=== PATIENT | male | born 1970 | race Caucasian/White ===

== ENCOUNTER → 2018-03-03 17:24 | Outpatient (CLI) | payer OTHER, SELFPAY ==
--- NOTE | 2018-03-03 17:27 | RAD_ITS ---
STUDY: X-RAY - LUMBAR SPINE REASON FOR EXAM: Male, 47 years old. Left hip has lost mobility. TECHNIQUE: 5 view(s) of the lumbar spine were obtained. COMPARISON: None FINDINGS: Normal lumbar lordosis. There is no substantial scoliosis. There is a normal alignment of the vertebrae. There is minimal L3 and L4 endplate spondylosis of the lumbar vertebrae. Normal disc space heights. The soft tissue structures are unremarkable. RAD/L/S Spine Min 4 Views IMPRESSION: Minimal degenerative changes. Electronically Signed: Lynnette Vee MD at 7:29 EDT , Service support ,
== END ==
PROVIDERS: Family Provider Family Medicine; PCP Family Medicine; Referring Provider Family Medicine; Visit Provider Family Medicine
DX: M54.5 Low back pain (principal)
CPT/HCPCS: 72110

== ENCOUNTER → 2018-08-29 15:26 | Outpatient (CLI) | payer OTHER, SELFPAY ==
[2015-01-31 08:19] VITALS: BMI 37.0
[2018-08-29 17:48] LABS: Absolute Lymphocyte Count 2.26 X10^3/ul (0.83-4.51); Absolute Neutrophil Count 3.9 X10^3/uL (2.0-7.7); Basophil# 0.02 X10^3/uL; Basophil% 0.3 % (0-1); Eosinophil# 0.09 X10^3/uL; Eosinophils% 1.3 % (0-5); Hematocrit 44.9 % (40-54); Hemoglobin 14.9 g/dl (13.0-16.5); Lymphocyte # 2.26 X10^3/ul (4.0); Mean Corp Hgb Conc 33.2 g/gl (32-36); Mean Corpuscular Hgb 28.2 pg (27.0-32.0); Mean Platelet Vol. 9.4 fl (6.2-12.0); Monocyte# 0.57 X10^3/uL; Monocyte% 8.3 % (0-10); Platelet Count 230 K/mm3 (150-450); RBC Distribution Width CV 12.8 % (11.6-14.6); RBC Distribution Width SD 39.8 fl (35.1-43.9); Red Blood Count 5.28 M/mm3 (4.6-6.2); White Blood Count 6.9 K/mm3 (4.4-11.0)
[2018-08-29 18:04] LABS: POSITIVE COUNT NO; POSITIVE DIFFERENTIAL NO; POSITIVE MORPHOLOGY NO
[2018-08-29 18:07] LABS: Erythrocyte Sedimentation Rate 23 mm/hr (0-15)
[2018-08-29 18:36] LABS: ALB/GLOB Ratio 1.1 RATIO (0.9-2.4); AST(SGOT) 28 U/L (15-37); Alanine Aminotransfer ALT/SGPT 48 U/L (16-61); Albumin, Serum 4.1 g/dL (3.2-5.0); Alkaline Phosphatase 78 U/L (45-117); Anion Gap 7 (5-15); BUN 17 mg/dL (7-18); BUN/Creat Ratio 15.7 RATIO (10-20); Calcium,Total 8.7 mg/dL (8.5-10.1); Chloride 107 mmol/L (98-107); Creatinine, Serum 1.08 mg/dL (0.70-1.30); EST Glomerular Filtration Rate 78 mL/min (>60); Est Glom Filt Rate - Afr Amer 95 mL/min (>60); Globulin 3.6 g/dL (2.2-4.2); Glucose 166 mg/dL (74-106); Iron 100 ug/dL (65-175); Magnesium 1.9 mg/dL (1.6-2.6); Potassium 4.1 mmol/L (3.5-5.1); Protein, Total 7.7 g/dL (6.4-8.2); Sodium Level 138 mmol/L (136-145)
[2018-08-29 18:41] LABS: Vitamin B12 615 pg/mL (211-911); Vitamin D,25 Hydroxy 16.8 ng/mL (29.95-100.01)
== END ==
PROVIDERS: Family Provider Family Medicine; PCP Family Medicine; Referring Provider Family Medicine; Visit Provider Family Medicine
DX: R25.2 Cramp and spasm (principal); R53.83 Other fatigue
CPT/HCPCS: 80053; 82306; 82607; 83540; 83735; 84403; 85025; 85652

== ENCOUNTER 2024-12-17 16:44 | Emergency (ER) | payer MEDICAID, SELFPAY ==
[2024-12-17] VITALS (8 sets, daily range): BP systolic 145–158; BP diastolic 73–100; PULSE 73–124; RESP 11–28; TEMP 36.8–37.2; O2SAT 96–100; BMI 35.1
--- NOTE | 2024-12-17 19:22 | EKG12_ITS ---
Test Reason : PALPITATIONS Blood Pressure : */* mmHG Vent. Rate : 102 BPM Atrial Rate : 102 BPM P-R Int : 164 ms QRS Dur : 88 ms QT Int : 342 ms P-R-T Axes : 43 0 19 degrees QTcB Int : 445 ms Sinus tachycardia Otherwise normal ECG Confirmed by Enoc Gatica ([id number]), editorial writer JOHN ROSADO ([id number]) on 12/18/2024 1:10:59 PM Referred By: Confirmed By: Enoc Gatica
--- NOTE | 2024-12-17 19:23 | EX.ED.DYSGE1 ---
HPI History of Present Illness Chief Complaint: Dizziness Detail of Chief Complaint: Dizziness Informant: patient Narrative Narrative: Patient presents to the emergency department complaint of dizziness that started earlier this afternoon. Patient states that he was outside using the weedeater when he got very weak and lightheaded and had to sit down. He had been outside for about an hour. It was very hot out. He thinks he got overheated. Patient then went and got into the pool and his gave him some water and then he started to vomit. Vomited twice and then try to eat something and vomited 2 times more. He denies any abdominal pain. He denies fever or recent illness. Patient had 3 cardiac stents placed a year and a half ago. He denies any chest pain today with these symptoms. He states that over the last week he has had some occasional discomfort in his chest from time to time. He states that he was told not to worry about it since he had his stents put in that he could have some occasional discomfort. Currently just feels lightheaded. [facility] Medical History (Updated 12/17/24 @ 22:[address] Vadim Ng, DO) Diabetes mellitus, type II ADD (attention deficit disorder) HTN (hypertension) Home Medications ?Medication ?Instructions ?Recorded ?Last Taken ?Type dextroamphetamine-amphetamine 30 30 mg PO DAILY 01/09/14 01/23/14 History mg tablet (Adderall) aspirin 81 mg tablet,delayed 81 mg PO DAILY ##30 01/11/14 01/23/14 Rx release (Ecotrin Low Strength) metformin 500 mg tablet 500 mg PO DAILYCM ##30 01/11/14 Unknown Rx cholecalciferol (vitamin D3) 50 2,000 unit PO DAILY 01/23/14 Unknown History mcg (2,000 unit) tablet (Vitamin D3) losartan 25 mg tablet 25 mg PO DAILY 01/23/14 01/31/15 07:15 History multivitamin with folic acid 400 1 tab PO DAILY 01/23/14 Unknown History mcg tablet (Thera) Allergy/AdvReac Type Severity Reaction Status Date / Time lisinopril Allergy Angioedema Verified 12/17/24 19:19 Surgical History (Updated 12/17/24 @ 19:16 by Lourdes Ames) Hx of heart artery stent Social History Smoking Status: Never smoker ROS ROS ED Review of Systems ROS Unobtainable: other Constitutional Constitutional ED: Reports lethargy; Denies chills, fever(s), sweats or weight loss Eyes Eyes: Denies blurry vision, change in vision or diplopia ENT ENT ED: Denies rhinorrhea or sore throat Cardiovascular Cardiovascular: Reports chest pain; Denies orthopnea or racing heartbeat Respiratory/Chest Respiratory/Chest: Denies cough, dyspnea, dyspnea on exertion, orthopnea or sputum Gastrointestinal Gastrointestinal: Reports nausea and vomiting; Denies abdominal pain or diarrhea Genitourinary Genitourinary ED: Denies dysuria, hematuria or urinary frequency Musculoskeletal Musculoskeletal: Denies arthralgias, back pain, myalgias or neck pain Integumentary Denies abscess, Abrasions or rash Neurologic Neurologic: Reports weakness and other Details: Lightheadedness ; Denies headache(s) Psychiatric Psychiatric: Denies anxiety, depression or suicidal thoughts Endocrine Endocrinology: Denies polydipsia, polyphagia or polyuria Hematologic/Lymphatic Hematologic/Lymphatic: Denies easy bleeding, easy bruising or lymphadenopathy Allergic/Immunologic Allergic/Immunologic ED: Denies mouth swelling, tongue swelling or urticaria EXAM Physical Exam Const Vital Signs: 12/17/24 16:45 12/17/24 18:44 12/17/24 20:00 Temperature 98.9 F Temperature Source Oral Pulse Rate 124 H 73 80 Pulse Rate [Lying] Pulse Rate [Sitting (for 1 minute prior to obtaining)] Pulse Rate [Standing (for 1 minute prior to obtaining)] Respiratory Rate 18 11 L 16 Blood Pressure 146/100 H 149/90 H 156/98 H Blood Pressure [Lying] Blood Pressure [Sitting (for 1 minute prior to obtaining)] Blood Pressure [Standing (for 1 minute prior to obtaining)] Blood Pressure Mean 115 109 117 Blood Pressure Mean [Lying] Blood Pressure Mean [Sitting (for 1 minute prior to obtaining)] Blood Pressure Mean [Standing (for 1 minute prior to obtaining)] Pulse Ox 96 98 97 Oxygen Delivery Method Room Air Room Air Room Air 12/17/24 20:00 12/17/24 20:30 12/17/24 20:31 Temperature Temperature Source Pulse Rate 79 78 Pulse Rate [Lying] 81 Pulse Rate [Sitting (for 1 minute prior to obtaining)] 88 Pulse Rate [Standing (for 1 minute prior to obtaining)] 84 Respiratory Rate 28 H 12 Blood Pressure 149/98 H 152/73 H Blood Pressure [Lying] 152/73 H Blood Pressure [Sitting (for 1 minute prior to obtaining)] 157/90 H Blood Pressure [Standing (for 1 minute prior to obtaining)] 145/87 H Blood Pressure Mean 112 93 Blood Pressure Mean [Lying] 99 Blood Pressure Mean [Sitting (for 1 minute prior to obtaining)] 112 Blood Pressure Mean [Standing (for 1 minute prior to obtaining)] 106 Pulse Ox 99 98 Oxygen Delivery Method 12/17/24 21:00 12/17/24 22:00 Temperature Temperature Source Pulse Rate 80 80 Pulse Rate [Lying] Pulse Rate [Sitting (for 1 minute prior to obtaining)] Pulse Rate [Standing (for 1 minute prior to obtaining)] Respiratory Rate 14 14 Blood Pressure 153/88 H 158/88 H Blood Pressure [Lying] Blood Pressure [Sitting (for 1 minute prior to obtaining)] Blood Pressure [Standing (for 1 minute prior to obtaining)] Blood Pressure Mean 105 111 Blood Pressure Mean [Lying] Blood Pressure Mean [Sitting (for 1 minute prior to obtaining)] Blood Pressure Mean [Standing (for 1 minute prior to obtaining)] Pulse Ox 100 97 Oxygen Delivery Method Positive well nourished and well developed General Appearance ED: well developed and NAD HEENT Reports TM's clear and moist mucous membranes normocephalic and atraumatic; Negative for trauma or tenderness Tympanic Membrane ED: Yes TM's clear Eyes PERRL and EOMs intact bilaterally General Eye ED: Negative for pale conjunctiva or scleral icterus Neck no lymphadenopathy, supple and no JVD General: Negative for tenderness Chest Wall inspection of chest normal and palpation of chest normal Chest: Negative for tenderness Resp normal respiratory effort and clear to auscultation bilaterally Effort and Inspection: Negative for respiratory distress or pain with movement Auscultation: Negative for rhonchi, wheezes or diminished lung sounds Cardio regular rate, regular rhythm, S1 normal heart sound, S2 normal heart sound and no murmurs Peripheral Pulses: pulses 2+ throughout GI normal to inspection, nondistended, normoactive bowel sounds, soft to palpation, non-tender, non-distended and no masses Back/Spine no CVA tenderness and no thoracic nor lumbar tenderness Extremity normal to inspection General Extremety ED: Negative for edema General Extremity: Negative for edema Neuro oriented x3, CN's II-XII intact bilaterally, no sensory deficits noted and gait normal Sensorium / Orientation: awake, alert, oriented to person, oriented to place and oriented to time Motor Exam: strength 5/5 throughout and strength abnormal Psych mental status grossly normal Skin no rashes or lesions noted and no wounds MDM MDM MDM Narrative Medical decision making narrative: Patient presents to the emergency department complaint of lightheadedness and vomiting and not feeling well after working outside in the heat. He has history of cardiac stents a year and a half ago. He denied any chest pain today but has intermittently had some mild chest discomfort. IV line established. EKG obtained arrival showed sinus rhythm with rate of 102 bpm with no acute ST segment changes. CBC with differential showed white count 6.2 with hemoglobin 14.7 and platelet count of 189. Chemistries unremarkable. First troponin was less than 6. Delta troponin 2 hours later was less than 6 as well. Patient was given a liter normal saline fluid bolus. He was given 4 mg Zofran IV. He felt markedly improved after treatment and was able to ambulate in department without difficulty and without dizziness. This point he will be discharged to home. Suspect he may have had heat related illness. Lab Data Attestation: I reviewed the patient's lab results. Labs: Laboratory Results - last 24 hr 12/17/24 12/17/24 19:43 21:38 WBC 6.2 RBC 5.08 Hgb 14.7 Hct 44.3 MCV 87.2 MCH 28.9 MCHC 33.2 RDW Std Deviation 45.0 H RDW Coeff of Jung 13.9 Plt Count 189 MPV 9.4 Immature Gran % (Auto) 0.300 Neut % (Auto) 61.6 Lymph % (Auto) 27.4 [place] % (Auto) 9.4 Eos % (Auto) 1.0 Baso % (Auto) 0.3 Absolute Neuts (auto) 3.8 Absolute Lymphs (auto) 1.70 Nucleated RBC % 0 Sodium 141 Potassium 4.0 Chloride 108 Carbon Dioxide 21.0 Anion Gap 12 BUN 23 H Creatinine 0.97 Estim Creat Clear Calc 114.54 Est GFR (MDRD) Non-Af 94 BUN/Creatinine Ratio 23.2 H Glucose 75 Calcium 9.0 Troponin T High Sens < 6 Troponin T Hi Sens 2 Hr < 6 EKG Initial EKG: Attestation: I personally reviewed and interpreted this EKG as follows: Discharge Plan Triage Chief Complaint: Dizziness ED Provider: Vadim Ng Dx/Rx/DC Orders Clinical Impression: Heat exhaustion, Vomiting Instructions: ED Heat Exhaustion, ED Vomiting (Adult) Prescriptions: No Action dextroamphetamine-amphetamine [Adderall] 30 MG tablet 30 mg PO DAILY Patient Comments: ADHD metformin 500 MG tablet 500 mg PO DAILYCM Qty: 30 0RF Patient Comments: Diabetes aspirin [Ecotrin Low Strength] 81 MG tablet,delayed release (DR/EC) 81 mg PO DAILY Qty: 30 0RF Patient Comments: Blood thinner for heart health losartan 25 MG tablet 25 mg PO DAILY cholecalciferol (vitamin D3) [Vitamin D3] 2,000 UNIT tablet 2,000 unit PO DAILY multivitamin with folic acid [Thera] 1 TABLET tablet 1 tab PO DAILY Primary Care Provider: Wes Mcduffie Referrals: Charan Rosenthal MD [Med Staff - Sign Erector] - 3-5 Days Print Language: Latvian Disposition Disposition: Home, Self Care
[2024-12-17] MEDS: 0.9% Normal Saline (1000mL) 1,000 ML 1000 ML IV (19:42)
--- OUTSIDE RECORDS SUMMARY | 2024-12-17 19:48 | XMS RPT_ITS | CCD ---
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 Role Phone Wes Gates MD Primary Care Provider [facility], Keti Unavailable Chata Joyce DO Primary Care Provider [phone] Wes Gates MD Primary Care Provider [facility], Keti Unavailable FABIANA LUCAS Referring Unavailable ZAHIRA VELIZ Attending Unavailable ZAHIRA VELIZ Admitting Unavailable WES GATES Primary Care Unavailable [facility], Keti Unavailable Aditya Henriquez RN, Kenzie Unavailable GALILEO REAVES Attending Unavailable WES GATES Primary Care Unavailable PROVIDER, UNKNOWN Consulting Unavailable PROVIDER, UNKNOWN Admitting Unavailable HAILE POLLOCK Consulting Unavailable ACOSTA LORA Admitting Unavailable JOVANNA DUNLAP Referring Unavailabl KRISH Bowers Attending Unavailable WES GATES Primary Care Unavailable Wes Gates MD Primary Care Provider Haagen TALCER.GRACE Rani Unavailable Suppan TALCER.GRACE Beatriz A Unavailable Suppan TALCER.GRACE Beatriz A Unavailable Suppan TALCER.GRACE, Beatriz A Unavailable [phone] Charan Rosenthal Referring Unavailable Charan Rosenthal Attending Unavailable Charan Rosenthal Primary Care Unavailable WES GATES Primary Care Unavailable JACOB MAYS Attending Unavailable WES GATES Primary Care Unavailable DEVAUGHN CHEN Attending Unavailable WES GATES Referring Unavailable WES GATES Primary Care Unavailable DEVAUGHN CHEN Attending Unavailable YAJAIRA, WES Barron Referring Unavailable YAJAIRA, WES Barron Primary Care Unavailable DEVAUGHN CHEN Attending Unavailable YAJAIRA, WES Barron Referring Unavailable GUSTAVO, DEVAUGHN Attending Unavailable YAJAIRA, WES Barron Referring Unavailable YAJAIRA, WES Barron Primary Care Unavailable DEVAUGHN CHEN Attending Unavailable YAJAIRA, WES Barron Referring Unavailable YAJAIAR, WES Barron Primary Care Unavailable YAJAIRA, WES Barron Primary Care Unavailable YAJAIRA, WES Barron Attending Unavailable YAJAIRA, WES Barron Primary Care Unavailable YAJAIRA, WES Barron Referring Unavailable PREETHI CAUSEY Attending Unavailable YAJAIRA, WES Barron Primary Care Unavailable YAJAIRA, WES Braron Referring Unavailable DEVAUGHN CHEN Attending Unavailable YAJAIRA, WES Barron Primary Care Unavailable YAJAIRA, WES Barron Primary Care Unavailable JOVANNA DUNLAP Attending Unavailabl e YAJAIRA, WES Barron Primary Care Unavailable YAJAIRA, WES Barron Referring Unavailable YAJAIRA, WES Barron Primary Care Unavailable YAJAIRA, WES Barron Attending Unavailable SELF Referring Unavailable Allergies Allergy Classification Reported Allergen(s) Allergy Type Date of Onset Reaction(s) Facility (20 sources) amLODIPine; Translations: [AMLODIPINE] Drug Allergy 3 Other: See Comments [facility] Work Phone: (1 source) Lisinopril Drug Allergy 4 [facility] Repository Medications Current Medications Medication Drug Class(es) Dates Sig (Normalized) Sig (Original) aspirin 81 mg chewable tablet (20 sources) Platelet Aggregation Inhibitor, Nonsteroidal Anti-inflammatory Drug Start: 04-29-2023 End: 07-28-2023 take 1 tablet by mouth once daily aspirin 81 mg chewable tablet Take 1 tablet by mouth once daily. 30 tablet 2 04/29/2023 Active End: 03-16-2022 take 1 tablet by mouth once daily aspirin, enteric coated (ASPIRIN, ENTERIC COATED) 81 mg EC tablet Take 81 mg by mouth once daily. 0 03/16/2022 Discontinued Comment on above: Take 81 mg by mouth once daily. Take 1 tablet by luis th once daily. atorvastatin 80 mg oral tablet (20 sources) HMG-CoA Reductase Inhibitor Start: 3 End: 6 take 1 tablet by mouth once daily at bedtime atorvastatin (LIPITOR) 80 mg tablet Take 1 tablet by mouth daily at bedtime. 90 tablet 3 07/26/2024 07/26/2025 Active Start: 03-18-2022 End: 03-18-2023 take 1 tablet by mouth once daily at bedtime for hyperlipidemia atorvastatin (LIPITOR) 20 mg tablet Indications: Type 2 diabetes mellitus without complication, without long-term current use of insulin ([facility] [place]) Take 1 tablet by mouth daily at bedtime. For cholesterol. 90 tablet 3 03/18/2022 Suspended Start: 08-06-2021 End: 03-16-2022 take 1 tablet by mouth once daily at bedtime for hyperlipidemia atorvastatin (LIPITOR) 20 mg tablet Indications: Mixed hyperlipidemia , Type 2 diabetes mellitus without complication, without long-term current use of insulin ([facility] [place]) Take 1 tablet by mouth daily at bedtime. For cholesterol. 90 tablet 1 08/06/2021 03/16/2022 Discontinued Comment on above: Take 1 tablet by luis th daily at bedtime. For cholesterol. Take 1 tablet by luis th daily at bedtime. Blood-Glucose Meter monitoring kit (1 source) Start: End: Blood-Glucose Meter monitoring kit Indications: Type 2 diabetes mellitus without complication, without long-term current use of insulin ([facility] [place]) Glucose Meter of Choice - Kit - Dx: Type 2 DM - Uncontrolled E11.65 1 Each 02/25/2024 02/26/2024 Active clopidogrel 75 mg oral tablet (20 sources) [id number] Platelet Inhibitor Start: End: take 1 tablet by mouth once daily clopidogrel (PLAVIX) 75 mg tablet Indications: Medication refill Take 1 tablet by mouth once daily. 90 tablet 3 09/13/2024 09/13/2025 Active Comment on above: Take 1 tablet by luis th once daily. 0.5 ml dulaglutide 3 mg/ml auto-injector (20 sources) GLP-1 Receptor Agonist Start: 025 End: inject 1 dose by subcutaneous injection every week dulaglutide (TRULICITY) 1.5 mg/0.5 mL pen injector Indications: Type 2 diabetes mellitus without complication, without long-term current use of insulin ([facility] [place]) Inject 1.5 mg subcutaneously one time a week. Inject dose once per week. Discard Pen After 2 mL 06/23/2024 06/23/2025 Active Start: 06-08-2024 End: 06-08-2025 inject 0.75 mg by subcutaneous injection every week dulaglutide (TRULICITY) 0.75 mg/0.5 mL pen injector Indications: Type 2 diabetes mellitus without complication, without long-term current use of insulin (HCC) Inject 0.75 mg subcutaneously one time a week. Inject dose once per week. Discard Pen After 2 mL 11 06/08/2024 06/23/2024 Discontinued Start: 06-04-2023 End: 06-03-2024 inject 0.75 mg by subcutaneous injection every week dulaglutide (TRULICITY) 0.75 mg/0.5 mL pen injector Indications: Type 2 diabetes mellitus without complication, without long-term current use of insulin (HCC) Inject 0.75 mg subcutaneously one time a week. Inject dose once per week. Discard Pen After 2 mL 11 06/04/2023 Active Comment on above: Inject 0.75 mg subcu taneously one time a week. Inject dose once per week. Discard Pen After dulaglutide (TRULICITY) 3 mg/0.5 mL pen injector (11 sources) Start: End: inject 3 mg by subcutaneous injection every week dulaglutide (TRULICITY) 3 mg/0.5 mL pen injector Indications: Type 2 diabetes mellitus without complication, without long-term current use of insulin (HCC) Inject 3 mg subcutaneously one time a week. 2 mL 11 08/28/2024 08/28/2025 Active DULoxetine 30 mg delayed release oral capsule (4 sources) Serotonin and Norepinephrine Reuptake Inhibitor Start: End: take 1 capsule by mouth once daily DULoxetine (CYMBALTA) 30 mg capsule Take 1 capsule by mouth once daily. 30 capsule 2 10/06/2024 01/04/2025 Active famotidine 20 mg oral tablet (11 sources) Histamine-2 Receptor Antagonist Start: 024 End: take 1 tablet by mouth once daily famotidine (PEPCID) 20 mg tablet Take 1 tablet by mouth once daily. 30 tablet 5 06/29/2023 12/26/2023 Active Start: 05-10-2023 End: 06-09-2023 take 1 tablet by mouth once daily famotidine (PEPCID) 20 mg tablet Take 1 tablet by mouth once daily. 30 tablet 0 05/10/2023 06/09/2023 Active Start: 04-28-2023 End: 05-28-2023 take 1 tablet by mouth twice daily famotidine (PEPCID) 20 mg tablet Take 1 tablet by mouth two times a day. 60 tablet 0 04/28/2023 05/10/2023 Discontinued Comment on above: Take 1 tablet by luis th two times a day. Take 1 tablet by luis th once daily. glimepiride 2 mg oral tablet (20 sources) Sulfonylurea Start: 12-23-19 End: 09-14-19 take 1 tablet by mouth once daily at breakfast glimepiride (AMARYL) 2 mg tablet Indications: Type 2 diabetes mellitus without complication, without long-term current use of insulin (HCC) Take 1 tablet by mouth daily with breakfast. 90 tablet 3 09/13/2024 09/13/2025 Active Start: 08-06-2021 End: 12-22-2022 take 1 tablet by mouth once daily at breakfast glimepiride (AMARYL) 1 mg tablet Indications: Type 2 diabetes mellitus without complication, without long-term current use of insulin (HCC) Take 1 tablet by mouth daily with breakfast. 90 tablet 0 05/13/2022 12/22/2022 Discontinued Comment on above: Take 1 tablet by luis th daily with breakfast. 24 hr isosorbide mononitrate 30 mg extended release oral tablet (20 sources) Nitrate Vasodilator Start: End: take 1 tablet by mouth once daily isosorbide mononitrate ER (IMDUR) 30 mg 24 hr tablet Take 1 tablet by mouth once daily. 90 tablet 3 07/19/2024 07/19/2025 Active Start: 04-29-2023 End: 08-12-2023 take 1 tablet by mouth once daily isosorbide mononitrate ER (IMDUR) 30 mg 24 hr tablet Take 1 tablet by mouth once daily. 90 tablet 1 07/29/2023 08/12/2023 Discontinued Comment on above: Take 1 tablet by luis th once daily. meloxicam 15 mg oral tablet (13 sources) Nonsteroidal Anti-inflammatory Drug Start: 08-15-19 25 End: 11-13-19 25 take 1 tablet by mouth once daily meloxicam (MOBIC) 15 mg tablet Indications: Bilateral hip pain , Acute pain of right shoulder Take 1 tablet by mouth once daily. 30 tablet 08/14/2024 11/12/2024 Active pioglitazone 30 mg oral tablet (20 sources) Peroxisome Proliferator Receptor alpha Agonist, Peroxisome Proliferator Receptor gamma Agonist, Thiazolidinedione Start: 07-29-19 24 End: 08-15-19 26 take 1 tablet by mouth once daily pioglitazone (ACTOS) 30 mg tablet Indications: Type 2 diabetes mellitus without complication, without long-term current use of insulin ([facility] [place]) Take 1 tablet by mouth once daily. 90 tablet 3 08/14/2024 08/14/2025 Active Start: 09-01-2022 End: 07-29-2023 take 1 tablet by mouth once daily pioglitazone (ACTOS) 15 mg tablet Indications: Type 2 diabetes mellitus without complication, without long-term current use of insulin (HCC) Take 1 tablet by mouth once daily. 30 tablet 11 09/01/2022 07/29/2023 Discontinued Comment on above: Take 1 tablet by lusi th once daily. semaglutide (OZEMPIC) 0.25 mg or 0.5 mg (2 mg/3 mL) pen (5 sources) Start: 05-11-2023 End: 05-10-2024 semaglutide (OZEMPIC) 0.25 mg or 0.5 mg (2 mg/3 mL) pen Indications: Type 2 diabetes mellitus without complication, without long-term current use of insulin (HCC) Inject 0.25 mg subcutaneously one time a week. 3 mL 5 05/11/2023 05/10/2024 Active Start: 05-10-2023 End: 05-11-2023 semaglutide (OZEMPIC) 0.25 m g or 0.5 mg (2 mg/3 mL) pen Indications: Type 2 diabetes mellitus without complication, without long-term current use of insulin (HCC) Inject 0.25 mg subcutaneously one time a week. 3 mL 5 05/10/2023 05/11/2023 Discontinued Start: 05-10-2023 End: 05-09-2024 semaglutide (OZEMPIC) 0.25 m g or 0.5 mg (2 mg/3 mL) pen Indications: Type 2 diabetes mellitus without complication, without long-term current use of insulin (HCC) Inject 0.25 mg subcutaneously one time a week. 3 mL 5 05/10/2023 05/09/2024 Active Comment on above: Inject 0.25 mg subcu taneously one time a week. TRUE METRIX GLUCOSE METER (20 sources) Start: 05-10-2023 TRUE METRIX GLUCOSE METER as directed. 05/10/2023 Active Start: 05-10-2023 TRUE METRIX GL UCOSE METER as directed. 0 05/10/2023 Active Comment on above: as directed. Completed/Discontinued Medications Medication Drug Class(es) Dates Sig (Normalized) Sig (Original) amLODIPine 2.5 mg oral tablet (9 sources) Dihydropyridine Calcium Channel Inessa Start: 06-16-2022 End: 01-21-2023 take 1 tablet by mouth once daily amLODIPine (NORVASC) 2.5 mg tablet Indications: Primary hypertension Take 1 tablet by mouth once daily. 30 tablet 1 12/21/2022 01/21/2023 Discontinued Comment on above: Take 1 tablet by luis th once daily. amphetamine aspartate 7.5 mg / amphetamine sulfate 7.5 mg / dextroamphetamine saccharate 7.5 mg / dextroamphetamine sulfate 7.5 mg oral tablet (20 sources) Central Nervous System Stimulant Start: 02-19-2023 End: 12-21-2022 take 1 tablet by mouth once daily Amphetamine-Dextr oamphetamine (ADDERALL) 30 mg tablet Indications: Attention deficit disorder, unspecified hyperactivity presence Take 1 tablet by mouth once daily for 30 days. Do not start before February 19, 2023. 30 tablet 0 02/19/2023 12/21/2022 Discontinued Start: 01-20-2023 End: 12-21-2022 take 1 tablet by mouth once daily Amphetamine-Dextroamphetamine (ADDERALL) 30 mg tablet Indications: Attention deficit disorder, unspecified hyperactivity presence Take 1 tablet by mouth once daily for 30 days. Do not start before January 20, 2023. 30 tablet 0 01/20/2023 12/21/2022 Discontinued Start: 12-21-2022 End: 04-27-2023 take 1 tablet by mouth twice daily Amphetamine-Dextroamphetamine (ADDERALL) 30 mg tablet Indications: Attention deficit disorder, unspecified hyperactivity presence Take 1 tablet by mouth twice daily for 30 days. Do not start before February 19, 2023. 60 tablet 0 02/19/2023 04/27/2023 Discontinued Start: 11-03-2022 End: 12-03-2022 take 2 tablets by mouth twice daily amphetamine-dextroamphetamine (ADDERALL) 15 mg tablet Indications: ADHD (attention deficit hyperactivity disorder), inattentive type Take 2 tablets by mouth twice daily for 30 days. Do not start before November 03, 2022. 120 tablet 0 11/03/2022 12/03/2022 Active Start: 10-30-2022 End: 12-21-2022 take 1 tablet by mouth once daily Amphetamine-Dextroamphetamine (ADDERALL) 30 mg tablet Indications: Attention deficit disorder, unspecified hyperactivity presence Take 1 tablet by mouth once daily for 30 days. 30 tablet 0 12/21/2022 12/21/2022 Discontinued Start: 06-09-2022 End: 10-04-2022 take 2 tablets by mouth twice daily amphetamine-dextroamphetamine (ADDERALL) 15 mg tablet Indications: ADHD (attention deficit hyperactivity disorder), inattentive type Take 2 tablets by mouth twice daily for 30 days. 120 tablet 0 09/04/2022 10/04/2022 Active Start: 03-05-2022 End: 07-16-2022 take 1 tablet by mouth twice daily Amphetamine-Dextroamphetamine (ADDERALL) 30 mg tablet Indications: ADHD (attention deficit hyperactivity disorder), inattentive type Take 1 tablet by mouth twice daily for 30 days. Do not start before March 05, 2022. 60 tablet 0 03/05/2022 07/16/2022 Discontinued Start: 03-05-2022 End: 02-02-2022 take 1 tablet by mouth twice daily Amphetamine-Dextroamphetamine (ADDERALL) 30 mg tablet Indications: ADHD (attention deficit hyperactivity disorder), inattentive type Take 1 tablet by mouth twice daily for 30 days. Do not start before March 05, 2022. 60 tablet 0 03/05/2022 02/02/2022 Discontinued Start: 03-05-2022 End: 02-02-2022 take 1 tablet by mouth twice daily Amphetamine-Dextroamphetamine (ADDERALL) 30 mg tablet Indications: ADHD (attention deficit hyperactivity disorder), inattentive type Take 1 tablet by mouth twice daily for 30 days. Do not start before March 05, 2022. 60 tablet 0 03/05/2022 02/02/2022 Discontinued Start: 03-05-2022 End: 04-04-2022 take 1 tablet by mouth twice daily Amphetamine-Dextroamphetamine (ADDERALL) 30 mg tablet Indications: ADHD (attention deficit hyperactivity disorder), inattentive type Take 1 tablet by mouth twice daily for 30 days. Do not start before March 05, 2022. 60 tablet 0 03/05/2022 04/04/2022 Active Start: 03-04-2022 End: 02-02-2022 take 1 tablet by mouth twice daily Amphetamine-Dextroamphetamine (ADDERALL) 30 mg tablet Indications: ADHD (attention deficit hyperactivity disorder), inattentive type Take 1 tablet by mouth twice daily for 7 days. Do not start before March 04, 2022. 60 tablet 0 03/04/2022 02/02/2022 Discontinued Start: 08-07-2021 End: 06-09-2022 take 1 tablet by mouth twice daily Amphetamine-Dextroamphetamine (ADDERALL) 30 mg tablet Indications: ADHD (attention deficit hyperactivity disorder), inattentive type Take 1 tablet by mouth twice daily for 30 days. 60 tablet 0 02/02/2022 06/09/2022 Discontinued Comment on above: Take 1 tablet by luis th twice daily for 7 days. Take 1 tablet by luis th twice daily for 7 days. Do not start before September 07, 2021. Take 1 tablet by luis th twice daily for 7 days. Do not start before October 07, 2021. Take 1 tablet by luis th twice daily for 7 days. Do not start before March 04, 2022. Take 1 tablet by luis th twice daily for 30 days. Do not start before March 05, 2022. Take 1 tablet by luis th twice daily for 30 days. Take 2 tablets by mo uth twice daily for 30 days. Take 2 tablets by mo uth twice daily for 30 days. Do not start before November 03, 2022. Take 1 tablet by luis th once daily for 30 days. Do not start before January 20, 2023. Take 1 tablet by luis th once daily for 30 days. Do not start before February 19, 2023. Take 1 tablet by luis th twice daily for 30 days. Do not start before January 20, 2023. Take 1 tablet by luis twice daily for 30 days. Do not start before February 19, 2023. Take 1 tablet by luis once daily for 30 days. Take 1 tablet by luis once daily for 30 days. Do not start before November 30, 2022. ASHWAGANDHA EXTRACT ORAL (7 sources) take 500 mg by mouth once daily at bedtime ASHWAGANDHA EXTRACT ORAL Take 500 mg by mouth daily at bedtime. 0 Suspended take 500 mg by mouth once daily at bedtime ASHWAGANDHA EXTRACT ORAL Take 500 mg by mouth daily at bedtime. 0 Active Comment on above: Take 500 mg by mouth daily at bedtime. benoxinate hydrochloride 4 mg/ml / fluorescein sodium 2.5 mg/ml ophthalmic solution (1 source) Diagnostic Dye Start: 3 End: 3 fluorescein-benoxina te 0.25-0.4 % 1 Drop (FLURESS) losartan potassium 25 mg oral tablet (13 sources) Angiotensin 2 Receptor Inessa Start: 2 End: 3 take 1 tablet by mouth once daily losartan (COZAAR) 25 mg tablet Indications: Primary hypertension Take 1 tablet by mouth once daily. 30 tablet 3 04/21/2022 06/16/2022 Discontinued (Side Effects) Start: 10-16-2021 End: 10-16-2022 take 1 tablet by mouth once daily losartan (COZAAR) 50 mg tablet Indications: Primary hypertension Take 1 tablet by mouth once daily. 90 tablet 3 10/16/2021 03/16/2022 Discontinued Start: 08-07-2021 End: 10-16-2021 take 1 tablet by mouth once daily losartan (COZAAR) 100 mg tablet Indications: Primary hypertension Take 1 tablet by mouth once daily. 90 tablet 3 08/07/2021 10/16/2021 Discontinued Comment on above: Take 1 tablet by luis once daily. 24 hr metFORMIN hydrochloride 500 mg extended release oral tablet (19 sources) Biguanide Start: 2 End: 3 take 1 tablet by mouth twice daily at mealtime metFORMIN (GLUCOPHAGE) 500 mg tablet Indications: Type 2 diabetes mellitus without complication, without long-term current use of insulin (HCC) Take 1 tablet by mouth twice daily with meals. 60 tablet 11 03/18/2022 04/21/2022 Discontinued (Other) Start: 08-07-2021 End: 09-01-2022 take 2 tablets by mouth once daily at breakfast metFORMIN ER (GLUCOPHAGE XR) 500 mg 24 hr tablet Indications: Type 2 diabetes mellitus without complication, without long-term current use of insulin (HCC) Take 2 tablets by mouth daily with breakfast. 60 tablet 5 04/21/2022 09/01/2022 Discontinued Comment on above: Take 4 tablets by mo ut daily with breakfast. Take 1 tablet by luis th twice daily with meals. Take 2 tablets by mo uth daily with breakfast. 24 hr metoprolol succinate 25 mg extended release oral tablet (14 sources) beta-Adrenergic Inessa Start: 04-29-20 End: 05-10-20 take 1 tablet by mouth once daily at bedtime metoprolol succinate ER (TOPROL XL) 25 mg 24 hr tablet Take 1 tablet by mouth daily at bedtime. 90 tablet 3 05/11/2023 02/17/2024 Discontinued Comment on above: Take 1 tablet by luis th daily at bedtime. phenylephrine hydrochloride 25 mg/ml ophthalmic solution (3 sources) alpha-1 Adrenergic Agonist Start: 07-06-19 End: 07-06-19 PHENYLephrine 2.5 % 1 Drop (AK-DILATE, TOMÁS-SYNEPHRINE) Start: 07-06-2024 End: 07-06-2024 1 Drop, BOTH EYES, ONCE, 1 d ose, On Wed07/06/24 at 1000, FOR OPHTHALMIC USE ONLY PROTECT FROM LIGHT Start: 09-01-2022 End: 09-01-2022 PHENYLephrine 2.5 % 1 Drop ( AK-DILATE, TOMÁS-SYNEPHRINE) proparacaine hydrochloride 5 mg/ml ophthalmic solution (3 sources) Local Anesthetic Start: 07-06-2024 End: 07-06-2024 proparacaine 0.5 % 1 Drop (ALCAINE) Start: 07-06-2024 End: 07-06-2024 1 Drop, BOTH EYES, ONCE, 1 d ose, On Wed07/06/24 at 1000, FOR THE EYE Start: 09-01-2022 End: 03-28-2023 proparacaine 0.5 % 1 Drop (A LCAINE) tropicamide 10 mg/ml ophthalmic solution (2 sources) Anticholinergic Start: 07-06-2024 End: 07-06-2024 tropicamide 1 % 1 Drop (MYDRIACYL) Start: 07-06-2024 End: 07-06-2024 1 Drop, BOTH EYES, ONCE, 1 d ose, On [place] 07/06/24 at 1000, FOR THE EYE Problems Active Problems Problem Classification Problem Date Documented Da te Episodic/Chronic Administrative/social admission (2 sources) Repeated prescription; Translations: [Encounter for issue of repeat prescription] 02-08-2024 Episodic Asthma (20 sources) Mild intermittent asthma; Translations: [Mild intermittent asthma, uncomplicated] Onset: 12-26-2015 12-26-2015 Chronic Blindness and vision defects (4 sources) Bilateral regular astigmatism; Translations: [Regular astigmatism, bilateral] Episodic Coronary atherosclerosis and other heart disease (20 sources) Exercise-induced angina; Translations: [Exertional angina] Onset: 04-23-2023 04-23-2023 Chronic Deficiency and other anemia (1 source) Iron deficiency anemia; Translations: [Iron deficiency anemia, unspecified] 11-03-2024 Episodic Deficiency and other anemia (1 source) Iron deficiency anemia, unspecified; Translations: [Iron deficiency anemia, unspecified iron deficiency anemia type] Onset: 11-03-2024 Episodic Diabetes mellitus with complications (1 source) Type 2 diabetes mellitus; Translations: [Type 2 diabetes mellitus with diabetic neuropathy, unspecified] Chronic Diabetes mellitus without complication (20 sources) Type 2 diabetes mellitus without complication; Translations: [Type 2 diabetes mellitus without complications] Onset: 12-26-2015 Chronic Disorders of lipid metabolism (20 sources) Mixed hyperlipidemia; Translations: [Mixed hyperlipidemia] Onset: 04-27-2023 Chronic Disorders usually diagnosed in infancy, childhood, or adolescence (20 sources) Attention deficit hyperactivity disorder, predominantly inattentive type; Translations: [Other specified behavioral and emotional disorders with onset usually occurring in childhood and adolescence] Onset: 08-28-2011 07-04-2021 Chronic Essential hypertension (20 sources) Essential hypertension; Translations: [Essential (primary) hypertension] Onset: 08-28-2011 Chronic Malaise and fatigue (1 source) Fatigue; Translations: [Other fatigue] 11-24-2024 Episodic Nutritional deficiencies (2 sources) Vitamin D deficiency; Translations: [Vitamin D deficiency, unspecified] Onset: 11-03-2024 11-03-2024 Chronic Nutritional deficiencies (2 sources) Cobalamin deficiency; Translations: [Deficiency of other specified B group vitamins] Onset: 11-03-2024 11-03-2024 Episodic Other circulatory disease (20 sources) History of angioplasty; Translations: [Peripheral vascular angioplasty status with implants and grafts] Onset: 05-10-2023 05-10-2023 Chronic Other connective tissue disease (1 source) Cramp; Translations: [Cramp and spasm] Episodic Other eye disorders (2 sources) Disorder of lacrimal gland; Translations: [Dry eye syndrome of bilateral lacrimal glands] Episodic Other non-traumatic joint disorders (1 source) Pain in right knee; Translations: [Pain in joint, lower leg] Episodic Other non-traumatic joint disorders (20 sources) Hip pain; Translations: [Pain in right hip] Onset: 08-31-2024 08-14-2024 Episodic Other non-traumatic joint disorders (19 sources) Pain in right shoulder; Translations: [Pain in joint, shoulder region] Onset: 08-31-2024 08-14-2024 Episodic Other non-traumatic joint disorders (1 source) Pain in right hip; Translations: [Bilateral hip pain] Onset: 08-31-2024 Episodic Other non-traumatic joint disorders (1 source) Pain in left hip; Translations: [Bilateral hip pain] Onset: 08-31-2024 Episodic Other nutritional; endocrine; and metabolic disorders (20 sources) Body mass index 30+ - obesity; Translations: [Obesity, unspecified] Onset: 04-23-2023 04-23-2023 Chronic Other nutritional; endocrine; and metabolic disorders (1 source) Obesity, unspecified; Translations: [Obesity (BMI 30-39.9)] Onset: 04-23-2023 Chronic Thyroid disorders (2 sources) Hypothyroidism; Translations: [Hypothyroidism, unspecified] Onset: 11-03-2024 11-03-2024 Chronic Unclassified (2 sources) Acute pain of right shoulder 08-14-2024 Past or Other Problems Problem Classification Problem Date Documented Da te Episodic/Chronic Allergic reactions (20 sources) Allergic reaction; Translations: [Allergy, unspecified, initial encounter] Onset: 04-24-2023 04-24-2023 Episodic Nonspecific chest pain (20 sources) Chest pain; Translations: [Chest pain, unspecified] Onset: 04-23-2023 Resolved: 05-10-2023 04-23-2023 Episodic Other nutritional; endocrine; and metabolic disorders (20 sources) Obese class II; Translations: [Obesity, unspecified] Onset: 04-26-2023 Resolved: 06-23-2024 04-27-2023 Chronic Other nutritional; endocrine; and metabolic disorders (20 sources) Obese class I; Translations: [Obesity, unspecified] Onset: 05-11-2023 Resolved: 06-23-2024 05-11-2023 Chronic Other screening for suspected conditions (not mental disorders or infectious disease) (20 sources) Patient encounter status; Translations: [Encounter for screening for malignant neoplasm of colon] Onset: 02-25-2023 Episodic Screening and history of mental health and substance abuse codes (2 sources) Encounter for screening examination for other mental health and behavioral disorders; Translations: [Encounter for screening for depression] Onset: 06-23-2024 Episodic Results Test Name Value Interpretation Reference Range Facility [id number] 11-17-2024 [id number] O ID: [id number] Author: DEVAUGHN CHEN PT Service: ? Author Type: Physical Therapist Type: [id number] Filed: 11/17/2024 16:24 Note Text: [facility] Physical Therapy Plan of Care Certification Patient Name: Sivan Tamayo : 1970 [facility] #: [id number] Date: 11/17/2024 To: Wes Gates MD From Therapist: Devaughn Chen PT RE: Patient Certification/ Recertification Your review, approval and electronic signature are required in order to comply with Payor: [place] [employer] / Plan: [facility]ICA[facility] / Product Type: Medicaid / regulations. The identified Physical Therapy PLAN OF CARE for the patient is as follows: M25.511 Acute pain of right shoulder (primary encounter diagnosis) M25.551, M25.552 Bilateral hip pain PLAN OF CARE UPDATE: Assessment: Sivan Tamayo demonstrates significant improvement in rising from a chair, standing, walking, bending, heavy exertion, lifting, physical activities, recreational activities, reaching behind back, reaching overhead, and use hand with arm at shoulder level . The patient has progressed toward goals. Patient continues to present with impairments in overall function, symptom management, and tissue tenderness that interfere with . Current prognosis is Good due to: current objective clinical presentation, good overall health status, positive past response to therapy, within-session changes, good support system/ coping skills . The patient will benefit from continued skilled therapy services to meet the updated goals for this plan of care as noted below. Goals updated on 11/17/2024. Goals for Episode of Care: established 08/31/24 [place] in home exercise program. Met Patient will decrease pain rating by 2 points to meet minimal clinical important difference for numeric pain rating scale. Partially met Patient will increase active ROM of R shoulder and PROM of B hips to WNL to allow pt to to improve postural alignment and to improve performance of ADLs. Improving Patient will demonstrate increase in R shoulder ER and B hips strength to 5/5 during manual muscle testing in order to improve function for home management tasks, leisure / recreation skills, and moderate to heavy functional tasks. Improving Perform overhead motions and bending/lifting with decreased report of symptoms/pain in 4-6 weeks. Improving Perform ADLs and work tasks without pain. Partially met Time Frame for Goals and Treatment : 01/17/25 Planned Interventions, Frequency, and Duration: 1x/month, 8 weeks Total Number of Visits Planned: 2 Patient to be seen for Therapeutic exercise (84827), Manual therapy (12219), Neuromuscular re-education (63158), Therapeutic activities (71855), Self-mcfp management (70182), Patient/Family/Caregiv er Education, Body Mechanics Training PLAN FOR NEXT VISIT: For further details regarding this patient refer to the Physical Therapy electronically documented visit dated 11/17/2024. Provider Attestation I have reviewed the treatment plan for Sivan Tamayo, CCF# [id number] for the period of 11/17/24 -- 01/17/25, established on 11/17/2024. Signature certifies the need for therapy services. Normal [facility] CNTHERAPYon 11-17-2024 CNTHERAPY OT/PT/Speech Visit (PTWS) BELKISSIVAN Beatrice ([id number]) 1970 M Date Time Provider Department 11/17/24 2:30 PM DEVAUGHN CHEN PTCARMEN Date Time Provider Department Center 11/17/2024 2:30 PM [id number], SEAN PTWS Aletha Bruno Reason for Visit: PT Progress Note [1596] Primary Visit Diagnosis:Acute pain of right shoulder [M25.511] Other Visit Diagnosis:Bilateral hip pain [M25.551, M25.552] Allergies As of Date: 11/17/2024 Noted Allergy Reaction AMLODIPINE 04/24/2023 14 - Other: See Comments Comments: Facial numbness Date Reviewed: 11/03/2024 Reviewed by: Aydin Tanner LPN - Fully Assessed Prescriptions as of 11/17/2024 - DULoxetine (CYMBALTA) 30 mg capsule Take 1 capsule by mouth once daily. - clopidogrel (PLAVIX) 75 mg tablet Take 1 tablet by mouth once daily. - Lancets Test blood sugar(s) 1 times daily. Dx: Type 2 DM - Uncontrolled E11.65 Insulin: No - glimepiride (AMARYL) 2 mg tablet Take 1 tablet by mouth daily with breakfast. - blood sugar diagnostic (BLOOD GLUCOSE TEST) test strip Test blood sugar(s) 1 times daily. Dx: Type 2 DM - Uncontrolled E11.65 Insulin: No - dulaglutide (TRULICITY) 3 mg/0.5 mL pen injector Inject 3 mg subcutaneously one time a week. - pioglitazone (ACTOS) 30 mg tablet Take 1 tablet by mouth once daily. - atorvastatin (LIPITOR) 80 mg tablet Take 1 tablet by mouth daily at bedtime. - isosorbide mononitrate ER (IMDUR) 30 mg 24 hr tablet Take 1 tablet by mouth once daily. - dulaglutide (TRULICITY) 1.5 mg/0.5 mL pen injector Inject 1.5 mg subcutaneously one time a week. Inject dose once per week. Discard Pen After - TRUE METRIX GLUCOSE METER as directed. - aspirin 81 mg chewable tablet Take 1 tablet by mouth once daily. Normal [facility] CNOVon 11-03-2024 CNOV Office Visit (CARDMM ) SIVAN TAMAYO ([id number]) 1970 M Date Time Provider Department 11/03/24 11:30 AM PREETHI CAUSEY During your visit today, we recorded the following information about you: Blood pressure Weight Height 100/62 118.3 kg 1.829 m Preethi Causey APRN.PATIENT CASE MANAGER 11/03/2024 1:50 PM Signed [facility] Department of Cardiovascular Medicine SECTION OF CLINICAL CARDIOLOGY OUTPATIENT VISIT DATE November 03, 2024 OUTPATIENT VISIT TYPE ESTABLISHED PRIMARY CARE PHYSICIAN: Wes Gates [address] [place] [address] REFERRING PHYSICIAN: No referring provider defined for this encounter. CHIEF COMPLAINT: Follow Up (Lightheadedness since beginning Cymbalta/Occasional L Chest discomfort - same as past with Dr Dunlap/Concerned about BP being too low/And blood sugar being low recently/Only coffee this morning/EKG Today/BRIDGETT 02/17/24 M[place]za/EKG 05/11/23 /Cath 04/28/23/Echo 04/27/23/Stress 04/26/23) HISTORY OF PRESENT ILLNESS: The patient is a 54-year-old male with a history of CAD, status post three stent placements in 2022, presenting for a follow-up visit. He last saw Dr. Dunlap in February 2024. The patient reports intermittent, fleeting chest pain that is localized and non-radiating. He denies dyspnea but notes occasional dizziness, which he attributes to recent initiation of Cymbalta. He also reports episodes of hand tremors. He monitors his blood pressure at home, typically around 110/80-85?mmHg, but notes it was lower than usual today. He denies any significant issues since his last visit. He has lost approximately 19 pounds since June. He denies snoring and reports variable sleep quality, sometimes waking after four hours but generally able to return to sleep. He occasionally experiences daytime somnolence, dozing off in the afternoons. He was previously diagnosed with sleep apnea and was prescribed a CPAP machine, which he found intolerable. He uses a product called Boomstick to help clear his nasal passages before sleep. He drinks coffee in the morning, which his prepares with protein and creamer. He is a [id number] grandparent, caring for his grandchildren, ages 10, 7, and 2 months, for 12 hours a day, twice a week. He plays pickleball but does not engage in other forms of exercise and describes himself as out of shape. He is currently taking atorvastatin, isosorbide mononitrate 30?mg once daily, and Cymbalta. Subjective PAST MEDICAL HISTORY Diagnosis Date ADD (attention deficit disorder) 08/28/2011 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) Diabetes (HCC) Hypertension 08/28/2011 Mixed hyperlipidemia Obesity S/P angioplasty with stent PAST SURGICAL HISTORY Procedure Laterality Date ARTHROSCOPY KNEE DIAGNOSTIC W/WO SYNOVIAL BX SPX Left 06/07/2014 meniscus OSTECTOMY CALCANEUS SPUR W/WO PLNTAR FASCIAL RLS Left PCI/STENT 04/27/2023 [facility] 04/27/23 PCI x3 (diagonal, pda and plv1). REPAIR NASAL SEPTUM PERFORATN devation REPAIR UMBILICAL HERNIA 01/08/2016 Social History Tobacco Use Smoking status: Never Smokeless tobacco: Never Vaping Use Vaping status: Never Used Substance Use Topics Alcohol use: No Drug use: No FAMILY HISTORY Problem Relation Age of Onset Diabetes Mother Lung Cancer Mother Amblyopia Father other (gastric CA) Father Diabetes Brother Cataract Brother Coronary Artery Disease Brother Large AMI at age 39 ALLERGIES: ALLERGIES Allergen Reactions Amlodipine Other: See Comments Facial numbness MEDICATIONS: DULoxetine (CYMBALTA) 30 mg capsule Take 1 capsule by mouth once daily. clopidogrel (PLAVIX) 75 mg tablet Take 1 tablet by mouth once daily. Lancets Test blood sugar(s) 1 times daily. Dx: Type 2 DM - Uncontrolled E11.65 Insulin: No glimepiride (AMARYL) 2 mg tablet Take 1 tablet by mouth daily with breakfast. blood sugar diagnostic (BLOOD GLUCOSE TEST) test strip Test blood sugar(s) 1 times daily. Dx: Type 2 DM - Uncontrolled E11.65 Insulin: No dulaglutide (TRULICITY) 3 mg/0.5 mL pen injector Inject 3 mg subcutaneously one time a week. pioglitazone (ACTOS) 30 mg tablet Take 1 tablet by mouth once daily. meloxicam (MOBIC) 15 mg tablet Take 1 tablet by mouth once daily. atorvastatin (LIPITOR) 80 mg tablet Take 1 tablet by mouth daily at bedtime. isosorbide mononitrate ER (IMDUR) 30 mg 24 hr tablet Take 1 tablet by mouth once daily. dulaglutide (TRULICITY) 1.5 mg/0.5 mL pen injector Inject 1.5 mg subcutaneously one time a week. Inject dose once per week. Discard Pen After TRUE METRIX GLUCOSE METER as directed. aspirin 81 mg chewable tablet Take 1 tablet by mouth once daily. Objective PHYSICAL EXAMINATION: BP 100/62 (BP Po (more content not included)... Normal [facility] [id number] 11-03-2024 ECG01 Ventricular Rate : 9 1 BPM Atrial Rate : 91 BPM P-R Interval : 188 ms QRS Duration : 92 ms Q-T Interval : 346 ms QTC Calculation(Bazett) : 425 ms Calculated P [place] : 42 degrees Calculated R [place] : 18 degrees Calculated T [place] : 34 degrees NORMAL SINUS RHYTHM NORMAL ECG Confirmed by MD TOSCANO QARAB ([id number]) on 11/07/2024 2:39:12 PM NAME : SIVAN TAMAYO PID : [id number] : 1970 Gender : Male Race : ORD : Procedure Date : Nov 03 2024 11:27:12 Edit Date : Nov 07 2024 14:39:16 Diagnosis: NORMAL SINUS RHYTHM NORMAL ECG Confirmed by MD TOSCANO QARAB ([id number]) on 11/07/2024 2:39:12 PM Test Reason : [facility] : [facility] Over[facility] By : MD TOSCANO QARAB Edited By : MD TOSCANO QARAB Referred By : Preethi Causey Acquired by : Lisa Lewis [facility] CNTHERAPYon 10-24-2024 CNTHERAPY OT/PT/Speech Visit (PTWS) SIVAN TAMAYO ([id number]) 1970 M Date Time Provider Department 10/24/24 12:30 PM DEVAUGHN CHEN PTCARMEN Date Time Provider Department Center 10/24/2024 12:30 PM [id number] CHEN Aletha Carr Reason for Visit: Physical Therapy [503] Primary Visit Diagnosis:Acute pain of right shoulder [M25.511] Other Visit Diagnosis:Bilateral hip pain [M25.551, M25.552] Allergies As of Date: 10/24/2024 Noted Allergy Reaction AMLODIPINE 04/24/2023 14 - Other: See Comments Comments: Facial numbness Date Reviewed: 08/14/2024 Reviewed by: Margarita Gan LPN - Fully Assessed Prescriptions as of 10/24/2024 - DULoxetine (CYMBALTA) 30 mg capsule Take 1 capsule by mouth once daily. - clopidogrel (PLAVIX) 75 mg tablet Take 1 tablet by mouth once daily. - Lancets Test blood sugar(s) 1 times daily. Dx: Type 2 DM - Uncontrolled E11.65 Insulin: No - glimepiride (AMARYL) 2 mg tablet Take 1 tablet by mouth daily with breakfast. - blood sugar diagnostic (BLOOD GLUCOSE TEST) test strip Test blood sugar(s) 1 times daily. Dx: Type 2 DM - Uncontrolled E11.65 Insulin: No - dulaglutide (TRULICITY) 3 mg/0.5 mL pen injector Inject 3 mg subcutaneously one time a week. - pioglitazone (ACTOS) 30 mg tablet Take 1 tablet by mouth once daily. - meloxicam (MOBIC) 15 mg tablet Take 1 tablet by mouth once daily. - atorvastatin (LIPITOR) 80 mg tablet Take 1 tablet by mouth daily at bedtime. - isosorbide mononitrate ER (IMDUR) 30 mg 24 hr tablet Take 1 tablet by mouth once daily. - dulaglutide (TRULICITY) 1.5 mg/0.5 mL pen injector Inject 1.5 mg subcutaneously one time a week. Inject dose once per week. Discard Pen After - TRUE METRIX GLUCOSE METER as directed. - aspirin 81 mg chewable tablet Take 1 tablet by mouth once daily. Normal [facility] CNTHERAPYon 10-03-2024 CNTHERAPY OT/PT/Speech Visit (PTWS) SIVAN TAMAYO ([id number]) 1970 M Date Time Provider Department 10/03/24 12:30 PM DEVAUGHN CHEN PTWS Date Time Provider Department Center 10/03/2024 12:30 PM [id number], SEAN PTWS Aletha Carr Reason for Visit: PT Progress Note [1596] Primary Visit Diagnosis:Acute pain of right shoulder [M25.511] Other Visit Diagnosis:Bilateral hip pain [M25.551, M25.552] Allergies As of Date: 10/03/2024 Noted Allergy Reaction AMLODIPINE 04/24/2023 14 - Other: See Comments Comments: Facial numbness Date Reviewed: 08/14/2024 Reviewed by: Margarita Gan LPN - Fully Assessed Prescriptions as of 10/06/2024 - clopidogrel (PLAVIX) 75 mg tablet Take 1 tablet by mouth once daily. - Lancets Test blood sugar(s) 1 times daily. Dx: Type 2 DM - Uncontrolled E11.65 Insulin: No - glimepiride (AMARYL) 2 mg tablet Take 1 tablet by mouth daily with breakfast. - blood sugar diagnostic (BLOOD GLUCOSE TEST) test strip Test blood sugar(s) 1 times daily. Dx: Type 2 DM - Uncontrolled E11.65 Insulin: No - dulaglutide (TRULICITY) 3 mg/0.5 mL pen injector Inject 3 mg subcutaneously one time a week. - pioglitazone (ACTOS) 30 mg tablet Take 1 tablet by mouth once daily. - meloxicam (MOBIC) 15 mg tablet Take 1 tablet by mouth once daily. - atorvastatin (LIPITOR) 80 mg tablet Take 1 tablet by mouth daily at bedtime. - isosorbide mononitrate ER (IMDUR) 30 mg 24 hr tablet Take 1 tablet by mouth once daily. - dulaglutide (TRULICITY) 1.5 mg/0.5 mL pen injector Inject 1.5 mg subcutaneously one time a week. Inject dose once per week. Discard Pen After - TRUE METRIX GLUCOSE METER as directed. - aspirin 81 mg chewable tablet Take 1 tablet by mouth once daily. 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: Addendum Therapy (PT/OT/Speech/Resp) ID: [id number] 10/03/2024 12:41 PM Author: DEVAUGHN CHEN Signed by DEVAUGHN CHEN PT on 10/03/2024 at 12:41 PM * * * This document replaces document [id number] * * * Document text: Program_ID:[id number] Access Code: [email or web address] URL: [email or web address] Date: 10-03-2024 Prepared By: Devaughn Chen Program Notes Exercises - Sidelying Hip Abduction - 1 x daily - 7 x weekly - 3 sets - 10 reps - Clamshell with Resistance - 1 x daily - 7 x weekly - 3 sets - 10 reps - Prone Quadriceps Stretch with Strap - 1 x daily - 7 x weekly - 3 sets - 10 reps - Scapular Wall Slides - 1 x daily - 7 x weekly - 3 sets - 10 reps - Shoulder W - External Rotation with Resistance - 1 x daily - 7 x weekly - 3 sets - 10 reps - Prone Scapular Retraction Arms at Side - 1 x daily - 7 x weekly - 3 sets - 10 reps - Prone Scapular Slide with Shoulder Extension - 1 x daily - 7 x weekly - 3 sets - 10 reps - Half Kneeling Hip Flexor Stretch - 1 x daily - 7 x weekly - 3 sets - 10 reps - Modified Ludwig Stretch - 1 x daily - 7 x weekly - 3 sets - 10 reps - Hip Flexor Stretch with Chair - 1 x daily - 7 x weekly - 3 sets - 10 reps - Doorway Pec Stretch at 90 Degrees Abduction - 1 x daily - 7 x weekly - 3 sets - 3 reps - Supine Chest Stretch on Foam Roll - 1 x daily - 7 x weekly - 3 sets - 10 reps - Standing Quadratus Lumborum Stretch with Doorway - 1 x daily - 7 x weekly - 3 sets - 3 reps - Supine Quadratus Lumborum Stretch - 1 x daily - 7 x weekly - 3 sets - 3 reps - Supine Transversus Abdominis Bracing - Hands on Stomach - 1 x daily - 7 x weekly - 3 sets - 10 reps - Neutral Curl Up with Straight Leg - 1 x daily - 7 x weekly - 3 sets - 10 reps - Supine Bug with Leg Extension - 1 x daily - 7 x weekly - 3 sets - 10 reps -- Normal [facility] THERAPY NTon 10-03-2024 THERAPY NT HNO ID: [id number] Author: DEVAUGHN CHEN PT Service: ? Author Type: Physical Therapist Type: Therapy (PT/OT/Speech/Resp) Filed: 10/03/2024 12:41 Note Text: Program_ID:[id number] Access Code: [email or web address] URL: [email or web address] [email or web address]/ Date: 10-03-2024 Prepared By: Devaughn Chen Program Notes Exercises - Sidelying Hip Abduction - 1 x daily - 7 x weekly - 3 sets - 10 reps - Clamshell with Resistance - 1 x daily - 7 x weekly - 3 sets - 10 reps - Prone Quadriceps Stretch with Strap - 1 x daily - 7 x weekly - 3 sets - 10 reps - Scapular Wall Slides - 1 x daily - 7 x weekly - 3 sets - 10 reps - Shoulder W - External Rotation with Resistance - 1 x daily - 7 x weekly - 3 sets - 10 reps - Prone Scapular Retraction Arms at Side - 1 x daily - 7 x weekly - 3 sets - 10 reps - Prone Scapular Slide with Shoulder Extension - 1 x daily - 7 x weekly - 3 sets - 10 reps - Half Kneeling Hip Flexor Stretch - 1 x daily - 7 x weekly - 3 sets - 10 reps - Modified Ludwig Stretch - 1 x daily - 7 x weekly - 3 sets - 10 reps - Hip Flexor Stretch with Chair - 1 x daily - 7 x weekly - 3 sets - 10 reps - Doorway Pec Stretch at 90 Degrees Abduction - 1 x daily - 7 x weekly - 3 sets - 3 reps - Supine Chest Stretch on Foam Roll - 1 x daily - 7 x weekly - 3 sets - 10 reps - Standing Quadratus Lumborum Stretch with Doorway - 1 x daily - 7 x weekly - 3 sets - 3 reps - Supine Quadratus Lumborum Stretch - 1 x daily - 7 x weekly - 3 sets - 3 reps - Supine Transversus Abdominis Bracing - Hands on Stomach - 1 x daily - 7 x weekly - 3 sets - 10 reps - Neutral Curl Up with Straight Leg - 1 x daily - 7 x weekly - 3 sets - 10 reps - Supine Bug with Leg Extension - 1 x daily - 7 x weekly - 3 sets - 10 reps Normal [facility] CNTHERAPYon 09-19-2024 CNTHERAPY OT/PT/Speech Visit (PTWS) SIVAN TAMAYO ([id number]) 1970 M Date Time Provider Department 09/19/24 11:30 AM DEVAUGHN CHEN PTCARMEN Date Time Provider Department Center 09/19/2024 11:30 AM [id number], SEAN PTCARMEN Carr Reason for Visit: Physical Therapy [503] Primary Visit Diagnosis:Acute pain of right shoulder [M25.511] Other Visit Diagnosis:Bilateral hip pain [M25.551, M25.552] Allergies As of Date: 09/19/2024 Noted Allergy Reaction AMLODIPINE 04/24/2023 14 - Other: See Comments Comments: Facial numbness Date Reviewed: 08/14/2024 Reviewed by: Margarita Gan LPN - Fully Assessed Prescriptions as of 09/21/2024 - clopidogrel (PLAVIX) 75 mg tablet Take 1 tablet by mouth once daily. - Lancets Test blood sugar(s) 1 times daily. Dx: Type 2 DM - Uncontrolled E11.65 Insulin: No - glimepiride (AMARYL) 2 mg tablet Take 1 tablet by mouth daily with breakfast. - blood sugar diagnostic (BLOOD GLUCOSE TEST) test strip Test blood sugar(s) 1 times daily. Dx: Type 2 DM - Uncontrolled E11.65 Insulin: No - dulaglutide (TRULICITY) 3 mg/0.5 mL pen injector Inject 3 mg subcutaneously one time a week. - pioglitazone (ACTOS) 30 mg tablet Take 1 tablet by mouth once daily. - meloxicam (MOBIC) 15 mg tablet Take 1 tablet by mouth once daily. - atorvastatin (LIPITOR) 80 mg tablet Take 1 tablet by mouth daily at bedtime. - isosorbide mononitrate ER (IMDUR) 30 mg 24 hr tablet Take 1 tablet by mouth once daily. - dulaglutide (TRULICITY) 1.5 mg/0.5 mL pen injector Inject 1.5 mg subcutaneously one time a week. Inject dose once per week. Discard Pen After - TRUE METRIX GLUCOSE METER as directed. - aspirin 81 mg chewable tablet Take 1 tablet by mouth once daily. 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: Addendum Therapy (PT/OT/Speech/Resp) ID: [id number] 09/19/2024 12:12 PM Author: DEVAUGHN CHEN Signed by DEVAUGHN CHEN PT on 09/19/2024 at 12:12 PM * * * This document replaces document [id number] * * * Document text: Program_ID:[id number] Access Code: [email or web address] URL: [email or web address]/ Date: 09-19-2024 Prepared By: Devaughn Chen Program Notes Exercises - Sidelying Hip Abduction - 1 x daily - 7 x weekly - 3 sets - 10 reps - Clamshell with Resistance - 1 x daily - 7 x weekly - 3 sets - 10 reps - Prone Quadriceps Stretch with Strap - 1 x daily - 7 x weekly - 3 sets - 10 reps - Scapular Wall Slides - 1 x daily - 7 x weekly - 3 sets - 10 reps - Shoulder W - External Rotation with Resistance - 1 x daily - 7 x weekly - 3 sets - 10 reps - Prone Scapular Retraction Arms at Side - 1 x daily - 7 x weekly - 3 sets - 10 reps - Prone Scapular Slide with Shoulder Extension - 1 x daily - 7 x weekly - 3 sets - 10 reps - Half Kneeling Hip Flexor Stretch - 1 x daily - 7 x weekly - 3 sets - 10 reps - Modified Ludwig Stretch - 1 x daily - 7 x weekly - 3 sets - 10 reps - Hip Flexor Stretch with Chair - 1 x daily - 7 x weekly - 3 sets - 10 reps - Doorway Pec Stretch at 90 Degrees Abduction - 1 x daily - 7 x weekly - 3 sets - 3 reps - Supine Chest Stretch on Foam Roll - 1 x daily - 7 x weekly - 3 sets - 10 reps -- Normal [facility] THERAPY NTon 09-19-2024 THERAPY NT HNO ID: [id number] Author: DEVAUGHN CHEN PT Service: ? Author Type: Physical Therapist Type: Therapy (PT/OT/Speech/Resp) Filed: 09/19/2024 12:12 Note Text: Program_ID:[id number] Access Code: [email or web address] URL: [email or web address] [employer]/ Date: 09-19-2024 Prepared By: Devaughn hCen Program Notes Exercises - Sidelying Hip Abduction - 1 x daily - 7 x weekly - 3 sets - 10 reps - Clamshell with Resistance - 1 x daily - 7 x weekly - 3 sets - 10 reps - Prone Quadriceps Stretch with Strap - 1 x daily - 7 x weekly - 3 sets - 10 reps - Scapular Wall Slides - 1 x daily - 7 x weekly - 3 sets - 10 reps - Shoulder W - External Rotation with Resistance - 1 x daily - 7 x weekly - 3 sets - 10 reps - Prone Scapular Retraction Arms at Side - 1 x daily - 7 x weekly - 3 sets - 10 reps - Prone Scapular Slide with Shoulder Extension - 1 x daily - 7 x weekly - 3 sets - 10 reps - Half Kneeling Hip Flexor Stretch - 1 x daily - 7 x weekly - 3 sets - 10 reps - Modified Ludwig Stretch - 1 x daily - 7 x weekly - 3 sets - 10 reps - Hip Flexor Stretch with Chair - 1 x daily - 7 x weekly - 3 sets - 10 reps - Doorway Pec Stretch at 90 Degrees Abduction - 1 x daily - 7 x weekly - 3 sets - 3 reps - Supine Chest Stretch on Foam Roll - 1 x daily - 7 x weekly - 3 sets - 10 reps Normal [facility] CNTHERAPYon 09-05-2024 CNTHERAPY OT/PT/Speech Visit (PTWS) SIVAN TAMAYO ([id number]) 1970 M Date Time Provider Department 09/05/24 3:45 PM DEVAUGHN CHEN PTCARMEN Date Time Provider Department Center 09/05/2024 3:45 PM [id number], SEAN PTWS Aletha Carr Reason for Visit: Physical Therapy [503] Primary Visit Diagnosis:Acute pain of right shoulder [M25.511] Other Visit Diagnosis:Bilateral hip pain [M25.551, M25.552] Allergies As of Date: 09/05/2024 Noted Allergy Reaction AMLODIPINE 04/24/2023 14 - Other: See Comments Comments: Facial numbness Date Reviewed: 08/14/2024 Reviewed by: Margarita Gan LPN - Fully Assessed Prescriptions as of 09/06/2024 - dulaglutide (TRULICITY) 3 mg/0.5 mL pen injector Inject 3 mg subcutaneously one time a week. - pioglitazone (ACTOS) 30 mg tablet Take 1 tablet by mouth once daily. - meloxicam (MOBIC) 15 mg tablet Take 1 tablet by mouth once daily. - atorvastatin (LIPITOR) 80 mg tablet Take 1 tablet by mouth daily at bedtime. - isosorbide mononitrate ER (IMDUR) 30 mg 24 hr tablet Take 1 tablet by mouth once daily. - dulaglutide (TRULICITY) 1.5 mg/0.5 mL pen injector Inject 1.5 mg subcutaneously one time a week. Inject dose once per week. Discard Pen After - blood sugar diagnostic (BLOOD GLUCOSE TEST) test strip Test blood sugar(s) 1 times daily. Dx: Type 2 DM - Uncontrolled E11.65 Insulin: No - clopidogrel (PLAVIX) 75 mg tablet Take 1 tablet by mouth once daily. - glimepiride (AMARYL) 2 mg tablet Take 1 tablet by mouth daily with breakfast. - TRUE METRIX GLUCOSE METER as directed. - Lancets lancets Test blood sugar(s) 1 times daily. Dx: Type 2 DM - Uncontrolled E11.65 Insulin: No - aspirin 81 mg chewable tablet Take 1 tablet by mouth once daily. Normal [facility] [id number] 08-31-2024 [id number] HNO ID: [id number] Author: DEVAUGHN CHEN PT Service: ? Author Type: Physical Therapist Type: [id number] Filed: 08/31/2024 15:45 Note Text: [facility] Physical Therapy Plan of Care Certification Patient Name: Sivan Tamayo : 1970 CC #: [id number] Date: 08/31/2024 To: Wes Gates MD From Therapist: Devaughn Chen PT RE: Patient Certification/ Recertification Your review, approval and electronic signature are required in order to comply with Payor: [place] [employer] / Plan: [facility] MEDICA[facility] / Product Type: Medicaid / regulations. The identified Physical Therapy PLAN OF CARE for the patient is as follows: M25.511 Acute pain of right shoulder (primary encounter diagnosis) M25.551, M25.552 Bilateral hip pain PLAN OF CARE: Assessment: Sivan Tamayo presents with chief complaint of R shoulder and B hip pain that interferes with sitting, rising from a chair, standing, walking, stair negotiation, bending, heavy exertion, lifting, physical activities, recreational activities, squatting, working . The patient presents with impairments in ADL's, overall function, range of motion, strength, symptom management, and tissue tenderness. Patient did not complete the PROMIS? (Patient Reported Outcome Measures Information System). Prognosis for therapy is Good due to: current objective clinical presentation, good support system/ coping skills, good overall health status . The patient will benefit from skilled therapy services to meet the goals established for this plan of care as noted below. Goals for Episode of Care: established 08/31/24 [place] in home exercise program. Patient will decrease pain rating by 2 points to meet minimal clinical important difference for numeric pain rating scale. Patient will increase active ROM of R shoulder and PROM of B hips to WNL to allow pt to to improve postural alignment and to improve performance of ADLs. Patient will demonstrate increase in R shoulder ER and B hips strength to 5/5 during manual muscle testing in order to improve function for home management tasks, leisure / recreation skills, and moderate to heavy functional tasks. Perform overhead motions and bending/lifting with decreased report of symptoms/pain in 4-6 weeks. Perform ADLs and work tasks without pain. Time Frame for Goals and Treatment : 10/31/24 Planned Interventions, Frequency, and Duration: Current Frequency: 1x every other week Duration: 8 weeks Total Number of Visits Planned: 4 Planned Treatment Interventions: Therapeutic exercise (10280), Neuromuscular re-education (94448), Manual therapy (95805), Therapeutic activities (68242), Self-mcfp management (99657), Patient/Family/Caregiv er Education, Body Mechanics Training PLAN FOR NEXT VISIT: Assess carry over of HEP, manual to R scacolby VALLEJO's Patient demonstrates good understanding of plan of care and treatment. The above goals and plan of care were discussed and agreed upon by patient/family. For further details regarding this patient refer to the Physical Therapy electronically documented visit dated 08/31/2024. Provider Attestation I have reviewed the treatment plan for Sivan Tamayo, [facility]# [id number] for the period of 08/31/24 -- 10/31/24, established on 08/31/2024. Signature certifies the need for therapy services. Normal [facility] CNTHERAPYon 08-31-2024 CNTHERAPY OT/PT/Speech Visit (PTWS) SIVAN TAMAYO ([id number]) 1970 M Date Time Provider Department 08/31/24 11:30 AM DEVAUGHN CHEN PTWS Date Time Provider Department Center 08/31/2024 11:30 AM [id number], SEAN PTCARMEN Aletha Carr Reason for Visit: PT Eval [747] Primary Visit Diagnosis:Acute pain of right shoulder [M25.511] Other Visit Diagnosis:Bilateral hip pain [M25.551, M25.552] Allergies As of Date: 08/31/2024 Noted Allergy Reaction AMLODIPINE 04/24/2023 14 - Other: See Comments Comments: Facial numbness Date Reviewed: 08/14/2024 Reviewed by: Margarita Gan LPN - Fully Assessed Prescriptions as of 08/31/2024 - dulaglutide (TRULICITY) 3 mg/0.5 mL pen injector Inject 3 mg subcutaneously one time a week. - pioglitazone (ACTOS) 30 mg tablet Take 1 tablet by mouth once daily. - meloxicam (MOBIC) 15 mg tablet Take 1 tablet by mouth once daily. - atorvastatin (LIPITOR) 80 mg tablet Take 1 tablet by mouth daily at bedtime. - isosorbide mononitrate ER (IMDUR) 30 mg 24 hr tablet Take 1 tablet by mouth once daily. - dulaglutide (TRULICITY) 1.5 mg/0.5 mL pen injector Inject 1.5 mg subcutaneously one time a week. Inject dose once per week. Discard Pen After - blood sugar diagnostic (BLOOD GLUCOSE TEST) test strip Test blood sugar(s) 1 times daily. Dx: Type 2 DM - Uncontrolled E11.65 Insulin: No - clopidogrel (PLAVIX) 75 mg tablet Take 1 tablet by mouth once daily. - glimepiride (AMARYL) 2 mg tablet Take 1 tablet by mouth daily with breakfast. - TRUE METRIX GLUCOSE METER as directed. - Lancets lancets Test blood sugar(s) 1 times daily. Dx: Type 2 DM - Uncontrolled E11.65 Insulin: No - aspirin 81 mg chewable tablet Take 1 tablet by mouth once daily. 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: Therapy (PT/OT/Speech/Resp) ID: [id number] 08/31/2024 12:13 PM Author: DEVAUGHN CHEN Signed by DEVAUGHN CHEN PT on 08/31/2024 at 12:13 PM Document text: Program_ID:[id number] Access Code: [email or web address] URL: [email or web address] Date: 08-31-2024 Prepared By: Devaughn Chen Program Notes Exercises - Sidelying Hip Abduction - 1 x daily - 7 x weekly - 3 sets - 10 reps - Clamshell with Resistance - 1 x daily - 7 x weekly - 3 sets - 10 reps - Prone Quadriceps Stretch with Strap - 1 x daily - 7 x weekly - 3 sets - 10 reps - Scapular Wall Slides - 1 x daily - 7 x weekly - 3 sets - 10 reps - Shoulder W - External Rotation with Resistance - 1 x daily - 7 x weekly - 3 sets - 10 reps - Prone Scapular Retraction Arms at Side - 1 x daily - 7 x weekly - 3 sets - 10 reps - Prone Scapular Slide with Shoulder Extension - 1 x daily - 7 x weekly - 3 sets - 10 reps -- Normal [facility] THERAPY NTon 08-31-2024 THERAPY NT HNO ID: [id number] Author: DEVAUGHN CHEN PT Service: ? Author Type: Physical Therapist Type: Therapy (PT/OT/Speech/Resp) Filed: 08/31/2024 12:13 Note Text: Program_ID:[id number] Access Code: [email or web address] URL: [email or web address] Date: 08-31-2024 Prepared By: Devaughn Chen Program Notes Exercises - Sidelying Hip Abduction - 1 x daily - 7 x weekly - 3 sets - 10 reps - Clamshell with Resistance - 1 x daily - 7 x weekly - 3 sets - 10 reps - Prone Quadriceps Stretch with Strap - 1 x daily - 7 x weekly - 3 sets - 10 reps - Scapular Wall Slides - 1 x daily - 7 x weekly - 3 sets - 10 reps - Shoulder W - External Rotation with Resistance - 1 x daily - 7 x weekly - 3 sets - 10 reps - Prone Scapular Retraction Arms at Side - 1 x daily - 7 x weekly - 3 sets - 10 reps - Prone Scapular Slide with Shoulder Extension - 1 x daily - 7 x weekly - 3 sets - 10 reps Normal [facility] 08-28-2024 [facility] Telephone (FAMWS) SIVAN TAMAYO ([id number]) 1970 M Date Time Provider Department 08/28/24 WES GATES [facility] During your visit today, we recorded the following information about you: Smitha Minor RN 08/28/2024 2:43 PM Signed Spouse calls to ask about Trulicity. She reports Dr. Gates wanted her to send a message to remind him to send a new prescription to increase dose. Patient received message back saying refill wasn't due as it requested the 1.5 mg current dose. Pended Trulicity 3 mg /0.5 ml dose for review. KAN Turk William J, MD 08/28/2024 2:48 PM Signed sent Allergies As of Date: 08/28/2024 Noted Allergy Reaction AMLODIPINE 04/24/2023 14 - Other: See Comments Comments: Facial numbness Date Reviewed: 08/14/2024 Reviewed by: Margarita Gan LPN - Fully Assessed Reason for Visit: Medication Problem [65] Primary Visit Diagnosis:Type 2 diabetes mellitus without complication, without long-term current use of insulin (HCC) [E11.9] Order(s):dulaglutide (TRULICITY) 3 mg/0.5 mL pen injectorInject 3 mg subcutaneously one time a week.Disp: 2 mLRfl: 11 Prescriptions as of 08/28/2024 - dulaglutide (TRULICITY) 3 mg/0.5 mL pen injector Inject 3 mg subcutaneously one time a week. - pioglitazone (ACTOS) 30 mg tablet Take 1 tablet by mouth once daily. - meloxicam (MOBIC) 15 mg tablet Take 1 tablet by mouth once daily. - atorvastatin (LIPITOR) 80 mg tablet Take 1 tablet by mouth daily at bedtime. - isosorbide mononitrate ER (IMDUR) 30 mg 24 hr tablet Take 1 tablet by mouth once daily. - dulaglutide (TRULICITY) 1.5 mg/0.5 mL pen injector Inject 1.5 mg subcutaneously one time a week. Inject dose once per week. Discard Pen After - blood sugar diagnostic (BLOOD GLUCOSE TEST) test strip Test blood sugar(s) 1 times daily. Dx: Type 2 DM - Uncontrolled E11.65 Insulin: No - clopidogrel (PLAVIX) 75 mg tablet Take 1 tablet by mouth once daily. - glimepiride (AMARYL) 2 mg tablet Take 1 tablet by mouth daily with breakfast. - TRUE METRIX GLUCOSE METER as directed. - Lancets lancets Test blood sugar(s) 1 times daily. Dx: Type 2 DM - Uncontrolled E11.65 Insulin: No - aspirin 81 mg chewable tablet Take 1 tablet by mouth once daily. Problem List As Of Date 08/28/2024 Noted Resolved ADD (attention deficit disorder) [F98.8] 08/28/2011 Essential hypertension [I10] 08/28/2011 Type 2 diabetes mellitus without complication, *12/26/2015 Mild intermittent asthma without complication [*12/26/2015 Special screening for malignant neoplasm of col*02/25/2023 Exertional chest pain [R07.9] 04/23/2023 05/10/2023 Obesity (BMI 30-39.9) [E66.9] 04/23/2023 Allergic reaction [T78.40XA] 04/24/2023 Obesity, Class II, BMI 35-39.9 [E66.812] 04/26/2023 06/23/2024 Coronary artery disease involving chicken ranch strat[place]*04/27/2023 Mixed hyperlipidemia [E78.2] 04/27/2023 S/P angioplasty with stent [Z95.820] 05/10/2023 Obesity, Class I, BMI 30-34.9 [E66.811] 05/11/2023 06/23/2024 Prescriptions ordered this encounter Disp Refills Start End DULAGLUTIDE 3 MG/0.5 ML SUBCUTANEOUS* 2 mL 11 08/28/2024 08/28/2025 Route: SUBCUTANEOUS Sig: Inject 3 mg subcutaneously one time a week. Encounter Status:Closed by CAROLINA THOMAS on 08/28/24 Normal [facility] BOBBYOVirene 08-14-2024 CNEM Office Visit (RICHIEWS ) SIVAN TAMAYO ([id number]) 1970 M Date Time Provider Department 08/14/24 3:40 PM WES GATES During your visit today, we recorded the following information about you: Pulse Blood pressure Weight 85/minute 120/82 120.7 kg Wes Gates MD 08/14/2024 4:18 PM Signed Patient presents with: right shoulder pain: Raising arm up above head is hard. bilateral hip pain: Wonders if this is contributing numbness in toes. Numbness is mostly when sits and lays down. Feels like hips lock up. HPI: Patient presents today for office visit for acute visit. Shoulder has bothered him for a month. Was playing pickelball. Did an overhead hit and noted pain. Lying down makes it worse. No current cracking or popping. No direct trauma. No swelling or redness or warmth. No numbness or tingling down the arm that is new. Not doing anything with the shoulder. Last A1c was 7.7 Hips have bothered him for some time. Catches at times. Pain is in his groin bilaterally. Been going on for some time but getting worse. No trauma. Has sciatic pain on the left frequently. No weakness. No issues with or bladder Needs refill on dm meds. Sugars are at 120's Lowest was 98. MEDICATIONS: Current Outpatient Medications Medication Sig atorvastatin (LIPITOR) 80 mg tablet Take 1 tablet by mouth daily at bedtime. isosorbide mononitrate ER (IMDUR) 30 mg 24 hr tablet Take 1 tablet by mouth once daily. dulaglutide (TRULICITY) 1.5 mg/0.5 mL pen injector Inject 1.5 mg subcutaneously one time a week. Inject dose once per week. Discard Pen After blood sugar diagnostic (BLOOD GLUCOSE TEST) test strip Test blood sugar(s) 1 times daily. Dx: Type 2 DM - Uncontrolled E11.65 Insulin: No clopidogrel (PLAVIX) 75 mg tablet Take 1 tablet by mouth once daily. glimepiride (AMARYL) 2 mg tablet Take 1 tablet by mouth daily with breakfast. pioglitazone (ACTOS) 30 mg tablet Take 1 tablet by mouth once daily. TRUE METRIX GLUCOSE METER as directed. Lancets lancets Test blood sugar(s) 1 times daily. Dx: Type 2 DM - Uncontrolled E11.65 Insulin: No aspirin 81 mg chewable tablet Take 1 tablet by mouth once daily. No current facility-administered medications for this visit. 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 REPAIR NASAL SEPTUM PERFORATN devation REPAIR UMBILICAL HERNIA 01/08/2016 FAMILY HISTORY Problem Relation Age of Onset Diabetes Mother Lung Cancer Mother Amblyopia Father other (gastric CA) Father Diabetes Brother Cataract Brother Coronary Artery Disease Brother Large AMI at age 39 Social History Tobacco Use Smoking status: Never Smokeless tobacco: Never Vaping Use Vaping status: Never Used Substance Use Topics Alcohol use: No Drug use: No Reviewed current medications, allergies, past medical history, surgical history, family history and social history today. REVIEW OF SYSTEMS All other reviewed and negative other than HPI. VITALS: BP 120/82 Pulse 85 Wt 120.7 kg (266 lb) SpO2 97% BMI 36.08 kg/m? Last 4 Encounter Wt Readings: Date: Wt: 06/23/2024 127 kg (279 lb 15.8 oz) 02/17/2024 123.5 kg (272 lb 4.3 oz) 08/12/2023 120.2 kg (264 lb 15.9 oz) 07/13/2023 118.8 kg (262 lb) PHYSICAL EXAMINATION: General appearance: Well appearing, alert, in no acute distress, well-hydrated, well nourished. Skin: Skin color, texture, turgor normal, no suspicious rashes or lesions Shoulder Musculoskeletal Exam Inspection Right Right shoulder inspection is normal. Ecchymosis: none Peripheral edema: none Atrophy: none Deformity: none Symmetry: symmetric Skin tenting: none Prior incision: none Palpation Right Right shoulder palpation is normal. Range of Motion Right Active ROM: normal. Passive ROM: normal. Strength Right Right shoulder strength is normal. Neurovascular Right Right shoulder nerve sensation is normal. Special Tests Right Right shoulder special tests are normal. Hip Musculoskeletal Exam Inspection Right Right hip inspection is normal. Palpation Right Right hip palpation is normal. Range of Motion Right Active ROM: abnormal and pain. Passive ROM: abnormal and pain. Left Left hip range of motion (more content not included)... Normal [facility] XR HIP LEANA 5V PEL+ AP/LAT EA HIPon 08-14-2024 XR HIP LEANA 5V PEL+ AP/LAT EA HIP * * *Final Report* * * DATE OF EXAM: Aug 14 2024 4:44PM [id number] - XR HIP LEANA 5V PEL+ AP/LAT EA HIP / PROCEDURE REASON: multiple diagnoses * * * * Physician Interpretation * * * * HIP RADIOGRAPHS - BILATERAL HISTORY: Bilateral hip pain TECHNOLOGIST PROVIDED HISTORY (if applicable): chronic pain in mostly right hip in hip flexor area/groin and lateral side, wants to lock up at times left not as bad no inj TECHNIQUE: XR HIP LEANA 5V PEL+ AP/LAT EA HIP COMPARISON: None available RESULT: The bilateral femoral head and neck morphology is normal, and there is no focal or acute radiographic abnormality. There is moderate superior narrowing of both hip joints with marginal osteophytes Pelvic ring is intact. There is mild symphysis pubis arthrosis. Sacroiliac joints appear intact. . IMPRESSION: 1. Moderate osteoarthrosis of the bilateral hips Accounts Payable Processor: [facility] Transcribe Date/Time: Aug 16 2024 5:27P Dictated by : ANTHONY DILLON MD This examination was interpreted and the report reviewed and electronically signed by: ANTHONY DILLON MD on Aug 16 2024 5:27PM EST [id number] Normal [facility] XR SHLDR >/=3V AP/DENIS AP/OTH R RTon 08-14-2024 XR SHLDR >/=3V AP/DENIS AP/OTHR RT * * *Final Report* * * DATE OF EXAM: Aug 14 2024 4:44PM WOX [id number] - XR SHLDR >/=3V AP/DENIS AP/OTHR RT / PROCEDURE REASON: Acute pain of right shoulder * * * * Physician Interpretation * * * * SHOULDER RADIOGRAPHS - RIGHT HISTORY: Acute pain of right shoulder TECHNOLOGIST PROVIDED HISTORY (if applicable): playing pickle ball a month ago and hit the ball overhead and pain in upper right arm/shoulder since TECHNIQUE: XR SHLDR >/=3V AP/DENIS AP/OTHR RT COMPARISON: None available RESULT: Bone mineralization appears normal. Right shoulder: The glenohumeral joint appears normally aligned with preserved joint space and small marginal osteophytes. The acromioclavicular joint demonstrates mild hypertrophic osteoarthrosis. Soft tissues appear within normal limits. IMPRESSION: 1. Mild osteoarthrosis of the right shoulder Accounts Payable Processor: [facility] Transcribe Date/Time: Aug 16 2024 5:26P Dictated by : ANTHONY DILLON MD This examination was interpreted and the report reviewed and electronically signed by: ANTHONY DILLON MD on Aug 16 2024 5:27PM EST [id number] Normal [facility] CNOVon 06-23-2024 [facility] SIVAN TAM[facility]O ([id number]) 1970 M Date Time Provider Department 06/23/24 10:40 AM WES GATES During your visit today, we recorded the following information about you: Pulse Blood pressure Weight Height 84/minute 136/82 127 kg 1.829 m Wes Gates MD 06/23/2024 11:34 AM Signed Patient presents with: 6 Month Exam HPI: Patient presents today for office visit for follow up. DM: Does not check his sugars. Does not watch his diet. Plays pickleball for exercise. Having blurred vision that comes and goes. Left eye constantly watering and feels goopy X 6 months. Seeing ophthalmology on 07/06/24. No unexpected weight loss. Since starting Yasmani has gained weight. Makes him feel hungry. Some polydipsia. Mostly at night. Some polyuria. No foot lesions. Admits to numbness in his toes. Comes and goes Would like to discuss alternative to Glimepiride. Discussed risks and benefits of meds. Discussed importance of getting better control before we ever get rid of that. Was given advice that this medication may not be the best for mcc use. HLD: No myalgias. Follows with Cardiology. Latest Ref Rng 06/19/2024 WBC 3.70 - 11.00 k/uL 4.60 RBC 4.20 - 6.00 m/uL 5.21 Hemoglobin 13.0 - 17.0 g/dL 15.1 Hematocrit 39.0 - 51.0 % 46.1 MCV 80.0 - 100.0 fL 88.5 MCH 26.0 - 34.0 pg 29.0 MCHC 30.5 - 36.0 g/dL 32.8 RDW-CV 11.5 - 15.0 % 13.2 Platelet Count 150 - 400 k/uL 200 MPV 9.0 - 12.7 fL 9.6 Neut% % 54.2 Abs Neut (ANC) 1.45 - 7.50 k/uL 2.49 Lymph% % 32.4 Abs Lymph 1.00 - 4.00 k/uL 1.49 Teton% % 9.3 Abs [place] <0.87 k/uL 0.43 Eosin% % 3.5 Abs Eosin <0.46 k/uL 0.16 Baso% % 0.4 Abs Baso <0.11 k/uL <0.03 Immature Gran % % 0.2 IMMATURE GRANS (ABS) <0.10 k/uL <0.03 NRBC /100 WBC 0.0 Absolute nRBC <0.01 k/uL <0.01 DTYPE Auto Protein, Total 6.3 - 8.0 g/dL 7.4 Albumin 3.9 - 4.9 g/dL 4.3 Calcium 8.5 - 10.2 mg/dL 8.9 Bilirubin, Total 0.2 - 1.3 mg/dL 0.5 Alkaline Phosphatase 38 - 113 U/L 93 AST 14 - 40 U/L 19 ALT 10 - 54 U/L 24 Glucose 74 - 99 mg/dL 158 (H) BUN 9 - 24 mg/dL 13 Creatinine 0.73 - 1.22 mg/dL 0.80 Sodium 136 - 144 mmol/L 138 Potassium 3.7 - 5.1 mmol/L 4.4 Chloride 98 - 107 mmol/L 105 CO2 22 - 30 mmol/L 22 Anion Gap 8 - 15 mmol/L 11 eGFR >=60 mL/min/1.73m? 106 Cholesterol, Total <200 mg/dL 123 Triglyceride <150 mg/dL 134 HDL Cholesterol >39 mg/dL 36 (L) Non HDL Cholesterol <130 mg/dL 87 Fasting Time hrs 12 VLDL Cholesterol <30 mg/dL 27 TC:HDL Ratio <5.10 3.42 LDL Cholesterol <100 mg/dL 60 LDL:HDL Ratio <2.54 1.67 Creatinine, Ur Random (UCRR) 20.0 - 300.0 mg/dL 180.3 Albumin, Urine Random mg/L <12.0 Albumin/Creat Ratio <30 mg/g <7 Hemoglobin A1C 4.3 - 5.6 % 7.7 (H) Estimated Average Glucose mg/dL 174 MEDICATIONS: Current Outpatient Medications Medication Sig dulaglutide (TRULICITY) 0.75 mg/0.5 mL pen injector Inject 0.75 mg subcutaneously one time a week. Inject dose once per week. Discard Pen After blood sugar diagnostic (BLOOD GLUCOSE TEST) test strip Test blood sugar(s) 1 times daily. Dx: Type 2 DM - Uncontrolled E11.65 Insulin: No isosorbide mononitrate ER (IMDUR) 30 mg 24 hr tablet Take 1 tablet by mouth once daily. clopidogrel (PLAVIX) 75 mg tablet Take 1 tablet by mouth once daily. glimepiride (AMARYL) 2 mg tablet Take 1 tablet by mouth daily with breakfast. pioglitazone (ACTOS) 30 mg tablet Take 1 tablet by mouth once daily. TRUE METRIX GLUCOSE METER as directed. atorvastatin (LIPITOR) 80 mg tablet Take 1 tablet by mouth daily at bedtime. Lancets lancets Test blood sugar(s) 1 times daily. Dx: Type 2 DM - Uncontrolled E11.65 Insulin: No aspirin 81 mg chewable tablet Take 1 tablet by mouth once daily. No current facility-administered medications for this visit. 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 REPAIR NASAL SEPTUM PERFORATN devation REPAIR UMBILICAL HERNIA 01/08/2016 FAMILY HISTORY Problem Relation Age of Onset Diabetes Mother Lung Cancer Mother Amblyopia Father other (gastric CA) Father Diabetes Brother Cataract Brother Coronary Artery Disease Brother Large AMI at age 39 Social History Tobacco Use Smoking status: Never Smokeless tobacco: Never Vap (more content not included)... Normal [facility] ALBUMIN/CREATININE RATIO, UR INEon 06-19-2024 Albumin DL <= 20 mg/L (U) [Mass/Vol] mg/dL Normal [facility] Comment on above: Order Comment: Speci men Type: URINE SPECIMENOrdering Facility: [facility] Address: [address] [place] [address] [place] [address] Performed By: #### U ACR ####[facility] LABCLIA [id number] [place] [address] [place] Albumin/Creatinine (U) [Mass ratio] <7 Normal <30 [facility] Comment on above: Order Comment: Speci men Type: URINE SPECIMENOrdering Facility: [facility] Address: [address] [place] [address] Result Comment: Adul t Male and Female Nephrotic Criteria: <30 mg/g is considered normal to mildly increased 30-300 mg/g is considered moderately increased >300 mg/g is considered severely increased KDIGO. (2013). KDIGO 2012 Clinical Practice Guideline for the Evaluation and Management of Chronic Kidney Disease. Official Journal of the International Society of Nephrology, 3(1), 1-150. Performed By: #### U ACR ####[facility] LABCLIA [id number] [place] [address] [place] Creatinine (U) [Mass/Vol] 180.3 mg/dL Normal 20.0-300.0 [facility] Comment on above: Order Comment: Speci men Type: URINE SPECIMENOrdering Facility: [facility] Address: [address] [place] [address] Performed By: #### U ACR ####[facility] LABCLIA [id number] [place] [address] [place] CBC W Auto Differential pane l (Bld)on 06-19-2024 Basophils (Bld) [#/Vol] 10*3/uL Normal <0.11 [facility] Comment on above: Order Comment: Speci men Type: BLOOD SPECIMENOrdering Facility: [facility] Address: [address] [place] [address] Performed By: #### 5 7021-8 ####[facility] LABCLIA [id number] [place] [address] [place] Basophils/100 WBC (Bld) 0.4 % Normal [facility] Comment on above: Order Comment: Speci men Type: BLOOD SPECIMENOrdering Facility: [facility] Address: [address] [place] [address] Performed By: #### 5 7021-8 ####[facility] LABCLIA [id number] [place] [address] [place] Differential cell count method Nom (Bld) Auto Normal [facility] Comment on above: Order Comment: Speci men Type: BLOOD SPECIMENOrdering Facility: [facility] Address: [address] [place] [address] Performed By: #### 5 7021-8 ####[facility] LABCLIA [id number] [place] [address] [place] Eosinophils (Bld) [#/Vol] 0.16 10*3/uL Normal <0.46 [facility] Comment on above: Order Comment: Speci men Type: BLOOD SPECIMENOrdering Facility: [facility] Address: [address] [place] [address] Performed By: #### 5 7021-8 ####[facility] LABCLIA [id number] [place] [address] [place] Eosinophils/100 WBC (Bld) 3.5 % Normal [facility] Comment on above: Order Comment: Speci men Type: BLOOD SPECIMENOrdering Facility: [facility] Address: [address] [place] [address] Performed By: #### 5 7021-8 ####[facility] LABCLIA [id number] [place] [address] [place] Erythrocyte distribution width (RBC) [Ratio] 13.2 % Normal 11.5-15.0 [facility] Comment on above: Order Comment: Speci men Type: BLOOD SPECIMENOrdering Facility: [facility] Address: [address] [place] [address] Performed By: #### 5 7021-8 ####[facility] LABCLIA [id number] [place] [address] [place] Hematocrit (Bld) [Volume fraction] 46.1 % Normal 39.0-51.0 [facility] Comment on above: Order Comment: Speci men Type: BLOOD SPECIMENOrdering Facility: [facility] Address: [address] [place] [address] Performed By: #### 5 7021-8 ####[facility] LABCLIA [id number] [place] [address] [place] Hemoglobin (Bld) [Mass/Vol] 15.1 g/dL Normal 13.0-17.0 [facility] Comment on above: Order Comment: Speci men Type: BLOOD SPECIMENOrdering Facility: [facility] Address: [address] [place] [address] Performed By: #### 5 7021-8 ####[facility] LABCLIA [id number] [place] [address] [place] Immature granulocytes (Bld) [#/Vol] 10*3/uL Normal <0.10 [facility] Comment on above: Order Comment: Speci men Type: BLOOD SPECIMENOrdering Facility: [facility] Address: [address] [place] [address] Performed By: #### 5 7021-8 ####[facility] LABCLIA [id number] [place] [address] [place] Immature granulocytes/100 WBC (Bld) 0.2 % Normal [facility] Comment on above: Order Comment: Speci men Type: BLOOD SPECIMENOrdering Facility: [facility] Address: [address] [place] [address] Performed By: #### 5 7021-8 ####[facility] LABCLIA [id number] [place] [address] [place] Lymphocytes (Bld) [#/Vol] 1.49 10*3/uL Normal 1.00-4.00 [facility] Comment on above: Order Comment: Speci men Type: BLOOD SPECIMENOrdering Facility: [facility] Address: [address] [place] [address] Performed By: #### 5 7021-8 ####[facility] LABIA [id number] [place] [address] [place] Lymphocytes/100 WBC (Bld) 32.4 % Normal [facility] Comment on above: Order Comment: Speci men Type: BLOOD SPECIMENOrdering Facility: [facility] Address: [address] [place] [address] Performed By: #### 5 7021-8 ####[facility] LABIA [id number] [place] [address] [place] MCH (RBC) [Entitic mass] 29.0 pg Normal 26.0-34.0 [facility] Comment on above: Order Comment: Speci men Type: BLOOD SPECIMENOrdering Facility: [facility] Address: [address] [place] [address] Performed By: #### 5 7021-8 ####[facility] LABIA [id number] [place] [address] [place] MCHC (RBC) [Mass/Vol] 32.8 g/dL Normal 30.5-36.0 [facility] Comment on above: Order Comment: Speci men Type: BLOOD SPECIMENOrdering Facility: [facility] Address: [address] [place] [address] Performed By: #### 5 7021-8 ####[facility] LABIA [id number] [place] [address] [place] MCV (RBC) [Entitic vol] 88.5 fL Normal 80.0-100.0 [facility] Comment on above: Order Comment: Speci men Type: BLOOD SPECIMENOrdering Facility: [facility] Address: [address] [place] [address] Performed By: #### 5 7021-8 ####[facility] LABCLIA [id number] [place] [address] [place] Monocytes (Bld) [#/Vol] 0.43 10*3/uL Normal <0.87 [facility] Comment on above: Order Comment: Speci men Type: BLOOD SPECIMENOrdering Facility: [facility] Address: [address] [place] [address] Performed By: #### 5 7021-8 ####[facility] LABCLIA [id number] [place] [address] [place] Monocytes/100 WBC (Bld) 9.3 % Normal [facility] Comment on above: Order Comment: Speci men Type: BLOOD SPECIMENOrdering Facility: [facility] Address: [address] [place] [address] Performed By: #### 5 7021-8 ####[facility] LABCLIA [id number] [place] [address] [place] Neutrophils (Bld) [#/Vol] 2.49 10*3/uL Normal 1.45-7.50 [facility] Comment on above: Order Comment: Speci men Type: BLOOD SPECIMENOrdering Facility: [facility] Address: [address] [place] [address] Performed By: #### 5 7021-8 ####[facility] LABCLIA [id number] [place] [address] [place] Neutrophils/100 WBC (Bld) 54.2 % Normal [facility] Comment on above: Order Comment: Speci men Type: BLOOD SPECIMENOrdering Facility: [facility] Address: [address] [place] [address] Performed By: #### 5 7021-8 ####[facility] LABCLIA [id number] [place] [address] [place] Nucleated RBC (Bld) [#/Vol] 10*3/uL Normal <0.01 [facility] Comment on above: Order Comment: Speci men Type: BLOOD SPECIMENOrdering Facility: [facility] Address: [address] [place] [address] Performed By: #### 5 7021-8 ####[facility] LABCLIA [id number] [place] [address] [place] Nucleated RBC/100 WBC (Bld) [Ratio] 0.0 /100 WBC Normal [facility] Comment on above: Order Comment: Speci men Type: BLOOD SPECIMENOrdering Facility: [facility] Address: [address] [place] [address] Performed By: #### 5 7021-8 ####[facility] LABCLIA [id number] [place] [address] [place] Platelet mean volume (Bld) [Entitic vol] 9.6 fL Normal 9.0-12.7 [facility] Comment on above: Order Comment: Speci men Type: BLOOD SPECIMENOrdering Facility: [facility] Address: [address] [place] [address] Performed By: #### 5 7021-8 ####[facility] LABCLIA [id number] [place] [address] [place] Platelets (Bld) [#/Vol] 200 10*3/uL Normal 150-400 [facility] Comment on above: Order Comment: Speci men Type: BLOOD SPECIMENOrdering Facility: [facility] Address: [address] [place] [address] Performed By: #### 5 7021-8 ####[facility] LABCLIA [id number] [place] [address] [place] RBC (Bld) [#/Vol] 5.21 10*6/uL Normal 4.20-6.00 [facility] Comment on above: Order Comment: Speci men Type: BLOOD SPECIMENOrdering Facility: [facility] Address: [address] [place] [address] Performed By: #### 5 7021-8 ####[facility] LABCLIA [id number] [address] [address] [place] WBC (Bld) [#/Vol] 4.60 10*3/uL Normal 3.70-11.00 [facility] Comment on above: Order Comment: Speci men Type: BLOOD SPECIMENOrdering Facility: [facility] Address: [address] [place] [address] Performed By: #### 5 7021-8 ####[facility] LABCLIA [id number] [place] [id number] [place] [facility] Comprehensive metabolic 2000 panelon 06-19-2024 Albumin [Mass/Vol] 4.3 g/dL Normal 3.9-4.9 [facility] Comment on above: Order Comment: Speci men Type: BLOOD SPECIMENOrdering Facility: [facility] Address: [address] [place] [address] Performed By: #### 2 4331-1, 63351-3 ####[facility] LABIA [id number] [place] [id number] [place] ALP [Catalytic activity/Vol] 93 U/L Normal 38-113 [facility] Comment on above: Order Comment: Speci men Type: BLOOD SPECIMENOrdering Facility: [facility] Address: [address] [place] [address] Performed By: #### 2 4331-1, 20009-0 ####[facility] LABCLIA [id number] [place] [id number] [place] ALT [Catalytic activity/Vol] 24 U/L Normal 10-54 [facility] Comment on above: Order Comment: Speci men Type: BLOOD SPECIMENOrdering Facility: [facility] Address: [address] [place] [address] Performed By: #### 2 4331-1, 45444-7 ####[facility] LABCLIA [id number] [place] [id number] [place] Anion gap [Moles/Vol] 11 mmol/L Normal 8-15 [facility] Comment on above: Order Comment: Speci men Type: BLOOD SPECIMENOrdering Facility: [facility] Address: [address] [place] [address] Performed By: #### 2 4331-1, ####[facility] LABCLIA [id number] [place] [address] [place] AST [Catalytic activity/Vol] 19 U/L Normal 14-40 [facility] Comment on above: Order Comment: Speci men Type: BLOOD SPECIMENOrdering Facility: [facility] Address: [address] [place] [address] Performed By: #### 2 4331-1, ####[facility] LABCLIA [id number] [place] [address] [place] Bilirubin [Mass/Vol] 0.5 mg/dL Normal 0.2-1.3 [facility] Comment on above: Order Comment: Speci men Type: BLOOD SPECIMENOrdering Facility: [facility] Address: [address] [place] [address] Performed By: #### 2 4331-1, ####[facility] LABCLIA [id number] [place] [address] [place] Calcium [Mass/Vol] 8.9 mg/dL Normal 8.5-10.2 [facility] Comment on above: Order Comment: Speci men Type: BLOOD SPECIMENOrdering Facility: [facility] Address: [address] [place] [address] Performed By: #### 2 4331-1, ####[facility] LABCLIA [id number] [place] [address] [place] Chloride [Moles/Vol] 105 mmol/L Normal 98-107 [facility] Comment on above: Order Comment: Speci men Type: BLOOD SPECIMENOrdering Facility: [facility] Address: [address] [place] [address] Performed By: #### 2 4331-1, 78580-2 ####[facility] LABCLIA [id number] [place] [address] [place] CO2 [Moles/Vol] 22 mmol/L Normal 22-30 [facility] Comment on above: Order Comment: Speci men Type: BLOOD SPECIMENOrdering Facility: [facility] Address: [address] [place] [address] Performed By: #### 2 4331-1, 81281-4 ####[facility] LABCLIA [id number] [place] [address] [place] Creatinine [Mass/Vol] 0.80 mg/dL Normal 0.73-1.22 [facility] Comment on above: Order Comment: Speci men Type: BLOOD SPECIMENOrdering Facility: [facility] Address: [address] [place] [address] Performed By: #### 2 4331-1, 05208-4 ####[facility] LABCLIA [id number] [place] [address] [place] Creatinine and Glomerular filtration rate.predicted panel (S/P/Bld) 106 mL/min/1.73m??? Normal >=60 [facility] Comment on above: Order Comment: Speci men Type: BLOOD SPECIMENOrdering Facility: [facility] Address: [address] [place] [address] Result Comment: Liana mated Glomerular Filtration Rate (eGFR) is calculated using the 2020 CKD-EPI creatinine equation. This equation utilizes serum creatinine, sex, and age as parameters. The creatinine assay has traceable calibration to isotope dilution-mass spectrometry. Refer to KDIGO guidelines for clinical interpretation. In patients with unstable renal function, e.g. those with acute kidney injury, the eGFR may not accurately reflect actual GFR. Performed By: #### 2 4331-1, 76555-4 ####[facility] LABCLIA [id number] [place] [address] [place] Glucose [Mass/Vol] 158 mg/dL High 74-99 [facility] Comment on above: Order Comment: Speci men Type: BLOOD SPECIMENOrdering Facility: [facility] Address: [address] [place] [address] Result Comment: The [place] Diabetes Association (ADA) provides guidance for cutoff values for fasting glucose and random glucose. The ADA defines fasting as no caloric intake for at least 8 hours. Fasting plasma glucose results between 100 to 125 mg/dL indicate increased risk for diabetes (prediabetes). Fasting plasma glucose results greater than or equal to 126 mg/dL meet the criteria for diagnosis of diabetes. In the absence of unequivocal hyperglycemia, results should be confirmed by repeat testing. In a patient with classic symptoms of hyperglycemia or hyperglycemic crisis, random plasma glucose results greater than or equal to 200 mg/dL meet the criteria for diagnosis of diabetes. Reference: Standards of Medical Care in Diabetes 2016, [place] Diabetes Association. Diabetes Care. 2016.39(Suppl 1). Performed By: #### 2 4331-1, 54669-5 ####[facility] LABCLIA [id number] [place] [address] [place] Potassium [Moles/Vol] 4.4 mmol/L Normal 3.7-5.1 [facility] Comment on above: Order Comment: Speci men Type: BLOOD SPECIMENOrdering Facility: [facility] Address: [address] [place] [address] Performed By: #### 2 4331-1, 55598-5 ####[facility] LABCLIA [id number] [place] [address] [place] Protein [Mass/Vol] 7.4 g/dL Normal 6.3-8.0 [facility] Comment on above: Order Comment: Speci men Type: BLOOD SPECIMENOrdering Facility: [facility] Address: [address] [place] [address] Performed By: #### 2 4331-, 20872-0 ####[facility] LABCLIA [id number] [place] [address] [place] Sodium [Moles/Vol] 138 mmol/L Normal 136-144 [facility] Comment on above: Order Comment: Shellie ortega Type: BLOOD SPECIMENOrdering Facility: [facility] Address: [address] [place] [address] Performed By: #### 2 4331-1, 92602-5 ####[facility] [id number] [place] [address] [place] Urea nitrogen [Mass/Vol] 13 mg/dL Normal 9-24 [facility] Comment on above: Order Comment: Shellie men Type: BLOOD SPECIMENOrdering Facility: [facility] Address: [address] [place] [address] Performed By: #### 2 4331-1, 07868-4 ####[facility] [id number] [place] [address] [place] HbA1c (Bld)on 06-19-2024 Average glucose Estimated from glycated hemoglobin (Bld) [Mass/Vol] 174 mg/dL Normal [facility] Comment on above: Order Comment: Shellie ortega Type: BLOOD SPECIMENOrdering Facility: [facility] Address: [address] [place] [address] Result Comment: eAG: (Estimated average glucose) is a calculated value from HgbA1c and is car sales representative of the average blood glucose level in the last 2-3 month period. Performed By: #### 5 5454-3 ####[facility] [id number] [place] [address] [place] HbA1c (Bld) [Mass fraction] 7.7 % High 4.3-5.6 [facility] Comment on above: Order Comment: Shellie ortega Type: BLOOD SPECIMENOrdering Facility: [facility] Address: [address] [place] [address] Result Comment: [place] Diabetes Association guidelines indicate that patients with HgbA1c in the range 5.7-6.4% are at increased risk for development of diabetes, and intervention by lifestyle modification may be beneficial. HgbA1c greater or equal to 6.5% is considered diagnostic of diabetes. Performed By: #### 5 5454-3 ####[facility] LABCLIA [id number] [place] [address] [place] Lipid 1996 panelon 5 Cholesterol [Mass/Vol] 123 mg/dL Normal <200 [facility] Comment on above: Order Comment: Speci men Type: BLOOD SPECIMENOrdering Facility: [facility] Address: [address] [place] [address] Result Comment: <200 mg/dL, Desirable 200-239 mg/dL, Borderline high >239 mg/dL, High Performed By: #### 2 4331-1, 59007-7 ####[facility] LABCLIA [id number] [address] [place] Cholesterol in HDL [Mass/Vol] 36 mg/dL Low >39 [facility] Comment on above: Order Comment: Shellie ortega Type: BLOOD SPECIMENOrdering Facility: [facility] Address: [address] [place] [address] Result Comment: 40-5 9 mg/dL, Acceptable >59 mg/dL, High: Negative risk factor for coronary heart disease <40 mg/dL, Low: Positive risk factor for coronary heart disease Performed By: #### 2 4331-1, 54424-3 ####[facility] LABCLIA [id number] [address] [place] Cholesterol in LDL [Mass/Vol] 60 mg/dL Normal <100 [facility] Comment on above: Order Comment: Shellie men Type: BLOOD SPECIMENOrdering Facility: [facility] Address: [address] [place] [address] Result Comment: <100 mg/dL, Optimal 100-129 mg/dL, Near optimal/above optimal 130-159 mg/dL, Borderline high 160-189 mg/dL, High >189 mg/dL, Very high Secondary prevention optimal LDL Cholesterol levels are recommended to be < 70 mg/dL Performed By: #### 2 4331-1, 04625-9 ####[facility] LABCLIA [id number] [place] [address] [place] Cholesterol in LDL/Cholesterol in HDL [Mass ratio] 1.67 {ratio} Normal <2.54 [facility] Comment on above: Order Comment: Speci men Type: BLOOD SPECIMENOrdering Facility: [facility] Address: [address] [place] [address] Result Comment: Refe rence: 1. National Cholesterol Education Program ATP III Guideline At-A-Glance Quick Desk Reference: National Heart, Lung, [facility] [place]. National Institutes of Health. 2001: NIH Publication No. 01-3305. 2. An International Atherosclerosis Society position paper: global recommendations for the management of dyslipidemia: executive summary, Atherosclerosis. 2014: 232(2):410-413. Performed By: #### 2 4331-, 23910-8 ####[facility] LABCLIA [id number] [place] [address] [place] Cholesterol in VLDL [Mass/Vol] 27 mg/dL Normal <30 [facility] Comment on above: Order Comment: Speci men Type: BLOOD SPECIMENOrdering Facility: [facility] Address: [address] [place] [address] Performed By: #### 2 4331-, 81088-5 ####[facility] LABCLIA [id number] [place] [address] [place] Cholesterol non HDL [Mass/Vol] 87 mg/dL Normal <130 [facility] Comment on above: Order Comment: Speci men Type: BLOOD SPECIMENOrdering Facility: [facility] Address: [address] [place] [address] Result Comment: <130 mg/dL, Optimal 130-159 mg/dL, Near optimal/above optimal 160-189 mg/dL, Borderline high 190-219 mg/dL, High >219 mg/dL, Very high Secondary prevention optimal non HDL Cholesterol levels are recommended to be <100 mg/dL Performed By: #### 2 4331-1, ####[facility] LABCLIA [id number] [place] [address] [place] Cholesterol.total/Cho lesterol in HDL [Mass ratio] 3.42 {ratio} Normal <5.10 [facility] Comment on above: Order Comment: Speci men Type: BLOOD SPECIMENOrdering Facility: [facility] Address: [address] [place] [address] Performed By: #### 2 4331-1, ####[facility] LABIA [id number] [place] [address] [place] FASTING TIME 12 hrs Normal [facility] Comment on above: Order Comment: Speci men Type: BLOOD SPECIMENOrdering Facility: [facility] Address: [address] [place] [address] Performed By: #### 2 4331-1, ####[facility] LABIA [id number] [place] [address] [place] Triglyceride [Mass/Vol] 134 mg/dL Normal <150 [facility] Comment on above: Order Comment: Speci men Type: BLOOD SPECIMENOrdering Facility: [facility] Address: [address] [place] [address] Result Comment: <150 mg/dL, Normal 150-199 mg/dL, Borderline high 200-499 mg/dL, High >499 mg/dL, Very high Performed By: #### 2 4331-1, ####[facility] LABIA [id number] [place] [address] [place] CNOVon 02-17-2024 CNOV Office Visit ([facility] ) SIVAN TAMAYO ([id number]) 1970 M Date Time Provider Department 02/17/24 10:00 AM JOVANNA DUNLAP During your visit today, we recorded the following information about you: Pulse Blood pressure Weight Height 76/minute 154/82 123.5 kg 1.829 m Jovanna Dunlap DO 02/17/2024 10:36 AM Signed [facility] Mariah Torres Department of Cardiovascular Medicine SECTION OF [facility] OUTPATIENT VISIT DATE February 17, 2024 OUTPATIENT VISIT TYPE ESTABLISHED PATIENT Name: Sivan Tamayo : 1970 Date: February 17, 2024 PRIMARY CARE PHYSICIAN: Wes Gates [address] [place] [address] REFERRING PHYSICIAN: Haile Pollock [address] [facility] [address] CHIEF COMPLAINT: Patient presents with: Cardiology Follow Up : Stopped Imdur at last visit - still fatigued, intermittent SOB while sitting. IMPRESSION / PLAN: 1. Coronary artery disease status post stent placement to RCA/PDA, PLV, OM1 and diagonal branch on April 27, 2023. Patient is doing very well with no evidence of anginal symptoms and does have occasional atypical chest pains which is noncardiac. I will plan on stress testing approximately April 2024. Patient will continue to his exercise protocol and if any evidence of recurrent anginal symptoms. Will continue aspirin and Plavix for at least another 6 months and perhaps even longer depending his tolerance. Does have some tendency of getting nosebleeds particularly when he takes ibuprofen. 2. Hyperlipidemia. Patient is tolerating atorvastatin 80 mg daily with excellent LDL at goal. 3. History of ADD. Patient was taken off his ADD medications after his findings of coronary artery disease but has had some definite mental issues and forgetfulness that are concerning. I feel that he is cleared to resume his ADD medication at this point and will discuss with his family physician. 4. Diabetes mellitus. Patient does have significant elevations in his blood sugars but he appears to not do well with even blood sugars in the 130s and has hypoglycemic symptoms. He is to discuss with Dr. Whitehead consider endocrinology consultation. Follow Up Instructions Return in about 6 months (around 08/16/2024). ORDERS FOR TODAY'S VISIT: Office Visit on 02/17/24 isosorbide mononitrate ER (IMDUR) 30 mg 24 hr tablet HISTORY OF PRESENT ILLNESS: Sivan Tamayo is an 53 year old male with a past history of coronary artery disease status post multivessel stenting in April 2023 after presenting to [facility] with chest pain and subsequent findings with diagnostic cardiac catheterization and underwent stent placement at [facility]. He presents today for follow-up with his . He has no evidence of recurrent anginal symptoms which he does know, but has had some atypical left-sided chest pain/cramping. Is also had some difficulties with memory loss since he has been off his ADD medication. He denies any shortness of breath, syncope or near syncope or lower extremity edema. PAST MEDICAL HISTORY 08/28/2011: ADD (attention deficit disorder) No date: 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) No date: Diabetes ([facility]) 08/28/2011: Hypertension No date: Mixed hyperlipidemia No date: Obesity No date: S/P angioplasty with stent PAST SURGICAL HISTORY 06/07/2014: ARTHROSCOPY KNEE DIAGNOSTIC W/WO SYNOVIAL BX SPX; Left Comment: meniscus No date: OSTECTOMY CALCANEUS SPUR W/WO PLNTAR FASCIAL RLS; Left 04/27/2023: PCI/STENT Comment: [facility] 04/27/23 PCI x3 (diagonal, pda and plv1). No date: REPAIR NASAL SEPTUM PERFORATN Comment: devation 01/08/2016: REPAIR UMBILICAL HERNIA SOCIAL HISTORY Social History Tobacco Use Smoking status: Never Smokeless tobacco: Never Vaping Use Vaping status: Never Used Substance Use Topics Alcohol use: No Drug use: No FAMILY HISTORY Problem Relation Age of Onset Diabetes Mother Lung Cancer Mother Amblyopia Father other (gastric CA) Father Diabetes Brother Cataract Brother Coronary Artery Disease Brother Large AMI at age 39 ALLERGIES: ALLERGIES Allergen Reactions Amlodipine Other: See Comments Facial numbness MEDICATIONS: clopidogrel (PLAVIX) 75 mg tablet Take 1 tablet by mouth once daily. glimepiride (AMARYL) 2 mg tablet Take 1 tablet by mouth daily with breakfast. pioglitazone (ACTOS) 30 mg tablet Take 1 tablet by mouth once daily. TRUE METRIX GLUCOSE METER as directed. dulaglutide (TRULICITY) 0.75 mg/0.5 mL pen injector Inject 0.75 mg subcutaneously one time a week. Inject dose once per week. Discard Pen After atorvastatin (LIPITOR) 80 mg tablet Take 1 tablet by mouth daily at bed (more content not included)... Normal [facility] CNPNon 01-21-2024 CNPN Telephone (CHICHI) SIVAN TAMAYO ([id number]) 1970 M Date Time Provider Department 01/21/24 JOVANNA DUNLAP During your visit today, we recorded the following information about you: Preethi Jalloh 01/21/2024 8:39 AM Signed PT calling today for a sooner appointment, nothing available on provider and PATIENT CASE MANAGER schedules. PT placed on wait list. PT has been experiencing symptoms of what he felt before his surgery last year for heart blockages. PT is concerned he may have some blockages now. PT has been more winded, increased sweating, some dizziness. PT does not check BP at home. PT is requesting a return call to advise of symptoms at [phone] Shannen Moe RN 01/28/2024 2:21 PM Signed Spoke with pt. Symptoms started a couple months ago. Has only had CP twice. Happened the same day. Stated it was in his upper chest. Did not radiate. CP last a couple mins then went away. Has SOB with exertion (climbing a set of stairs). Started around the time he had his CP episode. Does not take BP/HR daily. Stated compliance with Plavix. Denied lightheadedness, dizziness. Advised pt if symptoms worsen, experience CP, SOB at rest, to go to the ER for evaluation. __ BRIDGETT: 08/12/[address] Dunlap 1. Coronary artery disease status post stent placement to RCA/PDA, PLV, OM1 and diagonal branch on April 27, 2023. Patient is doing very well with no evidence of anginal symptoms and does have occasional atypical chest pains which is noncardiac. I will plan on stress testing approximately April 2024. Patient will continue to his exercise protocol and if any evidence of recurrent anginal symptoms, which he does know, he will notify me. 2. Hyperlipidemia. Patient is tolerating atorvastatin 80 mg daily with excellent LDL at goal. NOV: 02/17/[address] Dunlap Allergies As of Date: 01/21/2024 Noted Allergy Reaction AMLODIPINE 04/24/2023 14 - Other: See Comments Comments: Facial numbness Date Reviewed: 08/12/2023 Reviewed by: Ayah Izquierdo MA - Fully Assessed Reason for Visit: Patient Update [1234] Prescriptions as of 01/28/2024 - glimepiride (AMARYL) 2 mg tablet Take 1 tablet by mouth daily with breakfast. - pioglitazone (ACTOS) 30 mg tablet Take 1 tablet by mouth once daily. - TRUE METRIX GLUCOSE METER as directed. - dulaglutide (TRULICITY) 0.75 mg/0.5 mL pen injector Inject 0.75 mg subcutaneously one time a week. Inject dose once per week. Discard Pen After - metoprolol succinate ER (TOPROL XL) 25 mg 24 hr tablet Take 1 tablet by mouth daily at bedtime. - atorvastatin (LIPITOR) 80 mg tablet Take 1 tablet by mouth daily at bedtime. - clopidogrel (PLAVIX) 75 mg tablet Take 1 tablet by mouth once daily. - blood sugar diagnostic (BLOOD GLUCOSE TEST) test strip Test blood sugar(s) 1 times daily. Dx: Type 2 DM - Uncontrolled E11.65 Insulin: No - Lancets lancets Test blood sugar(s) 1 times daily. Dx: Type 2 DM - Uncontrolled E11.65 Insulin: No - aspirin 81 mg chewable tablet Take 1 tablet by mouth once daily. Problem List As Of Date 01/21/2024 Noted Resolved ADD (attention deficit disorder) [F98.8] 08/28/2011 Essential hypertension [I10] 08/28/2011 Type 2 diabetes mellitus without complication, *12/26/2015 Mild intermittent asthma without complication [*12/26/2015 Special screening for malignant neoplasm of col*02/25/2023 Exertional chest pain [R07.9] 04/23/2023 05/10/2023 Obesity (BMI 30-39.9) [E66.9] 04/23/2023 Allergic reaction [T78.40XA] 04/24/2023 Obesity, Class II, BMI 35-39.9 [E66.9] 04/26/2023 Coronary artery disease involving chicken ranch stratton*04/27/2023 Mixed hyperlipidemia [E78.2] 04/27/2023 S/P angioplasty with stent [Z95.820] 05/10/2023 Obesity, Class I, BMI 30-34.9 [E66.9] 05/11/2023 Encounter Status:Closed by PREETHI JALLOH on 01/28/24 Normal [facility] ALBUMIN/CREAT RATIO RND URon 05-10-2023 Albumin DL <= 20 mg/L (U) [Mass/Vol] [facility] Albumin/Creatinine (U) [Mass ratio] <30 mg/g [facility] Creatinine (U) [Mass/Vol] 135.1 mg/dL 20.0 - 300.0 mg/dL [facility] CBC W Auto Differential pane l (Bld)on 05-10-2023 Basophils (Bld) [#/Vol] <0.11 k/uL [facility] Basophils/100 WBC (Bld) 0.4 % [facility] Differential cell count method Nom (Bld) Auto [facility] Eosinophils (Bld) [#/Vol] 0.18 10*3/uL <0.46 k/uL [facility] Eosinophils/100 WBC (Bld) 3.5 % [facility] Erythrocyte distribution width (RBC) [Ratio] 12.4 % 11.5 - 15.0 % [facility] Hematocrit (Bld) [Volume fraction] 42.4 % 39.0 - 51.0 % [facility] Hemoglobin (Bld) [Mass/Vol] 14.1 g/dL 13.0 - 17.0 g/dL [facility] Immature granulocytes (Bld) [#/Vol] <0.10 k/uL [facility] Immature granulocytes/100 WBC (Bld) 0.2 % [facility] Lymphocytes (Bld) [#/Vol] 1.38 10*3/uL 1.00 - 4.00 k/uL [facility] Lymphocytes/100 WBC (Bld) 26.7 % [facility] MCH (RBC) [Entitic mass] 29.0 pg 26.0 - 34.0 pg [facility] MCHC (RBC) [Mass/Vol] 33.3 g/dL 30.5 - 36.0 g/dL [facility] MCV (RBC) [Entitic vol] 87.2 fL 80.0 - 100.0 fL [facility] Monocytes (Bld) [#/Vol] 0.43 10*3/uL <0.87 k/uL [facility] Monocytes/100 WBC (Bld) 8.3 % [facility] Neutrophils (Bld) [#/Vol] 3.14 10*3/uL 1.45 - 7.50 k/uL [facility] Neutrophils/100 WBC (Bld) 60.9 % [facility] Nucleated RBC (Bld) [#/Vol] <0.01 k/uL [facility] Nucleated RBC/100 WBC (Bld) [Ratio] 0.0 /100 WBC [facility] Platelet mean volume (Bld) [Entitic vol] 9.6 fL 9.0 - 12.7 fL [facility] Platelets (Bld) [#/Vol] 205 10*3/uL 150 - 400 k/uL [facility] RBC (Bld) [#/Vol] 4.86 10*6/uL 4.20 - 6.0 0 m/uL [facility] WBC (Bld) [#/Vol] 5.16 10*3/uL 3.70 - 11. 00 k/uL [facility] Basic metabolic 2000 panelon 04-29-2023 Anion gap [Moles/Vol] 11 mmol/L Normal 9-18 [facility] Comment on above: Order Comment: Speci men Type: BLOOD SPECIMEN Ordering Facility: [facility] Address: [address] [place] [address] Performed By: #### 2 4321-2 #### [facility] CLIA [id number] [address] [place] [address] [place] Calcium [Mass/Vol] 8.9 mg/dL Normal 8.5-10.2 [facility] Comment on above: Order Comment: Speci men Type: BLOOD SPECIMEN Ordering Facility: [facility] Address: [address] [place] [address] Performed By: #### 2 4321-2 #### [facility] CLIA [id number] [address] [place] [address] [place] Chloride [Moles/Vol] 100 mmol/L Normal 97-105 [facility] Comment on above: Order Comment: Speci men Type: BLOOD SPECIMEN Ordering Facility: [facility] Address: [address] [place] [address] Performed By: #### 2 4321-2 #### [facility] CLIA [id number] [address] [place] [address] [place] CO2 [Moles/Vol] 24 mmol/L Normal 22-30 [facility] Comment on above: Order Comment: Speci men Type: BLOOD SPECIMEN Ordering Facility: [facility] Address: [address] [place] [address] Performed By: #### 2 4321-2 #### [facility] CLIA [id number] [address] [place] [address] [place] Creatinine [Mass/Vol] 0.72 mg/dL Low 0.73-1.22 [facility] Comment on above: Order Comment: Speci men Type: BLOOD SPECIMEN Ordering Facility: [facility] Address: [address] [place] [address] Performed By: #### 2 4321-2 #### [facility] CLIA [id number] [address] [place] [address] [place] Creatinine and Glomerular filtration rate.predicted panel (S/P/Bld) 111 mL/min/1.73m??? Normal >=60 [facility] Comment on above: Order Comment: Speci men Type: BLOOD SPECIMEN Ordering Facility: [facility] Address: [address] [place] [address] Result Comment: Liana mated Glomerular Filtration Rate (eGFR) is calculated using the 2020 CKD-EPI creatinine equation. This equation utilizes serum creatinine, sex, and age as parameters. The creatinine assay has traceable calibration to isotope dilution-mass spectrometry. Refer to KDIGO guidelines for clinical interpretation. In patients with unstable renal function, e.g. those with acute kidney injury, the eGFR may not accurately reflect actual GFR. Performed By: #### 2 4321-2 #### [facility] CLIA [id number] [address] [place] [address] [place] Glucose [Mass/Vol] 178 mg/dL High 74-99 [facility] Comment on above: Order Comment: Shellie ortega Type: BLOOD SPECIMEN Ordering Facility: [facility] Address: [address] [place] [address] Result Comment: The [place] Diabetes Association (ADA) provides guidance for cutoff values for fasting glucose and random glucose. The ADA defines fasting as no caloric intake for at least 8 hours. Fasting plasma glucose results between 100 to 125 mg/dL indicate increased risk for diabetes (prediabetes). Fasting plasma glucose results greater than or equal to 126 mg/dL meet the criteria for diagnosis of diabetes. In the absence of unequivocal hyperglycemia, results should be confirmed by repeat testing. In a patient with classic symptoms of hyperglycemia or hyperglycemic crisis, random plasma glucose results greater than or equal to 200 mg/dL meet the criteria for diagnosis of diabetes. Reference: Standards of Medical Care in Diabetes 2016, [place] Diabetes Association. Diabetes Care. 2016.39(Suppl 1). Performed By: #### 2 4321-2 #### [facility] CLIA [id number] [address] [place] [address] [place] Potassium [Moles/Vol] 4.4 mmol/L Normal 3.7-5.1 [facility] Comment on above: Order Comment: Shellie ortega Type: BLOOD SPECIMEN Ordering Facility: [facility] Address: [address] [place] [address] Performed By: #### 2 4321-2 #### [facility] CLIA [id number] [place] [address] [place] Sodium [Moles/Vol] 135 mmol/L Low 136-144 [facility] Comment on above: Order Comment: Shellie ortega Type: BLOOD SPECIMEN Ordering Facility: [facility] Address: [address] [place] [address] Performed By: #### 2 4321-2 #### [facility] CLIA [id number] [address] [place] [id number] [place] Urea nitrogen [Mass/Vol] 13 mg/dL Normal 9-24 [facility] Comment on above: Order Comment: Speci men Type: BLOOD SPECIMEN Ordering Facility: [facility] Address: [address] [place] [address] Performed By: #### 2 4321-2 #### [facility] CLIA [id number] [place] [address] [place] CBC panel Auto (Bld)on 04-29 Erythrocyte distribution width (RBC) [Ratio] 12.2 % Normal 11.5-15.0 [facility] Comment on above: Order Comment: Speci men Type: BLOOD SPECIMENOrdering Facility: [facility] Address: [address] [place] [address] Performed By: #### 5 8410-2 ####[facility] [id number] [address] [place] Hematocrit (Bld) [Volume fraction] 43.9 % Normal 39.0-51.0 [facility] Comment on above: Order Comment: Speci men Type: BLOOD SPECIMENOrdering Facility: [facility] Address: [address] [place] [address] Performed By: #### 5 8410-2 ####[facility] [id number] [place] [id number] [place] Hemoglobin (Bld) [Mass/Vol] 15.0 g/dL Normal 13.0-17.0 [facility] Comment on above: Order Comment: Speci men Type: BLOOD SPECIMENOrdering Facility: [facility] Address: [address] [place] [address] Performed By: #### 5 8410-2 ####[facility] [id number] [place] [address] [place] MCH (RBC) [Entitic mass] 29.1 pg Normal 26.0-34.0 [facility] Comment on above: Order Comment: Speci men Type: BLOOD SPECIMENOrdering Facility: [facility] Address: [address] [place] [address] Performed By: #### 5 8410-2 ####[facility] [id number] [place] [address] [place] MCHC (RBC) [Mass/Vol] 34.2 g/dL Normal 30.5-36.0 [facility] Comment on above: Order Comment: Speci men Type: BLOOD SPECIMENOrdering Facility: [facility] Address: [address] [place] [address] Performed By: #### 5 8410-2 ####[facility] [id number] [place] [address] [place] MCV (RBC) [Entitic vol] 85.2 fL Normal 80.0-100.0 [facility] Comment on above: Order Comment: Speci men Type: BLOOD SPECIMENOrdering Facility: [facility] Address: [address] [place] [address] Performed By: #### 5 8410-2 ####[facility] [id number] [place] [address] [place] Nucleated RBC (Bld) [#/Vol] 10*3/uL Normal <0.01 [facility] Comment on above: Order Comment: Speci men Type: BLOOD SPECIMENOrdering Facility: [facility] Address: [address] [place] [address] Performed By: #### 5 8410-2 ####[facility] [id number] [address] [place] Platelet mean volume (Bld) [Entitic vol] 9.3 fL Normal 9.0-12.7 [facility] Comment on above: Order Comment: Speci men Type: BLOOD SPECIMENOrdering Facility: [facility] Address: [address] [place] [address] Performed By: #### 5 8410-2 ####[facility] [id number] [place] [address] [place] Platelets (Bld) [#/Vol] 207 10*3/uL Normal 150-400 [facility] Comment on above: Order Comment: Speci men Type: BLOOD SPECIMENOrdering Facility: [facility] Address: [address] [place] [address] Performed By: #### 5 8410-2 ####[facility] [id number] [place] [id number] [place] RBC (Bld) [#/Vol] 5.15 10*6/uL Normal 4.20-6.00 [facility] Comment on above: Order Comment: Speci men Type: BLOOD SPECIMENOrdering Facility: [facility] Address: [address] [place] [address] Performed By: #### 5 8410-2 ####[facility] [id number] [place] [address] [place] WBC (Bld) [#/Vol] 7.99 10*3/uL Normal 3.70-11.00 [facility] Comment on above: Order Comment: Speci men Type: BLOOD SPECIMENOrdering Facility: [facility] Address: [address] [place] [address] Performed By: #### 5 8410-2 ####[facility] [id number] [place] [id number] [facility] [place] CNDSon 04-29-2023 CNDS HNO ID: [id number] Author: Krish Urias MD Service: Hospital Medicine Author Type: Physician Type: Discharge Summary Filed: 04/29/2023 6:33 PM Note Text: DISCHARGE SUMMARY PATIENT NAME: Sivan Tamayo ADMISSION DATE: 04/27/2023 DISCHARGE DATE: 04/29/2023 ATTENDING PHYSICIAN: Krish Urias MD Code Status: Prior Highest Readmission Risk Score: 9 The 30 day readmissions risk score is derived from an internally validated risk model which evaluates patient level characteristics, utilization history, medication orders and lab results up until the day of discharge. Patients with a score of 40 or above are considered highest risk for readmission. Specific patient level drivers will be listed at the bottom of the summary. CONSULTING TEAMS DURING HOSPITALIZATION: cardiology Treatment Team: Attending Provider: Krish Urias MD Primary Service: , [facility] REASON FOR HOSPITALIZATION: chest pain, intermittent, with CAD on LHC at [facility] DIAGNOSIS: Principal Problem: 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) (POA: Yes) Active Problems: ADD (attention deficit disorder) (POA: Yes) Essential hypertension (POA: Yes) Type 2 diabetes mellitus without complication, without long-term current use of insulin (HCC) (POA: Yes) Obesity, Class II, BMI 35-39.9 (POA: Yes) Mixed hyperlipidemia (POA: Yes) Resolved Problems: * No resolved hospital problems. * OPERATIONS DURING HOSPITALIZATION: None PROCEDURES DURING HOSPITALIZATION: stent of pda, plv1, om1, and diagonal 1 HOSPITAL COURSE: This is a 53 year old male with past medical history of adult ADD, hypertension, hyperlipidemia, obesity (BMI 35), diabetes mellitus type 2, poorly controlled. who presented to [facility] for CP. Troponins were negative. EKG nonischemic. He had a nuclear stress test on 04/26/2023 showing mild ischemia in the RCA territory and otherwise a low risk scan. Patient had echo today showing EF 58%, mild MR. He had left heart cath today by Dr. Dunlap and was found to have 99% circumflex distal stenosis and a 95% distal stenosis of the RCA. Recommendation was to transfer patient to a facility capable of placing stents. Pt. Was admitted to [facility], had a LHC on 04/28/[address] Pollock , with Successful stent of pda, plv1, om1, and diagonal 1 - now on aspirin 81 mg p.o. daily, atorvastatin 80 , metoprolol 12.5 mg bid, Imdur 30 mg. And plavix . Pt. Today is feeling good , no CP no SOB. BG still uncontrolled ,pt. To discuss further management with his PCP. Follow up with Dr. Pollock in 1 to [address] Dunlap in 3 to 4 weeks PATIENT CONDITION AT DISCHARGE: Stable DISCHARGE DISPOSITION: Home with Self Care Discharge Physical Exam: VITAL SIGNS: BP 113/67 Pulse 69 Temp 37.1 ?C (98.8 ?F) (Oral) Resp 19 Wt 112.4 kg (247 lb 12.8 oz) SpO2 97% BMI 34.56 kg/m? GENERAL: Alert, no distress, cooperative NECK: No jugulovenous distention, No carotid bruits, Carotid pulse normal contour, Supple LUNGS: Lungs clear to auscultation, Good diaphragmatic excursion CARDIAC: Normal S1 and S2; no rubs, murmurs, or gallops ABDOMEN: Abdomen soft, non-tender, BS normal, No masses or organomegaly EXTREMITIES: Extremities normal, no deformities, edema, clubbing or skin discoloration. Good capillary refill., No ulcers PULSES: 2+ radial, 2+ carotid INFORMATION PROVIDED TO PATIENT: discharge instructions DIET: Resume pre-hospital diet ACTIVITY: Resume pre-hospital activity ALLERGIES Allergen Reactions Amlodipine Other: See Comments Facial numbness DISCHARGE MEDICATION: Medication List START taking these medications aspirin 81 mg chewable tablet Take 1 tablet by mouth once daily. clopidogrel 75 mg tablet Commonly known as: PLAVIX Take 1 tablet by mouth once daily. famotidine 20 mg tablet Commonly known as: PEPCID Take 1 tablet by mouth two times a day. isosorbide mononitrate ER 30 mg 24 hr tablet Commonly known as: IMDUR Take 1 tablet by mouth once daily. metoprolol succinate ER 25 mg 24 hr tablet Commonly known as: TOPROL XL Take 1 tablet by mouth daily at bedtime. CHANGE how you take these medications atorvastatin 80 mg tablet Commonly known as: LIPITOR Take 1 tablet by mouth daily at bedtime. What changed: medication strength how much to take additional instructions CONTINUE taking these medications glimepiride 2 mg tablet Commonly known as: AmaryL Take 1 tablet by mouth daily with breakfast. pioglitazone 15 mg tablet Commonly known as: ACTOS Take 1 tablet by mouth once daily. STOP taking these medications Amphetamine-Dextroamph etamine 30 mg tablet Commonly known as: AdderalL ASHWAGANDHA EXTRACT ORAL Where to Get Your Medications These medications were sent to [email or web address] [address] [place] [id number] - [address] - [phone] [address] (more content not included)... [facility] 04-29-2023 [facility] Telephone (FVPRAD) SIVAN TAMAYO ([id number]) 1970 M Date Time Provider Department 04/29/23 ANNELIESE GIBBS During your visit today, we recorded the following information about you: Anneliese Gibbs APRN.[facility] 04/29/2023 11:25 AM Signed Please arrange for follow up with Dr. Pollock in 1-2 weeks, he is s/p heart cath w/ stents. Thank you! Allergies As of Date: 04/29/2023 Noted Allergy Reaction AMLODIPINE 04/24/2023 14 - Other: See Comments Comments: Facial numbness Date Reviewed: 04/29/2023 Reviewed by: Kem Correia, KAN - Fully Assessed Reason for Visit: Appointment [186] Prescriptions as of 04/30/2023 - metoprolol succinate ER (TOPROL XL) 25 mg 24 hr tablet Take 1 tablet by mouth daily at bedtime. - atorvastatin (LIPITOR) 80 mg tablet Take 1 tablet by mouth daily at bedtime. - aspirin 81 mg chewable tablet Take 1 tablet by mouth once daily. - clopidogrel (PLAVIX) 75 mg tablet Take 1 tablet by mouth once daily. - famotidine (PEPCID) 20 mg tablet Take 1 tablet by mouth two times a day. - isosorbide mononitrate ER (IMDUR) 30 mg 24 hr tablet Take 1 tablet by mouth once daily. - glimepiride (AMARYL) 2 mg tablet Take 1 tablet by mouth daily with breakfast. - pioglitazone (ACTOS) 15 mg tablet Take 1 tablet by mouth once daily. Problem List As Of Date 04/29/2023 Noted Resolved ADD (attention deficit disorder) [F98.8] 08/28/2011 Essential hypertension [I10] 08/28/2011 Type 2 diabetes mellitus without complication, *12/26/2015 Mild intermittent asthma without complication [*12/26/2015 Special screening for malignant neoplasm of col*02/25/2023 Exertional chest pain [R07.9] 04/23/2023 Obesity (BMI 30-39.9) [E66.9] 04/23/2023 Allergic reaction [T78.40XA] 04/24/2023 Obesity, Class II, BMI 35-39.9 [E66.9] 04/26/2023 Coronary artery disease involving chicken ranch stratton*04/27/2023 Mixed hyperlipidemia [E78.2] 04/27/2023 Encounter Status:Closed by SWAPNIL GUERRATERESO on 04/30/23 [facility] CONSULT PROGon 04-29-2023 CONSULT PROG HNO ID: [id number] Author: Lobito Brennan MD Service: Cardiovascular Medicine Author Type: Physician Type: Consult Progress Note Filed: 04/29/2023 5:41 PM Note Text: [facility] PROGRESS NOTE Sivan Tamayo [id number] PRIMARY SERVICE: Internal Medicine SUBJECTIVE: INTERVAL HISTORY: s/p PCI/KENTON PDA, PLV1, and Diagonal #1 w/ Dr/ Nukta yesterday. No acute events overnight, awake and alert on exam, visiting at the bedside. He has no complaints, eager to go home. PERTINENT REVIEW OF SYSTEMS: See HPI: Remaining ROS reviewed and negative OBJECTIVE: MEDICATIONS: Current Facility-Administered Medications Medication Dose Route Frequency pioglitazone 15 mg tab(s) (ACTOS) 15 mg ORAL DAILY NaCl 0.9% iv flush bag 20 mL INTRAVENOUS PRN ondansetron 4 mg tab(s) (ZOFRAN) 4 mg ORAL q 6 H PRN Or ondansetron (PF) 4 mg injection (ZOFRAN) 4 mg INTRAVENOUS q 6 H PRN acetaminophen 650 mg tab(s) (TYLENOL) 650 mg ORAL q 6 H PRN aspirin 81 mg chewable tab(s) 81 mg ORAL DAILY isosorbide mononitrate ER 30 mg tab(s) (IMDUR) 30 mg ORAL DAILY metoprolol tartrate (short acting) 12.5 mg tab(s) (LOPRESSOR) 12.5 mg ORAL q 12 H melatonin 3 mg tab(s) 3 mg ORAL DAILY (8 PM) dextrose 40 % 15 g 15 g ORAL PRN Or glucagon 1 mg injection 1 mg INTRAMUSCULAR PRN Or dextrose 10% iv bolus 12.5 g INTRAVENOUS PRN insulin lispro injection (rapid acting) (ADMElog) SUBCUTANEOUS w MEALS AND HS famotidine 20 mg tab(s) (PEPCID) 20 mg ORAL BID atorvastatin 80 mg tab(s) (LIPITOR) 80 mg ORAL AT BEDTIME clopidogrel 75 mg tab(s) (PLAVIX) 75 mg ORAL DAILY NaCl 0.9% iv infusion 75 mL/hr INTRAVENOUS CONTINUOUS PHYSICAL EXAM: 04/28/23 1924 04/29/23 0001 04/29/23 0417 04/29/23 0704 BP: 147/80 120/73 116/76 113/66 Pulse: 71 70 67 70 Resp: 16 18 16 18 Temp: 36.5 ?C (97.7 ?F) 36.9 ?C (98.4 ?F) 37 ?C (98.6 ?F) 36.5 ?C (97.7 ?F) TempSrc: Oral Oral Oral Oral SpO2: 96% 98% 95% 98% Weight: 112.4 kg (247 lb 12.8 oz) General: Well developed and well nourished appearance. No acute distress. Skin: No rash on chest, arms or legs. Warm, dry. Head/Eyes: PERRLA Mouth/Pharynx: Teeth: Fair dentition. No lesions. Neck: No JVD. Supple. Lungs: Normal respiratory effort. Clear lungs without rhonchi, rales, wheezing. Heart: Regular rhythm. Abdomen: Soft abdomen, nontender, normal bowel sounds. Musculoskeletal: No kyphoscoliosis. No joint deformities. Extremities: No clubbing or cyanosis. No edema. Warm digits. Neurologic/Psychiatric : Oriented to person, place, time. Normal affect. No gross focal neurologic deficits. Intake/Output Summary (Last 24 hours) at 04/29/2023 1058 Last data filed at 04/29/2023 0800 Gross per 24 hour Intake 240 ml Output 900 ml Net -660 ml TELEMETRY: DATA: Laboratory: Recent Labs 04/29/23 0634 04/28/23 0704 WBC 7.99 6.06 HB 15.0 14.6 HCT 43.9 43.5 PLT 207 188 NA 135* 135* K 4.4 4.4 CHLOR 100 102 CO2 24 23 BUN 13 15 CREAT 0.72* 0.76 GLUC 178* 170* ASSESSMENT AND PLAN: 1.) CAD s/p PCI/KENTON PDA, PLV1, and Diagonal #1: - Telemetry reviewed, demonstrates NSR, occasional PVC's, normotensive. - Right radial and right groin sites assessed, radial site CRYSTAL, no evidence of bleeding, oozing, ecchymosis, or sign of infection present. Right groin dressing CDI, surrounding area without evidence of bleeding, oozing, ecchymosis, or sign of infection present. - Reviewed wound care and activity restrictions, written information to be provided in DC summary. - All new medications and changes made to previous medications discussed, prescriptions sent to preferred pharmacy. - antiplatelet: asa 81 mg daily, clopidogrel 75 mg daily. - BB: metoprolol succinate 25 mg HS. - Nitrate: isosorbide mononitrate ER 30 mg daily. - statin: atorvastatin 80 mg HS. - discussed importance of lifestyle changes and cardiac rehab. - Will request for post-op follow up with Dr. Pollock in 1-2 weeks. Case discussed with Dr. Brennan SIGNATURE: Anneliese Gibbs APRN.CNP DATE of SERVICE: 04/29/2023 TIME of SERVICE: 10:58 AM [facility] STAFF PHYSICIAN NOTE OF PERSONAL INVOLVEMENT IN CARE IMPRESSION AND PLAN: patient seen with BULL GANG SUPERVISOR, note as per above (reviewed and edited) I have reviewed the documentation obtained and documented by the Nurse Practitioner and I have personally performed the substantive portion of the visit which includes the medical decision making. I have reviewed and updated the problem list as appropriate. I have discussed the case and management of the patient's care. STAFF PHYSICIAN: Lobito Brennan MD DATE OF SERVICE: April 29, 2023 TIME OF SERVICE: 5:40 PM [facility] ECG COMPLETEon 04-29-2023 ECG COMPLETE Ventricular Rate : 7 4 BPM Atrial Rate : 74 BPM P-R Interval : 182 ms QRS Duration : 99 ms Q-T Interval : 365 ms QTC Calculation(Bazett) : 405 ms Calculated P [place] : 41 degrees Calculated R [place] : -33 degrees Calculated T [place] : 23 degrees Sinus rhythm Multiform ventricular premature complexes Confirmed by KEVIN MADDEN MD ([id number]) on 04/29/2023 8:51:45 PM NAME : SIVAN TAMAYO PID : [id number] : 1970 Gender : Male Race : ORD : [id number] Procedure Date : Apr 29 2023 09:00:28 Edit Date : Apr 29 2023 20:51:49 Diagnosis: Sinus rhythm Multiform ventricular premature complexes Confirmed by KEVIN MADDEN MD ([id number]) on 04/29/2023 8:51:45 PM Test Reason : Post-OP Location : 400 : FVEKG PK2A Overread By : KEVIN MADDEN MD Edited By : KEVIN MADDEN MD Referred By : JOVANNA DUNLAP Acquired by : SAM JENKINS [facility] NURSING PROGon 04-29-2023 NURSING PROG HNO ID: [id number] Author: Kem Correia RN Service: Nursing Author Type: Registered Nurse Type: Nursing Progress Note Filed: 04/29/2023 2:08 PM Note Text: Daily note: Patient resting in room during day, denied any new pain or discomfort, vitals stable. AVS reviewed with patient and spouse at 1345, aware of f/u appointments, aware of general discharge instructions, and aware of new meds and medication changes. Patient meds sent to preferred pharmacy and will pick them up on 04/30 as they are currently closed. All belongings returned at time of discharge, patient escorted out of room at 1406 via wheelchair. Normal [facility] Basic metabolic 2000 panelon 04-28-2023 Anion gap [Moles/Vol] 10 mmol/L Normal 9-18 [facility] Comment on above: Order Comment: Speci men Type: BLOOD SPECIMENOrdering Facility: [facility] Address: [address] [place] [address] Performed By: #### 2 4320-07, , HSTNT ####[facility]ORY[facility]IA [id number] [place] [id number] [place] Calcium [Mass/Vol] 8.9 mg/dL Normal 8.5-10.2 [facility] Comment on above: Order Comment: Speci men Type: BLOOD SPECIMENOrdering Facility: [facility] Address: [address] [place] [address] Performed By: #### 2 4320-07, , HSTNT ####[facility]ORYCLIA [id number] [place] [id number] [place] Chloride [Moles/Vol] 102 mmol/L Normal 97-105 [facility] Comment on above: Order Comment: Speci men Type: BLOOD SPECIMENOrdering Facility: [facility] Address: [address] [place] [address] Performed By: #### 2 4321-2, , HSTNT ####[facility]ORYCLIA [id number] [place] [id number] [place] CO2 [Moles/Vol] 23 mmol/L Normal 22-30 [facility] Comment on above: Order Comment: Speci men Type: BLOOD SPECIMENOrdering Facility: [facility] Address: [address] [place] [address] Performed By: #### 2 432-2, , HSTNT ####[facility]ATORYCLIA [id number] [place] [id number] [place] Creatinine [Mass/Vol] 0.76 mg/dL Normal 0.73-1.22 [facility] Comment on above: Order Comment: Speci men Type: BLOOD SPECIMENOrdering Facility: [facility] Address: [address] [place] [address] Performed By: #### 2 2, , HSTNT ####[facility]ORATORYCLIA [id number] [place] [id number] [place] Creatinine and Glomerular filtration rate.predicted panel (S/P/Bld) 109 mL/min/1.73m??? Normal >=60 [facility] Comment on above: Order Comment: Speci men Type: BLOOD SPECIMENOrdering Facility: [facility] Address: [address] [place] [address] Result Comment: Liana mated Glomerular Filtration Rate (eGFR) is calculated using the 2020 CKD-EPI creatinine equation. This equation utilizes serum creatinine, sex, and age as parameters. The creatinine assay has traceable calibration to isotope dilution-mass spectrometry. Refer to KDIGO guidelines for clinical interpretation. In patients with unstable renal function, e.g. those with acute kidney injury, the eGFR may not accurately reflect actual GFR. Performed By: #### 2 4321-2, , HSTNT ####[facility]ATORYCLIA [id number] [place] [id number] [place] Glucose [Mass/Vol] 170 mg/dL High 74-99 [facility] Comment on above: Order Comment: Shellie shannon Type: BLOOD SPECIMENOrdering Facility: [facility] Address: [address] [place] [address] Result Comment: The [place] Diabetes Association (ADA) provides guidance for cutoff values for fasting glucose and random glucose. The ADA defines fasting as no caloric intake for at least 8 hours. Fasting plasma glucose results between 100 to 125 mg/dL indicate increased risk for diabetes (prediabetes). Fasting plasma glucose results greater than or equal to 126 mg/dL meet the criteria for diagnosis of diabetes. In the absence of unequivocal hyperglycemia, results should be confirmed by repeat testing. In a patient with classic symptoms of hyperglycemia or hyperglycemic crisis, random plasma glucose results greater than or equal to 200 mg/dL meet the criteria for diagnosis of diabetes. Reference: Standards of Medical Care in Diabetes 2016, [place] Diabetes Association. Diabetes Care. 2016.39(Suppl 1). Performed By: #### 2 4321-2, , HSTNT ####[facility]ATORYCLIA [id number] [place] [address] [place] Potassium [Moles/Vol] 4.4 mmol/L Normal 3.7-5.1 [facility] Comment on above: Order Comment: Shellie shannon Type: BLOOD SPECIMENOrdering Facility: [facility] Address: [address] [place] [address] Performed By: #### 2 4321-2, , HSTNT ####[facility]ATORYCLIA [id number] [place] [id number] [place] Sodium [Moles/Vol] 135 mmol/L Low 136-144 [facility] Comment on above: Order Comment: Shellie shannon Type: BLOOD SPECIMENOrdering Facility: [facility] Address: [address] [place] [address] Performed By: #### 2 4320-2, , HSTNT ####[facility]ATORYCLIA [id number] [place] [id number] [place] Urea nitrogen [Mass/Vol] 15 mg/dL Normal 9-24 [facility] Comment on above: Order Comment: Speci men Type: BLOOD SPECIMENOrdering Facility: [facility] Address: [place] [address] Performed By: #### 2 4321-2, 90033-7, [facility] ####[facility]ORATORYCLIA [id number] [address] OF [facility] CARD CATH INTERVENTon 2022 CARD CATH INTERVENT Site Id: YOSELYN Mcclelland #: Study Date: 04/28/2023 Start Time: End Time: + + PATIENT INFORMATION + + Name: MR. SIVAN TAMAYO : 1970 Age: 53 years Gender: M Height: 71 in / 180 cm Weight: 251.32 lb / 114.00 kg BMI: 35.19 kg/m BSA: 2.32 m + -------+ CLINICAL HISTORY/INDICATIONS + -------+ Unstable angina. Procedural Status: Elective CAD Presentation: Unstable Angina Angina Classification (within 2 weeks): No Angina Anti-Angina Meds (within 2 weeks): No. No Heart Failure No Cardiomyopathy - No LV Dysfunction Pre-Op Evaluation before Non-Card Surg: No Cardiogenic Shock: No Cardiac Arrest: No Clinical History: unstable angina from valdez. + + PCI SUMMARY + + Procedures Performed: Patient had a complex lesion in the PDA and posterior lateral branch of the RCA distal lesion at the bifurcation lesion I wired both os lesions. I predilated both of them. Then I did a modified mini crush technique I deliver stent 3.5 x [address] 1 and 3 x 28 into distal RCA to PDA. Then I recrossed and I did kissing balloon for both stents. Both stents were fully deployed. Procedural Details: Anticoagulation: Tirofiban and Clopidogrel Additional Procedural Medications: Clopidogrel 75mg PO Procedure Narrative: Lesion 1: RCA Posterior Descending. Lesion 2: RCA 1st Posterolateral. Lesion 3: LCX-1st Obtuse Marginal Guide 3: 6FR XB 3.5. Lesion 4: LAD-1st diagonal branch Guide 4: 6FR XB 3.5. Procedure Summary: Patient had a complex lesion in the PDA and posterior lateral branch of the RCA distal lesion at the bifurcation lesion I wired both os lesions. I predilated both of them. Then I did a modified mini crush technique I deliver stent 3.5 x [address] and 3 x 28 into distal RCA to PDA. Then I recrossed and I did kissing balloon for both stents. Both stents were fully deployed. +----+ PLAN +----+ Aspirin 81mg/day indefinitely, Clopidogrel 75mg/day for at least one year Disposition: Overnight Observation + + HEMODYNAMICS - XPER + + + +---+ ---+-------+----+----- -+------+ Measurement Name Sys Philly End Philly Mean A Wave V Wave + +---+ ---+-------+----+----- -+------+ Oximetry: +----+ +-- +---+--+ Site O2 Saturation O2 PO2 HB +----+ +-- +---+--+ + + ADVERSE OUTCOME(s)/COMPLICATIO N(s) + + None + ---------+ PROCEDURAL & TECHNICAL DETAILS + ---------+ + + Description (Procedure) + + Balloon Angioplasty + + IVUS (Intervention) Each Add'l Vessel + + IVUS (Intervention) Each Add'l Vessel + + complex pci chip procedure, stent to pda, plv1, om1, and cutting balloon d1. ivus pda, plv1, om1 and diagonal1 + + Radiation: Procedure performed under Fluoroscopic Guidance Total Dose 3334.86 mGy Dose Area Product 0.04 Gy*m Total Exposure Time 3029.28 sec *ADVERSE OUTCOME(s)/COMPLICATIO N(s)* None Recommended Treatment: Images: *MEDICAL HISTORY* CAD Presentation: Unstable Angina Angina Classification (within 2 weeks): No Angina Anti-Angina Meds (within 2 weeks): No. No Heart Failure No Cardiomyopathy - No LV Dysfunction Pre-Op Evaluation before Non-Card Surg: No Cardiogenic Shock: No Cardiac Arrest: No Family History of CAD: No Congenital Heart Disease: No Coronary Artery Disease: No Dyslipidemia: No Hypertension: No Myocarditis: No Pericarditis: No Syncope: No Arrhythmia: None Diabetes Mellitus: No Chronic Lung Disease: No Hostile Chest: No Immunocompromised: No Myocardial Infarction: No Creatinine > 2: No Dialysis: Currently not on dialysis STEMI or Non STEMI Onset Date/Time: / STEMI Thrombolytic: No Date/Time: / STEMI Reason for Delay: Left Ventricle EF: No Relevent EF within 6 Months. LVEF at Discharge: Endocarditis: No Procedure Details: Blood Loss: < 30ml Specimen: No Specimen Obtained Recent PCI Failure of Treated Vessel: Contrast: Radiation: Procedure performed under Fluoroscopic Guidance Total Dose 3334.86 mGy Dose Area Product 0.04 Gy*m Total Exposure Time 3029.28 sec Baseline: HGB: Creatinine: Glucose: INR: Conscious Sedation Summary: Moderate (more content not included)... Normal [facility] CBC W Auto Differential pane l (Bld)on 04-28-2023 Basophils (Bld) [#/Vol] 0.03 10*3/uL Normal <0.11 [facility] Comment on above: Order Comment: Speci men Type: BLOOD SPECIMEN [facility] Address: [address] [place] [address] Performed By: #### 5 7021-8 #### [facility] CLIA [id number] [address] [place] [address] [place] Basophils/100 WBC (Bld) 0.5 % Normal [facility] Comment on above: Order Comment: Speci men Type: BLOOD SPECIMEN [facility] Address: [address] [place] [address] Performed By: #### 5 7021-8 #### [facility] CLIA [id number] [address] [place] [address] [place] Differential cell count method Nom (Bld) Auto Normal [facility] Comment on above: Order Comment: Speci men Type: BLOOD SPECIMEN [facility] Address: [address] [place] [address] Performed By: #### 5 7021-8 #### [facility] CLIA [id number] [address] [place] [address] [place] Eosinophils (Bld) [#/Vol] 0.17 10*3/uL Normal <0.46 [facility] Comment on above: Order Comment: Speci men Type: BLOOD SPECIMEN [facility] Address: [address] [place] [address] Performed By: #### 5 7021-8 #### [facility] CLIA [id number] [address] [place] [address] [place] Eosinophils/100 WBC (Bld) 2.8 % Normal [facility] Comment on above: Order Comment: Speci men Type: BLOOD SPECIMEN [facility] Address: [address] [place] [address] Performed By: #### 5 7021-8 #### [facility] CLIA [id number] [address] [place] [address] [place] Erythrocyte distribution width (RBC) [Ratio] 12.4 % Normal 11.5-15.0 [facility] Comment on above: Order Comment: Speci men Type: BLOOD SPECIMEN [facility]: [facility] Address: [address] [place] [address] Performed By: #### 5 7021-8 #### [facility] CLIA [id number] [address] [place] [address] [place] Hematocrit (Bld) [Volume fraction] 43.5 % Normal 39.0-51.0 [facility] Comment on above: Order Comment: Speci men Type: BLOOD SPECIMEN [facility] Address: [address] [place] [address] Performed By: #### 5 7021-8 #### [facility] CLIA [id number] [address] [place] [address] [place] Hemoglobin (Bld) [Mass/Vol] 14.6 g/dL Normal 13.0-17.0 [facility] Comment on above: Order Comment: Speci men Type: BLOOD SPECIMEN [facility] Address: [address] [place] [address] Performed By: #### 5 7021-8 #### [facility] CLIA [id number] [address] [place] [address] [place] Immature granulocytes (Bld) [#/Vol] 10*3/uL Normal <0.10 [facility] Comment on above: Order Comment: Speci men Type: BLOOD SPECIMEN [facility] Address: [address] [place] [address] Performed By: #### 5 7021-8 #### [facility] CLIA [id number] [address] [place] [address] [place] Immature granulocytes/100 WBC (Bld) 0.3 % Normal [facility] Comment on above: Order Comment: Speci men Type: BLOOD SPECIMEN [facility] Address: [address] [place] [address] Performed By: #### 5 7021-8 #### [facility] CLIA [id number] [address] [place] [address] [place] Lymphocytes (Bld) [#/Vol] 1.82 10*3/uL Normal 1.00-4.00 [facility] Comment on above: Order Comment: Speci men Type: BLOOD SPECIMEN [facility] Address: [address] [place] [address] Performed By: #### 5 7021-8 #### [facility] CLIA [id number] [address] [place] [address] [place] Lymphocytes/100 WBC (Bld) 30.0 % Normal [facility] Comment on above: Order Comment: Speci men Type: BLOOD SPECIMEN [facility] Address: [address] [place] [address] Performed By: #### 5 7021-8 #### [facility] CLIA [id number] [address] [place] [address] [place] MCH (RBC) [Entitic mass] 28.9 pg Normal 26.0-34.0 [facility] Comment on above: Order Comment: Speci men Type: BLOOD SPECIMEN [facility] Address: [address] [place] [address] Performed By: #### 5 7021-8 #### [facility] CLIA [id number] [address] [place] [address] [place] MCHC (RBC) [Mass/Vol] 33.6 g/dL Normal 30.5-36.0 [facility] Comment on above: Order Comment: Speci men Type: BLOOD SPECIMEN [facility] Address: [address] [place] [address] Performed By: #### 5 7021-8 #### [facility] CLIA [id number] [address] [place] [address] [place] MCV (RBC) [Entitic vol] 86.1 fL Normal 80.0-100.0 [facility] Comment on above: Order Comment: Speci men Type: BLOOD SPECIMEN [facility]: [facility] Address: [address] [place] [address] Performed By: #### 5 7021-8 #### [facility] CLIA [id number] [address] [place] [address] [place] Monocytes (Bld) [#/Vol] 0.65 10*3/uL Normal <0.87 [facility] Comment on above: Order Comment: Speci men Type: BLOOD SPECIMEN [facility]: [facility] Address: [address] [place] [address] Performed By: #### 5 7021-8 #### [facility] CLIA [id number] [address] [place] [address] [place] Monocytes/100 WBC (Bld) 10.7 % Normal [facility] Comment on above: Order Comment: Speci men Type: BLOOD SPECIMEN [facility]: [facility] Address: [address] [place] [address] Performed By: #### 5 7021-8 #### [facility] CLIA [id number] [address] [place] [address] [place] Neutrophils (Bld) [#/Vol] 3.37 10*3/uL Normal 1.45-7.50 [facility] Comment on above: Order Comment: Speci men Type: BLOOD SPECIMEN [facility]: [facility] Address: [address] [place] [address] Performed By: #### 5 7021-8 #### [facility] CLIA [id number] [address] [place] [address] [place] Neutrophils/100 WBC (Bld) 55.7 % Normal [facility] Comment on above: Order Comment: Speci men Type: BLOOD SPECIMEN [facility]: [facility] Address: [address] [place] [address] Performed By: #### 5 7021-8 #### [facility] CLIA [id number] [address] [place] [address] [place] Nucleated RBC (Bld) [#/Vol] 10*3/uL Normal <0.01 [facility] Comment on above: Order Comment: Speci men Type: BLOOD SPECIMEN [facility]: [facility] Address: [address] [place] [address] Performed By: #### 5 7021-8 #### [facility] CLIA [id number] [address] [place] [address] [place] Nucleated RBC/100 WBC (Bld) [Ratio] 0.0 /100 WBC Normal [facility] Comment on above: Order Comment: Speci men Type: BLOOD SPECIMEN [facility]ing Facility: [facility] Address: [address] [place] [address] Performed By: #### 5 7021-8 #### [facility] CLIA [id number] [address] [place] [address] [place] Platelet mean volume (Bld) [Entitic vol] 9.4 fL Normal 9.0-12.7 [facility] Comment on above: Order Comment: Speci men Type: BLOOD SPECIMEN [facility]ing Facility: [facility] Address: [address] [place] [address] Performed By: #### 5 7021-8 #### [facility] CLIA [id number] [address] [place] [address] [place] Platelets (Bld) [#/Vol] 188 10*3/uL Normal 150-400 [facility] Comment on above: Order Comment: Speci men Type: BLOOD SPECIMEN [facility] Address: [address] [place] [address] Performed By: #### 5 7021-8 #### [facility] CLIA [id number] [address] [place] [address] [place] RBC (Bld) [#/Vol] 5.05 10*6/uL Normal 4.20-6.00 [facility] Comment on above: Order Comment: Speci men Type: BLOOD SPECIMEN Ordering Facility: [facility] Address: [address] [place] [address] Performed By: #### 5 7021-8 #### [facility] CLIA [id number] [address] [place] [address] [place] WBC (Bld) [#/Vol] 6.06 10*3/uL Normal 3.70-11.00 [facility] Comment on above: Order Comment: Speci men Type: BLOOD SPECIMEN Ordering Facility: [facility] Address: [address] [place] [address] Performed By: #### 5 7021-8 #### [facility] CLIA [id number] [address] [place] [address] [place] ECG COMPLETEon 04-28-2023 ECG COMPLETE Ventricular Rate : 6 1 BPM Atrial Rate : 61 BPM P-R Interval : 186 ms QRS Duration : 98 ms Q-T Interval : 399 ms QTC Calculation(Bazett) : 402 ms Calculated P [place] : 36 degrees Calculated R [place] : 0 degrees Calculated T [place] : 64 degrees Sinus rhythm Ventricular premature complex Minimal ST elevation, consider inferior injury Abnormal ECG Confirmed by KEVIN MADDEN MD ([id number]) on 04/28/2023 11:25:41 PM NAME : SIVAN TAMAYO PID : [id number] : 1970 Gender : Male Race : ORD : [id number] Procedure Date : Apr 28 2023 15:39:19 Edit Date : Apr 28 2023 23:25:42 Diagnosis: Sinus rhythm Ventricular premature complex Minimal ST elevation, consider inferior injury Abnormal ECG Confirmed by KEVIN MADDEN MD ([id number]) on 04/28/2023 11:25:41 PM Test Reason : Chest Pain Location : 400 : [facility] 3P31 19 Overread By : KEVIN MADDEN MD Edited By : KEVIN MADDEN MD Referred By : JOVANNA DUNLAP Acquired by : JAIR NICOLE [facility] HIGH SENSITIVITY TROPONIN To n 04-28-2023 Troponin T.cardiac High sensitivity method [Mass/Vol] 7 ng/L Normal <12 [facility] Comment on above: Order Comment: Shellie ortega Type: BLOOD SPECIMENOrdering Facility: [facility] Address: [address] [place] [address] Result Comment: When assessing risk for acute coronary syndromes: In patients undergoing blood draw greater than or equal to 2 hours from symptom onset, with history of very low to moderate risk and non-ischemic ECG, an initial hs-Troponin T less than 12 ng/L AND a 1 hour delta hs-Troponin T less than 3 ng/L should be considered very low risk for 30 day MACE. Performed By: #### 2 4321-2, 66494-0, HSTNT ####[facility] [id number] [place] [address] [place] HbA1c (Bld)on 04-28-2023 Average glucose Estimated from glycated hemoglobin (Bld) [Mass/Vol] 180 mg/dL Normal [facility] Comment on above: Order Comment: Shellie ortega Type: BLOOD SPECIMEN Ordering Facility: [facility] Address: [address] [place] [address] Result Comment: eAG: (Estimated average glucose) is a calculated value from HgbA1c and is car sales representative of the average blood glucose level in the last 2-3 month period. Performed By: #### 5 5454-3 #### [facility] CLIA [id number] [address] [place] [address] [place] HbA1c (Bld) [Mass fraction] 7.9 % High 4.3-5.6 [facility] Comment on above: Order Comment: Speci men Type: BLOOD SPECIMEN Ordering Facility: [facility] Address: [address] [place] [address] Result Comment: Amer ican Diabetes Association guidelines indicate that patients with HgbA1c in the range 5.7-6.4% are at increased risk for development of diabetes, and intervention by lifestyle modification may be beneficial. HgbA1c greater or equal to 6.5% is considered diagnostic of diabetes. Performed By: #### 5 5454-3 #### [facility] CLIA [id number] [address] [place] [address] [place] Magnesium SerPl-mCncon 04-28 Magnesium [Mass/Vol] 1.9 mg/dL Normal 1.7-2.3 [facility] Comment on above: Order Comment: Speci men Type: BLOOD SPECIMENOrdering Facility: [facility] Address: [address] [place] [address] Performed By: #### 2 4321-2, 56245-5, HSTNT ####[facility] [id number] [place] [id number] [place] NURSING PROGon 04-28-2023 NURSING PROG HNO ID: [id number] Author: Meena Steinberg RN Service: Nursing Author Type: Registered Nurse Type: Nursing Progress Note Filed: 04/28/2023 4:27 PM Note Text: Transfer Note: PATIENT NAME: Sivan Tamayo Patient Location: [id number] Room: [id number] Patient transferred out to room/unit PK201 in stable condition. Actions taken: Report given/called to Meera OMER. Patient belongings with patient. [facility] NURSING PROG HNO ID: [id number] Author: Meena Steinberg RN Service: Nursing Author Type: Registered Nurse Type: Nursing Progress Note Filed: 04/28/2023 4:28 PM Note Text: Other: daily note See NPR and flowsheets for complete assessment and interventions. Call light within reach. Safety and tele maintained. Pt denies CP. NPO except meds. Agreeable with plan for likely stents today and overnight stay. 0845 - pt put on equipment operator/laborer/supervisor schedule for 1430. Ok for him to have breakfast per AM PATIENT CASE MANAGER. Han tray ordered. 0930 - pt finished breakfast. Aware of NPO status now. 1230 - pt off floor to equipment operator/laborer/supervisor. 1520 - Connected to monitor, assessed access site(s) w/ photo lab manager, released orders, oriented to room/call light/menu, limb/activity restrictions reviewed, frequent vitals and monitoring initiated. 1555 - called report to PK2 RNMeera. Will keep pt for his first hour post-procedure. 1615 - some ST elevation on tele and ECG, pt only complaining of slight chest discomfort. Reported to Dr. Pollock who wished for nursing to continue to monitor and no new orders received. Passed this along to PK2 KAN Estes via phone call. [facility] OPERATIVE NOon 04-28-2023 OPERATIVE NO HNO ID: [id number] Author: Haile Pollock MD Service: Cardiovascular Medicine Author Type: Physician Type: Operative Report Filed: 04/28/2023 3:03 PM Note Text: Detail report in cardiac tap of chart review. As the imaging report of syngo Successful stent of pda, plv1, om1, and diagonal 1 [facility] CASE MANAGEMon 04-27-2023 CASE MANAGEM HNO ID: [id number] Author: Jenna Resendiz RN Service: ? Author Type: Registered Nurse Type: Care Mgt Progress Note Filed: 04/27/2023 2:08 PM Note Text: CARE MANAGEMENT PROGRESS NOTE SERVICE DATE: 04/27/2023 SERVICE TIME: 12:10 PM LOS: 0 days Needs Prior to Discharge: Other: See Comment EMR reviewed. Patient s/p left heart catheterization today. Patient now awaiting transfer to [facility] or [facility] for cardiac intervention. CM will follow. 2:01 PM Contacted financial department regarding HCAP status. 2:07 PM Patient has qualified for 100% Fap until 07/20/2023 in referral [phone] per financial department. SIGNATURE: Jenna Resendiz RN PATIENT NAME: Sivan Tamayo DATE: April 27, 2023 TIME: 12:10 PM PAGER/CONTACT #: [phone] [facility] CNCOon 04-27-2023 CNCO Letter Text [facility] CNDSon 04-27-2023 CNDS HNO ID: [id number] Author: Galileo Reaves MD Service: Hospital Medicine Author Type: Physician Type: Discharge Summary Filed: 05/27/2023 6:58 AM Note Text: DISCHARGE SUMMARY PATIENT NAME: Sivan Tamayo Code Status: Prior Highest Readmission Risk Score: 7 The 30 day readmissions risk score is derived from an internally validated risk model which evaluates patient level characteristics, utilization history, medication orders and lab results up until the day of discharge. Patients with a score of 40 or above are considered highest risk for readmission. Specific patient level drivers will be listed at the bottom of the summary. Additional Provider to Provider Information: Sivan Tamayo is a 53 year old male presented with past medical history of ADD (attention deficit disorder) (08/28/2011), Diabetes (HCC), Hypertension (08/28/2011), and Obesity, who presents to [place] ER after two episodes of exertional chest pain and improved with rest. Risk factors of family hx of early CAD of brother at age 39, obesity, diabetes, dyslipidemia, HTN, use of Adderall for ADD (not in the last month or so), tobacco abuse with infrequently cigar use. Negative Troponin and NSR on EKG. seen by cardiology, started on aspirin, statin, metoprolol, imdur . possible allergic reaction after receiving norvasc. norvasc discontinued s/p stress test 04/26 which was abnormal. LHC 04/27 which showed 99% of Left cx marginal and 95% RCA stenosis Transferred [facility] Treatment Team: Consulting: Sussy Arana MD Transitions of Care Critical Issues: SPECIALIST FOLLOW-UP: cardiology LABS AND PROCEDURES PENDING AT DISCHARGE: No pending results. FOLLOW-UP APPOINTMENTS ALREADY SCHEDULED WITH A [facility] PROVIDER: Future Appointments Date Time Provider Department Center 07/13/2023 1:40 PM Wes Gates MD [facility] 08/12/2023 10:00 AM [facility] ALLERGIES Allergen Reactions Amlodipine Other: See Comments Facial numbness DISCHARGE MEDICATION: Medication List CONTINUE taking these medications glimepiride 2 mg tablet Commonly known as: AmaryL Take 1 tablet by mouth daily with breakfast. pioglitazone 15 mg tablet Commonly known as: ACTOS Take 1 tablet by mouth once daily. Discharge Physical Exam: VITAL SIGNS: BP 138/81 Pulse 72 Temp 36.9 ?C (98.4 ?F) (Oral) Resp 20 Wt 114.3 kg (252 lb) SpO2 97% BMI 35.15 kg/m? GENERAL: Alert, no distress, cooperative LUNGS: Lungs clear to auscultation, Good diaphragmatic excursion CARDIAC: Normal S1 and S2; no rubs, murmurs, or gallops ABDOMEN: Abdomen soft, non-tender, BS normal, No masses or organomegaly EXTREMITIES: Extremities normal, no deformities, edema, clubbing or skin discoloration. Good capillary refill., No ulcers NEURO: Gait normal. Reflexes normal and symmetric. Sensation grossly intact, Cranial nerves II-XII intact PULSES: 2+ radial, 2+ carotid The patient's risk for 30-day readmission is determined using the following contributing factors: Pt variables contributing to increased readmission risk: 16 Most Recent BUN Result 8.7 First Resulted Calcium During Admission 1 Previous ED Visit (6 mos.)? 1 Number of Previous ED Visits (6 mos.) 1 Insurance - Medicaid 1 Insurance - Self Pay 1 Discharge Disposition - Home Plan of care discussed with Patient, RN, and Consultants: cardiology I have performed the ovwl-tb-whhf and relevant services for a total of >30 minutes. SIGNATURE: Galileo Reaves MD DATE: May 27, 2023 TIME: 6:56 AM [facility]IV[facility] ([id number]) 1970 M Date Time Provider Department 04/27/23 COLETTE THACKER During your visit today, we recorded the following information about you: Colette Thacker MD 04/27/2023 5:14 PM Signed Hospital transfer from [facility] to [facility]. Sivan Oconnor 53 yo male with hx of DM, HTN, dyslipidemia, obesity, tobacco abuse, with exertional chest pain. Abnormal stress and positive cath with needing revascularization of circumflex marginal branch and RCA. Accepted to [facility]. Colette Thacker MD April 27, 2023 5:14 PM Allergies As of Date: 04/27/2023 Noted Allergy Reaction AMLODIPINE 04/24/2023 14 - Other: See Comments Comments: Facial numbness Date Reviewed: 04/27/2023 Reviewed by: Yolanda Clarke, KAN - Fully Assessed Reason for Visit: Hospital Admission [917] Cmt: Hospital transfer from [facility] to [facility]. Prescriptions as of 04/27/2023 - glimepiride (AMARYL) 2 mg tablet Take 1 tablet by mouth daily with breakfast. - ASHWAGANDHA EXTRACT ORAL Take 500 mg by mouth daily at bedtime. - Amphetamine-Dextroamph etamine (ADDERALL) 30 mg tablet Take 1 tablet by mouth twice daily for 30 days. - Amphetamine-Dextroamph etamine (ADDERALL) 30 mg tablet Take 1 tablet by mouth twice daily for 30 days. Do not start before January 20, 2023. - Amphetamine-Dextroamph etamine (ADDERALL) 30 mg tablet Take 1 tablet by mouth twice daily for 30 days. Do not start before February 19, 2023. - pioglitazone (ACTOS) 15 mg tablet Take 1 tablet by mouth once daily. - atorvastatin (LIPITOR) 20 mg tablet Take 1 tablet by mouth daily at bedtime. For cholesterol. Facility-Administered Medications as of 04/27/2023 - famotidine 20 mg tab(s) (PEPCID) - perflutren lipid microspheres 1.1 mg/mL 1.3 mL injection (DEFINITY) - aspirin 81 mg chewable tab(s) - metoprolol tartrate (short acting) 12.5 mg tab(s) (LOPRESSOR) - isosorbide mononitrate ER 30 mg tab(s) (IMDUR) - glimepiride 2 mg tab(s) (AMARYL) - pioglitazone 15 mg tab(s) (ACTOS) - atorvastatin 20 mg tab(s) (LIPITOR) - dextrose 40 % 15 g - glucagon 1 mg injection - dextrose 10% iv bolus - NaCl 0.9% iv flush bag - insulin lispro injection (rapid acting) (ADMElog) - melatonin 3 mg tab(s) Problem List As Of Date 04/27/2023 Noted Resolved ADD (attention deficit disorder) [F98.8] 08/28/2011 Hypertension [I10] 08/28/2011 Type 2 diabetes mellitus without complication (*12/26/2015 Mild intermittent asthma without complication [*12/26/2015 Special screening for malignant neoplasm of col*02/25/2023 Exertional chest pain [R07.9] 04/23/2023 Obesity (BMI 30-39.9) [E66.9] 04/23/2023 Allergic reaction [T78.40XA] 04/24/2023 Obesity, Class II, BMI 35-39.9 [E66.9] 04/26/2023 Encounter Status:Closed by COLETTE THACKER on 04/27/23 [facility] CONSULT PROGon 04-27-2023 CONSULT PROG HNO ID: [id number] Author: Adenike Aldridge formerly [facility]: Pharmacy Author Type: Pharmacist Type: Consult Progress Note Filed: 04/27/2023 12:55 PM Note Text: PHARMACY PROGRESS NOTE Patient Name: Sivan Tamayo Admission Date: 04/23/2023 Date of Consult: 04/27/2023 Time of Consult: 12:55 PM In accordance with the inpatient pharmacy consult agreement the following medication changes have been made: IV to PO Discontinue famotidine 20mg IV BID, change to famotidine 20mg PO BID per IV to PO guidelines. Pharmacy will continue to monitor patient for continued eligibility of these medication changes. Please call with any questions or concerns. SIGNATURE: Adenike Luis Carlos formerly [facility] DATE/TIME: 04/27/2023 12:55 PM Normal [facility] ECHOon 04-27-2023 Echocardiography Echocardiography Report: Transthoracic Echo [facility] Date of service: 04/27/2023 12:35:52 PM Ordering physician: PREETHI CAUSEY Indication: Chest Pain Technologist: Trang Tanner [facility] Interpreting physician: Sussy Arana MD PATIENT: Name: MR. SIVAN TAMAYO : 1970 Age: 53 years Gender: M History of hypertension and diabetes mellitus. Primary rhythm: sinus. Height: 180.30 cm BSA: 2.39 m Weight: 114.31 kg BMI: 35.2 kg/m Heart rate 77 bpm Blood pressure 123/75 mmHg Color Doppler was utilized to interrogate the cardiac valves assessed and spectral Doppler was utilized to determine the flow velocities and pressure gradients reported in this exam. Myocardial strain analysis was performed in this exam to aid in the assessment of cardiac function. MEASUREMENTS: Value Indexed Normal Max aortic dimension 3.8 cm Ao < 3.8 Left atrium diameter 3.8 cm (2D) Left atrial volume 72 ml (biplane A-L) 30 ml/m Casey <= 34 LV ID (diastole) 4.6 cm (2D) 1.92 cm/m LV ID (systole) 2.8 cm (2D) 1.15 cm/m IVS, leaflet tips 1.4 cm (2D) Posterior wall thickness 1.1 cm (2D) Left ventricular mass 212 g (2D) 88 g/m Global peak long strain -16.5 % LV stroke volume 76 ml (2D biplane) LV end diastolic volume 131 ml (2D biplane) 54.8 ml/m 34<=EDVi<75 LV end systolic volume 55 ml (2D biplane) 23.0 ml/m Ejection Fraction 58 % (2D biplane) EF > 52 FINDINGS: LEFT VENTRICLE The left ventricle is normal in size. There is mild septal wall hypertrophy. Left ventricular systolic function is normal. Global LV myocardial strain is normal. Grade I diastolic dysfunction Mitral annular lateral E/e': 8.9. Mitral annular septal E/e': 9.7. Wall Motion: All scored segments are normal. RIGHT VENTRICLE The right ventricle is normal in size. Right ventricular systolic function is normal. RV systolic tissue Doppler velocity is 19.4 cm/s. Tricuspid annular displacement is 1.9 cm. Estimated right ventricular systolic pressure is 27 mmHg consistent with normal pulmonary artery pressures. Estimated right atrial pressure is 15 mmHg based on IVC assessment. LEFT ATRIUM The left atrial cavity is normal in size. Pulmonary Veins: The pulmonary venous pattern showed normal systolic flow. RIGHT ATRIUM The right atrial cavity is normal in size. Inferior Vena Cava: The inferior vena cava appears dilated measuring 2.2 cm. The vessel decreases less than 50 percent with inspiration. MITRAL VALVE The mitral valve leaflets are mildly thickened. There is mild (1+) mitral valve regurgitation. There is no mitral stenosis. The pressure half time is 88 msec. The peak mitral E/A ratio is 0.93. The average mitral E/e' ratio is 9.3. The mitral flow deceleration time is 304 msec. TRICUSPID VALVE The tricuspid valve leaflets are structurally normal. There is mild tricuspid valve regurgitation. AORTIC VALVE The aortic valve cusps are structurally normal. There is no aortic valve regurgitation. The aortic valve leaflets are not well visualized. There is no aortic valve stenosis. The peak gradient is 8 mmHg (peak velocity = 141.0 cm/s). PULMONIC VALVE The pulmonic valve was not seen or not interrogated. The peak gradient is 8 mmHg. AORTA The visualized aorta is borderline dilated. Measurements - Sinus: 3.8 cm. Mid ascending aorta 3.56 cm. PERICARDIUM There is no pericardial effusion. CONCLUSIONS: - Exam indication: Chest Pain - The left ventricle is normal in size. Left ventricular systolic function is normal. EF = 58 5% (2D biplane) Normal left ventricular diastolic function. - The right ventricle is normal in size. Right ventricular systolic function is normal. - The visualized aorta is borderline dilated with a maximal dimension of 3.8 cm. - Mildly dilated ascending aoerta measuring 3.56cm. - There is mild (1+) mitral regurgitation. - Estimated right ventricular systolic pressure is 27 mmHg consistent with normal pulmonary artery pressures. Estimated right atrial pressure is 15 mmHg based on IVC assessment. - Mildly dilated ascending aoerta measuring 3.56cm. - The patient has not had a prior CC echocardiographic exam for comparison. * * * Final * * * [facility] : [id number] Normal [facility] HISTORY PHYSICALon HISTORY PHYSICAL HNO ID: [id number] Author: Acosta Lora MD Service: Hospital Medicine Author Type: Physician Type: HANDP Filed: 04/27/2023 10:08 PM Note Text: HISTORY AND PHYSICAL Department of Hospital Medicine Service Date: 04/27/2023 Service Time: 7:26 PM Primary Care Physician: Wes Gates MD [facility] COVERAGE:Days: [phone], please page the listed teaching team or attending provider for patient issues. Nights: [phone], please page [facility] Hospitalist Night Coverage pager: [phone] for teams #1, #2 and #3 (A, B and C). For teams #4, #5 and #6 (D, E and F) page [phone]. Assessment/Plan: 1. Coronary artery disease, chicken ranch heart, chicken ranch arteries, with unstable angina Patient with mild exertional chest pain 1-2 times per week over the last couple months, now with severe episode prior to admission. Left heart cath at [facility] showing significant coronary artery stenosis-see data section below. N.p.o. after midnight except medications, ice chips, sips in anticipation of repeat left heart cath with intervention. Consult cardiology with Dr. Pollock. Continue aspirin 81 mg p.o. daily, atorvastatin-increase to 40 mg at bedtime, metoprolol 12.5 mg every 12 hours, Imdur 30 mg p.o. daily (initiated at outside hospital). Patient has not been initiated on any additional anticoagulation per cardiology recommendations. Telemetry, intermittent pulse oximetry, PRN oxygen, repeat troponin with a.m. labs. Follow progress closely 2. Essential hypertension Continue Imdur and metoprolol as noted above. Follow BP closely. Of note, patient was given a dose of amlodipine at [facility] but had what they presumed was an allergic reaction. 3. Mixed hyperlipidemia-statin intensified as noted above 4. Diabetes mellitus type 2, without noted complications, not on long-term insulin Hold glimepiride as patient will be n.p.o. in the morning. Continue Actos. CBGs with meals and at bedtime. Level 1 insulin sliding scale. Hemoglobin A1c was 9% in December. Will repeat with a.m. labs. 5. Obesity class II-BMI 35.1 Encourage healthy lifestyle and dietary changes for weight loss. Patient to follow up with PCP outpatient. 6. Adult ADD -he has not taken his Adderall for the last month or so. Advised to avoid stimulant medications like Adderall in the future. DVT prophylaxis -patient is considered low risk per algorithm Disposition -Case management assessment. Subjective: CC: chest pain, intermittent, with CAD on LHC at [facility] HPI: This is a 53 year old male with past medical history of adult ADD, hypertension, hyperlipidemia, obesity (BMI 35), diabetes mellitus type 2, poorly controlled. Patient initially presented to his outpatient PCP office on 04/23/2023 and was sent to the [place] ER for evaluation of intermittent chest pain. Patient states he has had twinges of intermittent left substernal chest pain, particular with exertion over the last several months. The day prior to his PCP visit, patient had had a significant episode playing [employer] ball where he felt his heart was racing and had left-sided midsternal chest pain, resolving after rest, lasting approximately 10 minutes total. He had some associated diaphoresis and shortness of breath as well. The day of his visit to his PCP, he had a similar but less intense episode during a 3 mile walk which also resolved with rest. Of note, he has strong family history of coronary artery disease with his brother having had an acute SD at age 39. Patient was evaluated by cardiology at [facility]. Troponins were negative. EKG nonischemic. He had a nuclear stress test on 04/26/2023 showing mild ischemia in the RCA territory and otherwise a low risk scan. Patient had echo today showing EF 58%, mild MR. He had left heart cath today by Dr. Dunlap and was found to have 99% circumflex distal stenosis and a 95% distal stenosis of the RCA. Recommendation was to transfer patient to a facility capable of placing stents. Patient arrived to [facility] and is awaiting a cardiology evaluation. Patient has had no further chest pain since arrival. Medications: glimepiride (AMARYL) 2 mg tabletTake 1 tablet by mouth daily with breakfast.Disp: 90 tabletRfl: 3 ASHWAGANDHA EXTRACT ORALTake 500 mg by mouth daily at bedtime.Disp: Rfl: Amphetamine-Dextroamph etamine (ADDERALL) 30 mg tabletTake 1 tablet by mouth twice daily for 30 days.Disp: 60 tabletRfl: 0 Amphetamine-Dextroamph etamine (ADDERALL) 30 mg tabletTake 1 tablet by mouth twice daily for 30 days. Do not start before January 20, 2023.Disp: 60 tabletRfl: 0 Amphetamine-Dextroamph etamine (ADDERALL) 30 mg tabletTake 1 tablet by mouth twice daily for 30 days. Do not start before February 19, 2023.Disp: 60 tabletRfl: 0 pioglitazone (ACTOS) 15 mg tabletTake 1 tablet by mouth once daily.Disp: 30 tabletRfl: 11 atorvastatin (LIPITOR) 20 mg tabletTake 1 tablet by mouth daily at bedti (more content not included)... [facility] NURSING PROGon 04-27-2023 NURSING PROG HNO ID: [id number] Author: Julianna Pedro, KAN Service: Nursing Author Type: Registered Nurse Type: Nursing Progress Note Filed: 04/27/2023 8:01 PM Note Text: Transfer Note: PATIENT NAME: Sivan Tamayo Patient Location: [place] [address] [address] Room: [place] [address] [facility] Had diagnostic cath and positive stress test. Needs stents. Pt A/Ox3, no c/o chest pain or SOB. VSS. NSR with PVCs. at bedside. Answered all questions. Hospitalist at bedside discussing plan with patient. NPO after midnight for cath tomorrow. [facility] OPERATIVE NOon 04-27-2023 OPERATIVE NO HNO ID: [id number] Author: Jovanna Dunlap DO Service: Cardiovascular Disease Author Type: Physician Type: Operative Report Filed: 04/27/2023 11:09 AM Note Text: [facility] Mariah Torres Department of Cardiovascular Medicine SECTION OF [facility] CARDIOLOGY/[facility] TOP LIFT NAILER PROCEDURE REPORT PATIENT NAME: Sivan Tamayo SERVICE DATE: April 27, 2023 SERVICE TIME: 11:00 AM PLASTERER APPRENTICE: Jovanna Dunlap DO ATTENDING: Galileo Reaves MD PRIMARY CARE PHYSICIAN: Wes Gates MD REFERRING PROVIDER: IRANIAN STUDY OF HEALTH and AGING SCALE:3=Managing Well CARDIOVASCULAR INSTABILITY:No PRE-PROCEDURE DIAGNOSIS: Abnormal Stress Test Angina, Unstable POST PROCEDURE DIAGNOSIS: Left main trunk was normal Left anterior descending artery had mild to moderate diffuse disease with a 50% mid stenosis Circumflex artery had a 99% distal stenosis of a large first obtuse marginal branch that was a trifurcating vessel Dominant right coronary artery had mild to moderate diffuse disease with a 95% distal stenosis involving the bifurcation of the medium sized posterior sending artery and posterolateral branches Normal left ventricular systolic function PROCEDURE: Left Heart Catheterization LV Gram MODERATE SEDATION: Moderate Sedation provided by Cardiology Nursing Staff. Moderate sedation consisting of continuous ECG, pulse oximetry and cardiopulmonary monitoring was performed by the Cardiology Nurse, overseen by supervising physician. Sedative Medications: Drug: Versed Dose: 2 mg Route: IV PRIORITY AT TIME OF PROCEDURE: Elective SITE OF ENTRY: Radial:Right Radial CONTRAST: Omnipaque 300 mg Iodine/mL (iohexol injection, solution): 50 mL LEFT HEART CATHETERIZATION AND FINDINGS: The patient was taken to the cardiac equipment operator/laborer/supervisor where the entry site was prepped and draped in a sterile manner. Under local anesthesic with 2% Lidocaine, the vessel was cannulated with micropuncture technique using an arterial needle and a 5F sheath was introduced. Selective injections were made in the left and right coronary arteries and various right, left and oblique views were obtained. The aortic valve was crossed and hemodynamic measurements were recorded. LV Angiogram was performed. ADDITIONAL PROCEDURES CORONARY ANGIOGRAPHY: LEFT MAIN TRUNK: No Stenosis LEFT ANTERIOR DESCENDING: Mild to moderate diffuse disease with a 50% mid stenosis DIAGONAL #1: Mild diffuse disease LEFT CIRCUMFLEX: Mild diffuse disease MARGINAL #1: 99% distal stenosis at the level of trifurcating vessel DOMINANT: NO RIGHT CORONARY: Mild to moderate diffuse disease with a 95% distal stenosis prior to the takeoff of a medium size posterior descending and posterolateral branches DOMINANT: YES POSTERIOR DESCENDIN% ostial stenosis POSTERIOR LATERAL: 95% ostial stenosis LV GRAM: LVEF: Normal ( 60% ) WALL MOTION: Normal MITRAL VALVE REGURGITATION: Not Assessed HEMODYNAMICS: LVEDP: 18 LV - AORTA: No Gradient The sheath was removed and hemostatsis was established using manual pressure using wrist band. There was no bleeding at the end of the procedure. The pt was returned to the recovery room in a stable condition. ESTIMATED BLOOD LOSS: Less Than Minimal Unless Noted Here. SEDATION TIME: 30 min COMPLICATIONS: None SPECIMENS: No specimens obtained unless noted here. CONDITION: Stable RECOMMENDATIONS: Patient to be transferred as an inpatient for revascularization of circumflex marginal branch and RCA. Awaiting bed availability SIGNATURE: Jovanna Dunlap DO PATIENT NAME: Sivan Tamayo DATE: April 27, 2023 TIME: 11:00 AM [facility] 04-26-2023 [facility] HNO ID: [id number] Author: Jourdan Taveras RT(R) Service: Nuclear Medicine Author Type: Technologist Type: Allied Health Filed: 04/26/2023 12:15 PM Note Text: RADIOLOGY SERVICE PROGRESS NOTE SERVICE DATE: 04/26/2023 SERVICE TIME: 12:10 PM PATIENT IDENTITY VERIFICATION COMPLETED USING TWO (2) STANDARD IDENTIFIERS: Name and Date of confirmed by patient verbally FALL SCREENING: Has the patient had 2 falls in the last year or 1 fall with injury or currently using an Ambulatory Assistive Device (Walker, Cane, Wheelchair, Crutches, etc.)? Inpatient: Screened on floor PATIENT GENDER DATA: .male ALLERGIES: Reviewed and unchanged MEDICATIONS REVIEWED: Not applicable PATIENT RELEVANT IMPLANT DATA REVIEWED: Not Applicable CREATININE: Creatinine Date Value Ref Range Status 04/25/2023 0.78 0.73 - 1.22 mg/dL Final 04/23/2023 0.79 0.73 - 1.22 mg/dL Final 03/17/2022 0.76 0.73 - 1.22 mg/dL Final Estimated Glomerular Filtration Rate Date Value Ref Range Status 04/25/2023 108 >=60 mL/min/1.73m? Final Comment: Estimated Glomerular Filtration Rate (eGFR) is calculated using the 2020 CKD-EPI creatinine equation. This equation utilizes serum creatinine, sex, and age as parameters. The creatinine assay has traceable calibration to isotope dilution-mass spectrometry. Refer to KDIGO guidelines for clinical interpretation. In patients with unstable renal function, e.g. those with acute kidney injury, the eGFR may not accurately reflect actual GFR. eGFR- Date Value Ref Range Status 07/05/2021 >60 Final P.O.C.T. RESULTS: N/A April 26, [address] PERFORMED: No IV SITE: Inpatient - refer to LDA documentation POST EXAM PIV STATUS: Inpatient see [facility] documentation PROCEDURE TYPE: NM Stress: 15.0 mCi [id number] was administered IV for Rest Imaging at 11:05 by MM. 44.5 mCi [id number] was administered IV for Stress Imaging at 12:02 by KATARZYNA. PATIENT DISCHARGED TO: Patient taken to IP transport area for return to RNF/ICU/ED. A Diagnostic radioactive procedure has taken place, with no further precautions necessary other than routine body substance precautions. More information regarding radiation safety can be found using this link: [email or web address] [email or web address] [email or web address] SIGNATURE: RT Rosa(R) PATIENT NAME: Sivan Tamayo DATE: April 26, 2023 TIME: 12:10 PM PAGER/CONTACT #: Normal [facility] NM CARDIAC PERF STRESS/EXERC ISEon 04-26-2023 NM CARDIAC PERF STRESS/EXERCISE * * *Final Report* * * DATE OF EXAM: Apr 26 2023 12:50PM JAMES 0004 - NM CARDIAC PERF STRESS/EXERCISE / PROCEDURE REASON: Chest pain/anginal equiv, high CAD risk, treadmill candidate * * * * Physician Interpretation * * * * Stress Installation And Repair Technician Report: [facility] Date of service: 04/26/2023 11:25:31 AM Supervising physician: Linda Duval MD PATIENT: Name: MR. SIVAN TAMAYO Age: 53 years Gender: M The supervising physician was in the department and immediately available. * * * Final * * * ------ PATIENT: Name: MR. SIVAN TAMAYO Age: 53 years Gender: M CONCLUSIONS: 1. SPECT Perfusion Study: Abnormal. 2. No evidence of scarred myocardium. 3. There is mild (<10%) ischemia in the territory of the RCA. 4. Left ventricle is normal in size. The left ventricle systolic function is normal. 5. This is a low risk scan. Gated Stress IR:3D Gated Rest IR:3D LVEF % 56 48 Prior Study Comparison No prior nuclear cardiology exam available for comparison. Nuclear Med Report:1-Day Gated SPECT Myocardial Perfusion with Exercise Stress: Myocardial perfusion imaging was performed at rest 30 to 60 minutes following the IV injection of the radiotracer. One minute prior to peak exercise, the patient was injected IV with the radiotracer. Gated post stress tomographic imaging was performed 10 to 20 minutes later. See administered radiotracer and doses below. [facility] Date of service: 04/26/2023 11:25:31 AM Ordering Physician: PREETHI CAUSEY. Requesting Physician: Indication: CP - ECG interpretable AND able to exercise with low probability of CAD Interpreting physician: Sanjeev Laird MD Height: 180.34 cm BSA: 2.39 m? Weight: 114.31 kg BMI: 35.1 kg/m? CT Dose-Length Product(DLP): 83.7 mGy * cm. CT Dose Reduction Employed: Yes. Exam Type: Rest Stress Radiopharm: Tc-99m Tetrofosmin Tc-99m Tetrofosmin Dosage(mCi): 15.0 44.5 Atten Correction: performed performed Stress Agent: Treadmill Resting Blood Press: 133/88 mmHg Image Quality The overall study imaging quality was deemed to be good. FINDINGS: Left Ventricle Wall Motion: Stress IR:3D - Rest IR:3D - Gated Stress IR:3D - All segments are normal. Gated Rest IR:3D - All segments are normal. Reversibility - Gated Stress IR:3D Gated Rest IR:3D Stress IR:3D Gated Stress IR:3D Gated Rest IR:3D LVEF: 56 % 48 % ED Volume: 117 ml 119 ml ES Volume: 51 ml 62 ml TID: 0.93 Perfusion Findings Stress IR:3D - Summed Score=4 There is a moderate perfusion defect in the basal inferior segment. There is a mild perfusion defect in the mid inferior segment and basal inferoseptal segment. All remaining scored segments show normal perfusion. Rest IR:3D - Summed Score=0 All segments demonstrate normal perfusion. Stress IR:3D Rest IR:3D Summed Score=4 Summed Score=0 LEFT VENTRICLE The left ventricle is normal in size. Left ventricular systolic function is normal. Stress Test Findings: There is no evidence of scarring. * * * Final * * * ------ NM CTAC Report: [facility] Date of service: 04/26/2023 11:25:31 AM CTAC interpreting physician: Ari Osborne MD PATIENT: Name: MR. SIVAN TAMAYO Age: 53 years Gender: M 1. Incidental Findings from limited non-diagnostic CTAC: - No distinct coronary calcifications. * * * Final * * * ------ Stress ECG Report: [facility] Date of service: 04/26/2023 11:25:31 AM Ordering physician: PREETHI CAUSEY consumer relations specialist: Verito Betancourt Out[facility] Surgery Rn: Jessica Busch Interpreting physician: Linda Duval MD Patient name: MR. SIVAN TAMAYO Age: 53 years Gender: M Height: 180.34 cm BSA: 2.39 m? Weight: 114.31 kg BMI: 35.1 kg/m? Indication: Chest pressure / Chest tightness Stress ECG Conclusion: Conclusion: Normal with exception due to low heart rate recovery Stress ECG Summary: The patient's resting heart rate was 63 bpm and blood pressure was 133/88 mmHg. The patient exercised according to the Peter protocol. The estimated end-exercise MET level achieved using the FRIEND equation * * * was 9.4, which is within the 50th to 75th percentile for age and sex. The estimated end-exercise MET level achieved using the previous ACSM equation was 11.8. The test was terminated due to end of protocol and the total exercise time was 10 minutes and 30 seconds. Other symptoms during the test included SOB and leg fatigue. T (more content not included)... Normal [facility] NURSING PROGon 04-26-2023 NURSING PROG HNO ID: [id number] Author: Lisa Aparicio RN Service: Nursing Author Type: Registered Nurse Type: Nursing Progress Note Filed: 04/26/2023 4:35 PM Note Text: Other: 090 pt. Updated on non-stress time form today. Pt. remains NPO. 1340 Pt. returned from non-stress with no complain of chest pain or lightheadness. 1600 Dr. Reaves aware that stress test resulted. 1630 Pt. reporting that cardilogy just spoke to him AND his spouse about stress test results. Normal [facility] Basic metabolic 2000 panelon 04-25-2023 Anion gap [Moles/Vol] 12 mmol/L Normal -18 [facility] Comment on above: Order Comment: Speci men Type: BLOOD SPECIMENOrdering Facility: [facility] Address: [address] [place] [address] Performed By: #### 2 4320-07, ####[facility] LABORATORYCLIA [id number] [place] [address] [place] Calcium [Mass/Vol] 8.7 mg/dL Normal 8.5-10.2 [facility] Comment on above: Order Comment: Speci men Type: BLOOD SPECIMENOrdering Facility: [facility] Address: [address] [place] [address] Performed By: #### 2 43206-08, ####[facility] LABORATORYCLIA [id number] [place] [id number] [place] Chloride [Moles/Vol] 103 mmol/L Normal 97-105 [facility] Comment on above: Order Comment: Speci men Type: BLOOD SPECIMENOrdering Facility: [facility] Address: [address] [place] [address] Performed By: #### 2 4320-07, ####[facility] LABORATORYCLIA [id number] [place] [address] [place] CO2 [Moles/Vol] 23 mmol/L Normal 22-30 [facility] Comment on above: Order Comment: Speci men Type: BLOOD SPECIMENOrdering Facility: [facility] Address: [address] [place] [address] Performed By: #### 2 4321-2, ####[facility] LABORATORYCLIA [id number] [place] [address] [place] Creatinine [Mass/Vol] 0.78 mg/dL Normal 0.73-1.22 [facility] Comment on above: Order Comment: Speci men Type: BLOOD SPECIMENOrdering Facility: [facility] Address: [address] [place] [address] Performed By: #### 2 4321-2, ####[facility] LABORATORYCLIA [id number] [address] Creatinine and Glomerular filtration rate.predicted panel (S/P/Bld) 108 mL/min/1.73m??? Normal >=60 [facility] Comment on above: Order Comment: Speci men Type: BLOOD SPECIMENOrdering Facility: [facility] Address: [address] [place] [address] Result Comment: Liana mated Glomerular Filtration Rate (eGFR) is calculated using the 2020 CKD-EPI creatinine equation. This equation utilizes serum creatinine, sex, and age as parameters. The creatinine assay has traceable calibration to isotope dilution-mass spectrometry. Refer to KDIGO guidelines for clinical interpretation. In patients with unstable renal function, e.g. those with acute kidney injury, the eGFR may not accurately reflect actual GFR. Performed By: #### 2 4321-2, ####[facility] LABORATORYCLIA [id number] [place] [id number] [place] Glucose [Mass/Vol] 267 mg/dL High 74-99 [facility] Comment on above: Order Comment: Speci men Type: BLOOD SPECIMENOrdering Facility: [facility] Address: [address] [place] [address] Result Comment: The [place] Diabetes Association (ADA) provides guidance for cutoff values for fasting glucose and random glucose. The ADA defines fasting as no caloric intake for at least 8 hours. Fasting plasma glucose results between 100 to 125 mg/dL indicate increased risk for diabetes (prediabetes). Fasting plasma glucose results greater than or equal to 126 mg/dL meet the criteria for diagnosis of diabetes. In the absence of unequivocal hyperglycemia, results should be confirmed by repeat testing. In a patient with classic symptoms of hyperglycemia or hyperglycemic crisis, random plasma glucose results greater than or equal to 200 mg/dL meet the criteria for diagnosis of diabetes. Reference: Standards of Medical Care in Diabetes 2016, [place] Diabetes Association. Diabetes Care. 2016.39(Suppl 1). Performed By: #### 2 4320-, ####[facility] LABORATORYCLIA [id number] [place] [address] [place] Potassium [Moles/Vol] 4.7 mmol/L Normal 3.7-5.1 [facility] Comment on above: Order Comment: Shellie ortega Type: BLOOD SPECIMENOrdering Facility: [facility] Address: [address] [place] [address] Performed By: #### 2 4320-07, ####[facility] LABORATORYCLIA [id number] [place] [address] [place] Sodium [Moles/Vol] 138 mmol/L Normal 136-144 [facility] Comment on above: Order Comment: Shellie ortega Type: BLOOD SPECIMENOrdering Facility: [facility] Address: [address] [place] [address] Performed By: #### 2 4320-07, ####[facility] LABORATORYCLIA [id number] [place] [address] [place] Urea nitrogen [Mass/Vol] 20 mg/dL Normal 9-24 [facility] Comment on above: Order Comment: Shellie ortega Type: BLOOD SPECIMENOrdering Facility: [facility] Address: [address] [place] [address] Performed By: #### 2 4320-07, ####VAL[facility] LABORATORYCLIA [id number] [place] [address] [place] CONSULT PROGon 04-25-2023 CONSULT PROG HNO ID: [id number] Author: Preethi Causey APRN.GRACE Service: Cardiovascular Medicine Author Type: Nurse Practitioner Type: Consult Progress Note Filed: 04/25/2023 10:03 AM Note Text: PROGRESS NOTE CARDIOLOGY SERVICE SERVICE DATE: 04/25/2023 SERVICE TIME: 9:56 AM Subjective INTERIM HISTORY: HD#2 Admit for chest pain the day prior to admission. Significant risk factors for CAD including fam hx of premature CAD, poorly controlled DM2, obesity, hx of DINA. No further chest pain. Walked the gallegos and stairs yesterday with no chest pain. He has had a lot of ectopy since admission. Trigeminy up to 630 this am. Apparently reacted to the amlodipine last evening. CARDIAC STATUS: Chest Pain: Improved Objective PHYSICAL EXAM: Body mass index is 35.15 kg/m?. O2 Therapy: Room Air No data recorded Patient Vitals for the past 24 hrs: BP Temp Temp src Pulse Resp SpO2 04/25/23 0836 129/79 36.6 ?C (97.9 ?F) Oral 82 20 96 % 04/25/23 0424 121/74 36.2 ?C (97.2 ?F) Oral 82 18 97 % 04/25/23 0032 118/71 36.7 ?C (98.1 ?F) Oral 75 18 97 % 04/24/232010 125/74 36.8 ?C (98.2 ?F) Oral 75 18 96 % 04/24/23 1711 128/73 -- -- 72 -- 98 % 04/24/23 1652 134/68 36.6 ?C (97.9 ?F) Oral 70 18 98 % 04/24/23 1214 136/84 36.7 ?C (98.1 ?F) Oral 71 18 96 % Pleasant, comfortable, not in acute distress. Awake, alert, oriented times 3. Moves all extremities. SKIN: No rash or lumps. HEENT: Normocephalic, face symmetrical. NECK: Supple, no JVD, no carotid bruit, no thyromegaly. LUNGS: Clear to auscultation bilaterally. CARDIAC: PMI present, RRR, S1 and S2, no S3 or S4, no additional heart sounds or murmurs. ABDOMEN: Soft, nontender, bowel sounds present. EXTREMITIES: No edema. PULSES: Peripheral pulses present. MEDICATIONS: Current Facility-Administered Medications Medication Dose Route Frequency glimepiride 2 mg tab(s) (AMARYL) 2 mg ORAL DAILY WITH BREAKFAST pioglitazone 15 mg tab(s) (ACTOS) 15 mg ORAL DAILY atorvastatin 20 mg tab(s) (LIPITOR) 20 mg ORAL AT BEDTIME dextrose 40 % 15 g 15 g ORAL PRN Or glucagon 1 mg injection 1 mg INTRAMUSCULAR PRN Or dextrose 10% iv bolus 12.5 g INTRAVENOUS PRN NaCl 0.9% iv flush bag 20 mL INTRAVENOUS PRN insulin lispro injection (rapid acting) (ADMElog) SUBCUTANEOUS w MEALS AND HS melatonin 3 mg tab(s) 3 mg ORAL DAILY (8 PM) aspirin 81 mg chewable tab(s) 81 mg ORAL DAILY metoprolol tartrate (short acting) 12.5 mg tab(s) (LOPRESSOR) 12.5 mg ORAL q 12 H isosorbide mononitrate ER 30 mg tab(s) (IMDUR) 30 mg ORAL DAILY famotidine 20 mg injection (PEPCID) 20 mg INTRAVENOUS BID DATA: Diagnostic tests reviewed for today's visit: Most recent labs and imaging results. Past 72 Hour Labs: Recent Labs 04/25/23 0808 04/23/23 1218 WBC -- 5.39 RBC -- 4.81 HB -- 14.6 HCT -- 41.7 MCV -- 86.7 MCH -- 30.4 MCHC -- 35.0 RDWCV -- 12.7 PLT -- 218 MPV -- 9.4 GLUC 267* 298* BUN 20 20 CREAT 0.78 0.79 NA 138 138 K 4.7 4.6 CHLOR 103 104 CO2 23 23 TPROT -- 7.5 ALB -- 4.3 CA 8.7 8.7 ALKPHOS -- 85 TBILI -- 0.2 AST -- 21 ALT -- 23 MG 2.3 2.2 Last Lab Drawn: Triglyceride 193 04/24/2023 HDL Cholesterol 35 04/24/2023 LDL Cholesterol 118 04/24/2023 Cholesterol, Total 192 04/24/2023 Assessment/Plan Principal Problem: Exertional chest pain (POA: Yes) Assessment AND Plan: no further chest pain but concerning for [place]. Though no recurrence. Continue asa, lipitor, imdur, lopressor for now Plan on echo and nuclear exercise stress tomorrow. He can follow up in our office after discharge. Active Problems: Hypertension (POA: Yes) Assessment AND Plan: good control currently On lopressor, imdur Type 2 diabetes mellitus without complication (HCC) (POA: Yes) Assessment AND Plan: last A1c 9 Will need intense risk factor modification after discharge. Allergic reaction (POA: Unknown) Assessment AND Plan: resolved after benadryl. Likely culprit was amlodipine. Resolved Problems: * No resolved hospital problems. * Medication and Non-Pharmacologic VTE Prophylaxis/Anticoagul ants Anticoagulant AND Antiplatelet Medications (From admission, onward) Start Dose Route Frequency Last Action Ordered Stop 04/24/23929 aspirin 81 mg chewable tab(s) 81 mg ORAL DAILY Given, 04/24 94504/24/23907 -- VTE Prophylaxis: VTE prophylaxis appropriate SIGNATURE: Preethi Causey APRN.CNP PATIENT NAME: Sivan Tamayo DATE: April 25, 2023 TIME: 9:56 AM [facility] Magnesium SerPl-mCncon 04-25 Magnesium [Mass/Vol] 2.3 mg/dL Normal 1.7-2.3 [facility] Comment on above: Order Comment: Speci men Type: BLOOD SPECIMENOrdering Facility: [facility] Address: [address] [place] [address] Performed By: #### 2 4321-2, 06670-1 ####[facility] LABORATORYCLIA [id number] [place] [address] [place] NURSING PROGon 04-25-2023 NURSING PROG HNO ID: [id number] Author: Lisa Aparicio RN Service: Nursing Author Type: Registered Nurse Type: Nursing Progress Note Filed: 04/25/2023 12:25 PM Note Text: Other: 0730 Pt. Hs visitor at bedside. 1000 DR. Turner here seeing pt. , updated on labs AND vitals. 1225 Cardiology , Preethi Causey BULL GANG SUPERVISOR here with updated on pt. [facility] CASE MGT INIT ASSESon [address] [facility] HNO ID: [id number] Author: Kenzie Harvey, KAN Service: ? Author Type: Registered Nurse Type: Care Mgt Initial Assessment Filed: 04/24/2023 11:23 AM Note Text: CARE MANAGEMENT: ASSESSMENT AND DISCHARGE PLAN SERVICE DATE: April 24, 2023 SERVICE TIME: 11:22 AM PCP: Wes Gates MD Primary Contact: Extended Emergency Contact Information Primary Emergency Contact: Johana Tamayo Mobile Relation: Spouse Admission Status: Observation Insurance Provider: N/A Discharge Planning requested by: Per Department Practice Potential Transition Plans Home Advance Directives Current Advance Directive: None Current Living Arrangements and Support Lives with: Spouse/significant other How do you manage to accomplish the following: Independent: Ambulation;Bathe/Showe r;Dress;Meals/Meal Prep;Going to the bathroom;Medication Management;Transportat ion to appointments/community Stewart of Choice Explained: Stewart of Choice Given: No Reason Not Given: No placements necessary Are you interested in bedside delivery of your medications? No Caregiver Assessment: Caregiver is ready, willing and able to meet the patient's needs as recommended by the inter-professional team: No Caregiver needed Transport at Discharge: Transportation Arrangements: Car Needs Prior to Discharge: Needs Prior to Discharge: To Be Determined Post-Acute Discharge Plan: This patient has been screened for Care Management Transitional Planning Services. At this time, it does not appear this patient will require transition planning services. Should this change, and the patient require transition planning services during this admission, please contact the patient case manager assigned to the floor. Thank you. SIGNATURE: Kenzie Harvey RN PATIENT NAME: Sivan Tamayo DATE: April 24, 2023 TIME: 11:22 AM CONTACT #: [phone] [facility] CONSULTon 04-24-2023 CONSULT HNO ID: [id number] Author: Preethi Causey APRN.CNP Service: Cardiovascular Medicine Author Type: Nurse Practitioner Type: Consults Filed: 04/24/2023 9:37 AM Note Text: Attestation signed by Sussy Arana MD at 04/24/2023 7:38 PM (Updated) .[facility] STAFF PHYSICIAN NOTE OF PERSONAL INVOLVEMENT IN CARE In summary, Sivan Tamayo is a 53-year-old male, history of DM, HTN, ADD who initially presented with exertional type chest pain x2 once while from pickleball and the second episode occurring while taking a walk. Described as dull as well as sharp. Left-sided. Nonradiating. Lasting 1 to 2 minutes long. He was able to resume able ball after resting for a few minutes. On arrival to ED, BP 137/79, HR 94, afebrile. Physical exam was unremarkable. Mild focal tenderness over left parasternal region with palpation. Troponins: 8 -> 7 - >8. EKG showed NSR HR 80, PVC. He has remained chest pain-free. Denies shortness of breath, palpitations, orthopnea, PND, leg swelling, lightheadedness, syncope. Atypical chest pain DM Hypertension PVCs Family history of premature CAD Recommendations: Patient describes atypical type chest pain. He does have significant risk factors for CAD-DM, HTN, family history of premature CAD. -Start aspirin, moderate intensity statin, metoprolol, Imdur and amlodipine. -Likely can arrange for TTE and nuclear stress test as an outpatient once he remains hemodynamically stable, chest pain free and ventricular ectopy remains stable. -Continue to monitor on telemetry. -Encourage ambulation. I have reviewed the documentation obtained and documented by the Nurse Practitioner and I have personally performed the substantive portion of the visit which includes the medical decision making. I have discussed the case and management of the patient's care. (Inpatient): I personally spent 45 total minutes total time in the management and care of this patient. STAFF PHYSICIAN: Sussy Arana MD DATE OF SERVICE: April 24, 2023 TIME OF SERVICE: 12:41 PM PATIENT NAME: Sivan Tamayo DATE of SERVICE: April 24, 2023 Primary Care Physician: Wes Gates MD Reason for consult: chest pain HPI: This is a 53 year old male with pMH of ADD, DM2, HTN, obesity, who presents with exertional chest pain x 2 episodes. Once while playing pickle ball and the other while walking. Strong family hx of premature CAD States 2 days ago was playing pickleball and developed left chest tightness, diaphoresis and shortness of breath, he apparently went pale per his and witnesses. This episode lasted a few minutes. They then resumed play and it did not happen again. The next day he walked 3 miles, felt a slight discomfort in his left chest that was not as intense as the previous. None since then. Had DINA but lost 30 lbs and the snoring and apnea symptoms went away per his . Cardiac History: No previous cardiac work up Past Medical History: PAST MEDICAL HISTORY Diagnosis Date ADD (attention deficit disorder) 08/28/2011 Diabetes (HCC) Hypertension 08/28/2011 Obesity Past Surgical History: PAST SURGICAL HISTORY Procedure Laterality Date ARTHROSCOPY KNEE DIAGNOSTIC W/WO SYNOVIAL BX SPX Left 2014 meniscus OSTECTOMY CALCANEUS SPUR W/WO PLNTAR FASCIAL RLS Left REPAIR NASAL SEPTUM PERFORATN devation REPAIR UMBILICAL HERNIA 01/08/16 Cardiac Risk Factors: Smoking No, HTN Yes, Hyperlipidemia unknown, DM Yes, FHx Yes Family History: FAMILY HISTORY Problem Relation Age of Onset Diabetes Mother Lung Cancer Mother Amblyopia Father other (gastric CA) Father Diabetes Brother Cataract Brother Coronary Artery Disease Brother Large AMI at age 39 Social History: Social History Tobacco Use Smoking status: Never Smokeless tobacco: Never Vaping Use Vaping Use: Never used Substance Use Topics Alcohol use: No Drug use: No Allergies: ALLERGIES No Known Allergies Medications: Prior to Admission Medications Prescriptions Last Dose Informant Patient Reported? Taking? ASHWAGANDHA EXTRACT ORAL Yes No Sig: Take 500 mg by mouth daily at bedtime. Amphetamine-Dextroamph etamine (ADDERALL) 30 mg tablet No No Sig: Take 1 tablet by mouth twice daily for 30 days. Amphetamine-Dextroamph etamine (ADDERALL) 30 mg tablet No No Sig: Take 1 tablet by mouth twice daily for 30 days. Do not start before January 20, 2023. Amphetamine-Dextroamph etamine (ADDERALL) 30 mg tablet No No Sig: Take 1 tablet by mouth twice daily for 30 days. Do not start before February 19, 2023. atorvastatin (LIPITOR) 20 mg tablet No Yes Sig: Take 1 tablet by mouth daily at bedtime. For cholesterol. glimepiride (AMARYL) 2 mg tablet No Yes Sig: Take 1 tablet by mouth daily with juan david (more content not included)... Normal [facility] HIGH SENSITIVITY TROPONIN To n 04-24-2023 Troponin T.cardiac High sensitivity method [Mass/Vol] 10 ng/L Normal <12 [facility] Comment on above: Order Comment: Shellie ortega Type: BLOOD SPECIMEN Ordering Facility: [facility] Address: [address] [place] [address] Result Comment: When assessing risk for acute coronary syndromes: In patients undergoing blood draw greater than or equal to 2 hours from symptom onset, with history of very low to moderate risk and non-ischemic ECG, an initial hs-Troponin T less than 12 ng/L AND a 1 hour delta hs-Troponin T less than 3 ng/L should be considered very low risk for 30 day MACE. Performed By: #### 2 4331-1, HSTNT #### [facility] CLIA [id number] [address] STATES OF [facility] Troponin T.cardiac High sensitivity method [Mass/Vol] 10 ng/L Normal <12 [facility] Comment on above: Order Comment: Shellie ortega Type: BLOOD SPECIMEN Ordering Facility: [facility] Address: [address] [place] [address] Result Comment: When assessing risk for acute coronary syndromes: In patients undergoing blood draw greater than or equal to 2 hours from symptom onset, with history of very low to moderate risk and non-ischemic ECG, an initial hs-Troponin T less than 12 ng/L AND a 1 hour delta hs-Troponin T less than 3 ng/L should be considered very low risk for 30 day MACE. Performed By: #### 2 4331-1, HSTNT #### [facility] CLIA [id number] [address] [place] [address] [place] Lipid 1996 panelon 3 Cholesterol [Mass/Vol] 192 mg/dL Normal <200 [facility] Comment on above: Order Comment: Shellie ortega Type: BLOOD SPECIMEN Ordering Facility: [facility] Address: [address] [place] [address] Result Comment: <200 mg/dL, Desirable 200-239 mg/dL, Borderline high >239 mg/dL, High Performed By: #### 2 4331-1, HSTNT #### [facility] CLIA [id number] [address] Cholesterol in HDL [Mass/Vol] 35 mg/dL Low >39 [facility] Comment on above: Order Comment: Shellie ortega Type: BLOOD SPECIMEN Ordering Facility: [facility] Address: [address] [place] [address] Result Comment: 40-5 9 mg/dL, Acceptable >59 mg/dL, High: Negative risk factor for coronary heart disease <40 mg/dL, Low: Positive risk factor for coronary heart disease Performed By: #### 2 4331-1, HSTNT #### [facility] CLIA [id number] [address] Cholesterol in LDL [Mass/Vol] 118 mg/dL High <100 [facility] Comment on above: Order Comment: Shellie shannon Type: BLOOD SPECIMEN Ordering Facility: [facility] Address: [address] [place] [address] Result Comment: <100 mg/dL, Optimal 100-129 mg/dL, Near optimal/above optimal 130-159 mg/dL, Borderline high 160-189 mg/dL, High >189 mg/dL, Very high Secondary prevention optimal LDL Cholesterol levels are recommended to be < 70 mg/dL Performed By: #### 2 4331-1, HSTNT #### [facility] CLIA [id number] [address] Cholesterol in LDL/Cholesterol in HDL [Mass ratio] 3.37 {ratio} High <2.54 [facility] Comment on above: Order Comment: Shellie shannon Type: BLOOD SPECIMEN Ordering Facility: [facility] Address: [address] [place] [address] Result Comment: Refe rence: 1. National Cholesterol Education Program ATP III Guideline At-A-Glance Quick Desk Reference: National Heart, Lung, and Blood Wrens. National Institutes of Health. 2001: NIH Publication No. 01-3305. 2. An International Atherosclerosis Society position paper: global recommendations for the management of dyslipidemia: executive summary, Atherosclerosis. 2014: 232(2):410-413. Performed By: #### 2 4331-1, HSTNT #### [facility] CLIA [id number] [address] Cholesterol in VLDL [Mass/Vol] 39 mg/dL High <30 [facility] Comment on above: Order Comment: Speci men Type: BLOOD SPECIMEN Ordering Facility: [facility] Address: [address] [place] [address] Performed By: #### 2 4331-1, HSTNT #### [facility] CLIA [id number] [address] Cholesterol non HDL [Mass/Vol] 157 mg/dL High <130 [facility] Comment on above: Order Comment: Nancyi [facility] Type: BLOOD SPECIMEN Ordering Facility: [facility] Address: [address] [place] [address] Result Comment: <130 mg/dL, Optimal 130-159 mg/dL, Near optimal/above optimal 160-189 mg/dL, Borderline high 190-219 mg/dL, High >219 mg/dL, Very high Secondary prevention optimal non HDL Cholesterol levels are recommended to be <100 mg/dL Performed By: #### 2 4331-1, HSTNT #### [facility] CLIA [id number] [address] Cholesterol.total/Cho lesterol in HDL [Mass ratio] 5.49 {ratio} High <5.10 [facility] Comment on above: Order Comment: Nancyi [facility] Type: BLOOD SPECIMEN Ordering Facility: [facility] Address: [address] [place] [address] Performed By: #### 2 4331-1, HSTNT #### [facility] CLIA [id number] [address] OF [facility] FASTING TIME 8 hrs Normal [facility] Comment on above: Order Comment: Nancyi men Type: BLOOD SPECIMEN Ordering Facility: [facility] Address: [address] [place] [address] Performed By: #### 2 4331-1, HSTNT #### [facility] CLIA [id number] [address] [place] [address] [place] Triglyceride [Mass/Vol] 193 mg/dL High <150 [facility] Comment on above: Order Comment: Speci men Type: BLOOD SPECIMEN Ordering Facility: [facility] Address: [address] [place] [address] Result Comment: <150 mg/dL, Normal 150-199 mg/dL, Borderline high 200-499 mg/dL, High >499 mg/dL, Very high Performed By: #### 2 4331-1, HSTNT #### [facility] CLIA [id number] [address] [place] [address] [place] MEDICAL EMERon 04-24-2023 MEDICAL ARELY HNO ID: [id number] Author: Demario Kee APRN.PATIENT CASE MANAGER Service: Critical Care Author Type: Nurse Practitioner Type: Chg in Clinical Condition Filed: 04/24/2023 7:59 PM Note Text: MEDICAL EMERGENCY TEAM Rapid Response CODE STATUS: Code Status: Not on file BACKGROUND 53 year old male presented with past medical history of ADD (attention deficit disorder) (08/28/2011), Diabetes (HCC), Hypertension (08/28/2011), and Obesity, who presents to [place] ER after two episodes of exertional chest pain and improved with rest on 04/23/23 and admitted to the [facility] for [facility] continuation of care. At 1659 on 04/24/23 a SENIOR PROGRAM PLANNER was called by the nursing staff for complaints of facial numbness around the lips and nose and bilateral upper extremity numbness and tingling especially in hte hands. ~ one hour from receiving first dose of amlodipine. No CP or SOB. Feels fatigued. No airway compromise and findings suggestive of angioedema. Airway grossly patent. Primary service at bedside and discussed plan. BS > 100. REASON FOR CALL - ? Allergic reaction ASSESSMENT - Allergic reaction (amlodipine) INTERVENTIONS - 20 mg IV Pepcid - 125 mg of solumedrol - 50 mg benadryl - Continuous pulse ox - Add amlodipine to allergy list DISPOSITIONS Unchanged Primary Team Notified: Yes PAST MEDICAL / SURGICAL HISTORY PAST MEDICAL HISTORY Diagnosis Date ADD (attention deficit disorder) 08/28/2011 Diabetes (HCC) Hypertension 08/28/2011 Obesity PAST SURGICAL HISTORY Procedure Laterality Date ARTHROSCOPY KNEE DIAGNOSTIC W/WO SYNOVIAL BX SPX Left 2014 meniscus OSTECTOMY CALCANEUS SPUR W/WO PLNTAR FASCIAL RLS Left REPAIR NASAL SEPTUM PERFORATN devation REPAIR UMBILICAL HERNIA 01/08/16 AIRWAY HISTORY Difficult Airway: Unknown PERTINENT PHYSICAL EXAM and INITIAL ASSESSMENT (For vital signs prior and during MET call, see nursing documentation) Pertinent Vital Signs at Time of MET Call: See Emergency response doc Appearance: Alert, No distress, and Cooperative Airway Patent: Yes Breathing Evaluation: Normal Circulation Evaluation: Pulses Regular and Heart Sounds No murmur, gallop or rub Neurologic Evaluation: GCS Evaluation: 4. Spontaneous, 5: Oriented 6: Obeys Motor commands Is the Level of Consciousness at Baseline: Yes Lungs: clear Peripheral 04/23/23 1213 [facility] Short Right Antecubital 18 Gauge (Active) Placement Date/Time: 04/23/231212 Line, Drain, Airway Placed by: [facility] Type of Peripheral Line: Short Location: Right Insertion Site: Antecubital Size: 18 Gauge PERTINENT DIAGNOSTICS Diagnostic Tests Reviewed: Most recent labs and imaging results. Primary Team Aware/Notified: Yes This patient has a high probability of sudden, clinically significant deterioration, which requires the highest level of provider preparedness to intervene urgently. I managed/supervised life or organ supporting interventions that required frequent provider assessment. I devoted my full attention to the direct care of this patient for the amount of time indicated below. Time I spent with family or surrogate(s) is included only if the patient was incapable of providing the necessary information or participating in medical decision making. Time devoted to teaching and to any procedures I billed separately is not included. Time also spent in coordination of care with other treating providers. Critical Care Documentation: The patient has the following organ/system impairment(s): Immunology, Pulm, ENT Time spent providing critical care services: 30 minutes. Demario Kee APRN.CNP Pager MHO SIGNATURE: Demario Kee APRN.CNP PATIENT NAME: Sivan Tamayo DATE: April 24, 2023 TIME: 7:48 PM Normal [facility] NURSING PROGon 04-24-2023 NURSING PROG HNO ID: [id number] Author: Frances Raza, KAN Service: Nursing Author Type: Registered Nurse Type: Nursing Progress Note Filed: 04/24/2023 6:52 PM Note Text: Other: 1659: Patient endorsing feeling funny in my head. I feel out of it. Like I'm lethargic. Also concerned if he's having a reaction to the amlodipine that was given at 1606 or if it's due to his blood pressure. Patients vitals are stable. Manual BP 140/72. Patient started to endorse numbness and tingling in bilateral upper extremities, numbness in the lips, and a slight headache. Concern for allergic reaction to amlodipine with risk to airway. SENIOR PROGRAM PLANNER called. 1718: IV Pepcid, IV Benadryl, and IV Solu-medrol given. Patient placed on cont. Pulse-ox per order. at bedside. 1745: Patient verbalizes that he is feeling better and does not feel as lethargic as before. Patient ambulated to bathroom with no problems. 1846: Rounded on patient. Observed patient sleeping. Observed chest rise. at bedside. Normal [facility] CBC panel Auto (Bld)on 04-23 Erythrocyte distribution width (RBC) [Ratio] 12.7 % Normal 11.5-15.0 [facility] Comment on above: Order Comment: Speci men Type: BLOOD SPECIMEN Ordering Facility: [facility] Address: [place] [address] Performed By: #### 5 8410-2 #### [facility] CLIA [id number] [address] [place] [address] [place] Hematocrit (Bld) [Volume fraction] 41.7 % Normal 39.0-51.0 [facility] Comment on above: Order Comment: Speci men Type: BLOOD SPECIMEN Ordering Facility: [facility] Address: [address] [place] [address] Performed By: #### 5 8410-2 #### [facility] CLIA [id number] [address] Hemoglobin (Bld) [Mass/Vol] 14.6 g/dL Normal 13.0-17.0 [facility] Comment on above: Order Comment: Speci men Type: BLOOD SPECIMEN Ordering Facility: [facility] Address: [address] [place] [address] Performed By: #### 5 8410-2 #### [facility] CLIA [id number] [address] MCH (RBC) [Entitic mass] 30.4 pg Normal 26.0-34.0 [facility] Comment on above: Order Comment: Speci men Type: BLOOD SPECIMEN Ordering Facility: [facility] Address: [address] [place] [address] Performed By: #### 5 8410-2 #### [facility] CLIA [id number] [address] MCHC (RBC) [Mass/Vol] 35.0 g/dL Normal 30.5-36.0 [facility] Comment on above: Order Comment: Speci men Type: BLOOD SPECIMEN Ordering Facility: [facility] Address: [address] [place] [address] Performed By: #### 5 8410-2 #### [facility] CLIA [id number] [address] MCV (RBC) [Entitic vol] 86.7 fL Normal 80.0-100.0 [facility] Comment on above: Order Comment: Speci men Type: BLOOD SPECIMEN Ordering Facility: [facility] Address: [address] [place] [address] Performed By: #### 5 8410-2 #### [facility] CLIA [id number] [address] Nucleated RBC (Bld) [#/Vol] 10*3/uL Normal <0.01 [facility] Comment on above: Order Comment: Speci men Type: BLOOD SPECIMEN Ordering Facility: [facility] Address: [address] [place] [address] Performed By: #### 5 8410-2 #### [facility] CLIA [id number] [address] [place] [address] [place] Platelet mean volume (Bld) [Entitic vol] 9.4 fL Normal 9.0-12.7 [facility] Comment on above: Order Comment: Speci men Type: BLOOD SPECIMEN Ordering Facility: [facility] Address: [address] [place] [address] Performed By: #### 5 8410-2 #### [facility] CLIA [id number] [address] [place] [address] [place] Platelets (Bld) [#/Vol] 218 10*3/uL Normal 150-400 [facility] Comment on above: Order Comment: Speci men Type: BLOOD SPECIMEN Ordering Facility: [facility] Address: [address] [place] [address] Performed By: #### 5 8410-2 #### [facility] CLIA [id number] [address] [place] [address] [place] RBC (Bld) [#/Vol] 4.81 10*6/uL Normal 4.20-6.00 [facility] Comment on above: Order Comment: Speci men Type: BLOOD SPECIMEN Ordering Facility: [facility] Address: [address] [place] [address] Performed By: #### 5 8410-2 #### [facility] CLIA [id number] [address] [place] [address] [place] WBC (Bld) [#/Vol] 5.39 10*3/uL Normal 3.70-11.00 [facility] Comment on above: Order Comment: Speci men Type: BLOOD SPECIMEN Ordering Facility: [facility] Address: [address] [place] [address] Performed By: #### 5 8410-2 #### [facility] CLIA [id number] [address] [place] [address] [place] [facility] [place] Comprehensive metabolic 2000 panelon 04-23-2023 Albumin [Mass/Vol] 4.3 g/dL Normal 3.9-4.9 [facility] Comment on above: Order Comment: Speci men Type: BLOOD SPECIMEN Ordering Facility: [facility] Address: [address] [place] [address] Performed By: #### 2 4331-1, HSTNT #### [facility] CLIA [id number] [address] [place] [address] [place] ALP [Catalytic activity/Vol] 85 U/L Normal 38-113 [facility] Comment on above: Order Comment: Speci men Type: BLOOD SPECIMEN Ordering Facility: [facility] Address: [address] [place] [address] Performed By: #### 2 4331-1, HSTNT #### [facility] CLIA [id number] [address] ALT [Catalytic activity/Vol] 23 U/L Normal 10-54 [facility] Comment on above: Order Comment: Speci men Type: BLOOD SPECIMEN Ordering Facility: [facility] Address: [address] [place] [address] Performed By: #### 2 4331-1, HSTNT #### [facility] CLIA [id number] [address] Anion gap [Moles/Vol] 11 mmol/L Normal 9-18 [facility] Comment on above: Order Comment: Speci men Type: BLOOD SPECIMEN Ordering Facility: [facility] Address: [address] [place] [address] Performed By: #### 2 4331-1, HSTNT #### [facility] CLIA [id number] [address] AST [Catalytic activity/Vol] 21 U/L Normal 14-40 [facility] Comment on above: Order Comment: Speci men Type: BLOOD SPECIMEN Ordering Facility: [facility] Address: [address] [place] [address] Performed By: #### 2 4331-1, HSTNT #### [facility] CLIA [id number] [address] [place] Bilirubin [Mass/Vol] 0.2 mg/dL Normal 0.2-1.3 [facility] Comment on above: Order Comment: Speci men Type: BLOOD SPECIMEN Ordering Facility: [facility] Address: [address] [place] [address] Performed By: #### 2 4331-1, HSTNT #### [facility] CLIA [id number] [address] [place] [address] [place] Calcium [Mass/Vol] 8.7 mg/dL Normal 8.5-10.2 [facility] Comment on above: Order Comment: Speci men Type: BLOOD SPECIMEN Ordering Facility: [facility] Address: [address] [place] [address] Performed By: #### 2 4331-1, HSTNT #### [facility] CLIA [id number] [address] [place] [address] [place] Chloride [Moles/Vol] 104 mmol/L Normal 97-105 [facility] Comment on above: Order Comment: Speci men Type: BLOOD SPECIMEN Ordering Facility: [facility] Address: [address] [place] [address] Performed By: #### 2 4331-1, HSTNT #### [facility] CLIA [id number] [address] [place] [address] [place] CO2 [Moles/Vol] 23 mmol/L Normal 22-30 [facility] Comment on above: Order Comment: Speci men Type: BLOOD SPECIMEN Ordering Facility: [facility] Address: [address] [place] [address] Performed By: #### 2 4331-1, HSTNT #### [facility] CLIA [id number] [address] [place] [address] [place] Creatinine [Mass/Vol] 0.79 mg/dL Normal 0.73-1.22 [facility] Comment on above: Order Comment: Speci men Type: BLOOD SPECIMEN Ordering Facility: [facility] Address: [address] [place] [address] Performed By: #### 2 4331-1, HSTNT #### [facility] CLIA [id number] [address] [place] [address] [place] Creatinine and Glomerular filtration rate.predicted panel (S/P/Bld) 108 mL/min/1.73m??? Normal >=60 [facility] Comment on above: Order Comment: Shellie ortega Type: BLOOD SPECIMEN Ordering Facility: [facility] Address: [address] [place] [address] Result Comment: Liana mated Glomerular Filtration Rate (eGFR) is calculated using the 2020 CKD-EPI creatinine equation. This equation utilizes serum creatinine, sex, and age as parameters. The creatinine assay has traceable calibration to isotope dilution-mass spectrometry. Refer to KDIGO guidelines for clinical interpretation. In patients with unstable renal function, e.g. those with acute kidney injury, the eGFR may not accurately reflect actual GFR. Performed By: #### 2 4331-1, HSTNT #### [facility] CLIA [id number] [address] [place] [address] [place] Glucose [Mass/Vol] 298 mg/dL High 74-99 [facility] Comment on above: Order Comment: Shellie ortega Type: BLOOD SPECIMEN Ordering Facility: [facility] Address: [address] [place] [address] Result Comment: The [place] Diabetes Association (ADA) provides guidance for cutoff values for fasting glucose and random glucose. The ADA defines fasting as no caloric intake for at least 8 hours. Fasting plasma glucose results between 100 to 125 mg/dL indicate increased risk for diabetes (prediabetes). Fasting plasma glucose results greater than or equal to 126 mg/dL meet the criteria for diagnosis of diabetes. In the absence of unequivocal hyperglycemia, results should be confirmed by repeat testing. In a patient with classic symptoms of hyperglycemia or hyperglycemic crisis, random plasma glucose results greater than or equal to 200 mg/dL meet the criteria for diagnosis of diabetes. Reference: Standards of Medical Care in Diabetes 2016, [place] [employer]. Diabetes Care. 2016.39(Suppl 1). Performed By: #### 2 4331-1, HSTNT #### [facility] CLIA [id number] [address] [place] [address] [place] Potassium [Moles/Vol] 4.6 mmol/L Normal 3.7-5.1 [facility] Comment on above: Order Comment: Shellie ortega Type: BLOOD SPECIMEN Ordering Facility: [facility] Address: [address] [place], [place] [address] [address] Performed By: #### 2 4331-1, HSTNT #### [facility] CLIA [id number] [address] [place] Protein [Mass/Vol] 7.5 g/dL Normal 6.3-8.0 [facility] Comment on above: Order Comment: Speci men Type: BLOOD SPECIMEN Ordering Facility: [facility] Address: [address] [place] [address] Performed By: #### 2 4331-1, HSTNT #### [facility] CLIA [id number] [address] [place] [address] [place] Sodium [Moles/Vol] 138 mmol/L Normal 136-144 [facility] Comment on above: Order Comment: Nancyi men Type: BLOOD SPECIMEN Ordering Facility: [facility] Address: [address] [place] [address] Performed By: #### 2 4331-1, HSTNT #### [facility] CLIA [id number] [address] [place] [address] [place] Urea nitrogen [Mass/Vol] 20 mg/dL Normal 9-24 [facility] Comment on above: Order Comment: Nancyi men Type: BLOOD SPECIMEN Ordering Facility: [facility] Address: Jen[address] [facility] [address] Performed By: #### 2 4331-1, HSTNT #### [facility] CLIA [id number] [address] [place] ECG COMPLETEon 04-23-2023 ECG COMPLETE Ventricular Rate : 7 4 BPM Atrial Rate : 74 BPM P-R Interval : 182 ms QRS Duration : 100 ms Q-T Interval : 384 ms QTC Calculation(Bazett) : 426 ms Calculated P [place] : 58 degrees Calculated R [place] : 12 degrees Calculated T [place] : 36 degrees SINUS RHYTHM WITH OCCASIONAL PREMATURE VENTRICULAR COMPLEXES POSSIBLE INFERIOR INFARCT , AGE UNDETERMINED ABNORMAL ECG WHEN COMPARED WITH ECG OF 23-APR-2023 12:05, BORDERLINE CRITERIA FOR INFERIOR INFARCT ARE NOW PRESENT Confirmed by MD DAILEY GREGORY () on 04/26/2023 1:44:36 PM NAME : SIVAN TAMAYO PID : [id number] : 1970 Gender : Male Race : ORD : [id number] Procedure Date : Apr 23 2023 20:20:17 Edit Date : Apr 26 2023 13:44:37 Diagnosis: SINUS RHYTHM WITH OCCASIONAL PREMATURE VENTRICULAR COMPLEXES POSSIBLE INFERIOR INFARCT , AGE UNDETERMINED ABNORMAL ECG WHEN COMPARED WITH ECG OF 23-APR-2023 12:05, BORDERLINE CRITERIA FOR INFERIOR INFARCT ARE NOW PRESENT Confirmed by MD DAILEY GREGORY ([id number]) on 04/26/2023 1:44:36 PM Test Reason : Chest Pain Location : 16 : 4S 400-2 Overread By : MD DAILEY GREGORY Edited By : MD DAILEY GREGORY Referred By : , Acquired by : [id number], [facility] ECG COMPLETE Ventricular Rate : 8 0 BPM Atrial Rate : 80 BPM P-R Interval : 162 ms QRS Duration : 92 ms Q-T Interval : 370 ms QTC Calculation(Bazett) : 426 ms Calculated P [place] : 28 degrees Calculated R [place] : -12 degrees Calculated T [place] : 16 degrees SINUS RHYTHM WITH OCCASIONAL PREMATURE VENTRICULAR COMPLEXES OTHERWISE NORMAL ECG 1207 Confirmed by DO NAGY MICHELLE ([id number]), publishing editor Vivi Livingston ([id number]) on 04/23/2023 3:05:46 PM NAME : SIVAN TAMAYO PID : [id number] : 1970 Gender : Male Race : ORD : [id number] Procedure Date : Apr 23 2023 12:05:42 Edit Date : Apr 23 2023 15:05:51 Diagnosis: SINUS RHYTHM WITH OCCASIONAL PREMATURE VENTRICULAR COMPLEXES OTHERWISE NORMAL ECG 1207 Confirmed by DO NAGY MICHELLE ([id number]), publishing editor Vivi Livingston ([id number]) on 04/23/2023 3:05:46 PM Test Reason : Chest Pain Location : 1 : ER ED Overread By : DO NAGY MICHELLE Edited By : Vivi Livingston Referred By : , Acquired by : eitan [facility] ED NOTEon 04-23-2023 ED NOTE HNO ID: [id number] Author: Andrey Esquivel RN Service: ? Author Type: Registered Nurse Type: ED Notes Filed: 04/23/2023 3:58 PM Note Text: Heads up called to executive secretary for ready bed 400-2. [facility] ED NOTE HNO ID: [id number] Author: Meera Man RN Service: ? Author Type: Registered Nurse Type: ED Notes Filed: 04/23/2023 12:02 PM Note Text: Pt to ED with c/o chest pain and palpitations yesterday while playing pickleball, and today some discomfort while walking this am around 0530. Pt denies SOB, does report feeling fatigued and ?lightheaded with episode yesterday. Denies pain at time of triage. Normal [facility] ED PROV NOTEon 04-23-2023 ED PROV NOTE HNO ID: [id number] Author: Enoc Mancini MD Service: ? Author Type: Physician Type: ED Provider Notes Filed: 04/23/2023 1:24 PM Note Text: ED Provider Note Patient Name: Sivan Tamayo : 1970 SERVICE DATE: 04/23/23 History Patient presents with: Chest Pain Palpitations: Patient resenting for evaluation secondary to chest pain palpitations. Patient reports that yesterday he was playing pickle ball, had been playing for around an hour or so and had a sudden onset of very sharp left-sided chest pain. Patient significant other states that it was associated with him being pale and diaphoretic lasted about 2 minutes with associated shortness of breath and then spontaneously resolved. Patient reports that he felt well throughout the course of the day yesterday, but today went for a 3 mile walk and started to notice the pain was reemerging. Was not as intense as it was yesterday. Patient has a family history of cardiovascular disease, he personally has a history of diabetes and hypertension. No DVT or PE risk factors. Review of systems otherwise negative. PAST MEDICAL HISTORY Diagnosis Date ADD (attention deficit disorder) 08/28/2011 Diabetes (HCC) Hypertension 08/28/2011 PAST SURGICAL HISTORY Procedure Laterality Date ARTHROSCOPY KNEE DIAGNOSTIC W/WO SYNOVIAL BX SPX Left 2014 meniscus OSTECTOMY CALCANEUS SPUR W/WO PLNTAR FASCIAL RLS Left REPAIR NASAL SEPTUM PERFORATN devation REPAIR UMBILICAL HERNIA 01/08/16 FAMILY HISTORY Problem Relation Age of Onset Diabetes Mother Lung Cancer Mother Amblyopia Father other (gastric CA) Father Diabetes Brother Cataract Brother Social History Tobacco Use Smoking status: Never Smokeless tobacco: Never Vaping Use Vaping Use: Never used Substance and Sexual Activity Alcohol use: No Drug use: No Sexual activity: Yes Partners: Female ALLERGIES No Known Allergies Review of Systems Constitutional: Positive for diaphoresis. Negative for activity change and fever. HENT: Negative for rhinorrhea and sore throat. Respiratory: Positive for shortness of breath. Negative for cough. Cardiovascular: Positive for chest pain. Gastrointestinal: Negative for abdominal pain, diarrhea, nausea and vomiting. Genitourinary: Negative for dysuria. Musculoskeletal: Negative for myalgias. Skin: Negative for rash. Neurological: Negative for weakness and numbness. Psychiatric/Behavioral : Negative for self-injury. Physical Exam Vitals [04/23/23 1200] BP Pulse Temp Temp src Resp SpO2 Weight Height 137/79 (!) 94 36.3 ?C (97.4 ?F) Temporal 16 95 % 114.3 kg (252 lb) -- Physical Exam Vitals and nursing note reviewed. Constitutional: General: He is not in acute distress. Appearance: Normal appearance. He is well-developed. HENT: Head: Normocephalic and atraumatic. Nose: Nose normal. Mouth/Throat: Mouth: Mucous membranes are moist. Eyes: Conjunctiva/sclera: Conjunctivae normal. Pupils: Pupils are equal, round, and reactive to light. Neck: Vascular: No JVD. Cardiovascular: Rate and Rhythm: Normal rate and regular rhythm. Pulses: Radial pulses are 2+ on the right side and 2+ on the left side. Dorsalis pedis pulses are 2+ on the right side and 2+ on the left side. Heart sounds: Normal heart sounds. No murmur heard. No friction rub. No gallop. Pulmonary: Effort: Pulmonary effort is normal. No respiratory distress. Breath sounds: Normal breath sounds. No wheezing or rales. Chest: Chest wall: No tenderness. Abdominal: Palpations: Abdomen is soft. There is no mass or pulsatile mass. Tenderness: There is no abdominal tenderness. Musculoskeletal: General: Normal range of motion. Cervical back: Normal range of motion. Skin: General: Skin is warm and dry. Capillary Refill: Capillary refill takes less than 2 seconds. Comments: No vesicular rash noted on the chest Neurological: Mental Status: He is alert and oriented to person, place, and time. Sensory: No sensory deficit. Psychiatric: Mood and Affect: Mood normal. Diagnostic Testing ED Labs Ordered and Reviewed COMP METABOLIC PANEL - Abnormal; Notable for the following components: Result Value Ref Range Glucose 298 (*) 74 - 99 mg/dL All other components within normal limits CBC - Normal MAGNESIUM BLD - Normal HIGH SENSITIVITY TROPONIN T (INITIAL) - Normal HIGH SENSITIVITY TROPONIN T (SECOND) Procedures ED Course / Clinical Impression Clinical Impressions as of 04/23/23 1324 Exertional chest pain Primary hypertension Type 2 diabetes mellitus without complication, without long-term current use of insulin (HCC) MDM / Disposition / Plan EKG: Sinus rhythm at [address] segments normal T waves normal intervals occasional PVCs noted no signs of acute ischemia or arrhythmia Patient presenting for evaluation secondary to chest pain. PA and lateral chest x-ray by my pe (more content not included)... Normal [facility] HIGH SENSITIVITY TROPONIN To n 04-23-2023 Troponin T.cardiac High sensitivity method [Mass/Vol] 8 ng/L Normal <12 [facility] Comment on above: Order Comment: Shellie ortega Type: BLOOD SPECIMENOrdering Facility: [facility] Address: [address] [place] [address] Result Comment: When assessing risk for acute coronary syndromes: In patients undergoing blood draw greater than or equal to 2 hours from symptom onset, with history of very low to moderate risk and non-ischemic ECG, an initial hs-Troponin T less than 12 ng/L AND a 1 hour delta hs-Troponin T less than 3 ng/L should be considered very low risk for 30 day MACE. Performed By: #### H STNT ####[facility] [id number] [address] [facility] HIGH SENSITIVITY TROPONIN T (INITIAL)on 04-23-2023 Troponin T.cardiac High sensitivity method [Mass/Vol] 8 ng/L Normal <12 [facility] Comment on above: Order Comment: Shellie [facility] Type: BLOOD SPECIMEN Ordering Facility: [facility] Address: [address] [place] [address] Result Comment: When assessing risk for acute coronary syndromes: In patients undergoing blood draw greater than or equal to 2 hours from symptom onset, with history of very low to moderate risk and non-ischemic ECG, an initial hs-Troponin T less than 12 ng/L AND a 1 hour delta hs-Troponin T less than 3 ng/L should be considered very low risk for 30 day MACE. Performed By: #### 2 4331-1, HSTNT #### [facility] CLIA [id number] [address] [place] [address] [facility] HIGH SENSITIVITY TROPONIN T (SECOND)on 04-23-2023 Troponin T.cardiac High sensitivity method [Mass/Vol] 7 ng/L Normal <12 [facility] Comment on above: Order Comment: Speci men Type: BLOOD SPECIMEN Ordering Facility: [facility] Address: [place] [address] Result Comment: When assessing risk for acute coronary syndromes: In patients undergoing blood draw greater than or equal to 2 hours from symptom onset, with history of very low to moderate risk and non-ischemic ECG, an initial hs-Troponin T less than 12 ng/L AND a 1 hour delta hs-Troponin T less than 3 ng/L should be considered very low risk for 30 day MACE. Performed By: #### 2 4331-1, HSTNT #### [facility] CLIA [id number] [address] [place] [address] [facility] HISTORY PHYSICALon HISTORY PHYSICAL HNO ID: [id number] Author: Colette Thacker MD Service: Hospital Medicine Author Type: Physician Type: HANDP Filed: 04/23/2023 10:52 PM Note Text: DEPARTMENT OF HOSPITAL MEDICINE HISTORY AND PHYSICAL EXAM SERVICE DATE: 04/23/2023 Code Status: Not on file SERVICE TIME: 10:27 PM Primary Care Physician: Wes Gates MD NIGHT AND WEEKEND COVERAGE: [facility] COVERAGE: Days: [phone], please page attending physician. Nights: [phone], please page [facility] Night coverage pager [phone]. Subjective CHIEF COMPLAINT: Exertional chest pain HPI: This is a 53 year old male who presents with a past medical history of ADD (attention deficit disorder) (08/28/2011), Diabetes (HCC), Hypertension (08/28/2011), and Obesity, patient presents now to [facility] after playing pickle ball yesterday and started having racing heart rate with left mid sternal chest pain. Today he walked 3 miles and had similar episode. The pain resolved after with rest. At age 20 patient weight 190 lbs and now 252 lbs. Been diabetic for 11 years. Has a brother that had major AMI at age 39. Patient does infrequent smoke cigars. Patient's EKG with NSR and PVC. No ST changes. HS Tropoin of 8. Admitted for r/units ACS and potentially stress test. PAST MEDICAL HISTORY Diagnosis Date ADD (attention deficit disorder) 08/28/2011 Diabetes (HCC) Hypertension 08/28/2011 Obesity PAST SURGICAL HISTORY Procedure Laterality Date ARTHROSCOPY KNEE DIAGNOSTIC W/WO SYNOVIAL BX SPX Left 2014 meniscus OSTECTOMY CALCANEUS SPUR W/WO PLNTAR FASCIAL RLS Left REPAIR NASAL SEPTUM PERFORATN devation REPAIR UMBILICAL HERNIA 01/08/16 FAMILY HISTORY Problem Relation Age of Onset Diabetes Mother Lung Cancer Mother Amblyopia Father other (gastric CA) Father Diabetes Brother Cataract Brother Coronary Artery Disease Brother Large AMI at age 39 Social History Tobacco Use Smoking status: Never Smokeless tobacco: Never Vaping Use Vaping Use: Never used Substance Use Topics Alcohol use: No Drug use: No PRIOR TO ADMISSION MEDICATIONS: glimepiride (AMARYL) 2 mg tablet, Take 1 tablet by mouth daily with breakfast., Disp: 90 tablet, Rfl: 3 pioglitazone (ACTOS) 15 mg tablet, Take 1 tablet by mouth once daily., Disp: 30 tablet, Rfl: 11 atorvastatin (LIPITOR) 20 mg tablet, Take 1 tablet by mouth daily at bedtime. For cholesterol., Disp: 90 tablet, Rfl: 3 ASHWAGANDHA EXTRACT ORAL, Take 500 mg by mouth daily at bedtime., Disp: , Rfl: Amphetamine-Dextroamph etamine (ADDERALL) 30 mg tablet, Take 1 tablet by mouth twice daily for 30 days., Disp: 60 tablet, Rfl: 0 Amphetamine-Dextroamph etamine (ADDERALL) 30 mg tablet, Take 1 tablet by mouth twice daily for 30 days. Do not start before January 20, 2023., Disp: 60 tablet, Rfl: 0 Amphetamine-Dextroamph etamine (ADDERALL) 30 mg tablet, Take 1 tablet by mouth twice daily for 30 days. Do not start before February 19, 2023., Disp: 60 tablet, Rfl: 0 ALLERGIES No Known Allergies REVIEW OF SYSTEM: PAIN ASSESSMENT: Negative for pain, history of chronic pain, or current treatment for a chronic pain condition. Chest pain as noted above GENERAL: No weight loss, malaise or fevers HEENT: Negative for frequent or significant headaches, No changes in hearing or vision, no nose bleeds or other nasal problems NECK: Negative for lumps, goiter, pain and significant neck swelling RESPIRATORY: Negative for cough, hemoptysis, wheezing, COPD, dyspnea or shortness of breath CARDIOVASCULAR: Chest pain, See HPI GI: No nausea, vomiting, or diarrhea : No history of dysuria, frequency or incontinence MUSCULOSKELETAL: Negative for joint pain or swelling, back pain or muscle pain SKIN: Negative for lesions, rash, and itching PSYCH: Negative for sleep disturbance, mood disorder and recent psychosocial stressors HEMATOLOGY/LYMPHOLOGY: Negative for prolonged bleeding, bruising easily or swollen nodes ENDOCRINE: Negative for cold or heat intolerance, polyuria, polydipsia and goiter NEURO: No history of headaches, syncope, paralysis, seizures or tremors Objective PHYSICAL EXAM: BP 142/76 Pulse 72 Temp (Src) 97.9 (Oral) Resp 16 Wt 252 lb (114.3kg) SpO2 98% O2 Therapy: Room Air Physical Exam Performed: GENERAL: Alert, no distress, cooperative, Obese SKIN: Skin color, texture, turgor normal. No rashes or lesions. HEAD/SINUSES: No significant findings EYES: PERRLA, EOMI LUNGS: Lungs clear to auscultation, Good diaphragmatic excursion CARDIAC: Normal S1 and S2; no rubs, murmurs, or gallops ABDOMEN: Abdomen soft, non-tender, BS normal, No masses or organomegaly EXTREMITIES: Extremities normal, no deformities, edema, clubbing or skin discoloration. Good capillary refill., No ulcers NEURO: Gait normal. Reflexes normal and symmetric. Sensation grossly intact, Cranial nerves II-XII intact PULSES: 2+ radial, 2+ carotid Lines, Drains, an (more content not included)... Normal [facility] Magnesium [facility] 04-23 Magnesium [Mass/Vol] 2.2 mg/dL Normal 1.7-2.3 [facility] Comment on above: Order Comment: Speci men Type: BLOOD SPECIMEN Ordering Facility: [facility] Address: [address] [place] [address] Performed By: #### 2 4331-1, HSTNT #### [facility] CLIA [id number] [address] [place] [address] [facility] XR CHEST 2V FRONTAL/LATon XR CHEST 2V FRONTAL/LAT * * *Final Report* * * DATE OF EXAM: Apr 23 2023 12:44PM MDX [id number] - XR CHEST 2V FRONTAL/LAT / PROCEDURE REASON: Chest Pain * * * * Physician Interpretation * * * * EXAMINATION: CHEST RADIOGRAPH (2 VIEW FRONTAL and LATERAL) CLINICAL HISTORY: Chest Pain MQ: [id number]_6 EXAM DATE/TIME: 04/23/2023 12:44 PM COMPARISON: No relevant prior studies available. RESULT: Lines, tubes, and devices: None. Lungs and pleura: No consolidation. No lung mass. No pleural effusion. No pneumothorax. Cardiomediastinal silhouette: Normal cardiomediastinal silhouette. Bones and soft tissues: Unremarkable. IMPRESSION: No acute radiographic abnormality. Accounts Payable Processor: DORITA Transcribe Date/Time: Apr 23 2023 12:49P Dictated by : GLADYS RAMIREZ MD This examination was interpreted and the report reviewed and electronically signed by: GLADYS RAMIREZ MD on Apr 23 2023 12:49PM EST [id number] [facility] ANES POSTPROC EVALon 023 ANES POSTPROC EVAL HNO ID: [id number] Author: Steve Sifuentes APRN.ORACLE DATABASE DEVELOPER Service: Anesthesiology Author Type: Nurse Retail Wireless Sales Representative Type: Anesthesia Postprocedure Evaluation Filed: 02/25/2023 9:43 AM Note Text: POST ANESTHESIA EVALUATION NOTE : 1970 Procedure Summary Date: 02/25/23 Room / Location: SURGERY Anesthesia Start: 917 Anesthesia Stop: 941 Procedure: COLONOSCOPY SCREENING Diagnosis: Special screening for malignant neoplasm of colon Special screening for malignant neoplasm of colon Scheduled Providers: Zahira Veliz MD; Steve Sifuentes APRN.ORACLE DATABASE DEVELOPER Responsible Provider: Steve Sifuentes APRN.ORACLE DATABASE DEVELOPER Anesthesia Type: MAC ASA Status: 2 Anesthesia Type: MAC Last Vitals Vitals Value Taken Time BP 02/25/23 0943 Temp 02/25/23 0943 Pulse 67 02/25/23 0942 Resp 13 02/25/23 0942 SpO2 97 % 02/25/23 0942 Vitals shown include unvalidated device data. Post Anesthesia Patient Status Patient Evaluation: PACU. Anticipated Disposition: phase 2 then home. Neurological Status: aware and responsive. Pulmonary Status: breathing comfortably on room air Airway Control: returned to baseline unsupported. Cardiovascular Status: stable. Pain Management: clinically adequate Postoperative Hydration: acceptable. Intraoperative Events: no significant anesthesia events Post Operative Nausea/Vomiting Status: no significant post operative nausea or vomiting Recommendation: continue current plan of care. Anesthesia Observations No Documentation SIGNATURE: Steve Sifuentes APRN.ORACLE DATABASE DEVELOPER PATIENT NAME: Sivan Tamayo DATE: February 25, 2023 TIME: 9:43 AM CSN: [id number] [facility] ANES PRE-OPon 02-25-2023 ANES PRE-OP HNO ID: [id number] Author: Steve Sifuentes APRN.ORACLE DATABASE DEVELOPER Service: Anesthesiology Author Type: Nurse Retail Wireless Sales Representative Type: Anesthesia Preprocedure Evaluation Filed: 02/25/2023 9:11 AM Note Text: ANESTHESIOLOGY DAY OF SURGERY NOTE : 1970 Procedure Information Date/Time: 02/25/2345 Scheduled providers: Zahira Veliz MD; Steve Sifuentes APRN.ORACLE DATABASE DEVELOPER Procedure: COLONOSCOPY SCREENING Location: LD SURGERY Estimated body mass index is 34.87 kg/m? as calculated from the following: Height as of 01/21/23: 180.3 cm (5' 11). Weight as of 01/21/23: 113.4 kg (250 lb). Most recent hematocrit and potassium results: Hematocrit 45.4 03/17/2022 Potassium 4.4 03/17/2022 Relevant Problems CARDIO (+) Hypertension ENDO (+) Type 2 diabetes mellitus without complication (HCC) PULMONARY (+) Mild intermittent asthma without complication I - PHYSICAL EVALUATION AIRWAY Patient intubated: No. Tracheostomy tube not present Mallampati: II. TM distance: >3 FB. Neck ROM: full ROM without neurological symptoms. Mouth opening: adequate. Short neck: no. Thick neck: no Sarabia present: yes Lip Bite Test: I Microretrognathia/Micr onagthia/Recessed Chin: No DENTAL Dental findings: teeth intact. Additional exam findings: no II - ANESTHESIA PLAN ASA Score: 2 Anesthetic Plan: MAC The patient is not a current smoker. NPO Status: adequate Beta Inessa Administration of chronic beta inessa medication not planned. Monitoring Plan Monitoring plan: standard ASA. Post Procedure Analgesic Plan Postoperative analgesic plan: per surgical service. Informed Consent Anesthetic risks, benefits, alternatives, personnel and consent discussed: yes. Patient / Responsible Libertarian agrees to proceed: yes Patient / Surrogate agrees to blood products: blood products not planned DNR status reviewed with patient and/or family prior to surgery. patient elects to suspend DNR status in the perioperative setting (Full Code). Significant changes in the patient condition since the History and Physical, not otherwise documented in primary service progress note: no. Potential Anesthesia issues that may suggest increased risk of complications or contraindication to planned procedure: none. Discussed the possibility of lip / dental damage: no Vitals Value Taken Time BP 155/93 02/25/23 0854 Pulse 66 02/25/23 0854 Resp 12 02/25/2354 Temp 35.7 ?C (96.2 ?F) 02/25/23 0854 SpO2 95 % 02/25/23 0854 Facility-Administered Medications as of 02/25/2023 Medication Dose Route Frequency - lidocaine (PF) 10 mg/mL (1 %) 1-2 mg injection (XYLOCAINE) 0.1-0.2 mL INTRADERMAL PRN - lactated ringers iv infusion 75 mL/hr INTRAVENOUS CONTINUOUS Outpatient Medications as of 02/25/2023 Medication Sig - glimepiride (AMARYL) 2 mg tablet Take 1 tablet by mouth daily with breakfast. - Amphetamine-Dextroamph etamine (ADDERALL) 30 mg tablet Take 1 tablet by mouth twice daily for 30 days. Do not start before February 19, 2023. - pioglitazone (ACTOS) 15 mg tablet Take 1 tablet by mouth once daily. - ASHWAGANDHA EXTRACT ORAL Take 500 mg by mouth daily at bedtime. - Amphetamine-Dextroamph etamine (ADDERALL) 30 mg tablet Take 1 tablet by mouth twice daily for 30 days. - Amphetamine-Dextroamph etamine (ADDERALL) 30 mg tablet Take 1 tablet by mouth twice daily for 30 days. Do not start before January 20, 2023. - atorvastatin (LIPITOR) 20 mg tablet Take 1 tablet by mouth daily at bedtime. For cholesterol. I have interviewed and examined the patient. I have reviewed the medical record and/or the pre-anesthesia evaluation, pertinent labs, and test results. This contains updated information obtained within 48 hours of Surgery/Procedure. SIGNATURE: Steve Sifuentes APRN.CRNA PATIENT NAME: Sivan Tamayo DATE: February 25, 2023 TIME: 9:10 AM CSN: [id number] [facility] BRIEF OP NOTon 02-25-2023 BRIEF OP NOT HNO ID: [id number] Author: Zahira Veliz MD Service: General Surgery Author Type: Physician Type: Brief Op Note Filed: 02/25/2023 9:42 AM Note Text: BRIEF OPERATIVE NOTE SURGERY DATE: 02/25/2023 Incision/Procedure Start Time: 9:22 cecal intubation time: 9:24 Incision Close/Procedure End Time: 9:37 Surgeon(s)/Procedurali st(s) and Outpatient Surgery Rn(s): Jose Alfredo Procedures: Screening colonoscopy Anesthesia: MAC Findings: hemorrhoids Estimated Blood Loss: 0 ml Specimens: None Complications: None Closure Technique: Primary Preop Diagnosis: screening for colon cancer Postop Diagnosis: hemorrhoids SIGNATURE: Zahira Veliz MD PATIENT NAME: Sivan Tamayo DATE: February 25, 2023 TIME: 9:41 AM Acct: [id number] [facility] HISTORY PHYSICALon HISTORY PHYSICAL HNO ID: [id number] Author: Zahira Veliz MD Service: General Surgery Author Type: Physician Type: HANDP Filed: 02/25/2023 9:09 AM Note Text: HISTORY AND PHYSICAL Sivan Tamayo 1970 REFERRING PHYSICIAN: Wes Gates MD CHIEF COMPLAINT: Consult (No prior colonoscopy) HPI: The patient is a 52 year old male referred for endoscopy. Sivan notes no colon complaints. Patient denies any change in bowel habits, weight changes, blood in stools, black tarry stools or abdominal pain. Denies family history of colon issues. The patient notes no upper GI complaints. Sivan has not undergone prior endoscopy. Patient denies chest pain, shortness of breath or recent hospitalizations. Notes history of postoperative nausea, otherwise denies problems with sedation. PAST MEDICAL HISTORY PAST MEDICAL HISTORY Diagnosis Date ADD (attention deficit disorder) 08/28/2011 Diabetes (HCC) Hypertension 08/28/2011 PAST SURGICAL HISTORY PAST SURGICAL HISTORY Procedure Laterality Date ARTHROSCOPY KNEE DIAGNOSTIC W/WO SYNOVIAL BX SPX Left 2015 meniscus OSTECTOMY CALCANEUS SPUR W/WO PLNTAR FASCIAL RLS Left REPAIR NASAL SEPTUM PERFORATN devation REPAIR UMBILICAL HERNIA 01/08/16 CURRENT MEDICATIONS Current Outpatient Medications Medication Sig glimepiride (AMARYL) 2 mg tablet Take 1 tablet by mouth daily with breakfast. ASHWAGANDHA EXTRACT ORAL Take 500 mg by mouth daily at bedtime. amLODIPine (NORVASC) 2.5 mg tablet Take 1 tablet by mouth once daily. Amphetamine-Dextroamph etamine (ADDERALL) 30 mg tablet Take 1 tablet by mouth twice daily for 30 days. [START ON 01/20/2023] Amphetamine-Dextroamph etamine (ADDERALL) 30 mg tablet Take 1 tablet by mouth twice daily for 30 days. Do not start before January 20, 2023. [START ON 02/19/2023] Amphetamine-Dextroamph etamine (ADDERALL) 30 mg tablet Take 1 tablet by mouth twice daily for 30 days. Do not start before February 19, 2023. pioglitazone (ACTOS) 15 mg tablet Take 1 tablet by mouth once daily. atorvastatin (LIPITOR) 20 mg tablet Take 1 tablet by mouth daily at bedtime. For cholesterol. No current facility-administered medications for this visit. ALLERGIES: Patient has no known allergies. PERSONAL HISTORY: SOCIAL HISTORY Social History Tobacco Use Smoking status: Never Smokeless tobacco: Never Vaping Use Vaping Use: Never used Substance Use Topics Alcohol use: No Drug use: No FAMILY HISTORY: FAMILY HISTORY FAMILY HISTORY Problem Relation Age of Onset Diabetes Mother Lung Cancer Mother Amblyopia Father other (gastric CA) Father Diabetes Brother Cataract Brother REVIEW OF SYMPTOMS: The review of systems data was entered by the nurse and reviewed by mn Nursing Notes: Areli Kingsley LPN 12/25/2022 1:51 PM Signed REVIEW OF SYSTEMS: General: The patient denies fatigue, denies weight loss, denies weight gain, denies feeling hot, and denies feelings of cold. Eyes: The patient denies glaucoma, NOTES eye injury/surgery, wears glasses or contacts. Ear/Nose/Throat: The patient NOTES allergies, NOTES hayfever, denies ear infections, and denies bloody noses. Cardiovascular: The patient denies chest pain, denies heart disease, NOTES high blood pressure,denies cardiac stent, denies prior heart attack, denies irregular heart beat, NOTES high cholesterol, denies poor circulation, denies heart failure, other cardiac issues, denies claudication, NOTES cold feet, denies peripheral arterial stent. Respiratory: The patient denies tuberculosis, denies pneumonia, denies frequent cough, denies pulmonary embolism, denies shortness of breath, and denies coughing up blood. Gastrointestinal: The patient denies difficulty swallowing, denies acid reflux, denies ulcers, denies vomiting, denies jaundice/hepatitis, denies gallbladder problems, denies black or tarry stools, denies hemorrhoids, denies bleeding from rectum, denies diverticulitis, denies constipation, denies diarrhea, denies loss of stool control, and NOTES hernias. Kidney/Bladder: The patient denies kidney stones, denies urine infections, and denies bloody urine. Skin: The patient denies a history of skin cancer, denies bleeding/changing moles, and denies a history of skin rash. Neurologic: The patient denies a history of epilepsy/convulsions, denies headaches, denies head/spinal injuries, and denies stroke/TIA. Psychiatric: The patient denies psychiatric medications, denies depression, and denies voices, denies substance abuse. Endocrine: The patient denies thyroid disorders, NOTES diabetes, and denies hormonal problems. Hematologic: The patient denies a history of bruising, denies bleeding, and denies anemia, denies blood clots. Infections: The patient denies a history of measles and mumps, denies rheumatic fever, and denies sexually transmitted diseases. Musculoskeletal: The patient denies back pain/injury, denies back problems (more content not included)... Normal [facility] OPERATIVE NOon 02-25-2023 OPERATIVE NO HNO ID: [id number] Author: Zahira Veliz MD Service: General Surgery Author Type: Physician Type: Operative Report Filed: 02/26/2023 7:23 AM Note Text: [facility] - Operative Report - SIVAN Mercedes : 1970 AGE: 52. SEX: M PATIENT TYPE: O HOSP SVC: [facility] LOCATION: [facility] ATTENDING PHYSICIAN: Zahira Veliz MD CSN NUMBER: [id number] DATE OF SURGERY/PROCEDURE: 02/25/2023 INCISION/PROCEDURE START TIME: 9:22 AM INCISION CLOSE/PROCEDURE END TIME: 9:37 AM PREOPERATIVE DIAGNOSIS: Screening for colon cancer. POSTOPERATIVE DIAGNOSIS: Hemorrhoids. SURGEON: Zahira Veliz MD [employer] ATTENDANT: No Additional Staff SURGERY/PROCEDURE: Screening colonoscopy. ANESTHESIA: Monitored anesthesia care. LOCATION: [facility]. INDICATIONS: Sivan Tamayo is a 52-year-old white male, who presents for his first screening colonoscopy. He has been counseled the risks of procedure including, but not limited to infection, bleeding, perforation, GI tract, inability to complete the procedure, injury to any internal organs, etc. The patient understands and agrees to proceed. DESCRIPTION OF PROCEDURE: After informed consent was given, patient was brought to the endoscopy suite. Appropriate time-out protocol was followed. The patient was then placed under IV anesthesia by the anesthesia provider. The patient was placed in left lateral decubitus position. The endoscope was lubricated, carefully inserted in the patient's anus, and advanced into the rectum. It was then advanced to the sigmoid colon, then the left colon, past splenic flexure into transverse colon, past the hepatic flexure into the right colon and then advanced into the cecum. The cecum was identified by transillumination, confluence of teniae coli, identification of ileocecal valve, appendiceal orifice, and external palpation. The terminal ileum of the small intestine was entered. There was no evidence of any masses, polyps, or lesions in this area. The endoscope was retracted back into the cecum. There was no evidence of any masses, polyps, or lesions in the cecum. The endoscope was then slowly retracted back, so that the entire colonic mucosal surface was examined. The colon cleansing preparation was adequate. There was no evidence of any masses, polyps, or lesions in the right colon. There was no evidence of any masses, polyps, or lesions in the transverse colon. There was no evidence of any masses, polyps, or lesions in the left colon. There was no evidence of any masses, polyps, lesions in the sigmoid colon. There was no evidence of any masses or polyps in the rectum. Retroflexed view in the rectum revealed hemorrhoidal changes, but no active inflammation or bleeding. The endoscope was removed intact. Digital examination of the anal canal revealed no palpable masses. The patient tolerated the procedure well, was brought to recovery room in stable condition. ESTIMATED BLOOD LOSS: None. SPECIMENS: None. COMPLICATIONS: None. RECOMMENDATIONS: Screening colonoscopy in 10 years. Zahira Veliz MD LW:[id number] /[id number] Normal [facility] NURSING PROGon 02-24-2023 NURSING PROG HNO ID: [id number] Author: Candido Ann RN Service: ? Author Type: Registered Nurse Type: Nursing Progress Note Filed: 02/24/2023 12:58 PM Note Text: Summary: Pre-op Instruction Pt given arrival time. Pt's stated that they were unable to find the bowel prep. States that prep was started around noon. Pt instructed to continue clear liquid and finish prep prior to midnight. Pt's verbalizes understanding. Normal [facility] Hemoglobin A1con 11-08-2020 Glucose [Mass/Vol] 160 mg/dL Normal [facility] Reference Lab Comment on above: Performed By: #### L IPB, HBA1C #### [facility] Routine Lab [address] [place], [place] [address] HbA1c (Bld) [Mass fraction] 7.2 % High 4.3-5.6 [facility] Comment on above: Performed By: #### L IPB, HBA1C #### [facility]ine Lab [address] [place], [place] [address] Lipid Panel, Basicon 06-04-2 021 Cholesterol [Mass/Vol] 160 mg/dL Normal <200 [facility] Comment on above: Performed By: #### L IPB, HBA1C #### [facility]ine Lab [address] [place], [place] [address] Cholesterol in HDL [Mass/Vol] 30 mg/dL Low >39 [facility] Comment on above: Performed By: #### L IPB, HBA1C #### [facility]ine Lab [address] [place], [place] [address] Cholesterol in LDL [Mass/Vol] 87 mg/dL Normal <100 [facility] Comment on above: Performed By: #### L IPB, HBA1C #### [facility] Routine Lab [address] [place], [place] [address] Cholesterol in VLDL [Mass/Vol] 43 mg/dL High <30 [facility] Comment on above: Performed By: #### L IPB, HBA1C #### [facility] Routine Lab [address] [place], [place] [address] Cholesterol non HDL [Mass/Vol] 130 mg/dL High <130 [facility] Comment on above: Performed By: #### L IPB, HBA1C #### [facility]ine Lab [address] [place], [place] [address] LDL:HDL Ratio 2.90 High <2.54 [facility] Comment on above: Performed By: #### L IPB, HBA1C #### [facility]ine Lab [address] [place], [place] [address] TC:HDL Ratio 5.33 High <5.10 [facility] Comment on above: Performed By: #### L IPB, HBA1C #### [facility]ine Lab [address] [place], [place] [address] Triglyceride [Mass/Vol] 215 mg/dL High <150 [facility] Comment on above: Performed By: #### L IPB, HBA1C #### [facility]ine Lab [address] [place], [place] [address] Fasting Time UN Normal [facility] Lab Comment on above: Performed By: #### L IPB, HBA1C #### [facility] Routine Lab [address] [place], [place] [address] Comp Metabolic Panelon 07-10 Albumin [Mass/Vol] 4.5 g/dL Normal 3.9-4.9 [facility] Reference Lab Comment on above: Performed By: #### T SH, HBA1C, CMP, LDLDCT, LIPB, TESTO #### [facility] Routine Lab [address] [place], [place] [address] ALP [Catalytic activity/Vol] 79 U/L Normal 38-113 [facility] Lab Comment on above: Performed By: #### T SH, HBA1C, CMP, LDLDCT, LIPB, TESTO #### [facility] Routine Lab [address] [place], [place] [address] ALT [Catalytic activity/Vol] 82 U/L High 10-54 [facility] Comment on above: Performed By: #### T SH, HBA1C, CMP, LDLDCT, LIPB, TESTO #### [facility] Routine Lab [address] [place], [place] [id number] Anion gap [Moles/Vol] 14 mmol/L Normal 9-18 [facility] Lab Comment on above: Performed By: #### T SH, HBA1C, CMP, LDLDCT, LIPB, TESTO #### [facility] Routine Lab [address] [place], [place] [id number] AST [Catalytic activity/Vol] 71 U/L High 14-40 [facility] Lab Comment on above: Performed By: #### T SH, HBA1C, CMP, LDLDCT, LIPB, TESTO #### [facility] Routine Lab [address] [place], [place] [id number] Bilirubin [Mass/Vol] 0.5 mg/dL Normal 0.2-1.3 [facility] Reference Lab Comment on above: Performed By: #### T SH, HBA1C, CMP, LDLDCT, LIPB, TESTO #### [facility] Routine Lab [address] [place], [place] [address] Calcium [Mass/Vol] 9.3 mg/dL Normal 8.5-10.2 [facility] Reference Lab Comment on above: Performed By: #### T SH, HBA1C, CMP, LDLDCT, LIPB, TESTO #### [facility] Routine Lab [address] [place] [address] Chloride [Moles/Vol] 102 mmol/L Normal 97-105 [facility] Lab Comment on above: Performed By: #### T SH, HBA1C, CMP, LDLDCT, LIPB, TESTO #### [facility] Routine Lab [address] [place] [address] CO2 [Moles/Vol] 18 mmol/L Low 22-30 [facility] Lab Comment on above: Performed By: #### T SH, HBA1C, CMP, LDLDCT, LIPB, TESTO #### [facility] Routine Lab [address] [place] [address] Creatinine [Mass/Vol] 0.75 mg/dL Normal 0.73-1.22 [facility] Reference Lab Comment on above: Performed By: #### T SH, HBA1C, CMP, LDLDCT, LIPB, TESTO #### [facility] Routine Lab [address] [place] [id number] eGFR- Amer. >60 Normal [facility] Reference Lab Comment on above: Performed By: #### T SH, HBA1C, CMP, LDLDCT, LIPB, TESTO #### [facility] Routine Lab [address] [place], [place] [address] eGFR-All Other Races >60 Normal [facility] Reference Lab Comment on above: Performed By: #### T SH, HBA1C, CMP, LDLDCT, LIPB, TESTO #### [facility] Routine Lab [address] [place], [place] [address] Glucose [Mass/Vol] 190 mg/dL High 74-99 [facility] Lab Comment on above: Performed By: #### T SH, HBA1C, CMP, LDLDCT, LIPB, TESTO #### [facility] Routine Lab [address] [place], [place] [address] Potassium [Moles/Vol] 4.4 mmol/L Normal 3.7-5.1 [facility] Reference Lab Comment on above: Performed By: #### T SH, HBA1C, CMP, LDLDCT, LIPB, TESTO #### [facility] Routine Lab [address] [place], [place] [address] Protein [Mass/Vol] 7.6 g/dL Normal 6.3-8.0 [facility] Lab Comment on above: Performed By: #### T SH, HBA1C, CMP, LDLDCT, LIPB, TESTO #### [facility]ine Lab [address] [place], [place] [address] Sodium [Moles/Vol] 134 mmol/L Low 136-144 [facility] Lab Comment on above: Performed By: #### T SH, HBA1C, CMP, LDLDCT, LIPB, TESTO #### [facility] Routine Lab [address] [place], [place] [address] Urea nitrogen [Mass/Vol] 13 mg/dL Normal 9-24 [facility] Lab Comment on above: Performed By: #### T SH, HBA1C, CMP, LDLDCT, LIPB, TESTO #### [facility] Routine Lab [address] [place], [place] [address] Hemoglobin A1con 07-10-2020 Glucose [Mass/Vol] 200 mg/dL Normal [facility] Lab Comment on above: Performed By: #### T SH, HBA1C, CMP, LDLDCT, LIPB, TESTO #### [facility]ine Lab [address] [place], [place] [address] HbA1c (Bld) [Mass fraction] 8.6 % High 4.3-5.6 [facility] Comment on above: Performed By: #### T SH, HBA1C, CMP, LDLDCT, LIPB, TESTO #### [facility] Lab [address] [place], [place] [address] LDL-Chol, Directon 1 LDL-Chol, Direct 80 mg/dL Normal <100 [facility] Reference Lab Comment on above: Performed By: #### T SH, HBA1C, CMP, LDLDCT, LIPB, TESTO #### [facility]ine Lab [address] [place], [place] [address] VLDL Cholesterol 92 mg/dL High <30 [facility] Lab Comment on above: Performed By: #### T SH, HBA1C, CMP, LDLDCT, LIPB, TESTO #### [facility] Lab [address] [place], [place] [address] Lipid Panel, Basicon 021 Cholesterol [Mass/Vol] 202 mg/dL High <200 [facility] Comment on above: Performed By: #### T SH, HBA1C, CMP, LDLDCT, LIPB, TESTO #### [facility]ine Lab [address] [place], [place] [address] Cholesterol in HDL [Mass/Vol] 30 mg/dL Low >39 [facility] Comment on above: Performed By: #### T SH, HBA1C, CMP, LDLDCT, LIPB, TESTO #### [facility] Lab [address] [place], [place] [address] Cholesterol non HDL [Mass/Vol] 172 mg/dL High <130 [facility] Comment on above: Performed By: #### T SH, HBA1C, CMP, LDLDCT, LIPB, TESTO #### [facility] Lab [address] [place], [place] [address] LDL-Cholesterol LDHDNO Normal <100 [facility] Comment on above: Performed By: #### T SH, HBA1C, CMP, LDLDCT, LIPB, TESTO #### [facility] [address] [place], [place] [address] LDL:HDL Ratio Normal <2.54 [facility] Comment on above: Result Comment: Unab le to Reference: 1. National Cholesterol Education Program ATP III Guideline At-A-Glance Quick Desk Reference: National Heart, Lung, and Blood Wrens. National Institutes of Health. 2001: [facility] Publication No. . 2. An International Atherosclerosis Society position paper: global recommendations for the management of dyslipidemia: executive summary, Atherosclerosis. 2014: 232(2):410-413. calculate due Reference: 1. National Cholesterol Education Program ATP III Guideline At-A-Glance Quick Desk Reference: National Heart, Lung, and Blood Wrens. National Institutes of Health. 2000: [facility] Publication No. . 2. An International Atherosclerosis Society position paper: global recommendations for the management of dyslipidemia: executive summary, Atherosclerosis. 2014: 232(2):410-413. to elevated Reference: 1. National Cholesterol Education Program ATP III Guideline At-A-Glance Quick Desk Reference: National Heart, Lung, and Blood Wrens. National Institutes of Health. 2000: [facility] Publication No. . 2. An International Atherosclerosis Society position paper: global recommendations for the management of dyslipidemia: executive summary, Atherosclerosis. 2014: 232(2):410-413. Triglycerides. Reference: 1. National Cholesterol Education Program ATP III Guideline At-A-Glance Quick Desk Reference: National Heart, Lung, and Blood Wrens. National Institutes of Health. 2000: [facility] Publication No. . 2. An International Atherosclerosis Society position paper: global recommendations for the management of dyslipidemia: executive summary, Atherosclerosis. 2014: 232(2):410-413. Performed By: #### T SH, HBA1C, CMP, LDLDCT, LIPB, TESTO #### [facility] Lab [address] [place], [place] [address] TC:HDL Ratio 6.73 High <5.10 [facility] Comment on above: Performed By: #### T SH, HBA1C, CMP, LDLDCT, LIPB, TESTO #### [facility]ine Lab [address] [place] [id number] Triglyceride [Mass/Vol] 439 mg/dL High <150 [facility] Comment on above: Performed By: #### T SH, HBA1C, CMP, LDLDCT, LIPB, TESTO #### [facility]ine Lab [address] [place] [address] VLDL Cholesterol LDHDNO Normal <30 [facility] Reference Lab Comment on above: Performed By: #### T SH, HBA1C, CMP, LDLDCT, LIPB, TESTO #### [facility] Routine Lab [address] [place] [address] Fasting Time UN Normal [facility] Lab Comment on above: Performed By: #### T SH, HBA1C, CMP, LDLDCT, LIPB, TESTO #### [facility] Routine Lab [address] [place] [address] TSHon 07-10-2020 TSH Qn 2.570 m[IU]/L Normal 0.270-4.200 [facility] Comment on above: Performed By: #### T SH, HBA1C, CMP, LDLDCT, LIPB, TESTO #### [facility] Routine Lab [address] [place], [place] [id number] Testosteroneon 07-10-2020 Testosterone [Mass/Vol] 185 ng/dL Low 193-824 [facility] Comment on above: Performed By: #### T SH, HBA1C, CMP, LDLDCT, LIPB, TESTO #### [facility] Routine Lab [address] [place] [id number] Vital Signs Date Time Vital Sign Value Performing Clinician Perla modi 11-03-2024 11:16040 Body height 182.9 cm Preethi Causey APRN.PATIENT CASE MANAGER Work Phone: [facility] 11-03-2024 11:16-0400 Body mass index (BMI) [Ratio] 35.37 kg/m2 Preethi Causey APRN.PATIENT CASE MANAGER Work Phone: [facility] 11-03-2024 11:16-0400 Body weight 118.3 kg Preethi Causey APRN.PATIENT CASE MANAGER Work Phone: [facility] 11-03-2024 11:16-0400 Diastolic blood pressure 62 mm[Hg] Preethi Causey APRN.PATIENT CASE MANAGER Work Phone: [facility] 11-03-2024 11:16-0400 SaO2% (BldA) [Mass fraction] 96 % Preethi Causey APRN.PATIENT CASE MANAGER Work Phone: [facility] 11-03-2024 11:16-0400 Systolic blood pressure 100 mm[Hg] Preethi Causey APRN.PATIENT CASE MANAGER Work Phone: [facility] 08-14-2024 15:54-0400 Body mass index (BMI) [Ratio] 36.08 kg/m2 Wes Gates MD Work Phone: [facility] 08-14-2024 15:54-0400 Body weight 120.66 kg Wes Gates MD Work Phone: [facility] 08-14-2024 15:54-0400 Diastolic blood pressure 82 mm[Hg] Wes Gates MD Work Phone: [facility] 08-14-2024 15:54-0400 Heart rate 85 /min Wes Gates MD Work Phone: [facility] 08-14-2024 15:54-0400 SaO2% (BldA) [Mass fraction] 97 % Wes Gates MD Work Phone: [facility] 08-14-2024 15:54-0400 Systolic blood pressure 120 mm[Hg] Wes Gates MD Work Phone: [facility] 06-23-2024 10:39-0500 Body height 182.9 cm Wes Gates MD Work Phone: [facility] 06-23-2024 10:39-0500 Body mass index (BMI) [Ratio] 37.97 kg/m2 Wes Gates MD Work Phone: [facility] 06-23-2024 10:39-0500 Body weight 127 kg Wes Gates MD Work Phone: [facility] 06-23-2024 10:39-0500 Diastolic blood pressure 82 mm[Hg] Wes Gates MD Work Phone: [facility] 06-23-2024 10:39-0500 Heart rate 84 /min Wes Gates MD Work Phone: [facility] 06-23-2024 10:39-0500 SaO2% (BldA) [Mass fraction] 97 % Wes Gates MD Work Phone: [facility] 06-23-2024 10:39-0500 Systolic blood pressure 136 mm[Hg] Wes Gates MD Work Phone: [facility] 02-17-2024 09:58-0400 Body height 182.9 cm Jovanna [place] DO Work Phone: [facility] 02-17-2024 09:58-0400 Body mass index (BMI) [Ratio] 36.93 kg/m2 Jovanna [place] DO Work Phone: [facility] 02-17-2024 09:58-0400 Body weight 123.5 kg Jovanna [place] DO Work Phone: [facility] 02-17-2024 09:58-0400 Diastolic blood pressure 82 mm[Hg] Jovanna [place] DO Work Phone: [facility] 02-17-2024 09:58-0400 Heart rate 76 /min Jovanna [place] DO Work Phone: [facility] 02-17-2024 09:58-0400 SaO2% (BldA) [Mass fraction] 98 % Jovanna [place] DO Work Phone: [facility] 02-17-2024 09:58-0400 Systolic blood pressure 154 mm[Hg] Jovanna [place] DO Work Phone: [facility] 08-12-2023 10:47-0500 Body height 182.9 cm Jovanna [place] DO Work Phone: [facility] 08-12-2023 10:47-0500 Body weight 120.2 kg Jovanna [place] DO Work Phone: [facility] 08-12-2023 10:47-0500 Diastolic blood pressure 80 mm[Hg] Jovanna [place] DO Work Phone: [facility] 08-12-2023 10:47-0500 Heart rate 82 /min Jovanna [place] DO Work Phone: [facility] 08-12-2023 10:47-0500 SaO2% (BldA) [Mass fraction] 98 % Jovanna [place] DO Work Phone: [facility] 08-12-2023 10:47-0500 Systolic blood pressure 120 mm[Hg] Jovanna [place] DO Work Phone: [facility] 05-11-2023 11:06-0500 Body height 182.9 cm Haile Pollock MD Work Phone: [facility] 05-11-2023 11:06-0500 Body weight 114.31 kg Haile Pollock MD Work Phone: [facility] 05-11-2023 11:06-0500 Diastolic blood pressure 74 mm[Hg] Haile Pollock MD Work Phone: [facility] 05-11-2023 11:06-0500 Heart rate 71 /min Haile Pollock MD Work Phone: [facility] 05-11-2023 11:06-0500 Systolic blood pressure 134 mm[Hg] Haile Pollock MD Work Phone: [facility] 05-10-2023 08:51-0500 Body height 180.3 cm Wes Gates MD Work Phone: [facility] 05-10-2023 08:51-0500 Body weight 116.12 kg Wes Gates MD Work Phone: [facility] 05-10-2023 08:51-0500 Diastolic blood pressure 70 mm[Hg] Wes Gates MD Work Phone: [facility] 05-10-2023 08:51-0500 Heart rate 82 /min Wes Gates MD Work Phone: [facility] 05-10-2023 08:51-0500 SaO2% (BldA) [Mass fraction] 97 % Wes Gates MD Work Phone: [facility] 05-10-2023 08:51-0500 Systolic blood pressure 120 mm[Hg] Wes Gates MD Work Phone: [facility] 04-23-2023 10:29-0500 Body weight 114.31 kg Wes Gates MD Work Phone: [facility] 04-23-2023 10:29-0500 Diastolic blood pressure 72 mm[Hg] Wes Gates MD Work Phone: [facility] 04-23-2023 10:29-0500 Heart rate 72 /min Wes Gates MD Work Phone: [facility] 04-23-2023 10:29-0500 SaO2% (BldA) [Mass fraction] 96 % Wes Gates MD Work Phone: [facility] 04-23-2023 10:29-0500 Systolic blood pressure 118 mm[Hg] Wes Gates MD Work Phone: [facility] 01-21-2023 14:18-0400 Heart rate 90 /min Wes Gates MD Work Phone: [facility] 01-21-2023 13:44-0400 Body height 180.3 cm Wes Gates MD Work Phone: [facility] 01-21-2023 13:44-0400 Body weight 113.4 kg Wes Gates MD Work Phone: [facility] 01-21-2023 13:44-0400 Diastolic blood pressure 82 mm[Hg] Wes Gates MD Work Phone: [facility] 01-21-2023 13:44-0400 SaO2% (BldA) [Mass fraction] 96 % Wes Gates MD Work Phone: [facility] 01-21-2023 13:44-0400 Systolic blood pressure 136 mm[Hg] Wes Gates MD Work Phone: [facility] 12-21-2022 15:26-0400 Body height 180.3 cm Wes Gates MD Work Phone: [facility] 12-21-2022 15:26-0400 Body weight 111.86 kg Wes Gates MD Work Phone: [facility] 12-21-2022 15:26-0400 Diastolic blood pressure 88 mm[Hg] Wes Gates MD Work Phone: [facility] 12-21-2022 15:26-0400 Heart rate 88 /min Wes Gates MD Work Phone: [facility] 12-21-2022 15:26-0400 SaO2% (BldA) [Mass fraction] 96 % Wes Gates MD Work Phone: [facility] 12-21-2022 15:26-0400 Systolic blood pressure 146 mm[Hg] Wes Gates MD Work Phone: [facility] 06-16-2022 09:51-0500 Diastolic blood pressure 92 mm[Hg] Rani Haagen TALCER.PATIENT CASE MANAGER Work Phone: [facility] 06-16-2022 09:51-0500 Heart rate 82 /min Rani Haagen TALCER.PATIENT CASE MANAGER Work Phone: [facility] 06-16-2022 09:51-0500 Systolic blood pressure 141 mm[Hg] Rani Haagen TALCER.PATIENT CASE MANAGER Work Phone: [facility] 06-16-2022 09:40-0500 Body weight 113.4 kg Rani Haagen TALCER.PATIENT CASE MANAGER Work Phone: [facility] 06-16-2022 09:40-0500 Respiratory rate 18 /min Rani Haagen TALCER.PATIENT CASE MANAGER Work Phone: [facility] 06-16-2022 09:40-0500 SaO2% (BldA) [Mass fraction] 98 % Rani Haagen TALCER.PATIENT CASE MANAGER Work Phone: [facility] 04-21-2022 09:11-0500 Diastolic blood pressure 92 mm[Hg] Rani Haagen TALCER.PATIENT CASE MANAGER Work Phone: [facility] 04-21-2022 09:11-0500 Systolic blood pressure 161 mm[Hg] Rani Haagen TALCER.PATIENT CASE MANAGER Work Phone: [facility] 04-21-2022 08:34-0500 Body weight 116.57 kg Rani Haagen TALCER.PATIENT CASE MANAGER Work Phone: [facility] 04-21-2022 08:34-0500 Heart rate 82 /min Rani Haagen TALCER.PATIENT CASE MANAGER Work Phone: [facility] 04-21-2022 08:34-0500 Respiratory rate 18 /min Rani Haagen TALCER.PATIENT CASE MANAGER Work Phone: [facility] 04-21-2022 08:34-0500 SaO2% (BldA) [Mass fraction] 97 % Rani Haagen TALCER.PATIENT CASE MANAGER Work Phone: [facility] 03-16-2022 18:20-0400 Body weight 115.67 kg Wes Gates MD Work Phone: [facility] 03-16-2022 18:20-0400 Diastolic blood pressure 72 mm[Hg] Wes Gates MD Work Phone: [facility] 03-16-2022 18:20-0400 Heart rate 76 /min Wes Gates MD Work Phone: [facility] 03-16-2022 18:20-0400 Systolic blood pressure 132 mm[Hg] Wes Gates MD Work Phone: [facility] 10-16-2021 10:40-0400 Body weight 115.21 kg Wes Gates MD Work Phone: [facility] 10-16-2021 10:40-0400 Diastolic blood pressure 82 mm[Hg] Wes Gates MD Work Phone: [facility] 10-16-2021 10:40-0400 Heart rate 80 /min Wes Gates MD Work Phone: [facility] 10-16-2021 10:40-0400 Systolic blood pressure 138 mm[Hg] Wes Gates MD Work Phone: [facility] Encounters Encounter Date Encounter Type Care Provider Facility Start: 11-23-2024 End: 11-24-2024 ambulatory Wes Gates MD Work Phone: [facility] Comment on above: Bloodwork Start: 11-17-2024 End: 11-17-2024 ambulatory Devaughn Chen [facility] Comment on above: Acute pain of right shoulder (Primary Dx); Bilateral hip pain Start: 11-03-2024 End: 11-03-2024 Patient encounter procedure Preethi Causey APRN.PATIENT CASE MANAGER Work Phone: Cardiology Comment on above: Mixed hyperlipidemia (Primary Dx); Vitamin D deficiency; Vitamin B12 deficiency; Hypothyroidism, unspecified type; Iron deficiency anemia, unspecified iron deficiency anemia type Start: 11-03-2024 End: 11-03-2024 ambulatory PREETHI CAUSEY Facility:[facility] Start: 10-24-2024 End: 10-24-2024 ambulatory [facility] Facility:[facility] Start: 10-06-2024 End: 10-06-2024 ambulatory Wes Gates MD Work Phone: [facility] Comment on above: Question for Sivan Start: 10-03-2024 End: 10-03-2024 ambulatory Devaughn Chen PT [facility] Comment on above: Acute pain of right shoulder (Primary Dx); Bilateral hip pain Start: 10-03-2024 End: 10-03-2024 ambulatory DEVAUHGN GUSTAVO Facility:[facility] Start: 09-19-2024 End: 09-19-2024 ambulatory Devaughn Chen PT [facility] Comment on above: Acute pain of right shoulder (Primary Dx); Bilateral hip pain Start: 09-13-2024 End: 09-13-2024 Refill Wes Gates MD Work Phone: [facility] Comment on above: Refill Request Start: 09-05-2024 End: 09-05-2024 ambulatory Devaughn Chen PT [facility] Comment on above: Acute pain of right shoulder (Primary Dx); Bilateral hip pain Start: 08-31-2024 End: 08-31-2024 ambulatory Devaughn Chen PT [facility] Comment on above: Acute pain of right shoulder (Primary Dx); Bilateral hip pain Start: 08-28-2024 End: 08-28-2024 Refill Wes Gates MD Work Phone: [facility] Comment on above: Refill Request Medication Problem Start: 08-17-2024 End: 10-17-2024 Follow-up encounter Wes Gates MD Work Phone: Pulmonology [facility] Start: 08-14-2024 End: 08-14-2024 Subsequent hospital visit by physician [facility] Work Phone: Radiology Comment on above: Bilateral hip pain [ M25.551, M25.552] Start: 08-14-2024 End: 08-14-2024 ambulatory WES GATES Facility:[facility] Start: 08-14-2024 End: 08-14-2024 Patient encounter procedure Wes Gates MD Work Phone: [facility] Comment on above: Bilateral hip pain ( Primary Dx); Type 2 diabetes mellitus without complication, without long-term current use of insulin (HCC); Acute pain of right shoulder Start: 07-26-2024 End: 07-26-2024 Refill Haile Pollock MD Work Phone: [facility] Comment on above: Refill Request (ator vastatin (LIPITOR)) Start: 07-21-2024 End: 07-21-2024 ambulatory Wes Gates MD Work Phone: [facility] Comment on above: Blood sugar numbers Start: 07-19-2024 End: 07-19-2024 Refill Jovanna Dunlap Work Phone: Cardiology Comment on above: Refill Request Start: 07-06-2024 End: 07-06-2024 ambulatory WES GATES Facility: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 Start: 06-19-2024 End: 06-19-2024 ambulatory WES GATES Facility:[facility] Start: 06-16-2024 End: 06-16-2024 ambulatory Wes Gates MD Work Phone: Family [facility] [place] Start: 06-16-2024 End: 06-16-2024 Patient encounter procedure Wes Gates MD Work Phone: [facility] [place] Comment on above: Upcoming appointment . Start: 06-06-2024 End: 06-06-2024 E-mail encounter from caregiver Jovanna Dunlap DO Work Phone: Cardiology Start: 06-06-2024 End: 06-06-2024 Patient encounter procedure Jovanna Dunlap DO Work Phone: Cardiology Comment on above: 08/17 Appointment Start: 03-02-2024 End: 03-02-2024 ambulatory Wes Gates MD Work Phone: [facility] [place] Comment on above: Wrong glucose strips Start: 02-25-2024 End: 02-25-2024 ambulatory Wes Gates MD Work Phone: [facility] [place] Comment on above: Need a new glucose m onitor Start: 02-17-2024 End: 02-17-2024 ambulatory WES GATES Facility: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) (Primary Dx); Essential hypertension; Mixed hyperlipidemia Start: 02-06-2024 End: 02-08-2024 Refill Haile Pollock MD Work Phone: [facility] Comment on above: Refill Request Start: 01-21-2024 End: 01-28-2024 Telephone encounter Jovanna Stubbs Amyogesh HAMMOND Work Phone: Cardiology Comment on above: Patient Update Start: 09-08-2023 Refill Wes Gates MD Work Phone: [facility] [place] Comment on above: Refill Request Start: 08-12-2023 End: 08-12-2023 Patient encounter procedure Jovanna Dunlap Work Phone: Cardiology Comment on above: 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) (Primary Dx); Essential hypertension; Mixed hyperlipidemia Start: 07-29-2023 Telephone encounter Wes Gates MD Work Phone: [facility] [place] Comment on above: Results Start: 07-28-2023 ambulatory Wes Gates MD Work Phone: [facility] [place] Comment on above: Medication question Start: 05-17-2023 Telephone encounter Haile borden MD Work Phone: Cardiology Start: 05-12-2023 ambulatory Kenzie Henriquez RN Work Phone: [facility] Start: 05-12-2023 Follow-up encounter Kenzie Henriquez RN Work Phone: [employer] Comment on above: Transition Of Care ( TCM Follow Up/) Start: 05-11-2023 End: 05-11-2023 Patient encounter procedure Haile Pollock MD Work Phone: [facility] Comment on above: 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) (Primary Dx); Essential hypertension; Obesity, Class I, BMI 30-34.9; S/P angioplasty with stent; Type 2 diabetes mellitus without complication, without long-term current use of insulin (HCC) Start: 05-10-2023 End: 05-10-2023 Patient encounter procedure Wes Gates MD Work Phone: [facility] [place] Comment on above: 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) (Primary Dx); Essential hypertension; Mixed hyperlipidemia; Type 2 diabetes mellitus without complication, without long-term current use of insulin (HCC); S/P angioplasty with stent Start: 04-30-2023 Patient Outreach Kenzie Henriquez RN Work Phone: [employer] Comment on above: Transition Of Care ( TCM Initial Hospital Discharge 04/29/2023) Start: 04-29-2023 Telephone encounter Anneliese hughes APRN.CNP Work Phone: Provider Adult Comment on above: Appointment Start: 04-27-2023 End: 04-29-2023 Evaluation and management of inpatient HAILE POLLOCK Facility:[facility] Start: 04-27-2023 Telephone encounter Colette young MD Work Phone: [place] Provider Adult Comment on above: Hospital Admission ( Hospital transfer from [facility] to [facility].) Start: 04-23-2023 End: 04-27-2023 ambulatory GALILEO REAVES Facility:[facility] Start: 04-23-2023 End: 04-23-2023 Patient encounter procedure Wes Gates MD Work Phone: [facility] [place] Comment on above: Chest pain, unspecif ied type (Primary Dx); Primary hypertension; Mild intermittent asthma without complication; Type 2 diabetes mellitus without complication, without long-term current use of insulin ([facility]) Start: 02-25-2023 End: 02-25-2023 ambulatory FABIANA LUCAS Facility:[facility] Start: 02-18-2023 ambulatory Zahira collado MD Work Phone: LD SURGERY Start: 01-21-2023 Telephone encounter Acosta Dixon Comment on above: prescription assista nce Start: 01-21-2023 End: 01-21-2023 Patient encounter procedure Wes Gates MD Work Phone: [facility] Comment on above: Primary hypertension (Primary Dx); Type 2 diabetes mellitus without complication, without long-term current use of insulin (HCC) Start: 12-22-2022 Telephone encounter Wes Gates MD Work Phone: [facility] Comment on above: Results Start: 12-21-2022 End: 12-21-2022 Patient encounter procedure Wes Gates MD Work Phone: [facility] Comment on above: Primary hypertension (Primary Dx); Screening for colon cancer; Type 2 diabetes mellitus without complication, without long-term current use of insulin (HCC); Attention deficit disorder, unspecified hyperactivity presence; Hyperlipidemia, unspecified hyperlipidemia type; Medication monitoring encounter Start: 09-04-2022 Refill Steve Alvarez DO Work Phone: [facility] Start: 09-01-2022 Telephone encounter Wes Gates MD Work Phone: [facility] Comment on above: Patient Update Start: 09-01-2022 End: 09-01-2022 Patient encounter procedure Jacob Mays OD Work Phone: Ophthalmology Comment on above: Type 2 diabetes ramu itus without retinopathy (HCC) (Primary Dx); Dry eye syndrome of bilateral lacrimal glands; Regular astigmatism of both eyes; Presbyopia Start: 07-16-2022 Refill Steve Alvarez DO Work Phone: [facility] [place] Start: 06-16-2022 End: 06-16-2022 Office outpatient visit 25 minutes Rani Perales APRN.CNP Work Phone: [facility] [place] Comment on above: Primary hypertension (Primary Dx); Type 2 diabetes mellitus without complication, without long-term current use of insulin (HCC); Screening for colon cancer; Type 2 diabetes mellitus with diabetic neuropathy, without long-term current use of insulin (HCC) Start: 06-09-2022 Refill Steve Alvarez DO Work Phone: [facility] Comment on above: Refill Request Start: 05-13-2022 Refill Wes Gates MD Work Phone: [facility] Comment on above: Refill Request Start: 04-21-2022 End: 04-21-2022 Office outpatient visit 25 minutes Rani Perales APRN.CNP Work Phone: [facility] [place] Comment on above: Primary hypertension (Primary Dx); Type 2 diabetes mellitus without complication, without long-term current use of insulin (HCC); Mixed hyperlipidemia Start: 04-20-2022 ambulatory Wes Gates MD Work Phone: [facility] [place] Start: 04-20-2022 Patient encounter procedure Wes Gates MD Work Phone: [facility] [place] Comment on above: Office visits Start: 03-18-2022 Telephone encounter Wes Gates MD Work Phone: [facility] [place] Comment on above: Results Start: 03-16-2022 End: 03-16-2022 Patient encounter procedure Wes Gates MD Work Phone: [facility] [place] Comment on above: Primary hypertension (Primary Dx); Type 2 diabetes mellitus without complication, without long-term current use of insulin (HCC); Muscle cramping; Chronic pain of both knees Start: 03-11-2022 Telephone encounter Wes Gates MD Work Phone: [facility] [place] Comment on above: Patient Update Start: 02-03-2022 Refill Wes Gates MD Work Phone: [facility] Comment on above: Refill Request Start: 02-02-2022 Refill Steve Alvarez DO Work Phone: [facility] [place] Start: 01-22-2022 ambulatory Wes Gates MD Work Phone: [facility] [place] Start: 01-22-2022 Patient encounter procedure Wes Gates MD Work Phone: [facility] Comment on above: My Appointment today Start: 12-31-2021 Telephone encounter Wes Gates MD Work Phone: [facility] Comment on above: Patient Update Start: 10-16-2021 End: 10-16-2021 Patient encounter procedure Wes Gates MD Work Phone: [facility] Comment on above: Primary hypertension (Primary Dx); Type 2 diabetes mellitus without complication, without long-term current use of insulin (HCC); Mixed hyperlipidemia Start: 06-09-2021 Telephone encounter Chata Lew Work Phone: [facility] Comment on above: Appointment Start: 08-29-2018 ambulatory Charan Octaviogabriela Duncan lity:[facility] Procedures Date Procedure Procedure Detail Performing Clinician Start: 06-23-2024 Adult depression scr eening assessment Wes Gates MD Work Phone: Start: 05-11-2023 Ecg routine ecg w/le ast 12 lds i&r only [facility] Provider Start: 02-25-2023 Colonoscopy Wes Martin MD Work Phone: Plan of Treatment Date Care Activity Detail Author Start: 02-25-2033 Screening for malignant neoplasm of colon [facility] Start: 11-03-2025 BP Controlled (<130/80) BP Controlled (<130/80) [facility] Start: 08-14-2025 Annual PCP Team Chronic Disease Visit Annual PCP Team Chronic Disease Visit [facility] Start: 07-10-2025 End: 07-10-2025 Patient encounter procedure 07/10/2025 1:00 PM EST Office Visit [facility] [address] [place], [place] [id number] Jacob Mays, OD [address] [place] [address] 1 YR F/U for diabetic eye exam. Ophthalmology Comment on above: 1 YR F/U for diabetic eye exam. Start: 07-06-2025 Glaucoma screening Dilated Retinal Exam [facility] Start: 06-23-2025 Annual PCP Team Chronic Disease Visit Annual PCP Team Chronic Disease Visit [facility] Start: 06-23-2025 Anxiety Screening Anxiety Screening [facility] Start: 06-23-2025 Covid-19 Vaccine ( season) Covid-19 Vaccine ( season) [facility] Comment on above: Postponed from 02/06/2024 (Declined at t his time) Start: 06-23-2025 Depression Screening Depression Screening [facility] Start: 06-23-2025 Diabetic foot examination Diabetic Foot Exam [facility] Start: 06-23-2025 Pneumococcal Vaccine: 50+ (1 of 2 - PCV) Pneumococcal Vaccine: 50+ (1 of 2 - PCV) [facility] Comment on above: Postponed from 1991 (Declined at t his time) Start: 06-19-2025 Hepatitis B screening Urine Albumin:Creatinine Ratio [facility] Start: 06-19-2025 Hepatitis B surface antibody level LDL Cholesterol [facility] Start: 05-18-2025 End: 05-18-2025 Patient encounter procedure 05/18/2025 11:30 AM EST Office Visit Cardiology [address] [id number] Preethi Causey APRN.PATIENT CASE MANAGER [address] [place] [address] 6 month follow up Cardiology Comment on above: 6 month follow up Start: 02-05-2025 Influenza vaccination Influenza Vaccine (Season Ended) [facility] Start: 12-22-2024 End: 12-22-2024 Patient encounter procedure 12/22/2024 3:40 PM EDT Office Visit [facility] [address] [place] [address] Wes Gates MD [address] [place] [address] 6 month follow up. A1c prior [facility] [place] Comment on above: 6 month follow up. A1c prior Start: 12-21-2024 End: 03-22-2025 Hemoglobin A1c in Blood HEMOGLOBIN A1C Lab Routine Type 2 diabetes mellitus without complication, without long-term current use of insulin (HCC) Expected: 12/21/2024, Expires: 03/22/2025 [facility] Work Phone: Comment on above: Expected: 12/21/2024, Expires: Start: 12-17-2024 Hemoglobin A1c measurement HbA1C [facility] Start: 12-04-2024 Influenza vaccination [facility] Comment on above: Postponed from 02/06/2024 (Declined at t his time) Start: 11-24-2024 End: 02-23-2025 Testosterone [Mass/volume] in Serum or Plasma TESTOSTERONE, TOTAL BY IMMUNOASSAY (ADULT MALES, OR INDIVIDUALS ON TESTOSTERONE THERAPY) Lab Routine Fatigue, unspecified type Expected: 11/24/2024, Expires: 02/23/2025 [facility] Work Phone: Comment on above: Expected: 11/24/2024, Expires: Start: 11-17-2024 End: 11-17-2024 ambulatory 11/17/2024 2:30 PM EDT OT/PT/Speech Visit [facility] [address] [place] [address] Devaughn Chen, PT M25.551,M25.552 (ICD-10-CM) - Bilateral hip pain [facility] Comment on above: M25.551,M25.552 (ICD-10-CM) - Bilateral hip pain Start: 11-10-2024 End: 11-10-2024 ambulatory 11/10/2024 1:45 PM EDT OT/PT/Speech Visit [facility] [address] [place] [address] Devaughn Chen, PT Bilateral hip pain [M25.551, M25.552] [facility] Comment on above: Bilateral hip pain [M25.551, M25.552] Start: 11-03-2024 End: 02-02-2025 25-hydroxyvitamin D3 [Mass/volume] in Serum or Plasma VITAMIN D 25 HYDROXY Lab Routine Vitamin D deficiency Expected: 11/03/2024, Expires: 02/02/2025 [facility] Comment on above: Expected: 11/03/2024, Expires: Start: 11-03-2024 End: 02-02-2025 Cobalamin (Vitamin B12) [Mass/volume] in Serum or Plasma VITAMIN B12 Lab Routine Vitamin B12 deficiency Expected: 11/03/2024, Expires: 02/02/2025 [facility] Comment on above: Expected: 11/03/2024, Expires: Start: 11-03-2024 End: 02-02-2025 Ferritin [Mass/volume] in Serum or Plasma FERRITIN Lab Routine Iron deficiency anemia, unspecified iron deficiency anemia type Expected: 11/03/2024, Expires: 02/02/2025 [facility] Comment on above: Expected: 11/03/2024, Expires: Start: 11-03-2024 End: 02-02-2025 Iron and Iron binding capacity panel - Serum or Plasma IRON AND TIBC Lab Routine Iron deficiency anemia, unspecified iron deficiency anemia type Expected: 11/03/2024, Expires: 02/02/2025 [facility] Comment on above: Expected: 11/03/2024, Expires: Start: 11-03-2024 End: 02-02-2025 Lipoprotein a [Mass/volume] in Serum or Plasma LIPOPROTEIN (A) Lab Routine Mixed hyperlipidemia Expected: 11/03/2024, Expires: 02/02/2025 [facility] Comment on above: Expected: 11/03/2024, Expires: Start: 11-03-2024 End: 02-02-2025 LIPOPROTEIN FRACTIONATION BY NMR WITH LIPIDS LIPOPROTEIN FRACTIONATION BY NMR WITH LIPIDS Lab Routine Mixed hyperlipidemia Expected: 11/03/2024, Expires: 02/02/2025 [facility] Work Phone: Comment on above: Expected: 11/03/2024, Expires: Start: 11-03-2024 End: 02-02-2025 Thyrotropin [Units/volume] in Serum or Plasma THYROID STIMULATING HORMONE Lab Routine Hypothyroidism, unspecified type Expected: 11/03/2024, Expires: 02/02/2025 [facility] Comment on above: Expected: 11/03/2024, Expires: Start: 11-03-2024 End: 02-02-2025 Triiodothyronine (T3) Free [Mass/volume] in Serum or Plasma T3, FREE Lab Routine Hypothyroidism, unspecified type Expected: 11/03/2024, Expires: 02/02/2025 [facility] Comment on above: Expected: 11/03/2024, Expires: Start: 11-03-2024 End: 11-03-2024 Patient encounter procedure 11/03/2024 11:30 AM EDT Office Visit Cardiology [address] [address] Preethi Causey APRN.PATIENT CASE MANAGER [address] [place] [address] Follow up Cardiology Comment on above: Follow up Start: 10-24-2024 End: 10-24-2024 ambulatory 10/24/2024 12:30 PM EDT OT/PT/Speech Visit [facility] [address] [place] [address] Devaughn Chen, PT Bilateral hip pain [M25.551, M25.552] [facility] Comment on above: Bilateral hip pain [M25.551, M25.552] Start: 10-03-2024 End: 10-03-2024 ambulatory 10/03/2024 11:30 AM EDT OT/PT/Speech Visit [facility] [address] [place] [address] Devaughn Chen, PT Bilateral hip pain [M25.551, M25.552] [facility] Comment on above: Bilateral hip pain [M25.551, M25.552] Start: 09-19-2024 End: 09-19-2024 ambulatory 09/19/2024 11:30 AM EDT OT/PT/Speech Visit [facility] [address] [place] [address] Devaughn Chen, PT Bilateral hip pain [M25.551, M25.552] [facility] Comment on above: Bilateral hip pain [M25.551, M25.552] Start: 08-31-2024 End: 08-31-2024 ambulatory 08/31/2024 11:30 AM EDT OT/PT/Speech Visit [facility] [address] [place] [address] Devaughn Chen, PT Bilateral hip pain [M25.551, M25.552] [facility] Comment on above: Bilateral hip pain [M25.551, M25.552] Start: 08-17-2024 End: 08-17-2024 Patient encounter procedure 08/17/2024 10:00 AM EDT Office Visit Cardiology [address] [id number] Jovanna Dunlap [address] [place] [address] 6 month follow up Cardiology Comment on above: 6 month follow up Start: 07-29-2024 Hepatitis B surface antibody level LDL Cholesterol [facility] Start: 07-13-2024 Annual PCP Team Chronic Disease Visit Annual PCP Team Chronic Disease Visit [facility] Start: 07-13-2024 BP Controlled (<130/80) BP Controlled (<130/80) [facility] Start: 07-13-2024 Covid-19 Vaccine (#1) Covid-19 Vaccine (#1) [facility] Comment on above: Postponed from 1972 (Declined at t his time) Start: 07-13-2024 Covid-19 Vaccine () Covid-19 Vaccine () [facility] Comment on above: Postponed from 02/05/2023 (Declined at t his time) Start: 07-13-2024 Diabetic foot examination Diabetic Foot Exam [facility] Start: 07-13-2024 Hepatitis B Vaccine (1 of 3 - 19+ 3-dose series) Hepatitis B Vaccine (1 of 3 - 19+ 3-dose series) [facility] Comment on above: Postponed from 1991 (Declined at t his time) Start: 07-13-2024 Hepatitis B Vaccine (1 of 3 - 3-dose series) Hepatitis B Vaccine (1 of 3 - 3-dose series) [facility] Comment on above: Postponed from 1972 (Declined at t his time) Start: 07-13-2024 Pneumococcal vaccination Pneumococcal Vaccine (1 of 2 - PCV) [facility] Comment on above: Postponed from 1978 (Declined at t his time) Start: 07-13-2024 Shingrix Vaccine (1 of 2) Shingrix Vaccine (1 of 2) [facility] Comment on above: Postponed from 2022 (Declined at t his time) Start: 07-13-2024 Spirometry Spirometry [facility] Comment on above: Postponed from 1990 (Declined at t his time) Start: 07-13-2024 Urine microalbumin profile DTaP,Tdap,Td Vaccine (1 - Tdap) [facility] Comment on above: Postponed from 1991 (Declined at t his time) Start: 07-06-2024 End: 07-06-2024 Patient encounter procedure 07/06/2024 9:00 AM EST Office Visit [facility] [address] [place] [address] Jacob Mays, OD [address] [place] [address] Diabetic Eye Exam Ophthalmology Comment on above: Diabetic Eye Exam Start: 06-23-2024 End: 06-23-2024 Patient encounter procedure 06/23/2024 10:40 AM EST Office Visit [facility] [place] [address] [place] [address] Wes Gates MD [address] [place] [address] 6 month follow up [facility] Comment on above: 6 month follow up Start: 06-16-2024 End: 09-15-2024 CBC W Auto Differential panel - Blood COMPLETE BLOOD COUNT AND DIFFERENTIAL Lab Routine Type 2 diabetes mellitus without complication, without long-term current use of insulin (HCC) Expected: 06/16/2024, Expires: 09/15/2024 [facility] Comment on above: Expected: 06/16/2024, Expires: Start: 06-16-2024 End: 09-15-2024 Comprehensive metabolic 2000 panel - Serum or Plasma COMPREHENSIVE METABOLIC PANEL Lab Routine Type 2 diabetes mellitus without complication, without long-term current use of insulin (HCC) Mixed hyperlipidemia Essential hypertension Expected: 06/16/2024, Expires: 09/15/2024 [facility] Work Phone: Comment on above: Expected: 06/16/2024, Expires: Start: 06-16-2024 End: 09-15-2024 Hemoglobin A1c in Blood HEMOGLOBIN A1C Lab Routine Type 2 diabetes mellitus without complication, without long-term current use of insulin (HCC) Expected: 06/16/2024, Expires: 09/15/2024 [facility] Comment on above: Expected: 06/16/2024, Expires: Start: 06-16-2024 End: 09-15-2024 Lipid 1996 panel - Serum or Plasma LIPID PANEL BASIC Lab Routine Type 2 diabetes mellitus without complication, without long-term current use of insulin (HCC) 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) Mixed hyperlipidemia Essential hypertension Expected: 06/16/2024, Expires: 09/15/2024 [facility] Comment on above: Expected: 06/16/2024, Expires: Start: 06-16-2024 End: 09-15-2024 Microalbumin/Creatinine [Mass Ratio] in Urine ALBUMIN/CREATININE RATIO, URINE Lab Routine Type 2 diabetes mellitus without complication, without long-term current use of insulin (HCC) Expected: 06/16/2024, Expires: 09/15/2024 [facility] Comment on above: Expected: 06/16/2024, Expires: Start: 05-10-2024 Annual PCP Team Chronic Disease Visit Annual PCP Team Chronic Disease Visit [facility] Start: 05-10-2024 BP Controlled (<130/80) BP Controlled (<130/80) [facility] Start: 05-10-2024 Hepatitis B screening Urine Albumin:Creatinine Ratio [facility] Start: 04-24-2024 Hepatitis B surface antibody level LDL Cholesterol [facility] Start: 04-23-2024 Annual PCP Team Chronic Disease Visit Annual PCP Team Chronic Disease Visit [facility] Start: 04-23-2024 BP Controlled (<130/80) BP Controlled (<130/80) [facility] Start: 02-17-2024 End: 02-17-2024 Patient encounter procedure 02/17/2024 10:00 AM EDT Office Visit Cardiology [facility] [address] [id number] Jovanna Dunlap [address] [place] [address] 6 month follow up Cardiology Comment on above: 6 month follow up Start: 02-06-2024 Covid-19 Vaccine ( season) Covid-19 Vaccine ( season) [facility] Start: 02-06-2024 Covid-19 Vaccine ( season) Covid-19 Vaccine () [facility] Start: 02-06-2024 Influenza vaccination [facility] Start: 01-27-2024 Hemoglobin A1c measurement HbA1C [facility] Start: 01-22-2024 ANNUAL PCP TEAM CHRONIC DISEASE VISIT ANNUAL PCP TEAM CHRONIC DISEASE VISIT [facility] Start: 12-22-2023 ANNUAL PCP TEAM CHRONIC DISEASE VISIT ANNUAL PCP TEAM CHRONIC DISEASE VISIT [facility] Start: 12-05-2023 Influenza vaccination Influenza Vaccine (#1) [facility] Comment on above: Postponed from 02/05/2023 (Declined at t his time) Start: 10-27-2023 Hemoglobin A1c measurement HbA1C [facility] Start: 10-27-2023 Hemoglobin A1c/Hemoglobin.total in Blood HbA1C [facility] Start: 09-02-2023 Glaucoma screening Dilated Retinal Exam [facility] Start: 09-02-2023 Hepatitis C antibody, confirmatory test DILATED RETINAL EXAM [facility] Start: 07-05-2023 End: 10-04-2023 Hemoglobin A1c in Blood HGB A1C Lab Routine Mixed hyperlipidemia Expected: 07/05/2023, Expires: 10/04/2023 [facility] Work Phone: Comment on above: Expected: 07/05/2023, Expires: Start: 07-05-2023 End: 10-04-2023 Hepatic function 2000 panel - Serum or Plasma HEPATIC FUNCTION PNL Lab Routine Mixed hyperlipidemia Expected: 07/05/2023, Expires: 10/04/2023 [facility] Work Phone: Comment on above: Expected: 07/05/2023, Expires: Start: 07-05-2023 End: 10-04-2023 Lipid 1996 panel - Serum or Plasma LIPID PANEL BASIC Lab Routine Type 2 diabetes mellitus without complication, without long-term current use of insulin (HCC) Expected: 07/05/2023, Expires: 10/04/2023 [facility] Work Phone: Comment on above: Expected: 07/05/2023, Expires: Start: 06-16-2023 3 comp foot exam completed DIABETIC FOOT EXAM [facility] Start: 06-16-2023 ANNUAL PCP TEAM CHRONIC DISEASE VISIT ANNUAL PCP TEAM CHRONIC DISEASE VISIT [facility] Start: 06-16-2023 COVID-19 VACCINE (#1) COVID-19 VACCINE (#1) [facility] Comment on above: Postponed from 1972 (Declined at t his time) Start: 06-16-2023 HEPATITIS B (1 of 3 - 3-dose series) HEPATITIS B (1 of 3 - 3-dose series) [facility] Comment on above: Postponed from 1972 (Declined at t his time) Start: 06-16-2023 Hepatitis B Vaccine (1 of 3 - 3-dose series) Hepatitis B Vaccine (1 of 3 - 3-dose series) [facility] Comment on above: Postponed from 1972 (Declined at t his time) Start: 06-16-2023 PNEUMOCOCCAL (1 - PCV) PNEUMOCOCCAL (1 - PCV) [facility] Comment on above: Postponed from 1978 (Declined at t his time) Start: 06-16-2023 Pneumococcal vaccination Pneumococcal Vaccine (1 - PCV) [facility] Comment on above: Postponed from 1978 (Declined at t his time) Start: 06-16-2023 SHINGRIX VACCINE (1 of 2) SHINGRIX VACCINE (1 of 2) [facility] Comment on above: Postponed from 2022 (Declined at t his time) Start: 06-16-2023 Urine microalbumin profile [facility] Comment on above: Postponed from 1991 (Declined at t his time) Start: 05-10-2023 End: 08-09-2023 Basic metabolic 2000 panel - Serum or Plasma [facility] Work Phone: Comment on above: Expected: 05/10/2023, Expires: 4 Start: 04-21-2023 ANNUAL PCP TEAM CHRONIC DISEASE VISIT ANNUAL PCP TEAM CHRONIC DISEASE VISIT [facility] Start: 03-23-2023 Hemoglobin A1c/Hemoglobin.total in Blood HBA1C [facility] Start: 03-17-2023 Hepatitis B screening URINE ALBUMIN:CREATININE RATIO [facility] Start: 03-17-2023 Hepatitis B surface antibody level LDL CHOLESTEROL [facility] Start: 03-16-2023 ANNUAL PCP TEAM CHRONIC DISEASE VISIT ANNUAL PCP TEAM CHRONIC DISEASE VISIT [facility] Start: 02-05-2023 Influenza vaccination [facility] Start: 12-21-2022 End: 02-20-2023 Hemoglobin A1c in Blood [facility] Work Phone: Comment on above: Expected: 12/21/2022, Expires: 3 Start: 12-21-2022 End: 02-20-2023 TOX SCREEN ROUT UR [facility] Work Phone: Comment on above: Expected: 12/21/2022, Expires: 3 Start: 12-04-2022 Influenza vaccination INFLUENZA (#1) [facility] Comment on above: Postponed from 02/05/2022 (Declined at t his time) Start: 10-16-2022 3 comp foot exam completed DIABETIC FOOT EXAM [facility] Start: 10-16-2022 ANNUAL PCP TEAM CHRONIC DISEASE VISIT ANNUAL PCP TEAM CHRONIC DISEASE VISIT [facility] Start: 07-05-2022 Hepatitis B screening URINE ALBUMIN:CREATININE RATIO [facility] Start: 07-05-2022 Hepatitis B surface antibody level LDL CHOLESTEROL [facility] Start: 06-17-2022 Hemoglobin A1c/Hemoglobin.total in Blood HBA1C [facility] Start: 06-16-2022 End: 08-16-2022 Hemoglobin A1c in Blood HGB A1C Lab Routine Type 2 diabetes mellitus without complication, without long-term current use of insulin (HCC) Expected: 06/16/2022, Expires: 08/16/2022 [facility] Work Phone: Comment on above: Expected: 06/16/2022, Expires: 3 Start: 06-07-2022 DEPRESSION ASSESSMENT DEPRESSION ASSESSMENT [facility] Start: 04-29-2022 End: 06-29-2022 Glucose [Mass/volume] in Serum or Plasma GLUCOSE RANDOM BLD Lab Routine Type 2 diabetes mellitus without complication, without long-term current use of insulin (HCC) Expected: 04/29/2022, Expires: 06/29/2022 [facility] Work Phone: Comment on above: Expected: 04/29/2022, Expires: 3 Start: 04-29-2022 End: 06-29-2022 Hepatic function 2000 panel - Serum or Plasma HEPATIC FUNCTION PNL Lab Routine Type 2 diabetes mellitus without complication, without long-term current use of insulin (HCC) Expected: 04/29/2022, Expires: 06/29/2022 [facility] Work Phone: Comment on above: Expected: 04/29/2022, Expires: 3 Start: 04-29-2022 End: 06-29-2022 Lipid 1996 panel - Serum or Plasma LIPID PANEL BASIC Lab Routine Type 2 diabetes mellitus without complication, without long-term current use of insulin (HCC) Expected: 04/29/2022, Expires: 06/29/2022 [facility] Work Phone: Comment on above: Expected: 04/29/2022, Expires: 3 Start: 2022 Hemoglobin A1c/Hemoglobin.total in Blood HBA1C [facility] Start: 2022 SHINGRIX VACCINE (1 of 2) SHINGRIX VACCINE (1 of 2) [facility] Start: 03-16-2022 End: 05-16-2022 ALBUMIN/CREAT RATIO RND UR ALBUMIN/CREAT RATIO RND UR Lab Routine Primary hypertension Type 2 diabetes mellitus without complication, without long-term current use of insulin (HCC) Expected: 03/16/2022, Expires: 05/16/2022 [facility] Work Phone: Comment on above: Expected: 03/16/2022, Expires: 2 Start: 03-16-2022 End: 05-16-2022 CBC W Auto Differential panel - Blood CBC + DIFF Lab Routine Primary hypertension Type 2 diabetes mellitus without complication, without long-term current use of insulin (HCC) Expected: 03/16/2022, Expires: 05/16/2022 [facility] Work Phone: Comment on above: Expected: 03/16/2022, Expires: 2 Start: 03-16-2022 End: 05-16-2022 Comprehensive metabolic 2000 panel - Serum or Plasma COMP METABOLIC PANEL Lab Routine Primary hypertension Type 2 diabetes mellitus without complication, without long-term current use of insulin (HCC) Expected: 03/16/2022, Expires: 05/16/2022 [facility] Work Phone: Comment on above: Expected: 03/16/2022, Expires: 2 Start: 03-16-2022 End: 05-16-2022 Hemoglobin A1c in Blood HGB A1C Lab Routine Primary hypertension Type 2 diabetes mellitus without complication, without long-term current use of insulin (HCC) Expected: 03/16/2022, Expires: 05/16/2022 [facility] Work Phone: Comment on above: Expected: 03/16/2022, Expires: 2 Start: 03-16-2022 End: 05-16-2022 Lipid 1996 panel - Serum or Plasma LIPID PANEL BASIC Lab Routine Primary hypertension Type 2 diabetes mellitus without complication, without long-term current use of insulin (HCC) Expected: 03/16/2022, Expires: 05/16/2022 [facility] Work Phone: Comment on above: Expected: 03/16/2022, Expires: 2 Start: 02-05-2022 Influenza vaccination [facility] Start: 12-31-2021 End: 03-02-2022 Hemoglobin A1c in Blood HGB A1C Lab Routine Type 2 diabetes mellitus without complication, without long-term current use of insulin (HCC) Expected: 12/31/2021, Expires: 03/02/2022 [facility] Work Phone: Comment on above: Expected: 12/31/2021, Expires: 2 Start: 10-16-2021 End: 12-16-2021 Basic metabolic 2000 panel - Serum or Plasma BASIC METABOLIC PNL Lab Routine Primary hypertension Expected: 10/16/2021, Expires: 12/16/2021 [facility] Work Phone: Comment on above: Expected: 10/16/2021, Expires: 2 Start: 10-16-2021 End: 12-16-2021 Hemoglobin A1c/Hemoglobin.total in Blood HGB A1C Lab Routine Type 2 diabetes mellitus without complication, without long-term current use of insulin (HCC) Expected: 10/16/2021, Expires: 12/16/2021 [facility] Work Phone: Comment on above: Expected: 10/16/2021, Expires: 2 Start: 10-16-2021 End: 12-16-2021 HEPATIC FUNCTION PNL HEPATIC FUNCTION PNL Lab Routine Mixed hyperlipidemia Expected: 10/16/2021, Expires: 12/16/2021 [facility] Work Phone: Comment on above: Expected: 10/16/2021, Expires: 2 Start: 10-16-2021 End: 12-16-2021 LIPID PANEL BASIC LIPID PANEL BASIC Lab Routine Mixed hyperlipidemia Expected: 10/16/2021, Expires: 12/16/2021 [facility] Work Phone: Comment on above: Expected: 10/16/2021, Expires: 2 Start: 10-02-2021 Hemoglobin A1c/Hemoglobin.total in Blood HBA1C [facility] Start: 08-29-2021 Hepatitis C antibody, confirmatory test DILATED RETINAL EXAM [facility] Start: 06-07-2021 DEPRESSION ASSESSMENT DEPRESSION ASSESSMENT [facility] Start: 2017 COLOGUARD (FIT-DNA) COLOGUARD (FIT-DNA) [facility] Start: 2017 Colonoscopy COLONOSCOPY [facility] Start: 2017 COLORECTAL CANCER SCREENING COLORECTAL CANCER SCREENING [facility] Start: [address] COLONOGRAPHY [facility] Start: 2017 FECAL OCCULT BLOOD FECAL OCCULT BLOOD [facility] Start: 2017 Screening for malignant neoplasm of colon [facility] Start: 2017 SIGMOIDOSCOPY SIGMOIDOSCOPY [facility] Start: 1991 HEPATITIS B (1 of 3 - Risk 3-dose series) HEPATITIS B (1 of 3 - Risk 3-dose series) [facility] Start: 1991 Hepatitis B Vaccine (1 of 3 - 19+ 3-dose series) Hepatitis B Vaccine (1 of 3 - 19+ 3-dose series) [facility] Start: 1991 Pneumococcal Vaccine: 50+ (1 of 2 - PCV) Pneumococcal Vaccine: 50+ (1 of 2 - PCV) [facility] Start: 1991 Urine microalbumin profile [facility] Start: 1990 Anxiety Screening Anxiety Screening [facility] Start: 1990 BP CONTROLLED (<130/80) BP CONTROLLED (<130/80) [facility] Start: 1990 Depression Screening Depression Screening [facility] Start: 1990 SPIROMETRY SPIROMETRY [facility] Start: 1988 ONE PNEUMOVAX PRIOR TO AGE 65 ONE PNEUMOVAX PRIOR TO AGE 65 [facility] Start: 1984 Adult depression screening assessment DEPRESSION SCREENING [facility] Start: 1978 PNEUMOCOCCAL (1 - PCV) PNEUMOCOCCAL (1 - PCV) [facility] Start: 1977 COVID-19 VACCINE (#1) COVID-19 VACCINE (#1) [facility] Start: 1972 COVID-19 VACCINE (#1) COVID-19 VACCINE (#1) [facility] Start: 1972 HEPATITIS B (1 of 3 - 3-dose series) HEPATITIS B (1 of 3 - 3-dose series) [facility] ECG COMPLETE ECG COMPLETE ECG Routine Chest pain, unspecified type Ordered: 04/23/2023 [facility] Work Phone: Comment on above: Ordered: 04/23/2023 ECG COMPLETE [facility] Work Phone: Comment on above: Ordered: 05/11/2023 End: 09-13-2025 XR HIP BILATERAL 5V PEL/AP/LAT EACH HIP XR HIP BILATERAL 5V PEL/AP/LAT EACH HIP Radiology Routine Bilateral hip pain 1 Occurrences starting 08/14/2024 until 09/13/2025 [facility] Work Phone: Comment on above: 1 Occurrences starting 08/14/2024 until 09/13/2025 XR HIP BILATERAL 5V PEL/AP/LAT EACH HIP XR HIP BILATERAL 5V PEL/AP/LAT EACH HIP Radiology Routine Bilateral hip pain 08/14/2024 4:44 PM EDT [facility] End: 09-13-2025 XR Shoulder - right 3 Views XR SHOULDER GENERAL 3V OR MORE AP/TRUE AP/OTHER RIGHT Radiology Routine Acute pain of right shoulder 1 Occurrences starting 08/14/2024 until 09/13/2025 [facility] Comment on above: 1 Occurrences starting 08/14/2024 until 09/13/2025 XR Shoulder - right 3 Views XR SHOULDER GENERAL 3V OR MORE AP/TRUE AP/OTHER RIGHT Radiology Routine Acute pain of right shoulder 08/14/2024 4:44 PM EDT [facility] Payers Date Payer Category Payer Medicaid [id number] 2023 Medicaid [id number] 2018 Self-pay 2018 Unknown [id number] Unknown [id number] Social History Date Type Detail Facility Start: 08-29-2020 End: 03-16-2022 Tobacco smoking status NHIS Never smoked tobacco [facility] Start: 10-16-2021 End: 11-03-2024 Alcohol intake Current non-drinker of alcohol (finding) [facility] Start: 08-07-2021 End: 05-18-2022 History SDOH Social Connections Phone 98 [facility] Start: 08-07-2021 End: 05-18-2022 History SDOH Social Connections Living 3 [facility] Start: 08-07-2021 End: 05-18-2022 History SDOH Physical Activity DPW 5 [facility] Start: 08-07-2021 History SDOH Physica l Activity MPS 6 [facility] Start: 08-07-2021 End: 05-18-2022 History SDOH Stress 1 [facility] Start: 08-07-2021 End: 05-18-2022 History SDOH Housing Unable to Pay 2 [facility] Start: 1970 Sex Assigned At Male C [facility] Start: 10-06-2021 End: 04-21-2022 Exposure to SARS-CoV-2 (event) Not sure [facility] Start: 08-29-2020 End: 03-16-2022 Tobacco use and exposure Smokeless tobacco non-user [facility] Start: 05-18-2022 History SDOH Physica l Activity MPS 9 [facility] Start: 05-17-2022 End: 12-25-2022 History of Social function [facility] Start: 05-17-2022 End: 12-25-2022 Social connection and isolation panel [facility] In a typical week, h ow many times do you talk on the telephone with family, friends, or neighbors? Patient refused [facility] Are you now , , , , never or living with a partner? [facility] Do you feel stress - tense, restless, nervous, or anxious, or unable to sleep at night because your mind is troubled all the time - these days [OSQ] Not at all [facility] (I/We) worried wheadam er (my/our) food would run out before (I/we) got money to buy more. DK or Refused [facility] In the past 12 month s, was there a time when you were not able to pay the mortgage or rent on time? No [facility] Start: 08-04-2021 Gender identity Identifies as male gender (finding) [facility] Start: 08-04-2021 Sexual orientation Heterosexual (quinn savage) [facility] (I/We) worried wheth er (my/our) food would run out before (I/we) got money to buy more. Never true [facility] Work Phone: Medical Equipment Procedure Code Equipment Code Equipment Origin al Text Equipment Identifier Dates Patch Ventralex St Sepra Sorbaflex 3.2in Large [place] [employer] - [id number] Start: 01-08-2016 Test blood sugar (s) 1 times daily. Dx: Type 2 DM - Uncontrolled E11.65 Insulin: No [id number], [id number], [id number] Start: 05-10-2023 End: 09-13-2024 Comment on above: Test blood sugar(s) 1 times daily. Dx: Type 2 DM - Uncontrolled E11.65 Insulin: No Goals Date Patient Goal Desired Activity /State Personal health goal Functional Status Date Assessment Result Facility 04-29-2023 Are you deaf, or do you have serious difficulty hearing No 04/29/2023 1:36 PM Kem Lira RN [facility] 04-29-2023 Are you blind, or do you have serious difficulty seeing, even when wearing glasses No 04/29/2023 1:36 PM Kem Lira RN [facility] 04-29-2023 Do you have serious difficulty walking or climbing stairs No 04/29/2023 1:36 PM Kem Lira RN [facility] 04-29-2023 Do you have difficul ty dressing or bathing No 04/29/2023 1:36 PM Kem Lira RN [facility] 04-29-2023 Because of a physica l, mental, or emotional condition, do you have difficulty doing errands alone such as visiting a physician's office or shopping No 04/29/2023 1:36 PM Kem Lira RN [facility] Mental Status Date Assessment Result Facility 04-29-2023 Because of a physica l, mental, or emotional condition, do you have serious difficulty concentrating, remembering, or making decisions No 04/29/2023 1:36 PM EST Kem Correia RN No [facility] Clinical Notes 06-09-2021 to 11-17-2024 Devaughn Chen PT - 11/17/2024 4:23 PM EDTPatient Preethi Obando APRN.GRACE - 11/03/2024 11:25 AM EDTTelephone Encounter - Ebony Valdes MA - 10/06/2024 11:47 AM EDT Note Date & Type Note Facility 11-17-2024 Note HNO ID: [id number] Author: DEVAUGHN CHEN PT Service: ? Author Type: Physical Therapist Type: Progress Notes Filed: 11/17/2024 16:25 Note Text: Episode Visit Count: 6 Therapist That Will Accept/Oversee The Plan Of Care: Devaughn Chen Start of Care Date: 08/31/24 Onset Date: 07/03/24 Plan of Care Certification Date: 11/17/24 Next Certification Due Date: 01/17/25 [facility]AB[facility]ORTS THERAPY PHYSICAL THERAPY PROGRESS REPORT PLAN OF CARE UPDATE: Assessment: Sivan Tamayo demonstrates significant improvement in rising from a chair, standing, walking, bending, heavy exertion, lifting, physical activities, recreational activities, reaching behind back, reaching overhead, and use hand with arm at shoulder level . The patient has progressed toward goals. Patient continues to present with impairments in overall function, symptom management, and tissue tenderness that interfere with . Current prognosis is Good due to: current objective clinical presentation, good overall health status, positive past response to therapy, within-session changes, good support system/ coping skills . The patient will benefit from continued skilled therapy services to meet the updated goals for this plan of care as noted below. Goals updated on 11/17/2024. Goals for Episode of Care: established 08/31/24 [place] in home exercise program. Met Patient will decrease pain rating by 2 points to meet minimal clinical important difference for numeric pain rating scale. Partially met Patient will increase active ROM of R shoulder and PROM of B hips to WNL to allow pt to to improve postural alignment and to improve performance of ADLs. Improving Patient will demonstrate increase in R shoulder ER and B hips strength to 5/5 during manual muscle testing in order to improve function for home management tasks, leisure / recreation skills, and moderate to heavy functional tasks. Improving Perform overhead motions and bending/lifting with decreased report of symptoms/pain in 4-6 weeks. Improving Perform ADLs and work tasks without pain. Partially met Time Frame for Goals and Treatment : 01/17/25 Planned Interventions, Frequency, and Duration: 1x/month, 8 weeks Total Number of Visits Planned: 2 Patient to be seen for Therapeutic exercise (95151), Manual therapy (94455), Neuromuscular re-education (93526), Therapeutic activities (56971), Self-mcfp management ([id number]), Patient/Family/Caregiver Education, Body Mechanics Training PLAN FOR NEXT VISIT: SUBJECTIVE: L sided LBP for about a month and is very tight. Worse with sitting, feels it close to the spine and further out at the top of his hip. Shoulders have been good, the 90/90 stretch seems to be helping the most. Onlt bothers him if he swings his pickleball paddle too hard. Pain: Pain Pain Level: 3 Pain Location: Low Back/Lumbar Spine - Left OBJECTIVE MEASURES WITH LEVEL OF FUNCTION: Spine Observations R Lumbar Spine Palpation Tenderness: Paraspinals L Lumbar Spine Palpation Tenderness: Paraspinals LE PROM R LE PROM: Moderate limitations in hip flexion and IR L LE PROM : Moderate limitation in hip flexion, major limitation with hip IR UE and Cervical Strength R Shoulder External Rotation: 4+/5 LE Strength R LE Strength: 5/5 grossly L LE Strength: 5/5 grossly TREATMENT: Manual Therapy: 1: Objective measures obtained 2: STM to B lumbar paraspinals/multifidi with push to tolerance Dry Needling: (1) 75 mm needle to L lumbar paraspinals with pistoning and fanning; (1) 40 mm needle to R sacral multifidi with pistoning, fanning, and periosteal pecking (2 needles, in, 2 needles out; patient reports imporved symptoms with slight tightness post session) Skilled Intervention: Manual skills to improve joint mobility, ROM, and decrease pain. Utilized anatomy knowledge of the clinician, and assessment of patient's response to intervention. Billing Manual TherapyTreatment Minutes: 14 Skilled Treatment Time Minutes (timed and untimed codes): 14 Total Session Time (minutes): 14 Session Start Time : 1348 Session Stop Time : 1402 Devaughn Gustavo, PT [facility] 11-17-2024 History of Presen t illness Narrative Episode Visit Count: 6 Therapist That Will Accept/Oversee The Plan Of Care: Devaughn Chen Start of Care Date: 08/31/24 Onset Date: 07/03/24 Plan of Care Certification Date: 11/17/24 Next Certification Due Date: 01/17/25 REHABILITATION AND SPORTS THERAPY PHYSICAL THERAPY PROGRESS REPORT PLAN OF CARE UPDATE: Assessment: Sivan Tamayo demonstrates significant improvement in rising from a chair, standing, walking, bending, heavy exertion, lifting, physical activities, recreational activities, reaching behind back, reaching overhead, and use hand with arm at shoulder level . The patient has progressed toward goals. Patient continues to present with impairments in overall function, symptom management, and tissue tenderness that interfere with . Current prognosis is Good due to: current objective clinical presentation, good overall health status, positive past response to therapy, within-session changes, good support system/ coping skills . The patient will benefit from continued skilled therapy services to meet the updated goals for this plan of care as noted below. Goals updated on 11/17/2024. Goals for Episode of Care: established 08/31/24 [place] in home exercise program. Met Patient will decrease pain rating by 2 points to meet minimal clinical important difference for numeric pain rating scale. Partially met Patient will increase active ROM of R shoulder and PROM of B hips to WNL to allow pt to to improve postural alignment and to improve performance of ADLs. Improving Patient will demonstrate increase in R shoulder ER and B hips strength to 5/5 during manual muscle testing in order to improve function for home management tasks, leisure / recreation skills, and moderate to heavy functional tasks. Improving Perform overhead motions and bending/lifting with decreased report of symptoms/pain in 4-6 weeks. Improving Perform ADLs and work tasks without pain. Partially met Time Frame for Goals and Treatment : 01/17/25 Planned Interventions, Frequency, and Duration: 1x/month, 8 weeks Total Number of Visits Planned: 2 Patient to be seen for Therapeutic exercise (68913), Manual therapy (17458), Neuromuscular re-education (97888), Therapeutic activities (89384), Self-mcfp management (85772), Patient/Family/Caregiver Education, Body Mechanics Training PLAN FOR NEXT VISIT: SUBJECTIVE: L sided LBP for about a month and is very tight. Worse with sitting, feels it close to the spine and further out at the top of his hip. Shoulders have been good, the 90/90 stretch seems to be helping the most. Onlt bothers him if he swings his pickleball paddle too hard. Pain: Pain Pain Level: 3 Pain Location: Low Back/Lumbar Spine - Left OBJECTIVE MEASURES WITH LEVEL OF FUNCTION: Spine Observations R Lumbar Spine Palpation Tenderness: Paraspinals L Lumbar Spine Palpation Tenderness: Paraspinals LE PROM R LE PROM: Moderate limitations in hip flexion and IR L LE PROM : Moderate limitation in hip flexion, major limitation with hip IR UE and Cervical Strength R Shoulder External Rotation: 4+/5 LE Strength R LE Strength: 5/5 grossly L LE Strength: 5/5 grossly TREATMENT: Manual Therapy: 1: Objective measures obtained 2: STM to B lumbar paraspinals/multifidi with push to tolerance Dry Needling: (1) 75 mm needle to L lumbar paraspinals with pistoning and fanning; (1) 40 mm needle to R sacral multifidi with pistoning, fanning, and periosteal pecking (2 needles, in, 2 needles out; patient reports imporved symptoms with slight tightness post session) Skilled Intervention: Manual skills to improve joint mobility, ROM, and decrease pain. Utilized anatomy knowledge of the clinician, and assessment of patient's response to intervention. Billing Manual TherapyTreatment Minutes: 14 Skilled Treatment Time Minutes (timed and untimed codes): 14 Total Session Time (minutes): 14 Session Start Time : 1348 Session Stop Time : 1402 Devaughn Chen PT documented in this encounter [facility] 11-03-2024 Instructions Preethi Causey APRN.PATIENT CASE MANAGER - 11/03/2024 11:41 AM EDT We discussed your cardiovascular health and follow-up care: - Your EKG and physical exam today were normal, with no swelling in your ankles and clear lungs. - You reported occasional fleeting chest pain that does not spread and is not associated with shortness of breath or lightheadedness. Please monitor this and let us know if the pain changes in pattern, becomes more frequent, lasts longer, or occurs with other symptoms. - You are currently taking Imdur (isosorbide mononitrate) 30 mg daily. Continue this medication as your blood pressure readings at home are stable. If you feel lightheaded, check your blood pressure to ensure it is not too low. - We discussed stopping atorvastatin (Lipitor) for now. Your LDL cholesterol was 64 at your last check, which is excellent. We will recheck your cholesterol in 4-5 months with an advanced NMR lipid profile to assess your LDL particle size and count. In the meantime, focus on maintaining a heart-healthy lifestyle to keep your cholesterol levels low. We discussed your dizziness and Cymbalta: - You reported dizziness that began after starting Cymbalta. Please follow up with the prescribing doctor to discuss whether this medication or its dosage needs adjustment. We discussed your blood sugar and diet: - You mentioned occasional hand tremors. Monitor your blood sugar levels when this occurs to rule out low blood sugar. - Avoid artificial sweeteners, as they are not beneficial for your health. Consider using small amounts of natural sweeteners like honey, pure maple syrup, or Allulose, a plant-based sweetener that may help lower blood sugar. We discussed your weight loss and activity: - You have lost 19 pounds since June, which is great progress. Continue your healthy eating habits. - You mentioned playing pickleball but not engaging in other physical activities. Consider incorporating regular exercise to improve your overall fitness. We discussed your sleep: - You reported occasional daytime sleepiness and a history of sleep apnea but difficulty tolerating a CPAP machine. Consider discussing updated treatment options, such as an oral appliance, with your primary care doctor. A repeat sleep study may also be beneficial. We discussed your upcoming blood work and follow-up: - Blood work is planned for January, including cholesterol, vitamin D, iron, and thyroid levels. Please complete this before February 02, as the order will on that date. - Follow up with me in 6 months to review your cholesterol results and overall health. - Schedule a follow-up with Dr. Toscano, the manufacturing sr engineer, in 1 year. Please let us know if you experience any new or worsening symptoms or have any questions before your next visit. Allulose as a sweetener Stop the atorvastatin for now Have fasting blood work including NMR lipid profile in January Follow up 6 months with Preethi Follow up [address] Matthew Causey APRN.PATIENT CASE MANAGER documented in this encounter [facility] 11-03-2024 Note HNO ID: [id number] Author: PREETHI CAUSEY APRN.CNP Service: ? Author Type: Nurse Practitioner Type: Progress Notes Filed: 11/03/2024 13:50 Note Text: [facility] Department of Cardiovascular Medicine SECTION OF CLINICAL CARDIOLOGY OUTPATIENT VISIT DATE November 03, 2024 OUTPATIENT VISIT TYPE ESTABLISHED PRIMARY CARE PHYSICIAN: Wes Gates [address] [place] [address] REFERRING PHYSICIAN: No referring provider defined for this encounter. CHIEF COMPLAINT: Follow Up (Lightheadedness since beginning Cymbalta/Occasional L Chest discomfort - same as past with Dr Dunlap/Concerned about BP being too low/And blood sugar being low recently/Only coffee this morning/EKG Today/BRIDGETT 02/17/24 Mendoza/EKG 05/11/23 /Cath 04/28/23/Echo 04/27/23/Stress 04/26/23) HISTORY OF PRESENT ILLNESS: The patient is a 54-year-old male with a history of CAD, status post three stent placements in 2022, presenting for a follow-up visit. He last saw Dr. Dunlap in February 2024. The patient reports intermittent, fleeting chest pain that is localized and non-radiating. He denies dyspnea but notes occasional dizziness, which he attributes to recent initiation of Cymbalta. He also reports episodes of hand tremors. He monitors his blood pressure at home, typically around 110/80-85?mmHg, but notes it was lower than usual today. He denies any significant issues since his last visit. He has lost approximately 19 pounds since June. He denies snoring and reports variable sleep quality, sometimes waking after four hours but generally able to return to sleep. He occasionally experiences daytime somnolence, dozing off in the afternoons. He was previously diagnosed with sleep apnea and was prescribed a CPAP machine, which he found intolerable. He uses a product called [employer] to help clear his nasal passages before sleep. He drinks coffee in the morning, which his prepares with protein and creamer. 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 He plays pickleball but does not engage in other forms of exercise and describes himself as out of shape. He is currently taking atorvastatin, isosorbide mononitrate 30?mg once daily, and Cymbalta. Subjective PAST MEDICAL HISTORY Diagnosis Date ADD (attention deficit disorder) 08/28/2011 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) Diabetes (HCC) Hypertension 08/28/2011 Mixed hyperlipidemia Obesity S/P angioplasty with stent PAST SURGICAL HISTORY Procedure Laterality Date ARTHROSCOPY KNEE DIAGNOSTIC W/WO SYNOVIAL BX SPX Left 06/07/2014 meniscus OSTECTOMY CALCANEUS SPUR W/WO PLNTAR FASCIAL RLS Left PCI/STENT 04/27/2023 [facility] 04/27/23 PCI x3 (diagonal, pda and plv1). REPAIR NASAL SEPTUM PERFORATN devation REPAIR UMBILICAL HERNIA 01/08/2016 Social History Tobacco Use Smoking status: Never Smokeless tobacco: Never Vaping Use Vaping status: Never Used Substance Use Topics Alcohol use: No Drug use: No FAMILY HISTORY Problem Relation Age of Onset Diabetes Mother Lung Cancer Mother Amblyopia Father other (gastric CA) Father Diabetes Brother Cataract Brother Coronary Artery Disease Brother Large AMI at age 39 ALLERGIES: ALLERGIES Allergen Reactions Amlodipine Other: See Comments Facial numbness MEDICATIONS: DULoxetine (CYMBALTA) 30 mg capsule Take 1 capsule by mouth once daily. clopidogrel (PLAVIX) 75 mg tablet Take 1 tablet by mouth once daily. Lancets Test blood sugar(s) 1 times daily. Dx: Type 2 DM - Uncontrolled E11.65 Insulin: No glimepiride (AMARYL) 2 mg tablet Take 1 tablet by mouth daily with breakfast. blood sugar diagnostic (BLOOD GLUCOSE TEST) test strip Test blood sugar(s) 1 times daily. Dx: Type 2 DM - Uncontrolled E11.65 Insulin: No dulaglutide (TRULICITY) 3 mg/0.5 mL pen injector Inject 3 mg subcutaneously one time a week. pioglitazone (ACTOS) 30 mg tablet Take 1 tablet by mouth once daily. meloxicam (MOBIC) 15 mg tablet Take 1 tablet by mouth once daily. atorvastatin (LIPITOR) 80 mg tablet Take 1 tablet by mouth daily at bedtime. isosorbide mononitrate ER (IMDUR) 30 mg 24 hr tablet Take 1 tablet by mouth once daily. dulaglutide (TRULICITY) 1.5 mg/0.5 mL pen injector Inject 1.5 mg subcutaneously one time a week. Inject dose once per week. Discard Pen After TRUE METRIX GLUCOSE METER as directed. aspirin 81 mg chewable tablet Take 1 tablet by mouth once daily. Objective PHYSICAL EXAMINATION: BP 100/62 (BP Position: Sitting) Ht 182.9 cm (6') Wt 118.3 kg (260 lb 12.9 oz) SpO2 96% BMI 35.37 kg/m? General: Alert AND oriented, no acute distress Skin: Normal HEENT: Pupils equal, round. Neck: Supple, no mass Respiratory: Clear (more content not included)... [facility] 11-03-2024 History of Presen t illness Narrative Images from the original note were not included. [facility] Department of Cardiovascular Medicine SECTION OF CLINICAL CARDIOLOGY OUTPATIENT VISIT DATE November 03, 2024 OUTPATIENT VISIT TYPE ESTABLISHED PRIMARY CARE PHYSICIAN: Wes Gates [address] [place] [address] REFERRING PHYSICIAN: No referring provider defined for this encounter. CHIEF COMPLAINT: Follow Up (Lightheadedness since beginning Cymbalta/Occasional L Chest discomfort - same as past with Dr Dunlap/Concerned about BP being too low/And blood sugar being low recently/Only coffee this morning/EKG Today/BRIDGETT 02/17/24 Mendoza/EKG 05/11/23 /Cath 04/28/23/Echo 04/27/23/Stress 04/26/23) HISTORY OF PRESENT ILLNESS: The patient is a 54-year-old male with a history of CAD, status post three stent placements in 2022, presenting for a follow-up visit. He last saw Dr. Dunlap in February 2024. The patient reports intermittent, fleeting chest pain that is localized and non-radiating. He denies dyspnea but notes occasional dizziness, which he attributes to recent initiation of Cymbalta. He also reports episodes of hand tremors. He monitors his blood pressure at home, typically around 110/80-85?mmHg, but notes it was lower than usual today. He denies any significant issues since his last visit. He has lost approximately 19 pounds since June. He denies snoring and reports variable sleep quality, sometimes waking after four hours but generally able to return to sleep. He occasionally experiences daytime somnolence, dozing off in the afternoons. He was previously diagnosed with sleep apnea and was prescribed a CPAP machine, which he found intolerable. He uses a product called [employer] to help clear his nasal passages before sleep. He drinks coffee in the morning, which his prepares with protein and creamer. He is a jhqj-wv-tinz grandparent, caring for his grandchildren, ages 10, 7, and 2 months, for 12 hours a day, twice a week. He plays pickleball but does not engage in other forms of exercise and describes himself as out of shape. He is currently taking atorvastatin, isosorbide mononitrate 30?mg once daily, and Cymbalta. Subjective PAST MEDICAL HISTORY Diagnosis Date ADD (attention deficit disorder) 08/28/2011 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) Diabetes (HCC) Hypertension 08/28/2011 Mixed hyperlipidemia Obesity S/P angioplasty with stent PAST SURGICAL HISTORY Procedure Laterality Date ARTHROSCOPY KNEE DIAGNOSTIC W/WO SYNOVIAL BX SPX Left 06/07/2014 meniscus OSTECTOMY CALCANEUS SPUR W/WO PLNTAR FASCIAL RLS Left PCI/STENT 04/27/2023 [facility] 04/27/23 PCI x3 (diagonal, pda and plv1). REPAIR NASAL SEPTUM PERFORATN devation REPAIR UMBILICAL HERNIA 01/08/2016 Social History Tobacco Use Smoking status: Never Smokeless tobacco: Never Vaping Use Vaping status: Never Used Substance Use Topics Alcohol use: No Drug use: No FAMILY HISTORY Problem Relation Age of Onset Diabetes Mother Lung Cancer Mother Amblyopia Father other (gastric CA) Father Diabetes Brother Cataract Brother Coronary Artery Disease Brother Large AMI at age 39 ALLERGIES: ALLERGIES Allergen Reactions Amlodipine Other: See Comments Facial numbness MEDICATIONS: DULoxetine (CYMBALTA) 30 mg capsule Take 1 capsule by mouth once daily. clopidogrel (PLAVIX) 75 mg tablet Take 1 tablet by mouth once daily. Lancets Test blood sugar(s) 1 times daily. Dx: Type 2 DM - Uncontrolled E11.65 Insulin: No glimepiride (AMARYL) 2 mg tablet Take 1 tablet by mouth daily with breakfast. blood sugar diagnostic (BLOOD GLUCOSE TEST) test strip Test blood sugar(s) 1 times daily. Dx: Type 2 DM - Uncontrolled E11.65 Insulin: No dulaglutide (TRULICITY) 3 mg/0.5 mL pen injector Inject 3 mg subcutaneously one time a week. pioglitazone (ACTOS) 30 mg tablet Take 1 tablet by mouth once daily. meloxicam (MOBIC) 15 mg tablet Take 1 tablet by mouth once daily. atorvastatin (LIPITOR) 80 mg tablet Take 1 tablet by mouth daily at bedtime. isosorbide mononitrate ER (IMDUR) 30 mg 24 hr tablet Take 1 tablet by mouth once daily. dulaglutide (TRULICITY) 1.5 mg/0.5 mL pen injector Inject 1.5 mg subcutaneously one time a week. Inject dose once per week. Discard Pen After TRUE METRIX GLUCOSE METER as directed. aspirin 81 mg chewable tablet Take 1 tablet by mouth once daily. Objective PHYSICAL EXAMINATION: BP 100/62 (BP Position: Sitting) Ht 182.9 cm (6') Wt 118.3 kg (260 lb 12.9 oz) SpO2 96% BMI 35.37 kg/m General: Alert & oriented, no acute distress Skin: Normal HEENT: Pupils equal, round. Neck: Supple, no mass Respiratory: Clear to auscultation, bilaterally Cardiovascular: Jugular venous pressure normal. Regular rate and rhythm, normal S1 and S2, no murmurs or added sounds MSK: No joint swelling, erythema, or tenderness Extremities: No clubbing, cyanosis, or edema CARDIOVASCULAR MEDICINE TESTING: Electrocardiogram: Sinus rhythm 91 bpm no ischemic changes Last ECHO Result Conclusion ECHO Collected: 04/27/2023 12:35 PM (Final result) Impression: CONCLUSIONS: - Exam indication: Chest Pain - The left ventricle is normal in size. Left ventricular systolic function is normal. EF = 58 5% (2D biplane) Normal left ventricular diastolic function. - The right ventricle is normal in size. Right ventricular systolic function is normal. - The visualized aorta is borderline dilated with a maximal dimension of 3.8 cm. - Mildly dilated ascending aoerta measuring 3.56cm. - There is mild (1+) mitral regurgitation. - Estimated right ventricular systolic pressure is 27 mmHg consistent with normal pulmonary artery pressures. Estimated right atrial pressure is 15 mmHg based on IVC assessment. - Mildly dilated ascending aoerta measuring 3.56cm. - The patient has not had a prior CC echocardiographic exam for comparison. * * * Final * * * Last EKG Result Conclusion ECG COMPLETE Collected: 11/03/2024 11:27 AM (Preliminary result) Impression: NORMAL SINUS RHYTHM NORMAL ECG I have personally reviewed the Electrocardiogram. I personally interviewed, confirmed and edited the above information if obtained by others. Conclusion: 1. Mixed hyperlipidemia (E78.2) LDL cholesterol level was 64 mg/dL on last check. Patient has a history of three stents placed in 2022. Currently on atorvastatin. - Discontinue atorvastatin. - Recheck lipid profile in 4-5 months, including an NMR lipid profile to assess LDL particle size and number. - Follow-up in 6 months to discuss cholesterol management. 2. Vitamin D deficiency (E55.9) No recent vitamin D level checks. - Order vitamin D level to be drawn in January. 3. Vitamin B12 deficiency (E53.8) 4. Hypothyroidism, unspecified type (E03.9) Thyroid function tests have been monitored. 5. Iron deficiency anemia, unspecified iron deficiency anemia type (D50.9) - Order iron studies to be drawn in January. PLAN AND RECOMMENDATIONS: We discussed your cardiovascular health and follow-up care: - Your EKG and physical exam today were normal, with no swelling in your ankles and clear lungs. - You reported occasional fleeting chest pain that does not spread and is not associated with shortness of breath or lightheadedness. Please monitor this and let us know if the pain changes in pattern, becomes more frequent, lasts longer, or occurs with other symptoms. - You are currently taking Imdur (isosorbide mononitrate) 30 mg daily. Continue this medication as your blood pressure readings at home are stable. If you feel lightheaded, check your blood pressure to ensure it is not too low. - We discussed stopping atorvastatin (Lipitor) for now. Your LDL cholesterol was 64 at your last check, which is excellent. We will recheck your cholesterol in 4-5 months with an advanced NMR lipid profile to assess your LDL particle size and count. In the meantime, focus on maintaining a heart-healthy lifestyle to keep your cholesterol levels low. We discussed your dizziness and Cymbalta: - You reported dizziness that began after starting Cymbalta. Please follow up with the prescribing doctor to discuss whether this medication or its dosage needs adjustment. We discussed your blood sugar and diet: - You mentioned occasional hand tremors. Monitor your blood sugar levels when this occurs to rule out low blood sugar. - Avoid artificial sweeteners, as they are not beneficial for your health. Consider using small amounts of natural sweeteners like honey, pure maple syrup, or Allulose, a plant-based sweetener that may help lower blood sugar. We discussed your weight loss and activity: - You have lost 19 pounds since June, which is great progress. Continue your healthy eating habits. - You mentioned playing pickleball but not engaging in other physical activities. Consider incorporating regular exercise to improve your overall fitness. We discussed your sleep: - You reported occasional daytime sleepiness and a history of sleep apnea but difficulty tolerating a CPAP machine. Consider discussing updated treatment options, such as an oral appliance, with your primary care doctor. A repeat sleep study may also be beneficial. We discussed your upcoming blood work and follow-up: - Blood work is planned for January, including cholesterol, vitamin D, iron, and thyroid levels. Please complete this before February 02, as the order will on that date. - Follow up with me in 6 months to review your cholesterol results and overall health. - Schedule a follow-up with Dr. Toscano, the manufacturing sr engineer, in 1 year. Please let us know if you experience any new or worsening symptoms or have any questions before your next visit. Allulose as a sweetener Stop the atorvastatin for now Have fasting blood work including NMR lipid profile in January Follow up 6 months with Preethi Follow up [address] Toscano CONTACT INFORMATION: Preethi Causey APRN.[facility] Nurse Practitioner Section of Regional Cardiology [facility] Dept of Cardiovascular Medicine [facility] [address] [address] Office Office This note was partially generated using [employer] voice recognition system and may contain errors related to that system including grammar, punctuation, spelling, and words that may be inappropriate documented in this encounter [facility] 10-24-2024 Note HNO ID: [id number] Author: DEVAUGHN CHEN PT Service: ? Author Type: Physical Therapist Type: Progress Notes Filed: 10/24/2024 14:16 Note Text: Episode Visit Count: 5 Therapist That Will Accept/Oversee The Plan Of Care: Devaughn Chen Start of Care Date: 08/31/24 Onset Date: 07/03/24 Plan of Care Certification Date: 08/31/24 Next Certification Due Date: 10/31/24 REHABILITATION AND SPORTS THERAPY PHYSICAL THERAPY TREATMENT NOTE ASSESSMENT: Sivan Tamayo tolerated the session with decreased symptoms and expected muscle soreness. He demonstrated improvements in R shoulder pain post session. The patient will continue to benefit from ongoing skilled physical therapy to progress toward set goals and for reassessment by supervising therapist. PLAN FOR NEXT VISIT: SC SUBJECTIVE: Patient notes that needling to QL last time has allowed better, more pain free movement, improved bending, and overall function. Today his R shoulder is bugging him. Overall improved, but still issues with overhand hits in pickle ball, some reaching/lifting. Pain: Pain Pain Level: 4 Pain Location: Shoulder - Right Description: Aching, Sore Frequency: Intermittent, With movement OBJECTIVE MEASURES WITH LEVEL OF FUNCTION: Palpation to R deltoid and supraspinatus attachment on greater tuberosity reproduces familiar pain TREATMENT: Manual Therapy: 1: STM to R deltoid with push to tolerance 2: PROM R shoulder Dry Needling: (1) 40 mm needle to R deltoid and supraspinatus attachment into greater tuberosity with psitoning, fanning, and periosteal pecking in multiple locations Skilled Intervention: Manual skills to improve joint mobility, ROM, and decrease pain. Utilized anatomy knowledge of the clinician, and assessment of patient's response to intervention. Billing Manual TherapyTreatment Minutes: 24 Skilled Treatment Time Minutes (timed and untimed codes): 24 Total Session Time (minutes): 24 Session Start Time : 1228 Session Stop Time : 1252 Devaughn Chen PT [facility] 10-06-2024 Telephone encounter Note Please see pt message. Has not been on Adderall for extended period of time. Please advise. Pt last visit 08/14/24. Next visit 12/22/24. If visit is required, is VV acceptable? Ebony Valdes MA [facility] 10-06-2024 Miscellaneous Notes Please see pt message. Has not been on Adderall for extended period of time. Please advise. Pt last visit 08/14/24. Next visit 12/22/24. If visit is required, is VV acceptable? Ebony Valdes MA documented in this encounter [facility] 10-06-2024 Note HNO ID: [id number] Author: DEVAUGHN CHEN PT Service: ? Author Type: Physical Therapist Type: Progress Notes Filed: 10/06/2024 08:27 Note Text: Episode Visit Count: 4 Therapist That Will Accept/Oversee The Plan Of Care: Devaughn Chen Start of Care Date: 08/31/24 Onset Date: 07/03/24 Plan of Care Certification Date: 08/31/24 Next Certification Due Date: 10/31/24 REHABILITATION AND SPORTS THERAPY PHYSICAL THERAPY PROGRESS REPORT PLAN OF CARE UPDATE: Assessment: Sivan Tamayo demonstrates difficulty with rising from a chair, walking in the community, bending, heavy exertion, physical activities, recreational activities, and squatting. The patient has progressed toward goals. Patient continues to present with impairments in ADL's, overall function, range of motion, symptom management, and tissue tenderness that interfere with rising from a chair, stair negotiation, bending, heavy exertion, physical activities, recreational activities, squatting, running . Current prognosis is Good due to: current objective clinical presentation, good overall health status, positive past response to therapy, within-session changes, good support system/ coping skills . The patient will benefit from continued skilled therapy services to meet the updated goals for this plan of care as noted below. Goals updated on 10/06/2024. Goals for Episode of Care: established 08/31/24 [place] in home exercise program. Met Patient will decrease pain rating by 2 points to meet minimal clinical important difference for numeric pain rating scale. Partially met Patient will increase active ROM of R shoulder and PROM of B hips to WNL to allow pt to to improve postural alignment and to improve performance of ADLs. Improving Patient will demonstrate increase in R shoulder ER and B hips strength to 5/5 during manual muscle testing in order to improve function for home management tasks, leisure / recreation skills, and moderate to heavy functional tasks. Improving Perform overhead motions and bending/lifting with decreased report of symptoms/pain in 4-6 weeks. Improving Perform ADLs and work tasks without pain. Partially met Time Frame for Goals and Treatment : 10/31/24 Planned Interventions, Frequency, and Duration: 1x every other week, 4 weeks Total Number of Visits Planned: 2 Patient to be seen for Therapeutic exercise (60011), Neuromuscular re-education (45599), Manual therapy (22055), Therapeutic activities (42172), Self-mcfp management (15927), Patient/Family/Caregiver Education, Body Mechanics Training PLAN FOR NEXT VISIT: Assess carry over from needling QL. May work hips, LBP or shoulder per patients s/s SUBJECTIVE: Patient notes increased back pain today. unsure if it is related to hip or moreso something separate. Shoulder is continuing to improve, and really only bad when he uses it overhead, and had velocity behind movements (pickle ball, for example). Back hurts most with transitional movements like standing up from a chair. Hips are doing better, but still painful. Functional Limitations: rising from a chair, stair negotiation, bending, heavy exertion, physical activities, recreational activities, squatting, running Intake Information: Prescription present Pain: Pain Pain Level: 2 Pain Location: Shoulder - Right Description: Aching, Sore Frequency: Intermittent, With movement Pain Level 2: 7 Pain Location 2: Low Back/Lumbar Spine - Left Description 2: Sharp, Radiating, Spasm Frequency 2: Continuous OBJECTIVE MEASURES WITH LEVEL OF FUNCTION: Spine Observations L Lumbar Spine Palpation Tenderness: Quadratus Lumborum, Paraspinals UE AROM R UE AROM: Minimal limitations in elevation and functional IR with some light/dull pain at end range LE PROM R LE PROM: Moderate limitations in hip flexion and IR L LE PROM : Moderate limitation in hip flexion, major limitation with hip IR UE and Cervical Strength Strength Tested: Shoulder All R Shoulder External Rotation: 4+/5 LE Strength R Hip ABduction: 4+/5 R Hip External Rotation: 4+/5 L Hip ABduction: 4+/5 L Hip External Rotation: 4+/5 TREATMENT: Therapeutic Exercise: 1: *QL stretch in supine 3x30 sec 2: *QL stretch in standing 3x30 sec 3: Objective measures obtained 4: Reviewed HEP for hips and shoulder Skilled Intervention: Patient was educated in proper exercise technique and purpose for exercises. Skilled judgment was used in selection of appropriate interventions. Provided written instruction for home exercise program to facilitate proper performance and compliance. Correct performance of therapeutic exercises was facilitated with verbal, visual, and tactile cuing. Manual Therapy: 1: PROM QL stretch 3x30 sec post needling 2: STM with push to tolerance and assess tissue quality and symptom reproduction to L QL and lumbar paraspinals Dry Needling: (1) 75 and (1) 100 mm needle to L QL with pis (more content not included)... [facility] 10-06-2024 History of Presen t illness Narrative Episode Visit Count: 4 Therapist That Will Accept/Oversee The Plan Of Care: Devaughn Chen Start of Care Date: 08/31/24 Onset Date: 07/03/24 Plan of Care Certification Date: 08/31/24 Next Certification Due Date: 10/31/24 REHABILITATION AND SPORTS THERAPY PHYSICAL THERAPY PROGRESS REPORT PLAN OF CARE UPDATE: Assessment: Sivan Tamayo demonstrates difficulty with rising from a chair, walking in the community, bending, heavy exertion, physical activities, recreational activities, and squatting. The patient has progressed toward goals. Patient continues to present with impairments in ADL's, overall function, range of motion, symptom management, and tissue tenderness that interfere with rising from a chair, stair negotiation, bending, heavy exertion, physical activities, recreational activities, squatting, running . Current prognosis is Good due to: current objective clinical presentation, good overall health status, positive past response to therapy, within-session changes, good support system/ coping skills . The patient will benefit from continued skilled therapy services to meet the updated goals for this plan of care as noted below. Goals updated on 10/06/2024. Goals for Episode of Care: established 08/31/24 [place] in home exercise program. Met Patient will decrease pain rating by 2 points to meet minimal clinical important difference for numeric pain rating scale. Partially met Patient will increase active ROM of R shoulder and PROM of B hips to WNL to allow pt to to improve postural alignment and to improve performance of ADLs. Improving Patient will demonstrate increase in R shoulder ER and B hips strength to 5/5 during manual muscle testing in order to improve function for home management tasks, leisure / recreation skills, and moderate to heavy functional tasks. Improving Perform overhead motions and bending/lifting with decreased report of symptoms/pain in 4-6 weeks. Improving Perform ADLs and work tasks without pain. Partially met Time Frame for Goals and Treatment : 10/31/24 Planned Interventions, Frequency, and Duration: 1x every other week, 4 weeks Total Number of Visits Planned: 2 Patient to be seen for Therapeutic exercise (60889), Neuromuscular re-education (61432), Manual therapy (26667), Therapeutic activities (40360), Self-mcfp management (69324), Patient/Family/Caregiver Education, Body Mechanics Training PLAN FOR NEXT VISIT: Assess carry over from needling QL. May work hips, LBP or shoulder per patients s/s SUBJECTIVE: Patient notes increased back pain today. unsure if it is related to hip or moreso something separate. Shoulder is continuing to improve, and really only bad when he uses it overhead, and had velocity behind movements (pickle ball, for example). Back hurts most with transitional movements like standing up from a chair. Hips are doing better, but still painful. Functional Limitations: rising from a chair, stair negotiation, bending, heavy exertion, physical activities, recreational activities, squatting, running Intake Information: Prescription present Pain: Pain Pain Level: 2 Pain Location: Shoulder - Right Description: Aching, Sore Frequency: Intermittent, With movement Pain Level 2: 7 Pain Location 2: Low Back/Lumbar Spine - Left Description 2: Sharp, Radiating, Spasm Frequency 2: Continuous OBJECTIVE MEASURES WITH LEVEL OF FUNCTION: Spine Observations L Lumbar Spine Palpation Tenderness: Quadratus Lumborum, Paraspinals UE AROM R UE AROM: Minimal limitations in elevation and functional IR with some light/dull pain at end range LE PROM R LE PROM: Moderate limitations in hip flexion and IR L LE PROM : Moderate limitation in hip flexion, major limitation with hip IR UE and Cervical Strength Strength Tested: Shoulder All R Shoulder External Rotation: 4+/5 LE Strength R Hip ABduction: 4+/5 R Hip External Rotation: 4+/5 L Hip ABduction: 4+/5 L Hip External Rotation: 4+/5 TREATMENT: Therapeutic Exercise: 1: *QL stretch in supine 3x30 sec 2: *QL stretch in standing 3x30 sec 3: Objective measures obtained 4: Reviewed HEP for hips and shoulder Skilled Intervention: Patient was educated in proper exercise technique and purpose for exercises. Skilled judgment was used in selection of appropriate interventions. Provided written instruction for home exercise program to facilitate proper performance and compliance. Correct performance of therapeutic exercises was facilitated with verbal, visual, and tactile cuing. Manual Therapy: 1: PROM QL stretch 3x30 sec post needling 2: STM with push to tolerance and assess tissue quality and symptom reproduction to L QL and lumbar paraspinals Dry Needling: (1) 75 and (1) 100 mm needle to L QL with pistoning and fanning Skilled Intervention: Manual skills to improve joint mobility, ROM, and decrease pain. Utilized anatomy knowledge of the clinician, and assessment of patient's response to intervention. Billing Therapeutic Exercise Treatment Minutes: 20 Manual TherapyTreatment Minutes: 20 Skilled Treatment Time Minutes (timed and untimed codes): 40 Total Session Time (minutes): 40 Session Start Time : 1213 Session Stop Time : 1253 Devaughn Chen PT documented in this encounter [facility] 10-03-2024 Progress note Formatting of t his note might be different from the original. Program_ID:[id number] Access Code: [email or web address] URL: [email or web address]/ Date: 10-03-2024 Prepared By: Devaughn Chen Program Notes Exercises - Sidelying Hip Abduction - 1 x daily - 7 x weekly - 3 sets - 10 reps - Clamshell with Resistance - 1 x daily - 7 x weekly - 3 sets - 10 reps - Prone Quadriceps Stretch with Strap - 1 x daily - 7 x weekly - 3 sets - 10 reps - Scapular Wall Slides - 1 x daily - 7 x weekly - 3 sets - 10 reps - Shoulder W - External Rotation with Resistance - 1 x daily - 7 x weekly - 3 sets - 10 reps - Prone Scapular Retraction Arms at Side - 1 x daily - 7 x weekly - 3 sets - 10 reps - Prone Scapular Slide with Shoulder Extension - 1 x daily - 7 x weekly - 3 sets - 10 reps - Half Kneeling Hip Flexor Stretch - 1 x daily - 7 x weekly - 3 sets - 10 reps - Modified Ludwig Stretch - 1 x daily - 7 x weekly - 3 sets - 10 reps - Hip Flexor Stretch with Chair - 1 x daily - 7 x weekly - 3 sets - 10 reps - Doorway Pec Stretch at 90 Degrees Abduction - 1 x daily - 7 x weekly - 3 sets - 3 reps - Supine Chest Stretch on Foam Roll - 1 x daily - 7 x weekly - 3 sets - 10 reps - Standing Quadratus Lumborum Stretch with Doorway - 1 x daily - 7 x weekly - 3 sets - 3 reps - Supine Quadratus Lumborum Stretch - 1 x daily - 7 x weekly - 3 sets - 3 reps - Supine Transversus Abdominis Bracing - Hands on Stomach - 1 x daily - 7 x weekly - 3 sets - 10 reps - Neutral Curl Up with Straight Leg - 1 x daily - 7 x weekly - 3 sets - 10 reps - Supine Bug with Leg Extension - 1 x daily - 7 x weekly - 3 sets - 10 reps [facility] 10-03-2024 Miscellaneous Notes Program_ID:[id number] Access Code: [email or web address] URL: [email or web address]/ Date: 10-03-2024 Prepared By: Devaughn Chen Program Notes Exercises - Sidelying Hip Abduction - 1 x daily - 7 x weekly - 3 sets - 10 reps - Clamshell with Resistance - 1 x daily - 7 x weekly - 3 sets - 10 reps - Prone Quadriceps Stretch with Strap - 1 x daily - 7 x weekly - 3 sets - 10 reps - Scapular Wall Slides - 1 x daily - 7 x weekly - 3 sets - 10 reps - Shoulder W - External Rotation with Resistance - 1 x daily - 7 x weekly - 3 sets - 10 reps - Prone Scapular Retraction Arms at Side - 1 x daily - 7 x weekly - 3 sets - 10 reps - Prone Scapular Slide with Shoulder Extension - 1 x daily - 7 x weekly - 3 sets - 10 reps - Half Kneeling Hip Flexor Stretch - 1 x daily - 7 x weekly - 3 sets - 10 reps - Modified Ludwig Stretch - 1 x daily - 7 x weekly - 3 sets - 10 reps - Hip Flexor Stretch with Chair - 1 x daily - 7 x weekly - 3 sets - 10 reps - Doorway Pec Stretch at 90 Degrees Abduction - 1 x daily - 7 x weekly - 3 sets - 3 reps - Supine Chest Stretch on Foam Roll - 1 x daily - 7 x weekly - 3 sets - 10 reps - Standing Quadratus Lumborum Stretch with Doorway - 1 x daily - 7 x weekly - 3 sets - 3 reps - Supine Quadratus Lumborum Stretch - 1 x daily - 7 x weekly - 3 sets - 3 reps - Supine Transversus Abdominis Bracing - Hands on Stomach - 1 x daily - 7 x weekly - 3 sets - 10 reps - Neutral Curl Up with Straight Leg - 1 x daily - 7 x weekly - 3 sets - 10 reps - Supine Bug with Leg Extension - 1 x daily - 7 x weekly - 3 sets - 10 reps documented in this encounter [facility] 09-21-2024 Note HNO ID: [id number] Author: DEVAUGHN CHEN PT Service: ? Author Type: Physical Therapist Type: Progress Notes Filed: 09/21/2024 12:07 Note Text: Episode Visit Count: 3 Therapist That Will Accept/Oversee The Plan Of Care: Devaughn Chen Start of Care Date: 08/31/24 Onset Date: 07/03/24 Plan of Care Certification Date: 08/31/24 Next Certification Due Date: 10/31/24 REHABILITATION AND SPORTS THERAPY PHYSICAL THERAPY TREATMENT NOTE ASSESSMENT: Sivan Tamayo tolerated the session with decreased symptoms. He demonstrated improvements in hip and shoulder mobility. The patient will continue to benefit from ongoing skilled physical therapy to progress toward set goals. PLAN FOR NEXT VISIT: [place] SUBJECTIVE: Patient notes some subtle improvements again. Notes still hurts to swing raquet overhead, and hips are still pinching, but does feel he is moving better overall Pain: Pain Pain Level: 3 Pain Location: Shoulder - Right Description: Aching, Sore Frequency: Intermittent, With movement Pain Level 2: 2 Pain Location 2: Hip - Left, Hip - Right Description 2: Sore, Aching Frequency 2: Intermittent OBJECTIVE MEASURES WITH LEVEL OF FUNCTION: TREATMENT: Therapeutic Exercise: 1: *Kneeling hip flexor stretch 3x30 sec/side 2: *Standing hip flexor stretch 3x30 sec/side 3: *Supine leg off edge of table hip flexor stretch 3x30 sec/side 4: *Doorway pec stretch 3x30 sec 5: *Supine lying on half foam roller pec stretch x2-3 min to tolerance Skilled Intervention: Patient was educated in proper exercise technique and purpose for exercises. Skilled judgment was used in selection of appropriate interventions. Provided written instruction for home exercise program to facilitate proper performance and compliance. Correct performance of therapeutic exercises was facilitated with verbal, visual, and tactile cuing. Self-Detention Management: 1: Reviewed imaging again and related hi symptoms with findings and discussed functional and rehab implications Skilled Intervention: Skilled judgment in the selection of proper modification for activity of daily living/home management based on clinical presentation, deficits, and needs. Reviewed patient specific diagnosis in relation to activities of daily living/home management. Activity progression based on professional judgement. Billing Therapeutic Exercise Treatment Minutes: 30 Self-Care/Home Management Treatment Minutes: 10 Skilled Treatment Time Minutes (timed and untimed codes): 40 Total Session Time (minutes): 40 Session Start Time : 1140 Session Stop Time : 1220 Devaughn Chen PT [facility] 09-21-2024 History of Presen t illness Narrative Episode Visit Count: 3 Therapist That Will Accept/Oversee The Plan Of Care: Devaughn Chen Start of Care Date: 08/31/24 Onset Date: 07/03/24 Plan of Care Certification Date: 08/31/24 Next Certification Due Date: 10/31/24 REHABILITATION AND SPORTS THERAPY PHYSICAL THERAPY TREATMENT NOTE ASSESSMENT: Sivan Tamayo tolerated the session with decreased symptoms. He demonstrated improvements in hip and shoulder mobility. The patient will continue to benefit from ongoing skilled physical therapy to progress toward set goals. PLAN FOR NEXT VISIT: [place] SUBJECTIVE: Patient notes some subtle improvements again. Notes still hurts to swing raquet overhead, and hips are still pinching, but does feel he is moving better overall Pain: Pain Pain Level: 3 Pain Location: Shoulder - Right Description: Aching, Sore Frequency: Intermittent, With movement Pain Level 2: 2 Pain Location 2: Hip - Left, Hip - Right Description 2: Sore, Aching Frequency 2: Intermittent OBJECTIVE MEASURES WITH LEVEL OF FUNCTION: TREATMENT: Therapeutic Exercise: 1: *Kneeling hip flexor stretch 3x30 sec/side 2: *Standing hip flexor stretch 3x30 sec/side 3: *Supine leg off edge of table hip flexor stretch 3x30 sec/side 4: *Doorway pec stretch 3x30 sec 5: *Supine lying on half foam roller pec stretch x2-3 min to tolerance Skilled Intervention: Patient was educated in proper exercise technique and purpose for exercises. Skilled judgment was used in selection of appropriate interventions. Provided written instruction for home exercise program to facilitate proper performance and compliance. Correct performance of therapeutic exercises was facilitated with verbal, visual, and tactile cuing. Self-Detention Management: 1: Reviewed imaging again and related hi symptoms with findings and discussed functional and rehab implications Skilled Intervention: Skilled judgment in the selection of proper modification for activity of daily living/home management based on clinical presentation, deficits, and needs. Reviewed patient specific diagnosis in relation to activities of daily living/home management. Activity progression based on professional judgement. Billing Therapeutic Exercise Treatment Minutes: 30 Self-Care/Home Management Treatment Minutes: 10 Skilled Treatment Time Minutes (timed and untimed codes): 40 Total Session Time (minutes): 40 Session Start Time : 1140 Session Stop Time : 1220 Devaughn Chen PT Program_ID:[id number] Access Code: [email or web address] URL: [email or web address] Date: 09-19-2024 Prepared By: Devaughn Chen Program Notes Exercises - Sidelying Hip Abduction - 1 x daily - 7 x weekly - 3 sets - 10 reps - Clamshell with Resistance - 1 x daily - 7 x weekly - 3 sets - 10 reps - Prone Quadriceps Stretch with Strap - 1 x daily - 7 x weekly - 3 sets - 10 reps - Scapular Wall Slides - 1 x daily - 7 x weekly - 3 sets - 10 reps - Shoulder W - External Rotation with Resistance - 1 x daily - 7 x weekly - 3 sets - 10 reps - Prone Scapular Retraction Arms at Side - 1 x daily - 7 x weekly - 3 sets - 10 reps - Prone Scapular Slide with Shoulder Extension - 1 x daily - 7 x weekly - 3 sets - 10 reps - Half Kneeling Hip Flexor Stretch - 1 x daily - 7 x weekly - 3 sets - 10 reps - Modified Ludwig Stretch - 1 x daily - 7 x weekly - 3 sets - 10 reps - Hip Flexor Stretch with Chair - 1 x daily - 7 x weekly - 3 sets - 10 reps - Doorway Pec Stretch at 90 Degrees Abduction - 1 x daily - 7 x weekly - 3 sets - 3 reps - Supine Chest Stretch on Foam Roll - 1 x daily - 7 x weekly - 3 sets - 10 reps documented in this encounter [facility] 09-13-2024 Telephone encounter Note Prescription Refill Information The patient has been identified by name and date of : Yes Caregiver verified no other encounters exist for this prescription request: Yes Caregiver confirmed with patient/requestor that no other refills are due, in the near future, with this provider at this time: Yes The last office visit in the department: 08/14/24 Does the patient have a future office visit with this provider/department: Yes Requested Prescriptions Pending Prescriptions Disp Refills Lancets 100 each 11 Sig: Test blood sugar(s) 1 times daily. Dx: Type 2 DM - Uncontrolled E11.65 Insulin: No glimepiride (AMARYL) 2 mg tablet 90 tablet 3 Sig: Take 1 tablet by mouth daily with breakfast. blood sugar diagnostic (BLOOD GLUCOSE TEST) test strip 50 strip 11 Sig: Test blood sugar(s) 1 times daily. Dx: Type 2 DM - Uncontrolled E11.65 Insulin: No Margarita Gan LPN September 13, 2024 11:10 AM [facility] 09-13-2024 Miscellaneous Notes Prescription Refill Information The patient has been identified by name and date of : Yes Caregiver verified no other encounters exist for this prescription request: Yes Caregiver confirmed with patient/requestor that no other refills are due, in the near future, with this provider at this time: Yes The last office visit in the department: 08/14/24 Does the patient have a future office visit with this provider/department: Yes Requested Prescriptions Pending Prescriptions Disp Refills Lancets 100 each 11 Sig: Test blood sugar(s) 1 times daily. Dx: Type 2 DM - Uncontrolled E11.65 Insulin: No glimepiride (AMARYL) 2 mg tablet 90 tablet 3 Sig: Take 1 tablet by mouth daily with breakfast. blood sugar diagnostic (BLOOD GLUCOSE TEST) test strip 50 strip 11 Sig: Test blood sugar(s) 1 times daily. Dx: Type 2 DM - Uncontrolled E11.65 Insulin: No Margarita Gan LPN September 13, 2024 11:10 AM documented in this encounter [facility] 09-13-2024 Telephone encounter Note Patient has been identified by name and date of : Yes Pharmacy electronically sent a request for the following prescription(s) If there are any questions regarding this prescription request, call at home at: [phone] (home) [phone] (cell) RX INSTRUCTIONS: Patient aware RX will be sent to pharmacy. No need to notify patient. Date of last office visit: 02/17/2024 Date of last [facility] visit: Visit date not found Date of future office visit: 11/03/2024 Requested Prescriptions Pending Prescriptions Disp Refills clopidogrel (PLAVIX) 75 mg tablet 90 tablet 3 Sig: Take 1 tablet by mouth once daily. Prescriptions are usually addressed within 24-48 business hours. If patient states they cannot wait 24-48 business hours, please document details. Last 2 Encounter Wt Readings: Date: Wt: 08/14/2024 120.7 kg (266 lb) 06/23/2024 127 kg (279 lb 15.8 oz) Last 2 Encounter BP Readings: Date: BP: 08/14/2024 120/82 06/23/2024 136/82 CMP: Glucose 158 06/19/2024 BUN 13 06/19/2024 Creatinine 0.80 06/19/2024 Sodium 138 06/19/2024 Potassium 4.4 06/19/2024 Chloride 105 06/19/2024 CO2 22 06/19/2024 Protein, Total 7.4 06/19/2024 Albumin 4.3 06/19/2024 Calcium 8.9 06/19/2024 Alkaline Phosphatase 93 06/19/2024 Bilirubin, Total 0.5 06/19/2024 AST 19 06/19/2024 ALT 24 06/19/2024 Cholesterol, Total (mg/dL) Date Value 06/19/2024 123 07/29/2023 123 07/05/2021 242 HDL Cholesterol (mg/dL) Date Value 06/19/2024 36 07/29/2023 30 07/05/2021 30 LDL Cholesterol (mg/dL) Date Value 06/19/2024 60 07/29/2023 45 07/05/2021 Unable to calculate due to increased Triglycerides. See LDL-Chol, Direct. Triglyceride (mg/dL) Date Value 06/19/2024 134 07/29/2023 238 07/05/2021 467 Jessica Anderson MA [facility] 09-13-2024 Miscellaneous Notes Patient has been identified by name and date of : Yes Pharmacy electronically sent a request for the following prescription(s) If there are any questions regarding this prescription request, call at home at: [phone] (home) [phone] (cell) RX INSTRUCTIONS: Patient aware RX will be sent to pharmacy. No need to notify patient. Date of last office visit: 02/17/2024 Date of last [facility] visit: Visit date not found Date of future office visit: 11/03/2024 Requested Prescriptions Pending Prescriptions Disp Refills clopidogrel (PLAVIX) 75 mg tablet 90 tablet 3 Sig: Take 1 tablet by mouth once daily. Prescriptions are usually addressed within 24-48 business hours. If patient states they cannot wait 24-48 business hours, please document details. Last 2 Encounter Wt Readings: Date: Wt: 08/14/2024 120.7 kg (266 lb) 06/23/2024 127 kg (279 lb 15.8 oz) Last 2 Encounter BP Readings: Date: BP: 08/14/2024 120/82 06/23/2024 136/82 CMP: Glucose 158 06/19/2024 BUN 13 06/19/2024 Creatinine 0.80 06/19/2024 Sodium 138 06/19/2024 Potassium 4.4 06/19/2024 Chloride 105 06/19/2024 CO2 22 06/19/2024 Protein, Total 7.4 06/19/2024 Albumin 4.3 06/19/2024 Calcium 8.9 06/19/2024 Alkaline Phosphatase 93 06/19/2024 Bilirubin, Total 0.5 06/19/2024 AST 19 06/19/2024 ALT 24 06/19/2024 Cholesterol, Total (mg/dL) Date Value 06/19/2024 123 07/29/2023 123 07/05/2021 242 HDL Cholesterol (mg/dL) Date Value 06/19/2024 36 07/29/2023 30 07/05/2021 30 LDL Cholesterol (mg/dL) Date Value 06/19/2024 60 07/29/2023 45 07/05/2021 Unable to calculate due to increased Triglycerides. See LDL-Chol, Direct. Triglyceride (mg/dL) Date Value 06/19/2024 134 07/29/2023 238 07/05/2021 467 Jessica Anderson MA documented in this encounter [facility] 09-06-2024 Note HNO ID: [id number] Author: DEVAUGHN CHEN PT Service: ? Author Type: Physical Therapist Type: Progress Notes Filed: 09/06/2024 14:41 Note Text: Episode Visit Count: 2 Therapist That Will Accept/Oversee The Plan Of Care: Devaughn Chen Start of Care Date: 08/31/24 Onset Date: 07/03/24 Plan of Care Certification Date: 08/31/24 Next Certification Due Date: 10/31/24 REHABILITATION AND SPORTS THERAPY PHYSICAL THERAPY TREATMENT NOTE ASSESSMENT: Sivan Tamayo tolerated the session with decreased symptoms. He demonstrated improvements in shoulder pain with added manual to scapular downward rotators today. The patient will continue to benefit from ongoing skilled physical therapy to progress toward set goals. PLAN FOR NEXT VISIT: Assess carry over of self manual at home SUBJECTIVE: Patient doing slightly better after first session but still difficulties reaching overhead. Pain: Pain Pain Level: 4 Pain Location: Shoulder - Right Description: Aching, Sore Frequency: Intermittent, With movement Pain Level 2: 4 Pain Location 2: Hip - Left, Hip - Right Description 2: Sore, Aching Frequency 2: Intermittent OBJECTIVE MEASURES WITH LEVEL OF FUNCTION: TREATMENT: Therapeutic Exercise: 1: Prone quad stretch 3x30 sec/side 2: SL hip abduction 3x10/side 3: BTB clamshells 3x10/side 4: Scapular wall slides 3x10 5: BTB W's 3x10 6: Prone T 3x10, 5 sec holds 7: Prone I 3x10, 5 sec holds Skilled Intervention: Patient was educated in proper exercise technique and purpose for exercises. Skilled judgment was used in selection of appropriate interventions. Correct performance of therapeutic exercises was facilitated with verbal, visual, and tactile cuing. Manual Therapy: 1: STM and CFM to R lat, levator, and rhomboids with push to tolerance 2: Manual assist for scapular upward rotation x5 3: STM with lacrosse ball to R glute min Skilled Intervention: Manual skills to improve joint mobility, ROM, and decrease pain. Utilized anatomy knowledge of the therapist, and assessment of patient's response to intervention. Billing Therapeutic Exercise Treatment Minutes: 20 Manual TherapyTreatment Minutes: 21 Skilled Treatment Time Minutes (timed and untimed codes): 41 Total Session Time (minutes): 41 Session Start Time : 1547 Session Stop Time : 1628 Devaughn Chen PT [facility] 09-06-2024 History of Presen t illness Narrative Episode Visit Count: 2 Therapist That Will Accept/Oversee The Plan Of Care: Devaughn Chen Start of Care Date: 08/31/24 Onset Date: 07/03/24 Plan of Care Certification Date: 08/31/24 Next Certification Due Date: 10/31/24 REHABILITATION AND SPORTS THERAPY PHYSICAL THERAPY TREATMENT NOTE ASSESSMENT: Sivan Tamayo tolerated the session with decreased symptoms. He demonstrated improvements in shoulder pain with added manual to scapular downward rotators today. The patient will continue to benefit from ongoing skilled physical therapy to progress toward set goals. PLAN FOR NEXT VISIT: Assess carry over of self manual at home SUBJECTIVE: Patient doing slightly better after first session but still difficulties reaching overhead. Pain: Pain Pain Level: 4 Pain Location: Shoulder - Right Description: Aching, Sore Frequency: Intermittent, With movement Pain Level 2: 4 Pain Location 2: Hip - Left, Hip - Right Description 2: Sore, Aching Frequency 2: Intermittent OBJECTIVE MEASURES WITH LEVEL OF FUNCTION: TREATMENT: Therapeutic Exercise: 1: Prone quad stretch 3x30 sec/side 2: SL hip abduction 3x10/side 3: BTB clamshells 3x10/side 4: Scapular wall slides 3x10 5: BTB W's 3x10 6: Prone T 3x10, 5 sec holds 7: Prone I 3x10, 5 sec holds Skilled Intervention: Patient was educated in proper exercise technique and purpose for exercises. Skilled judgment was used in selection of appropriate interventions. Correct performance of therapeutic exercises was facilitated with verbal, visual, and tactile cuing. Manual Therapy: 1: STM and CFM to R lat, levator, and rhomboids with push to tolerance 2: Manual assist for scapular upward rotation x5 3: STM with lacrosse ball to R glute min Skilled Intervention: Manual skills to improve joint mobility, ROM, and decrease pain. Utilized anatomy knowledge of the therapist, and assessment of patient's response to intervention. Billing Therapeutic Exercise Treatment Minutes: 20 Manual TherapyTreatment Minutes: 21 Skilled Treatment Time Minutes (timed and untimed codes): 41 Total Session Time (minutes): 41 Session Start Time : 1547 Session Stop Time : 1628 Devaughn Chen PT documented in this encounter [facility] 08-31-2024 Note HNO ID: [id number] Author: DEVAUGHN CHEN PT Service: ? Author Type: Physical Therapist Type: Progress Notes Filed: 08/31/2024 15:45 Note Text: Episode Visit Count: 1 Therapist That Will Accept/Oversee The Plan Of Care: Devaughn Chen Start of Care Date: 08/31/24 Onset Date: 07/03/24 Plan of Care Certification Date: 08/31/24 Next Certification Due Date: 10/31/24 Patient Identified by Name and Date of : Yes REHABILITATION AND SPORTS THERAPY PHYSICAL THERAPY EVALUATION PLAN OF CARE: Assessment: Sivan Tamayo presents with chief complaint of R shoulder and B hip pain that interferes with sitting, rising from a chair, standing, walking, stair negotiation, bending, heavy exertion, lifting, physical activities, recreational activities, squatting, working . The patient presents with impairments in ADL's, overall function, range of motion, strength, symptom management, and tissue tenderness. Patient did not complete the PROMIS? (Patient Reported Outcome Measures Information System). Prognosis for therapy is Good due to: current objective clinical presentation, good support system/ coping skills, good overall health status . The patient will benefit from skilled therapy services to meet the goals established for this plan of care as noted below. Goals for Episode of Care: established 08/31/24 [place] in home exercise program. Patient will decrease pain rating by 2 points to meet minimal clinical important difference for numeric pain rating scale. Patient will increase active ROM of R shoulder and PROM of B hips to WNL to allow pt to to improve postural alignment and to improve performance of ADLs. Patient will demonstrate increase in R shoulder ER and B hips strength to 5/5 during manual muscle testing in order to improve function for home management tasks, leisure / recreation skills, and moderate to heavy functional tasks. Perform overhead motions and bending/lifting with decreased report of symptoms/pain in 4-6 weeks. Perform ADLs and work tasks without pain. Time Frame for Goals and Treatment : 10/31/24 Planned Interventions, Frequency, and Duration: Current Frequency: 1x every other week Duration: 8 weeks Total Number of Visits Planned: 4 Planned Treatment Interventions: Therapeutic exercise (94592), Neuromuscular re-education (90655), Manual therapy (30765), Therapeutic activities (99972), Self-mcfp management (58461), Patient/Family/Caregiver Education, Body Mechanics Training PLAN FOR NEXT VISIT: Assess carry over of HEP, manual to R iraida DR's Patient demonstrates good understanding of plan of care and treatment. The above goals and plan of care were discussed and agreed upon by patient/family. SUBJECTIVE: R shoulder pain for ~ 2months with worsening symptoms with overhead motions and recreational tasks like racquetball and pickleball. Notes that no ADLs bother it. Pain mostly stays in 1 spot on the outside of the shoulder, but can get some radiation down the arm at times with noted weakness. Notes with hips that they can lock up on him and pain is usually anterior hip. Also notes LBP and L knee pain. Imaging noted moderate OA in R shoulder and B hips, previously diagnosed with L knee severe OA as well. PMH includes diabetes Functional Limitations: sitting, rising from a chair, standing, walking, stair negotiation, bending, heavy exertion, lifting, physical activities, recreational activities, squatting, working Prior Level of Function: Independent without limitations Intake Information: Prescription present Pain: Pain Pain Level: 6 Pain Location: Shoulder - Right Description: Sharp, Aching, Sore Frequency: Intermittent, With movement Additional Pain Information : Location 2 Pain Level 2: 5 Pain Location 2: Hip - Right, Hip - Left Description 2: Sore, Aching, Sharp Frequency 2: Intermittent Post Treatment Pain Post Treatment Pain Level: No Change Post Treatment Pain Score 2: No Change OBJECTIVE MEASURES WITH LEVEL OF FUNCTION: UE AROM R UE AROM: Minimal limitations in all motions, pain with abduction and functional IR; major limitation in scapular UR LE PROM R LE PROM: major limitation in hip flexion, Mod mcallister in IR L LE PROM : Moderate limitation in hip flexion, Major in hip IR UE and Cervical Strength R UE Strength: 5/5 except 4/5 ER L UE Strength: 5/5 LE Strength R LE Strength: 5/5 except 4+/5 with hip abduction and ER L LE Strength: 5/5 except 4+/5 with hip abduction and ER Special Tests - Shoulder Shoulder Special Tests: Empty Can, Solis-Williams, Neer, [place] Empty Can: Right Negative Solis-Williams: Right Positive Neer: Right Positive [place]: Right Negative Special Tests - Hip and Spine Hip and Spine Special Tests: SLR Test, FADDIR Test, Scour Test SLR Test: Right Negative, Left Negative FADDIR Test: Right Positive, Left Positive Scour Test: Right Positive, Left Positive Education: (more content not included)... [facility] 08-31-2024 History of Presen t illness Narrative Episode Visit Count: 1 Therapist That Will Accept/Oversee The Plan Of Care: Devaughn Chen Start of Care Date: 08/31/24 Onset Date: 07/03/24 Plan of Care Certification Date: 08/31/24 Next Certification Due Date: 10/31/24 Patient Identified by Name and Date of : Yes REHABILITATION AND SPORTS THERAPY PHYSICAL THERAPY EVALUATION PLAN OF CARE: Assessment: Sivan Tamayo presents with chief complaint of R shoulder and B hip pain that interferes with sitting, rising from a chair, standing, walking, stair negotiation, bending, heavy exertion, lifting, physical activities, recreational activities, squatting, working . The patient presents with impairments in ADL's, overall function, range of motion, strength, symptom management, and tissue tenderness. Patient did not complete the PROMIS (Patient Reported Outcome Measures Information System). Prognosis for therapy is Good due to: current objective clinical presentation, good support system/ coping skills, good overall health status . The patient will benefit from skilled therapy services to meet the goals established for this plan of care as noted below. Goals for Episode of Care: established 08/31/24 [place] in home exercise program. Patient will decrease pain rating by 2 points to meet minimal clinical important difference for numeric pain rating scale. Patient will increase active ROM of R shoulder and PROM of B hips to WNL to allow pt to to improve postural alignment and to improve performance of ADLs. Patient will demonstrate increase in R shoulder ER and B hips strength to 5/5 during manual muscle testing in order to improve function for home management tasks, leisure / recreation skills, and moderate to heavy functional tasks. Perform overhead motions and bending/lifting with decreased report of symptoms/pain in 4-6 weeks. Perform ADLs and work tasks without pain. Time Frame for Goals and Treatment : 10/31/24 Planned Interventions, Frequency, and Duration: Current Frequency: 1x every other week Duration: 8 weeks Total Number of Visits Planned: 4 Planned Treatment Interventions: Therapeutic exercise (00970), Neuromuscular re-education (40813), Manual therapy (26074), Therapeutic activities (26001), Self-mcfp management (05646), Patient/Family/Caregiver Education, Body Mechanics Training PLAN FOR NEXT VISIT: Assess carry over of HEP, manual to R iraida VALLEJO's Patient demonstrates good understanding of plan of care and treatment. The above goals and plan of care were discussed and agreed upon by patient/family. SUBJECTIVE: R shoulder pain for ~ 2months with worsening symptoms with overhead motions and recreational tasks like racquetball and pickleball. Notes that no ADLs bother it. Pain mostly stays in 1 spot on the outside of the shoulder, but can get some radiation down the arm at times with noted weakness. Notes with hips that they can lock up on him and pain is usually anterior hip. Also notes LBP and L knee pain. Imaging noted moderate OA in R shoulder and B hips, previously diagnosed with L knee severe OA as well. PMH includes diabetes Functional Limitations: sitting, rising from a chair, standing, walking, stair negotiation, bending, heavy exertion, lifting, physical activities, recreational activities, squatting, working Prior Level of Function: Independent without limitations Intake Information: Prescription present Pain: Pain Pain Level: 6 Pain Location: Shoulder - Right Description: Sharp, Aching, Sore Frequency: Intermittent, With movement Additional Pain Information : Location 2 Pain Level 2: 5 Pain Location 2: Hip - Right, Hip - Left Description 2: Sore, Aching, Sharp Frequency 2: Intermittent Post Treatment Pain Post Treatment Pain Level: No Change Post Treatment Pain Score 2: No Change OBJECTIVE MEASURES WITH LEVEL OF FUNCTION: UE AROM R UE AROM: Minimal limitations in all motions, pain with abduction and functional IR; major limitation in scapular UR LE PROM R LE PROM: major limitation in hip flexion, Mod mcallister in IR L LE PROM : Moderate limitation in hip flexion, Major in hip IR UE and Cervical Strength R UE Strength: 5/5 except 4/5 ER L UE Strength: 5/5 LE Strength R LE Strength: 5/5 except 4+/5 with hip abduction and ER L LE Strength: 5/5 except 4+/5 with hip abduction and ER Special Tests - Shoulder Shoulder Special Tests: Empty Can, Solis-Williams, Neer, [place] Empty Can: Right Negative Solis-Williams: Right Positive Neer: Right Positive [place]: Right Negative Special Tests - Hip and Spine Hip and Spine Special Tests: SLR Test, FADDIR Test, Scour Test SLR Test: Right Negative, Left Negative FADDIR Test: Right Positive, Left Positive Scour Test: Right Positive, Left Positive Education: Education Learning/educational needs: Health promotion, Home exercise program, Plan of Care, Changes in Plan of Care Education Provided: Yes, see treatment interventions for education provided Education Mode/Type: Demonstration, Explanation/Discussion Response to Education/Teach Back: States/Identifies TREATMENT: PT Treatment Interventions: Therapeutic Exercise, Self-Detention Management Evaluation Therapeutic Exercise: 1: *Prone quad stretch 3x30 sec/side 2: *SL hip abduction 3x10/side 3: *BTB clamshells 3x10/side 4: *Scapular wall slides 3x10 5: *BTB W's 3x10 6: *Prone T 3x10, 5 sec holds 7: *Prone I 3x10, 5 sec holds Skilled Intervention: Patient was educated in proper exercise technique and purpose for exercises. Skilled judgment was used in selection of appropriate interventions. Provided written instruction for home exercise program to facilitate proper performance and compliance. Correct performance of therapeutic exercises was facilitated with verbal, visual, and tactile cuing. Self-Detention Management: 1: Reviewed imaging of both shoulder and hips, discussed rehab implications. reviewed anatomy at length and discussed proper mechanics at both shoulder and hip, relating to POC Skilled Intervention: Skilled judgment in the selection of proper modification for activity of daily living/home management based on clinical presentation, deficits, and needs. Reviewed patient specific diagnosis in relation to activities of daily living/home management. Activity progression based on professional judgement. Billing * Evaluation Low Complexity: 1 Unit Therapeutic Exercise Treatment Minutes: 15 Self-Care/Home Management Treatment Minutes: 15 Skilled Treatment Time Minutes (timed and untimed codes): 55 Total Session Time (minutes): 55 Session Start Time : 1135 Session Stop Time : 1230 Devaughn Chen PT Program_ID:[id number] Access Code: [email or web address] URL: [email or web address] Date: 08-31-2024 Prepared By: Devaughn Chen Program Notes Exercises - Sidelying Hip Abduction - 1 x daily - 7 x weekly - 3 sets - 10 reps - Clamshell with Resistance - 1 x daily - 7 x weekly - 3 sets - 10 reps - Prone Quadriceps Stretch with Strap - 1 x daily - 7 x weekly - 3 sets - 10 reps - Scapular Wall Slides - 1 x daily - 7 x weekly - 3 sets - 10 reps - Shoulder W - External Rotation with Resistance - 1 x daily - 7 x weekly - 3 sets - 10 reps - Prone Scapular Retraction Arms at Side - 1 x daily - 7 x weekly - 3 sets - 10 reps - Prone Scapular Slide with Shoulder Extension - 1 x daily - 7 x weekly - 3 sets - 10 reps documented in this encounter [facility] 08-28-2024 Telephone encounter Note sent [facility] 08-28-2024 Miscellaneous Notes sent Spouse calls to ask about Trulicity. She reports Dr. Gates wanted her to send a [facility] message to remind him to send a new prescription to increase dose. Patient received [facility] message back saying refill wasn't due as it requested the 1.5 mg current dose. Pended Trulicity 3 mg /0.5 ml dose for review. Smitha Minor RN documented in this encounter [facility] 08-28-2024 Telephone encounter Note Spouse calls to ask about Trulicity. She reports Dr. Gates wanted her to send a [facility] message to remind him to send a new prescription to increase dose. Patient received [facility] message back saying refill wasn't due as it requested the 1.5 mg current dose. Pended Trulicity 3 mg /0.5 ml dose for review. Smitha Minor RN [facility] 08-28-2024 Telephone encounter Note Prescription Refill Information The patient has been identified by name and date of : Yes Caregiver verified no other encounters exist for this prescription request: Yes Caregiver confirmed with patient/requestor that no other refills are due, in the near future, with this provider at this time: Yes The last office visit in the department: 08/14/24 Does the patient have a future office visit with this provider/department: Yes: 12/22/24 Requested Prescriptions Pending Prescriptions Disp Refills dulaglutide (TRULICITY) 1.5 mg/0.5 mL pen injector 2 mL 11 Sig: Inject 1.5 mg subcutaneously one time a week. Inject dose once per week. Discard Pen After Refill not appropriate Carolina Thomas MA August 28, 2024 10:15 AM [facility] 08-28-2024 Miscellaneous Notes Prescription Refill Information The patient has been identified by name and date of : Yes Caregiver verified no other encounters exist for this prescription request: Yes Caregiver confirmed with patient/requestor that no other refills are due, in the near future, with this provider at this time: Yes The last office visit in the department: 08/14/24 Does the patient have a future office visit with this provider/department: Yes: 12/22/24 Requested Prescriptions Pending Prescriptions Disp Refills dulaglutide (TRULICITY) 1.5 mg/0.5 mL pen injector 2 mL 11 Sig: Inject 1.5 mg subcutaneously one time a week. Inject dose once per week. Discard Pen After Refill not appropriate Carolina Thomas MA August 28, 2024 10:15 AM documented in this encounter [facility] 08-14-2024 History of Presen t illness Narrative Radiology Service Progress Note PATIENT NAME: Sivan Tamayo DATE OF SERVICE: August 14, 2024 TIME: 4:29 PM PATIENT IDENTITY VERIFICATION COMPLETED USING TWO (2) IDENTIFIERS: Name and Date of confirmed by patient verbally. FALL SCREENING: Has the patient had 2 falls in the last year or 1 fall with injury or currently using an Ambulatory Assistive Device (Walker, Cane, Wheelchair, Crutches, etc.)? No PATIENT GENDER DATA: Assigned male at PATIENT RELEVANT IMPLANT DATA REVIEWED: Not Applicable PATIENT PRESENTS WITH AN IMPLANTABLE OR ATTACHED CORPORATE SECURITIES RESEARCH ANALYST: No RADIOLOGY DEPARTMENT: General X-ray: Exam(s) Completed: Pelvis X-Ray: Pelvis with Hip Bilateral Upper Extremity X-Ray(s): Shoulder, AP / TRUE AP / AXILLARY right PERIPHERAL IV DATA: Not applicable SIGNED BY: URVASHI Covington) August 14, 2024 4:29 PM documented in this encounter [facility] 08-14-2024 Note HNO ID: [id number] Author: LUCRETIA CHAVIS RT (R) Service: Radiology Author Type: Technologist Type: Progress Notes Filed: 08/14/2024 16:45 Note Text: Radiology Service Progress Note PATIENT NAME: Sivan Tamayo DATE OF SERVICE: August 14, 2024 TIME: 4:29 PM PATIENT IDENTITY VERIFICATION COMPLETED USING TWO (2) IDENTIFIERS: Name and Date of confirmed by patient verbally. FALL SCREENING: Has the patient had 2 falls in the last year or 1 fall with injury or currently using an Ambulatory Assistive Device (Walker, Cane, Wheelchair, Crutches, etc.)? No PATIENT GENDER DATA: Assigned male at PATIENT RELEVANT IMPLANT DATA REVIEWED: Not Applicable PATIENT PRESENTS WITH AN IMPLANTABLE OR ATTACHED CORPORATE SECURITIES RESEARCH ANALYST: No RADIOLOGY DEPARTMENT: General X-ray: Exam(s) Completed: Pelvis X-Ray: Pelvis with Hip Bilateral Upper Extremity X-Ray(s): Shoulder, AP / TRUE AP / AXILLARY right PERIPHERAL IV DATA: Not applicable SIGNED BY: Lucretia Chavis RT(R) August 14, 2024 4:29 PM [facility] 08-14-2024 Note Addended by: Sahil GATES on: 08/14/2024 04:23 PM Modules accepted: Orders [facility] 08-14-2024 Miscellaneous Notes Addended by: WES GATES on: 08/14/2024 04:23 PM Modules accepted: Orders documented in this encounter [facility] 08-14-2024 Note HNO ID: [id number] Author: WES GATES MD Service: ? Author Type: Physician Type: Progress Notes Filed: 08/14/2024 16:18 Note Text: Patient presents with: right shoulder pain: Raising arm up above head is hard. bilateral hip pain: Wonders if this is contributing numbness in toes. Numbness is mostly when sits and lays down. Feels like hips lock up. HPI: Patient presents today for office visit for acute visit. Shoulder has bothered him for a month. Was playing pickelball. Did an overhead hit and noted pain. Lying down makes it worse. No current cracking or popping. No direct trauma. No swelling or redness or warmth. No numbness or tingling down the arm that is new. Not doing anything with the shoulder. Last A1c was 7.7 Hips have bothered him for some time. Catches at times. Pain is in his groin bilaterally. Been going on for some time but getting worse. No trauma. Has sciatic pain on the left frequently. No weakness. No issues with or bladder Needs refill on dm meds. Sugars are at 120's Lowest was 98. MEDICATIONS: Current Outpatient Medications Medication Sig atorvastatin (LIPITOR) 80 mg tablet Take 1 tablet by mouth daily at bedtime. isosorbide mononitrate ER (IMDUR) 30 mg 24 hr tablet Take 1 tablet by mouth once daily. dulaglutide (TRULICITY) 1.5 mg/0.5 mL pen injector Inject 1.5 mg subcutaneously one time a week. Inject dose once per week. Discard Pen After blood sugar diagnostic (BLOOD GLUCOSE TEST) test strip Test blood sugar(s) 1 times daily. Dx: Type 2 DM - Uncontrolled E11.65 Insulin: No clopidogrel (PLAVIX) 75 mg tablet Take 1 tablet by mouth once daily. glimepiride (AMARYL) 2 mg tablet Take 1 tablet by mouth daily with breakfast. pioglitazone (ACTOS) 30 mg tablet Take 1 tablet by mouth once daily. TRUE METRIX GLUCOSE METER as directed. Lancets lancets Test blood sugar(s) 1 times daily. Dx: Type 2 DM - Uncontrolled E11.65 Insulin: No aspirin 81 mg chewable tablet Take 1 tablet by mouth once daily. No current facility-administered medications for this visit. 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 REPAIR NASAL SEPTUM PERFORATN devation REPAIR UMBILICAL HERNIA 01/08/2016 FAMILY HISTORY Problem Relation Age of Onset Diabetes Mother Lung Cancer Mother Amblyopia Father other (gastric CA) Father Diabetes Brother Cataract Brother Coronary Artery Disease Brother Large AMI at age 39 Social History Tobacco Use Smoking status: Never Smokeless tobacco: Never Vaping Use Vaping status: Never Used Substance Use Topics Alcohol use: No Drug use: No Reviewed current medications, allergies, past medical history, surgical history, family history and social history today. REVIEW OF SYSTEMS All other reviewed and negative other than HPI. VITALS: BP 120/82 Pulse 85 Wt 120.7 kg (266 lb) SpO2 97% BMI 36.08 kg/m? Last 4 Encounter Wt Readings: Date: Wt: 06/23/2024 127 kg (279 lb 15.8 oz) 02/17/2024 123.5 kg (272 lb 4.3 oz) 08/12/2023 120.2 kg (264 lb 15.9 oz) 07/13/2023 118.8 kg (262 lb) PHYSICAL EXAMINATION: General appearance: Well appearing, alert, in no acute distress, well-hydrated, well nourished. Skin: Skin color, texture, turgor normal, no suspicious rashes or lesions Shoulder Musculoskeletal Exam Inspection Right Right shoulder inspection is normal. Ecchymosis: none Peripheral edema: none Atrophy: none Deformity: none Symmetry: symmetric Skin tenting: none Prior incision: none Palpation Right Right shoulder palpation is normal. Range of Motion Right Active ROM: normal. Passive ROM: normal. Strength Right Right shoulder strength is normal. Neurovascular Right Right shoulder nerve sensation is normal. Special Tests Right Right shoulder special tests are normal. Hip Musculoskeletal Exam Inspection Right Right hip inspection is normal. Palpation Right Right hip palpation is normal. Range of Motion Right Active ROM: abnormal and pain. Passive ROM: abnormal and pain. Left Left hip range of motion is within functional limits. Limited rotation with his right hip with internal and extenal rotation ASSESSMENT/PLAN: 1. Bilateral hip pain - ICD9: 719.45, ICD10: M25.551, M25.552 (primary diagnosis) - xrays of hip and shoulder. - CONSULT (more content not included)... [facility] 08-14-2024 History of Presen t illness Narrative Patient presents with: right shoulder pain: Raising arm up above head is hard. bilateral hip pain: Wonders if this is contributing numbness in toes. Numbness is mostly when sits and lays down. Feels like hips lock up. HPI: Patient presents today for office visit for acute visit. Shoulder has bothered him for a month. Was playing pickelball. Did an overhead hit and noted pain. Lying down makes it worse. No current cracking or popping. No direct trauma. No swelling or redness or warmth. No numbness or tingling down the arm that is new. Not doing anything with the shoulder. Last A1c was 7.7 Hips have bothered him for some time. Catches at times. Pain is in his groin bilaterally. Been going on for some time but getting worse. No trauma. Has sciatic pain on the left frequently. No weakness. No issues with or bladder Needs refill on dm meds. Sugars are at 120's Lowest was 98. MEDICATIONS: Current Outpatient Medications Medication Sig atorvastatin (LIPITOR) 80 mg tablet Take 1 tablet by mouth daily at bedtime. isosorbide mononitrate ER (IMDUR) 30 mg 24 hr tablet Take 1 tablet by mouth once daily. dulaglutide (TRULICITY) 1.5 mg/0.5 mL pen injector Inject 1.5 mg subcutaneously one time a week. Inject dose once per week. Discard Pen After blood sugar diagnostic (BLOOD GLUCOSE TEST) test strip Test blood sugar(s) 1 times daily. Dx: Type 2 DM - Uncontrolled E11.65 Insulin: No clopidogrel (PLAVIX) 75 mg tablet Take 1 tablet by mouth once daily. glimepiride (AMARYL) 2 mg tablet Take 1 tablet by mouth daily with breakfast. pioglitazone (ACTOS) 30 mg tablet Take 1 tablet by mouth once daily. TRUE METRIX GLUCOSE METER as directed. Lancets lancets Test blood sugar(s) 1 times daily. Dx: Type 2 DM - Uncontrolled E11.65 Insulin: No aspirin 81 mg chewable tablet Take 1 tablet by mouth once daily. No current facility-administered medications for this visit. 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 REPAIR NASAL SEPTUM PERFORATN devation REPAIR UMBILICAL HERNIA 01/08/2016 FAMILY HISTORY Problem Relation Age of Onset Diabetes Mother Lung Cancer Mother Amblyopia Father other (gastric CA) Father Diabetes Brother Cataract Brother Coronary Artery Disease Brother Large AMI at age 39 Social History Tobacco Use Smoking status: Never Smokeless tobacco: Never Vaping Use Vaping status: Never Used Substance Use Topics Alcohol use: No Drug use: No Reviewed current medications, allergies, past medical history, surgical history, family history and social history today. REVIEW OF SYSTEMS All other reviewed and negative other than HPI. VITALS: BP 120/82 Pulse 85 Wt 120.7 kg (266 lb) SpO2 97% BMI 36.08 kg/m Last 4 Encounter Wt Readings: Date: Wt: 06/23/2024 127 kg (279 lb 15.8 oz) 02/17/2024 123.5 kg (272 lb 4.3 oz) 08/12/2023 120.2 kg (264 lb 15.9 oz) 07/13/2023 118.8 kg (262 lb) PHYSICAL EXAMINATION: General appearance: Well appearing, alert, in no acute distress, well-hydrated, well nourished. Skin: Skin color, texture, turgor normal, no suspicious rashes or lesions Shoulder Musculoskeletal Exam Inspection Right Right shoulder inspection is normal. Ecchymosis: none Peripheral edema: none Atrophy: none Deformity: none Symmetry: symmetric Skin tenting: none Prior incision: none Palpation Right Right shoulder palpation is normal. Range of Motion Right Active ROM: normal. Passive ROM: normal. Strength Right Right shoulder strength is normal. Neurovascular Right Right shoulder nerve sensation is normal. Special Tests Right Right shoulder special tests are normal. Hip Musculoskeletal Exam Inspection Right Right hip inspection is normal. Palpation Right Right hip palpation is normal. Range of Motion Right Active ROM: abnormal and pain. Passive ROM: abnormal and pain. Left Left hip range of motion is within functional limits. Limited rotation with his right hip with internal and extenal rotation ASSESSMENT/PLAN: 1. Bilateral hip pain - ICD9: 719.45, ICD10: M25.551, M25.552 (primary diagnosis) - xrays of hip and shoulder. - CONSULT TO PHYSICAL THERAPY - MELOXICAM 15 MG TABLET Discussed risks and benefits of new medication with the patient. Advised them to call if any side effects or questions. 2. Type 2 diabetes mellitus without complication, without long-term current use of insulin (HCC) - ICD9: 250.00, ICD10: E11.9 - PIOGLITAZONE 30 MG TABLET 3. Acute pain of right shoulder - ICD9: 719.41, ICD10: M25.511 - consider ortho. Xrays. - CONSULT TO PHYSICAL THERAPY - MELOXICAM 15 MG TABLET Wes Gates MD documented in this encounter [facility] 07-26-2024 Telephone encounter Note Patient has been identified by name and date of : Yes Pharmacy electronically sent a request for the following prescription(s) If there are any questions regarding this prescription request, call on cell at: [phone] (home) [phone] (cell) RX INSTRUCTIONS: Pharmacy initiated this request. No need to notify patient. Date of last office visit: 05/11/23 Date of last [facility] visit: Visit date not found Date of future office visit: Not Scheduled Patient needs to schedule an appointment. Has not been seen within the last 12 months. Requested Prescriptions Pending Prescriptions Disp Refills atorvastatin (LIPITOR) 80 mg tablet [Pharmacy Med Name: atorvastatin 80 mg tablet] 90 tablet 3 Sig: Take 1 tablet by mouth daily at bedtime. Prescriptions are usually addressed within 24-48 business hours. If patient states they cannot wait 24-48 business hours, please document details. Last 2 Encounter Wt Readings: Date: Wt: 06/23/2024 127 kg (279 lb 15.8 oz) 02/17/2024 123.5 kg (272 lb 4.3 oz) Last 2 Encounter BP Readings: Date: BP: 06/23/2024 136/82 02/17/2024 154/82 CMP: Glucose 158 06/19/2024 BUN 13 06/19/2024 Creatinine 0.80 06/19/2024 Sodium 138 06/19/2024 Potassium 4.4 06/19/2024 Chloride 105 06/19/2024 CO2 22 06/19/2024 Protein, Total 7.4 06/19/2024 Albumin 4.3 06/19/2024 Calcium 8.9 06/19/2024 Alkaline Phosphatase 93 06/19/2024 Bilirubin, Total 0.5 06/19/2024 AST 19 06/19/2024 ALT 24 06/19/2024 Cholesterol, Total (mg/dL) Date Value 06/19/2024 123 07/29/2023 123 07/05/2021 242 HDL Cholesterol (mg/dL) Date Value 06/19/2024 36 07/29/2023 30 07/05/2021 30 LDL Cholesterol (mg/dL) Date Value 06/19/2024 60 07/29/2023 45 07/05/2021 Unable to calculate due to increased Triglycerides. See LDL-Chol, Direct. Triglyceride (mg/dL) Date Value 06/19/2024 134 07/29/2023 238 07/05/2021 467 THALIA [facility] 07-26-2024 Miscellaneous Notes Patient has been identified by name and date of : Yes Pharmacy electronically sent a request for the following prescription(s) If there are any questions regarding this prescription request, call on cell at: [phone] (home) [phone] (cell) RX INSTRUCTIONS: Pharmacy initiated this request. No need to notify patient. Date of last office visit: 05/11/23 Date of last [facility] visit: Visit date not found Date of future office visit: Not Scheduled Patient needs to schedule an appointment. Has not been seen within the last 12 months. Requested Prescriptions Pending Prescriptions Disp Refills atorvastatin (LIPITOR) 80 mg tablet [Pharmacy Med Name: atorvastatin 80 mg tablet] 90 tablet 3 Sig: Take 1 tablet by mouth daily at bedtime. Prescriptions are usually addressed within 24-48 business hours. If patient states they cannot wait 24-48 business hours, please document details. Last 2 Encounter Wt Readings: Date: Wt: 06/23/2024 127 kg (279 lb 15.8 oz) 02/17/2024 123.5 kg (272 lb 4.3 oz) Last 2 Encounter BP Readings: Date: BP: 06/23/2024 136/82 02/17/2024 154/82 CMP: Glucose 158 06/19/2024 BUN 13 06/19/2024 Creatinine 0.80 06/19/2024 Sodium 138 06/19/2024 Potassium 4.4 06/19/2024 Chloride 105 06/19/2024 CO2 22 06/19/2024 Protein, Total 7.4 06/19/2024 Albumin 4.3 06/19/2024 Calcium 8.9 06/19/2024 Alkaline Phosphatase 93 06/19/2024 Bilirubin, Total 0.5 06/19/2024 AST 19 06/19/2024 ALT 24 06/19/2024 Cholesterol, Total (mg/dL) Date Value 06/19/2024 123 07/29/2023 123 07/05/2021 242 HDL Cholesterol (mg/dL) Date Value 06/19/2024 36 07/29/2023 30 07/05/2021 30 LDL Cholesterol (mg/dL) Date Value 06/19/2024 60 07/29/2023 45 07/05/2021 Unable to calculate due to increased Triglycerides. See LDL-Chol, Direct. Triglyceride (mg/dL) Date Value 06/19/2024 134 07/29/2023 238 07/05/2021 467 THALIA Hoover documented in this encounter [facility] 07-19-2024 Telephone encounter Note Patient is requesting a 90 day supply [facility] 07-19-2024 Miscellaneous Notes Patient is requesting a 90 day supply Pharmacy verified in [facility] Patient has been identified by name and date of : Yes Patient aware RX will be sent to pharmacy. No need to notify patient. Patient phones for refill(s): Requested Prescriptions Pending Prescriptions Disp Refills isosorbide mononitrate ER (IMDUR) 30 mg 24 hr tablet 30 tablet 11 Sig: Take 1 tablet by mouth once daily. Date of last office visit : 02/17/2024 Date of next office visit : 11/03/2024 Last 2 Encounter Wt Readings: Date: Wt: 06/23/2024 127 kg (279 lb 15.8 oz) 02/17/2024 123.5 kg (272 lb 4.3 oz) Not applicable Please advise. Celestina Bridges documented in this encounter [facility] 07-19-2024 Telephone encounter Note Pharmacy verified in Epic Patient has been identified by name and date of : Yes Patient aware RX will be sent to pharmacy. No need to notify patient. Patient phones for refill(s): Requested Prescriptions Pending Prescriptions Disp Refills isosorbide mononitrate ER (IMDUR) 30 mg 24 hr tablet 30 tablet 11 Sig: Take 1 tablet by mouth once daily. Date of last office visit : 02/17/2024 Date of next office visit : 11/03/2024 Last 2 Encounter Wt Readings: Date: Wt: 06/23/2024 127 kg (279 lb 15.8 oz) 02/17/2024 123.5 kg (272 lb 4.3 oz) Not applicable Please advise. Celestina Bridges [facility] 07-06-2024 Note HNO ID: [id number] Author: JACOB MAYS, XIAO Service: ? Author Type: JOB ORDER CLERK Type: Progress Notes Filed: 07/06/2024 09:55 Note Text: 1. Type 2 diabetes mellitus without retinopathy (HCC) Risk of diabetic changes and vision loss can be minimized by tight control of blood sugar, blood pressure, and cholesterol levels. Educated patient to continue care with primary care doctor and/or concrete carpenter to maintain optimum levels as they are important to avoid ocular complications. Encouraged patient to call the office immediately with any changes to vision or visual concerns. Advised to not wait until the next scheduled exam. 2. Dry eye syndrome of bilateral lacrimal glands Recommended warm compresses and artificial tears prn 3. Regular astigmatism of both eyes 4. Presbyopia Finalized spec rx but okay to continue with readers Follow-up in 1 year for diabetic eye exam or sooner as needed Jacob Mays, OD July 06, 2024 9:53 AM [facility] 07-06-2024 History of Presen t illness Narrative 1. Type 2 diabetes mellitus without retinopathy (HCC) Risk of diabetic changes and vision loss can be minimized by tight control of blood sugar, blood pressure, and cholesterol levels. Educated patient to continue care with primary care doctor and/or concrete carpenter to maintain optimum levels as they are important to avoid ocular complications. Encouraged patient to call the office immediately with any changes to vision or visual concerns. Advised to not wait until the next scheduled exam. 2. Dry eye syndrome of bilateral lacrimal glands Recommended warm compresses and artificial tears prn 3. Regular astigmatism of both eyes 4. Presbyopia Finalized spec rx but okay to continue with readers Follow-up in 1 year for diabetic eye exam or sooner as needed Jacob Mays, OD July 06, 2024 9:53 AM documented in this encounter [facility] 06-23-2024 History of Presen t illness Narrative Patient presents with: 6 Month Exam HPI: Patient presents today for office visit for follow up. DM: Does not check his sugars. Does not watch his diet. Plays pickleball for exercise. Having blurred vision that comes and goes. Left eye constantly watering and feels goopy X 6 months. Seeing ophthalmology on 07/06/24. No unexpected weight loss. Since starting Trfosterity has gained weight. Makes him feel hungry. Some polydipsia. Mostly at night. Some polyuria. No foot lesions. Admits to numbness in his toes. Comes and goes Would like to discuss alternative to Glimepiride. Discussed risks and benefits of meds. Discussed importance of getting better control before we ever get rid of that. Was given advice that this medication may not be the best for metals analyst use. HLD: No myalgias. Follows with Cardiology. Latest Ref Rng 06/19/2024 WBC 3.70 - 11.00 k/uL 4.60 RBC 4.20 - 6.00 m/uL 5.21 Hemoglobin 13.0 - 17.0 g/dL 15.1 Hematocrit 39.0 - 51.0 % 46.1 MCV 80.0 - 100.0 fL 88.5 MCH 26.0 - 34.0 pg 29.0 MCHC 30.5 - 36.0 g/dL 32.8 RDW-CV 11.5 - 15.0 % 13.2 Platelet Count 150 - 400 k/uL 200 MPV 9.0 - 12.7 fL 9.6 Neut% % 54.2 Abs Neut (ANC) 1.45 - 7.50 k/uL 2.49 Lymph% % 32.4 Abs Lymph 1.00 - 4.00 k/uL 1.49 [place]eton% % 9.3 Abs [place] <0.87 k/uL 0.43 Eosin% % 3.5 Abs Eosin <0.46 k/uL 0.16 Baso% % 0.4 Abs Baso <0.11 k/uL <0.03 Immature Gran % % 0.2 IMMATURE GRANS (ABS) <0.10 k/uL <0.03 NRBC /100 WBC 0.0 Absolute nRBC <0.01 k/uL <0.01 DTYPE Auto Protein, Total 6.3 - 8.0 g/dL 7.4 Albumin 3.9 - 4.9 g/dL 4.3 Calcium 8.5 - 10.2 mg/dL 8.9 Bilirubin, Total 0.2 - 1.3 mg/dL 0.5 Alkaline Phosphatase 38 - 113 U/L 93 AST 14 - 40 U/L 19 ALT 10 - 54 U/L 24 Glucose 74 - 99 mg/dL 158 (H) BUN 9 - 24 mg/dL 13 Creatinine 0.73 - 1.22 mg/dL 0.80 Sodium 136 - 144 mmol/L 138 Potassium 3.7 - 5.1 mmol/L 4.4 Chloride 98 - 107 mmol/L 105 CO2 22 - 30 mmol/L 22 Anion Gap 8 - 15 mmol/L 11 eGFR >=60 mL/min/1.73m 106 Cholesterol, Total <200 mg/dL 123 Triglyceride <150 mg/dL 134 HDL Cholesterol >39 mg/dL 36 (L) Non HDL Cholesterol <130 mg/dL 87 Fasting Time hrs 12 VLDL Cholesterol <30 mg/dL 27 TC:HDL Ratio <5.10 3.42 LDL Cholesterol <100 mg/dL 60 LDL:HDL Ratio <2.54 1.67 Creatinine, Ur Random (UCRR) 20.0 - 300.0 mg/dL 180.3 Albumin, Urine Random mg/L <12.0 Albumin/Creat Ratio <30 mg/g <7 Hemoglobin A1C 4.3 - 5.6 % 7.7 (H) Estimated Average Glucose mg/dL 174 MEDICATIONS: Current Outpatient Medications Medication Sig dulaglutide (ARACELYITY) 0.75 mg/0.5 mL pen injector Inject 0.75 mg subcutaneously one time a week. Inject dose once per week. Discard Pen After blood sugar diagnostic (BLOOD GLUCOSE TEST) test strip Test blood sugar(s) 1 times daily. Dx: Type 2 DM - Uncontrolled E11.65 Insulin: No isosorbide mononitrate ER (IMDUR) 30 mg 24 hr tablet Take 1 tablet by mouth once daily. clopidogrel (PLAVIX) 75 mg tablet Take 1 tablet by mouth once daily. glimepiride (AMARYL) 2 mg tablet Take 1 tablet by mouth daily with breakfast. pioglitazone (ACTOS) 30 mg tablet Take 1 tablet by mouth once daily. TRUE METRIX GLUCOSE METER as directed. atorvastatin (LIPITOR) 80 mg tablet Take 1 tablet by mouth daily at bedtime. Lancets lancets Test blood sugar(s) 1 times daily. Dx: Type 2 DM - Uncontrolled E11.65 Insulin: No aspirin 81 mg chewable tablet Take 1 tablet by mouth once daily. No current facility-administered medications for this visit. 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 REPAIR NASAL SEPTUM PERFORATN devation REPAIR UMBILICAL HERNIA 01/08/2016 FAMILY HISTORY Problem Relation Age of Onset Diabetes Mother Lung Cancer Mother Amblyopia Father other (gastric CA) Father Diabetes Brother Cataract Brother Coronary Artery Disease Brother Large AMI at age 39 Social History Tobacco Use Smoking status: Never Smokeless tobacco: Never Vaping Use Vaping status: Never Used Substance Use Topics Alcohol use: No Drug use: No Reviewed current medications, allergies, past medical history, surgical history, family history and social history today. REVIEW OF SYSTEMS All other reviewed and negative other than HPI. HEALTH MAINTENANCE: Reviewed health maintenance issues today and recommended the following in detail. Depression Screening Never done Anxiety Screening Never done BP Controlled (<130/80) Never done Pneumococcal Vaccine: 50+(1 of 2 - PCV) Never done Dilated Retinal Exam -sees her the 3oth Influenza Vaccine(1) Never done Covid-19 Vaccine( - 2023- season) Never done Diabetic Foot Exam due on 07/13/2024 VITALS: BP 136/82 Pulse 84 Ht 182.9 cm (6') Wt 127 kg (279 lb 15.8 oz) SpO2 97% BMI 37.97 kg/m Last 4 Encounter Wt Readings: Date: Wt: 02/17/2024 123.5 kg (272 lb 4.3 oz) 08/12/2023 120.2 kg (264 lb 15.9 oz) 07/13/2023 118.8 kg (262 lb) 05/11/2023 114.3 kg (252 lb) PHYSICAL EXAMINATION: General appearance: Well appearing, alert, in no acute distress, well-hydrated, well nourished. Skin: Skin color, texture, turgor normal, no suspicious rashes or lesions Head: Normocephalic, no masses, lesions, tenderness or abnormalities Lungs: Lungs clear to auscultation. No wheezing, rhonchi, rales Heart: RRR without murmur, gallop, or rubs. No ectopy Abdomen: Normal abdominal exam, Abdomen soft, non-tender. Bowel sounds normal. No masses, organomegaly Extremities: No deformities, edema, skin discoloration, clubbing or cyanosis. Good capillary refill. Musculoskeletal: No joint swelling, deformity, or tenderness Feet:Shoes and socks removed, No deformities, ulcers, calluses, normal distal pulses, and sensitive to 10 gm monofilament ASSESSMENT/PLAN: 1. 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) - ICD9: 414.01, 411.1, ICD10: I25.110 (primary diagnosis) - continue to follow up. 2. Type 2 diabetes mellitus without complication, without long-term current use of insulin (HCC) - ICD9: 250.00, ICD10: E11.9 - Controlled - Continue current medications - DULAGLUTIDE 1.5 MG/0.5 ML SUBCUTANEOUS PEN INJECTOR 3. Encounter for screening examination for other mental health and behavioral disorders - ICD9: V79.8, ICD10: Z13.39 - ANXIETY SCREENING 4. Screening for depression - ICD9: V79.0, ICD10: Z13.31 - DEPRESSION SCREENING 5. Mixed hyperlipidemia - ICD9: 272.2, ICD10: E78.2 - Controlled - Continue current medications - Counseled on healthy diet and regular exercise 6. Essential hypertension - ICD9: 401.9, ICD10: I10 - Controlled - Continue current medications 7. Obesity (BMI 30-39.9) - ICD9: 278.00, ICD10: E66.9 - stable. Wes Gates MD documented in this encounter [facility] 06-23-2024 Note HNO ID: [id number] Author: WES GATES MD Service: ? Author Type: Physician Type: Progress Notes Filed: 06/23/2024 11:34 Note Text: Patient presents with: 6 Month Exam HPI: Patient presents today for office visit for follow up. DM: Does not check his sugars. Does not watch his diet. Plays pickleball for exercise. Having blurred vision that comes and goes. Left eye constantly watering and feels goopy X 6 months. Seeing ophthalmology on 07/06/24. No unexpected weight loss. Since starting Trulicity has gained weight. Makes him feel hungry. Some polydipsia. Mostly at night. Some polyuria. No foot lesions. Admits to numbness in his toes. Comes and goes Would like to discuss alternative to Glimepiride. Discussed risks and benefits of meds. Discussed importance of getting better control before we ever get rid of that. Was given advice that this medication may not be the best for mcc use. HLD: No myalgias. Follows with Cardiology. Latest Ref Rng 06/19/2024 WBC 3.70 - 11.00 k/uL 4.60 RBC 4.20 - 6.00 m/uL 5.21 Hemoglobin 13.0 - 17.0 g/dL 15.1 Hematocrit 39.0 - 51.0 % 46.1 MCV 80.0 - 100.0 fL 88.5 MCH 26.0 - 34.0 pg 29.0 MCHC 30.5 - 36.0 g/dL 32.8 RDW-CV 11.5 - 15.0 % 13.2 Platelet Count 150 - 400 k/uL 200 MPV 9.0 - 12.7 fL 9.6 Neut% % 54.2 Abs Neut (ANC) 1.45 - 7.50 k/uL 2.49 Lymph% % 32.4 Abs Lymph 1.00 - 4.00 k/uL 1.49 Teton% % 9.3 Abs Teton <0.87 k/uL 0.43 Eosin% % 3.5 Abs Eosin <0.46 k/uL 0.16 Baso% % 0.4 Abs Baso <0.11 k/uL <0.03 Immature Gran % % 0.2 IMMATURE GRANS (ABS) <0.10 k/uL <0.03 NRBC /100 WBC 0.0 Absolute nRBC <0.01 k/uL <0.01 DTYPE Auto Protein, Total 6.3 - 8.0 g/dL 7.4 Albumin 3.9 - 4.9 g/dL 4.3 Calcium 8.5 - 10.2 mg/dL 8.9 Bilirubin, Total 0.2 - 1.3 mg/dL 0.5 Alkaline Phosphatase 38 - 113 U/L 93 AST 14 - 40 U/L 19 ALT 10 - 54 U/L 24 Glucose 74 - 99 mg/dL 158 (H) BUN 9 - 24 mg/dL 13 Creatinine 0.73 - 1.22 mg/dL 0.80 Sodium 136 - 144 mmol/L 138 Potassium 3.7 - 5.1 mmol/L 4.4 Chloride 98 - 107 mmol/L 105 CO2 22 - 30 mmol/L 22 Anion Gap 8 - 15 mmol/L 11 eGFR >=60 mL/min/1.73m? 106 Cholesterol, Total <200 mg/dL 123 Triglyceride <150 mg/dL 134 HDL Cholesterol >39 mg/dL 36 (L) Non HDL Cholesterol <130 mg/dL 87 Fasting Time hrs 12 VLDL Cholesterol <30 mg/dL 27 TC:HDL Ratio <5.10 3.42 LDL Cholesterol <100 mg/dL 60 LDL:HDL Ratio <2.54 1.67 Creatinine, Ur Random (UCRR) 20.0 - 300.0 mg/dL 180.3 Albumin, Urine Random mg/L <12.0 Albumin/Creat Ratio <30 mg/g <7 Hemoglobin A1C 4.3 - 5.6 % 7.7 (H) Estimated Average Glucose mg/dL 174 MEDICATIONS: Current Outpatient Medications Medication Sig dulaglutide (TRULICITY) 0.75 mg/0.5 mL pen injector Inject 0.75 mg subcutaneously one time a week. Inject dose once per week. Discard Pen After blood sugar diagnostic (BLOOD GLUCOSE TEST) test strip Test blood sugar(s) 1 times daily. Dx: Type 2 DM - Uncontrolled E11.65 Insulin: No isosorbide mononitrate ER (IMDUR) 30 mg 24 hr tablet Take 1 tablet by mouth once daily. clopidogrel (PLAVIX) 75 mg tablet Take 1 tablet by mouth once daily. glimepiride (AMARYL) 2 mg tablet Take 1 tablet by mouth daily with breakfast. pioglitazone (ACTOS) 30 mg tablet Take 1 tablet by mouth once daily. TRUE METRIX GLUCOSE METER as directed. atorvastatin (LIPITOR) 80 mg tablet Take 1 tablet by mouth daily at bedtime. Lancets lancets Test blood sugar(s) 1 times daily. Dx: Type 2 DM - Uncontrolled E11.65 Insulin: No aspirin 81 mg chewable tablet Take 1 tablet by mouth once daily. No current facility-administered medications for this visit. 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 REPAIR NASAL SEPTUM PERFORATN devation REPAIR UMBILICAL HERNIA 01/08/2016 FAMILY HISTORY Problem Relation Age of Onset Diabetes Mother Lung Cancer Mother Amblyopia Father other (gastric CA) Father Diabetes Brother Cataract Brother Coronary Artery Disease Brother Large AMI at age 39 Social History Tobacco Use Smoking status: Never Smokeless tobacco: Never Vaping Use Vaping status: Never Used Substance Use Topics Alcohol use: No Drug use: No Reviewed current medications, allergies, past medical history, surgical history, family history and social history today. REVIEW OF SYSTEMS All other reviewed and n (more content not included)... [facility] 06-16-2024 Miscellaneous Notes Please see pt message. Pt had last labs completed 07/29/23. A1c at that time was 8.0. Scheduled for a 6 mo f/u on 06/23/24. Pended orders. Please review and file and update pt via [employer] to complete fasting prior to his appt and keep appt as scheduled. Ebony Valdes MA documented in this encounter [facility] 06-16-2024 Telephone encounter Note Please see pt message. Pt had last labs completed 07/29/23. A1c at that time was 8.0. Scheduled for a 6 mo f/u on 06/23/24. Pended orders. Please review and file and update pt via [facility] to complete fasting prior to his appt and keep appt as scheduled. Ebony Valdes MA [facility] 02-17-2024 Note HNO ID: [id number] Author: JOVANNA DUNLAP DO Service: ? Author Type: Physician Type: Progress Notes Filed: 02/17/2024 10:36 Note Text: [facility] Department of Cardiovascular Medicine SECTION OF [facility] OUTPATIENT VISIT DATE February 17, 2024 OUTPATIENT VISIT TYPE ESTABLISHED PATIENT Name: Sivan Tamayo : 1970 Date: February 17, 2024 PRIMARY CARE PHYSICIAN: Wes Gates [address] [place] [address] REFERRING PHYSICIAN: Haile Pollock [id number] [facility] [address] CHIEF COMPLAINT: Patient presents with: Cardiology Follow Up : Stopped Imdur at last visit - still fatigued, intermittent SOB while sitting. IMPRESSION / PLAN: 1. Coronary artery disease status post stent placement to RCA/PDA, PLV, OM1 and diagonal branch on April 27, 2023. Patient is doing very well with no evidence of anginal symptoms and does have occasional atypical chest pains which is noncardiac. I will plan on stress testing approximately April 2024. Patient will continue to his exercise protocol and if any evidence of recurrent anginal symptoms. Will continue aspirin and Plavix for at least another 6 months and perhaps even longer depending his tolerance. Does have some tendency of getting nosebleeds particularly when he takes ibuprofen. 2. Hyperlipidemia. Patient is tolerating atorvastatin 80 mg daily with excellent LDL at goal. 3. History of ADD. Patient was taken off his ADD medications after his findings of coronary artery disease but has had some definite mental issues and forgetfulness that are concerning. I feel that he is cleared to resume his ADD medication at this point and will discuss with his family physician. 4. Diabetes mellitus. Patient does have significant elevations in his blood sugars but he appears to not do well with even blood sugars in the 130s and has hypoglycemic symptoms. He is to discuss with Dr. Whitehead consider endocrinology consultation. Follow Up Instructions Return in about 6 months (around 08/16/2024). ORDERS FOR TODAY'S VISIT: Office Visit on 02/17/24 isosorbide mononitrate ER (IMDUR) 30 mg 24 hr tablet HISTORY OF PRESENT ILLNESS: Sivan Tamayo is an 53 year old male with a past history of coronary artery disease status post multivessel stenting in April 2023 after presenting to [facility] with chest pain and subsequent findings with diagnostic cardiac catheterization and underwent stent placement at [facility]. He presents today for follow-up with his . He has no evidence of recurrent anginal symptoms which he does know, but has had some atypical left-sided chest pain/cramping. Is also had some difficulties with memory loss since he has been off his ADD medication. He denies any shortness of breath, syncope or near syncope or lower extremity edema. PAST MEDICAL HISTORY 08/28/2011: ADD (attention deficit disorder) No date: 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) No date: Diabetes (HCC) 08/28/2011: Hypertension No date: Mixed hyperlipidemia No date: Obesity No date: S/P angioplasty with stent PAST SURGICAL HISTORY 06/07/2014: ARTHROSCOPY KNEE DIAGNOSTIC W/WO SYNOVIAL BX SPX; Left Comment: meniscus No date: OSTECTOMY CALCANEUS SPUR W/WO PLNTAR FASCIAL RLS; Left 04/27/2023: PCI/STENT Comment: [facility] 04/27/23 PCI x3 (diagonal, pda and plv1). No date: REPAIR NASAL SEPTUM PERFORATN Comment: devation 01/08/2016: REPAIR UMBILICAL HERNIA SOCIAL HISTORY Social History Tobacco Use Smoking status: Never Smokeless tobacco: Never Vaping Use Vaping status: Never Used Substance Use Topics Alcohol use: No Drug use: No FAMILY HISTORY Problem Relation Age of Onset Diabetes Mother Lung Cancer Mother Amblyopia Father other (gastric CA) Father Diabetes Brother Cataract Brother Coronary Artery Disease Brother Large AMI at age 39 ALLERGIES: ALLERGIES Allergen Reactions Amlodipine Other: See Comments Facial numbness MEDICATIONS: clopidogrel (PLAVIX) 75 mg tablet Take 1 tablet by mouth once daily. glimepiride (AMARYL) 2 mg tablet Take 1 tablet by mouth daily with breakfast. pioglitazone (ACTOS) 30 mg tablet Take 1 tablet by mouth once daily. TRUE METRIX GLUCOSE METER as directed. dulaglutide (TRULICITY) 0.75 mg/0.5 mL pen injector Inject 0.75 mg subcutaneously one time a week. Inject dose once per week. Discard Pen After atorvastatin (LIPITOR) 80 mg tablet Take 1 tablet by mouth daily at bedtime. blood sugar diagnostic (BLOOD GLUCOSE TEST) test strip Test blood sugar(s) 1 times daily. Dx: Type 2 DM - Uncontrolled E11.65 Insulin: No Lancets lancets Test blood sugar(s) 1 times daily. Dx: Type 2 DM - Uncontrolled E11.65 Insulin: No isosorbide mononitrate ER (more content not included)... [facility] 02-17-2024 History of Presen t illness Narrative Images from the original note were not included. [facility] Department of Cardiovascular Medicine [facility] OUTPATIENT VISIT DATE February 17, 2024 OUTPATIENT VISIT TYPE ESTABLISHED PATIENT Name: Sivan Tamayo : 1970 Date: February 17, 2024 PRIMARY CARE PHYSICIAN: Wes Gates [address] [place] [address] REFERRING PHYSICIAN: Haile Pollock [id number] [facility] [id number] CHIEF COMPLAINT: Patient presents with: Cardiology Follow Up : Stopped Imdur at last visit - still fatigued, intermittent SOB while sitting. IMPRESSION / PLAN: 1. Coronary artery disease status post stent placement to RCA/PDA, PLV, OM1 and diagonal branch on April 27, 2023. Patient is doing very well with no evidence of anginal symptoms and does have occasional atypical chest pains which is noncardiac. I will plan on stress testing approximately April 2024. Patient will continue to his exercise protocol and if any evidence of recurrent anginal symptoms. Will continue aspirin and Plavix for at least another 6 months and perhaps even longer depending his tolerance. Does have some tendency of getting nosebleeds particularly when he takes ibuprofen. 2. Hyperlipidemia. Patient is tolerating atorvastatin 80 mg daily with excellent LDL at goal. 3. History of ADD. Patient was taken off his ADD medications after his findings of coronary artery disease but has had some definite mental issues and forgetfulness that are concerning. I feel that he is cleared to resume his ADD medication at this point and will discuss with his family physician. 4. Diabetes mellitus. Patient does have significant elevations in his blood sugars but he appears to not do well with even blood sugars in the 130s and has hypoglycemic symptoms. He is to discuss with Dr. Whitehead consider endocrinology consultation. Follow Up Instructions Return in about 6 months (around 08/16/2024). ORDERS FOR TODAY'S VISIT: Office Visit on 02/17/24 isosorbide mononitrate ER (IMDUR) 30 mg 24 hr tablet HISTORY OF PRESENT ILLNESS: Sivan Tamayo is an 53 year old male with a past history of coronary artery disease status post multivessel stenting in April 2023 after presenting to [facility] with chest pain and subsequent findings with diagnostic cardiac catheterization and underwent stent placement at [facility]. He presents today for follow-up with his . He has no evidence of recurrent anginal symptoms which he does know, but has had some atypical left-sided chest pain/cramping. Is also had some difficulties with memory loss since he has been off his ADD medication. He denies any shortness of breath, syncope or near syncope or lower extremity edema. PAST MEDICAL HISTORY 08/28/2011: ADD (attention deficit disorder) No date: 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) No date: Diabetes (HCC) 08/28/2011: Hypertension No date: Mixed hyperlipidemia No date: Obesity No date: S/P angioplasty with stent PAST SURGICAL HISTORY 06/07/2014: ARTHROSCOPY KNEE DIAGNOSTIC W/WO SYNOVIAL BX SPX; Left Comment: meniscus No date: OSTECTOMY CALCANEUS SPUR W/WO PLNTAR FASCIAL RLS; Left 04/27/2023: PCI/STENT Comment: [facility] 04/27/23 PCI x3 (diagonal, pda and plv1). No date: REPAIR NASAL SEPTUM PERFORATN Comment: devation 01/08/2016: REPAIR UMBILICAL HERNIA SOCIAL HISTORY Social History Tobacco Use Smoking status: Never Smokeless tobacco: Never Vaping Use Vaping status: Never Used Substance Use Topics Alcohol use: No Drug use: No FAMILY HISTORY Problem Relation Age of Onset Diabetes Mother Lung Cancer Mother Amblyopia Father other (gastric CA) Father Diabetes Brother Cataract Brother Coronary Artery Disease Brother Large AMI at age 39 ALLERGIES: ALLERGIES Allergen Reactions Amlodipine Other: See Comments Facial numbness MEDICATIONS: clopidogrel (PLAVIX) 75 mg tablet Take 1 tablet by mouth once daily. glimepiride (AMARYL) 2 mg tablet Take 1 tablet by mouth daily with breakfast. pioglitazone (ACTOS) 30 mg tablet Take 1 tablet by mouth once daily. TRUE METRIX GLUCOSE METER as directed. dulaglutide (TRULICITY) 0.75 mg/0.5 mL pen injector Inject 0.75 mg subcutaneously one time a week. Inject dose once per week. Discard Pen After atorvastatin (LIPITOR) 80 mg tablet Take 1 tablet by mouth daily at bedtime. blood sugar diagnostic (BLOOD GLUCOSE TEST) test strip Test blood sugar(s) 1 times daily. Dx: Type 2 DM - Uncontrolled E11.65 Insulin: No Lancets lancets Test blood sugar(s) 1 times daily. Dx: Type 2 DM - Uncontrolled E11.65 Insulin: No isosorbide mononitrate ER (IMDUR) 30 mg 24 hr tablet Take 1 tablet by mouth once daily. aspirin 81 mg chewable tablet Take 1 tablet by mouth once daily. REVIEW OF SYSTEMS: GENERAL: Negative for: Weight loss or gain, Fever or Chills NECK: Negative for: Swelling, Pain, Stiffness RESPIRATORY: Negative for: Cough, Blood in Sputum GASTROINTESTINAL: Negative for: Trouble swallowing, Heartburn, Change in bowel habits, Blood in stool, Dark black stools MUSCULOSKELETAL: Negative for: Severe Muscle or joint pain, Stiffness , Joint swelling NEUROLOGIC/PSYCHIATRIC: Negative for: Paralysis, Numbness, Tingling, Tremor SKIN: Negative for: Rashes, Itching HEMATOLOGICAL/LYMPHATIC: Negative for: Easy bruising , Easy bleeding ENDOCRINE: Negative for: Heat or cold intolerance, Excessive sweating, Frequent urination All other review of systems, per history of present illness. PHYSICAL EXAMINATION: BP 154/82 Pulse 76 Ht 182.9 cm (6') Wt 123.5 kg (272 lb 4.3 oz) SpO2 98% BMI 36.93 kg/m Last 2 Encounter Wt Readings: Date: Wt: 08/12/2023 120.2 kg (264 lb 15.9 oz) 07/13/2023 118.8 kg (262 lb) General: Well appearing, in no acute distress. Skin: No clubbing, no cyanosis. Eyes: Extra ocular movements intact Oropharynx: No gross abnormalities Neck: No jugular venous distention, no carotid bruits, carotids have a normal upstroke, no palpable thyromegaly. Lungs: Clear to auscultation bilaterally, no wheezing or rhonchi. Heart: Regular rhythm, PMI not displaced, S1, S2, no S3, no S4, no murmur. Abdomen: Soft, nontender, bowel sounds normal, no palpable organomegaly, no bruits. Extremities: No peripheral edema . +2 distal pulses bilaterally. Neuro: Oriented to person, place and time, alert, cooperative. CARDIOVASCULAR MEDICINE TESTING: I have personally reviewed No Cardiovascular testing perfomed today. Jovanna Dunlap DO, [facility] Staff Cost Control Specialist Jovanna and Sophie [facility] Dept. of Cardiovascular Medicine [facility], [facility] This document was generated using the assistance of voice recognition software. If there are any errors of spelling, grammar, syntax or meaning, please feel free to contact me directly at anytime. documented in this encounter [facility] 01-21-2024 Telephone encounter Note Spoke with pt. Symptoms started a couple months ago. Has only had CP twice. Happened the same day. Stated it was in his upper chest. Did not radiate. CP last a couple mins then went away. Has SOB with exertion (climbing a set of stairs). Started around the time he had his CP episode. Does not take BP/HR daily. Stated compliance with Plavix. Denied lightheadedness, dizziness. Advised pt if symptoms worsen, experience CP, SOB at rest, to go to the ER for evaluation. ____ BRIDGETT: 08/12/[address] Dunlap 1. Coronary artery disease status post stent placement to RCA/PDA, PLV, OM1 and diagonal branch on April 27, 2023. Patient is doing very well with no evidence of anginal symptoms and does have occasional atypical chest pains which is noncardiac. I will plan on stress testing approximately April 2024. Patient will continue to his exercise protocol and if any evidence of recurrent anginal symptoms, which he does know, he will notify me. 2. Hyperlipidemia. Patient is tolerating atorvastatin 80 mg daily with excellent LDL at goal. NOV: 02/17/[address] Dunlap [facility] 01-21-2024 Miscellaneous Notes Spoke with pt. Symptoms started a couple months ago. Has only had CP twice. Happened the same day. Stated it was in his upper chest. Did not radiate. CP last a couple mins then went away. Has SOB with exertion (climbing a set of stairs). Started around the time he had his CP episode. Does not take BP/HR daily. Stated compliance with Plavix. Denied lightheadedness, dizziness. Advised pt if symptoms worsen, experience CP, SOB at rest, to go to the ER for evaluation. ____ BRIDGETT: 08/12/[address] Dunlap 1. Coronary artery disease status post stent placement to RCA/PDA, PLV, OM1 and diagonal branch on April 27, 2023. Patient is doing very well with no evidence of anginal symptoms and does have occasional atypical chest pains which is noncardiac. I will plan on stress testing approximately April 2024. Patient will continue to his exercise protocol and if any evidence of recurrent anginal symptoms, which he does know, he will notify me. 2. Hyperlipidemia. Patient is tolerating atorvastatin 80 mg daily with excellent LDL at goal. NOV: 02/17/[address] Dunlap PT calling today for a sooner appointment, nothing available on provider and PATIENT CASE MANAGER schedules. PT placed on wait list. PT has been experiencing symptoms of what he felt before his surgery last year for heart blockages. PT is concerned he may have some blockages now. PT has been more winded, increased sweating, some dizziness. PT does not check BP at home. PT is requesting a return call to advise of symptoms at [phone] documented in this encounter [facility] 01-21-2024 Telephone encounter Note PT calling today for a sooner appointment, nothing available on provider and PATIENT CASE MANAGER schedules. PT placed on wait list. PT has been experiencing symptoms of what he felt before his surgery last year for heart blockages. PT is concerned he may have some blockages now. PT has been more winded, increased sweating, some dizziness. PT does not check BP at home. PT is requesting a return call to advise of symptoms at [phone] [facility] 09-08-2023 Miscellaneous Notes Patient has been identified by name and date of : Yes, Provider Dr Bonner Date 09/08/2023 Time 9:37 am Requested Prescriptions Pending Prescriptions Disp Refills glimepiride (AMARYL) 2 mg tablet 90 tablet 3 Sig: Take 1 tablet by mouth daily with breakfast. RX INSTRUCTIONS: Patient aware RX will be sent to pharmacy. No need to notify patient. Alyce Ang MA Bridgett 07/2023 Nov Patient needs scheduled for 01/2024 6 months Last refill: 12/2022 documented in this encounter [facility] 08-12-2023 History of Presen t illness Narrative [facility] Department of Cardiovascular Medicine SECTION OF [facility] OUTPATIENT VISIT DATE August 12, 2023 OUTPATIENT VISIT TYPE ESTABLISHED PATIENT Name: Sivan Tamayo : 1970 Date: August 12, 2023 PRIMARY CARE PHYSICIAN: Wes Gates [address] [place] [address] REFERRING PHYSICIAN: Haile Pollock [id number] [facility] [address] CHIEF COMPLAINT: Patient presents with: CARD Follow Up 3 Month: [facility] 04/27/23 PCI x3 (diagonal, pda and plv1). Pt states Dr Pollock told him to stop Imdur - has not been taking this medication. Does he need cardiac rehab? IMPRESSION / PLAN: 1. Coronary artery disease status post stent placement to RCA/PDA, PLV, OM1 and diagonal branch on April 27, 2023. Patient is doing very well with no evidence of anginal symptoms and does have occasional atypical chest pains which is noncardiac. I will plan on stress testing approximately April 2024. Patient will continue to his exercise protocol and if any evidence of recurrent anginal symptoms, which he does know, he will notify me. 2. Hyperlipidemia. Patient is tolerating atorvastatin 80 mg daily with excellent LDL at goal. 3. History of ADD. Patient was taken off his ADD medications after his findings of coronary artery disease but has had some definite mental issues and forgetfulness that are concerning. I feel that he is cleared to resume his ADD medication at this point and will discuss with his family physician. 4. Diabetes mellitus. Patient does have significant elevations in his blood sugars but he appears to not do well with even blood sugars in the 130s and has hypoglycemic symptoms. He is to discuss with Dr. Whitehead consider endocrinology consultation. Follow Up Instructions Return in about 6 months (around 02/12/2024). ORDERS FOR TODAY'S VISIT: No orders found for this visit on 08/12/23. HISTORY OF PRESENT ILLNESS: Sivan Tamayo is an 53 year old male with a past history of coronary artery disease status post multivessel stenting in April 2023 after presenting to [facility] with chest pain and subsequent findings with diagnostic cardiac catheterization and underwent stent placement at [facility]. He presents today for follow-up with his . He has no evidence of recurrent anginal symptoms which he does know, but has had some atypical left-sided chest pain/cramping. Is also had some difficulties with memory loss since he has been off his ADD medication. He denies any shortness of breath, syncope or near syncope or lower extremity edema. PAST MEDICAL HISTORY Diagnosis Date ADD (attention deficit disorder) 08/28/2011 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) Diabetes (HCC) Hypertension 08/28/2011 Mixed hyperlipidemia Obesity S/P angioplasty with stent PAST SURGICAL HISTORY Procedure Laterality Date ARTHROSCOPY KNEE DIAGNOSTIC W/WO SYNOVIAL BX SPX Left 06/07/2014 meniscus OSTECTOMY CALCANEUS SPUR W/WO PLNTAR FASCIAL RLS Left PCI/STENT 04/27/2023 [facility] 04/27/23 PCI x3 (diagonal, pda and plv1). REPAIR NASAL SEPTUM PERFORATN devation REPAIR UMBILICAL HERNIA 01/08/2016 SOCIAL HISTORY Social History Tobacco Use Smoking status: Never Smokeless tobacco: Never Vaping Use Vaping Use: Never used Substance Use Topics Alcohol use: No Drug use: No FAMILY HISTORY Problem Relation Age of Onset Diabetes Mother Lung Cancer Mother Amblyopia Father other (gastric CA) Father Diabetes Brother Cataract Brother Coronary Artery Disease Brother Large AMI at age 39 ALLERGIES: ALLERGIES Allergen Reactions Amlodipine Other: See Comments Facial numbness MEDICATIONS: pioglitazone (ACTOS) 30 mg tablet Take 1 tablet by mouth once daily. TRUE METRIX GLUCOSE METER as directed. famotidine (PEPCID) 20 mg tablet Take 1 tablet by mouth once daily. dulaglutide (TRULICITY) 0.75 mg/0.5 mL pen injector Inject 0.75 mg subcutaneously one time a week. Inject dose once per week. Discard Pen After metoprolol succinate ER (TOPROL XL) 25 mg 24 hr tablet Take 1 tablet by mouth daily at bedtime. atorvastatin (LIPITOR) 80 mg tablet Take 1 tablet by mouth daily at bedtime. clopidogrel (PLAVIX) 75 mg tablet Take 1 tablet by mouth once daily. blood sugar diagnostic (BLOOD GLUCOSE TEST) test strip Test blood sugar(s) 1 times daily. Dx: Type 2 DM - Uncontrolled E11.65 Insulin: No Lancets lancets Test blood sugar(s) 1 times daily. Dx: Type 2 DM - Uncontrolled E11.65 Insulin: No glimepiride (AMARYL) 2 mg tablet Take 1 tablet by mouth daily with breakfast. aspirin 81 mg chewable tablet Take 1 tablet by mouth once daily. REVIEW OF SYSTEMS: GENERAL: Negative for: Weight loss or gain, Fever or Chills NECK: Negative for: Swelling, Pain, Stiffness RESPIRATORY: Negative for: Cough, Blood in Sputum GASTROINTESTINAL: Negative for: Trouble swallowing, Heartburn, Change in bowel habits, Blood in stool, Dark black stools MUSCULOSKELETAL: Negative for: Severe Muscle or joint pain, Stiffness , Joint swelling NEUROLOGIC/PSYCHIATRIC: Negative for: Paralysis, Numbness, Tingling, Tremor SKIN: Negative for: Rashes, Itching HEMATOLOGICAL/LYMPHATIC: Negative for: Easy bruising , Easy bleeding ENDOCRINE: Negative for: Heat or cold intolerance, Excessive sweating, Frequent urination All other review of systems, per history of present illness. PHYSICAL EXAMINATION: BP 120/80 Pulse 82 Ht 182.9 cm (6') Wt 120.2 kg (264 lb 15.9 oz) SpO2 98% BMI 35.94 kg/m Last 2 Encounter Wt Readings: Date: Wt: 08/12/2023 120.2 kg (264 lb 15.9 oz) 07/13/2023 118.8 kg (262 lb) General: Well appearing, in no acute distress. Skin: No clubbing, no cyanosis. Eyes: Extra ocular movements intact Oropharynx: No gross abnormalities Neck: No jugular venous distention, no carotid bruits, carotids have a normal upstroke, no palpable thyromegaly. Lungs: Clear to auscultation bilaterally, no wheezing or rhonchi. Heart: Regular rhythm, PMI not displaced, S1, S2, no S3, no S4, no murmur. Abdomen: Soft, nontender, bowel sounds normal, no palpable organomegaly, no bruits. Extremities: No peripheral edema . +2 distal pulses bilaterally. Neuro: Oriented to person, place and time, alert, cooperative. CARDIOVASCULAR MEDICINE TESTING: I have personally reviewed No Cardiovascular testing perfomed today. Jovanna Dunlap DO, [facility] Staff Cost Control Specialist Jovanna and Sophie Villa Dept. of Cardiovascular Medicine Heart, V[facility], [facility] This document was generated using the assistance of voice recognition software. If there are any errors of spelling, grammar, syntax or meaning, please feel free to contact me directly at anytime. documented in this encounter [facility] 07-30-2023 Miscellaneous Notes Pt returned call and notified of results, Dr. Gates's information and instructions. Notified of prescription being sent to pharmacy. Message left for return call. Steffi Henriquez Cholesterol is good. Sugars are still up. I would increase the trulicity but they are having supply problems of the 1.5 mg dose right now. Increase actos to 30 mg a day. Call sugars in two weeks. documented in this encounter [facility] 07-29-2023 Miscellaneous Notes Sees cardio 08/12/23 no upcoming visit with PCP scheduled. documented in this encounter [facility] 05-17-2023 Miscellaneous Notes Prior auth started on Ozempic 2mg/3ml through cover my meds. Jessica Bradley Ma documented in this encounter [facility] 05-12-2023 History of Presen t illness Narrative TRANSITION CARE MANAGEMENT (TCM) FOLLOW-UP NOTE Provider Action/FYI PCP TCM follow up: completed 05/10/2023 Encounter reviewed No need for TCM outreach Will continue with TCM monitoring for 30 days Summary: Pt discharged from [facility] on 04/29/2023. 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 [facility] Mariah Torres Department of Cardiovascular Medicine [facility] OUTPATIENT VISIT DATE May 11, 2023 OUTPATIENT VISIT TYPE Established Patient PRIMARY CARE PHYSICIAN: Wes Gates [address] [place] [address] REFERRING PHYSICIAN: SELF CHIEF COMPLAINT: Office Follow-Up Visit HISTORY OF PRESENT ILLNESS: Mr. Tamayo is a 53 year old male who presents today for follow up doing well no angina. He denies chest pain, shortness of breath, orthopnea, cough, edema, palpitations, PND, lightheadedness or syncope. PROBLEM LIST: Specialty Problems Cardiology Problems Essential hypertension 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) Mixed hyperlipidemia S/P angioplasty with stent RISK FACTORS FOR CORONARY ARTERY DISEASE: PAST MEDICAL HISTORY Diagnosis Date ADD (attention deficit disorder) 08/28/2011 Diabetes (HCC) Hypertension 08/28/2011 Obesity PAST SURGICAL HISTORY Procedure Laterality Date ARTHROSCOPY KNEE DIAGNOSTIC W/WO SYNOVIAL BX SPX Left 2014 meniscus OSTECTOMY CALCANEUS SPUR W/WO PLNTAR FASCIAL RLS Left REPAIR NASAL SEPTUM PERFORATN devation REPAIR UMBILICAL HERNIA 01/08/16 SOCIAL HISTORY Social History Tobacco Use Smoking status: Never Smokeless tobacco: Never Vaping Use Vaping Use: Never used Substance Use Topics Alcohol use: No Drug use: No FAMILY HISTORY Problem Relation Age of Onset Diabetes Mother Lung Cancer Mother Amblyopia Father other (gastric CA) Father Diabetes Brother Cataract Brother Coronary Artery Disease Brother Large AMI at age 39 ALLERGIES: ALLERGIES Allergen Reactions Amlodipine Other: See Comments Facial numbness MEDICATIONS: famotidine (PEPCID) 20 mg tablet Take 1 tablet by mouth once daily. blood sugar diagnostic (BLOOD GLUCOSE TEST) test strip Test blood sugar(s) 1 times daily. Dx: Type 2 DM - Uncontrolled E11.65 Insulin: No Lancets lancets Test blood sugar(s) 1 times daily. Dx: Type 2 DM - Uncontrolled E11.65 Insulin: No aspirin 81 mg chewable tablet Take 1 tablet by mouth once daily. isosorbide mononitrate ER (IMDUR) 30 mg 24 hr tablet Take 1 tablet by mouth once daily. glimepiride (AMARYL) 2 mg tablet Take 1 tablet by mouth daily with breakfast. pioglitazone (ACTOS) 15 mg tablet Take 1 tablet by mouth once daily. metoprolol succinate ER (TOPROL XL) 25 mg 24 hr tablet Take 1 tablet by mouth daily at bedtime. atorvastatin (LIPITOR) 80 mg tablet Take 1 tablet by mouth daily at bedtime. clopidogrel (PLAVIX) 75 mg tablet Take 1 tablet by mouth once daily. semaglutide (OZEMPIC) 0.25 mg or 0.5 mg (2 mg/3 mL) pen Inject 0.25 mg subcutaneously one time a week. REVIEW OF SYSTEMS: GENERAL: Negative for: Weight loss or gain, HEENT: Negative for: Headache, Impaired Vision, NECK: Negative for: Swelling, Pain, GASTROINTESTINAL: Negative for: Trouble swallowing, Heartburn, SKIN: Negative for: Rashes, Itching HEMATOLOGICAL/LYMPHATIC: Negative for: bleeding I personally interviewed, confirmed and edited the above information if obtained by others. PHYSICAL EXAMINATION: Blood Pressure 134/74 Pulse 71 Height 182.9 cm (6') Weight 114.3 kg (252 lb) Body Mass Index 34.18 kg/m General: Well appearing, in no acute distress. Skin: No clubbing, no cyanosis. Eyes: Extra ocular movements intact Neck: No jugular venous distention, no carotid bruits, carotids have a normal upstroke, no palpable thyromegaly. Lungs: Clear to auscultation bilaterally, no wheezing or rhonchi. Heart: Regular rhythm, PMI not displaced, S1, S2 normal, no S3, no S4, no heaves, no rub and no murmur. Extremities: No peripheral edema . Grade 2/4 distal pulses bilaterally. Neuro: Oriented to person, place and time, alert. CARDIOVASCULAR MEDICINE TESTING: Electrocardiogram: normal EKG I have personally reviewed the tests above. IMPRESSION: Mr. Tamayo is a 53 year old male stable . (I25.110) 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) (primary encounter diagnosis) (I10) Essential hypertension (E66.9) Obesity, Class I, BMI 30-34.9 (Z95.820) S/P angioplasty with stent (E11.9) Type 2 diabetes mellitus without complication, without long-term current use of insulin (HCC) Had stent to diagonal, pda and plv1. Doing well Patient of Dr Dunlap in [place]. He will follow up with him I have reviewed the medications, adjusted it and renew it for another year. During this visit PLAN AND RECOMMENDATIONS: Lipid is managed and blood testing is done by pcp Continue present treatment CONTACT INFORMATION: MD Jovanna Adams and Sophie Torres Department of Cardiovascular Medicine [facility] [address] [place] [address] [address] [place] [address] documented in this encounter [facility] 05-10-2023 History of Presen t illness Narrative Patient presents with: Transition Of Care HPI: Patient presents today for office visit for TCM Discharge 04/29 A1c is down to 7.9. He is now has medicaid coverage. Cannot tolerate metformin. Discussed trying ozempic or trulicity. Needs new meter. Overall is feeling much better. No chest pain or shortness of breath. No edema. No dizziness. His sites for ptca and cath are good. Sees cardiology in am. Is on a high dosed statin now instead of 20 mg now. Remains on asa and plavix. See discharge summary: CONSULTING TEAMS DURING HOSPITALIZATION: cardiology Treatment Team: Attending Provider: Krish Urias MD Primary Service: 4, [facility] REASON FOR HOSPITALIZATION: chest pain, intermittent, with CAD on LHC at [facility] DIAGNOSIS: Principal Problem: 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) (POA: Yes) Active Problems: ADD (attention deficit disorder) (POA: Yes) Essential hypertension (POA: Yes) Type 2 diabetes mellitus without complication, without long-term current use of insulin (HCC) (POA: Yes) Obesity, Class II, BMI 35-39.9 (POA: Yes) Mixed hyperlipidemia (POA: Yes) Resolved Problems: * No resolved hospital problems. * OPERATIONS DURING HOSPITALIZATION: None PROCEDURES DURING HOSPITALIZATION: stent of pda, plv1, om1, and diagonal 1 HOSPITAL COURSE: This is a 53 year old male with past medical history of adult ADD, hypertension, hyperlipidemia, obesity (BMI 35), diabetes mellitus type 2, poorly controlled. who presented to [facility] for CP. Troponins were negative. EKG nonischemic. He had a nuclear stress test on 04/26/2023 showing mild ischemia in the RCA territory and otherwise a low risk scan. Patient had echo today showing EF 58%, mild MR. He had left heart cath today by Dr. Dunlap and was found to have 99% circumflex distal stenosis and a 95% distal stenosis of the RCA. Recommendation was to transfer patient to a facility capable of placing stents. Pt. Was admitted to [facility], had a LHC on 04/28/[address] Pollock , with Successful stent of pda, plv1, om1, and diagonal 1 - now on aspirin 81 mg p.o. daily, atorvastatin 80 , metoprolol 12.5 mg bid, Imdur 30 mg. And plavix . Pt. Today is feeling good , no CP no SOB. BG still uncontrolled ,pt. To discuss further management with his PCP. Follow up with Dr. Pollock in 1 to [address] Dunlap in 3 to 4 weeks MEDICATIONS: Current Outpatient Medications Medication Sig metoprolol succinate ER (TOPROL XL) 25 mg 24 hr tablet Take 1 tablet by mouth daily at bedtime. atorvastatin (LIPITOR) 80 mg tablet Take 1 tablet by mouth daily at bedtime. aspirin 81 mg chewable tablet Take 1 tablet by mouth once daily. clopidogrel (PLAVIX) 75 mg tablet Take 1 tablet by mouth once daily. famotidine (PEPCID) 20 mg tablet Take 1 tablet by mouth two times a day. (Patient taking differently: Take 20 mg by mouth once daily.) isosorbide mononitrate ER (IMDUR) 30 mg 24 hr tablet Take 1 tablet by mouth once daily. glimepiride (AMARYL) 2 mg tablet Take 1 tablet by mouth daily with breakfast. pioglitazone (ACTOS) 15 mg tablet Take 1 tablet by mouth once daily. No current facility-administered medications for this visit. ALLERGIES: ALLERGIES Allergen Reactions Amlodipine Other: See Comments Facial numbness PAST MEDICAL HISTORY Diagnosis Date ADD (attention deficit disorder) 08/28/2011 Diabetes (HCC) Hypertension 08/28/2011 Obesity PAST SURGICAL HISTORY Procedure Laterality Date ARTHROSCOPY KNEE DIAGNOSTIC W/WO SYNOVIAL BX SPX Left 2014 meniscus OSTECTOMY CALCANEUS SPUR W/WO PLNTAR FASCIAL RLS Left REPAIR NASAL SEPTUM PERFORATN devation REPAIR UMBILICAL HERNIA 01/08/16 FAMILY HISTORY Problem Relation Age of Onset Diabetes Mother Lung Cancer Mother Amblyopia Father other (gastric CA) Father Diabetes Brother Cataract Brother Coronary Artery Disease Brother Large AMI at age 39 Social History Tobacco Use Smoking status: Never Smokeless tobacco: Never Vaping Use Vaping Use: Never used Substance Use Topics Alcohol use: No Drug use: No Reviewed current medications, allergies, past medical history, surgical history, family history and social history today. REVIEW OF SYSTEMS All other reviewed and negative other than HPI. HEALTH MAINTENANCE: Reviewed health maintenance issues today and recommended the following in detail. Urine Albumin:Creatinine Ratio due on 03/17/2023 VITALS: BP 120/70 Pulse 82 Ht 180.3 cm (5' 11) Wt 116.1 kg (256 lb) SpO2 97% BMI 35.70 kg/m Last 4 Encounter Wt Readings: Date: Wt: 04/27/2023 112.4 kg (247 lb 12.8 oz) 04/23/2023 114.3 kg (252 lb) 04/23/2023 114.3 kg (252 lb) 01/21/2023 113.4 kg (250 lb) PHYSICAL EXAMINATION: General appearance: Well appearing, alert, in no acute distress, well-hydrated, well nourished. Skin: Skin color, texture, turgor normal, no suspicious rashes or lesions Head: Normocephalic, no masses, lesions, tenderness or abnormalities Lungs: Lungs clear to auscultation. No wheezing, rhonchi, rales Heart: RRR without murmur, gallop, or rubs. No ectopy Abdomen: Normal abdominal exam, Abdomen soft, non-tender. Bowel sounds normal. No masses, organomegaly Extremities: No deformities, edema, skin discoloration, clubbing or cyanosis. Good capillary refill. Musculoskeletal: No joint swelling, deformity, or tenderness Peripheral pulses: Normal Neuro: Negative. ASSESSMENT/PLAN: 1. 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) - ICD9: 414.01, 411.1, ICD10: I25.110 (primary diagnosis) - doing well. Keep follow up with cardiology. - CBC + DIFF - BASIC METABOLIC PNL 2. Essential hypertension - ICD9: 401.9, ICD10: I10 - Controlled 3. Mixed hyperlipidemia - ICD9: 272.2, ICD10: E78.2 - check labs before next ov. - HGB A1C - HEPATIC FUNCTION PNL 4. Type 2 diabetes mellitus without complication, without long-term current use of insulin (HCC) - ICD9: 250.00, ICD10: E11.9 - Discussed risks and benefits of new medication with the patient. Advised them to call if any side effects or questions. - call sugars in two weeks. - SEMAGLUTIDE 0.25 MG OR 0.5 MG (2 MG/3 ML) SUBCUTANEOUS PEN INJECTOR - HOME BLOOD GLUCOSE MONITOR - BLOOD GLUCOSE TEST STRIPS - LANCETS - ALBUMIN/CREAT RATIO RND UR - LIPID PANEL BASIC 5. S/P angioplasty with stent - ICD9: V45.89, ICD10: Z95.820 - as above. Wes Gates MD documented in this encounter [facility] 04-30-2023 History of Presen t illness Narrative TCM Home Visit Referral Source of Stratification: [facility] Admission Status: Discharged Readmission Risk Score: 9 ADEN Score: 2 Patient meets program referral criteria: No Patient does not qualify for High Risk TCM Home Visit program due to: Discharged home, does not meet program criteria TRANSITIONAL CARE MANAGEMENT (TCM) COMMUNITY MONITORING PROGRAM Provider Action/FYI: Cardiology 05/11/[address] Pollock in 1 to [address] Dunlap in 3 to 4 weeks PCP 05/10/2023 Full medication review completed Patient denies any chest pain or SOB Catheterization site without hematoma Advised to notify PCP for recurring, new/worsening symptoms. Verbalized understanding. START taking these medications aspirin 81 mg chewable tablet Take 1 tablet by mouth once daily. clopidogrel 75 mg tablet Commonly known as: PLAVIX Take 1 tablet by mouth once daily. famotidine 20 mg tablet Commonly known as: PEPCID Take 1 tablet by mouth two times a day. isosorbide mononitrate ER 30 mg 24 hr tablet Commonly known as: IMDUR Take 1 tablet by mouth once daily. metoprolol succinate ER 25 mg 24 hr tablet Commonly known as: TOPROL XL Take 1 tablet by mouth daily at bedtime. SUMMARY: Discharge Network Status: In-Network Discharge Pt discharged from [facility] on 04/29/2023. Admitted for: unstable angina Contact made with patient: Yes Hi my name is Kenzie Henriquez RN and I am calling from the [facility] on behalf of your PCP, Wes Gates MD I understand you were recently in the hospital so I am calling to check in with you to ensure you are feeling well now that you're home. May I ask you a few questions related to your hospital stay and well-being? Yes Contact with patient post discharge, spoke to patient. Patient identified by name and . Do you feel your health is BETTER, WORSE, or the SAME since leaving the hospital? Better ACTION TAKEN: Patient indicated symptoms are better or same, no action required. Continue outreach. MEDICATIONS: Many patients have questions or concerns about their medications once they are home. Do you have any questions about taking your medications or which medication you should be on? No Do you need any medication refills at this time, including any of the medications you might take only when needed? No ACTION TAKEN: No action required For RNs or Pharmacy completing outreach ONLY, was a medication review completed? Yes Medication Review Sivan Tamayo (MR# [id number]) Review Info User Date and Time KENZIE DUGAN, KAN [[id number]] 04/30/2023 12:23 PM Reviewed Medications As of 04/30/2023 at 12:23 PM metoprolol succinate ER (TOPROL XL) 25 mg 24 hr tablet Taking atorvastatin (LIPITOR) 80 mg tablet Taking aspirin 81 mg chewable tablet Taking clopidogrel (PLAVIX) 75 mg tablet Taking famotidine (PEPCID) 20 mg tablet Taking isosorbide mononitrate ER (IMDUR) 30 mg 24 hr tablet Taking glimepiride (AMARYL) 2 mg tablet Taking pioglitazone (ACTOS) 15 mg tablet Taking SOCIAL: We would like to make sure you have what you need so that your basics needs are met - including your personal safety, food, housing and medications. 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 No It can be normal to feel anxious or down during a time like this. Would you like to talk to a mental health professional about how you have been feeling? No ACTION TAKEN: No action taken DISCHARGE INTRUCTIONS: Your discharge instructions / After Visit Summary (AVS) are important in guiding you through the recovery process. Do you have any questions related to your discharge instructions? No Do you have all the necessary equipment and supplies at home? No ACTION TAKEN: No action required I would like to help you schedule a hospital follow-up virtual or telephone visit with your PCP. This is a great way for you to connect with your provider to ensure you have safely transitioned home. If you are agreeable, I will send your request to a building wrecker who will contact and assist you with that appointment. This will give you an opportunity to ask any questions or address any concerns you may have with your PCP. Inform the patient that if they have any questions or concerns prior to that appointment, to call their PCP's office right away. ACTION TAKEN: No action required, patient already has an appointment scheduled. Your doctor would like us to remind you of the recommendations regarding the coronavirus (Covid19) outbreak: Avoid public places as much as possible. Avoid close contact (within 6 feet) with others you don t live with, especially if they are sick. Stay home if you are sick. Wash your hands regularly for at least 20 seconds with soap and water. Wear a cloth mask in public places to help reduce community spread. Do not go to your Doctor s office unless instructed to do so. For any non-emergency symptoms, call your Doctor s office to get instructions on how to manage (we might recommend a telephone or virtual visit). For emergency symptoms, proceed to Emergency Department as usual but inform them of cough and fever symptoms SKYLER if present (or call on the way if possible). LOW Education Ordered -: No Kenzie Henriquez RN April 30, 2023 12:18 PM documented in this encounter [facility] 04-29-2023 Miscellaneous Notes Please arrange for follow up with Dr. Pollock in 1-2 weeks, he is s/p heart cath w/ stents. Thank you! documented in this encounter [facility] 04-28-2023 Note HNO ID: [id number] Author: Krish Urias MD Service: Hospital Medicine Author Type: Physician Type: Progress Notes Filed: 04/28/2023 8:28 PM Note Text: DEPARTMENT OF HOSPITAL MEDICINE PROGRESS NOTE SERVICE DATE: 04/28/2023 SERVICE TIME: 4:00 PM Hospital Medicine/Primary Attending: Krish Urias MD NIGHT AND WEEKEND COVERAGE: [facility] COVERAGE:TEAM 4: Days AND Nights please call Team 4 pager [phone] Subjective INTERVAL HPI: Pt. Feels good , no chest , no SOB No new complaint MEDICATIONS: Reviewed Objective PHYSICAL EXAM: BP 147/80 Pulse 71 Temp (Src) 97.7 (Oral) Resp 16 Wt 251 lb 11.2 oz (114.2kg) SpO2 96% O2 Therapy: Room Air Physical Exam Performed GENERAL: Alert, no distress, cooperative NECK: No jugulovenous distention, No carotid bruits, Carotid pulse normal contour, Supple LUNGS: Lungs clear to auscultation, Good diaphragmatic excursion CARDIAC: Normal S1 and S2; no rubs, murmurs, or gallops ABDOMEN: Abdomen soft, non-tender, BS normal, No masses or organomegaly EXTREMITIES: Extremities normal, no deformities, edema, clubbing or skin discoloration. Good capillary refill., No ulcers PULSES: 2+ radial, 2+ carotid Lines, Drains, and Airways Line Duration Peripheral 04/28/23 [facility] Short Left Forearm 22 Gauge <1 day DATA: Diagnostic tests reviewed for today's visit: Most recent labs and imaging results. Assessment/Plan Principal Problem: # Coronary artery disease, chicken ranch heart, chicken ranch arteries, with unstable angina - CC: CP - Left heart cath at [facility] showing significant coronary artery stenosis- - S/p LHC today by dr. Pollock , with Successful stent of pda, plv1, om1, and diagonal 1 - Continue aspirin 81 mg p.o. daily, atorvastatin 80 , metoprolol 12.5 mg bid, Imdur 30 mg. And plavix - may anticipate discharge tomorrow if stable # Essential hypertension Continue Imdur and metoprolol Of note, patient was given a dose of amlodipine at [facility] but had what they presumed was an allergic reaction. # Mixed hyperlipidemia Continue lipitor 80 mg daily # Diabetes mellitus type 2, without noted complications, not on long-term insulin - Continue Actos and ISS - Hemoglobin A1c was 9% in December. now 7.9 - Pt.to follow up as an out pt. . 5. Obesity class II-BMI 35.1 Encourage healthy lifestyle and dietary changes for weight loss. Patient to follow up with PCP outpatient. 6. Adult ADD -he has not taken his Adderall for the last month or so. Advised to avoid stimulant medications like Adderall in the future. Medication and Non-Pharmacologic VTE Prophylaxis/Anticoagulants Anticoagulant AND Antiplatelet Medications (From admission, onward) Start Dose Route Frequency Last Action Ordered Stop 04/29/23899 clopidogrel 75 mg tab(s) (PLAVIX) 75 mg ORAL DAILY Ordered 04/28/23 1528 -- 04/28/23899 aspirin 81 mg chewable tab(s) 81 mg ORAL DAILY Given, 04/28 92204/27/232000 -- 04/27/232014 activity - mobilize patient ([place], [place]) VTE Prophylaxis: VTE prophylaxis appropriate Disposition: Home Plan of care discussed with: Patient, Family/Significant Other: at bedside , and RN and manufacturing sr engineer dr. Pollock SIGNATURE: Krish Urias MD PATIENT NAME: Sivan Tamayo DATE: April 28, 2023 TIME: 4:00 PM etx [id number] [facility] 04-27-2023 Note HNO ID: [id number] Author: Susan Davidson RN Service: Nursing Author Type: Registered Nurse Type: Progress Notes Filed: 04/27/2023 5:43 PM Note Text: Called report to , transport ETA from [facility] is [address] [facility] 04-27-2023 Miscellaneous Notes Hospital transfer from [facility] to [facility]. Sivan Oconnor 53 yo male with hx of DM, HTN, dyslipidemia, obesity, tobacco abuse, with exertional chest pain. Abnormal stress and positive cath with needing revascularization of circumflex marginal branch and RCA. Accepted to [facility]. Colette Thacker MD April 27, 2023 5:14 PM documented in this encounter [facility] 04-27-2023 Note HNO ID: [id number] Author: Galileo Reaves MD Service: Hospital Medicine Author Type: Physician Type: Progress Notes Filed: 04/27/2023 2:43 PM Note Text: DEPARTMENT OF HOSPITAL MEDICINE PROGRESS NOTE SERVICE DATE: 04/27/2023 SERVICE TIME: 2:39 PM Hospital Medicine/Primary Attending: Galileo Reaves MD NIGHT AND WEEKEND COVERAGE: CABOOL COVERAGE: Days: [phone], please page attending physician. Nights: [phone], please page [place] [facility] Night coverage pager [phone]. Subjective INTERVAL HPI: - s/p LHC which showed 99% Lcx and 95% in RCA - awaiting bed at [facility] Current Facility-Administered Medications Medication Dose Route Frequency glimepiride 2 mg tab(s) (AMARYL) 2 mg ORAL DAILY WITH BREAKFAST pioglitazone 15 mg tab(s) (ACTOS) 15 mg ORAL DAILY atorvastatin 20 mg tab(s) (LIPITOR) 20 mg ORAL AT BEDTIME dextrose 40 % 15 g 15 g ORAL PRN Or glucagon 1 mg injection 1 mg INTRAMUSCULAR PRN Or dextrose 10% iv bolus 12.5 g INTRAVENOUS PRN NaCl 0.9% iv flush bag 20 mL INTRAVENOUS PRN insulin lispro injection (rapid acting) (ADMElog) SUBCUTANEOUS w MEALS AND HS melatonin 3 mg tab(s) 3 mg ORAL DAILY (8 PM) aspirin 81 mg chewable tab(s) 81 mg ORAL DAILY metoprolol tartrate (short acting) 12.5 mg tab(s) (LOPRESSOR) 12.5 mg ORAL q 12 H isosorbide mononitrate ER 30 mg tab(s) (IMDUR) 30 mg ORAL DAILY perflutren lipid microspheres 1.1 mg/mL 1.3 mL injection (DEFINITY) 1.3 mL INTRAVENOUS DIRECTED PRN famotidine 20 mg tab(s) (PEPCID) 20 mg ORAL BID Objective PHYSICAL EXAM: BP 145/71 Pulse 65 Temp (Src) 97.7 (Oral) Resp 20 Wt 252 lb (114.3kg) SpO2 96% O2 Therapy: Room Air Physical Exam Performed GENERAL: Alert, no distress, cooperative LUNGS: Lungs clear to auscultation, Good diaphragmatic excursion CARDIAC: Normal S1 and S2; no rubs, murmurs, or gallops ABDOMEN: Abdomen soft, non-tender, BS normal, No masses or organomegaly EXTREMITIES: Extremities normal, no deformities, edema, clubbing or skin discoloration. Good capillary refill., No ulcers NEURO: Gait normal. Reflexes normal and symmetric. Sensation grossly intact, Cranial nerves II-XII intact PULSES: 2+ radial, 2+ carotid Lines, Drains, and Airways Line Duration Peripheral 04/23/23 1213 [facility] Short Right Antecubital 18 Gauge 4 days Reviewed lines and needs to be continued: REASONS: Telemetry DATA: Diagnostic tests reviewed for today's visit: Most recent labs Most recent imaging Assessment/Plan Problem List Exertional chest pain (POA: Yes) Hypertension (POA: Yes) Type 2 diabetes mellitus without complication (HCC) (POA: Yes) Mild intermittent asthma without complication (POA: Yes) Obesity (BMI 30-39.9) (POA: Yes) Allergic reaction (POA: Status not on file) Obesity, Class II, BMI 35-39.9 (POA: Status not on file) HOSPITAL COURSE: Sivan Tamayo is a 53 year old male presented with past medical history of ADD (attention deficit disorder) (08/28/2011), Diabetes (HCC), Hypertension (08/28/2011), and Obesity, who presents to [place] ER after two episodes of exertional chest pain and improved with rest. Risk factors of family hx of early CAD of brother at age 39, obesity, diabetes, dyslipidemia, HTN, use of Adderall for ADD (not in the last month or so), tobacco abuse with infrequently cigar use. Negative Troponin and NSR on EKG. R/o ACS and potentailly stress test vs heart cath (inpatient vs outpatient). Exertional chest pain Frequent PVC -EKG with no acute changes -HST 8.10.10 -h/o type 2 DM, HTN, obesity, family history of early heart disease. - seen by cardiology, started on aspirin, statin, metoprolol, imdur . - possible allergic reaction after receiving norvasc. - norvasc discontinued -s/p stress test 04/26 which was abnormal. 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 Medication and Non-Pharmacologic VTE Prophylaxis/Anticoagulants Anticoagulant AND Antiplatelet Medications (From admission, onward) Start Dose Route Frequency Last Action Ordered Stop 04/24/23 0930 aspirin 81 mg chewable tab(s) 81 mg ORAL DAILY Given, 04/27 1229 04/24/23 0908 -- VTE Prophylaxis: VTE prophylaxis appropriate Disposition: To be determined Plan of care discussed with Patient and RN Plan communicated to: N/A SIGNATURE: Galileo Reaves MD PATIENT NAME: Sivan Tamayo DATE: April 27, 2023 TIME: 2:43 PM [facility] 04-26-2023 Note HNO ID: [id number] Author: Jovanna Dunlap DO Service: Cardiovascular Disease Author Type: Physician Type: Progress Notes Filed: 04/26/2023 4:33 PM Note Text: CARDIAC CATHETERIZATION RISK ASSESSMENT SERVICE DATE: April 26, 2023 SERVICE TIME: 4:33 PM Level 1 Cardiac Catheterization Lab Exclusion Check List Is the patient less than 22 years old? No Is there pulmonary edema due to ischemia? No Is there valvular or LV function limitations with severe (Class 4) symptoms? No Is there complex congenital heart disease? No Is there an acute coronary syndrome? No Is this a therapeutic procedure in adult congenital heart disease patient? No SIGNATURE: Jovanna Dunlap DO PATIENT NAME: Sivan Tamayo DATE: April 26, 2023 TIME: 4:33 PM PAGER/CONTACT #: [facility] 04-26-2023 Note HNO ID: [id number] Author: Galileo Reaves MD Service: Hospital Medicine Author Type: Physician Type: Progress Notes Filed: 04/26/2023 4:08 PM Note Text: DEPARTMENT OF HOSPITAL MEDICINE PROGRESS NOTE SERVICE DATE: 04/26/2023 SERVICE TIME: 4:06 PM Hospital Medicine/Primary Attending: Galileo Reaves MD NIGHT AND WEEKEND COVERAGE: CABOOL COVERAGE: Days: [phone], please page attending physician. Nights: [phone], please page [place] [facility] Night coverage pager [phone]. Subjective INTERVAL HPI: - scheduled for stress test today - no overnight events Current Facility-Administered Medications Medication Dose Route Frequency glimepiride 2 mg tab(s) (AMARYL) 2 mg ORAL DAILY WITH BREAKFAST pioglitazone 15 mg tab(s) (ACTOS) 15 mg ORAL DAILY atorvastatin 20 mg tab(s) (LIPITOR) 20 mg ORAL AT BEDTIME dextrose 40 % 15 g 15 g ORAL PRN Or glucagon 1 mg injection 1 mg INTRAMUSCULAR PRN Or dextrose 10% iv bolus 12.5 g INTRAVENOUS PRN NaCl 0.9% iv flush bag 20 mL INTRAVENOUS PRN insulin lispro injection (rapid acting) (ADMElog) SUBCUTANEOUS w MEALS AND HS melatonin 3 mg tab(s) 3 mg ORAL DAILY (8 PM) aspirin 81 mg chewable tab(s) 81 mg ORAL DAILY metoprolol tartrate (short acting) 12.5 mg tab(s) (LOPRESSOR) 12.5 mg ORAL q 12 H isosorbide mononitrate ER 30 mg tab(s) (IMDUR) 30 mg ORAL DAILY famotidine 20 mg injection (PEPCID) 20 mg INTRAVENOUS BID perflutren lipid microspheres 1.1 mg/mL 1.3 mL injection (DEFINITY) 1.3 mL INTRAVENOUS DIRECTED PRN Objective PHYSICAL EXAM: BP 127/83 Pulse 76 Temp (Src) 97.7 (Oral) Resp 17 Wt 252 lb (114.3kg) SpO2 97% O2 Therapy: Room Air Physical Exam Performed GENERAL: Alert, no distress, cooperative LUNGS: Lungs clear to auscultation, Good diaphragmatic excursion CARDIAC: Normal S1 and S2; no rubs, murmurs, or gallops ABDOMEN: Abdomen soft, non-tender, BS normal, No masses or organomegaly EXTREMITIES: Extremities normal, no deformities, edema, clubbing or skin discoloration. Good capillary refill., No ulcers NEURO: Gait normal. Reflexes normal and symmetric. Sensation grossly intact, Cranial nerves II-XII intact PULSES: 2+ radial, 2+ carotid Lines, Drains, and Airways Line Duration Peripheral 04/23/23 1213 [facility] Short Right Antecubital 18 Gauge 3 days Reviewed lines and needs to be continued: REASONS: Telemetry DATA: Diagnostic tests reviewed for today's visit: Most recent labs Most recent imaging Assessment/Plan Problem List Exertional chest pain (POA: Yes) Hypertension (POA: Yes) Type 2 diabetes mellitus without complication (HCC) (POA: Yes) Mild intermittent asthma without complication (POA: Yes) Obesity (BMI 30-39.9) (POA: Yes) Allergic reaction (POA: Status not on file) Obesity, Class II, BMI 35-39.9 (POA: Status not on file) HOSPITAL COURSE: Sivan Tamayo is a 53 year old male presented with past medical history of ADD (attention deficit disorder) (08/28/2011), Diabetes (HCC), Hypertension (08/28/2011), and Obesity, who presents to [place] ER after two episodes of exertional chest pain and improved with rest. Risk factors of family hx of early CAD of brother at age 39, obesity, diabetes, dyslipidemia, HTN, use of Adderall for ADD (not in the last month or so), tobacco abuse with infrequently cigar use. Negative Troponin and NSR on EKG. R/o ACS and potentailly stress test vs heart cath (inpatient vs outpatient). Exertional chest pain Frequent PVC -EKG with no acute changes -HST 8.10.10 -h/o type 2 DM, HTN, obesity, family history of early heart disease. - seen by cardiology, started on aspirin, statin, metoprolol, imdur . - possible allergic reaction after receiving norvasc. - norvasc discontinued -s/p stress test, cardiology to discuss possible heart cath with the patient. 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 Medication and Non-Pharmacologic VTE Prophylaxis/Anticoagulants Anticoagulant AND Antiplatelet Medications (From admission, onward) Start Dose Route Frequency Last Action Ordered Stop 04/24/23929 aspirin 81 mg chewable tab(s) 81 mg ORAL DAILY Given, 04/26 91104/24/23907 -- VTE Prophylaxis: VTE prophylaxis appropriate Disposition: To be determined Plan of care discussed with Patient and RN Plan communicated to: N/A SIGNATURE: Galileo Reaves MD PATIENT NAME: Sivan Tamayo DATE: April 26, 2023 TIME: 2:01 PM [facility] 04-25-2023 Note HNO ID: [id number] Author: Galileo Reaves MD Service: Hospital Medicine Author Type: Physician Type: Progress Notes Filed: 04/25/2023 2:01 PM Note Text: DEPARTMENT OF HOSPITAL MEDICINE PROGRESS NOTE SERVICE DATE: 04/25/2023 SERVICE TIME: 1:50 PM Hospital Medicine/Primary Attending: Galileo Reaves MD NIGHT AND WEEKEND COVERAGE: [employer]OOL COVERAGE: Days: [phone], please page attending physician. Nights: [phone], please page [place] [facility] Night coverage pager [phone]. Subjective INTERVAL HPI: - had an episode of tingling around his lips, light headedness and dizziness after receiving norvasc - cardiology wants to do stress test in am Current Facility-Administered Medications Medication Dose Route Frequency glimepiride 2 mg tab(s) (AMARYL) 2 mg ORAL DAILY WITH BREAKFAST pioglitazone 15 mg tab(s) (ACTOS) 15 mg ORAL DAILY atorvastatin 20 mg tab(s) (LIPITOR) 20 mg ORAL AT BEDTIME dextrose 40 % 15 g 15 g ORAL PRN Or glucagon 1 mg injection 1 mg INTRAMUSCULAR PRN Or dextrose 10% iv bolus 12.5 g INTRAVENOUS PRN NaCl 0.9% iv flush bag 20 mL INTRAVENOUS PRN insulin lispro injection (rapid acting) (ADMElog) SUBCUTANEOUS w MEALS AND HS melatonin 3 mg tab(s) 3 mg ORAL DAILY (8 PM) aspirin 81 mg chewable tab(s) 81 mg ORAL DAILY metoprolol tartrate (short acting) 12.5 mg tab(s) (LOPRESSOR) 12.5 mg ORAL q 12 H isosorbide mononitrate ER 30 mg tab(s) (IMDUR) 30 mg ORAL DAILY famotidine 20 mg injection (PEPCID) 20 mg INTRAVENOUS BID sodium chloride 0.9 % (flush) 2-10 mL (BD POSIFLUSH) 2-10 mL INTRAVENOUS DIRECTED PRN And perflutren lipid microspheres 1.1 mg/mL 1.3 mL injection (DEFINITY) 1.3 mL INTRAVENOUS DIRECTED PRN Objective PHYSICAL EXAM: BP 134/82 Pulse 92 Temp (Src) 98.2 (Oral) Resp 20 Wt 252 lb (114.3kg) SpO2 94% O2 Therapy: Room Air Physical Exam Performed GENERAL: Alert, no distress, cooperative LUNGS: Lungs clear to auscultation, Good diaphragmatic excursion CARDIAC: Normal S1 and S2; no rubs, murmurs, or gallops ABDOMEN: Abdomen soft, non-tender, BS normal, No masses or organomegaly EXTREMITIES: Extremities normal, no deformities, edema, clubbing or skin discoloration. Good capillary refill., No ulcers NEURO: Gait normal. Reflexes normal and symmetric. Sensation grossly intact, Cranial nerves II-XII intact PULSES: 2+ radial, 2+ carotid Lines, Drains, and Airways Line Duration Peripheral 04/23/23 1213 [facility] Short Right Antecubital 18 Gauge 2 days Reviewed lines and needs to be continued: REASONS: Telemetry DATA: Diagnostic tests reviewed for today's visit: Most recent labs Most recent imaging Assessment/Plan Problem List Exertional chest pain (POA: Yes) Hypertension (POA: Yes) Type 2 diabetes mellitus without complication (HCC) (POA: Yes) Mild intermittent asthma without complication (POA: Yes) Obesity (BMI 30-39.9) (POA: Yes) Allergic reaction (POA: Status not on file) HOSPITAL COURSE: Sivan Tamayo is a 53 year old male presented with past medical history of ADD (attention deficit disorder) (08/28/2011), Diabetes (HCC), Hypertension (08/28/2011), and Obesity, who presents to [place] ER after two episodes of exertional chest pain and improved with rest. Risk factors of family hx of early CAD of brother at age 39, obesity, diabetes, dyslipidemia, HTN, use of Adderall for ADD (not in the last month or so), tobacco abuse with infrequently cigar use. Negative Troponin and NSR on EKG. R/o ACS and potentailly stress test vs heart cath (inpatient vs outpatient). Exertional chest pain Frequent PVC -EKG with no acute changes -HST 8.10.10 -h/o type 2 DM, HTN, obesity, family history of early heart disease. - seen by cardiology, started on aspirin, statin, metoprolol, imdur . - possible allergic reaction after receiving norvasc. 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 Medication and Non-Pharmacologic VTE Prophylaxis/Anticoagulants Anticoagulant AND Antiplatelet Medications (From admission, onward) Start Dose Route Frequency Last Action Ordered Stop 04/24/23929 aspirin 81 mg chewable tab(s) 81 mg ORAL DAILY Given, 04/25 95904/24/23 0908 -- VTE Prophylaxis: VTE prophylaxis appropriate Disposition: To be determined Plan of care discussed with Patient and RN Plan communicated to: N/A SIGNATURE: Galileo Reaves MD PATIENT NAME: Sivan Tamayo DATE: April 25, 2023 TIME: 2:01 PM [facility] 04-24-2023 Note HNO ID: [id number] Author: Galileo Reaves MD Service: Hospital Medicine Author Type: Physician Type: Progress Notes Filed: 04/24/2023 1:30 PM Note Text: DEPARTMENT OF HOSPITAL MEDICINE PROGRESS NOTE SERVICE DATE: 04/24/2023 SERVICE TIME: 1:18 PM Hospital Medicine/Primary Attending: Galileo Reaves MD NIGHT AND WEEKEND COVERAGE: CABOOL COVERAGE: Days: [phone], please page attending physician. Nights: [phone], please page [place] [facility] Night coverage pager [phone]. Subjective INTERVAL HPI: -denies any chest pain - having significant ectopy on tele - receiving 2 grams magnesium per cardiology. Current Facility-Administered Medications Medication Dose Route Frequency glimepiride 2 mg tab(s) (AMARYL) 2 mg ORAL DAILY WITH BREAKFAST pioglitazone 15 mg tab(s) (ACTOS) 15 mg ORAL DAILY atorvastatin 20 mg tab(s) (LIPITOR) 20 mg ORAL AT BEDTIME dextrose 40 % 15 g 15 g ORAL PRN Or glucagon 1 mg injection 1 mg INTRAMUSCULAR PRN Or dextrose 10% iv bolus 12.5 g INTRAVENOUS PRN NaCl 0.9% iv flush bag 20 mL INTRAVENOUS PRN insulin lispro injection (rapid acting) (ADMElog) SUBCUTANEOUS w MEALS AND HS melatonin 3 mg tab(s) 3 mg ORAL DAILY (8 PM) aspirin 81 mg chewable tab(s) 81 mg ORAL DAILY metoprolol tartrate (short acting) 12.5 mg tab(s) (LOPRESSOR) 12.5 mg ORAL q 12 H isosorbide mononitrate ER 30 mg tab(s) (IMDUR) 30 mg ORAL DAILY amLODIPine 2.5 mg tab(s) (NORVASC) 2.5 mg ORAL DAILY Objective PHYSICAL EXAM: BP 136/84 Pulse 71 Temp (Src) 98.1 (Oral) Resp 18 Wt 252 lb (114.3kg) SpO2 96% O2 Therapy: Room Air Physical Exam Performed GENERAL: Alert, no distress, cooperative LUNGS: Lungs clear to auscultation, Good diaphragmatic excursion CARDIAC: Normal S1 and S2; no rubs, murmurs, or gallops ABDOMEN: Abdomen soft, non-tender, BS normal, No masses or organomegaly EXTREMITIES: Extremities normal, no deformities, edema, clubbing or skin discoloration. Good capillary refill., No ulcers NEURO: Gait normal. Reflexes normal and symmetric. Sensation grossly intact, Cranial nerves II-XII intact PULSES: 2+ radial, 2+ carotid Lines, Drains, and Airways Line Duration Peripheral 04/23/23 1213 [facility] Short Right Antecubital 18 Gauge 1 day Reviewed lines and needs to be continued: REASONS: Telemetry DATA: Diagnostic tests reviewed for today's visit: Most recent labs Most recent imaging Assessment/Plan Problem List Exertional chest pain (POA: Yes) Hypertension (POA: Yes) Type 2 diabetes mellitus without complication (HCC) (POA: Yes) Mild intermittent asthma without complication (POA: Yes) Obesity (BMI 30-39.9) (POA: Yes) HOSPITAL COURSE: Sivan Tamayo is a 53 year old male presented with past medical history of ADD (attention deficit disorder) (08/28/2011), Diabetes (HCC), Hypertension (08/28/2011), and Obesity, who presents to [place] ER after two episodes of exertional chest pain and improved with rest. Risk factors of family hx of early CAD of brother at age 39, obesity, diabetes, dyslipidemia, HTN, use of Adderall for ADD (not in the last month or so), tobacco abuse with infrequently cigar use. Negative Troponin and NSR on EKG. R/o ACS and potentailly stress test vs heart cath (inpatient vs outpatient). Exertional chest pain Frequent PVC -EKG with no acute changes -HST 8.10.10 -h/o type 2 DM, HTN, obesity, family history of early heart disease. - seen by cardiology, started on aspirin, statin, metoprolol, imdur and norvasc - monitor overnight - will need outpatient stress test. 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 Medication and Non-Pharmacologic VTE Prophylaxis/Anticoagulants Anticoagulant AND Antiplatelet Medications (From admission, onward) Start Dose Route Frequency Last Action Ordered Stop 04/24/23 0930 aspirin 81 mg chewable tab(s) 81 mg ORAL DAILY Given, 04/24 0945 04/24/23 0908 -- VTE Prophylaxis: VTE prophylaxis appropriate Disposition: To be determined Plan of care discussed with Patient and RN Plan communicated to: N/A SIGNATURE: Galileo Reaves MD PATIENT NAME: Sivan Tamayo DATE: April 24, 2023 TIME: 1:18 PM [facility] 04-23-2023 History of Past i llness Narrative Problem Noted Date Diagnosed Date Resolved Date Exertional chest pain 04/23/20232022 documented as of this encounter (statuses as of 05/10/2023) [facility]11-17-2023 History of Past illness Narrative* Problem Noted Date Diagnosed Date Resolved Date Exertional chest pain 04/23/20232022 documented as of this encounter (statuses as of 05/11/2023) [facility]-17-2023 History of Past illness Narrative* Problem Noted Date Diagnosed Date Resolved Date Exertional chest pain 04/23/2023 12/04/ 2023 documented as of this encounter (statuses as of 05/12/2023) [place] [address]-17-2023 History of Past illness Narrative* Problem Noted Date Diagnosed Date Resolved Date Exertional chest pain 04/23/20232022 documented as of this encounter (statuses as of 05/17/2023) [place] [address]-17-2023 History of Past illness Narrative* Problem Noted Date Diagnosed Date Resolved Date Exertional chest pain 04/23/20232022 documented as of this encounter (statuses as of 07/29/2023) [place] [address]-17-2023 History of Past illness Narrative* Problem Noted Date Diagnosed Date Resolved Date Exertional chest pain 04/23/20232022 documented as of this encounter (statuses as of 07/30/2023) [place] [address]-17-2023 History of Past illness Narrative* Problem Noted Date Diagnosed Date Resolved Date Exertional chest pain 04/23/20232022 documented as of this encounter (statuses as of 08/12/2023) [facility]11-17-2023 History of Past illness Narrative* Problem Noted Date Diagnosed Date Resolved Date Exertional chest pain 04/23/20232022 documented as of this encounter (statuses as of 09/08/2023) [facility]11-17-2023 History of Present illness Narrative* Wes Gates MD - 04/23/2023 10:24 AM EST Patient presents with: Diabetes HPI: Patient presents today for office visit for followup. Episode yesterday during pickle ball. Chest hurt. Other people here said went pale. Reports that heart was racing, grabbed at his chest. Today on his walk thought maybe it hurt but can' be sure that wasn't just because he wasn't thinking about it from yesterday. Not as severe today. No radiation. No shortness of breath. No dizziness. DM: Reports overall feeling well. Medication side effects: No. Home sugar check frequency/results:yes once daily Hypoglycemic spells: No. Watching diet: so so. Unexpected weight loss: No. Polyuria, polydipsia: No. Vision Changes: had exam a couple months ago and was ok. Foot lesions or numbness or pain: bilateral feet go numb when he lays down. Doesn't happen when sitting just when lying completely flat. MEDICATIONS: Current Outpatient Medications Medication Sig glimepiride (AMARYL) 2 mg tablet Take 1 tablet by mouth daily with breakfast. ASHWAGANDHA EXTRACT ORAL Take 500 mg by mouth daily at bedtime. Amphetamine-Dextroamphetamine (ADDERALL) 30 mg tablet Take 1 tablet by mouth twice daily for 30 days. Amphetamine-Dextroamphetamine (ADDERALL) 30 mg tablet Take 1 tablet by mouth twice daily for 30 days. Do not start before January 20, 2023. Amphetamine-Dextroamphetamine (ADDERALL) 30 mg tablet Take 1 tablet by mouth twice daily for 30 days. Do not start before February 19, 2023. pioglitazone (ACTOS) 15 mg tablet Take 1 tablet by mouth once daily. atorvastatin (LIPITOR) 20 mg tablet Take 1 tablet by mouth daily at bedtime. For cholesterol. No current facility-administered medications for this visit. ALLERGIES: ALLERGIES No Known Allergies PAST MEDICAL HISTORY Diagnosis Date ADD (attention deficit disorder) 08/28/2011 Diabetes (HCC) Hypertension 08/28/2011 PAST SURGICAL HISTORY Procedure Laterality Date ARTHROSCOPY KNEE DIAGNOSTIC W/WO SYNOVIAL BX SPX Left 2014 meniscus OSTECTOMY CALCANEUS SPUR W/WO PLNTAR FASCIAL RLS Left REPAIR NASAL SEPTUM PERFORATN devation REPAIR UMBILICAL HERNIA 01/08/16 FAMILY HISTORY Problem Relation Age of Onset Diabetes Mother Lung Cancer Mother Amblyopia Father other (gastric CA) Father Diabetes Brother Cataract Brother Social History Tobacco Use Smoking status: Never Smokeless tobacco: Never Vaping Use Vaping Use: Never used Substance Use Topics Alcohol use: No Drug use: No Reviewed current medications, allergies, past medical history, surgical history, family history andsocial history today. REVIEW OF SYSTEMS No pain since 6:30 All other reviewed and negative other than HPI. VITALS: BP 118/72 Pulse 72 Wt 114.3 kg (252 lb) SpO2 96% BMI 35.15 kg/m Last 4 Encounter Wt Readings: Date: Wt: 01/21/2023 113.4 kg (250 lb) 12/25/2022 111.7 kg (246 lb 3.2 oz) 12/21/2022 111.9 kg (246 lb 9.6 oz) 06/16/2022 113.4 kg (250 lb) PHYSICAL EXAMINATION: General appearance: Well appearing, alert, in no acute distress, well-hydrated, well nourished. Skin: Skin color, texture, turgor normal, no suspicious rashes or lesions Head: Normocephalic, no masses, lesions, tenderness or abnormalities Lungs: Lungs clear to auscultation. No wheezing, rhonchi, rales Heart: RRR without murmur, gallop, or rubs. No ectopy Abdomen: Normal abdominal exam, Abdomen soft, non-tender. Bowel sounds normal. No masses, organomegaly Extremities: No deformities, edema, skin discoloration, clubbing or cyanosis. Good capillary refill. ASSESSMENT/PLAN: 1. Chest pain, unspecified type - ICD9: 786.50, ICD10: R07.9 (primary diagnosis) - has had two episodes of chest pain with exertion in last 24 hours. To ER of choice. to transport. - ECG COMPLETE 2. Primary hypertension - ICD9: 401.9, ICD10: I10 - Controlled 3. Mild intermittent asthma without complication - ICD9: 493.90, ICD10: J45.20 - stable 4. Type 2 diabetes mellitus without complication, without long-term current use of insulin (HCC) - ICD9: 250.00, ICD10: E11.9 - will follow. Wes Gates documented in this encounterUc Health09-21-2023 NoteHNO ID: [id number] Author: Delma Cabrales RN Service: Nursing Author Type: Registered Nurse Type: Nursing Progress Note Filed: 03/02/2023 2:45 PM Note Text: Other: Patient states he is doing well after his procedure. No complaints verbalized.[facility]09-20-2023 Nurse Note* Candido Ann RN - 02/24/2023 12:56 PM EDTSummary: Pre-op Instruction Pt given arrival time. Pt's stated that they were unable to find the bowel prep. States that prep was started around noon. Pt instructed to continue clear liquid and finish prep prior to midnight. Pt's verbalizes understanding. documented in this encounterUc Health08-17-2023 Miscellaneous Notes* Telephone Encounter - Wes Gates MD - 01/21/2023 4:58 PM EDT Thank you! * Telephone Encounter - Acosta Rivera MSW - 01/21/2023 4:17 PM EDT Sw spoke with patient regarding Ozempic-Inder Nordisk. Patient requests that Sw mail application to his home. Patient notes that he will review application and work on completing his portion of application. Sw notes that she will mail forms beginning of next week as she will be out tomorrow. Patient notes that will be fine and he will keep an eye out for forms and let Sw know if he has anyquestions about completing them when he receives forms in the mail. documented in this encounterUc Health08-17-2023 History of Present illness Narrative* Wes Gates MD - 01/21/2023 1:35 PM EDT Patient presents with: Follow Up HPI: Patient presents today for office visit for follow up blood pressure. Restarted Amlodipine 2.5 mg at last OV. Only took medications for the first 3 days. States it made him severely dizzy to the point of being sick to his stomach. Refers to it feeling like motion sickness. Has not been monitoring his BP at home Denies chest pain and shortness of breath No headaches No dizziness except when he was taking the Amlodipine No palpitations No syncope No edema Discussed watching his salt, weight loss. Etc. Will try to watch how he does off the meds. Glimepiride increased to 2 mg Checking sugars intermittently - still 160 at lowest. . Cant tolerate metfomrin. Sugars are high Does not watch his diet He gets up late at night and snacks A!C-9.0. Discussed trying something like onglyza or trulicity. Would need assistance for payment. Will checkwith social service. MEDICATIONS: Current Outpatient Medications Medication Sig glimepiride (AMARYL) 2 mg tablet Take 1 tablet by mouth daily with breakfast. ASHWAGANDHA EXTRACT ORAL Take 500 mg by mouth daily at bedtime. amLODIPine (NORVASC) 2.5 mg tablet Take 1 tablet by mouth once daily. Amphetamine-Dextroamphetamine (ADDERALL) 30 mg tablet Take 1 tablet by mouth twice daily for 30 days. Do not start before January 20, 2023. [START ON 02/19/2023] Amphetamine-Dextroamphetamine (ADDERALL) 30 mg tablet Take 1 tablet by mouth twice daily for 30 days. Do not start before February 19, 2023. pioglitazone (ACTOS) 15 mg tablet Take 1 tablet by mouth once daily. atorvastatin (LIPITOR) 20 mg tablet Take 1 tablet by mouth daily at bedtime. For cholesterol. Amphetamine-Dextroamphetamine (ADDERALL) 30 mg tablet Take 1 tablet by mouth twice daily for 30 days. No current facility-administered medications for this visit. ALLERGIES: ALLERGIES No Known Allergies PAST MEDICAL HISTORY Diagnosis Date ADD (attention deficit disorder) 08/28/2011 Diabetes (HCC) Hypertension 08/28/2011 PAST SURGICAL HISTORY Procedure Laterality Date ARTHROSCOPY KNEE DIAGNOSTIC W/WO SYNOVIAL BX SPX Left 2014 meniscus OSTECTOMY CALCANEUS SPUR W/WO PLNTAR FASCIAL RLS Left REPAIR NASAL SEPTUM PERFORATN devation REPAIR UMBILICAL HERNIA 01/08/16 FAMILY HISTORY Problem Relation Age of Onset Diabetes Mother Lung Cancer Mother Amblyopia Father other (gastric CA) Father Diabetes Brother Cataract Brother Social History Tobacco Use Smoking status: Never Smokeless tobacco: Never Vaping Use Vaping Use: Never used Substance Use Topics Alcohol use: No Drug use: No Reviewed current medications, allergies, past medical history, surgical history, family history andsocial history today. REVIEW OF SYSTEMS All other reviewed and negative other than HPI. HEALTH MAINTENANCE: Reviewed health maintenance issues today and recommended the following in detail. COLORECTAL CANCER SCREENING -scheduled VITALS: BP 136/82 Pulse 90 Ht 180.3 cm (5' 11) Wt 113.4 kg (250 lb) SpO2 96% BMI 34.87 kg/m Last 4 Encounter Wt Readings: Date: Wt: 12/25/2022 111.7 kg (246 lb 3.2 oz) 12/21/2022 111.9 kg (246 lb 9.6 oz) 06/16/2022 113.4 kg (250 lb) 04/21/2022 116.6 kg (257 lb) PHYSICAL EXAMINATION: General appearance: Well appearing, alert, in no acute distress, well-hydrated, well nourished. Skin: Skin color, texture, turgor normal, no suspicious rashes or lesions Head: Normocephalic, no masses, lesions, tenderness or abnormalities Lungs: Lungs clear to auscultation. No wheezing, rhonchi, rales Heart: RRR without murmur, gallop, or rubs. No ectopy Abdomen: Normal abdominal exam, Abdomen soft, non-tender. Bowel sounds normal. No masses, organomegaly Extremities: No deformities, edema, skin discoloration, clubbing or cyanosis. Good capillary refill. ASSESSMENT/PLAN: 1. Primary hypertension - ICD9: 401.9, ICD10: I10 (primary diagnosis) - better off of meds. Continue to follow. 2. Type 2 diabetes mellitus without complication, without long-term current use of insulin (HCC) - ICD9: 250.00, ICD10: E11.9 - still high. Will see what we can get covered for him. Wes Gates MD Bp check and pulse check in one month. Then keep next appt. documented in this encounterUc Health07-18-2023 Miscellaneous Notes* Telephone Encounter - Jourdan Armendariz LPN - 12/22/2022 12:44 PM EDT Pt notified. He verbalized understanding. Pt is currently scheduled for appt's on 01/21 and 03/23. He will plan to keep those appt's. Jourdan Armendariz LPN * Telephone Encounter - Wes Gates MD - 12/22/2022 12:11 PM EDT Sugars are bad. Urine is ok. Increase amaryl to 2 mg a day. Check sugars once a day and call list in one week. Rto in eight weeks documented in this encounterUc Health07-17-2023 Miscellaneous Notes* Addendum Note - Wes Gates MD - 12/21/2022 4:45 PM EDTAddended by: WES GATES on: 12/21/2022 04:45 PM Modules accepted: Orders * Addendum Note - Wes Gates MD - 12/21/2022 4:02 PM EDTAddended by: WES GATES on: 12/21/2022 04:02 PM Modules accepted: Orders documented in this encounterUc Health07-17-2023 History of Present illness Narrative* Wes Gates MD - 12/21/2022 3:26 PM EDT Patient presents with: Follow Up HPI: Patient presents today for office visit for follow up. HTN: No longer taking BP meds When taking the medications it caused BP to drop really low. He did not check his bp while on it. He just felt the cold. Monitors BP at home and readings are usually stable Denies chest pain and shortness of breath No headaches or dizziness No palpitations No syncope No edema ADD: Current Treatment: Adderall 30 mg BID Feels treatment is working well: Yes. Weight loss: No. Insomnia: No. GASTROENTEROLOGY complaints: No. Tremor: No. Mood disorder: No. Chest pain/Palpitations: No. Aware of risks associated with controlled substance use: Yes. Hx of misuse/abuse/diversion of meds: No. Oarrs done. DM: Does not check sugars at home unless he feels bad Doesn't watch diet too closely. Tries to eat healthy. Exercises and plays pickle ball. Taking Glimepiride and Pioglitazone HLD: Taking Atorvastatin. Had complaints of sharp/shooting pain in left side of chest. Daily. Episodes only last seconds. Was a quick jab at rest. Discussed it is does not sound cardiac. No chest pain while exerting. Plays pickleball 4-5 times for several hours a week, high intensity. Has not taken his Atorvastatin in over week and states these pains have stopped. The 10-year ASCVD risk score (Ana MONTERROSO, et al., 2019) is: 13.5% Values used to calculate the score: Age: 52 years Sex: Male Is Non- : No Diabetic: Yes Tobacco smoker: No Systolic Blood Pressure: 146 mmHg Is BP treated: No HDL Cholesterol: 35 mg/dL Total Cholesterol: 221 mg/dL MEDICATIONS: Current Outpatient Medications Medication Sig Amphetamine-Dextroamphetamine (ADDERALL) 30 mg tablet Take 1 tablet by mouth once daily for 30 days. Amphetamine-Dextroamphetamine (ADDERALL) 30 mg tablet Take 1 tablet by mouth once daily for 30 days. Do not start before November 30, 2022. pioglitazone (ACTOS) 15 mg tablet Take 1 tablet by mouth once daily. glimepiride (AMARYL) 1 mg tablet Take 1 tablet by mouth daily with breakfast. atorvastatin (LIPITOR) 20 mg tablet Take 1 tablet by mouth daily at bedtime. For cholesterol. No current facility-administered medications for this visit. ALLERGIES: ALLERGIES No Known Allergies PAST MEDICAL HISTORY Diagnosis Date ADD (attention deficit disorder) 08/28/2011 Diabetes (HCC) Hypertension 08/28/2011 PAST SURGICAL HISTORY Procedure Laterality Date ARTHROSCOPY KNEE DIAGNOSTIC W/WO SYNOVIAL BX SPX Left 2014 meniscus OSTECTOMY CALCANEUS SPUR W/WO PLNTAR FASCIAL RLS Left REPAIR NASAL SEPTUM PERFORATN devation REPAIR UMBILICAL HERNIA 01/08/16 FAMILY HISTORY Problem Relation Age of Onset Amblyopia Father other (gastric CA) Father Diabetes Mother Diabetes Brother Cataract Brother Social History Tobacco Use Smoking status: Never Smokeless tobacco: Never Vaping Use Vaping Use: Never used Substance Use Topics Alcohol use: No Drug use: No Reviewed current medications, allergies, past medical history, surgical history, family history andsocial history today. REVIEW OF SYSTEMS All other reviewed and negative other than HPI. HEALTH MAINTENANCE: Reviewed health maintenance issues today and recommended the following in detail. COLORECTAL CANCER SCREENING Never done DEPRESSION ASSESSMENT Never done HBA1C due on 06/17/2022 VITALS: BP 146/88 Pulse 88 Ht 180.3 cm (5' 11) Wt 111.9 kg (246 lb 9.6 oz) SpO2 96% BMI 34.39 kg/m Last 4 Encounter Wt Readings: Date: Wt: 06/16/2022 113.4 kg (250 lb) 04/21/2022 116.6 kg (257 lb) 03/16/2022 115.7 kg (255 lb) 10/16/2021 115.2 kg (254 lb) PHYSICAL EXAMINATION: General appearance: Well appearing, alert, in no acute distress, well-hydrated, well nourished. Skin: Skin color, texture, turgor normal, no suspicious rashes or lesions Head: Normocephalic, no masses, lesions, tenderness or abnormalities Eyes: Anicteric sclera. Pupils are equally round and reactive to light. Extraocular movements are intact. Chest wall slightly sore to palpation on left chest wall. Lungs: Lungs clear to auscultation. No wheezing, rhonchi, rales Heart: RRR without murmur, gallop, or rubs. No ectopy Abdomen: Normal abdominal exam, Abdomen soft, non-tender. Bowel sounds normal. No masses, organomegaly Extremities: No deformities, edema, skin discoloration, clubbing or cyanosis. Good capillary refill. ASSESSMENT/PLAN: 1. Primary hypertension - ICD9: 401.9, ICD10: I10 (primary diagnosis) -- resume meds. Follow up in one month - AMLODIPINE 2.5 MG TABLET 2. Screening for colon cancer - ICD9: V76.51, ICD10: Z12.11 - CONSULT TO GENERAL SURGERY 3. Type 2 diabetes mellitus without complication, without long-term current use of insulin (HCC) - ICD9: 250.00, ICD10: E11.9 - check a1c 4. Attention deficit disorder, unspecified hyperactivity presence - ICD9: 314.00, ICD10: F98.8 - continue meds. Dr. Alvarez was writing. Asked us to take 5. Hyperlipidemia, unspecified hyperlipidemia type - ICD9: 272.4, ICD10: E78.5 Resume meds. Wes Gates MD documented in this encounterUc Health03-28-2023 Miscellaneous Notes* Telephone Encounter - Wes Gates MD - 09/01/2022 4:23 PM EDT Not tolerating his metformin. Not taking it. Will try actos. documented in this encounterUc Health03-28-2023 History of Present illness Narrative* Jacob Mays, OD - 09/01/2022 2:42 PM EDT 1. Type 2 diabetes mellitus without retinopathy (HCC) Risk of diabetic changes and vision loss can be minimized by tight control of blood sugar, blood pressure, and cholesterol levels. Educated patient to continue care with primary care doctor and/or concrete carpenter to maintain optimum levels as they are important to avoid ocular complications. Encouraged patient to call the office immediately with any changes to vision or visual concerns. Advised to not wait until the next scheduled exam. 2. Dry eye syndrome of bilateral lacrimal glands Use warm compresses and artificial tears as needed 3. Regular astigmatism of both eyes 4. Presbyopia Finalized spec rx Okay to use readers Follow-up in 1 year Jacob Mays, OD September 01, 2022 2:43 PM documented in this encounterUc Health01-10-2023 Instructions* Patient Instructions* Rani Perales APRN.CNP - 06/16/2022 10:20 AM EST Get labs. Schedule with gen surg for colonoscopy. Schedule with eye doctor. Start the amlodipine daily. Recheck in a month. documented in this encounterUc Health01-10-2023 History of Present illness Narrative* Rani Perales APRN.CNP - 06/16/2022 10:01 AM EST This is a 52 year old male who presents today with: Patient presents with: Recheck: 3 month follow up HISTORY OF PRESENT ILLNESS: Sivan Tamayo is a 52 year old male. Patient presents with: Recheck: 3 month follow up Pt presents today for three month follow-up. Refers a lot of stress. Refers that he started the losartan. Refers it made him lightheaded. Noticed about 4 days into treatment. HTN: Patient is compliant with meds No Monitors bp at home: No. Denies side effects: No. Chest pain: No. Dyspnea: No. Edema: No. Palpitations: No. Syncope: No. Headache: No. Dizziness: did with the losartan. Plays pickleball 3-4 times weekly. Notices that his toes will feel very cold at times. Not cold to touch. No discoloration. Sometimes some n/t. Diabetes: Will forget metformin a couple times weekly. Due for repeat A1C. PAST MEDICAL HISTORY: PAST MEDICAL HISTORY Diagnosis Date ADD (attention deficit disorder) 08/28/2011 Diabetes (HCC) Hypertension 08/28/2011 PAST SURGICAL HISTORY Procedure Laterality Date ARTHROSCOPY KNEE DIAGNOSTIC W/WO SYNOVIAL BX SPX Left 2014 meniscus OSTECTOMY CALCANEUS SPUR W/WO PLNTAR FASCIAL RLS Left REPAIR NASAL SEPTUM PERFORATN devation REPAIR UMBILICAL HERNIA 01/08/16 ALLERGIES Patient has no known allergies. MEDICATIONS Current Outpatient Medications Medication Sig amphetamine-dextroamphetamine (ADDERALL) 15 mg tablet Take 2 tablets by mouth twice daily for 30 days. glimepiride (AMARYL) 1 mg tablet Take 1 tablet by mouth daily with breakfast. metFORMIN ER (GLUCOPHAGE XR) 500 mg 24 hr tablet Take 2 tablets by mouth daily with breakfast. losartan (COZAAR) 25 mg tablet Take 1 tablet by mouth once daily. atorvastatin (LIPITOR) 20 mg tablet Take 1 tablet by mouth daily at bedtime. For cholesterol. Amphetamine-Dextroamphetamine (ADDERALL) 30 mg tablet Take 1 tablet by mouth twice daily for 30 days. Do not start before March 05, 2022. No current facility-administered medications for this visit. FAMILY HISTORY Problem Relation Age of Onset Amblyopia Father other (gastric CA) Father Diabetes Mother Diabetes Brother Cataract Brother Social History Tobacco Use Smoking status: Never Smokeless tobacco: Never Vaping Use Vaping Use: Never used Substance Use Topics Alcohol use: No Drug use: No EXAM: BP 141/92 Pulse 82 Resp 18 Wt 113.4 kg (250 lb) SpO2 98% BMI 34.87 kg/m PHYSICAL EXAM: General Appearance: Well appearing, alert, in no acute distress, well-hydrated, well nourished.. Skin: Skin color, texture, turgor normal, no suspicious rashes or lesions. Head: Normocephalic, no masses, lesions, tenderness or abnormalities. Eyes: Anicteric sclera. Extraocular movements are intact. Lungs: Lungs clear to auscultation. No wheezing, rhonchi, rales.. Heart: RRR without murmur, gallop, or rubs. No ectopy. Extremities: No deformities, edema, skin discoloration, clubbing or cyanosis. Good capillary refill. . Neurologic: Gait normal. Feet:Shoes and socks removed, No deformities, ulcers, calluses, and sensitive to 10 gm monofilament. +2 pp. Good cap refill. ASSESSMENT/PLAN: 1. Primary hypertension - ICD9: 401.9, ICD10: I10 (primary diagnosis) - suboptimal control Didn't tolerate the losartan. - Begin amlodipine (Norvasc) - Recommended regular aerobic exercise. - Recommend home blood pressure monitoring, to bring results in on next visit - Goal of BP <130/80 - AMLODIPINE 2.5 MG TABLET 2. Type 2 diabetes mellitus without complication, without long-term current use of insulin (HCC) - ICD9: 250.00, ICD10: E11.9 Due for recheck. Due for eye exam. Encouraged daily use of medication. - HGB A1C - CONSULT TO OPTOMETRY 3. Screening for colon cancer - ICD9: V76.51, ICD10: Z12.11 - CONSULT TO GENERAL SURGERY 4. Type 2 diabetes mellitus with diabetic neuropathy, without long-term current use of insulin (HCC) - ICD9: 250.60, 357.2, ICD10: E11.40 Suspect some neuropathy changes of toes. Encouraged good diabetes control. Discussed treatment plan and patient voices understanding. Patient's questions answered appropriately. Medications and potential side effects were discussed and patient voices understanding. Return to the office as scheduled or as needed for worsening/no improvement. Rani Perales APRN.PATIENT CASE MANAGER documented in this encounterUc Health01-03-2023 Miscellaneous Notes* Telephone Encounter - Wes Gates MD - 06/09/2022 1:29 PM EST We do not write, will forward to writing physician. * Telephone Encounter - Rubina Mclaughlin MA - 06/09/2022 1:27 PM EST Pharmacy verified in [facility]. Patient has been identified by name and date of : Yes Patient aware RX will be sent to pharmacy. No need to notify patient. Patient phones for refill(s): Requested Prescriptions Pending Prescriptions Disp Refills Amphetamine-Dextroamphetamine (ADDERALL) 30 mg tablet 60 tablet 0 Sig: Take 1 tablet by mouth twice daily for 30 days. Date of last office visit : Visit date not found Date of next office visit : Visit date not found Last 2 Encounter Wt Readings: Date: Wt: 04/21/2022 116.6 kg (257 lb) 03/16/2022 115.7 kg (255 lb) Not applicable Please advise. Rubina Mclaughlin MA documented [facility] this [facility]12-07-2022 Miscellaneous Notes* Telephone Encounter - Beatriz Sanchez LPN - 05/13/2022 10:14 AM EST Patient has been identified by name and date of : Yes Patient phones for refill(s): Requested Prescriptions Pending Prescriptions Disp Refills glimepiride (AMARYL) 1 mg tablet 90 tablet 0 Sig: Take 1 tablet by mouth daily with breakfast. Date of last office visit in primary care: 04/21/22 Please advise. Thank you. Betariz Sanchez LPN documented in this [facility]11-15-2022 Instructions* Patient Instructions* Rani Perales APRN.GRACE - 04/21/2022 9:11 AM EST Start the losartan daily. Change the metformin to XR -- you can do one pill twice daily or two pills by mouth daily w/ breakfast. Get the repeat labwork. Recheck for BP check in 1 month. documented in this encounterCleveland [id number] History of Present illness Narrative* Rani Perales APRN.PATIENT CASE MANAGER - 04/21/2022 8:41 AM EST This is a 52 year old male who presents today with: Patient presents with: Recheck: Blood pressure check HISTORY OF PRESENT ILLNESS: Sivan Tamayo is a 52 year old male. Patient presents with: Recheck: Blood pressure check DM Resumed metformin. Sometimes problems remembering second dose of the day. Gets some loose stools. Hyperlipidemia. Refers that he is taking the atorvastatin. He gets a sharp pain in the ribs. Refers lasts for about a breath. Active -- plays pickleball -- stays hydrated. HTN: Patient is compliant with meds n/a. Monitors bp at home: No. Denies side effects: n/a. Chest pain: see above. Dyspnea: No. Edema: left ankle from pulling calf about 5 weeks ago. Palpitations: No. Syncope: gets some dizziness when he stands up. Headache: No. Dizziness: No. PAST MEDICAL HISTORY: PAST MEDICAL HISTORY Diagnosis Date ADD (attention deficit disorder) 08/28/2011 Diabetes (HCC) Hypertension 08/28/2011 PAST SURGICAL HISTORY Procedure Laterality Date ARTHROSCOPY KNEE DIAGNOSTIC W/WO SYNOVIAL BX SPX Left 2014 meniscus OSTECTOMY CALCANEUS SPUR W/WO PLNTAR FASCIAL RLS Left REPAIR NASAL SEPTUM PERFORATN devation REPAIR UMBILICAL HERNIA 01/08/16 ALLERGIES Patient has no known allergies. MEDICATIONS Current Outpatient Medications Medication Sig metFORMIN (GLUCOPHAGE) 500 mg tablet Take 1 tablet by mouth twice daily with meals. atorvastatin (LIPITOR) 20 mg tablet Take 1 tablet by mouth daily at bedtime. For cholesterol. glimepiride (AMARYL) 1 mg tablet Take 1 tablet by mouth daily with breakfast. Amphetamine-Dextroamphetamine (ADDERALL) 30 mg tablet Take 1 tablet by mouth twice daily for 30 days. Do not start before March 05, 2022. Amphetamine-Dextroamphetamine (ADDERALL) 30 mg tablet Take 1 tablet by mouth twice daily for 30 days. No current facility-administered medications for this visit. FAMILY HISTORY Problem Relation Age of Onset Amblyopia Father other (gastric CA) Father Diabetes Mother Diabetes Brother Cataract Brother Social History Tobacco Use Smoking status: Never Smokeless tobacco: Never Vaping Use Vaping Use: Never used Substance Use Topics Alcohol use: No Drug use: No EXAM: BP 162/100 Pulse 82 Resp 18 Wt 116.6 kg (257 lb) SpO2 97% BMI 35.84 kg/m PHYSICAL EXAM: General Appearance: Well appearing, alert, in no acute distress, well-hydrated, well nourished.. Skin: Skin color, texture, turgor normal, no suspicious rashes or lesions. Head: Normocephalic, no masses, lesions, tenderness or abnormalities. Eyes: Anicteric sclera. Extraocular movements are intact. Neck: Supple, no adenopathy; thyroid symmetric, normal size, no bruits. Lungs: Lungs clear to auscultation. No wheezing, rhonchi, rales.. Heart: RRR without murmur, gallop, or rubs. No ectopy. Extremities: No deformities, edema, skin discoloration, clubbing or cyanosis. Good capillary refill. Neurologic: Gait normal. ASSESSMENT/PLAN: 1. Primary hypertension - ICD9: 401.9, ICD10: I10 (primary diagnosis) - suboptimal control - Add losartan(Cozaar) - Recommended regular aerobic exercise. - Recommend home blood pressure monitoring, to bring results in on next visit - Goal of BP <130/80 - LOSARTAN 25 MG TABLET 2. Type 2 diabetes mellitus without complication, without long-term current use of insulin (HCC) - ICD9: 250.00, ICD10: E11.9 uncontrolled Some trouble w/ compliance taking twice daily and some loose stools. Will go ahead and change to XR. - METFORMIN ER 500 MG TABLET,EXTENDED RELEASE 24 HR 3. Mixed hyperlipidemia - ICD9: 272.2, ICD10: E78.2 Continue atorvastatin. Stay hydrated. Discussed treatment plan and patient voices understanding. Patient's questions answered appropriately. Medications and potential side effects were discussed and patient voices understanding. Return to the office as scheduled or as needed for worsening/no improvement. Rani Perales APRN.GRACE This note was partially generated using [employer] voice recognition system. Note was reviewed for accuracy. There may be minor misspellings or grammar miscues with [employer] voice recognition. [facility] Miscellaneous Notes* Telephone Encounter - Steffi Henriquez - 03/18/2022 2:28 PM EDT Patient requested my chart response follow up. Message sent. Steffi Henriquez * Telephone Encounter - Wes Gates MD - 03/18/2022 2:21 PM EDT Get her in sooner. * Telephone Encounter - Steffi Henriquez - 03/18/2022 2:17 PM EDT Spoke with patient. Informed of results and to resume medication. Verbalized understanding. Medications were sent to wrong pharmacy. Re-pended with correct pharmacy. Please resend. Patient scheduled for f/u with Rani in June. Is this ok? Steffi Henriquez * Telephone Encounter - Wes Gates MD - 03/18/2022 12:57 PM EDT Sugars are bad and cholesterol is bad. Resume metformin and lipitor. Check labs in six weeks and follow with Rani or myself in six weeks. Rx sent in [facility] History of Present illness Narrative* Wes Gates MD - 03/16/2022 6:36 PM EDT Patient presents with: Pain: Left calf pain. Downs pop playing football yesterday. Diabetes HPI: Patient presents today for office visit for follow up. Has chronic knee issues. Noted the right knee was bothering a little more today but is not doing itright. Not hot or red or warm. Was playing safety and running and felt a pop in the calf. Feels swollen. No redness or bruising. No hx of dvts Is pinpoint tender. Icing, wrapping and elevating. Is less painful than it was. Not taking bp meds or lipitor. Was also on losartan for renal protection. No chest pain or shortness of breath. No edema. Is only taking one of his meds. Discussed issues with noncompliance and risks of nontreatment. The 10-year ASCVD risk score (Ana MONTERROSO, et al., 2019) is: 14% Values used to calculate the score: Age: 51 years Sex: Male Is Non- : No Diabetic: Yes Tobacco smoker: No Systolic Blood Pressure: 132 mmHg Is BP treated: No HDL Cholesterol: 30 mg/dL Total Cholesterol: 242 mg/dL MEDICATIONS: Current Outpatient Medications Medication Sig glimepiride (AMARYL) 1 mg tablet Take 1 tablet by mouth daily with breakfast. Amphetamine-Dextroamphetamine (ADDERALL) 30 mg tablet Take 1 tablet by mouth twice daily for 30 days. Do not start before March 05, 2022. Amphetamine-Dextroamphetamine (ADDERALL) 30 mg tablet Take 1 tablet by mouth twice daily for 30 days. losartan (COZAAR) 50 mg tablet Take 1 tablet by mouth once daily. (Patient not taking: Reported on 03/16/2022) metFORMIN ER (GLUCOPHAGE XR) 500 mg 24 hr tablet Take 4 tablets by mouth daily with breakfast. (Patient not taking: Reported on 03/16/2022) atorvastatin (LIPITOR) 20 mg tablet Take 1 tablet by mouth daily at bedtime. For cholesterol. (Patient not taking: Reported on 03/16/2022) aspirin, enteric coated (ASPIRIN, ENTERIC COATED) 81 mg EC tablet Take 81 mg by mouth once daily. (Patient not taking: Reported on 03/16/2022) No current facility-administered medications for this visit. ALLERGIES: ALLERGIES No Known Allergies PAST MEDICAL HISTORY Diagnosis Date ADD (attention deficit disorder) 08/28/2011 Diabetes (HCC) Hypertension 08/28/2011 PAST SURGICAL HISTORY Procedure Laterality Date ARTHROSCOPY KNEE DIAGNOSTIC W/WO SYNOVIAL BX SPX Left 2014 meniscus OSTECTOMY CALCANEUS SPUR W/WO PLNTAR FASCIAL RLS Left REPAIR NASAL SEPTUM PERFORATN devation REPAIR UMBILICAL HERNIA 01/08/16 FAMILY HISTORY Problem Relation Age of Onset Amblyopia Father other (gastric CA) Father Diabetes Mother Diabetes Brother Cataract Brother Social History Tobacco Use Smoking status: Never Smokeless tobacco: Never Vaping Use Vaping Use: Never used Substance Use Topics Alcohol use: No Drug use: No Reviewed current medications, allergies, past medical history, surgical history, family history andsocial history today. REVIEW OF SYSTEMS All other reviewed and negative other than HPI. VITALS: BP 132/72 Pulse 76 Wt 115.7 kg (255 lb) BMI 35.57 kg/m Last 4 Encounter Wt Readings: Date: Wt: 03/16/2022 115.7 kg (255 lb) 10/16/2021 115.2 kg (254 lb) 08/07/2021 115.2 kg (254 lb) 08/04/2021 114.8 kg (253 lb 2.4 oz) PHYSICAL EXAMINATION: General appearance: Well appearing, alert, in no acute distress, well-hydrated, well nourished. Skin: Skin color, texture, turgor normal, no suspicious rashes or lesionsfoll Head: Normocephalic, no masses, lesions, tenderness or abnormalities Lungs: Lungs clear to auscultation. No wheezing, rhonchi, rales Heart: RRR without murmur, gallop, or rubs. No ectopy Abdomen: Normal abdominal exam, Abdomen soft, non-tender. Bowel sounds normal. No masses, organomegaly Extremities: No deformities, edema, skin discoloration, clubbing or cyanosis. Good capillary refill. , No cords. Sore over gastroc but based on injury suspect is related to sprain. No redness or warmth. Musculoskeletal: No joint swelling, deformity, or tenderness. Knee exam is benign. ASSESSMENT/PLAN: 1. Primary hypertension - ICD9: 401.9, ICD10: I10 (primary diagnosis) - bp check in one month - LIPID PANEL BASIC - HGB A1C - CBC + DIFF - COMP METABOLIC PANEL - ALBUMIN/CREAT RATIO RND UR 2. Type 2 diabetes mellitus without complication, without long-term current use of insulin (HCC) - ICD9: 250.00, ICD10: E11.9 - check labs. - LIPID PANEL BASIC - HGB A1C - CBC + DIFF - COMP METABOLIC PANEL - ALBUMIN/CREAT RATIO RND UR 3. Muscle cramping - ICD9: 729.82, ICD10: R25.2 - may be enhanced due to poor control. Continue current tx. Call if symptoms worsen at all or if not better in one to two weeks Red flags for re-assessment reviewed with patient in detail. No need for duplex etc on exam. 4. Chronic pain of both knees - ICD9: 719.46, 338.29, ICD10: M25.561, M25.562, G89.29 - consider ortho if worsens. Wes Gates MD documented in this [facility]10-05-2022 Miscellaneous Notes* Telephone Encounter - Sharon Barnes RN - 03/11/2022 11:17 AM EDT Pt called for DM update. No answer. LM for pt to return call to phone number. Sharon Barnes RN documented in this [facility]08-30-2022 Miscellaneous Notes* Telephone Encounter - Carolina Thomas Ma - 02/03/2022 10:46 AM EDT Patient has been identified by name and date of : Yes Requested Prescriptions Pending Prescriptions Disp Refills glimepiride (AMARYL) 1 mg tablet 90 tablet 1 Sig: Take 1 tablet by mouth daily with breakfast. BRIDGETT 10/16/21 NOV none scheduled, had appt scheduled 01/22/22 that was canceled and not rescheduled. RX INSTRUCTIONS: Patient aware RX will be sent to pharmacy. No need to notify patient. Carolina Thomas Ma documented in this [facility]07-27-2022 Miscellaneous Notes* Telephone Encounter - Sharon Barnes RN - 12/31/2021 11:32 AM EDT Spoke to pt for DM update. States his blood sugars have been running 160s fasting. Says he will come in tomorrow am for Hgb A1C lab draw. Please place orders. Thank you. Sharon Barnes RN documented in this [facility]05-12-2022 History of Present illness Narrative* Wes Gates MD - 10/16/2021 10:50 AM EDT Patient presents with: Follow Up: 2 month follow up HPI: Patient presents today for office visit for follow up. Missed last pharmacy and bp check appts. HYPERTENSION:bp is much better today. Gets dizzy on standing at times. Wonders if he has been drinking enough. No chest pain. No shortness of breath. No edema. DM:his sugars are doing better. No hypoglycemic spells. ADD: meds written by Dr. Alvarez HLD:no myalgias. Component Latest Ref Rng & Units 07/04/2021 07/05/2021 07/05/2021 07/05/2021 8:45 AM 8:45 AM 8:46 AM WBC 3.70 - 11.00 k/uL 3.71 RBC 4.20 - 6.00 m/uL 5.19 Hemoglobin 13.0 - 17.0 g/dL 14.9 Hematocrit 39.0 - 51.0 % 45.1 MCV 80.0 - 100.0 fL 86.9 MCH 26.0 - 34.0 pG 28.7 MCHC 30.5 - 36.0 g/dL 33.0 RDW-CV 11.5 - 15.0 % 12.4 Platelet Count 150 - 400 k/uL 198 MPV 9.0 - 12.7 fL 10.1 Neut% % 45.5 Abs Neut (ANC) 1.45 - 7.50 k/uL 1.68 Lymph% % 39.4 Abs Lymph 1.00 - 4.00 k/uL 1.46 Teton% % 11.1 Abs [place] <0.87 k/uL 0.41 Eosin% % 3.2 Abs Eosin <0.46 k/uL 0.12 Baso% % 0.8 Abs Baso <0.11 k/uL 0.03 Nucleated Reds 0 /100 WBC 0.0 Absolute nRBC <0.01 k/uL <0.01 Diff Type Auto Diff Protein, Total 6.3 - 8.0 g/dL 7.6 Albumin 3.9 - 4.9 g/dL 4.4 Calcium 8.5 - 10.2 mg/dL 9.1 Bilirubin, Total 0.2 - 1.3 mg/dL 0.7 Alkaline Phosphatase 38 - 113 U/L 118 (H) AST 14 - 40 U/L 25 Glucose 74 - 99 mg/dL 265 (H) BUN 9 - 24 mg/dL 12 Creatinine 0.73 - 1.22 mg/dL 0.67 (L) Sodium 136 - 144 mmol/L 136 Potassium 3.7 - 5.1 mmol/L 4.3 Chloride 97 - 105 mmol/L 103 CO2 22 - 30 mmol/L 21 (L) Anion Gap 9 - 18 mmol/L 12 ALT 10 - 54 U/L 31 eGFR- >60 eGFR-All Other Races . >60 Cholesterol, Total <200 mg/dL 242 (H) Triglyceride <150 mg/dL 467 (H) HDL Cholesterol >39 mg/dL 30 (L) LDL Cholesterol <100 mg/dL Unable to calculate due to increased Triglycerides. See LDL-Chol, Direct. Non HDL Cholesterol <130 mg/dL 212 (H) Fasting Time hrs 12 VLDL Cholesterol <30 mg/dL Unable to calculate due to increased Triglycerides. See LDL-Chol, Direct. 90 (H) TC:HDL Ratio <5.10 8.07 (H) LDL:HDL Ratio <2.54 Unable to calculate due to elevated Triglycerides. Creatinine, Ur Random (UCRR) 20 - 300 mg/dL 108.4 Albumin, Urine Random mg/L 26.2 Albumin/Creat Ratio <30 mg/g 24 HIV 12 Combo (Ag/Ab) Non Reactive Non Reactive HIV-1/2 AB Test Not Indicated HIV Interpretation Negative LDL Cholesterol, Direct <100 mg/dL 122 (H) Hemoglobin A1C (POCT) 4.2 - 5.6 % 10.7 (A) Hep C Antibody IA Negative Negative MEDICATIONS: Current Outpatient Medications Medication Sig metFORMIN ER (GLUCOPHAGE XR) 500 mg 24 hr tablet Take 4 tablets by mouth daily with breakfast. losartan (COZAAR) 100 mg tablet Take 1 tablet by mouth once daily. (Patient taking differently: Take 50 mg by mouth once daily. ) atorvastatin (LIPITOR) 20 mg tablet Take 1 tablet by mouth daily at bedtime. For cholesterol. glimepiride (AMARYL) 1 mg tablet Take 1 tablet by mouth daily with breakfast. aspirin, enteric coated (ASPIRIN, ENTERIC COATED) 81 mg EC tablet Take 81 mg by mouth once daily. Amphetamine-Dextroamphetamine (ADDERALL) 30 mg tablet Take 1 tablet by mouth twice daily for 7 days. Amphetamine-Dextroamphetamine (ADDERALL) 30 mg tablet Take 1 tablet by mouth twice daily for 7 days. Do not start before September 07, 2021. Amphetamine-Dextroamphetamine (ADDERALL) 30 mg tablet Take 1 tablet by mouth twice daily for 7 days. Do not start before October 07, 2021. No current facility-administered medications for this visit. ALLERGIES: ALLERGIES No Known Allergies PAST MEDICAL HISTORY Diagnosis Date ADD (attention deficit disorder) 08/28/2011 Diabetes (HCC) Hypertension 08/28/2011 PAST SURGICAL HISTORY Procedure Laterality Date ARTHROSCOPY KNEE DIAGNOSTIC W/WO SYNOVIAL BX SPX Left 2014 meniscus OSTECTOMY CALCANEUS SPUR W/WO PLNTAR FASCIAL RLS Left REPAIR NASAL SEPTUM PERFORATN devation REPAIR UMBILICAL HERNIA 01/08/16 FAMILY HISTORY Problem Relation Age of Onset Amblyopia Father other (gastric CA) Father Diabetes Mother Diabetes Brother Cataract Brother Social History Tobacco Use Smoking status: Never Smoker Smokeless tobacco: Never Used Vaping Use Vaping Use: Never used Substance Use Topics Alcohol use: No Drug use: No Reviewed current medications, allergies, past medical history, surgical history, family history andsocial history today. REVIEW OF SYSTEMS All other reviewed and negative other than HPI. HEALTH MAINTENANCE: Reviewed health maintenance issues today and recommended the following in detail. DIABETIC FOOT EXAM Never done BP CONTROLLED (<130/80) Never done COLORECTAL CANCER SCREENING -still considering. DILATED RETINAL EXAM -recommended. VITALS: BP 138/82 Pulse 80 Wt 115.2 kg (254 lb) BMI 35.43 kg/m BP w/Orthostatic Vitals Date and Time Orthostatic BP Orthostatic Pulse BP Pulse BP Position BP Site BP Cuff Size 10/16/21 1107 137/88 87 -- -- Standing Right Arm Large Adult 10/16/21 1105 136/79 78 -- -- Supine Right Arm Large Adult 10/16/21 1040 -- -- 138/82 80 -- -- -- Last 4 Encounter Wt Readings: Date: Wt: 10/16/2021 115.2 kg (254 lb) 08/07/2021 115.2 kg (254 lb) 08/04/2021 114.8 kg (253 lb 2.4 oz) 07/16/2021 115.2 kg (254 lb) PHYSICAL EXAMINATION: General appearance: Well appearing, alert, in no acute distress, well-hydrated, well nourished. Skin: Skin color, texture, turgor normal, no suspicious rashes or lesions Head: Normocephalic, no masses, lesions, tenderness or abnormalities Neck: Supple, no adenopathy; thyroid symmetric, normal size, no bruits Lungs: Lungs clear to auscultation. No wheezing, rhonchi, rales Heart: RRR without murmur, gallop, or rubs. No ectopy Abdomen: Normal abdominal exam, Abdomen soft, non-tender. Bowel sounds normal. No masses, organomegaly Extremities: No deformities, edema, skin discoloration, clubbing or cyanosis. Good capillary refill. Musculoskeletal: No joint swelling, deformity, or tenderness Feet:Shoes and socks removed, No deformities, ulcers, calluses, normal distal pulses and sensitive to 10 gm monofilament ASSESSMENT/PLAN: 1. Primary hypertension - ICD9: 401.9, ICD10: I10 (primary diagnosis) - good control - Make sure pushing adequate fluids. - Goal of BP <130/80 - BASIC METABOLIC PNL 2. Type 2 diabetes mellitus without complication, without long-term current use of insulin (HCC) - ICD9: 250.00, ICD10: E11.9 - check labs. - HGB A1C 3. Mixed hyperlipidemia - ICD9: 272.2, ICD10: E78.2 - HEPATIC FUNCTION PNL - LIPID PANEL BASIC Wes Gates MD documented in this encounter[facility]01-03-2022 Miscellaneous Notes* Telephone Encounter - Jourdan Armendariz LPN - 06/09/2021 9:54 AM EST Schedulers please assist pt with scheduling appt to establish care with Dr. Yajaira Armendariz LPN * Telephone Encounter - Wes Gates MD - 06/09/2021 9:43 AM EST Ok to do since to patient. * Telephone Encounter - Shaila Vernon LPN - 06/09/2021 9:37 AM EST Pt calls to report that is a pt of Dr. Phoenix and was told that Dr. Gates would take pt on. Please review and advise. Call pt with dr's message. Shaila Vernon LPN documented [facility]* Diagnosis Primary hypertension- Primary Unspecified essential hypertension Type 2 diabetes mellitus without complication, without long-term current use of insulin (HCC) Mixed hyperlipidemia [facility] Diagnosis Type 2 diabetes mellitus without complication, without long-term current use of insulin (HCC)- Primary [facility]* Diagnosis ADHD (attention deficit hyperactivity disorder), inattentive type Attention deficit disorder without mention of hyperactivity [facility]* Diagnosis ADHD (attention deficit hyperactivity disorder), inattentive type Attention deficit disorder without mention of hyperactivity [facility]* Diagnosis Type 2 diabetes mellitus without complication, without long-term current use of insulin (HCC) [facility]* Diagnosis Primary hypertension- Primary Unspecified essential hypertension Type 2 diabetes mellitus without complication, without long-term current use of insulin (HCC) Muscle cramping Cramp of limb Chronic pain of both knees [facility]* Diagnosis Type 2 diabetes mellitus without complication, without long-term current use of insulin (HCC)- Primary [facility]* Diagnosis Primary hypertension- Primary Unspecified essential hypertension Type 2 diabetes mellitus without complication, without long-term current use of insulin (HCC) Mixed hyperlipidemia [facility]* Diagnosis Type 2 diabetes mellitus without complication, without long-term current use of insulin (HCC) [facility]* Diagnosis ADHD (attention deficit hyperactivity disorder), inattentive type Attention deficit disorder without mention of hyperactivity [facility]* Diagnosis Primary hypertension- Primary Unspecified essential hypertension Type 2 diabetes mellitus without complication, without long-term current use of insulin (HCC) Screening for colon cancer Special screening for malignant neoplasms, colon Type 2 diabetes mellitus with diabetic neuropathy, without long-term current use of insulin (HCC) [facility]* Diagnosis ADHD (attention deficit hyperactivity disorder), inattentive type Attention deficit disorder without mention of hyperactivity [facility]* Diagnosis Type 2 diabetes mellitus without retinopathy (HCC)- Primary Type II or unspecified type diabetes mellitus without mention of complication, not stated as uncontrolled 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 film insufficiency, unspecified Regular astigmatism of both eyes Regular astigmatism Presbyopia [facility]* Diagnosis Type 2 diabetes mellitus without complication, without long-term current use of insulin (HCC)- Primary [facility]* Diagnosis ADHD (attention deficit hyperactivity disorder), inattentive type Attention deficit disorder without mention of hyperactivity [facility]* Diagnosis Primary hypertension- Primary Unspecified essential hypertension Screening for colon cancer Special screening for malignant neoplasms, colon Type 2 diabetes mellitus without complication, without long-term current use of insulin (HCC) Attention deficit disorder, unspecified hyperactivity presence Hyperlipidemia, unspecified hyperlipidemia type Medication monitoring encounter Encounter for therapeutic drug monitoring [facility]* Diagnosis Type 2 diabetes mellitus without complication, without long-term current use of insulin (HCC) [facility]* Diagnosis Primary hypertension- Primary Unspecified essential hypertension Type 2 diabetes mellitus without complication, without long-term current use of insulin (HCC) [facility]* Diagnosis Chest pain, unspecified type- Primary Primary hypertension Unspecified essential hypertension Mild intermittent asthma without complication Unspecified asthma Type 2 diabetes mellitus without complication, without long-term current use of insulin (HCC) [facility]* Diagnosis 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)- Primary Essential hypertension Unspecified essential hypertension Mixed hyperlipidemia Type 2 diabetes mellitus without complication, without long-term current use of insulin (HCC) S/P angioplasty with stent Other postprocedural status [facility]* Diagnosis 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)- Primary Essential hypertension Unspecified essential hypertension Obesity, Class I, BMI 30-34.9 Obesity, unspecified S/P angioplasty with stent Other postprocedural status Type 2 diabetes mellitus without complication, without long-term current use of insulin (HCC) [facility]* Diagnosis Type 2 diabetes mellitus without complication, without long-term current use of insulin (HCC) [facility]* Diagnosis 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)- Primary Essential hypertension Unspecified essential hypertension Mixed hyperlipidemia [facility]* Diagnosis Type 2 diabetes mellitus without complication, without long-term current use of insulin (HCC) [facility]* Diagnosis Medication refill- Primary Issue of repeat prescriptions [facility]* Diagnosis 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)- Primary Essential hypertension Unspecified essential hypertension Mixed hyperlipidemia [facility]* Diagnosis Type 2 diabetes mellitus without complication, without long-term current use of insulin (HCC) [facility]* Diagnosis Type 2 diabetes mellitus without complication, without long-term current use of insulin (HCC)- Primary 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) Mixed hyperlipidemia Essential hypertension Unspecified essential hypertension [facility]* Diagnosis 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)- Primary Type 2 diabetes mellitus without complication, without long-term current use of insulin (HCC) Encounter for screening examination for other mental health and behavioral disorders Screening for depression Mixed hyperlipidemia Essential hypertension Unspecified essential hypertension Obesity (BMI 30-39.9) Obesity, unspecified [facility]* Diagnosis Type 2 diabetes mellitus without retinopathy (HCC)- Primary Type II or unspecified type diabetes mellitus without mention of complication, not stated as uncontrolled 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 film insufficiency, unspecified Regular astigmatism of both eyes Regular astigmatism Presbyopia [facility]* Diagnosis Bilateral hip pain- Primary Pain in joint, pelvic region and thigh Type 2 diabetes mellitus without complication, without long-term current use of insulin (HCC) Acute pain of right shoulder documented in this encounter [facility] note* Diagnosis Bilateral hip pain Pain in joint, pelvic region and thigh Acute pain of right shoulder documented in this encounter [facility] note* Diagnosis Type 2 diabetes mellitus without complication, without long-term current use of insulin (HCC) documented in this encounter [facility] note* Diagnosis Type 2 diabetes mellitus without complication, without long-term current use of insulin (HCC)- Primary documented in this encounter [facility] note* Diagnosis Acute pain of right shoulder- Primary Bilateral hip pain Pain in joint, pelvic region and thigh [facility] Hospital note* Diagnosis Acute pain of right shoulder- Primary Bilateral hip pain Pain in joint, pelvic region and thigh documented in this encounter [facility] note* Diagnosis Type 2 diabetes mellitus without complication, without long-term current use of insulin (HCC) documented in this encounter [facility] note* Diagnosis Medication refill Issue of repeat prescriptions documented in this encounter [facility] note* Diagnosis Mixed hyperlipidemia- Primary Vitamin D deficiency Unspecified vitamin D deficiency Vitamin B12 deficiency Other B-complex deficiencies Hypothyroidism, unspecified type Iron deficiency anemia, unspecified iron deficiency anemia type documented in this encounter [facility] note* Diagnosis Acute pain of right shoulder- Primary Bilateral hip pain Pain in joint, pelvic region and thigh documented in this encounter [facility] note* Diagnosis Fatigue, unspecified type- Primary documented in this encounter [facility] for referral (narrative)* Outpatient Procedure (Routine) - Pending Review Specialty Diagnoses / Procedures Referred By Lashawn devine Referred To Contact [facility] Diagnoses Chest pain, unspecified type Procedures ECG COMPLETE ECG ROUTINE ECG W/LEAST 12 LDS W/I&R Wes Gates MD [address] [place] [address] [facility] [address] [place] [id number] Referral ID Status Reason Start Date Expiration Date Visits Requested Visits Authorized [id number] Pending Review Auto-Generat ed Referral 3 04/22/2024 1 1 EN[facility] for visit Narrative* Diagnostic Procedure Only (Routine) - Closed Specialty Diagnoses / Procedures Referred By Contdonna t Referred To Contact XR IMAGING Diagnoses Acute pain of right shoulder Procedures XR SHOULDER GENERAL 3V OR MORE AP/TRUE AP/OTHER RIGHT RADEX SHOULDER COMPLETE MINIMUM 2 VIEWS Wes Gates MD [address] [place] [address] Phone: tel: fax: [place] [address] Referral ID Status Reason Start Date Expiration Date V isits Requested Visits Authorized [id number] Closed Auto-Generate d Referral 08/14/2024 09/13/2025 1 1 [facility] Summary Purpose Family History No Family History Records FoundNo Family History Records FoundNo Family History Records FoundNo Family History Records FoundNo Family History Records FoundNo Family History Records Found Advance Directives Documents on File Type Date Recorded Patient Direct Care Provider Expl anation Advance Directive(s) 01/08/2016 8:24 AM Latest Code Status on File Code Status Date Activated Date Inactivated Comments Full Code 04/27/2023 8:01 PM Question Answer Comments Full Code Order Discussed With: Patient Latest Code Status on File Code Status Date Activated Date Inactivated Comments Full Code 04/28/2023 3:28 PM 04/29/2023 5:08 PM Question Answer Comments Full Code Order Discussed With: Patient Code Status History Code Status Date Activated Date Inactivated Comments Full Code 04/27/2023 8:01 PM 04/28/2023 3:28 PM Question Answer Comments Full Code Order Discussed With: Patient Latest Code Status on File Code Status Date Activated Date Inactivated Comments Full Code 04/28/2023 3:28 PM 04/29/2023 5:08 PM Question Answer Comments Full Code Order Discussed With: Patient Code Status History Code Status Date Activated Date Inactivated Comments Full Code 04/27/2023 8:01 PM 04/28/2023 3:28 PM Question Answer Comments Full Code Order Discussed With: Patient Date Activated Date Inactivated Comments 04/28/2023 3:28 PM 04/29/2023 5:08 PM Question Answer Comments Full Code Order Discussed With: Patient Date Activated Date Inactivated Comments 04/27/2023 8:01 PM 04/28/2023 3:28 PM Question Answer Comments Full Code Order Discussed With: Patient Date Activated Date Inactivated Comments 04/28/2023 3:28 PM 04/29/2023 5:08 PM Question Answer Comments Full Code Order Discussed With: Patient Date Activated Date Inactivated Comments 04/27/2023 8:01 PM 04/28/2023 3:28 PM Question Answer Comments Full Code Order Discussed With: Patient Reason for Referral Specialty Diagnoses / Procedures Referred By Contac t Referred To Contact Optometry Diagnoses Type 2 diabetes mellitus without complication, without long-term current use of insulin (HCC) Procedures CONSULT TO OPTOMETRY OFFICE/OUTPATIENT [facility] 60-74 MINUTES Rani Perales APRN.PATIENT CASE MANAGER [address] [place] [address] Referral ID Status Reason Start Date Expiration Date Visits Requested Visits Authorized [id number] Pending Review PCP Requested Referral 06/16/2022 06/16/2023 1 1 Specialty Diagnoses / Procedures Referred By Contac t Referred To Contact General Surgery Diagnoses Screening for colon cancer Procedures CONSULT TO GENERAL SURGERY OFFICE/OUTPATIENT [facility] 60-74 MINUTES Rani Perales APRN.PATIENT CASE MANAGER [address] [place] [address] Referral ID Status Reason Start Date Expiration Date Visits Requested Visits Authorized [id number] Pending Review PCP Requested Referral 06/16/2022 06/16/2023 1 1 Specialty Diagnoses / Procedures Referred By Contac t Referred To Contact General Surgery Diagnoses Screening for colon cancer Procedures CONSULT TO GENERAL SURGERY OFFICE/OUTPATIENT [facility] 60-74 MINUTES Wes Gates MD [address] [place] [address] Referral ID Status Reason Start Date Expiration Date Visits Requested Visits Authorized [id number] Pending Review PCP Requested Referral 12/21/2022 12/21/2023 1 1 Specialty Diagnoses / Procedures Referred By Contac t Referred To Contact Diagnoses Type 2 diabetes mellitus without complication, without long-term current use of insulin (HCC) Wes Gates MD [address] [place] [address] Referral ID Status Reason Start Date Expiration Date Visits Re quested Visits Authorized [id number] Closed 1 1 Specialty Diagnoses / Procedures Referred By Contac t Referred To Contact Diagnoses Type 2 diabetes mellitus without complication, without long-term current use of insulin (HCC) [place] [address] [place] [address] Referral ID Status Reason Start Date Expiration Date V isits Requested Visits Authorized [id number] Pending Review 1 1 Specialty Diagnoses / Procedures Referred By Contac t Referred To Contact [facility] Diagnoses 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) Essential hypertension Procedures ECG COMPLETE ECG ROUTINE ECG W/LEAST 12 LDS W/I&[place] [address] [place] [address] [facility] [address] [place] [address] Referral ID Status Reason Start Date Expiration Date Visits Requested Visits Authorized [id number] Pending Review Auto-Generat ed Referral 05/11/2023 05/10/2024 1 1 Medications Administered Section Inactive Administered Medications - up to 3 most recent administrations Medication Order MAR Action Action Date Dose Rate Site fluorescein-benoxinate 0.25-0.4 % 1 Drop (FLURESS) 1 Drop, BOTH EYES, ONCE, 1 dose, On Wed09/01/22 at 1430, FOR THE EYE Given 09/01/2022 2:30 PM EDT 1 Drop PHENYLephrine 2.5 % 1 Drop (AK-DILATE, TOMÁS-SYNEPHRINE) 1 Drop, BOTH EYES, ONCE, 1 dose, On Wed09/01/22 at 1430, FOR OPHTHALMIC USE ONLY PROTECT FROM LIGHT Given 09/01/2022 2:30 PM EDT 1 Drop proparacaine 0.5 % 1 Drop (ALCAINE) 1 Drop, BOTH EYES, ONCE, 1 dose, On Wed09/01/22 at 1430, FOR THE EYE Given 09/01/2022 2:30 PM EDT 1 Drop Additional Source Comments (unrecognized sect ion and content) No Status Records FoundNo Status Records FoundNo Status Records FoundNo Status Records FoundNo Status Records FoundNo Status Records Found INFORMATION SOURCE (unrecogn ized section and content) DATE CREATED AUTHOR 11/09/2020 [facility] DATE CREATED AUTHOR 'S ORGANIZ ATION 03/10/2023 [facility] DATE CREATED AUTHOR AUTHOR'S ORGANIZ ATION 05/28/2023 [facility] DATE CREATED AUTHOR AUTHOR'S ORGANIZ ATION 07/04/2023 [facility] DATE CREATED AUTHOR AUTHOR'S ORGANIZ ATION 07/27/2024 [facility] DATE CREATED AUTHOR AUTHOR'S ORGANIZ ATION 11/20/2024 [facility] Source Comments (unrecognize d section and content) In the event this informatio n is protected by the Federal Confidentiality of Alcohol and Drug Abuse Patient Records regulations: The Federal rules restrict any use of the information to criminally investigate or prosecute any alcohol or drug abuse patient.[facility] the event this information is protected by the Federal Confidentiality of Alcohol and Drug Abuse Patient Records regulations: The Federal rules restrict any use of the information to criminally investigate or prosecute any alcohol or drug abuse patient.[facility] the event this information is protected by the Federal Confidentiality of Alcohol and Drug Abuse Patient Records regulations: The Federal rules restrict any use of the information to criminally investigate or prosecute any alcohol or drug abuse patient.[facility] the event this information is protected by the Federal Confidentiality of Alcohol and Drug Abuse Patient Records regulations: The Federal rules restrict any use of the information to criminally investigate or prosecute any alcohol or drug abuse patient.[facility] the event this information is protected by the Federal Confidentiality of Alcohol and Drug Abuse Patient Records regulations: The Federal rules restrict any use of the information to criminally investigate or prosecute any alcohol or drug abuse patient.[facility] the event this information is protected by the Federal Confidentiality of Alcohol and Drug Abuse Patient Records regulations: The Federal rules restrict any use of the information to criminally investigate or prosecute any alcohol or drug abuse patient.[facility] the event this information is protected by the Federal Confidentiality of Alcohol and Drug Abuse Patient Records regulations: The Federal rules restrict any use of the information to criminally investigate or prosecute any alcohol or drug abuse patient.[facility] the event this information is protected by the Federal Confidentiality of Alcohol and Drug Abuse Patient Records regulations: The Federal rules restrict any use of the information to criminally investigate or prosecute any alcohol or drug abuse patient.[facility] the event this information is protected by the Federal Confidentiality of Alcohol and Drug Abuse Patient Records regulations: The Federal rules restrict any use of the information to criminally investigate or prosecute any alcohol or drug abuse patient.[facility] the event this information is protected by the Federal Confidentiality of Alcohol and Drug Abuse Patient Records regulations: The Federal rules restrict any use of the information to criminally investigate or prosecute any alcohol or drug abuse patient.[facility] the event this information is protected by the Federal Confidentiality of Alcohol and Drug Abuse Patient Records regulations: The Federal rules restrict any use of the information to criminally investigate or prosecute any alcohol or drug abuse patient.[facility] the event this information is protected by the Federal Confidentiality of Alcohol and Drug Abuse Patient Records regulations: The Federal rules restrict any use of the information to criminally investigate or prosecute any alcohol or drug abuse patient.[facility] the event this information is protected by the Federal Confidentiality of Alcohol and Drug Abuse Patient Records regulations: The Federal rules restrict any use of the information to criminally investigate or prosecute any alcohol or drug abuse patient.[facility] the event this information is protected by the Federal Confidentiality of Alcohol and Drug Abuse Patient Records regulations: The Federal rules restrict any use of the information to criminally investigate or prosecute any alcohol or drug abuse patient.[facility] the event this information is protected by the Federal Confidentiality of Alcohol and Drug Abuse Patient Records regulations: The Federal rules restrict any use of the information to criminally investigate or prosecute any alcohol or drug abuse patient.[facility] the event this information is protected by the Federal Confidentiality of Alcohol and Drug Abuse Patient Records regulations: The Federal rules restrict any use of the information to criminally investigate or prosecute any alcohol or drug abuse patient.[facility] the event this information is protected by the Federal Confidentiality of Alcohol and Drug Abuse Patient Records regulations: The Federal rules restrict any use of the information to criminally investigate or prosecute any alcohol or drug abuse patient.[facility] the event this information is protected by the Federal Confidentiality of Alcohol and Drug Abuse Patient Records regulations: The Federal rules restrict any use of the information to criminally investigate or prosecute any alcohol or drug abuse patient.[facility]In the event this information is protected by the Federal Confidentiality of Alcohol and Drug Abuse Patient Records regulations: The Federal rules restrict any use of the information to criminally investigate or prosecute any alcohol or drug abuse patient.[facility]In the event this information is protected by the Federal Confidentiality of Alcohol and Drug Abuse Patient Records regulations: The Federal rules restrict any use of the information to criminally investigate or prosecute any alcohol or drug abuse patient.[facility] the event this information is protected by the Federal Confidentiality of Alcohol and Drug Abuse Patient Records regulations: The Federal rules restrict any use of the information to criminally investigate or prosecute any alcohol or drug abuse patient.[facility]In the event this information is protected by the Federal Confidentiality of Alcohol and Drug Abuse Patient Records regulations: The Federal rules restrict any use of the information to criminally investigate or prosecute any alcohol or drug abuse patient.[facility]In the event this information is protected by the Federal Confidentiality of Alcohol and Drug Abuse Patient Records regulations: The Federal rules restrict any use of the information to criminally investigate or prosecute any alcohol or drug abuse patient.[facility]In the event this information is protected by the Federal Confidentiality of Alcohol and Drug Abuse Patient Records regulations: The Federal rules restrict any use of the information to criminally investigate or prosecute any alcohol or drug abuse patient.[facility]In the event this information is protected by the Federal Confidentiality of Alcohol and Drug Abuse Patient Records regulations: The Federal rules restrict any use of the information to criminally investigate or prosecute any alcohol or drug abuse patient.[facility]In the event this information is protected by the Federal Confidentiality of Alcohol and Drug Abuse Patient Records regulations: The Federal rules restrict any use of the information to criminally investigate or prosecute any alcohol or drug abuse patient.[facility]In the event this information is protected by the Federal Confidentiality of Alcohol and Drug Abuse Patient Records regulations: The Federal rules restrict any use of the information to criminally investigate or prosecute any alcohol or drug abuse patient.[facility]In the event this information is protected by the Federal Confidentiality of Alcohol and Drug Abuse Patient Records regulations: The Federal rules restrict any use of the information to criminally investigate or prosecute any alcohol or drug abuse patient.[facility]In the event this information is protected by the Federal Confidentiality of Alcohol and Drug Abuse Patient Records regulations: The Federal rules restrict any use of the information to criminally investigate or prosecute any alcohol or drug abuse patient.[facility]In the event this information is protected by the Federal Confidentiality of Alcohol and Drug Abuse Patient Records regulations: The Federal rules restrict any use of the information to criminally investigate or prosecute any alcohol or drug abuse patient.[facility]In the event this information is protected by the Federal Confidentiality of Alcohol and Drug Abuse Patient Records regulations: The Federal rules restrict any use of the information to criminally investigate or prosecute any alcohol or drug abuse patient.[facility]In the event this information is protected by the Federal Confidentiality of Alcohol and Drug Abuse Patient Records regulations: The Federal rules restrict any use of the information to criminally investigate or prosecute any alcohol or drug abuse patient.[facility]In the event this information is protected by the Federal Confidentiality of Alcohol and Drug Abuse Patient Records regulations: The Federal rules restrict any use of the information to criminally investigate or prosecute any alcohol or drug abuse patient.[facility] the event this information is protected by the Federal Confidentiality of Alcohol and Drug Abuse Patient Records regulations: The Federal rules restrict any use of the information to criminally investigate or prosecute any alcohol or drug abuse patient.[facility]In the event this information is protected by the Federal Confidentiality of Alcohol and Drug Abuse Patient Records regulations: The Federal rules restrict any use of the information to criminally investigate or prosecute any alcohol or drug abuse patient.[facility] the event this information is protected by the Federal Confidentiality of Alcohol and Drug Abuse Patient Records regulations: The Federal rules restrict any use of the information to criminally investigate or prosecute any alcohol or drug abuse patient.[facility]In the event this information is protected by the Federal Confidentiality of Alcohol and Drug Abuse Patient Records regulations: The Federal rules restrict any use of the information to criminally investigate or prosecute any alcohol or drug abuse patient.[facility]In the event this information is protected by the Federal Confidentiality of Alcohol and Drug Abuse Patient Records regulations: The Federal rules restrict any use of the information to criminally investigate or prosecute any alcohol or drug abuse patient.[facility]In the event this information is protected by the Federal Confidentiality of Alcohol and Drug Abuse Patient Records regulations: The Federal rules restrict any use of the information to criminally investigate or prosecute any alcohol or drug abuse patient.[facility] HealthIn the event this information is protected by the Federal Confidentiality of Alcohol and Drug Abuse Patient Records regulations: The Federal rules restrict any use of the information to criminally investigate or prosecute any alcohol or drug abuse patient.[facility]In the event this information is protected by the Federal Confidentiality of Alcohol and Drug Abuse Patient Records regulations: The Federal rules restrict any use of the information to criminally investigate or prosecute any alcohol or drug abuse patient.[facility]In the event this information is protected by the Federal Confidentiality of Alcohol and Drug Abuse Patient Records regulations: The Federal rules restrict any use of the information to criminally investigate or prosecute any alcohol or drug abuse patient.[facility]In the event this information is protected by the Federal Confidentiality of Alcohol and Drug Abuse Patient Records regulations: The Federal rules restrict any use of the information to criminally investigate or prosecute any alcohol or drug abuse patient.[facility] HealthIn the event this information is protected by the Federal Confidentiality of Alcohol and Drug Abuse Patient Records regulations: The Federal rules restrict any use of the information to criminally investigate or prosecute any alcohol or drug abuse patient.[facility]In the event this information is protected by the Federal Confidentiality of Alcohol and Drug Abuse Patient Records regulations: The Federal rules restrict any use of the information to criminally investigate or prosecute any alcohol or drug abuse patient.[facility]In the event this information is protected by the Federal Confidentiality of Alcohol and Drug Abuse Patient Records regulations: The Federal rules restrict any use of the information to criminally investigate or prosecute any alcohol or drug abuse patient.[facility]In the event this information is protected by the Federal Confidentiality of Alcohol and Drug Abuse Patient Records regulations: The Federal rules restrict any use of the information to criminally investigate or prosecute any alcohol or drug abuse patient.[facility]In the event this information is protected by the Federal Confidentiality of Alcohol and Drug Abuse Patient Records regulations: The Federal rules restrict any use of the information to criminally investigate or prosecute any alcohol or drug abuse patient.[facility]In the event this information is protected by the Federal Confidentiality of Alcohol and Drug Abuse Patient Records regulations: The Federal rules restrict any use of the information to criminally investigate or prosecute any alcohol or drug abuse patient.[facility]In the event this information is protected by the Federal Confidentiality of Alcohol and Drug Abuse Patient Records regulations: The Federal rules restrict any use of the information to criminally investigate or prosecute any alcohol or drug abuse patient.[facility]In the event this information is protected by the Federal Confidentiality of Alcohol and Drug Abuse Patient Records regulations: The Federal rules restrict any use of the information to criminally investigate or prosecute any alcohol or drug abuse patient.[facility]In the event this information is protected by the Federal Confidentiality of Alcohol and Drug Abuse Patient Records regulations: The Federal rules restrict any use of the information to criminally investigate or prosecute any alcohol or drug abuse patient.[facility]In the event this information is protected by the Federal Confidentiality of Alcohol and Drug Abuse Patient Records regulations: The Federal rules restrict any use of the information to criminally investigate or prosecute any alcohol or drug abuse patient.[facility]In the event this information is protected by the Federal Confidentiality of Alcohol and Drug Abuse Patient Records regulations: The Federal rules restrict any use of the information to criminally investigate or prosecute any alcohol or drug abuse patient.[facility]In the event this information is protected by the Federal Confidentiality of Alcohol and Drug Abuse Patient Records regulations: The Federal rules restrict any use of the information to criminally investigate or prosecute any alcohol or drug abuse patient.[facility]In the event this information is protected by the Federal Confidentiality of Alcohol and Drug Abuse Patient Records regulations: The Federal rules restrict any use of the information to criminally investigate or prosecute any alcohol or drug abuse patient.[facility]In the event this information is protected by the Federal Confidentiality of Alcohol and Drug Abuse Patient Records regulations: The Federal rules restrict any use of the information to criminally investigate or prosecute any alcohol or drug abuse patient.[facility]In the event this information is protected by the Federal Confidentiality of Alcohol and Drug Abuse Patient Records regulations: The Federal rules restrict any use of the information to criminally investigate or prosecute any alcohol or drug abuse patient.[facility]In the event this information is protected by the Federal Confidentiality of Alcohol and Drug Abuse Patient Records regulations: The Federal rules restrict any use of the information to criminally investigate or prosecute any alcohol or drug abuse patient.[facility] HealthIn the event this information is protected by the Federal Confidentiality of Alcohol and Drug Abuse Patient Records regulations: The Federal rules restrict any use of the information to criminally investigate or prosecute any alcohol or drug abuse patient.[facility] HealthIn the event this information is protected by the Federal Confidentiality of Alcohol and Drug Abuse Patient Records regulations: The Federal rules restrict any use of the information to criminally investigate or prosecute any alcohol or drug abuse patient.[facility] HealthIn the event this information is protected by the Federal Confidentiality of Alcohol and Drug Abuse Patient Records regulations: The Federal rules restrict any use of the information to criminally investigate or prosecute any alcohol or drug abuse patient.[facility] HealthIn the event this information is protected by the Federal Confidentiality of Alcohol and Drug Abuse Patient Records regulations: The Federal rules restrict any use of the information to criminally investigate or prosecute any alcohol or drug abuse patient.[facility] Reason for Visit (unrecogniz ed section and content) Reason Comments PT Progress Note Specialty Diagnoses / Procedures Referred By Lashawn t Referred To Contact [facility] Diagnoses Bilateral hip pain Acute pain of right shoulder Procedures CONSULT TO PHYSICAL THERAPY PHYSICAL THERAPY EVALUATION HIGH COMPLEX 45 MINS Wes Gates MD [address] [place] [address] Phone: tel: fax: [facility] [address] [place] [address] Referral ID Status Reason Start Date Expiration Date Visits Requested Visits Authorized [id number] Authorized Auto-Generat ed Referral 06/07/2024 06/06/2025 8 8 Reason Comments Physical Therapy Reason Comments Hospital F/U Stent follow up Specialty Diagnoses / Procedures Referred By Contdonna t Referred To Contact [facility] DEPARTMENT Diagnoses All Medically Necessaru Consults/Treatments Procedures All Medically Necessaru Consults/[place] [address] Referral ID Status Reason Start Date Expiration Date Visits Requested Visits Authorized [id number] Authorized Financial Clearance Required - Self Pay Patient Cleared - Qualified HCAP/501/FA 07/20/2023 99 99 Reason Comments Transition Of Care Reason Comments Follow Up 2 month follow up Specialty Diagnoses / Procedures Referred By Lashawn devine Referred To Contact [facility] Department Diagnoses Procedures Self [facility] Referral ID Status Reason Start Date Expiration Date V isits Requested Visits Authorized [id number] Closed Financial Clearance Required - Self Pay Patient Cleared - Qualified HCAP/501/FA Patient Cleared - Qualified 100% FAS 05/22/2021 08/20/2021 99 99 Reason Comments Patient Update Reason Onset Date Comments Refill Request 02/03/2022 Reason Comments Pain Left calf pain. Downs pop playing football yesterday. Diabetes Specialty Diagnoses / Procedures Referred By Lashawn devine Referred To Contact Family Medicine / FAMILY MEDICINE Diagnoses My diabetes Procedures MYC OFFICE VISIT Self Wes Gates MD [address] [place] [address] Referral ID Status Reason Start Date Expiration Date Visits Requested Visits Authorized [id number] Authorized Patient Cleared - Qualified 100% FAS 03/10/2022 06/08/2022 99 99 Reason Comments Results Reason Comments Recheck Blood pressure check Reason Onset Date Comments Refill Request 05/13/2022 Reason Comments Appointment Reason Onset Date Comments Refill Request 06/09/2022 Reason Comments Recheck 3 month follow up Reason Comments Diabetes Blood sugar: 220A1c: 8.5 Difficulty Reading Both Eyes Reading sma ll print and computer distance Specialty Diagnoses / Procedures Referred By Contact Referred To Contact Optometry / OPHTHALMOLOGY Diagnoses Type 2 diabetes mellitus without complication, without long-term current use of insulin (HCC) Procedures CONSULT TO OPTOMETRY OFFICE/OUTPATIENT NEW HIGH MDM 60-74 MINUTES Rani Perales, MALIA.PATIENT CASE MANAGER [address] [place] [address] [address] [place] [address] Referral ID Status Reason Start Date Expiration Date Visits Requested Visits Authorized [id number] Authorized PCP Requested Referral Financial Clearance Required - Self Pay Patient Cleared - Qualified HCAP/501/FA 06/16/2022 09/14/2022 99 99 Reason Comments Follow Up Specialty Diagnoses / Procedures Referred By Lashawn devine Referred To Contact Diagnoses FA Procedures Medical Self [facility] Referral ID Status Reason Start Date Expiration Date Visits Requested Visits Authorized [id number] Authorized Patient Cleared - Qualified HCAP/501/FA 09/29/2022 12/28/2022 99 99 Reason Comments Follow Up Reason Comments prescription assistance Reason Comments Diabetes Reason Comments Hospital Admission Hospital transfer [facility] Reason Onset Date Comments Appointment 04/29/2023 Reason Onset Date Comments Transition Of Care 04/30/2023 TCM Initial H ospital Discharge 04/29/2023 Reason Onset Date Comments Transition Of Care 05/12/2023 TCM Follow Up Reason Comments CARD Follow Up 3 Month [facility] 04/27/23 PCI x3 (diagonal, pda and plv1).Pt states Dr Pollock told him to stop Imdur - has not been taking this medication. Does he need cardiac rehab? Reason Onset Date Comments Refill Request 09/08/2023 Reason Onset Date Comments Refill Request 02/06/2024 Reason Comments Cardiology Follow Up Stopped Imdur at la st visit - still fatigued, intermittent SOB while sitting. Reason Comments 6 Month Exam Reason Comments Diabetic Eye Exam Type 2 NIDDM Reason Onset Date Comments Refill Request 07/19/2024 Reason Comments Refill Request atorvastatin (LIPITO R) Reason Comments right shoulder pain Raising arm up above head is hard. bilateral hip pain Wonders if this is c ontributing numbness in toes. Numbness is mostly when sits and lays down. Feels like hips lock up. Reason Onset Date Comments Refill Request 08/28/2024 Reason Comments Medication Problem Reason Comments PT Eval Reason Onset Date Comments Refill Request 09/13/2024 Reason Comments Follow Up Lightheadedness sinc e beginning CymbaltaOccasional L Chest discomfort - same as past with Dr DunlapConcerned about BP being too lowAnd blood sugar being low recentlyOnly coffee this morningEKG TodayLOV 02/17/24 AmoryEKG 05/11/23 Cath 04/28/23Echo 04/27/23Stress 04/26/23 Care Teams (unrecognized sec tion and content) Burner Machine Operator Relationship Specialty Start Date End Date Wes Gates MD [address] [place] [address] PCP - General Family Practice 07/04/21 [facility] [address] [place] [address] Pharmacist Pharmacy 08/06/21 Burner Machine Operator Relationship Specialty Start Date End Date Wes Gates MD [address] [place] [address] PCP - General Family Practice 07/04/21 As[facility]University [facility] [address] [place] [address] Pharmacist Pharmacy 08/06/21 Burner Machine Operator Relationship Specialty Start Date End Date Wes Gates MD [address] [place] [address] PCP - General Family Practice 07/04/21 [facility]University [facility] [address] [place] [address] Pharmacist Pharmacy 08/06/21 Burner Machine Operator Relationship Specialty Start Date End Date Wes Gates MD [address] [place] [address] PCP - General Family Practice 07/04/21 [facility] [address] [place] [address] Pharmacist Pharmacy 08/06/21 Burner Machine Operator Relationship Specialty Start Date End Date Wes Gates MD [address] [place] [address] PCP - General Family Practice 07/04/21 Ashely Weiss, formerly [facility] [address] [place] [address] Pharmacist Pharmacy 08/06/21 Burner Machine Operator Relationship Specialty Start Date End Date Wes Gates MD [address] [place] [address] PCP - General Family Medicine 07/04/21 [facility] CenterAshelyUniversity [facility] [address] [facility] [place] [address] Pharmacist Pharmacy 08/06/21 Burner Machine Operator Relationship Specialty Start Date End Date Wes Gates MD [address] [place] [address] PCP - General Family Medicine 07/04/21 [facility] [address] [place] [address] Pharmacist Pharmacy 08/06/21 Burner Machine Operator Relationship Specialty Start Date End Date Wes Gates MD [address] [place] [address] PCP - General Family Medicine 07/04/21 [facility] CenterAshelyUniversity [facility] [address] [facility] [place] [address] Pharmacist Pharmacy 08/06/21 Burner Machine Operator Relationship Specialty Start Date End Date Wes Gates MD [address] [place] [address] PCP - General Family Medicine 07/04/21 PeteAshelyUniversity [facility] [address] [facility] [place] [address] Pharmacist Pharmacy 08/06/21 Burner Machine Operator Relationship Specialty Start Date End Date Wes Gates MD [address] [place] [address] PCP - General Family Medicine 07/04/21 PeteAshelyUniversity [facility] [address] [facility] [place] [address] Pharmacist Pharmacy 08/06/21 Burner Machine Operator Relationship Specialty Start Date End Date Chata Joyce DO PCP - General Internal Medicine 10/26/13 07/03/21 Wes Gates MD [address] [facility] [place] [address] PCP - General Family Medicine 07/04/21 [facility] SystemAshely amayaUniversity [facility] [address] [facility] [place] [address] Pharmacist Pharmacy 08/06/21 Burner Machine Operator Relationship Specialty Start Date End Date Wes Gates MD [address] [place] [address] PCP - General Family Medicine 07/04/21 [facility] [address] [facility] [place] [address] Pharmacist Pharmacy 08/06/21 Burner Machine Operator Relationship Specialty Start Date End Date Wes Gates MD [address] [place] [address] PCP - General Family Medicine 07/04/21 [facility]University [facility] [address] [facility] [place] [address] Pharmacist Pharmacy 08/06/21 Burner Machine Operator Relationship Specialty Start Date End Date Wes Gates MD [address] [facility] [place] [address] PCP - General Family Medicine 07/04/21 [facility] [address] [facility] [place] [address] Pharmacist Pharmacy 08/06/21 Burner Machine Operator Relationship Specialty Start Date End Date Wes Gates MD [address] [place] [address] PCP - General Family Medicine 07/04/21 Ashely Weiss, formerly [facility] [address] [facility] [place] [address] Pharmacist Pharmacy 08/06/21 Burner Machine Operator Relationship Specialty Start Date End Date Wes Gates MD [address] [facility] [place] [address] PCP - General Family Medicine 07/04/21 Ashely Weiss, formerly [facility] [address] [facility] [place] [address] Pharmacist Pharmacy 08/06/21 Burner Machine Operator Relationship Specialty Start Date End Date Wes Gates MD [address] [facility] [place] [address] PCP - General Family Medicine 07/04/21 PeteAshely amayaUniversity of [facility] [address] [facility] [place] [address] Pharmacist Pharmacy 08/06/21 Burner Machine Operator Relationship Specialty Start Date End Date Wes Gates MD [address] [facility] [place] [address] PCP - General Family Medicine 07/04/21 Ashely Weiss, formerly [facility] [address] [facility] [place] [address] Pharmacist Pharmacy 08/06/21 Burner Machine Operator Relationship Specialty Start Date End Date Wes Gates MD [address] [facility] [place] [address] PCP - General Family Medicine 07/04/21 Ashely Weiss, formerly [facility] [address] [facility] [place] [address] Pharmacist Pharmacy 08/06/21 Burner Machine Operator Relationship Specialty Start Date End Date Wes Gates MD [address] [facility] [place] [address] PCP - General Family Medicine 07/04/21 As[facility]ly WeissUniversity [facility] [address] [place] [address] Pharmacist Pharmacy 08/06/21 Burner Machine Operator Relationship Specialty Start Date End Date Wes Gates MD [address] [facility] [place] [address] PCP - General Family Medicine 07/04/21 Ashely WeissUniversity [facility] [address] [facility] [place] [address] Pharmacist Pharmacy 08/06/21 Burner Machine Operator Relationship Specialty Start Date End Date Wes Gates MD [address] [facility] [place] [address] PCP - General Family Medicine 07/04/21 Ashely WeissUniversity [facility] [address] [facility] [place] [address] Pharmacist Pharmacy 08/06/21 Burner Machine Operator Relationship Specialty Start Date End Date Wse Gates MD [address] [facility] [place] [address] PCP - General Family Medicine 07/04/21 Ashely WeissUniversity [facility] [address] [facility] [place] [address] Pharmacist Pharmacy 08/06/21 Burner Machine Operator Relationship Specialty Start Date End Date Wes Gates MD [address] [facility] [place] [address] PCP - General Family Medicine 07/04/21 As[facility]University [facility] [address] [facility] [address] Pharmacist Pharmacy 08/06/21 Kenzie Dugan, KAN [address] [place] [address] Primary Care Linoleum Printer 04/30/23 05/28/23 Burner Machine Operator Relationship Specialty Start Date End Date Wes Gates MD [address] [place] [address] PCP - General Family Medicine 07/04/21 [facility] SystemAshely amayaUniversity [facility] [address] [place] [address] Pharmacist Pharmacy 08/06/21 Kenzie Dugan, KAN [address] [place] [address] Primary Care Linoleum Printer 04/30/23 05/28/23 Burner Machine Operator Relationship Specialty Start Date End Date Wes Gates MD [address] [place] [address] PCP - General Family Medicine 07/04/21 As[facility]ly [facility]University [facility] [address] [place] [address] Pharmacist Pharmacy 08/06/21 Kenzie Dugan, KAN [address] [place] [address] Primary Care Linoleum Printer 04/30/23 05/28/23 Burner Machine Operator Relationship Specialty Start Date End Date Wes Gates MD [address] [place] [address] PCP - General Family Medicine 07/04/21 As[facility]University [facility] [address] [place] [address] Pharmacist Pharmacy 08/06/21 Kenzie Dugan, RN [address] [place] [address] Primary Care Linoleum Printer 04/30/23 05/28/23 Burner Machine Operator Relationship Specialty Start Date End Date Wes Gates MD [address] [place] [address] PCP - General Family Medicine 07/04/21 [facility] SystemAshely amayaUniversity [facility] [address] [place] [address] Pharmacist Pharmacy 08/06/21 Kenzie Dugan RN [address] [place] [address] Primary Care Linoleum Printer 04/30/23 05/28/23 Burner Machine Operator Relationship Specialty Start Date End Date Wes Gates MD [address] [place] [address] PCP - General Family Medicine 07/04/21 As[facility]ly [facility]University [facility] [address] [place] [address] Pharmacist Pharmacy 08/06/21 Burner Machine Operator Relationship Specialty Start Date End Date Wes Gates MD [address] [place] [address] PCP - General Family Medicine 07/04/21 As[facility]University [facility] [address] [place] [address] Pharmacist Pharmacy 08/06/21 Burner Machine Operator Relationship Specialty Start Date End Date Wes Gates MD [address] [place] [address] PCP - General Family Medicine 07/04/21 Burner Machine Operator Relationship Specialty Start Date End Date Wes Gates MD [address] [place] [address] PCP - General Family Medicine 07/04/21 Burner Machine Operator Relationship Specialty Start Date End Date Wes Gates MD [address] [place] [address] PCP - General Family Medicine 07/04/21 Burner Machine Operator Relationship Specialty Start Date End Date Wes Gates MD [address] [place] [address] PCP - General Family Medicine 07/04/21 Burner Machine Operator Relationship Specialty Start Date End Date Wes Gates MD [address] [place] [address] PCP - General Family Medicine 07/04/21 Burner Machine Operator Relationship Specialty Start Date End Date Wes Gates MD [address] [place] [address] PCP - General Family Medicine 07/04/21 Rani Perales APRN.PATIENT CASE MANAGER [address] [place] [address] Birth Certificate Clerk Family Medicine 05/15/24 Beatriz Matos APRN.PATIENT CASE MANAGER [address] [place] [address] Birth Certificate Clerk Family Medicine 05/15/24 Burner Machine Operator Relationship Specialty Start Date End Date Wes Gaets MD [address] [place] [address] PCP - General Family Medicine 07/04/21 Rani Perales APRN.PATIENT CASE MANAGER [address] [place] [address] Birth Certificate Clerk Family Medicine 05/15/24 Beatriz Matos APRN.PATIENT CASE MANAGER [address] [facility] [place] [address] Birth Certificate [facility] 05/15/24 Burner Machine Operator Relationship Specialty Start Date End Date Wes Gates MD [address] [place] [address] PCP - General Family Medicine 07/04/21 Rani Perales APRN.PATIENT CASE MANAGER [address] [place] [address] Birth Certificate [facility] 05/15/24 Beatriz Matos TALCER.PATIENT CASE MANAGER [address] [place] [address] Birth Certificate [facility] 05/15/24 Burner Machine Operator Relationship Specialty Start Date End Date Wes Gates MD [address] [facility] [place] [address] PCP - General Family Medicine 07/04/21 Rani Perales TALCER.PATIENT CASE MANAGER [address] [facility] [place] [address] [facility] 05/15/24 Beatriz Matos TALCER.PATIENT CASE MANAGER [address] [place] [address] Birth Certificate [facility] 05/15/24 Burner Machine Operator Relationship Specialty Start Date End Date Wes Gates MD [address] [place] [address] PCP - General Family Medicine 07/04/21 Rani Perales TALCER.PATIENT CASE MANAGER [address] [place] [address] Birth Certificate Clerk Family Medicine 05/15/24 Beatriz Matos TALCER.PATIENT CASE MANAGER [address] [place] [address] Birth Certificate Clerk Family [facility] 05/15/24 Burner Machine Operator Relationship Specialty Start Date End Date Wes Gates MD [address] [place] [address] PCP - General Family Medicine 07/04/21 Rani Perales TALCER.PATIENT CASE MANAGER [address] [place] [address] Birth Certificate Clerk Family Medicine 05/15/24 Beatriz Matos TALCER.PATIENT CASE MANAGER [address] [place] [address] [facility] 05/15/24 Burner Machine Operator Relationship Specialty Start Date End Date Wes Gatse MD [address] [place] [address] PCP - General Family Medicine 07/04/21 Rani Perales TALCER.PATIENT CASE MANAGER [address] [place] [address] [facility] Family Medicine 05/15/24 Beatriz Matos TALCER.PATIENT CASE MANAGER [address] [place] [address] [facility] Medicine 05/15/24 Burner Machine Operator Relationship Specialty Start Date End Date Wes Gates MD [address] [facility] [place] [address] PCP - General Family Medicine 07/04/21 Rani Perales APRN.PATIENT CASE MANAGER [address] [place] [address] Birth Certificate Clerk Family Medicine 05/15/24 Beatriz Matos APRN.PATIENT CASE MANAGER [address] [facility] [place] [address] Birth Certificate Clerk Family Medicine 05/15/24 Burner Machine Operator Relationship Specialty Start Date End Date Wes Gates MD [address] [facility] [place] [address] PCP - General Family Medicine 07/04/21 Rani Perales TALCER.PATIENT CASE MANAGER [address] [facility] [place] [address] Birth Certificate Clerk Family Medicine 05/15/24 Beatriz Matos TALCER.PATIENT CASE MANAGER [address] [facility] [place] [address] Birth Certificate Clerk Family Medicine 05/15/24 Burner Machine Operator Relationship Specialty Start Date End Date Wes Gates MD [address] [place] [address] PCP - General Family Medicine 07/04/21 Rani Perales APRN.PATIENT CASE MANAGER [address] [place] [address] Birth Certificate Clerk Family Medicine 05/15/24 Beatriz Matos APRN.PATIENT CASE MANAGER [address] [place] [address] Birth Certificate Clerk Family Medicine 05/15/24 Burner Machine Operator Relationship Specialty Start Date End Date Wes Gates MD [address] [place] [address] PCP - General Family Medicine 07/04/21 Rani Perales APRN.PATIENT CASE MANAGER [address] [place] [address] Birth Certificate Clerk Family Medicine 05/15/24 Beatriz Matos APRN.PATIENT CASE MANAGER [address] [place] [address] [facility] 05/15/24 Burner Machine Operator Relationship Specialty Start Date End Date Wes Gates MD [address] [place] [address] PCP - General Family Medicine 07/04/21 Rani Perales TALCER.PATIENT CASE MANAGER [address] [place] [address] Birth Certificate Clerk Family Medicine 05/15/24 Beatriz Matos TALCER.PATIENT CASE MANAGER [address] [place] [address] Birth Certificate Clerk Family Medicine 05/15/24 Burner Machine Operator Relationship Specialty Start Date End Date Wes Gates MD [address] [place] [address] PCP - General Family Medicine 07/04/21 Rani Perales TALCER.PATIENT CASE MANAGER [address] [place] [address] Birth Certificate Clerk Family Medicine 05/15/24 Beatriz Matos TALCER.PATIENT CASE MANAGER [address] [facility] [address] [facility] 05/15/24 Burner Machine Operator Relationship Specialty Start Date End Date Wes Gates MD [address] [facility] [place] [address] [phone] PCP - General Family Medicine 07/04/21 Rani Perales APRN.PATIENT CASE MANAGER [address] [facility] [place] [address] [facility] 05/15/24 Beatriz Matos TALCER.PATIENT CASE MANAGER [address] [facility] [place] [address] [facility] 05/15/24 Burner Machine Operator Relationship Specialty Start Date End Date Wes Gates MD [address] [facility] [place] [address] PCP - General Family Medicine 07/04/21 Rani Perales, TALCER.PATIENT CASE MANAGER [address] [facility] [place] [address] [facility] Medicine 05/15/24 Beatriz Matos TALCER.PATIENT CASE MANAGER [address] [place] [address] [facility] Medicine 05/15/24 Burner Machine Operator Relationship Specialty Start Date End Date Wes Gates MD [address] [facility] [address] [phone] PCP - General Family Medicine 07/04/21 Rani Perales APRN.PATIENT CASE MANAGER [address] [place], [place] [address] [facility] 05/15/24 Beatriz Matos APRN.PATIENT CASE MANAGER [address] [place], [place] [address] [facility] 05/15/24 Burner Machine Operator Relationship Specialty Start Date End Date Wes Gates MD [address] [place], [place] [id number] PCP - [facility] 07/04/21 Rani Perales APRN.PATIENT CASE MANAGER [address] [place], [place] [id number] [facility] 05/15/24 Beatriz Matos APRN.PATIENT CASE MANAGER [address] [place], [place] [id number] [facility] 05/15/24 FOR RECORDS PERTAINING TO PATIENTS WHO ARE OR HAVE BEEN ENROLLED IN A CHEMICAL DEPENDENCY/SUBSTANCEABUSE PROGRAM, SOME INFORMATION MAY BE OMITTED. This clinical summary was aggregated from multiple sources. Caution should be exercised in using it in the provision of clinical care. This summary normalizes information from multiple sources, and as a consequence, information in this document may materially change the coding, format and clinical context of patient data. In addition, data may be omitted in some cases. CLINICAL DECISIONS SHOULD BE BASED ON THE PRIMARY CLINICAL RECORDS. [facility] [employer] provides no warranty or guarantee of the accuracy or completeness of information in this document.
[2024-12-17 20:06] LABS: Hematocrit 44.3 % (40-54); Hemoglobin 14.7 g/dL (13.0-16.5); Immature Granulocytes Count 0.020 X10^3/uL (0.0-0.0); Mean Corp Hgb Conc 33.2 g/dL (32-36); Mean Corpuscular Volume 87.2 fL (80-94); Mean Platelet Vol. 9.4 fl (6.2-12.0); NRBC Flagged by Analyzer 0 % (0-5); Platelet Count 189 K/mm3 (150-450); RBC Distribution Width CV 13.9 % (11.6-14.6); RBC Distribution Width SD 45.0 fl (35.1-43.9); Red Blood Count 5.08 M/mm3 (4.6-6.2); White Blood Count 6.2 K/mm3 (4.4-11.0)
[2024-12-17 20:44] LABS: Anion Gap 12 (5-15); BUN 23 mg/dL (4-19); BUN/Creat Ratio 23.2 RATIO (10-20); Calcium,Total 9.0 mg/dL (7.6-11.0); Carbon Dioxide 21.0 mmol/L (21.0-32.0); Chloride 108 mmol/L (98-108); Estimated Creatinine Clearance 114.54 ml/min (50-250); Glucose 75 mg/dL (70-99); Potassium 4.0 mmol/L (3.3-5.1)
[2024-12-17 20:47] LABS: Troponin T High Sensitivity < 6 ng/L (<=22)
[2024-12-17 22:20] LABS: Troponin T High Sens 2 HR < 6 ng/L (<=22)
== END 2024-12-17 23:20 | disposition home or self-care (01) ==
PROVIDERS: Emergency Provider Emergency Medicine; PCP Family Medicine; Visit Provider Emergency Medicine
DX: T67.5XXA Heat exhaustion, unspecified, initial encounter (principal); E11.9 Type 2 diabetes mellitus without complications; X30.XXXA Exposure to excessive natural heat, initial encounter; R11.2 Nausea with vomiting, unspecified; I10 Essential (primary) hypertension; F98.8 Other specified behavioral and emotional disorders with onset usually occurring in childhood and adolescence; Z95.5 Presence of coronary angioplasty implant and graft; Z79.82 Long term (current) use of aspirin; Z79.84 Long term (current) use of oral hypoglycemic drugs; Z79.899 Other long term (current) drug therapy
CPT/HCPCS: 80048; 84484; 85025; 93005; 96361; 96374; 99285; A4216; J2405

== ENCOUNTER 2025-01-08 22:20 | Emergency (ER) | payer MEDICAID, SELFPAY ==
[2025-01-08 22:21] VITALS: BP 144/131; PULSE 75; RESP 20; TEMP 36.4; O2SAT 97
--- NOTE | 2025-01-08 23:00 | CT_ITS ---
PROCEDURE: ABDOMEN/PELVIS WITHOUT CONT 01/08/2025 REASON FOR EXAM: LEFT FLANK PAIN TECHNIQUE: ABDOMEN/PELVIS WITHOUT CONT Noncontrast technique limits evaluation of the abdominal and pelvic viscera. Coronal and Sagittal reconstruction series were provided. One or more dose reduction techniques were used (e.g., Automated exposure control, adjustment of the mA and/or kV according to patient size, use of iterative reconstruction technique). RADIATION DOSE SUMMARY: CTDlvol: 21 mGy DLP: 1122 mGycm COMPARISON: No FINDINGS: Clear lung bases. Normal heart size. Unremarkable liver, gallbladder, pancreas, spleen, left adrenal gland. 1 cm right adrenal nodule favoring benign at adenoma. No renal calcifications. There is mild left-sided hydronephrosis. There is a 1.5 mm UVJ stone. Normal bladder. Normal prostate. No retroperitoneal or pelvic adenopathy. No free air. Nondistended bowel. Normal appendix. No acute large bowel findings. Lumbar spine degeneration. Status post ventral hernia repair. No acute abdominal wall findings. CT/Abdomen/Pelvis without Cont IMPRESSION: Mild left-sided hydronephrosis, 1.5 mm left UVJ stone. Reading Location: [place] [address]
--- NOTE | 2025-01-08 23:02 | EDS_ITS ---
HPI History of Present Illness Chief Complaint: Abd Pain Informant: patient and spouse/S.O. Narrative Narrative: Patient is a 54-year-old male with past medical history of hypertension and [id number] type 2 diabetes. He reports that he was getting ready for bed this evening roughly 1 hour prior to arrival when he developed sudden onset sharp left sided abdominal discomfort. He states it caused the bouts of nausea and vomiting. He denies any trauma or excessive physical activity prior to the pain beginning. He denies any known sick contacts or fevers or chills. However the pain has been intense for the last hour without symptom improvement with time or tzwu-fmj-foeuwnn medication and therefore he presents to the hospital for evaluation. [facility] Medical History (Updated 01/09/25 @ 01:[address] Kendrick Briceno, ) Diabetes mellitus, type II ADD (attention deficit disorder) HTN (hypertension) Home Medications ?Medication ?Instructions ?Recorded ?Last Taken ?Type dextroamphetamine-amphetamine 30 30 mg PO DAILY 01/23/14 History mg tablet (Adderall) aspirin 81 mg tablet,delayed 81 mg PO DAILY ##30 01/1101/23/14 Rx release (Ecotrin Low Strength) metformin 500 mg tablet 500 mg PO DAILYCM ##30 01/11 Unknown Rx cholecalciferol (vitamin D3) 50 2,000 unit PO DAILY Unknown History mcg (2,000 unit) tablet (Vitamin D3) losartan 25 mg tablet 25 mg PO DAILY 01/23/14 08/12/19 07:15 History multivitamin with folic acid 400 1 tab PO DAILY Unknown History mcg tablet (Thera) cephalexin 500 mg capsule 500 mg PO BID 7 days #14 cap s 01/09/25 Unknown Rx ketorolac 10 mg tablet 10 mg PO Q6H PRN pain 5 days #20 01/09/25 Unknown Rx tabs ondansetron 4 mg disintegrating 4 mg PO TID PRN nausea and 01/09/25 Unknown Rx tablet vomiting #21 tabs oxycodone-acetaminophen 5 mg-325 1 tab PO Q6H PRN pain 5 days #20 01/09/25 Unknown Rx mg tablet (Percocet) tabs tamsulosin 0.4 mg capsule (Flomax) 0.4 mg PO DAILY 14 days #14 caps 01/09/25 Unknown Rx Allergy/AdvReac Type Severity Reaction Status Date / Time lisinopril Allergy Angioedema Verified 12/17/24 19:19 Surgical History (Updated 12/17/24 @ 19:16 by Lourdes Ames) Hx of heart artery stent Social History Smoking Status: Never smoker ROS ROS ED Constitutional Constitutional ED: Denies chills or fever(s) ENT ENT ED: Denies sore throat Cardiovascular Cardiovascular: Denies chest pain Respiratory/Chest Respiratory/Chest: Denies cough or dyspnea Gastrointestinal Gastrointestinal: Reports abdominal pain, nausea and vomiting; Denies diarrhea Genitourinary Genitourinary ED: Denies dysuria or hematuria Musculoskeletal Musculoskeletal: Reports back pain Integumentary Denies rash Neurologic Neurologic: Denies headache(s) Hematologic/Lymphatic Hematologic/Lymphatic: Denies easy bleeding or easy bruising EXAM Physical Exam
--- NOTE | 2025-01-08 23:02 | EX.ED.DYSGE1 ---
HPI History of Present Illness Chief Complaint: Abd Pain Informant: patient and spouse/S.O. Narrative Narrative: Patient is a 54-year-old male with past medical history of hypertension and [id number] type 2 diabetes. He reports that he was getting ready for bed this evening roughly 1 hour prior to arrival when he developed sudden onset sharp left sided abdominal discomfort. He states it caused the bouts of nausea and vomiting. He denies any trauma or excessive physical activity prior to the pain beginning. He denies any known sick contacts or fevers or chills. However the pain has been intense for the last hour without symptom improvement with time or regm-aco-psyewvs medication and therefore he presents to the hospital for evaluation. [facility] Medical History (Updated 01/09/25 @ 01:[address] Kendrick Briceno, ) Diabetes mellitus, type II ADD (attention deficit disorder) HTN (hypertension) Home Medications ?Medication ?Instructions ?Recorded ?Last Taken ?Type dextroamphetamine-amphetamine 30 30 mg PO DAILY 01/09/14 01/23/14 History mg tablet (Adderall) aspirin 81 mg tablet,delayed 81 mg PO DAILY ##30 01/11/14 01/23/14 Rx release (Ecotrin Low Strength) metformin 500 mg tablet 500 mg PO DAILYCM ##30 01/11/14 Unknown Rx cholecalciferol (vitamin D3) 50 2,000 unit PO DAILY 01/23/14 Unknown History mcg (2,000 unit) tablet (Vitamin D3) losartan 25 mg tablet 25 mg PO DAILY 01/23/14 01/31/15 07:15 History multivitamin with folic acid 400 1 tab PO DAILY 01/23/14 Unknown History mcg tablet (Thera) cephalexin 500 mg capsule 500 mg PO BID 7 days #14 caps 01/09/25 Unknown Rx ketorolac 10 mg tablet 10 mg PO Q6H PRN pain 5 days #20 01/09/25 Unknown Rx tabs ondansetron 4 mg disintegrating 4 mg PO TID PRN nausea and 01/09/25 Unknown Rx tablet vomiting #21 tabs oxycodone-acetaminophen 5 mg-325 1 tab PO Q6H PRN pain 5 days #20 01/09/25 Unknown Rx mg tablet (Percocet) tabs tamsulosin 0.4 mg capsule (Flomax) 0.4 mg PO DAILY 14 days #14 caps 01/09/25 Unknown Rx Allergy/AdvReac Type Severity Reaction Status Date / Time lisinopril Allergy Angioedema Verified 12/17/24 19:19 Surgical History (Updated 12/17/24 @ 19:16 by Lourdes Ames) Hx of heart artery stent Social History Smoking Status: Never smoker ROS ROS ED Constitutional Constitutional ED: Denies chills or fever(s) ENT ENT ED: Denies sore throat Cardiovascular Cardiovascular: Denies chest pain Respiratory/Chest Respiratory/Chest: Denies cough or dyspnea Gastrointestinal Gastrointestinal: Reports abdominal pain, nausea and vomiting; Denies diarrhea Genitourinary Genitourinary ED: Denies dysuria or hematuria Musculoskeletal Musculoskeletal: Reports back pain Integumentary Denies rash Neurologic Neurologic: Denies headache(s) Hematologic/Lymphatic Hematologic/Lymphatic: Denies easy bleeding or easy bruising EXAM Physical Exam Const Vital Signs: 01/08/25 22:21 01/09/25 00:35 Temperature 97.6 F L 98 F Temperature Source Temporal Pulse Rate 75 62 Respiratory Rate 20 H 14 Blood Pressure 144/131 H 142/94 H Blood Pressure Mean 135 110 Pulse Ox 97 97 Oxygen Delivery Method Room Air Positive well nourished and well developed General Appearance ED: well developed; Negative for pallor HEENT HEENT Narrative: Normocephalic atraumatic Eyes PERRL and EOMs intact bilaterally General Eye ED: Negative for scleral icterus Neck supple Resp normal respiratory effort and clear to auscultation bilaterally Cardio regular rate and regular rhythm Rate: other Other Details: Radial and carotid pulses are equal and symmetric GI non-distended and no masses GI Narrative: Abdomen is soft and nondistended with normal active bowel sounds. There is reproducible left-sided lower abdominal discomfort with palpation. No voluntary guarding or rigidity. No pulsatile mass or fluid wave Auscultation: normoactive bowel sounds Palpation: soft Back/Spine Back/Spine Narrative: Positive left CVA pain noted Extremity normal to inspection Neuro oriented x3, CN's II-XII intact bilaterally and no sensory deficits noted Sensorium / Orientation: alert Motor Exam: strength 5/5 throughout Psych mental status grossly normal Skin no rashes or lesions noted and no wounds Skin Narrative: No overlying soft tissue changes to suggest trauma or infection General Skin Exam: Negative for jaundice or pallor MDM MDM MDM Narrative Medical decision making narrative: Patient presented to the ER hypertensive but has a past medical history of this. He reported sudden onset left-sided abdominal pain without recent trauma or increased physical activity. He has bouts of vomiting and nausea did not start until after the pain began. Differential diagnosis is for UTI versus pyelonephritis versus kidney stone versus diverticulitis. As his history and exam is most consistent with kidney stone I did elect to perform basic laboratory studies with noncontrast CT scan. Lab revealed no sign of urosepsis or acute kidney injury. CT scan confirmed a 1.5 mm stone in the UVJ. The patient does not have SHAWNA or urosepsis and after receiving Toradol morphine he had resolution of his pain. Therefore there is no need for emergent urology consultation or admission. Patient will be kept on symptomatic medications and can follow-up with urology as an outpatient. History & Record Review Discussion w/independent historian: Patient and Significant other Lab Data Attestation: I reviewed the patient's lab results. Labs: Laboratory Results - last 24 hr 01/08/25 01/09/25 22:30 00:15 WBC 6.3 RBC 5.05 Hgb 14.6 Hct 43.8 MCV 86.7 MCH 28.9 MCHC 33.3 RDW Std Deviation 44.7 H RDW Coeff of Jung 14.0 Plt Count 203 MPV 9.5 Immature Gran % (Auto) 0.300 Neut % (Auto) 59.1 Lymph % (Auto) 29.4 Granite % (Auto) 9.0 Eos % (Auto) 1.7 Baso % (Auto) 0.5 Absolute Neuts (auto) 3.7 Absolute Lymphs (auto) 1.86 Nucleated RBC % 0 Sodium 143 Potassium 4.3 Chloride 109 H Carbon Dioxide 20.9 L Anion Gap 13 BUN 16 Creatinine 1.29 H Est GFR (MDRD) Non-Af 67 BUN/Creatinine Ratio 12.1 Glucose 176 H Calcium 8.6 Urine Color Yellow Urine Clarity Clear Urine pH 6.0 Ur Specific [place] 1.020 Urine Protein Negative Urine Glucose (UA) 1000 H Urine Ketones Negative Urine Occult Blood 50 H Urine Nitrite Negative Urine Bilirubin Negative Urine Urobilinogen Normal Ur Leukocyte Esterase Negative Urine RBC 5-10 SEEN Urine WBC 0 SEEN Ur Squamous Epith Cells 0-5 SEEN Urine Bacteria 1+ Urine Mucus 0 SEEN Radiography Diagnostic Testing: Clinical Impression(s) from Imaging Studies Abdomen/Pelvis CT 01/08/25 23:00 IMPRESSION: Mild left-sided hydronephrosis, 1.5 mm left UVJ stone. Reading Location: [place] [address] Discharge Plan Triage Chief Complaint: Abd Pain ED Provider: Kendrick Briceno Dx/Rx/DC Orders Clinical Impression: Kidney stone on left side, Renal colic, DM (diabetes mellitus), type 2, HTN (hypertension) Instructions: ED Kidney Stone with Pain Prescriptions: New oxycodone-acetaminophen [Percocet] 5-325 mg tablet 1 tab PO Q6H PRN (Reason: pain) 5 Days Qty: 20 0RF ketorolac 10 mg tablet 10 mg PO Q6H PRN (Reason: pain) 5 Days Qty: 20 0RF ondansetron 4 mg tablet,disintegrating 4 mg PO TID PRN (Reason: nausea and vomiting) Qty: 21 0RF tamsulosin [Flomax] 0.4 mg capsule 0.4 mg PO DAILY 14 Days Qty: 14 0RF cephalexin 500 mg capsule 500 mg PO BID 7 Days Qty: 14 0RF No Action dextroamphetamine-amphetamine [Adderall] 30 MG tablet 30 mg PO DAILY Patient Comments: ADHD metformin 500 MG tablet 500 mg PO DAILYCM Qty: 30 0RF Patient Comments: Diabetes aspirin [Ecotrin Low Strength] 81 MG tablet,delayed release (DR/EC) 81 mg PO DAILY Qty: 30 0RF Patient Comments: Blood thinner for heart health losartan 25 MG tablet 25 mg PO DAILY cholecalciferol (vitamin D3) [Vitamin D3] 2,000 UNIT tablet 2,000 unit PO DAILY multivitamin with folic acid [Thera] 1 TABLET tablet 1 tab PO DAILY Primary Care Provider: Wes Mcduffie Referrals: Sandip Lopez MD [Med Staff - Active Staff] - Wes Mcduffie MD [Primary Care Provider] - Activity Restrictions/Additional Instructions: Please keep yourself well-hydrated and stay active to help pass your kidney stone. If you develop a fever of 100.4 or higher or have intractable pain despite taking your medications or any further concerns please return to the ER for repeat evaluation Print Language: Greek Disposition Disposition: Home, Self Care Discharge Date/Time: 01/09/25 00:36
[2025-01-08] MEDS: 0.9% Normal Saline (1000mL) 1,000 ML 999 ML IV (23:14)
[2025-01-08] MEDS: Ketorolac 30 MG/ML Syringe IV (23:14)
[2025-01-08 23:22] LABS: Hematocrit 43.8 % (40-54); Hemoglobin 14.6 g/dL (13.0-16.5); Immature Granulocytes Count 0.020 X10^3/uL (0.0-0.0); Mean Corp Hgb Conc 33.3 g/dL (32-36); Mean Corpuscular Volume 86.7 fL (80-94); Mean Platelet Vol. 9.5 fl (6.2-12.0); NRBC Flagged by Analyzer 0 % (0-5); Platelet Count 203 K/mm3 (150-450); RBC Distribution Width CV 14.0 % (11.6-14.6); RBC Distribution Width SD 44.7 fl (35.1-43.9); Red Blood Count 5.05 M/mm3 (4.6-6.2); White Blood Count 6.3 K/mm3 (4.4-11.0)
--- OUTSIDE RECORDS SUMMARY | 2025-01-08 23:25 | XMS RPT_ITS | CCD ---
Author Organization [facility] Care Team Providers Care Electrical Electronics Technician Name Role Phone Wes Gates MD Primary Care Provider [facility], [place] Unavailable Chata Joyce DO Primary Care Provider [phone] Wes Gates MD Primary Care Provider [facility], [place] Unavailable FABIANA LUCAS Referring Unavailable ZAHIRA VELIZ Attending Unavailable ZAHIRA VELIZ Admitting Unavailable WES GATES Primary Care Unavailable [facility], [place] Unavailable Aditya Henriquez RN, Kenzie Unavailable HAILE POLLOCK Consulting Unavailable ACOSTA LORA Admitting Unavailable JOVANNA DUNLAP Referring Unavailabl KRISH Bowers Attending Unavailable WES GATES Primary Care Unavailable Wes Gates MD Primary Care Provider Haagen HYDRAULIC GOVERNOR ASSEMBLER.WHEAT SHIPPER Rani Unavailable Suppan HYDRAULIC GOVERNOR ASSEMBLER.WHEAT SHIPPER, Beatriz A Unavailable [phone] Suppan HYDRAULIC GOVERNOR ASSEMBLER.WHEAT SHIPPER, Beatriz A Unavailable [phone] Suppan HYDRAULIC GOVERNOR ASSEMBLER.GRACE, Beatriz A Unavailable [phone] Dr. Vadim Ng DO Emergency Provider Dr. Wes Gates MD Primary Care Provider [phone] WES GATES Referring Unavailable WES GATES Primary Care Unavailable DEVAUGHN CHEN Attending Unavailable WES GATES Primary Care Unavailable WES GATES Referring Unavailable WES GATES Primary Care Unavailable WES GATES Attending Unavailable WES GATES Primary Care Unavailable JOVANNA DUNLAP Attending Unavailabl e YAJAIRA, WSE Barron Primary Care Unavailable YAJAIRA, WES Barron Referring Unavailable YAJAIRA, WES Barron Attending Unavailable SELF Referring Unavailable YAJAIRA, WES Barron Primary Care Unavailable YAJAIRA, WES Barron Attending Unavailable YAJAIRA, WES Barron Primary Care Unavailable YAJAIRA, WES Barron Referring Unavailable YAJAIRA, WES Barron Primary Care Unavailable JACOB MAYS Attending Unavailable YAJAIRA, WES Barron Primary Care Unavailable YAJAIRA, WES Barron Primary Care Unavailable PREETHI CAUSEY Attending Unavailable DEVAUGHN CHEN Attending Unavailable YAJAIRA, WES Barron Primary Care Unavailable YAJAIRA, WES Barron Referring Unavailable DEVAUGHN CHEN Attending Unavailable YAJAIRA, WES Barron Referring Unavailable YAJAIRA, WES Barron Primary Care Unavailable DEVAUGHN CHEN Attending Unavailable YAJAIRA, WES Barron Referring Unavailable YAJAIRA, WES Barron Primary Care Unavailable BEST, DEVAUGHN Attending Unavailable YAJAIRA, WES Barron Referring Unavailable YAJAIRA, WES Barron Primary Care Unavailable DEVAUGHN CHEN Attending Unavailable YAJAIRA, WES Barron Referring Unavailable YAJAIRA, WES Barron Primary Care Unavailable [place], Wes Primary Care Unavailable Vadim Ng Attending Unavailable PROVIDER, UNKNOWN Referring Unavailable PROVIDER, UNKNOWN Primary Care Unavailable PROVIDER, UNKNOWN Referring Unavailable PROVIDER, UNKNOWN Primary Care Unavailable Allergies Allergy Classification Reported Allergen(s) Allergy Type Date of Onset Reaction(s) Facility (20 sources) amLODIPine; Translations: [AMLODIPINE] Drug Allergy 3 Other: See Comments [facility] Work Phone: (1 source) Lisinopril Drug Allergy 5 Angioedema [facility] (1 source) Lisinopril Drug Allergy 5 [facility] Repository Medications Current Medications Medication Drug Class(es) Dates Sig (Normalized) Sig (Original) aspirin 81 mg chewable tablet (20 sources) Platelet Aggregation Inhibitor, Nonsteroidal Anti-inflammatory Drug Start: 04-29-2023 End: 07-28-2023 take 1 tablet by mouth once daily aspirin 81 mg chewable tablet Take 1 tablet by mouth once daily. 30 tablet 2 04/29/2023 Active Start: 01-11-2014 End: 03-16-2022 take 1 tablet by mouth once daily Aspirin (Ecotrin Low Strength) 81 MG tablet,delayed release (DR/EC) Active 81 mg PO DAILY 30 0 January 11, 2014 12:00am Comment on above: Take 81 mg by mouth once daily. Take 1 tablet by luis th once daily. atorvastatin 80 mg oral tablet (20 sources) HMG-CoA Reductase Inhibitor Start: End: take 1 tablet by [...] complication, without long-term current use of insulin ([facility]) Take 1 tablet by mouth daily at bedtime. For cholesterol. 90 tablet 3 03/18/2022 Suspended Start: 08-06-2021 End: 03-16-2022 take 1 tablet by mouth once daily at bedtime for hyperlipidemia atorvastatin (LIPITOR) 20 mg tablet Indications: Mixed hyperlipidemia , Type 2 diabetes mellitus without complication, without long-term current use of insulin ([facility]) Take 1 tablet by mouth daily at bedtime. For cholesterol. 90 tablet 1 08/06/2021 03/16/2022 Discontinued Comment on above: Take 1 tablet by luis th daily at bedtime. For cholesterol. Take 1 tablet by luis th daily at bedtime. Blood-Glucose Meter monitoring kit (1 source) Start: 2023 End: 2023 Blood-Glucose Meter monitoring kit Indications: Type 2 diabetes mellitus without complication, without long-term current use of insulin ([facility]) Glucose Meter of Choice - Kit - Dx: Type 2 DM - Uncontrolled E11.65 1 Each 02/25/2024 02/26/2024 Active cholecalciferol 0.05 mg oral tablet (1 source) Vitamin D Start: 2013 Cholecalciferol (Vitamin D3) (Vitamin D) 2,000 UNIT tablet Active 2000 U PO DAILY January 23, 2014 12:00am clopidogrel 75 mg oral tablet (20 sources) P2Y12 Platelet Inhibitor Start: 2022 End: 2025 take 1 tablet by mouth once daily clopidogrel (PLAVIX) 75 mg tablet Indications: Medication refill Take 1 tablet by mouth once daily. 90 tablet 3 09/13/2024 09/13/2025 Active Comment on above: Take 1 tablet by luis th once daily. dulaglutide (TRULICITY) 3 mg/0.5 mL pen injector (17 sources) Start: 2024 End: 2025 inject 3 mg by subcutaneous injection every week dulaglutide (TRULICITY) 3 mg/0.5 mL pen injector Indications: Type 2 diabetes mellitus without complication, without long-term current use of insulin (HCC) Inject 3 mg subcutaneously one time a week. 2 mL 11 08/28/2024 08/28/2025 Active DULoxetine 30 mg delayed release oral capsule (11 sources) Serotonin and Norepinephrine Reuptake Inhibitor Start: 2024 End: 2024 take 1 capsule by mouth once daily DULoxetine DR (CYMBALTA) 30 mg capsule Take 1 capsule by mouth once daily. 90 capsule 1 01/03/2025 04/03/2025 Active empagliflozin 10 mg oral tablet (6 sources) Sodium-Glucose Cotransporter 2 Inhibitor take 1 tablet by mouth once daily at breakfast empagliflozin (JARDIANCE) 10 mg tablet Take 10 mg by mouth daily with breakfast. Active famotidine 20 mg oral tablet (11 sources) Histamine-2 Receptor Antagonist Start: 2023 End: 2023 take 1 tablet by mouth once daily [...] 1 tablet by luis th once daily. 24 hr isosorbide mononitrate 30 mg extended [...] (13 sources) Nonsteroidal Anti-inflammatory Drug Start: 08-15-19 End: 11-13-19 take 1 tablet by mouth once daily meloxicam (MOBIC) 15 mg tablet Indications: Bilateral hip pain , Acute pain of right shoulder Take 1 tablet by mouth once daily. 30 tablet 08/14/2024 11/12/2024 Active Multivitamin With Folic Acid (Thera) 1 TABLET tablet (1 source) Start: 01-24-20 take 1 tablet by mouth once daily Multivitamin With Folic Acid (Thera) 1 TABLET tablet Active 1 {tbl} PO DAILY January 23, 2014 12:00am pioglitazone 30 mg oral tablet (20 sources) Peroxisome Proliferator Receptor alpha Agonist, Peroxisome Proliferator Receptor gamma Agonist, Thiazolidinedione Start: 07-29-19 End: 08-15-19 take 1 tablet by mouth once daily [...] 1 tablet by luis th once daily. semaglutide (OZEMPIC) 0.25 mg [...] 120 tablet 0 11/03/2022 12/03/2022 Active Start: 06-09-2022 End: 10-04-2022 take 2 tablets [...] days. 60 tablet 0 02/02/2022 06/09/2022 Discontinued Start: 01-09-2014 End: 12-21-2022 take 1 tablet by mouth once daily Amphetamine-Dextroamphetamine (ADDERALL) 30 mg tablet Indications: Attention deficit disorder, unspecified hyperactivity presence Take 1 tablet by mouth once daily for 30 days. 30 tablet 0 12/21/2022 12/21/2022 Discontinued Comment on above: Take 1 tablet [...] luis th once daily for 30 days. Take 1 tablet by luis th once [...] ophthalmic solution (1 source) Diagnostic Dye Start: 023 End: 023 fluorescein-benoxinat e 0.25-0.4 % 1 Drop (FLURESS) 0.5 ml dulaglutide 3 mg/ml auto-injector (20 sources) GLP-1 Receptor Agonist Start: 025 End: 026 inject 1 dose by subcutaneous injection every week dulaglutide (TRULICITY) 1.5 mg/0.5 mL pen injector Indications: Type 2 diabetes mellitus without complication, without long-term current use of insulin (HCC) Inject 1.5 mg subcutaneously one time a week. Inject dose once per week. Discard Pen After 2 mL 06/23/2024 12/22/2024 Discontinued (Dosage adjustment) Start: 06-08-2024 End: 06-08-2025 inject 0.75 mg [...] per week. Discard Pen After 2 mL 06/04/2023 Active Comment on above: Inject 0.75 mg subcu taneously one time a week. Inject dose once per week. Discard Pen After glimepiride 2 mg oral tablet (20 sources) Sulfonylurea Start: 12-23-19 End: 09-14-19 take 1 tablet by mouth once daily at breakfast glimepiride (AMARYL) 2 mg tablet Indications: Type 2 diabetes mellitus without complication, without long-term current use of insulin (HCC) Take 1 tablet by mouth daily with breakfast. 90 tablet 3 09/13/2024 12/22/2024 Discontinued Start: 08-06-2021 End: 12-22-2022 take 1 tablet by mouth once daily at breakfast glimepiride (AMARYL) 1 mg tablet Indications: Type 2 diabetes mellitus without complication, without long-term current use of insulin (HCC) Take 1 tablet by mouth daily with breakfast. 90 tablet 0 05/13/2022 12/22/2022 Discontinued Comment on above: Take 1 tablet by luis th daily with breakfast. losartan potassium 25 mg oral tablet (14 sources) Angiotensin 2 Receptor Inessa Start: 2 [...] daily. 90 tablet 3 08/07/2021 10/16/2021 Discontinued Start: 01-23-2014 End: 06-16-2022 take 1 tablet by mouth once daily losartan (COZAAR) 25 mg tablet Indications: Primary hypertension Take 1 tablet by mouth once daily. 30 tablet 3 04/21/2022 06/16/2022 Discontinued (Side Effects) Comment on above: Take 1 tablet by luis once daily. 24 hr metFORMIN hydrochloride 500 mg extended release oral tablet (20 sources) Biguanide Start: End: take 1 tablet by mouth twice daily [...] breakfast. 60 tablet 5 04/21/2022 09/01/2022 Discontinued Start: 01-11-2014 take 1 tablet by luis once daily at mealtime Metformin 500 MG tablet Active 500 mg PO DAILY WITH MEALS January 11, 2014 12:00am Comment on above: Take 4 tablets by [...] Comment on above: Take [address] [facility] daily at bedtime. phenylephrine hydrochloride 25 mg/ml [...] 1000, FOR THE EYE Start: 09-01-2022 End: 09-01-2022 proparacaine 0.5 % 1 Drop (A LCAINE) regadenoson 0.4 mg injection (LEXISCAN) (2 sources) Start: 01-05-2025 End: 01-05-2025 regadenoson 0.4 mg injection (LEXISCAN) Start: 01-05-2025 End: 01-05-2025 0.4 mg, INTRAVENOUS, ONCE, 1 dose, On Wed01/05/25 at 1430, Give 0.4 mg (5 mL) over ~10 seconds, followed immediately by a 5 mL saline flush. Wait 10-20 seconds, then administer the radionuclide myocardial perfusion imaging agent. tropicamide 10 mg/ml ophthalmic solution (2 sources) Anticholinergic Start: 07-06-2024 End: 07-06-2024 tropicamide 1 % 1 Drop (MYDRIACYL) Start: 07-06-2024 End: 07-06-2024 1 Drop, BOTH EYES, ONCE, 1 d ose, On Wed07/06/24 at 1000, FOR THE EYE Problems Active Problems Problem Classification Problem Date Documented Da te Episodic/Chronic Administrative/social admission (2 sources) Repeated prescription; Translations: [Encounter for issue of repeat prescription] 02-08-2024 Episodic Asthma (20 sources) Mild intermittent asthma; Translations: [Mild intermittent asthma, uncomplicated] Onset: 12-26-2015 12-26-2015 Chronic Attention-deficit, conduct, and disruptive behavior disorders (1 source) Attention deficit hyperactivity disorder; Translations: [Attention-deficit hyperactivity disorder, unspecified type] 12-22-2024 Chronic Attention-deficit, conduct, and disruptive behavior disorders (1 source) Attention-deficit hyperactivity disorder, unspecified type; Translations: [Attention deficit hyperactivity disorder (ADHD), unspecified ADHD type] Onset: 04-28-2023 Chronic Blindness and vision defects (4 sources) Bilateral regular astigmatism; Translations: [Regular astigmatism, bilateral] Episodic Conditions associated with dizziness or vertigo (7 sources) Lightheadedness; Translations: [Dizziness and giddiness] Onset: 12-22-2024 12-22-2024 Episodic Coronary atherosclerosis and other heart disease (20 sources) Exercise-induced angina; Translations: [Exertional angina] Onset: 04-23-2023 04-23-2023 Chronic Deficiency and other anemia (1 source) Iron deficiency anemia; Translations: [Iron deficiency anemia, unspecified] 11-03-2024 Episodic Deficiency and other anemia (1 source) Iron deficiency anemia, unspecified; Translations: [Iron deficiency anemia, unspecified iron deficiency anemia type] Onset: 12-18-2024 Episodic Diabetes mellitus with complications (1 source) [...] hypertension] Onset: 08-28-2011 Chronic Malaise and fatigue (2 sources) Fatigue; Translations: [Other fatigue] Onset: 12-18-2024 11-24-2024 Episodic Nausea and vomiting (2 sources) Nausea and vomiting; Translations: [Nausea with vomiting, unspecified] 01-11-2014 Episodic Nonspecific chest pain (20 sources) Chest pain; Translations: [Chest pain, unspecified] Onset: 04-23-2023 Resolved: 05-10-2023 04-23-2023 Episodic Nutritional deficiencies (2 sources) Vitamin D deficiency; Translations: [Vitamin D deficiency, unspecified] Onset: 12-18-2024 11-03-2024 Chronic Nutritional deficiencies (2 sources) Cobalamin deficiency; Translations: [Deficiency of other specified B group vitamins] Onset: 12-18-2024 11-03-2024 Episodic Other circulatory disease (20 sources) History of angioplasty; Translations: [Peripheral vascular angioplasty status with implants and grafts] Onset: 05-10-2023 05-10-2023 Chronic Other connective tissue disease (1 source) Cramp; Translations: [Cramp and spasm] Episodic Other endocrine disorders (1 source) Male hypogonadism; Translations: [Testicular hypofunction] 12-22-2024 Chronic Other endocrine disorders (1 source) Testicular hypofunction; Translations: [Hypogonadism in male] Onset: 12-22-2024 Chronic Other eye disorders (2 sources) Disorder of lacrimal gland; Translations: [Dry eye syndrome of bilateral lacrimal glands] Episodic Other injuries and conditions due to external causes (1 source) Heat exhaustion; Translations: [Heat exhaustion, unspecified, initial encounter] 12-17-2024 Episodic Other non-traumatic joint disorders (1 source) Pain in right knee; Translations: [Pain in joint, lower leg] Episodic Other nutritional; endocrine; and metabolic disorders (1 source) Obesity; Translations: [Class 1 obesity with body mass index (BMI) of 34.0 to 34.9 in adult, unspecified obesity type, unspecified whether serious comorbidity present] 12-22-2024 Chronic Other nutritional; endocrine; and metabolic disorders (1 source) Body mass index (BMI) 34.0-34.9, adult; Translations: [Class 1 obesity with body mass index (BMI) of 34.0 to 34.9 in adult, unspecified obesity type, unspecified whether serious comorbidity present] Onset: 12-22-2024 Chronic Other nutritional; endocrine; and metabolic disorders (1 source) Obesity, unspecified; Translations: [Obesity (BMI 30-39.9)] Onset: 04-23-2023 Chronic Thyroid disorders (2 sources) Hypothyroidism; Translations: [Hypothyroidism, unspecified] Onset: 12-18-2024 11-03-2024 Chronic Unclassified (2 sources) Acute pain of right shoulder 08-14-2024 Unclassified (1 source) Class 1 obesity with body mass index (BMI) of 34.0 to 34.9 in adult, unspecified obesity type, unspecified whether serious comorbidity present; Translations: [Class 1 obesity with body mass index (BMI) of 34.0 to 34.9 in adult, unspecified obesity type, unspecified whether serious comorbidity present] Onset: 12-22-2024 Past or Other Problems Problem Classification Problem Date Documented Da te Episodic/Chronic Allergic reactions (20 sources) Allergic reaction; Translations: [Allergy, unspecified, initial encounter] Onset: 04-24-2023 04-24-2023 Episodic Other non-traumatic joint disorders (20 sources) Hip pain; Translations: [Pain in right hip] Onset: 08-31-2024 08-14-2024 Episodic Other non-traumatic joint disorders (20 sources) Pain in right shoulder; Translations: [Pain in joint, shoulder region] Onset: 08-31-2024 Resolved: 12-22-2024 08-14-2024 Episodic Other non-traumatic joint disorders (1 source) Pain in right hip; Translations: [Bilateral hip pain] Onset: 08-31-2024 Episodic Other non-traumatic joint disorders (1 source) Pain in left hip; Translations: [Bilateral hip pain] Onset: 08-31-2024 Episodic Other nutritional; endocrine; and metabolic disorders (20 sources) Body mass index 30+ - obesity; Translations: [Obesity, unspecified] Onset: 04-23-2023 Resolved: 12-22-2024 04-23-2023 Chronic Other nutritional; endocrine; and metabolic [...] Test Name Value Interpretation Reference Range Facility NM CARDIAC PERF STRESS/PHARM on 01-05-2025 NM CARDIAC PERF STRESS/PHARM * * *Final Report* * * DATE OF EXAM: Jan 05 2025 3:43PM JAMES 0006 - NM CARDIAC PERF STRESS/PHARM / PROCEDURE REASON: multiple diagnoses * * * * Physician Interpretation * * * * Stress Loaders Report: [facility] Date of service: 01/05/2025 2:25:58 PM Supervising physician: Donovan Blount MD PATIENT: Name: MR. SIVAN TAMAYO Age: 54 years Gender: M The supervising physician was in the department and immediately available. * * * Final * * * -------- PATIENT: Name: MR. SIVAN TAMAYO Age: 54 years Gender: M CONCLUSIONS: 1. SPECT Perfusion Study: Normal. 2. There is no scintigraphic evidence for inducible ischemia. 3. No evidence of scarred myocardium. 4. Left ventricle is normal in size. The left ventricle systolic function is normal. 5. Right ventricle is normal in size. The right ventricle systolic function is normal. 6. This is a low risk scan. Gated Stress IR:3D LVEF % 72 Prior Study Comparison Prior nuclear cardiology exam was performed on 04/26/2023. Nuclear Med Report:1-Day Gated SPECT Myocardial Perfusion with Regadenoson Stress: Myocardial perfusion imaging was performed at rest 30 minutes following the IV injection of the radiotracer. The patient received 0.4 mg of regadenoson, via rapid IV push, immediately followed by radiotracer IV. Gated post stress tomographic imaging was performed 30 to 60 minutes later. See administered radiotracer and doses below. [facility] Date of service: 01/05/2025 2:25:58 PM Ordering Physician: WES GATES. Requesting Physician: Indication: CP - ECG uninterpretable OR unable to exercise Interpreting physician: Rory Hoffman MD Previous Cardiovascular Interventions: PCI (2022 x3) Height: 182.88 cm BSA: 2.40 m? Weight: 113.85 kg BMI: 34.0 kg/m? CT Dose-Length Product(DLP): 47.9 mGy * cm. CT Dose Reduction Employed: Yes. Exam Type: Rest Stress Radiopharm: Tc-99m Tetrofosmin Tc-99m Tetrofosmin Dosage(mCi): 12 35.8 Atten Correction: not performed performed Stress Agent: Regadenoson 0.4mg Supply provided from [facility] Resting Blood Press: 130/81 mmHg Image Quality The overall study imaging quality was deemed to be good. FINDINGS: Left Ventricle Wall Motion: Stress IR:3D - All segments are normal. Rest IR:3D - Gated Stress IR:3D - Reversibility - Stress IR:3D Stress IR:3D Gated Stress IR:3D LVEF: 72 % ED Volume: 110 ml ES Volume: 31 ml TID: 1.02 Perfusion Findings Stress IR:3D - Summed Score=0 All segments demonstrate normal perfusion. Rest IR:3D - Summed Score=0 All segments demonstrate normal perfusion. Stress IR:3D Rest IR:3D Summed Score=0 Summed Score=0 LEFT VENTRICLE The left ventricle is normal in size. Left ventricular systolic function is normal. Right Ventricle The right ventricle is normal in size. Right ventricle systolic function is normal. Stress Test Findings: There is no scintigraphic evidence for inducible ischemia. There is no evidence of scarring. * * * Final * * * -------- NM CTAC Report: [facility] Date of service: 01/05/2025 2:25:58 PM CTAC interpreting physician: Ari Osborne MD PATIENT: Name: MR. SIVAN TAMAYO Age: 54 years Gender: M 1. Incidental Findings from limited non-diagnostic CTAC: - Coronary calcifications or stent visualized. * * * Final * * * -------- Stress ECG Report: [facility] Date of service: 01/05/2025 2:25:58 PM Ordering physician: WES GATES civil engineering specialist: Diamond Zhu Fishing Rod Assembler: Verito Betancourt Interpreting physician: Donovan Blount MD Patient name: MR. SIVAN TAMAYO Age: 54 years Gender: M Height: 182.88 cm BSA: 2.40 m? Weight: 113.85 kg BMI: 34.0 kg/m? Indication: Chest pressure / Chest tightness Stress ECG Conclusion: Conclusion: Normal Stress ECG Summary: The patient's resting heart rate was 75 bpm and blood pressure was 130/81 mmHg. The test was terminated due to end of protocol. No symptoms provoked during stress. The maximum heart rate was 105 bpm, which is 63% of the predicted heart rate for age. Peak blood pressure was 150/85 mmHg. The double product achieved was 80[address]. Previous cardiovascular interventions: PCI (2022 x3) Medications: Last Used IMDUR 8 Hours Resting ECG: Normal Sinus Rhythm Symptoms at rest: No symptoms Pharamcologic Protocol: Regadenoson Stress Exercise Table: +-----+---+---+---+ Stage HR SYS EVONNE +- (more content not included)... Normal [facility] Heart Perfusion W stress and W radionuclide Jet 01-05-2025 * * *Final Report* * * DATE OF EXAM: Jan 05 2025 3:43PM JAMES 0006 - NM CARDIAC PERF STRESS/PHARM / PROCEDURE REASON: multiple diagnoses * * * * Physician Interpretation * * * * Stress Loaders Report: [facility] Date of service: 01/05/2025 2:25:58 PM Supervising physician: Donovan Blount MD PATIENT: Name: MR. SIVAN TAMAYO Age: 54 years Gender: M The supervising physician was in the department and immediately available. * * * Final * * * -------- PATIENT: Name: MR. SIVAN TAMAYO Age: 54 years Gender: M CONCLUSIONS: 1. SPECT Perfusion Study: Normal. 2. There is no scintigraphic evidence for inducible ischemia. 3. No evidence of scarred myocardium. 4. Left ventricle is normal in size. The left ventricle systolic function is normal. 5. Right ventricle is normal in size. The right ventricle systolic function is normal. 6. This is a low risk scan. Gated Stress IR:3D LVEF % 72 Prior Study Comparison Prior nuclear cardiology exam was performed on 04/26/2023. Nuclear Med Report:1-Day Gated SPECT Myocardial Perfusion with Regadenoson Stress: Myocardial perfusion imaging was performed at rest 30 minutes following the IV injection of the radiotracer. The patient received 0.4 mg of regadenoson, via rapid IV push, immediately followed by radiotracer IV. Gated post stress tomographic imaging was performed 30 to 60 minutes later. See administered radiotracer and doses below. [facility] Date of service: 01/05/2025 2:25:58 PM Ordering Physician: WES GATES. Requesting Physician: Indication: CP - ECG uninterpretable OR unable to exercise Interpreting physician: Rory Hoffman MD Previous Cardiovascular Interventions: PCI (2022 x3) Height: 182.88 cm BSA: 2.40 m Weight: 113.85 kg BMI: 34.0 kg/m CT Dose-Length Product(DLP): 47.9 mGy * cm. CT Dose Reduction Employed: Yes. Exam Type: Rest Stress Radiopharm: Tc-99m Tetrofosmin Tc-99m Tetrofosmin Dosage(mCi): 12 35.8 Atten Correction: not performed performed Stress Agent: Regadenoson 0.4mg Supply provided from [facility] Resting Blood Press: 130/81 mmHg Image Quality The overall study imaging quality was deemed to be good. FINDINGS: Left Ventricle Wall Motion: Stress IR:3D - All segments are normal. Rest IR:3D - Gated Stress IR:3D - Reversibility - Stress IR:3D Stress IR:3D Gated Stress IR:3D LVEF: 72 % ED Volume: 110 ml ES Volume: 31 ml TID: 1.02 Perfusion Findings Stress IR:3D - Summed Score=0 All segments demonstrate normal perfusion. Rest IR:3D - Summed Score=0 All segments demonstrate normal perfusion. Stress IR:3D Rest IR:3D Summed Score=0 Summed Score=0 LEFT VENTRICLE The left ventricle is normal in size. Left ventricular systolic function is normal. Right Ventricle The right ventricle is normal in size. Right ventricle systolic function is normal. Stress Test Findings: There is no scintigraphic evidence for inducible ischemia. There is no evidence of scarring. * * * Final * * * -------- ID CTAC Report: [facility] Date of service: 01/05/2025 2:25:58 PM CTAC interpreting physician: Ari Osborne MD PATIENT: Name: MR. SIVAN TAMAYO Age: 54 years Gender: M 1. Incidental Findings from limited non-diagnostic CTAC: - Coronary calcifications or stent visualized. * * * Final * * * -------- Stress ECG Report: [facility] Date of service: 01/05/2025 2:25:58 PM Ordering physician: WES GATES civil engineering specialist: Diamond Zhu Fishing Rod Assembler: Verito Betancourt Interpreting physician: Donovan Blount MD Patient name: MR. SIVAN TAMAYO Age: 54 years Gender: M Height: 182.88 cm BSA: 2.40 m Weight: 113.85 kg BMI: 34.0 kg/m Indication: Chest pressure / Chest tightness Stress ECG Conclusion: Conclusion: Normal Stress ECG Summary: The patient's resting heart rate was 75 bpm and blood pressure was 130/81 mmHg. The test was terminated due to end of protocol. No symptoms provoked during stress. The maximum (more content not included)... [facility] RADIOLOGY Provider, [facility] - 01/05/2025 * * *Final Report* * * DATE OF EXAM: Jan 05 2025 3:43PM JAMES 0006 - NM CARDIAC PERF STRESS/PHARM / PROCEDURE REASON: multiple diagnoses * * * * Physician Interpretation * * * * Stress Loaders Report: [facility] Date of service: 01/05/2025 2:25:58 PM Supervising physician: Donovan Blount MD PATIENT: Name: MR. SIVAN TAMAYO Age: 54 years Gender: M The supervising physician was in the department and immediately available. * * * Final * * * -------- PATIENT: Name: MR. SIVAN TAMAYO Age: 54 years Gender: M CONCLUSIONS: 1. SPECT Perfusion Study: Normal. 2. There is no scintigraphic evidence for inducible ischemia. 3. No evidence of scarred myocardium. 4. Left ventricle is normal in size. The left ventricle systolic function is normal. 5. Right ventricle is normal in size. The right ventricle systolic function is normal. 6. This is a low risk scan. Gated Stress IR:3D LVEF % 72 Prior Study Comparison Prior nuclear cardiology exam was performed on 04/26/2023. Nuclear Med Report:1-Day Gated SPECT Myocardial Perfusion with Regadenoson Stress: Myocardial perfusion imaging was performed at rest 30 minutes following the IV injection of the radiotracer. The patient received 0.4 mg of regadenoson, via rapid IV push, immediately followed by radiotracer IV. Gated post stress tomographic imaging was performed 30 to 60 minutes later. See administered radiotracer and doses below. [facility] Date of service: 01/05/2025 2:25:58 PM Ordering Physician: WES GATES. Requesting Physician: Indication: CP - ECG uninterpretable OR unable to exercise Interpreting physician: Rory Hoffman MD Previous Cardiovascular Interventions: PCI (2022 x3) Height: 182.88 cm BSA: 2.40 m Weight: 113.85 kg BMI: 34.0 kg/m CT Dose-Length Product(DLP): 47.9 mGy * cm. CT Dose Reduction Employed: Yes. Exam Type: Rest Stress Radiopharm: Tc-99m Tetrofosmin Tc-99m Tetrofosmin Dosage(mCi): 12 35.8 Atten Correction: not performed performed Stress Agent: Regadenoson 0.4mg Supply provided from [facility] Resting Blood Press: 130/81 mmHg Image Quality The overall study imaging quality was deemed to be good. FINDINGS: Left Ventricle Wall Motion: Stress IR:3D - All segments are normal. Rest IR:3D - Gated Stress IR:3D - Reversibility - Stress IR:3D Stress IR:3D Gated Stress IR:3D LVEF: 72 % ED Volume: 110 ml ES Volume: 31 ml TID: 1.02 Perfusion Findings Stress IR:3D - Summed Score=0 All segments demonstrate normal perfusion. Rest IR:3D - Summed Score=0 All segments demonstrate normal perfusion. Stress IR:3D Rest IR:3D Summed Score=0 Summed Score=0 LEFT VENTRICLE The left ventricle is normal in size. Left ventricular systolic function is normal. Right Ventricle The right ventricle is normal in size. Right ventricle systolic function is normal. Stress Test Findings: There is no scintigraphic evidence for inducible ischemia. There is no evidence of scarring. * * * Final * * * -------- NM CTAC Report: [facility] Date of service: 01/05/2025 2:25:58 PM CTAC interpreting physician: Ari Osborne MD PATIENT: Name: MR. SIVAN TAMAYO Age: 54 years Gender: M 1. Incidental Findings from limited non-diagnostic CTAC: - Coronary calcifications or stent visualized. * * * Final * * * -------- Stress ECG Report: [facility] Date of service: 01/05/2025 2:25:58 PM Ordering physician: WES GATES civil engineering specialist: Diamond Zhu Fishing Rod Assembler: Verito Betancourt Interpreting physician: Donovan Blount MD Patient name: MR. SIVAN TAMAYO Age: 54 years Gender: M Height: 182.88 cm BSA: 2.40 m Weight: 113.85 kg BMI: 34.0 kg/m Indication: Chest pressure / Chest tightness Stress ECG Conclusion: Conclusion: Normal Stress ECG Summary: The patient's resting heart rate was 75 bpm and blood pressure was 130/81 mmHg. The test was terminated due to end of protocol. No symptoms provoked during stress. The maximum heart rate was 105 bpm, which is 63% of the predicted heart rate for age. Peak blood pressure was 150/85 mmHg. The double product achieved was 269[address]. Previous cardiovascular interventions: PCI (2022 x3) Medications: Last Used IMDUR 8 Hours Rest (more content not included)... [facility] Radiology Study observation (narrative) [facility] Heart Perfusion W stress and W radionuclide IVOrdered By: Ccf Provider on 01-05-2025 [facility] [place] 01-04-2025 CNPN Telephone (CDLBME) SIVAN TAMAYO ([id number]) 1970 M Date Time Provider Department 01/04/25 DIAMOND ZHU CDLBME During your visit today, we recorded the following information about you: Diamond Zhu RN 01/04/2025 3:25 PM Signed Spoke to pt regarding reminder and instructions for stress test tomorrow. This included where to check in, length of test and no caffeine for 12 hours prior to test. Allergies As of Date: 01/04/2025 Noted Allergy Reaction AMLODIPINE 04/24/2023 14 - Other: See Comments Comments: Facial numbness Date Reviewed: 11/03/2024 Reviewed by: Aydin Tanner LPN - Fully Assessed Reason for Visit: Reminder Call [[id number]] Prescriptions as of 01/04/2025 - DULoxetine DR (CYMBALTA) 30 mg capsule Take 1 capsule by mouth once daily. - empagliflozin (JARDIANCE) 10 mg tablet Take 10 mg by mouth daily with breakfast. - clopidogrel (PLAVIX) 75 mg tablet Take 1 tablet by mouth once daily. - Lancets Test blood sugar(s) 1 times daily. Dx: Type 2 DM - Uncontrolled E11.65 Insulin: No - blood sugar diagnostic (BLOOD GLUCOSE TEST) [...] once daily. Problem List As Of Date 01/04/2025 Noted Resolved ADD (attention deficit disorder) [F98.8] 08/28/2011 Essential hypertension [I10] 08/28/2011 Type 2 diabetes mellitus without complication, *12/26/2015 Mild intermittent asthma without complication [*12/26/2015 Special screening for malignant neoplasm of col*02/25/2023 Exertional chest pain [R07.9] 04/23/2023 05/10/2023 Obesity (BMI 30-39.9) [E66.9] 04/23/2023 12/22/2024 Allergic reaction [T78.40XA] 04/24/2023 Obesity, Class II, BMI 35-39.9 [E66.812] 04/26/2023 06/23/2024 Coronary artery disease involving twin hills [place]*04/27/2023 Mixed hyperlipidemia [E78.2] 04/27/2023 S/P angioplasty with stent [Z95.820] 05/10/2023 Obesity, Class I, BMI 30-34.9 [E66.811] 05/11/2023 06/23/2024 Acute pain of right shoulder [M25.511] 08/31/2024 12/22/2024 Bilateral hip pain [M25.551, M25.552] 08/31/2024 Encounter Status:Closed by DIAMOND ZHU on 01/04/[address] [facility] 12-22-2024 [facility] SIVAN TAMAYO ([id number]) 1970 M Date Time Provider Department 12/22/24 3:40 PM WES GATES During your visit today, we recorded the following information about you: Blood pressure Weight 122/72 113.9 kg Wes Gates MD 12/22/2024 4:17 PM Signed - Stop taking glimepiride as discussed. - Continue your other medications (Jardiance, Cymbalta, and Trulicity 3 mg weekly) exactly as prescribed. - Check your blood sugar twice daily and any time you feel lightheaded, dizzy, or have chest discomfort. - Wash your hands and get a good drop of blood for each reading. - Send your blood sugar results via [employer] in about two weeks. - Schedule morning blood work in about two weeks to include PSA, LH, FSH, and testosterone. - Complete a pharmacologic nuclear stress test (not treadmill-based); our office will arrange this for you. - Follow up in approximately eight weeks to review your progress and test results. - If you develop severe chest pain, worsening lightheadedness, or other concerning symptoms, seek medical care promptly. Wes Gates MD 12/22/2024 5:16 PM Signed Sivan Tamayo is a 54-year-old male with a history of DM, presenting for follow-up after a recent ER visit dizziness and emesis, with additional complaints of intermittent chest pain, fatigue, and tremors. HPI Dizziness and Emesis: - Recent ER visit on 12/17 at [facility] for dizziness and emesis. - Symptoms began after being outside for an hour in hot weather. - Had some chest discomfort. - Initial emesis occurred after drinking water; subsequent emesis after consuming electrolytes. - Received IV fluids and Zofran in the ER, with improvement in symptoms. - ER workup included CBC, BMP, troponins, and EKG. - Suspects Jardiance may contribute to dizziness; denies checking blood glucose levels during episodes. - Discussed his amaryl is the most likely culprit for hypoglycemia. Chest Pain: - Intermittent, fleeting, non-radiating chest pain. - Recent episodes described as sharper and lasting longer than previous episodes. - Denies current significant chest pain or dyspnea. - Last stress test was over a year ago. - Does not feel due to his hip issues he can do a treadmill. Fatigue: - Reports significant fatigue, especially in the afternoon around [id number]. - Has a history of sleep apnea and uses a CPAP machine; notes improvement in snoring with weight loss. Tremors: - Persistent hand tremors noted since on cymbalta. Feels the med helps though. Diabetes Mellitus: - Recent hemoglobin A1c of 5.5; previously as high as 9. - Current medications include Jardiance, glimepiride, and Trulicity 3 mg. - Suspects Jardiance may contribute to dizziness. Discussed hydration. ADD: - Currently taking Cymbalta for ADD; reports increased sweating since starting medication. - Recently took Adderall for a week by mistake, leading to increased fatigue after discontinuation. - Denies missing doses of Cymbalta. Low Testosterone: - Recent testosterone level was borderline low. - Sivan's brother has a history of low testosterone and is on injections. MEDICATIONS: Current Outpatient Medications Medication Sig empagliflozin (JARDIANCE) 10 mg tablet Take 10 mg by mouth daily with breakfast. DULoxetine (CYMBALTA) 30 mg capsule Take 1 capsule by mouth once daily. clopidogrel (PLAVIX) 75 mg tablet Take 1 tablet by mouth once daily. dulaglutide (TRULICITY) 3 mg/0.5 mL pen injector [...] 2 DM - Uncontrolled E11.65 Insulin: No blood sugar diagnostic (BLOOD GLUCOSE TEST) test strip Test blood sugar(s) 1 times daily. Dx: Type 2 DM - Uncontrolled E11.65 Insulin: No TRUE METRIX GLUCOSE METER as directed. aspirin 81 mg chewable tablet Take 1 tablet by mouth once daily. No current facility-administered medications for this visit. 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 REP (more content not included)... Normal [facility] 25(OH)D3 [facility] 25-hydroxyvitamin D3 [Mass/Vol] 39.7 ng/mL Normal 31.0-80.0 [facility] Comment on above: Order Comment: Speci men Type: BLOOD SPECIMEN Ordering Facility: [facility] Address: [address] [place] [address] Result Comment: Clas sification of 25 [place] Vitamin D status: Deficiency/Insufficiency: < or = 30 ng/ml. Sufficiency/Optimal Levels: 31-80 ng/mL Toxicity: > 100 ng/mL. Test performed by chemiluminescent immunoassay. Performed By: #### 1 989-3 #### [facility] CLIA [id number] [address] [place] [address] [place] Ferritin [facility] 2024 Ferritin [Mass/Vol] 336.0 ng/mL Normal 30.3-565.7 [facility] Comment on above: Order Comment: Speci men Type: BLOOD SPECIMEN Ordering Facility: [facility] Address: [address] [place] [address] Performed By: #### 2 276-4, 2132-9 #### [facility] CLIA [id number] [address] [place] [address] [place] HbA1c (Bld)on 12-18-2024 Average glucose Estimated from glycated hemoglobin (Bld) [Mass/Vol] 111 mg/dL Normal [facility] Comment on above: Order Comment: Speci men Type: BLOOD SPECIMENOrdering Facility: [facility] Address: [address] [place] [address] Result Comment: eAG: (Estimated average glucose) is a calculated value from HgbA1c and is nutrition representative of the average blood glucose level in the last 2-3 month period. Performed By: #### 5 5454-3 ####[facility] [id number] [address] [place] HbA1c (Bld) [Mass fraction] 5.5 % Normal 4.3-5.6 [facility] Comment on above: Order Comment: Shellie ortega Type: BLOOD SPECIMENOrdering Facility: [facility] Address: [address] [place] [address] Result Comment: [place] Diabetes Association guidelines indicate that patients with HgbA1c in the range 5.7-6.4% are at increased risk for development of diabetes, and intervention by lifestyle modification may be beneficial. HgbA1c greater or equal to 6.5% is considered diagnostic of diabetes. Performed By: #### 5 5454-3 ####[facility] [id number] [place] [address] [place] Iron and Iron binding capaci ty panelon 12-18-2024 Iron [Mass/Vol] 121 ug/dL Normal 41-186 [facility] Comment on above: Order Comment: Shellie men Type: BLOOD SPECIMEN Ordering Facility: [facility] Address: [address] [place] [address] Performed By: #### 2 276-4, 2132-02 #### [facility] CLIA [id number] [address] [place] [address] [place] Iron binding capacity [Mass/Vol] 348 ug/dL Normal 232-386 [facility] Comment on above: Order Comment: Nancyi men Type: BLOOD SPECIMEN Ordering Facility: [facility] Address: [address] [place] [address] Performed By: #### 2 276-4, 2132-02 #### [facility] CLIA [id number] [address] [place] [address] [place] Iron/TIBC [Molar ratio] 34.8 % Normal 15.0-57.0 [facility] Comment on above: Order Comment: Nancyi men Type: BLOOD SPECIMEN Ordering Facility: [facility] Address: [address] [place] [address] Performed By: #### 2 276-4, 2132-02 #### [facility] CLIA [id number] [address] [place], [place] [address] [address] STATES OF [facility] LIPOPROTEIN FRACTIONATION BY NMR WITH LIPIDSon 12-18-2024 Cholesterol [Mass/Vol] 120 mg/dL Normal <=199 [facility] Comment on above: Order Comment: Speci men Type: BLOOD SPECIMENOrdering Facility: [facility] Address: [address] [place] [address] Performed By: #### N MRLPD ####[facility] [id number] [place] [address] Cholesterol in HDL [Mass/Vol] 40 mg/dL Normal 40-59 [facility] Comment on above: Order Comment: Speci men Type: BLOOD SPECIMENOrdering Facility: [facility] Address: [address] [place] [address] Performed By: #### N MRLPD ####[facility] [id number] [place] [address] EER LIPOFIT BY NMR See Note Normal [facility] Comment on above: Order Comment: Speci men Type: BLOOD SPECIMENOrdering Facility: [facility] Address: [address] [place] [address] Result Comment: Auth orized individuals can access the [employer] Enhanced Report with an [employer] Connect account using the following link. Your local lab can assist you in obtaining the patient report if you don't have a Connect account. [email or web address] INTERPRETIVE INFORMATION: LipoFit by NMR This test was developed and its performance characteristics determined by [facility]. It has not been cleared or approved by the [place] Food and Drug Administration. This test was performed in a CLIA certified laboratory and is intended for clinical purposes. Performed By: [facility] [address] [place] [address] Mental Health Aide: Grayson Padilla MD, PhD CLIA Number: [id number] Performed By: #### N MRLPD ####[facility] [id number] [place] [address] HDL PARTICLE NUMBER, NMR 31.2 umol/L Low >=33.0 [facility] Comment on above: Order Comment: Speci men Type: BLOOD SPECIMENOrdering Facility: [facility] Address: [address] [place] [address] Result Comment: INTE RPRETIVE INFORMATION: HDL Particle Number, NMR Percentiles in Reference Population: 25th 50th 75th 29.7 33.0 36.8 Performed By: #### N MRLPD ####[facility] [id number] [place] [address] HDL PARTICLE SIZE, NMR 8.6 nm Low >=8.9 [facility] Comment on above: Order Comment: Speci men Type: BLOOD SPECIMENOrdering Facility: [facility] Address: [address] [place] [address] Result Comment: INTE RPRETIVE INFORMATION: HDL Particle Size, NMR Percentiles in Reference Population: 25th 50th 75th 8.6 8.9 9.3 Performed By: #### N MRLPD ####[facility] [id number] [place] [address] LARGE HDL PARTICLE NUMBER, NMR <2.8 Low >=4.2 [facility] Comment on above: Order Comment: Speci men Type: BLOOD SPECIMENOrdering Facility: [facility] Address: [address] [place] [address] Result Comment: INTE RPRETIVE INFORMATION: Large HDL Particle Number, NMR Percentiles in Reference Population: 25th 50th 75th 2.0 4.2 7.3 Performed By: #### N MRLPD ####[facility] [id number] [place] [address] LARGE VLDL PARTICLE NUMBER, NMR <1.5 Normal <=2.7 [facility] Comment on above: Order Comment: Speci men Type: BLOOD SPECIMENOrdering Facility: [facility] Address: [address] [place] [address] Result Comment: INTE RPRETIVE INFORMATION: Large VLDL Particle Number, NMR Percentiles in Reference Population: 25th 50th 75th 0.9 2.7 7.0 Performed By: #### N MRLPD ####[facility] [id number] [place] [address] LDL CHOL CALCULATED 64 mg/dL Normal <=129 [facility] Comment on above: Order Comment: Speci men Type: BLOOD SPECIMENOrdering Facility: [facility] Address: [address] [place] [address] Performed By: #### N MRLPD ####[facility] [id number] [place] [address] LDL PARTICLE NUMBER, NMR 1006 nmol/L Normal <=1135 [facility] Comment on above: Order Comment: Speci men Type: BLOOD SPECIMENOrdering Facility: [facility] Address: [address] [place] [address] Result Comment: REFE RENCE INTERVAL: LDL Particle Number, NMR Low............... Less than 1136 Moderate.......... 1136 - 1449 Borderline High... 1450 - 1764 High.............. 1765 - 2186 Very High......... Greater than 2186 Percentiles in Reference Population: 20th 50th 80th 95th 1136 1450 1765 2186 Percentiles consistent with those from NCEP ATP III LDL-C cutpoints of 100 mg/dL(20th percentile) and 160 mg/dL (80th percentile). Performed By: #### N MRLPD ####[facility] [id number] [place] [address] LDL PARTICLE SIZE, NMR 20.8 nm Normal >=20.7 [facility] Comment on above: Order Comment: Speci men Type: BLOOD SPECIMENOrdering Facility: [facility] Address: [address] [place] [address] Result Comment: INTE RPRETIVE INFORMATION: LDL Particle Size, NMR Percentiles in Reference Population: 25th 50th 75th 19.6 20.7 22.5 Performed By: #### N MRLPD ####[facility]CL[facility] [id number] [place] [address] SMALL LDL PARTICLE NUMBER, NMR 569 nmol/L Normal <=634 [facility] Comment on above: Order Comment: Speci men Type: BLOOD SPECIMENOrdering Facility: [facility] Address: [address] [place] [address] Result Comment: INTE RPRETIVE INFORMATION: Small LDL Particle Number, NMR Percentiles in Reference Population: 25th 50th 75th [phone] Performed By: #### N MRLPD ####[facility]CLIA [id number] [place] [address] Triglyceride [Mass/Vol] 79 mg/dL Normal 30-149 [facility] Comment on above: Order Comment: Speci men Type: BLOOD SPECIMENOrdering Facility: [facility] Address: [address] [place] [address] Performed By: #### N MRLPD ####[facility] [id number] [place] [address] VLDL PARTICLE SIZE, NMR 47.1 nm High <=46.7 [facility] Comment on above: Order Comment: Speci men Type: BLOOD SPECIMENOrdering Facility: [facility] Address: [address] [place] [address] Result Comment: INTE RPRETIVE INFORMATION: VLDL Particle Size, NMR Percentiles in Reference Population: 25th 50th 75th 44.3 46.7 50.2 Performed By: #### N MRLPD ####[facility] [id number] [place] [address] LPa SerPl-mCncon 12-18-2024 Lipoprotein a [Mass/Vol] 18 mg/dL Normal <30 [facility] Comment on above: Order Comment: Speci men Type: BLOOD SPECIMENOrdering Facility: [facility] Address: [address] [place] [address] Performed By: #### 1 0835-7 ####[facility] LABCLIA [id number] [place] [address] [place] T3Free SerPl-mCncon 12-19-19 25 Free T3 [Mass/Vol] 3.6 pg/mL Normal 2.3-4.1 [facility] Comment on above: Order Comment: Speci men Type: BLOOD SPECIMEN Ordering Facility: [facility] Address: [address] [place] [address] Performed By: #### 2 276-4, 2132-02 #### [facility] CLIA [id number] [address] [place] [address] [place] TSH SerPl-aCncon 12-18-2024 TSH Qn 2.150 m[IU]/L Normal 0.270-4.200 [facility] Comment on above: Order Comment: Speci men Type: BLOOD SPECIMEN Ordering Facility: [facility] Address: [address] [place] [address] Performed By: #### 2 276-4, 2132-02 #### [facility] CLIA [id number] [address] [place] [address] [place] Testost SerPl-mCncon 025 Testosterone [Mass/Vol] 290 ng/dL Normal 193-824 [facility] Comment on above: Order Comment: Speci men Type: BLOOD SPECIMEN Ordering Facility: [facility] Address: [address] [place] [address] Result Comment: A te stosterone level in the 193-320 ng/dL range with associated clinical symptoms is considered low and may indicate hypogonadism (from [facility] 2010 363:123-135). Results >320 ng/dL are considered normal. Performed By: #### 2 276-4, 2132-02 #### [facility] CLIA [id number] [address] [place] [address] [place] Vit B12 SerPl-mCncon 025 Cobalamin (Vitamin B12) [Mass/Vol] 542 pg/mL Normal 232-1245 [facility] Comment on above: Order Comment: Speci men Type: BLOOD SPECIMEN Ordering Facility: [facility] Address: [address] [place] [address] Performed By: #### 2 276-4, 2132-02 #### [facility] CLIA [id number] [address] [place] [address] [place] 12 Lead EKGon 12-17-2024 12 Lead EKG [facility] Cardiovascular Services [address] [place] [address] 12 Lead EKG 12/17/24 1652 MR#: [id number] Acct: [id number] Name: SIVAN TAMAYO Rep #: [id number] : 1970 54 From: Enoc Gatica MD Attending Dr: Status: DEP ER Ordering Dr: Vadim Ng DO Date: 12/17/24 Location: ED Sex: M C Admitted: Test Reason : PALPITATIONS Blood Pressure : */* mmHG Vent. Rate : 102 BPM Atrial Rate : 102 BPM P-R Int : 164 ms QRS Dur : 88 ms QT Int : 342 ms P-R-T Axes : 43 0 19 degrees QTcB Int : 445 ms Sinus tachycardia Otherwise normal ECG Confirmed by Enoc Gatica ([id number]), general expeditor JOHN ROSADO ([id number]) on 12/18/2024 1:10:59 PM Referred By: Confirmed By: Enoc Gatica 12/18/24 1311 Date Enoc Gatica MD CC: Dr. Vadim Ng DO; Dr. Wes Gates MD Signed Normal [facility] Absolute lymphocyte countOrd ered By: Vadim Ng on 12-17-2024 Lymphocytes Auto (Unsp spec) [#/Vol] 1.70 10*3/uL 0.83-4.51 [facility] Absolute neutrophil countOrd ered By: Vadim Ng on 12-17-2024 Neutrophils (Bld) [#/Vol] 3.8 10*3/uL 2.0-7.7 [facility] Anion gap in Serum or Plasma Ordered By: Vadim Ng on 12-17-2024 Anion gap [Moles/Vol] 12 mmol/L 5-15 [facility] Automated lymphocyte count a s percentage of total leukocytesOrdered By: Vadim Ng on 12-17-2024 Lymphocytes/100 WBC Auto (Unsp spec) 27.4 % 19-41 [facility] BUN/creatinine ratioOrdered By: Vadim Ng on 12-17-2024 Urea nitrogen/Creatinine [Mass ratio] 23.2 mg/mg High - [facility] Basic Metabolic Profile (BMP )on 12-17-2024 BUN/CRE 23.2 RATIO High - [facility] Comment on above: Performed By: #### L 501.4021, L500.2500, L100.0100 #### [facility] [address] [place], [address] Calcium [Mass/Vol] 9.0 mg/dL Normal 7.6-11.0 [facility] Comment on above: Performed By: #### L 501.4021, L500.2500, L100.0100 #### [facility] [address] [place], [address] Chloride [Moles/Vol] 108 mmol/L Normal 98-108 [facility] Comment on above: Performed By: #### L 501.4021, L500.2500, L100.0100 #### [facility] [address] [place], [address] CO2 [Moles/Vol] 21.0 mmol/L Normal 21.0-32.0 [facility] Comment on above: Performed By: #### L 501.4021, L500.2500, L100.0100 #### [facility] [address] [place], [address] Creatinine [Mass/Vol] 0.97 mg/dL Normal 0.70-1.20 [facility] Comment on above: Performed By: #### L 501.4021, L500.2500, L100.0100 #### [facility] [address] [place], [address] ECRCL 114.54 ml/min Normal 50-250 [facility] Comment on above: Performed By: #### L 501.4021, L500.2500, L100.0100 #### [facility] [address] [place], [address] GAP 12 Normal 5-15 [facility] Comment on above: Performed By: #### L 501.4021, L500.2500, L100.0100 #### [facility] [address] [place], [address] GFR/1.73 sq M.predicted among non-blacks MDRD (S/P/Bld) [Vol rate/Area] 94 mL/min/{1.73_m2} Normal >60 [facility] Comment on above: Result Comment: mL/m in/1.73m2 CKD-EPI Creatinine Equation (2020) Performed By: #### L 501.4021, L500.2500, L100.0100 #### [facility] [address] [place], [address] Glucose [Mass/Vol] 75 mg/dL Normal 70-99 [facility] Comment on above: Performed By: #### L 501.4021, L500.2500, L100.0100 #### [facility] [address] [place], [address] Potassium [Moles/Vol] 4.0 mmol/L Normal 3.3-5.1 [facility] Comment on above: Performed By: #### L 501.4021, L500.2500, L100.0100 #### [facility] [address] [place], [address] Sodium [Moles/Vol] 141 mmol/L Normal 133-145 [facility] Comment on above: Performed By: #### L 501.4021, L500.2500, L100.0100 #### [facility] [address] [place], [address] Urea nitrogen [Mass/Vol] 23 mg/dL High 4-19 [facility] Comment on above: Performed By: #### L 501.4021, L500.2500, L100.0100 #### [facility] [address] [place], [address] Basophil percentageOrdered B y: Vadim Ng on 12-17-2024 Basophils/100 WBC (Bld) 0.3 % 0-1 [facility] CBC W/Diff, Automatedon 12-05 Absolute Lymph 1.70 X10 3/uL Normal 0.83-4.51 [facility] Comment on above: Performed By: #### L 501.4021, L500.2500, L100.0100 #### [facility] [address] [place], [address] Absolute Neut 3.8 X10 3/uL Normal 2.0-7.7 [facility] Comment on above: Performed By: #### L 501.4021, L500.2500, L100.0100 #### [facility] [address] [place], [address] Basophils/100 WBC (Bld) 0.3 % Normal 0-1 [facility] Comment on above: Performed By: #### L 501.4021, L500.2500, L100.0100 #### [facility] [address] [place], [address] Eosinophils/100 WBC (Bld) 1.0 % Normal 0-5 [facility] Comment on above: Performed By: #### L 501.4021, L500.2500, L100.0100 #### [facility] [address] [place], [address] Erythrocyte distribution width (RBC) [Ratio] 13.9 % Normal 11.6-14.6 [facility] Comment on above: Performed By: #### L 501.4021, L500.2500, L100.0100 #### [facility] [address] [place], [address] Hematocrit (Bld) [Volume fraction] 44.3 % Normal 40-54 [facility] Comment on above: Performed By: #### L 501.4021, L500.2500, L100.0100 #### [facility] [address] [place], [address] Hemoglobin (Bld) [Mass/Vol] 14.7 g/dL Normal 13.0-16.5 [facility] Comment on above: Performed By: #### L 501.4021, L500.2500, L100.0100 #### [facility] [address] [place], [address] IG% 0.300 Normal 0.0-0.9 [facility] Comment on above: Result Comment: IG% - Immature Granulocytes (promyelocytes, myelocytes and metamyelocytes) > 1% indicates that a LEFT SHIFT is Present. Performed By: #### L 501.4021, L500.2500, L100.0100 #### [facility] [address] [place], [address] Lymphocytes/100 WBC (Bld) 27.4 % Normal 19-41 [facility] Comment on above: Performed By: #### L 501.4021, L500.2500, L100.0100 #### [facility] [address] [place], [address] MCH (RBC) [Entitic mass] 28.9 pg Normal 27.0-32.0 [facility] Comment on above: Performed By: #### L 501.4021, L500.2500, L100.0100 #### [facility] [address] [place], [address] MCHC (RBC) [Mass/Vol] 33.2 g/dL Normal 32-36 [facility] Comment on above: Performed By: #### L 501.4021, L500.2500, L100.0100 #### [facility] [address] [place], [address] MCV (RBC) [Entitic vol] 87.2 fL Normal 80-94 [facility] Comment on above: Performed By: #### L 501.4021, L500.2500, L100.0100 #### [facility] [address] [place], [address] Monocytes/100 WBC (Bld) 9.4 % Normal 0-10 [facility] Comment on above: Performed By: #### L 501.4021, L500.2500, L100.0100 #### [facility] [address] [place], [address] Neutrophils/100 WBC (Bld) 61.6 % Normal 47-70 [facility] Comment on above: Performed By: #### L 501.4021, L500.2500, L100.0100 #### [facility] [address] [place], [address] Nucleated RBC (Bld) [#/Vol] 0 10*3/uL Normal 0-5 [facility] Comment on above: Performed By: #### L 501.4021, L500.2500, L100.0100 #### [facility] [address] [place], [address] Platelet mean volume (Bld) [Entitic vol] 9.4 fL Normal 6.2-12.0 [facility] Comment on above: Performed By: #### L 501.4021, L500.2500, L100.0100 #### [facility] [address] [place], [address] Platelets (Bld) [#/Vol] 189 10*3/uL Normal 150-450 [facility] Comment on above: Performed By: #### L 501.4021, L500.2500, L100.0100 #### [facility] [address] [place], [address] RBC (Bld) [#/Vol] 5.08 10*6/uL Normal 4.6-6.2 [facility] Comment on above: Performed By: #### L 501.4021, L500.2500, L100.0100 #### [facility] [address] [place], [address] RDW SD 45.0 fl High 35.1-43.9 [facility] Comment on above: Performed By: #### L 501.4021, L500.2500, L100.0100 #### [facility] [address] [place], [address] WBC (Bld) [#/Vol] 6.2 10*3/uL Normal 4.4-11.0 [facility] Comment on above: Performed By: #### L 501.4021, L500.2500, L100.0100 #### [facility] [address] [place], [address] Carbon dioxide, total [Moles /volume] in Central venous bloodOrdered By: Vadim Ng on 12-17-2024 CO2 [Moles/Vol] 21.0 mmol/L 21.0-32.0 [facility] Chloride assayOrdered By: Dary Ng on 12-17-2024 Chloride [Moles/Vol] 108 mmol/L 98-108 [facility] Emergency Department Summary on 12-17-2024 Emergency Department Summary [facility] Medical Records Department [address] [place] [address] Emergency Department Summary 12/17/24 MR#: [id number] Acct: [id number] Name: SIVAN TAMAYO Rep #: [id number] : 1970 54 From: Vadim Ng DO PCP: Dr. Wes Gates MD Status:DEP ER Location: ED HPI History of Present Illness Chief Complaint: Dizziness Detail of Chief Complaint: Dizziness Informant: patient Narrative Narrative: Patient presents to the emergency department complaint of dizziness that started earlier this afternoon. Patient states that he was outside using the weedeater when he got very weak and lightheaded and had to sit down. He had been outside for about an hour. It was very hot out. He thinks he got overheated. Patient then went and got into the pool and his gave him some water and then he started to vomit. Vomited twice and then try to eat something and vomited 2 times more. He denies any abdominal pain. He denies fever or recent illness. Patient had 3 cardiac stents placed a year and a half ago. He denies any chest pain today with these symptoms. He states that over the last week he has had some occasional discomfort in his chest from time to time. He states that he was told not to worry about it since he had his stents put in that he could have some occasional discomfort. Currently just feels lightheaded. [facility] Medical History (Updated 12/17/24 @ 22:[address] Vadim Ng, ) Diabetes mellitus, type II ADD (attention deficit disorder) HTN (hypertension) Home Medications ???Medication ???Instructions ???Recorded ???Last Taken ???Type dextroamphetamine-amp hetamine 30 30 mg PO DAILY 01/09/14 01/23/14 H istory mg tablet (Adderall) aspirin 81 mg tablet,delayed 81 mg PO DAILY ##30 01/11/1401/23 Rx release (Ecotrin Low Strength) metformin 500 mg tablet 500 mg PO DAILYCM ##30 01/11/14 Un known Rx cholecalciferol (vitamin D3) 50 2,000 unit PO DAILY 01/23/14 Unkno wn History mcg (2,000 unit) tablet (Vitamin D3) losartan 25 mg tablet 25 mg PO DAILY 01/23/14 01/31/15 0 7:15 History multivitamin with folic acid 400 1 tab PO DAILY 01/23/14 Unknown Hi story mcg tablet (Thera) Allergy/AdvReac Type Severity Reaction Status Date / Time lisinopril Allergy Angioedema Verified 12/17/24 19:19 Surgical History (Updated 12/17/24 @ 19:16 by Lourdes Ames) Hx of heart artery stent Social History Smoking Status: Never smoker ROS ROS ED Review of Systems ROS Unobtainable: other Constitutional Constitutional ED: Reports lethargy; Denies chills, fever(s), sweats or weight loss Eyes Eyes: Denies blurry vision, change in vision or diplopia ENT ENT ED: Denies rhinorrhea or sore throat Cardiovascular Cardiovascular: Reports chest pain; Denies orthopnea or racing heartbeat Respiratory/Chest Respiratory/Chest: Denies cough, dyspnea, dyspnea on exertion, orthopnea or sputum Gastrointestinal Gastrointestinal: Reports nausea and vomiting; Denies abdominal pain or diarrhea Genitourinary Genitourinary ED: Denies dysuria, hematuria or urinary frequency Musculoskeletal Musculoskeletal: Denies arthralgias, back pain, myalgias or neck pain Integumentary Denies abscess, Abrasions or rash Neurologic Neurologic: Reports weakness and other Details: Lightheadedness ; Denies headache(s) Psychiatric Psychiatric: Denies anxiety, depression or suicidal thoughts Endocrine Endocrinology: Denies polydipsia, polyphagia or polyuria Hematologic/Lymphatic Hematologic/Lymphatic : Denies easy bleeding, easy bruising or lymphadenopathy Allergic/Immunologic Allergic/Immunologic ED: Denies mouth swelling, tongue swelling or urticaria EXAM Physical Exam Const Vital Signs: 12/17/24 16:45 12/17/24 18:44 12/17/24 20:00 Temperature 98.9 F Temperature Source Oral Pulse Rate 124 H 73 80 Pulse Rate [Lying] Pulse Rate [Sitting (for 1 minute prior to obtaining)] Pulse Rate [Standing (for 1 minute prior to obtaining)] Respiratory Rate 18 11 L 16 Blood Pressure 146/100 H 149/90 H 156/98 H Blood Pressure [Lying] Blood Pressure [Sitting (for 1 minute prior to obtaining)] Blood Pressure [Standing (for 1 minute prior to obtaining)] Blood Pressure Mean 115 109 117 Blood Pressure Mean [Lying] Blood Pressure Mean [Sitting (for 1 minute prior to obtaining)] Blood Pressure Mean [Standing (for 1 minute prior to obtaining)] Pulse Ox 96 98 97 Oxygen Delivery Method Room Air Room Air Room Air 12/17/24 20:00 12/17/24 20:30 12/17/24 20:31 Temperature Temperature Source Pulse Rate 79 78 Pulse Rate [Lying] 81 Pulse Rate [Sitting (for 1 minute prior to obtaining)] 88 Pulse Rate [Standing (for 1 minute prior to obtaining)] 84 Respiratory Rate 28 H 12 Blood Pres (more content not included)... Normal [facility] Eosinophil percentageOrdered By: Vadim Ng on 12-17-2024 Eosinophils/100 WBC (Bld) 1.0 % 0-5 [facility] Erythrocyte distribution wid th ratioOrdered By: Vadim Ng on 12-17-2024 Erythrocyte distribution width (RBC) [Ratio] 13.9 % 11.6-14.6 [facility] Erythrocyte distribution wid th standard deviationOrdered By: Vadim Ng on 12-17-2024 Erythrocyte distribution width (RBC) [Ratio] 45.0 fl High 35.1-43.9 [facility] Glomerular filtration rate ( GFR) estimation/1.73 sq m using serum, plasma, or whole bOrdered By: Vadim Ng on 12-17-2024 GFR/1.73 sq M.predicted among non-blacks MDRD (S/P/Bld) [Vol rate/Area] 94 mL/min/{1.73_m2} >60 [facility] Comment on above: mL/min/1.73m2 CKD-EP I Creatinine Equation (2020) Hematocrit Auto (Bld) [Volum e fraction]Ordered By: Vadim Ng on 12-17-2024 Hematocrit (Bld) [Volume fraction] 44.3 % 40-54 [facility] Hemoglobin measurementOrdere d By: Vadim Ng on 12-17-2024 Hemoglobin (Bld) [Mass/Vol] 14.7 g/dL 13.0-16.5 [facility] Immature granulocytes/100 WB C Auto (Bld)Ordered By: Vadim Ng on 12-17-2024 Immature granulocytes/100 WBC (Bld) 0.300 % 0.0-0.9 [facility] Comment on above: IG% - Immature Granu locytes (promyelocytes, myelocytes and metamyelocytes) > 1% indicates that a LEFT SHIFT is Present. L499.0042on 12-17-2024 Trop T High Sen < 6 Normal <=22 [facility] Comment on above: Performed By: #### L 499.0042 #### [facility] [address] [place], [place], [id number] L499.0043on 12-17-2024 Trop T High Sen Normal <=22 [facility] Comment on above: Result Comment: Canc elled via OM: Order cancelled - Patient discharged Performed By: #### L 499.0043 #### [facility] [address] [place], [address] L501.4021on 12-17-2024 Trop T High Sen < 6 Normal <=22 [facility] Comment on above: Performed By: #### L 501.4021, L500.2500, L100.0100 #### [facility] [address] [place], [address] MCV (mean corpuscular volume ) determinationOrdered By: Vadim Ng on 12-17-2024 MCV (RBC) [Entitic vol] 87.2 fL 80-94 [facility] Mean corpuscular hemoglobin (MCH) determinationOrdered By: Vadim Ng on 12-17-2024 MCH (RBC) [Entitic mass] 28.9 pg 27.0-32.0 [facility] Mean corpuscular hemoglobin concentration (MCHC) determinationOrdered By: Vadim Ng on 12-17-2024 MCHC (RBC) [Mass/Vol] 33.2 g/dL 32-36 [facility] Mean platelet volume determi nationOrdered By: Vadim Ng on 12-17-2024 Platelet mean volume (Bld) [Entitic vol] 9.4 fL 6.2-12.0 [facility] Monocyte percentageOrdered B y: Vadim Ng on 12-17-2024 Monocytes/100 WBC (Bld) 9.4 % 0-10 [facility] Neutrophil percentageOrdered By: Vadim Ng on 12-17-2024 Neutrophils/100 WBC (Bld) 61.6 % 47-70 [facility] Nucleated red blood cell per centageOrdered By: Vadim Ng on 12-17-2024 Nucleated RBC/100 WBC (Bld) [Ratio] 0 % 0-5 [facility] Platelet countOrdered By: Dary Ng on 12-17-2024 Platelets (Bld) [#/Vol] 189 10*3/uL 150-450 [facility] Potassium measurement (mass/ volume)Ordered By: Vadim Ng on 12-17-2024 Potassium (Unsp spec) [Mass/Vol] 4.0 mmol/L 3.3-5.1 [facility] RBC Auto (Bld) [#/Vol]Ordere d By: Vadim Jeffersonconsuelo on 12-17-2024 RBC (Bld) [#/Vol] 5.08 10*6/uL 4.6-6.2 [facility] Serum creatinine measurement (mass/volume)Ordered By: Vadim Berenice on 12-17-2024 Creatinine [Mass/Vol] 0.97 mg/dL 0.70-1.20 [facility] Serum glucose measurement (m ass/volume)Ordered By: Monaeus Ng on 12-17-2024 Glucose [Mass/Vol] 75 mg/dL 70-99 [facility] Serum or plasma calcium mary urement (mass/volume)Ordered By: Monaeus Ng on 12-17-2024 Calcium [Mass/Vol] 9.0 mg/dL 7.6-11.0 [facility] Serum or plasma urea nitroge n measurement (mass/volume)Ordered By: Monaeus Ng on 12-17-2024 Urea nitrogen [Mass/Vol] 23 mg/dL High 4-19 [facility] Sodium levelOrdered By: Monaeester junior Berenice on 12-17-2024 Sodium [Moles/Vol] 141 mmol/L 133-145 [facility] Troponin T.cardiac [Mass/vol ume] in Serum or Plasma by High sensitivity methodOrdered By: Vadim Berenice on 12-17-2024 Troponin T.cardiac High sensitivity method [Mass/Vol] < 6 ng/L <22 [facility] Troponin T.cardiac High sensitivity method [Mass/Vol] < 6 ng/L <22 [facility] White blood cell (WBC) count Ordered By: Vadim Jeffersonconsuelo on 12-17-2024 WBC (Bld) [#/Vol] 6.2 10*3/uL 4.4-11.0 [facility] [id number] 11-17-2024 [id number] HNO ID: [id number] Author: DEVAUGHN CHEN PT Service: ? Author Type: Physical Therapist Type: [id number] Filed: 11/17/2024 16:24 Note Text: [facility] Therapy Physical Therapy Plan of Care Certification Patient Name: Sivan Tamayo : 1970 [facility] #: [id number] Date: 11/17/2024 To: Wes Gates MD From Therapist: Devaughn Chen PT RE: Patient Certification/ Recertification Your review, approval and electronic signature are required in order to comply with Payor: [place] [employer] / Plan: [facility] MEDICAID / Product Type: Medicaid / regulations. [...] Goals for Episode of Care: established 08/31/24 [place] in home exercise program. Met Patient will [...] Patient to be seen for Therapeutic exercise (18798), Manual therapy (54372), Neuromuscular re-education (49712), Therapeutic activities (13426), Self-long-term management (16920), [facility] Education, Body Mechanics Training PLAN FOR NEXT VISIT: For further details regarding this patient refer to the Physical Therapy electronically documented visit dated 11/17/2024. Provider Attestation I have reviewed the treatment plan for Sivan Tamayo, [facility]# [id number] for the period of 11/17/24 -- 01/17/25, established on 11/17/2024. Signature certifies the need for therapy services. Normal [facility] CNTHERAPYon 11-17-2024 CNTHERAPY OT/PT/Speech Visit (PTWS) SIVAN TAMAYO ([id number]) 1970 M Date Time Provider Department 11/17/24 2:30 PM DEVAUGHN CHEN PTCARMEN Date Time Provider Department Center 11/17/2024 2:30 PM [id number], SEAN PTWS [facility] Reason for Visit: [...] 1 tablet by mouth once daily. Normal [facility] CNOVon 11-03-2024 CN Office Visit (CHICHI ) SIVAN TAMAYO ([id number]) 1970 M Date Time Provider Department 11/03/24 11:30 AM PREETHI CAUSEY During your visit today, we recorded the following information about you: Blood pressure Weight Height 100/62 118.3 kg 1.829 m Preethi Causey APRN.WHEAT SHIPPER 11/03/2024 1:50 PM Signed [facility] [place] Mariah Torres Department of Cardiovascular Medicine SECTION OF CLINICAL CARDIOLOGY OUTPATIENT VISIT DATE November 03, 2024 OUTPATIENT VISIT TYPE ESTABLISHED PRIMARY CARE PHYSICIAN: Wes Gates [address] [place] [address] REFERRING PHYSICIAN: No referring provider defined for [...] with protein and creamer. He is a bpuy-aw-ujrh grandparent, caring for his grandchildren, ages 10, [...] deficit disorder) 08/28/2011 Coronary artery disease involving [place] coronary artery of [place] heart with unstable angina pectoris (HCC) Diabetes [...] (BP Po (more content not included)... Normal [facility] LII09gi 11-03-2024 ECG01 Ventricular Rate : 9 1 BPM Atrial Rate : 91 BPM P-R Interval : 188 ms QRS Duration : 92 ms Q-T Interval : 346 ms QTC Calculation(Bazett) : 425 ms Calculated P Alpine : 42 degrees Calculated R Alpine : 18 degrees Calculated T Alpine : 34 degrees NORMAL SINUS RHYTHM NORMAL ECG Confirmed by MD DORCAS, HAILEE ([id number]) on 11/07/2024 2:39:12 PM NAME : SIVAN TAMAYO PID : [id number] : 1970 Gender : Male Race : ORD : Procedure Date : Nov 03 2024 11:27:12 Edit Date : Nov 07 2024 14:39:16 Diagnosis: NORMAL SINUS RHYTHM NORMAL ECG Confirmed by MD TOSCANO QARAB ([id number]) on 11/07/2024 2:39:12 PM Test Reason : Location : 211 : [facility] Overread By : MD TOSCANO QARAB Edited By : MD TOSCANO QARAB Referred By : Preethi Causey Acquired by : Lisa Lewis [facility] CNTHERAPYon 10-24-2024 CNTHERAPY OT/PT/Speech Visit (PTWS) SIVAN TAMAYO Beatrice ([id number]) 1970 M Date Time Provider Department 10/24/24 12:30 PM DEVAUGHN CHEN PTWS Date Time Provider Department Center 10/24/2024 12:30 PM [id number], SEAN PTWS [facility] Reason for Visit: Physical Therapy [503] Primary [...] 1 tablet by mouth once daily. Normal [facility] CNTHERAPYon 10-03-2024 CNTHERAPY OT/PT/Speech Visit (PTWS) SIVAN TAMAYO ([id number]) 1970 M Date Time Provider Department 10/03/24 12:30 PM DEVAUGHN CHEN PTWS Date Time Provider Department [place] 10/03/2024 12:30 PM [id number], SEAN PTWS [facility] Reason for Visit: [...] Take 1 tablet by mouth once daily. Differential Specialist: Addendum Therapy (PT/OT/Speech/Resp) ID: [id number] 10/03/2024 12:41 PM Author: DEVAUGHN CHEN Signed by DEVAUGHN CHEN PT on 10/03/2024 at 12:41 PM * * * This document replaces document [id number] * * * Document text: Program_ID:[id number] Access Code: [email or web address] URL: [email or web address] Date: 10-03-2024 Prepared By: Devaughn Chen Program [...] weekly - 3 sets - 10 reps ----- Normal [facility] THERAPY NTon 10-03-2024 THERAPY NT HNO ID: [id number] Author: DEVAUGHN CHEN PT Service: ? Author Type: Physical Therapist Type: Therapy (PT/OT/Speech/Resp) Filed: 10/03/2024 12:41 Note Text: Program_ID:[id number] Access Code: [email or web address] URL: [email or web address] Date: 10-03-2024 Prepared By: Devaughn Chen Program [...] - 3 sets - 10 reps Normal [facility] CNTHERAPYon 09-19-2024 CNTHERAPY OT/PT/Speech Visit (PTWS) SIVAN TAMAYO ([id number]) 1970 M Date Time Provider Department 09/19/24 11:30 AM DEVAUGHN CHEN PTCARMEN Date Time Provider Department Center 09/19/2024 11:30 AM [id number], SEAN PTCARMEN Aletha Carr Reason for Visit: Physical Therapy [...] Take 1 tablet by mouth once daily. Differential Specialist: Addendum Therapy (PT/OT/Speech/Resp) ID: [id number] 09/19/2024 12:12 PM Author: DEVAUGHN CHEN Signed by DEVAUGHN CHEN PT on 09/19/2024 at 12:12 PM * * * This document replaces document [id number] * * * Document text: Program_ID:[id number] Access Code: [email or web address] URL: [email or web address]/ Date: 09-19-2024 Prepared By: Devaughn Chen Program [...] weekly - 3 sets - 10 reps ----- Normal [facility] THERAPY NTon 09-19-2024 THERAPY NT HNO ID: [id number] Author: DEVAUGHN CHEN PT Service: ? Author Type: Physical Therapist Type: Therapy (PT/OT/Speech/Resp) Filed: 09/19/2024 12:12 Note Text: Program_ID:[id number] Access Code: [email or web address] URL: [email or web address]/ Date: 09-19-2024 Prepared By: Devaughn Chen Program [...] - 3 sets - 10 reps Normal [facility] CNTHERAPYon 09-05-2024 CNTHERAPY OT/PT/Speech Visit (PTWS) SIVAN TAMAYO ([id number]) 1970 M Date Time Provider Department 09/05/24 3:45 PM DEVAUGHN CHEN PTWS Date Time Provider Department Center 09/05/2024 3:45 PM [id number], SEAN PTWS Aletha Carr Reason for Visit: [...] 1 tablet by mouth once daily. Normal [facility] [id number] 08-31-2024 [id number] HNO ID: [id number] Author: DEVAUGHN CHEN PT Service: ? Author Type: Physical Therapist Type: [id number] Filed: 08/31/2024 15:45 Note Text: [facility] Rehabilitation [facility] Sports Therapy Physical Therapy Plan of Care Certification Patient Name: Sivan Tamayo : 1970 [facility] #: [id number] Date: 08/31/2024 To: Wes Gates MD From Therapist: Devaughn Chen PT RE: Patient Certification/ Recertification Your review, approval and electronic signature are required in order to comply with Payor: [place] MEDICA[employer] / Plan: [facility] MEDICAID / Product Type: Medicaid / regulations. [...] Goals for Episode of Care: established 08/31/24 [place] in home exercise program. Patient will decrease [...] Planned: 4 Planned Treatment Interventions: Therapeutic exercise (00378), Neuromuscular re-education (73261), Manual therapy (50694), Therapeutic activities (72461), Self-long-term management (44930), Patient/Family/Caregi timoteo Education, Body Mechanics Training PLAN FOR NEXT VISIT: Assess carry over of HEP, manual to Tiny khoury DR's Patient demonstrates good understanding of plan of care and treatment. The above goals and plan of care were discussed and agreed upon by patient/family. For further details regarding this patient refer to the Physical Therapy electronically documented visit dated 08/31/2024. Provider Attestation I have reviewed the treatment plan for Sivan Tamayo, [facility]# [id number] for the period of 08/31/24 -- 10/31/24, established on 08/31/2024. Signature certifies the need for therapy services. Normal [facility] CNTHERAPYon 08-31-2024 CNTHERAPY OT/PT/Speech Visit (PTWS) SIVAN TAMAYO ([id number]) 1970 M Date Time Provider Department 08/31/24 11:30 AM DEVAUGHN CHEN PTCARMEN Date Time Provider Department Center 08/31/2024 11:30 AM [id number], SEAN PTCARMEN Carr Reason for Visit: PT Eval [747] Primary Visit Diagnosis:Acute pain of right shoulder [M25.511] Other Visit Diagnosis:Bilateral hip pain [M25.551, M25.552] Allergies As of Date: 08/31/2024 Noted Allergy Reaction AMLODIPINE 04/24/2023 14 - Other: See Comments Comments: Facial numbness Date Reviewed: 08/14/2024 Reviewed by: Margarita Gna LPN - Fully Assessed Prescriptions as of [...] Take 1 tablet by mouth once daily. Differential Specialist: Therapy (PT/OT/Speech/Resp) ID: [id number] 08/31/2024 12:13 PM Author: DEVAUGHN CHEN Signed by DEVAUGHN CHEN PT on 08/31/2024 at 12:13 PM Document text: Program_ID:[id number] Access Code: [email or web address] URL: [email or web address]/ Date: 08-31-2024 Prepared By: Devaughn Chen Program [...] weekly - 3 sets - 10 reps ----- Normal [facility] THERAPY NTon 08-31-2024 THERAPY NT HNO ID: [id number] Author: DEVAUGHN CHEN PT Service: ? Author Type: Physical Therapist Type: Therapy (PT/OT/Speech/Resp) Filed: 08/31/2024 12:13 Note Text: Program_ID:[id number] Access Code: [email or web address] URL: [email or web address]/ Date: 08-31-2024 Prepared By: Devaughn Chen Program [...] - 3 sets - 10 reps Normal [facility] CNPNon 08-28-2024 CNPN Telephone (JOHNATHON) SIVAN TAMAYO ([id number]) 1970 Date Time Provider Department 08/28/24 WES GATES During your visit today, we [...] mg /0.5 ml dose for review. KAN Turk, Wes Barron MD 08/28/2024 2:48 PM Signed sent Allergies [...] [E66.812] 04/26/2023 06/23/2024 Coronary artery disease involving twin hills strat[place]*04/27/2023 Mixed hyperlipidemia [E78.2] 04/27/2023 S/P angioplasty with stent [Z95.820] 05/10/2023 Obesity, Class I, BMI 30-34.9 [E66.811] 05/11/2023 06/23/2024 Prescriptions ordered this encounter Disp Refills Start End DULAGLUTIDE 3 MG/0.5 ML SUBCUTANEOUS* 2 mL 11 08/28/2024 08/28/2025 Route: SUBCUTANEOUS Sig: Inject 3 mg subcutaneously one time a week. 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 Normal [facility] XR HIP LEANA 5V PEL+ AP/LAT EA [...] 1. Moderate osteoarthrosis of the bilateral hips Plate Finisher: [facility] Transcribe Date/Time: Aug 16 2024 5:27P Dictated by : ANTHONY DILLON MD This examination was interpreted and the report reviewed and electronically signed by: NATHONY DILLON MD on Aug 16 2024 5:27PM EST [id number] Normal [facility] XR SHLDR >/=3V AP/DENIS AP/OTH R RTon [...] 1. Mild osteoarthrosis of the right shoulder Plate Finisher: [facility] Transcribe Date/Time: Aug 16 2024 5:26P Dictated by : ANTHONY DILLON MD This examination was interpreted and the report reviewed and electronically signed by: ANTHONY DILLON MD on Aug 16 2024 5:27PM EST [id number] N Normal [facility] CNOVon 06-23-2024 CNOV Office Visit (FAMPWS ) SIVAN TAMAYO ([id number]) 1970 M Date Time Provider Department 06/23/24 10:40 AM [facility] visit today, we recorded the [...] medication may not be the best for mcfp use. HLD: No myalgias. Follows with Cardiology. 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 Normal [facility] ALBUMIN/CREATININE RATIO, UR INEon 06-19-2024 Albumin DL <= 20 mg/L (U) [Mass/Vol] mg/dL Normal [facility] Comment on above: Order Comment: Speci men Type: BLOOD SPECIMEN [facility]ing Facility: [facility] Address: [address] [place] [address] Performed By: #### 2 276-, 2132-02 #### [facility] CLIA [id number] [address] [place] [address] [place] Albumin/Creatinine (U) [Mass ratio] <7 Normal <30 [facility] Comment on above: Order Comment: Speci men Type: BLOOD SPECIMEN Ordering Facility: [facility] Address: [address] [place] [address] Result Comment: Adul t Male and Female Nephrotic Criteria: <30 mg/g is considered normal to mildly increased 30-300 mg/g is considered moderately increased >300 mg/g is considered severely increased KDIGO. (2013). KDIGO 2012 Clinical Practice Guideline for the Evaluation and Management of Chronic Kidney Disease. Official Journal of the International Society of Nephrology, 3(1), 1-150. Performed By: #### 2 276-4, 2132-02 #### [facility] CLIA [id number] [address] [place] [address] [place] Creatinine (U) [Mass/Vol] 180.3 mg/dL Normal 20.0-300.0 [facility] Comment on above: Order Comment: Speci men Type: BLOOD SPECIMEN Ordering Facility: [facility] Address: [address] [place] [address] Performed By: #### 2 276-4, 2132-02 #### [facility] CLIA [id number] [address] [place] [address] [place] CBC W Auto Differential pane l (Bld)on 06-19-2024 Basophils (Bld) [#/Vol] 10*3/uL Normal <0.11 [facility] Comment on above: Order Comment: Speci men Type: BLOOD SPECIMENOrdering Facility: [facility] Address: [address] [place] [address] Performed By: #### 5 7021-8 ####[facility] [id number] [place] [address] [place] Basophils/100 WBC (Bld) 0.4 % Normal [facility] Comment on above: Order Comment: Speci men Type: BLOOD SPECIMENOrdering Facility: [facility] Address: [address] [place] [address] Performed By: #### 5 7021-8 ####[facility]CLIA [id number] [place] [address] [place] Differential cell count method Nom (Bld) Auto Normal [facility] Comment on above: Order Comment: Speci men Type: BLOOD SPECIMENOrdering Facility: [facility] Address: [address] [place] [address] Performed By: #### 5 7021-8 ####[facility]CLIA [id number] [place] [address] [place] Eosinophils (Bld) [#/Vol] 0.16 10*3/uL Normal <0.46 [facility] Comment on above: Order Comment: Speci men Type: BLOOD SPECIMENOrdering Facility: [facility] Address: [address] [place] [address] Performed By: #### 5 7021-8 ####[facility]CLIA [id number] [place] [address] [place] Eosinophils/100 WBC (Bld) 3.5 % Normal [facility] Comment on above: Order Comment: Speci men Type: BLOOD SPECIMENOrdering Facility: [facility] Address: [address] [place] [address] Performed By: #### 5 7021-8 ####[facility]IA [id number] [place] [address] [place] Erythrocyte distribution width (RBC) [Ratio] 13.2 % Normal 11.5-15.0 [facility] Comment on above: Order Comment: Speci men Type: BLOOD SPECIMENOrdering Facility: [facility] Address: [address] [place] [address] Performed By: #### 5 7021-8 ####[facility]IA [id number] [place] [address] [place] Hematocrit (Bld) [Volume fraction] 46.1 % Normal 39.0-51.0 [facility] Comment on above: Order Comment: Speci men Type: BLOOD SPECIMENOrdering Facility: [facility] Address: [address] [place] [address] Performed By: #### 5 7021-8 ####[facility]IA [id number] [place] [address] [place] Hemoglobin (Bld) [Mass/Vol] 15.1 g/dL Normal 13.0-17.0 [facility] Comment on above: Order Comment: Speci men Type: BLOOD SPECIMENOrdering Facility: [facility] Address: [address] [place] [address] Performed By: #### 5 7021-8 ####[facility]IA [id number] [place] [address] [place] Immature granulocytes (Bld) [#/Vol] 10*3/uL Normal <0.10 [facility] Comment on above: Order Comment: Speci men Type: BLOOD SPECIMENOrdering Facility: [facility] Address: [address] [place] [address] Performed By: #### 5 7021-8 ####[facility]CLIA [id number] [place] [address] [place] Immature granulocytes/100 WBC (Bld) 0.2 % Normal [facility] Comment on above: Order Comment: Speci men Type: BLOOD SPECIMENOrdering Facility: [facility] Address: [address] [place] [address] Performed By: #### 5 7021-8 ####[facility]CLIA [id number] [place] [address] [place] Lymphocytes (Bld) [#/Vol] 1.49 10*3/uL Normal 1.00-4.00 [facility] Comment on above: Order Comment: Speci men Type: BLOOD SPECIMENOrdering Facility: [facility] Address: [address] [place] [address] Performed By: #### 5 7021-8 ####[facility]CLIA [id number] [place] [address] [place] Lymphocytes/100 WBC (Bld) 32.4 % Normal [facility] Comment on above: Order Comment: Speci men Type: BLOOD SPECIMENOrdering Facility: [facility] Address: [address] [place] [address] Performed By: #### 5 7021-8 ####[facility]IA [id number] [place] [address] [place] MCH (RBC) [Entitic mass] 29.0 pg Normal 26.0-34.0 [facility] Comment on above: Order Comment: Speci men Type: BLOOD SPECIMENOrdering Facility: [facility] Address: [address] [place] [address] Performed By: #### 5 7021-8 ####[facility]CLIA [id number] [place] [address] [place] MCHC (RBC) [Mass/Vol] 32.8 g/dL Normal 30.5-36.0 [facility] Comment on above: Order Comment: Speci men Type: BLOOD SPECIMENOrdering Facility: [facility] Address: [address] [place] [address] Performed By: #### 5 7021-8 ####[facility]CLIA [id number] [place] [address] [place] MCV (RBC) [Entitic vol] 88.5 fL Normal 80.0-100.0 [facility] Comment on above: Order Comment: Speci men Type: BLOOD SPECIMENOrdering Facility: [facility] Address: [address] [place] [address] Performed By: #### 5 7021-8 ####[facility]IA [id number] [place] [address] [place] Monocytes (Bld) [#/Vol] 0.43 10*3/uL Normal <0.87 [facility] Comment on above: Order Comment: Speci men Type: BLOOD SPECIMENOrdering Facility: [facility] Address: [address] [place] [address] Performed By: #### 5 7021-8 ####[facility]IA [id number] [place] [address] [place] Monocytes/100 WBC (Bld) 9.3 % Normal [facility] Comment on above: Order Comment: Speci men Type: BLOOD SPECIMENOrdering Facility: [facility] Address: [address] [place] [address] Performed By: #### 5 7021-8 ####[facility]IA [id number] [place] [address] [place] Neutrophils (Bld) [#/Vol] 2.49 10*3/uL Normal 1.45-7.50 [facility] Comment on above: Order Comment: Speci men Type: BLOOD SPECIMENOrdering Facility: [facility] Address: [address] [place] [address] Performed By: #### 5 7021-8 ####[facility]CLIA [id number] [place] [address] [place] Neutrophils/100 WBC (Bld) 54.2 % Normal [facility] Comment on above: Order Comment: Speci men Type: BLOOD SPECIMENOrdering Facility: [facility] Address: [address] [place] [address] Performed By: #### 5 7021-8 ####[facility]CLIA [id number] [place] [address] [place] Nucleated RBC (Bld) [#/Vol] 10*3/uL Normal <0.01 [facility] Comment on above: Order Comment: Speci men Type: BLOOD SPECIMENOrdering Facility: [facility] Address: [address] [place] [address] Performed By: #### 5 7021-8 ####[facility]IA [id number] [place] [address] [place] Nucleated RBC/100 WBC (Bld) [Ratio] 0.0 /100 WBC Normal [facility] Comment on above: Order Comment: Speci men Type: BLOOD SPECIMENOrdering Facility: [facility] Address: [address] [place] [address] Performed By: #### 5 7021-8 ####[facility]IA [id number] [place] [address] [place] Platelet mean volume (Bld) [Entitic vol] 9.6 fL Normal 9.0-12.7 [facility] Comment on above: Order Comment: Speci men Type: BLOOD SPECIMENOrdering Facility: [facility] Address: [address] [place] [address] Performed By: #### 5 7021-8 ####[facility]IA [id number] [place] [address] [place] Platelets (Bld) [#/Vol] 200 10*3/uL Normal 150-400 [facility] Comment on above: Order Comment: Speci men Type: BLOOD SPECIMENOrdering Facility: [facility] Address: [address] [place] [address] Performed By: #### 5 7021-8 ####[facility]CLIA [id number] [place] [address] [place] RBC (Bld) [#/Vol] 5.21 10*6/uL Normal 4.20-6.00 [facility] Comment on above: Order Comment: Speci men Type: BLOOD SPECIMENOrdering Facility: [facility] Address: [address] [place] [address] Performed By: #### 5 7021-8 ####[facility]CLIA [id number] [place] [address] [place] WBC (Bld) [#/Vol] 4.60 10*3/uL Normal 3.70-11.00 [facility] Comment on above: Order Comment: Speci men Type: BLOOD SPECIMENOrdering Facility: [facility] Address: [address] [place] [address] Performed By: #### 5 7021-8 ####[facility] [id number] [place] [address] [place] Comprehensive metabolic 2000 panelon 06-19-2024 Albumin [Mass/Vol] 4.3 g/dL Normal 3.9-4.9 [facility] Comment on above: Order Comment: Speci men Type: BLOOD SPECIMENOrdering Facility: [facility] Address: [address] [place] [address] Performed By: #### 2 4331-1, 17912-2 ####[facility]CLIA [id number] [place] [address] [place] ALP [Catalytic activity/Vol] 93 U/L Normal 38-113 [facility] Comment on above: Order Comment: Speci men Type: BLOOD SPECIMENOrdering Facility: [facility] Address: [address] [place] [place] [id number] Performed By: #### 2 4331-1, 19184-6 ####[facility]CLIA [id number] [place] [id number] [place] ALT [Catalytic activity/Vol] 24 U/L Normal 10-54 [facility] Comment on above: Order Comment: Speci men Type: BLOOD SPECIMENOrdering Facility: [facility] Address: [address] [place], [place] [address] Performed By: #### 2 4331-1, ####[facility]CL[facility] [id number] [place] [address] [place] Anion gap [Moles/Vol] 11 mmol/L Normal 8-15 [facility] Comment on above: Order Comment: Speci men Type: BLOOD SPECIMENOrdering Facility: [facility] Address: [address] [place] [id number] Performed By: #### 2 4331-1, ####[facility] [id number] [place] [address] [place] AST [Catalytic activity/Vol] 19 U/L Normal 14-40 [facility] Comment on above: Order Comment: Speci men Type: BLOOD SPECIMENOrdering Facility: [facility] Address: [address] [place], [place] [address] Performed By: #### 2 4331-1, 91112-1 ####[facility] [id number] [place] [address] [place] Bilirubin [Mass/Vol] 0.5 mg/dL Normal 0.2-1.3 [facility] Comment on above: Order Comment: Speci men Type: BLOOD SPECIMENOrdering Facility: [facility] Address: [address] [place], [place] [address] Performed By: #### 2 4331-1, 62988-9 ####[facility]CLIA [id number] [address] [address] [place] Calcium [Mass/Vol] 8.9 mg/dL Normal 8.5-10.2 [facility] Comment on above: Order Comment: Speci men Type: BLOOD SPECIMENOrdering Facility: [facility] Address: [address] [place] [address] Performed By: #### 2 4331-1, ####[facility]CLIA [id number] [place] [id number] [place] Chloride [Moles/Vol] 105 mmol/L Normal 98-107 [facility] Comment on above: Order Comment: Speci men Type: BLOOD SPECIMENOrdering Facility: [facility] Address: [address] [place] [address] Performed By: #### 2 4331-, 54138-2 ####[facility]CLIA [id number] [place] [id number] [place] CO2 [Moles/Vol] 22 mmol/L Normal 22-30 [facility] Comment on above: Order Comment: Speci men Type: BLOOD SPECIMENOrdering Facility: [facility] Address: [address] [place] [address] Performed By: #### 2 4331-, ####[facility]CLIA [id number] [place] [id number] [place] Creatinine [Mass/Vol] 0.80 mg/dL Normal 0.73-1.22 [facility] Comment on above: Order Comment: Speci men Type: BLOOD SPECIMENOrdering Facility: [facility] Address: [address] [place] [address] Performed By: #### 2 4331-1, 60429-0 ####[facility]CLIA [id number] [place] [id number] [place] Creatinine and Glomerular filtration rate.predicted panel (S/P/Bld) 106 mL/min/1.73m??? Normal >=60 [facility] Comment on above: Order Comment: Shellie ortega Type: BLOOD SPECIMENOrdering Facility: [facility] Address: [address] [place] [address] Result Comment: Liana mated Glomerular Filtration Rate [...] actual GFR. Performed By: #### 2 4331-1, 42110-9 ####[facility]CLIA [id number] [place] [address] [place] Glucose [Mass/Vol] 158 mg/dL High 74-99 [facility] Comment on above: Order Comment: Shellie ortega Type: BLOOD SPECIMENOrdering Facility: [facility] Address: [address] [place] [address] Result Comment: The [place] Diabetes Association (ADA) provides guidance for cutoff [...] Standards of Medical Care in Diabetes 2016, [place] [employer]. Diabetes Care. 2016.39(Suppl 1). Performed By: #### 2 4331-1, 89136-3 ####[facility] LABCLIA [id number] [place] [address] [place] Potassium [Moles/Vol] 4.4 mmol/L Normal 3.7-5.1 [facility] Comment on above: Order Comment: Speci men Type: BLOOD SPECIMENOrdering Facility: [facility] Address: [address] [place] [address] Performed By: #### 2 4331-1, ####[facility]CLIA [id number] [place] [address] [place] Protein [Mass/Vol] 7.4 g/dL Normal 6.3-8.0 [facility] Comment on above: Order Comment: Speci men Type: BLOOD SPECIMENOrdering Facility: [facility] Address: [address] [place] [address] Performed By: #### 2 4331-1, 66264-7 ####[facility]CLIA [id number] [place] [address] [place] Sodium [Moles/Vol] 138 mmol/L Normal 136-144 [facility] Comment on above: Order Comment: Speci men Type: BLOOD SPECIMENOrdering Facility: [facility] Address: [address] [place] [address] Performed By: #### 2 4331-1, ####[facility] LABCLIA [id number] [place] [address] [place] Urea nitrogen [Mass/Vol] 13 mg/dL Normal 9-24 [facility] Comment on above: Order Comment: Speci men Type: BLOOD SPECIMENOrdering Facility: [facility] Address: [address] [place] [address] Performed By: #### 2 4331-1, 84914-0 ####[facility] LABCLIA [id number] [place] [address] [place] HbA1c (Bld)on 06-19-2024 Average glucose Estimated from glycated hemoglobin (Bld) [Mass/Vol] 174 mg/dL Normal [facility] Comment on above: Order Comment: Speci men Type: BLOOD SPECIMENOrdering Facility: [facility] Address: [address] [place] [address] Result Comment: eAG: (Estimated average glucose) is a calculated value from HgbA1c and is nutrition representative of the average blood glucose level in the last 2-3 month period. Performed By: #### 5 5454-3 ####[facility] LABCLIA [id number] [place] [address] [place] HbA1c (Bld) [Mass fraction] 7.7 % High 4.3-5.6 [facility] Comment on above: Order Comment: Speci men Type: BLOOD SPECIMENOrdering Facility: [facility] Address: [address] [place] [address] Result Comment: Amer ican Diabetes Association guidelines indicate that patients with HgbA1c in the range 5.7-6.4% are at increased risk for development of diabetes, and intervention by lifestyle modification may be beneficial. HgbA1c greater or equal to 6.5% is considered diagnostic of diabetes. Performed By: #### 5 5454-3 ####[facility] LABCLIA [id number] [place] [address] [place] Lipid 1996 panelon 5 Cholesterol [Mass/Vol] 123 mg/dL Normal <200 [facility] Comment on above: Order Comment: Speci men Type: BLOOD SPECIMENOrdering Facility: [facility] Address: [address] [place] [address] Result Comment: <200 mg/dL, Desirable 200-239 mg/dL, Borderline high >239 mg/dL, High Performed By: #### 2 4331-1, 24609-6 ####[facility] LABIA [id number] [place] [address] [place] Cholesterol in HDL [Mass/Vol] 36 mg/dL Low >39 [facility] Comment on above: Order Comment: Speci men Type: BLOOD SPECIMENOrdering Facility: [facility] Address: [address] [place] [address] Result Comment: 40-5 9 mg/dL, Acceptable >59 mg/dL, High: Negative risk factor for coronary heart disease <40 mg/dL, Low: Positive risk factor for coronary heart disease Performed By: #### 2 4331-1, 26152-9 ####[facility] LABCLIA [id number] [place] [address] [place] Cholesterol in LDL [Mass/Vol] 60 mg/dL Normal <100 [facility] Comment on above: Order Comment: Speci men Type: BLOOD SPECIMENOrdering Facility: [facility] Address: [address] [place] [address] Result Comment: <100 mg/dL, Optimal 100-129 mg/dL, Near optimal/above optimal 130-159 mg/dL, Borderline high 160-189 mg/dL, High >189 mg/dL, Very high Secondary prevention optimal LDL Cholesterol levels are recommended to be < 70 mg/dL Performed By: #### 2 4331-1, ####[facility] LABCLIA [id number] [address] [place] Cholesterol in LDL/Cholesterol in HDL [Mass ratio] 1.67 {ratio} Normal <2.54 [facility] Comment on above: Order Comment: Speci men Type: BLOOD SPECIMENOrdering Facility: [facility] Address: [address] [place] [address] Result Comment: Refe remigio: 1. National Cholesterol Education Program ATP III Guideline At-A-Glance Quick Desk Reference: National Heart, Lung, and Blood [place]. National Institutes of Health. 2001: NIH Publication No. 01-3305. 2. An International Atherosclerosis Society position paper: global recommendations for the management of dyslipidemia: executive summary, Atherosclerosis. 2014: 232(2):410-413. Performed By: #### 2 4331-1, 47451-1 ####[facility] LABCLIA [id number] [place] [address] [place] Cholesterol in VLDL [Mass/Vol] 27 mg/dL Normal <30 [facility] Comment on above: Order Comment: Speci men Type: BLOOD SPECIMENOrdering Facility: [facility] Address: [address] [place] [address] Performed By: #### 2 4331-1, 40916-0 ####[facility] LABCLIA [id number] [place] [address] [place] Cholesterol non HDL [Mass/Vol] 87 mg/dL Normal <130 [facility] Comment on above: Order Comment: Speci men Type: BLOOD SPECIMENOrdering Facility: [facility] Address: [address] [place] [address] Result Comment: <130 mg/dL, Optimal 130-159 mg/dL, Near optimal/above optimal 160-189 mg/dL, Borderline high 190-219 mg/dL, High >219 mg/dL, Very high Secondary prevention optimal non HDL Cholesterol levels are recommended to be <100 mg/dL Performed By: #### 2 4331-1, ####[facility] LABCLIA [id number] [place] [address] [place] Cholesterol.total/Choles terol in HDL [Mass ratio] 3.42 {ratio} Normal <5.10 [facility] Comment on above: Order Comment: Speci men Type: BLOOD SPECIMENOrdering Facility: [facility] Address: [address] [place] [address] Performed By: #### 2 4331-1, 66779-2 ####[facility] LABCLIA [id number] [place] [address] [place] FASTING TIME 12 hrs Normal [facility] Comment on above: Order Comment: Speci men Type: BLOOD SPECIMENOrdering Facility: [facility] Address: [address] [place] [address] Performed By: #### 2 4331-1, 92113-9 ####[facility] LABCLIA [id number] [place] [id number] [place] Triglyceride [Mass/Vol] 134 mg/dL Normal <150 [facility] Comment on above: Order Comment: Speci men Type: BLOOD SPECIMENOrdering Facility: [facility] Address: [address] [place] [address] Result Comment: <150 mg/dL, Normal 150-199 mg/dL, Borderline high 200-499 mg/dL, High >499 mg/dL, Very high Performed By: #### 2 4331-1, 65128-0 ####[facility] LABCLIA [id number] [facility] MANORSulema AVENUEDESK [id number] [id number] [facility] CNOVon 02-17-2024 CNOV Office Visit (CARDMM ) SIVAN TAMAYO ([id number]) 1970 [place] Date Time Provider Department 02/17/24 10:00 AM JOVANNA DUNLAP During your visit today, we recorded the following information about you: Pulse Blood pressure Weight Height 76/minute 154/82 123.5 kg 1.829 m Jovanna Dunlap DO 02/17/2024 10:36 AM Signed [facility] Mariah Torres Department of Cardiovascular Medicine SECTION OF [facility] CARDIOLOGY/[facility] OUTPATIENT VISIT DATE February 17, 2024 OUTPATIENT VISIT TYPE ESTABLISHED PATIENT Name: Sivan Tamayo : 1970 Date: February 17, 2024 PRIMARY CARE PHYSICIAN: Wes Gates [address] [place] [address] REFERRING PHYSICIAN: Haile Pollock [address] [facility] [address] CHIEF COMPLAINT: Patient presents with: Cardiology Follow [...] stenting in April 2023 after presenting to [facility] with chest pain and subsequent findings with diagnostic cardiac catheterization and underwent stent placement at [facility]. 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 Normal [facility] CNPNon 01-21-2024 CNPN Telephone (CHICHI) SIVAN TAMAYO ([id number]) 1970 M Date Time Provider Department 01/21/24 JOVANNA DUNLAP During your visit today, we recorded the following information about you: Preethi Jalloh 01/21/2024 8:39 AM Signed PT calling today for a sooner appointment, nothing available on provider and [employer] schedules. PT placed on wait list. PT has been experiencing symptoms of what he felt before his surgery last year for heart blockages. PT is concerned he may have some blockages now. PT has been more winded, increased sweating, some dizziness. PT does not check BP at home. PT is requesting a return call to advise of symptoms at [phone] Shannen Moe RN 01/28/2024 2:21 PM Signed [...] to go to the ER for evaluation. BRIDGETT: 08/12/[address] Dunlap 1. Coronary [...] 35-39.9 [E66.9] 04/26/2023 Coronary artery disease involving twin hills stratton*04/27/2023 Mixed hyperlipidemia [E78.2] 04/27/2023 S/P angioplasty with stent [Z95.820] 05/10/2023 Obesity, Class I, BMI 30-34.9 [E66.9] 05/11/2023 Encounter Status:Closed by PREETHI JALLOH on 01/28/24 Normal [facility] ALBUMIN/CREAT RATIO CATIA URodanelle 05-10-2023 Albumin DL <= 20 mg/L (U) [Mass/Vol] [facility] Albumin/Creatinine (U) [Mass ratio] <30 mg/g [facility] Creatinine (U) [Mass/Vol] 135.1 mg/dL 20.0 - 300.0 mg/dL [facility] CBC W Auto Differential pane l (Bld)on 05-10-2023 Basophils (Bld) [#/Vol] <0.11 k/uL [facility] Basophils/100 WBC (Bld) 0.4 % C [facility] Differential cell count method Nom (Bld) Auto [facility] Eosinophils (Bld) [#/Vol] 0.18 10*3/uL <0.46 k/uL [facility] Eosinophils/100 WBC (Bld) 3.5 % [facility] Erythrocyte distribution width (RBC) [Ratio] 12.4 % 11.5 - 15.0 % [facility] Hematocrit (Bld) [Volume fraction] 42.4 % 39.0 - 51.0 % [facility] Hemoglobin (Bld) [Mass/Vol] 14.1 g/dL 13.0 - 17.0 g/dL [facility] Immature granulocytes (Bld) [#/Vol] <0.10 k/uL [facility] Immature granulocytes/100 WBC (Bld) 0.2 % [facility] Lymphocytes (Bld) [#/Vol] 1.38 10*3/uL 1.00 - 4.00 k/uL [facility] Lymphocytes/100 WBC (Bld) 26.7 % [facility] MCH (RBC) [Entitic mass] 29.0 pg 26. 0 - 34.0 pg [facility] MCHC (RBC) [Mass/Vol] 33.3 g/dL 30.5 - 36.0 g/dL [facility] MCV (RBC) [Entitic vol] 87.2 fL 80.0 - 100.0 fL [facility] Monocytes (Bld) [#/Vol] 0.43 10*3/uL <0.87 k/uL [facility] Monocytes/100 WBC (Bld) 8.3 % [facility] Neutrophils (Bld) [#/Vol] 3.14 10*3/uL 1.45 - 7.50 k/uL [facility] Neutrophils/100 WBC (Bld) 60.9 % [facility] Nucleated RBC (Bld) [#/Vol] <0.01 k/uL [facility] Nucleated RBC/100 WBC (Bld) [Ratio] 0.0 /100 WBC [facility] Platelet mean volume (Bld) [Entitic vol] 9.6 fL 9.0 - 12.7 fL [facility] Platelets (Bld) [#/Vol] 205 10*3/uL 150 - 400 k/uL [facility] RBC (Bld) [#/Vol] 4.86 10*6/uL 4.20 - 6.0 0 m/uL [facility] WBC (Bld) [#/Vol] 5.16 10*3/uL 3.70 - 11. 00 k/uL [facility] Basic metabolic 2000 panelon 04-29-2023 Anion gap [Moles/Vol] 11 mmol/L Normal 9-18 [facility] Comment on above: Order Comment: Speci men Type: BLOOD SPECIMEN [facility]ing [facility]: [facility] Address: [address] [place] [address] Performed By: #### 2 4321-2 #### [facility] CLIA [id number] [address] [place] [address] [place] Calcium [Mass/Vol] 8.9 mg/dL Normal 8.5-10.2 [facility] Comment on above: Order Comment: Speci men Type: BLOOD SPECIMEN [facility]ing [facility]: [facility] Address: [address] [place] [address] Performed By: #### 2 4321-2 #### [facility] CLIA [id number] [address] [place] [address] [place] Chloride [Moles/Vol] 100 mmol/L Normal 97-105 [facility] Comment on above: Order Comment: Speci men Type: BLOOD SPECIMEN [facility]: [facility] Address: [address] [place] [address] Performed By: #### 2 4321-2 #### [facility] CLIA [id number] [address] [place] [address] [place] CO2 [Moles/Vol] 24 mmol/L Normal 22-30 [facility] Comment on above: Order Comment: Speci men Type: BLOOD SPECIMEN [facility]: [facility] Address: [address] [place] [address] Performed By: #### 2 4321-2 #### [facility] CLIA [id number] [address] [place] [address] [place] Creatinine [Mass/Vol] 0.72 mg/dL Low 0.73-1.22 [facility] Comment on above: Order Comment: Shellie ortega Type: BLOOD SPECIMEN [facility]: [facility] Address: [address] [place] [address] Performed By: #### 2 4321-2 #### [facility] CLIA [id number] [place] [address] [place] [facility] Creatinine and Glomerular filtration rate.predicted panel (S/P/Bld) 111 mL/min/1.73m??? Normal >=60 [facility] Comment on above: Order Comment: Shellie ortega Type: BLOOD SPECIMEN [facility]: [facility] Address: [place] [address] Result Comment: Liana mated Glomerular Filtration Rate [...] GFR. Performed By: #### 2 4321-2 #### [facility] CLIA [id number] [address] [place] [address] [place] Glucose [Mass/Vol] 178 mg/dL High 74-99 [facility] Comment on above: Order Comment: Shellie ortega Type: BLOOD SPECIMEN [facility]ing Facility: [facility] Address: [place] [address] Result Comment: The [place] Diabetes Association (ADA) provides guidance for cutoff [...] Standards of Medical Care in Diabetes 2016, [place] Diabetes Association. Diabetes Care. 2016.39(Suppl 1). Performed By: #### 2 4321-2 #### [facility] CLIA [id number] [address] [place] [address] [place] Potassium [Moles/Vol] 4.4 mmol/L Normal 3.7-5.1 [facility] Comment on above: Order Comment: Speci men Type: BLOOD SPECIMEN [facility]ing [facility]: [facility] Address: [address] [place] [address] Performed By: #### 2 4321-2 #### [facility] CLIA [id number] [place] [address] [place] Sodium [Moles/Vol] 135 mmol/L Low 136-144 [facility] Comment on above: Order Comment: Speci men Type: BLOOD SPECIMEN [facility]: [facility] Address: [address] [place] [address] Performed By: #### 2 4321-2 #### [facility] CLIA [id number] [address] [place] [address] [place] Urea nitrogen [Mass/Vol] 13 mg/dL Normal 9-24 [facility] Comment on above: Order Comment: Speci men Type: BLOOD SPECIMEN [facility]: [facility] Address: [address] [place] [address] Performed By: #### 2 4321-2 #### [facility] CLIA [id number] [address] [place] [address] [place] CBC panel Auto (Bld)on 04-29 Erythrocyte distribution width (RBC) [Ratio] 12.2 % Normal 11.5-15.0 [facility] Comment on above: Order Comment: Speci men Type: BLOOD SPECIMENOrdering Facility: [facility] Address: [address] [place] [address] Performed By: #### 5 8410-2 ####[facility] [id number] [place] [address] [place] Hematocrit (Bld) [Volume fraction] 43.9 % Normal 39.0-51.0 [facility] Comment on above: Order Comment: Speci men Type: BLOOD SPECIMENOrdering Facility: [facility] Address: [address] [place] [address] Performed By: #### 5 8410-2 ####[facility] [id number] [address] [place] Hemoglobin (Bld) [Mass/Vol] 15.0 g/dL Normal 13.0-17.0 [facility] Comment on above: Order Comment: Speci men Type: BLOOD SPECIMENOrdering Facility: [facility] Address: [address] [place] [address] Performed By: #### 5 8410-2 ####[facility] [id number] [address] [place] MCH (RBC) [Entitic mass] 29.1 pg Normal 26.0-34.0 [facility] Comment on above: Order Comment: Speci men Type: BLOOD SPECIMENOrdering Facility: [facility] Address: [address] [place] [address] Performed By: #### 5 8410-2 ####[facility]ORATORYCLIA [id number] [address] [place] MCHC (RBC) [Mass/Vol] 34.2 g/dL Normal 30.5-36.0 [facility] Comment on above: Order Comment: Speci men Type: BLOOD SPECIMENOrdering Facility: [facility] Address: [address] [place] [address] Performed By: #### 5 8410-2 ####[facility] [id number] [address] [place] MCV (RBC) [Entitic vol] 85.2 fL Normal 80.0-100.0 [facility] Comment on above: Order Comment: Speci men Type: BLOOD SPECIMENOrdering Facility: [facility] Address: [address] [place] [address] Performed By: #### 5 8410-2 ####[facility]ORYCLIA [id number] [place] [address] [place] Nucleated RBC (Bld) [#/Vol] 10*3/uL Normal <0.01 [facility] Comment on above: Order Comment: Speci men Type: BLOOD SPECIMENOrdering Facility: [facility] Address: [address] [place] [address] Performed By: #### 5 8410-2 ####[facility] [id number] [place] [id number] [place] Platelet mean volume (Bld) [Entitic vol] 9.3 fL Normal 9.0-12.7 [facility] Comment on above: Order Comment: Speci men Type: BLOOD SPECIMENOrdering Facility: [facility] Address: [address] [place] [address] Performed By: #### 5 8410-2 ####[facility] [id number] [place] [address] [place] Platelets (Bld) [#/Vol] 207 10*3/uL Normal 150-400 [facility] Comment on above: Order Comment: Speci men Type: BLOOD SPECIMENOrdering Facility: [facility] Address: [address] [place] [address] Performed By: #### 5 8410-2 ####[facility] [id number] [place] [address] [place] RBC (Bld) [#/Vol] 5.15 10*6/uL Normal 4.20-6.00 [facility] Comment on above: Order Comment: Speci men Type: BLOOD SPECIMENOrdering Facility: [facility] Address: [address] [place] [address] Performed By: #### 5 8410-2 ####[facility] [id number] [place] [id number] [place] WBC (Bld) [#/Vol] 7.99 10*3/uL Normal 3.70-11.00 [facility] Comment on above: Order Comment: Speci men Type: BLOOD SPECIMENOrdering Facility: [facility] Address: [address] [place] [address] Performed By: #### 5 8410-2 ####[facility] [id number] [address] [facility] CNDSon 04-29-2023 CNDS HNO ID: [id number] Author: Krish Urias MD Service: Hospital Medicine [...] Provider: Krish Urias MD Primary Service: , [facility] REASON FOR HOSPITALIZATION: chest pain, intermittent, with CAD on LHC at [facility] DIAGNOSIS: Principal Problem: 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 who presented to [facility] for CP. Troponins were negative. EKG [...] of placing stents. Pt. Was admitted to [facility], had a C on 04/28/[address] Pollock , with [...] mouth once daily. STOP taking these medications Amphetamine-Dextroamp hetamine 30 mg tablet Commonly known as: AdderalL ASHWAGANDHA EXTRACT ORAL Where to Get Your Medications These medications were sent to [facility] - [place] [address] - [address] - [phone] (more content not included)... [facility] 04-29-2023 YULISA Telephone (FVPRAD) SIVAN TAMAYO ([id number]) 1970 M Date Time Provider Department 04/29/23 ANNELIESE GIBBS During your visit today, we recorded the following information about you: Anneliese Gibbs APRN.[facility] 04/29/2023 11:25 AM Signed Please arrange for [...] 35-39.9 [E66.9] 04/26/2023 Coronary artery disease involving twin hills stratton*04/27/2023 Mixed hyperlipidemia [E78.2] 04/27/2023 Encounter Status:Closed by TERESO SON on 04/30/23 [facility] CONSULT PROGon 04-29-2023 CONSULT PROG HNO ID: [id number] Author: Lobito Brennan MD Service: Cardiovascular Medicine Author Type: Physician Type: Consult Progress Note Filed: 04/29/2023 5:41 PM Note Text: [facility] PROGRESS NOTE Sivan Tamayo [id number] PRIMARY SERVICE: Internal Medicine SUBJECTIVE: INTERVAL HISTORY: [...] clubbing or cyanosis. No edema. Warm digits. Neurologic/Psychiatri c: Oriented to person, place, time. Normal affect. 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 I have reviewed and updated the problem list as appropriate. I have discussed the case and management of the patient's care. STAFF PHYSICIAN: Loibto Brennan MD DATE OF SERVICE: April 29, 2023 TIME OF SERVICE: 5:40 PM [facility] ECG COMPLETEon 04-29-2023 ECG COMPLETE Ventricular Rate : 7 4 BPM Atrial Rate : 74 BPM P-R Interval : 182 ms QRS Duration : 99 ms Q-T Interval : 365 ms QTC Calculation(Bazett) : 405 ms Calculated P Alpine : 41 degrees Calculated R Alpine : -33 degrees Calculated T Alpine : 23 degrees Sinus rhythm Multiform ventricular premature complexes Confirmed by KEVIN MADDEN MD ([id number]) on 04/29/2023 8:51:45 PM NAME : SIVAN TAMAYO PID : [id number] : 1970 Gender : Male Race : ORD : [id number] Procedure Date : Apr 29 2023 09:00:28 Edit Date : Apr 29 2023 20:51:49 Diagnosis: Sinus rhythm Multiform ventricular premature complexes Confirmed by KEVIN MADDEN MD ([id number]) on 04/29/2023 8:51:45 PM Test Reason : Post-OP Location : [address] : [address] Overread By : KEVIN MADDEN MD Edited By : KEVIN MADDEN MD Referred By : JOVANNA DUNLAP Acquired by : SAM JENKINS [facility] NURSING PROGon 04-29-2023 NURSING PROG HNO ID: [id number] Author: Kem Correia RN Service: Nursing Author [...] out of room at 1406 via wheelchair. [facility] Basic metabolic 2000 panelon 04-28-2023 Anion gap [Moles/Vol] 10 mmol/L Normal 9-18 [facility] Comment on above: Order Comment: Speci men Type: BLOOD SPECIMENOrdering Facility: [facility] Address: [address], [place] [address] Performed By: #### 2 4321-2, , HSTNT ####[facility] [id number] [place] [address] [place] Calcium [Mass/Vol] 8.9 mg/dL Normal 8.5-10.2 [facility] Comment on above: Order Comment: Speci men Type: BLOOD SPECIMENOrdering Facility: [facility] Address: [address] [place] [address] Performed By: #### 2 4321-2, , HSTNT ####[facility] [id number] [place] [id number] [place] Chloride [Moles/Vol] 102 mmol/L Normal 97-105 [facility] Comment on above: Order Comment: Speci men Type: BLOOD SPECIMENOrdering Facility: [facility] Address: [address] [place] [address] Performed By: #### 2 432-2, , HSTNT ####[facility] [id number] [place] [id number] [place] CO2 [Moles/Vol] 23 mmol/L Normal 22-30 [facility] Comment on above: Order Comment: Speci men Type: BLOOD SPECIMENOrdering Facility: [facility] Address: [address] [place] [address] Performed By: #### 2 4321-2, , HSTNT ####[facility] LABORATORYCLIA [id number] [place] [id number] [place] Creatinine [Mass/Vol] 0.76 mg/dL Normal 0.73-1.22 [facility] Comment on above: Order Comment: Speci men Type: BLOOD SPECIMENOrdering Facility: [facility] Address: [address] [place] [address] Performed By: #### 2 4321-2, , HSTNT ####CR[facility] LABORATORYCLIA [id number] [place] [id number] [place] Creatinine and Glomerular filtration rate.predicted panel (S/P/Bld) 109 mL/min/1.73m??? Normal >=60 [facility] Comment on above: Order Comment: Shellie ortega Type: BLOOD SPECIMENOrdering Facility: [facility] Address: [address] [place] [address] Result Comment: Liana mated Glomerular Filtration Rate [...] actual GFR. Performed By: #### 2 4321-2, 09988-0, HSTNT ####CR[facility] LABORATORYCLIA [id number] [place] [address] [place] Glucose [Mass/Vol] 170 mg/dL High 74-99 [facility] Comment on above: Order Comment: Shellie ortega Type: BLOOD SPECIMENOrdering Facility: [facility] Address: [address] [place] [address] Result Comment: The [place] Diabetes Association (ADA) provides guidance for cutoff [...] Standards of Medical Care in Diabetes 2016, [place] Diabetes Association. Diabetes Care. 2016.39(Suppl 1). Performed By: #### 2 4321-2, 60754-7, HSTNT ####[facility] LABORATORYCLIA [id number] [place] [address] [place] Potassium [Moles/Vol] 4.4 mmol/L Normal 3.7-5.1 [facility] Comment on above: Order Comment: Speci men Type: BLOOD SPECIMENOrdering Facility: [facility] Address: [address] [place] [address] Performed By: #### 2 4321-2, , HSTNT ####[facility] LABORATORYCLIA [id number] [place] [id number] [place] Sodium [Moles/Vol] 135 mmol/L Low 136-144 [facility] Comment on above: Order Comment: Speci men Type: BLOOD SPECIMENOrdering Facility: [facility] Address: [address] [place] [address] Performed By: #### 2 4321-2, , HSTNT ####[facility] LABORATORYCLIA [id number] [place] [id number] [place] Urea nitrogen [Mass/Vol] 15 mg/dL Normal 9-24 [facility] Comment on above: Order Comment: Speci men Type: BLOOD SPECIMENOrdering Facility: [facility] Address: [address] [place] [address] Performed By: #### 2 4321-2, , HSTNT ####[facility] LABORATORYCLIA [id number] [place] [id number] [facility] [place] CARD CATH INTERVENTon 2022 CARD CATH INTERVENT Site Id: [facility] Lab #: Study Date: 04/28/2023 Start Time: End Time: + + PATIENT INFORMATION + + Name: MR. SIVAN TAMAYO : 1970 Age: 53 years Gender: M Height: 71 in / 180 cm Weight: 251.32 lb / 114.00 kg BMI: 35.19 kg/m BSA: 2.32 m + --------+ CLINICAL HISTORY/INDICATIONS + --------+ Unstable angina. Procedural Status: Elective CAD Presentation: Unstable Angina Angina Classification (within 2 weeks): No Angina Anti-Angina Meds (within 2 weeks): No. No Heart Failure No Cardiomyopathy - No LV Dysfunction Pre-Op Evaluation before Non-Card Surg: No Cardiogenic Shock: No Cardiac Arrest: No Clinical History: unstable angina from [place]. + + PCI SUMMARY + + Procedures [...] + HEMODYNAMICS - XPER + + + +--- +---+-------+----+--- ---+------+ Measurement Name Sys Evonne End Evonne Mean A Wave V Wave + +--- +---+-------+----+--- ---+------+ Oximetry: +----+ +- -+---+--+ Site O2 Saturation O2 PO2 HB +----+ +- -+---+--+ + + ADVERSE OUTCOME(s)/COMPLICATI ON(s) + + None + + PROCEDURAL & TECHNICAL DETAILS + + + + Description (Procedure) + + Balloon [...] Gy*m Total Exposure Time 3029.28 sec *ADVERSE OUTCOME(s)/COMPLICATI ON(s)* None Recommended Treatment: Images: *MEDICAL HISTORY* CAD [...] Summary: Moderate (more content not included)... Normal [facility] CBC W Auto Differential pane l (Bld)on 04-28-2023 Basophils (Bld) [#/Vol] 0.03 10*3/uL Normal <0.11 [facility] Comment on above: Order Comment: Shellie ortega Type: BLOOD SPECIMEN [facility]: [facility] Address: [address] [place] [address] Performed By: #### 5 7021-8 #### [facility] CLIA [id number] [address] [place] [address] [place] Basophils/100 WBC (Bld) 0.5 % Normal [facility] Comment on above: Order Comment: Shellie ortega Type: BLOOD SPECIMEN [facility]ing [facility]: [facility] Address: [address] [place] [address] Performed By: #### 5 7021-8 #### [facility] CLIA [id number] [address] [place] [address] [place] Differential cell count method Nom (Bld) Auto Normal [facility] Comment on above: Order Comment: Shellie ortega Type: BLOOD SPECIMEN [facility]: [facility] Address: [address] [place] [address] Performed By: #### 5 7021-8 #### [facility] CLIA [id number] [address] [place] [address] [place] Eosinophils (Bld) [#/Vol] 0.17 10*3/uL Normal <0.46 [facility] Comment on above: Order Comment: Shellie ortega Type: BLOOD SPECIMEN [facility]: [facility] Address: [address] [place] [address] Performed By: #### 5 7021-8 #### [facility] CLIA [id number] [address] [place] [address] [place] Eosinophils/100 WBC (Bld) 2.8 % Normal [facility] Comment on above: Order Comment: Speci men Type: BLOOD SPECIMEN [facility]: [facility] Address: [address] [place] [address] Performed By: #### 5 7021-8 #### [facility] CLIA [id number] [address] [place] [address] [place] Erythrocyte distribution width (RBC) [Ratio] 12.4 % Normal 11.5-15.0 [facility] Comment on above: Order Comment: Speci men Type: BLOOD SPECIMEN [facility]ing [facility]: [facility] Address: [address] [place] [address] Performed By: #### 5 7021-8 #### [facility] CLIA [id number] [address] [place] [address] [place] Hematocrit (Bld) [Volume fraction] 43.5 % Normal 39.0-51.0 [facility] Comment on above: Order Comment: Speci men Type: BLOOD SPECIMEN [facility]ing [facility]: [facility] Address: [address] [place] [address] Performed By: #### 5 7021-8 #### [facility] CLIA [id number] [address] [place] [address] [place] Hemoglobin (Bld) [Mass/Vol] 14.6 g/dL Normal 13.0-17.0 [facility] Comment on above: Order Comment: Speci men Type: BLOOD SPECIMEN [facility]ing [facility]: [facility] Address: [address] [place] [address] Performed By: #### 5 7021-8 #### [facility] CLIA [id number] [address] [place] [address] [place] Immature granulocytes (Bld) [#/Vol] 10*3/uL Normal <0.10 [facility] Comment on above: Order Comment: Speci men Type: BLOOD SPECIMEN [facility]: [facility] Address: [address] [place] [address] Performed By: #### 5 7021-8 #### [facility] CLIA [id number] [address] [place] [address] [place] Immature granulocytes/100 WBC (Bld) 0.3 % Normal [facility] Comment on above: Order Comment: Speci men Type: BLOOD SPECIMEN [facility]: [facility] Address: [address] [place] [address] Performed By: #### 5 7021-8 #### [facility] CLIA [id number] [address] [place] [address] [place] Lymphocytes (Bld) [#/Vol] 1.82 10*3/uL Normal 1.00-4.00 [facility] Comment on above: Order Comment: Speci men Type: BLOOD SPECIMEN [facility]: [facility] Address: [address] [place] [address] Performed By: #### 5 7021-8 #### [facility] CLIA [id number] [address] [place] [address] [place] Lymphocytes/100 WBC (Bld) 30.0 % Normal [facility] Comment on above: Order Comment: Speci men Type: BLOOD SPECIMEN [facility]: [facility] Address: [address] [place] [address] Performed By: #### 5 7021-8 #### [facility] CLIA [id number] [address] [place] [address] [place] MCH (RBC) [Entitic mass] 28.9 pg Normal 26.0-34.0 [facility] Comment on above: Order Comment: Speci men Type: BLOOD SPECIMEN [facility]ing [facility]: [facility] Address: [address] [place] [address] Performed By: #### 5 7021-8 #### [facility] CLIA [id number] [address] [place] [address] [place] MCHC (RBC) [Mass/Vol] 33.6 g/dL Normal 30.5-36.0 [facility] Comment on above: Order Comment: Speci men Type: BLOOD SPECIMEN [facility]: [facility] Address: [address] [place] [address] Performed By: #### 5 7021-8 #### [facility] CLIA [id number] [address] [place] [address] [place] MCV (RBC) [Entitic vol] 86.1 fL Normal 80.0-100.0 [facility] Comment on above: Order Comment: Speci men Type: BLOOD SPECIMEN [facility]: [facility] Address: [address] [place] [address] Performed By: #### 5 7021-8 #### [facility] CLIA [id number] [address] [place] [address] [place] Monocytes (Bld) [#/Vol] 0.65 10*3/uL Normal <0.87 [facility] Comment on above: Order Comment: Speci men Type: BLOOD SPECIMEN [facility]: [facility] Address: [address] [place] [address] Performed By: #### 5 7021-8 #### [facility] CLIA [id number] [address] [place] [address] [place] Monocytes/100 WBC (Bld) 10.7 % Normal [facility] Comment on above: Order Comment: Speci men Type: BLOOD SPECIMEN [facility]ing [facility]: [facility] Address: [address] [place] [address] Performed By: #### 5 7021-8 #### [facility] CLIA [id number] [address] [place] [address] [place] Neutrophils (Bld) [#/Vol] 3.37 10*3/uL Normal 1.45-7.50 [facility] Comment on above: Order Comment: Speci men Type: BLOOD SPECIMEN [facility]: [facility] Address: [address] [place] [address] Performed By: #### 5 7021-8 #### [facility] CLIA [id number] [address] [place] [address] [place] Neutrophils/100 WBC (Bld) 55.7 % Normal [facility] Comment on above: Order Comment: Speci men Type: BLOOD SPECIMEN [facility]ing [facility]: [facility] Address: [address] [place] [address] Performed By: #### 5 7021-8 #### [facility] CLIA [id number] [address] [place] [address] [place] Nucleated RBC (Bld) [#/Vol] 10*3/uL Normal <0.01 [facility] Comment on above: Order Comment: Speci men Type: BLOOD SPECIMEN [facility]ing [facility]: [facility] Address: [address] [place] [address] Performed By: #### 5 7021-8 #### [facility] CLIA [id number] [address] [place] [address] [place] Nucleated RBC/100 WBC (Bld) [Ratio] 0.0 /100 WBC Normal [facility] Comment on above: Order Comment: Speci men Type: BLOOD SPECIMEN [facility]ing [facility]: [facility] Address: [address] [place] [address] Performed By: #### 5 7021-8 #### [facility] CLIA [id number] [address] [place] [address] [place] Platelet mean volume (Bld) [Entitic vol] 9.4 fL Normal 9.0-12.7 [facility] Comment on above: Order Comment: Speci men Type: BLOOD SPECIMEN [facility]ing [facility]: [facility] Address: [address] [place] [address] Performed By: #### 5 7021-8 #### [facility] CLIA [id number] [address] [place] [address] [place] Platelets (Bld) [#/Vol] 188 10*3/uL Normal 150-400 [facility] Comment on above: Order Comment: Speci men Type: BLOOD SPECIMEN [facility]ing [facility]: [facility] Address: [address] [place] [address] Performed By: #### 5 7021-8 #### [facility] CLIA [id number] [address] [place] [address] [place] RBC (Bld) [#/Vol] 5.05 10*6/uL Normal 4.20-6.00 [facility] Comment on above: Order Comment: Speci men Type: BLOOD SPECIMEN [facility]ing [facility]: [facility] Address: [address] [place] [address] Performed By: #### 5 7021-8 #### [facility] CLIA [id number] [address] [place] [address] [place] WBC (Bld) [#/Vol] 6.06 10*3/uL Normal 3.70-11.00 [facility] Comment on above: Order Comment: Speci men Type: BLOOD SPECIMEN [facility]ing [facility]: [facility] Address: [address] [place] [address] Performed By: #### 5 7021-8 #### [facility] CLIA [id number] ECG COMPLETEon 04-28-2023 ECG COMPLETE Ventricular Rate : 6 1 BPM Atrial Rate : 61 BPM P-R Interval : 186 ms QRS Duration : 98 ms Q-T Interval : 399 ms QTC Calculation(Bazett) : 402 ms Calculated P Alpine : 36 degrees Calculated R Alpine : 0 degrees Calculated T Alpine : 64 degrees Sinus rhythm Ventricular premature complex Minimal ST elevation, consider inferior injury Abnormal ECG Confirmed by KEVIN MADDEN MD ([id number]) on 04/28/2023 11:25:41 PM NAME : SIVAN TAMAYO PID : [id number] : 1970 Gender : Male Race : ORD : [id number] Procedure Date : Apr 28 2023 15:39:19 Edit Date : Apr 28 2023 23:25:42 Diagnosis: Sinus rhythm Ventricular premature complex Minimal ST elevation, consider inferior injury Abnormal ECG Confirmed by KEVIN MADDEN MD ([id number]) on 04/28/2023 11:25:41 PM Test Reason : Chest Pain Location : 400 : FVEKG 3P31 19 Overread By : KEVIN MADDEN MD Edited By : KEVIN MADDEN MD Referred By : JOVANNA DNULAP Acquired by : JAIR NICOLE Normal [facility] HIGH SENSITIVITY TROPONIN To n 04-28-2023 Troponin T.cardiac High sensitivity method [Mass/Vol] 7 ng/L Normal <12 [facility] Comment on above: Order Comment: Speci men Type: BLOOD SPECIMENOrdering Facility: [facility] Address: [address] [place] [address] Result Comment: When assessing risk for acute [...] day MACE. Performed By: #### 2 4321-2, 93152-5, HSTNT ####[facility] LABORATORYCLIA [id number] [place] [address] [place] HbA1c (Bld)on 04-28-2023 Average glucose Estimated from glycated hemoglobin (Bld) [Mass/Vol] 180 mg/dL Normal [facility] Comment on above: Order Comment: Shellie ortega Type: BLOOD SPECIMEN [facility]: [facility] Address: [address] [place] [address] Result Comment: eAG: (Estimated average glucose) is a calculated value from HgbA1c and is nutrition representative of the average blood glucose level in the last 2-3 month period. Performed By: #### 5 5454-3 #### [facility] CLIA [id number] [address] [place] [address] [place] HbA1c (Bld) [Mass fraction] 7.9 % High 4.3-5.6 [facility] Comment on above: Order Comment: Shellie ortega Type: BLOOD SPECIMEN [facility]ing [facility]: [facility] Address: [address] [place] [address] Result Comment: [place] Diabetes Association guidelines indicate that patients with HgbA1c in the range 5.7-6.4% are at increased risk for development of diabetes, and intervention by lifestyle modification may be beneficial. HgbA1c greater or equal to 6.5% is considered diagnostic of diabetes. Performed By: #### 5 5454-3 #### [facility] CLIA [id number] [address] [place] [address] [place] Magnesium SerPl-mCncon 11-22 -2023 Magnesium [Mass/Vol] 1.9 mg/dL Normal 1.7-2.3 [facility] Comment on above: Order Comment: Speci men Type: BLOOD SPECIMENOrdering Facility: [facility] Address: [place] [address] Performed By: #### 2 4321-2, 20551-7, HSTNT ####[facility] LABORATORYCLIA [id number] [place] [id number] [facility] NURSING PROGon 04-28-2023 NURSING PROG HNO ID: [id number] Author: Meena Steinberg RN Service: Nursing Author Type: Registered Nurse Type: Nursing Progress Note Filed: 04/28/2023 4:27 PM Note Text: Transfer Note: PATIENT NAME: Sivan Tamayo Patient Location: [place] [address] [address] Room: [place] [address] Patient transferred out to room/unit PK201 in stable condition. Actions taken: Report given/called to Meera OMER. Patient belongings with patient. Normal [facility] NURSING PROG HNO ID: [id number] Author: Meena Steinberg RN Service: Nursing Author Type: Registered Nurse Type: Nursing Progress Note Filed: 04/28/2023 4:28 PM Note Text: Other: daily note See NPR and flowsheets for complete assessment and interventions. Call light within reach. Safety and tele maintained. Pt denies CP. NPO except meds. Agreeable with plan for likely stents today and overnight stay. 0845 - pt put on lab coordinator schedule for 1430. Ok for him to have breakfast per AM WHEAT SHIPPER. Han tray ordered. 0930 - pt finished breakfast. Aware of NPO status now. 1230 - pt off floor to lab coordinator. 1520 - Connected to monitor, assessed access site(s) w/ clinical lab assistant, released orders, oriented to room/call light/menu, limb/activity restrictions reviewed, frequent vitals and monitoring initiated. 1555 - called report to PK2 Meera OMER. Will keep pt for his first hour post-procedure. 1615 - some ST elevation on tele and ECG, pt only complaining of slight chest discomfort. Reported to Dr. Pollock who wished for nursing to continue to monitor and no new orders received. Passed this along to PK2 RN Meera via phone call. [facility] OPERATIVE NOon 04-28-2023 OPERATIVE NO HNO ID: [id number] Author: Haile Pollock MD Service: Cardiovascular Medicine Author Type: Physician Type: Operative Report Filed: 04/28/2023 3:03 PM Note Text: Detail report in cardiac tap of chart review. As the imaging report of syngo Successful stent of pda, plv1, om1, and diagonal 1 [facility] HISTORY PHYSICALon HISTORY PHYSICAL HNO ID: [id number] Author: Acosta Lora MD Service: Hospital Medicine Author Type: Physician Type: HANDP Filed: 04/27/2023 10:08 PM Note Text: HISTORY AND PHYSICAL Department of Hospital Medicine Service Date: 04/27/2023 Service Time: 7:26 PM Primary Care Physician: Wes Gates MD [facility] COVERAGE:Days: [phone], please page the listed teaching team or attending provider for patient issues. Nights: [phone], please page [facility] Hospitalist Night Coverage pager: [phone] for teams #1, #2 and #3 (A, B and C). For teams #4, #5 and #6 (D, E and F) page [phone]. Assessment/Plan: 1. Coronary artery disease, [place] heart, [place] arteries, with unstable angina Patient with mild exertional chest pain 1-2 times per week over the last couple months, now with severe episode prior to admission. Left heart cath at [facility] showing significant coronary artery stenosis-see data section [...] was given a dose of amlodipine at [facility] but had what they presumed was an [...] pain, intermittent, with CAD on LHC at [facility] HPI: This is a 53 year old male with past medical history of adult ADD, hypertension, hyperlipidemia, obesity (BMI 35), diabetes mellitus type 2, poorly controlled. Patient initially presented to his outpatient PCP office on 04/23/2023 and was sent to the [place] ER for evaluation of intermittent chest pain. Patient states he has had twinges of intermittent left substernal chest pain, particular with exertion over the last several months. The day prior to his PCP visit, patient had had a significant episode playing pickle ball where he felt his heart was [...] with his brother having had an acute HI at age 39. Patient was evaluated by cardiology at [facility]. Troponins were negative. EKG nonischemic. He had [...] capable of placing stents. Patient arrived to [facility] and is awaiting a cardiology evaluation. Patient has had no further chest pain since arrival. Medications: glimepiride (AMARYL) 2 mg tabletTake 1 tablet by mouth daily with breakfast.Disp: 90 tabletRfl: 3 ASHWAGANDHA EXTRACT ORALTake 500 mg by mouth daily at bedtime.Disp: Rfl: Amphetamine-Dextroamp hetamine (ADDERALL) 30 mg tabletTake 1 tablet by mouth twice daily for 30 days.Disp: 60 tabletRfl: 0 Amphetamine-Dextroamp hetamine (ADDERALL) 30 mg tabletTake 1 tablet by mouth twice daily for 30 days. Do not start before January 20, 2023.Disp: 60 tabletRfl: 0 Amphetamine-Dextroamp hetamine (ADDERALL) 30 mg tabletTake 1 tablet by mouth twice daily for 30 days. Do not start before February 19, 2023.Disp: 60 tabletRfl: 0 pioglitazone (ACTOS) 15 mg tabletTake 1 tablet by mouth once daily.Disp: 30 tabletRfl: 11 atorvastatin (LIPITOR) 20 mg tabletTake 1 tablet by mouth daily at bedti (more content not included)... Normal [facility] NURSING PROGon 04-27-2023 NURSING PROG HNO ID: [id number] Author: Julianna Pedro RN Service: Nursing Author Type: Registered Nurse Type: Nursing Progress Note Filed: 04/27/2023 8:01 PM Note Text: Transfer Note: PATIENT NAME: Sivan Tamayo Patient Location: [place] [address] [address] Room: [id number] Patient transferred into room/unit [facility] in stable condition. Sent from [facility]. Had diagnostic cath and positive stress test. Needs stents. Pt A/Ox3, no c/o chest pain or SOB. VSS. NSR with PVCs. at bedside. Answered all questions. Hospitalist at bedside discussing plan with patient. NPO after midnight for cath tomorrow. [facility] ANES POSTPROC EVALon 023 ANES POSTPROC EVAL HNO ID: [id number] Author: Steve Sifuentes APRN.AUDIO VISUAL AIDS DIRECTOR Service: Anesthesiology Author Type: Nurse Environmental Engineering Aide Type: Anesthesia Postprocedure Evaluation Filed: 02/25/2023 9:43 AM Note Text: POST ANESTHESIA EVALUATION NOTE : 1970 Procedure Summary Date: 02/25/23 Room / Location: [facility] SURGERY Anesthesia Start: 917 Anesthesia Stop: 941 Procedure: COLONOSCOPY SCREENING Diagnosis: Special screening for malignant neoplasm of colon Special screening for malignant neoplasm of colon Scheduled Providers: Zahira Veliz MD; Steve Sifuentes APRN.AUDIO VISUAL AIDS DIRECTOR Responsible Provider: Steve Sifuentes APRN.AUDIO VISUAL AIDS DIRECTOR Anesthesia Type: MAC ASA Status: 2 Anesthesia Type: MAC Last Vitals Vitals Value Taken Time BP 02/25/23 0943 Temp 02/25/23 0943 Pulse 67 02/25/23 0942 Resp 13 02/25/23 0942 SpO2 97 % 02/25/23941 Vitals shown include unvalidated device data. Post [...] care. Anesthesia Observations No Documentation SIGNATURE: Steve Sfiuentes APRN.AUDIO VISUAL AIDS DIRECTOR PATIENT NAME: Sivan Tamayo DATE: February 25, 2023 TIME: 9:43 AM CSN: [id number] [facility] ANES PRE-OPon 02-25-2023 ANES PRE-OP HNO ID: [id number] Author: Steve Sifuentes APRN.AUDIO VISUAL AIDS DIRECTOR Service: Anesthesiology Author Type: Nurse Environmental Engineering Aide Type: Anesthesia Preprocedure Evaluation Filed: 02/25/2023 9:11 AM Note Text: ANESTHESIOLOGY DAY OF SURGERY NOTE : 1970 Procedure Information Date/Time: 02/25/2345 Scheduled providers: Zahira Veliz MD; Steve Sifuentes APRN.AUDIO VISUAL AIDS DIRECTOR Procedure: COLONOSCOPY SCREENING Location: [facility] SURGERY Estimated [...] Sarabia present: yes Lip Bite Test: I Microretrognathia/Daniel ronagthia/Recessed Chin: No DENTAL Dental findings: teeth intact. [...] and consent discussed: yes. Patient / Responsible Constitution Party agrees to proceed: yes Patient / Surrogate [...] 0854 Pulse 66 02/25/23 0854 Resp 12 02/25/23 0854 Temp 35.7 ?C (96.2 ?F) 02/25/23 0854 [...] tablet by mouth daily with breakfast. - Amphetamine-Dextroamp hetamine (ADDERALL) 30 mg tablet Take 1 tablet by mouth twice daily for 30 days. Do not start before February 19, 2023. - pioglitazone (ACTOS) 15 mg tablet Take 1 tablet by mouth once daily. - ASHWAGANDHA EXTRACT ORAL Take 500 mg by mouth daily at bedtime. - Amphetamine-Dextroamp hetamine (ADDERALL) 30 mg tablet Take 1 tablet by mouth twice daily for 30 days. - Amphetamine-Dextroamp hetamine (ADDERALL) 30 mg tablet Take 1 tablet [...] 48 hours of Surgery/Procedure. SIGNATURE: Steve Sifuentes APRN.AUDIO VISUAL AIDS DIRECTOR PATIENT NAME: Sivan Tamayo DATE: February 25, 2023 TIME: 9:10 AM CSN: [id number] [facility] BRIEF OP NOTon 02-25-2023 BRIEF OP NOT HNO ID: [id number] Author: Zahira Veliz MD Service: General Surgery Author Type: Physician Type: Brief Op Note Filed: 02/25/2023 9:42 AM Note Text: BRIEF OPERATIVE NOTE SURGERY DATE: 02/25/2023 Incision/Procedure Start Time: 9:22 cecal intubation time: 9:24 Incision Close/Procedure End Time: 9:37 Surgeon(s)/Procedural ist(s) and Fishing Rod Assembler(s): Jose Alfredo Procedures: Screening colonoscopy Anesthesia: MAC Findings: hemorrhoids Estimated Blood Loss: 0 ml Specimens: None Complications: None Closure Technique: Primary Preop Diagnosis: screening for colon cancer Postop Diagnosis: hemorrhoids SIGNATURE: Zahira Veliz MD PATIENT NAME: Sivan Tamayo DATE: February 25, 2023 TIME: 9:41 AM Acct: [id number] [facility] HISTORY PHYSICALon HISTORY PHYSICAL HNO ID: [id number] Author: Zahira Veliz MD Service: General Surgery [...] Take 1 tablet by mouth once daily. Amphetamine-Dextroamp hetamine (ADDERALL) 30 mg tablet Take 1 tablet by mouth twice daily for 30 days. [START ON 01/20/2023] Amphetamine-Dextroamp hetamine (ADDERALL) 30 mg tablet Take 1 tablet by mouth twice daily for 30 days. Do not start before January 20, 2023. [START ON 02/19/2023] Amphetamine-Dextroamp hetamine (ADDERALL) 30 mg tablet Take 1 tablet [...] entered by the nurse and reviewed by me Nursing Notes: Sancho AreliLUIS cunha 12/25/2022 1:51 PM Signed REVIEW OF SYSTEMS: [...] back problems (more content not included)... Normal [facility] OPERATIVE NOon 02-25-2023 OPERATIVE NO HNO ID: [id number] Author: Zahira Veliz MD Service: General Surgery Author Type: Physician Type: Operative Report Filed: 02/26/2023 7:23 AM Note Text: [facility] - Operative Report - SIVAN Mercedes : 1970 AGE: 52. SEX: M PATIENT TYPE: O HOSP SVC: GNS LOCATION: [facility] ATTENDING PHYSICIAN: Zahira Veliz MD CSN NUMBER: [id number] DATE OF SURGERY/PROCEDURE: 02/25/2023 INCISION/PROCEDURE START TIME: 9:22 AM INCISION CLOSE/PROCEDURE END TIME: 9:37 AM PREOPERATIVE DIAGNOSIS: Screening for colon cancer. POSTOPERATIVE DIAGNOSIS: Hemorrhoids. SURGEON: Zahira Veliz MD WAGON PERSON: No Additional Staff SURGERY/PROCEDURE: Screening colonoscopy. ANESTHESIA: Monitored anesthesia care. LOCATION: [facility]. INDICATIONS: Sivan Tamayo is a 52-year-old white [...] colonoscopy in 10 years. Zahira Veliz MD LW:[id number] Normal [facility] NURSING PROGon 02-24-2023 NURSING PROG HNO ID: [id number] Author: Candido Ann RN Service: ? Author Type: Registered Nurse Type: Nursing Progress Note Filed: 02/24/2023 12:58 PM Note Text: Summary: Pre-op Instruction Pt given arrival time. Pt's stated that they were unable to find the bowel prep. States that prep was started around noon. Pt instructed to continue clear liquid and finish prep prior to midnight. Pt's verbalizes understanding. Normal [facility] Hemoglobin A1con 11-08-2020 Glucose [Mass/Vol] 160 mg/dL Normal [facility] Reference Lab Comment on above: Performed By: #### L IPB, HBA1C #### [facility] Routine Lab [address], [place] [address] HbA1c (Bld) [Mass fraction] 7.2 % High 4.3-5.6 [facility] Reference Lab Comment on above: Performed By: #### L IPB, HBA1C #### [facility] Routine Lab [address], [place] [address] Lipid Panel, Basicon 021 Cholesterol [Mass/Vol] 160 mg/dL Normal <[address] [facility] Reference Lab Comment on above: Performed By: #### L IPB, HBA1C #### [facility] Routine Lab [address], [place] [address] Cholesterol in HDL [Mass/Vol] 30 mg/dL Low >39 [facility] Reference Lab Comment on above: Performed By: #### L IPB, HBA1C #### [facility] Routine Lab [address], [place] [address] Cholesterol in LDL [Mass/Vol] 87 mg/dL Normal <100 [facility] Reference Lab Comment on above: Performed By: #### L IPB, HBA1C #### [facility] Routine Lab [address], [place] [address] Cholesterol in VLDL [Mass/Vol] 43 mg/dL High <30 [facility] Reference Lab Comment on above: Performed By: #### L IPB, HBA1C #### [facility] Routine Lab [address], [place] [address] Cholesterol non HDL [Mass/Vol] 130 mg/dL High <130 [facility] Reference Lab Comment on above: Performed By: #### L IPB, HBA1C #### [facility] Routine Lab [address] [place] [address] LDL:HDL Ratio 2.90 High <2.54 [facility] Reference Lab Comment on above: Performed By: #### L IPB, HBA1C #### [facility] Routine Lab [address], [place] [address] TC:HDL Ratio 5.33 High <5.10 [facility] Reference Lab Comment on above: Performed By: #### L IPB, HBA1C #### [facility] Routine Lab [address] [place] [address] Triglyceride [Mass/Vol] 215 mg/dL High <150 [facility] Reference Lab Comment on above: Performed By: #### L IPB, HBA1C #### [facility] Routine Lab [address] [place] [address] Fasting Time UN Normal [facility] Reference Lab Comment on above: Performed By: #### L IPB, HBA1C #### [facility] Routine Lab [address] [place] [address] Comp Metabolic Panelon 07-10 Albumin [Mass/Vol] 4.5 g/dL Normal 3.9-4.[address] [facility] Reference Lab Comment on above: Performed By: #### T SH, HBA1C, CMP, LDLDCT, LIPB, TESTO #### [facility] Routine Lab [address] [place] [address] ALP [Catalytic activity/Vol] 79 U/L Normal 38-113 [facility] Reference Lab Comment on above: Performed By: #### T SH, HBA1C, CMP, LDLDCT, LIPB, TESTO #### [facility] Routine Lab [address] [place] [address] ALT [Catalytic activity/Vol] 82 U/L High 10-54 [facility] Reference Lab Comment on above: Performed By: #### T SH, HBA1C, CMP, LDLDCT, LIPB, TESTO #### [facility] Routine Lab [address], [place] [address] Anion gap [Moles/Vol] 14 mmol/L Normal 9-18 [facility] Reference Lab Comment on above: Performed By: #### T SH, HBA1C, CMP, LDLDCT, LIPB, TESTO #### [facility] Routine Lab [address], [place] [address] AST [Catalytic activity/Vol] 71 U/L High 14-40 [facility] Reference Lab Comment on above: Performed By: #### T SH, HBA1C, CMP, LDLDCT, LIPB, TESTO #### [facility] Routine Lab [address] [place] [address] Bilirubin [Mass/Vol] 0.5 mg/dL Normal 0.2-1.3 [facility] Reference Lab Comment on above: Performed By: #### T SH, HBA1C, CMP, LDLDCT, LIPB, TESTO #### [facility] Routine Lab [address] [place] [address] Calcium [Mass/Vol] 9.3 mg/dL Normal 8.5-10.[address] [facility] Reference Lab Comment on above: Performed By: #### T SH, HBA1C, CMP, LDLDCT, LIPB, TESTO #### [facility] Routine Lab [address] [place] [address] Chloride [Moles/Vol] 102 mmol/L Normal 97-105 [facility] Reference Lab Comment on above: Performed By: #### T SH, HBA1C, CMP, LDLDCT, LIPB, TESTO #### [facility] Routine Lab [address] [place] [id number] CO2 [Moles/Vol] 18 mmol/L Low 22-30 [facility] Reference Lab Comment on above: Performed By: #### T SH, HBA1C, CMP, LDLDCT, LIPB, TESTO #### [facility] Routine Lab [address], [place] [address] Creatinine [Mass/Vol] 0.75 mg/dL Normal 0.73-1.22 [facility] Reference Lab Comment on above: Performed By: #### T SH, HBA1C, CMP, LDLDCT, LIPB, TESTO #### [facility] Routine Lab [address], [place] [address] eGFR- Amer. >[address] [facility] Reference Lab Comment on above: Performed By: #### T SH, HBA1C, CMP, LDLDCT, LIPB, TESTO #### [facility] Routine Lab [address], [place] [address] eGFR-All Other Races >60 Normal [facility] Reference Lab Comment on above: Performed By: #### T SH, HBA1C, CMP, LDLDCT, LIPB, TESTO #### [facility] Routine Lab [address], [place] [address] Glucose [Mass/Vol] 190 mg/dL High 74-[address] [facility] Reference Lab Comment on above: Performed By: #### T SH, HBA1C, CMP, LDLDCT, LIPB, TESTO #### [facility] Routine Lab [address], [place] [address] Potassium [Moles/Vol] 4.4 mmol/L Normal 3.7-5.1 [facility] Reference Lab Comment on above: Performed By: #### T SH, HBA1C, CMP, LDLDCT, LIPB, TESTO #### [facility] Routine Lab [address], [place] [address] Protein [Mass/Vol] 7.6 g/dL Normal 6.3-8.[address] [facility] Reference Lab Comment on above: Performed By: #### T SH, HBA1C, CMP, LDLDCT, LIPB, TESTO #### [facility] Routine Lab [address], [place] [address] Sodium [Moles/Vol] 134 mmol/L Low 136-[address] [facility] Reference Lab Comment on above: Performed By: #### T SH, HBA1C, CMP, LDLDCT, LIPB, TESTO #### [facility] Routine Lab [address], [place] [address] Urea nitrogen [Mass/Vol] 13 mg/dL Normal 9-24 [facility] Lab Comment on above: Performed By: #### T SH, HBA1C, CMP, LDLDCT, LIPB, TESTO #### [facility] Routine Lab [address], [place] [address] Hemoglobin A1con 07-10-2020 Glucose [Mass/Vol] 200 mg/dL Normal [facility] Reference Lab Comment on above: Performed By: #### T SH, HBA1C, CMP, LDLDCT, LIPB, TESTO #### [facility] Routine Lab [address], [place] [id number] HbA1c (Bld) [Mass fraction] 8.6 % High 4.3-5.6 [facility] Reference Lab Comment on above: Performed By: #### T SH, HBA1C, CMP, LDLDCT, LIPB, TESTO #### [facility] Routine Lab [address], [place] [phone] LDL-Chol, Directon 1 LDL-Chol, Direct 80 mg/dL Normal <100 [facility] Reference Lab Comment on above: Performed By: #### T SH, HBA1C, CMP, LDLDCT, LIPB, TESTO #### [facility] Routine Lab [address], [place] [address] VLDL Cholesterol 92 mg/dL High <30 [facility] Reference Lab Comment on above: Performed By: #### T SH, HBA1C, CMP, LDLDCT, LIPB, TESTO #### [facility] Routine Lab [address], [place] [address] Lipid Panel, Basicon 021 Cholesterol [Mass/Vol] 202 mg/dL High <[address] [facility] Reference Lab Comment on above: Performed By: #### T SH, HBA1C, CMP, LDLDCT, LIPB, TESTO #### [facility] Routine Lab [address], [place] [address] Cholesterol in HDL [Mass/Vol] 30 mg/dL Low >39 [facility] Reference Lab Comment on above: Performed By: #### T SH, HBA1C, CMP, LDLDCT, LIPB, TESTO #### [facility] Routine Lab [address] [place] [address] Cholesterol non HDL [Mass/Vol] 172 mg/dL High <130 [facility] Reference Lab Comment on above: Performed By: #### T SH, HBA1C, CMP, LDLDCT, LIPB, TESTO #### [facility] Routine Lab [address] [place] [address] LDL-Cholesterol LDHDNO Normal <100 [facility] Reference Lab Comment on above: Performed By: #### T SH, HBA1C, CMP, LDLDCT, LIPB, TESTO #### [facility] Routine Lab [address] [place] [address] LDL:HDL Ratio Normal <2.54 [facility] Reference Lab Comment on above: Result Comment: Unab le to Reference: 1. National Cholesterol Education Program ATP III Guideline At-A-Glance Quick Desk Reference: National Heart, Lung, and Blood [place]. National Institutes of Health. 2001: NIH Publication No. 3305. 2. An International Atherosclerosis Society position paper: global recommendations for the management of dyslipidemia: executive summary, Atherosclerosis. 2014: 232(2):410-413. calculate due Reference: 1. National Cholesterol Education Program ATP III Guideline At-A-Glance Quick Desk Reference: National Heart, Lung, and Blood [place]. National Institutes of Health. 2001: NIH Publication No. 3305. 2. An International Atherosclerosis Society position paper: global recommendations for the management of dyslipidemia: executive summary, Atherosclerosis. 2014: 232(2):410-413. to elevated Reference: 1. National Cholesterol Education Program ATP III Guideline At-A-Glance Quick Desk Reference: National Heart, Lung, and Blood [place]. National Institutes of Health. 2000: NIH Publication No. 01-3305. 2. An International Atherosclerosis Society position paper: global recommendations for the management of dyslipidemia: executive summary, Atherosclerosis. 2014: 232(2):410-413. Triglycerides. Reference: 1. National Cholesterol Education Program ATP III Guideline At-A-Glance Quick Desk Reference: National Heart, Lung, and Blood [place]. National Institutes of Health. 2001: NIH Publication No. -3305. 2. An International Atherosclerosis Society position paper: global recommendations for the management of dyslipidemia: executive summary, Atherosclerosis. 2014: 232(2):410-413. Performed By: #### T SH, HBA1C, CMP, LDLDCT, LIPB, TESTO #### [facility] Routine Lab [address] [place] [address] TC:HDL Ratio 6.73 High <5.10 [facility] Reference Lab Comment on above: Performed By: #### T SH, HBA1C, CMP, LDLDCT, LIPB, TESTO #### [facility] Routine Lab [address] [place] [phone] Triglyceride [Mass/Vol] 439 mg/dL High <150 [facility] Reference Lab Comment on above: Performed By: #### T SH, HBA1C, CMP, LDLDCT, LIPB, TESTO #### [facility] Routine Lab [address] [place] [phone] VLDL Cholesterol LDHDNO Normal <30 [facility] Reference Lab Comment on above: Performed By: #### T SH, HBA1C, CMP, LDLDCT, LIPB, TESTO #### [facility] Routine Lab [address] [place] [address] Fasting Time UN Normal [facility] Reference Lab Comment on above: Performed By: #### T SH, HBA1C, CMP, LDLDCT, LIPB, TESTO #### [facility] Routine Lab [address] [place] [address] TSHon 07-10-2020 TSH Qn 2.570 m[IU]/L Normal 0.270-4.200 [facility] Reference Lab Comment on above: Performed By: #### T SH, HBA1C, CMP, LDLDCT, LIPB, TESTO #### [facility] Routine Lab [address], [place] [address] Testosteroneon 07-10-2020 Testosterone [Mass/Vol] 185 ng/dL Low 193-824 [facility] Reference Lab Comment on above: Performed By: #### T SH, HBA1C, CMP, LDLDCT, LIPB, TESTO #### [facility] Routine Lab [address], [place] [address] Vital Signs Date Time Vital Sign Value Performing Clinician Perla modi 12-22-2024 15:42-0400 Body mass index (BMI) [Ratio] 34.04 kg/m2 Wes Gates MD Work Phone: [facility] 12-22-2024 15:42-0400 Body weight 113.85 kg Wes Gates MD Work Phone: [facility] 12-22-2024 15:42-0400 Diastolic blood pressure 72 mm[Hg] Wes Gates MD Work Phone: [facility] 12-22-2024 15:42-0400 Systolic blood pressure 122 mm[Hg] Wes Gates MD Work Phone: [facility] 12-17-2024 23:17-0400 Body temperature 98.2 [degF] Dr. Vadim Ng DO Work Phone: [facility] 12-17-2024 23:17-0400 Diastolic blood pressure 86 mm[Hg] Dr. Vadim Ng DO Work Phone: [facility] 12-17-2024 23:17-0400 Heart rate 76 /min Dr. Vadim Ng DO Work Phone: [facility] 12-17-2024 23:17-0400 Respiratory rate 12 /min Dr. Vadim Ng DO Work Phone: [facility] 12-17-2024 23:17-0400 SaO2% (BldA) [Mass fraction] 97 % Dr. Vadim Ng DO Work Phone: [facility] 12-17-2024 23:17-0400 Systolic blood pressure 151 mm[Hg] Dr. Vdaim Ng DO Work Phone: [facility] 12-17-2024 16:45-0400 Body height 180.[address] Vadim Ng DO Work Phone: [facility] 12-17-2024 16:45-0400 Body mass index (BMI) [Ratio] 35.1 kg/m2 Dr. Vadim Ng DO Work Phone: [facility] 12-17-2024 16:45-0400 Body weight 114.[address] Vadim gN DO Work Phone: [facility] 11-03-2024 11:16-0400 Body height 182.9 cm Preethi Causey APRN.WHEAT SHIPPER Work Phone: [facility] 11-03-2024 11:16-0400 Body mass index (BMI) [Ratio] 35.37 kg/m2 Preethi Causey APRN.WHEAT SHIPPER Work Phone: [facility] 11-03-2024 11:16-0400 Body weight 118.3 kg Preethi Causey APRN.WHEAT SHIPPER Work Phone: [facility] 11-03-2024 11:16-0400 Diastolic blood pressure 62 mm[Hg] Preethi Causey APRN.WHEAT SHIPPER Work Phone: [facility] 11-03-2024 11:16-0400 SaO2% (BldA) [Mass fraction] 96 % Preethi Causey APRN.WHEAT SHIPPER Work Phone: [facility] 11-03-2024 11:16-0400 Systolic blood pressure 100 mm[Hg] Preethi Causey APRN.WHEAT SHIPPER Work Phone: [facility] 08-14-2024 15:54-0400 Body mass index (BMI) [Ratio] 36.08 kg/m2 Wes Gates MD Work Phone: [facility] 08-14-2024 15:54-0400 Body weight 120.66 kg Wes Gates MD Work Phone: [facility] 08-14-2024 15:54-0400 Diastolic blood pressure 82 mm[Hg] Wes Gates MD Work Phone: [facility] 08-14-2024 15:54-0400 Heart rate 85 /min Wes Gates MD Work Phone: [facility] 08-14-2024 15:54-0400 SaO2% (BldA) [Mass fraction] 97 % Wes Gates MD Work Phone: [facility] 08-14-2024 15:54-0400 Systolic blood pressure 120 mm[Hg] Wes Gates MD Work Phone: [facility] 06-23-2024 10:39-0500 Body height 182.9 cm Wes Gates MD Work Phone: [facility] 06-23-2024 10:39-0500 Body mass index (BMI) [Ratio] 37.97 kg/m2 Wes Gates MD Work Phone: [facility] 06-23-2024 10:39-0500 Body weight 127 kg Wes Gates MD Work Phone: [facility] 06-23-2024 10:39-0500 Diastolic blood pressure 82 mm[Hg] Wes Gates MD Work Phone: [facility] 06-23-2024 10:39-0500 Heart rate 84 /min Wes Gates MD Work Phone: [facility] 06-23-2024 10:39-0500 SaO2% (BldA) [Mass fraction] 97 % Wes Gates MD Work Phone: [facility] 06-23-2024 10:39-0500 Systolic blood pressure 136 mm[Hg] Wes Gates MD Work Phone: [facility] 02-17-2024 09:58-0400 Body height 182.9 cm Jovanna [place] DO Work Phone: [facility] 02-17-2024 09:58-0400 Body mass index (BMI) [Ratio] 36.93 kg/m2 Jovanna [place] DO Work Phone: [facility] 02-17-2024 09:58-0400 Body weight 123.5 kg Jovanna [place] DO Work Phone: [facility] 02-17-2024 09:58-0400 Diastolic blood pressure 82 mm[Hg] Jovanna [place] DO Work Phone: [facility] 02-17-2024 09:58-0400 Heart rate 76 /min Jovanna [place] DO Work Phone: [facility] 02-17-2024 09:58-0400 SaO2% (BldA) [Mass fraction] 98 % Jovanna [place] DO Work Phone: [facility] 02-17-2024 09:58-0400 Systolic blood pressure 154 mm[Hg] Jovanna [place] DO Work Phone: [facility] 08-12-2023 10:47-0500 Body height 182.9 cm Jovanna [place] DO Work Phone: [facility] 08-12-2023 10:47-0500 Body weight 120.2 kg Jovanna [place] DO Work Phone: [facility] 08-12-2023 10:47-0500 Diastolic blood pressure 80 mm[Hg] Jovanna [place] DO Work Phone: [facility] 08-12-2023 10:47-0500 Heart rate 82 /min Jovanna [place] DO Work Phone: [facility] 08-12-2023 10:47-0500 SaO2% (BldA) [Mass fraction] 98 % Jovanna [place] DO Work Phone: [facility] 08-12-2023 10:47-0500 Systolic blood pressure 120 mm[Hg] Jovanna [place] DO Work Phone: [facility] 05-11-2023 11:06-0500 Body height 182.9 cm Emad Nukta MD Work Phone: [facility] 05-11-2023 11:06-0500 Body weight 114.31 kg Haile Pollock MD Work Phone: [facility] 05-11-2023 11:06-0500 Diastolic blood pressure 74 mm[Hg] Haile Pollock MD Work Phone: [facility] 05-11-2023 11:06-0500 Heart rate 71 /min Haile Pollock MD Work Phone: [facility] 05-11-2023 11:06-0500 Systolic blood pressure 134 mm[Hg] Haile Pollock MD Work Phone: [facility] 05-10-2023 08:51-0500 Body height 180.3 cm Wes Gates MD Work Phone: [facility] 05-10-2023 08:51-0500 Body weight 116.12 kg Wes Gates MD Work Phone: [facility] 05-10-2023 08:51-0500 Diastolic blood pressure 70 mm[Hg] Wes Gates MD Work Phone: [facility] 05-10-2023 08:51-0500 Heart rate 82 /min Wes Gates MD Work Phone: [facility] 05-10-2023 08:51-0500 SaO2% (BldA) [Mass fraction] 97 % Wes Gates MD Work Phone: [facility] 05-10-2023 08:51-0500 Systolic blood pressure 120 mm[Hg] Wes Gates MD Work Phone: [facility] 04-23-2023 10:29-0500 Body weight 114.31 kg Wes Gates MD Work Phone: [facility] 04-23-2023 10:29-0500 Diastolic blood pressure 72 mm[Hg] Wes Gates MD Work Phone: [facility] 04-23-2023 10:29-0500 Heart rate 72 /min Wes Gates MD Work Phone: [facility] 04-23-2023 10:29-0500 SaO2% (BldA) [Mass fraction] 96 % Wes Gates MD Work Phone: [facility] 04-23-2023 10:29-0500 Systolic blood pressure 118 mm[Hg] Wes Gates MD Work Phone: [facility] 01-21-2023 14:18-0400 Heart rate 90 /min Wes Gates MD Work Phone: [facility] 01-21-2023 13:44-0400 Body height 180.3 cm Wes Gates MD Work Phone: [facility] 01-21-2023 13:44-0400 Body weight 113.4 kg Wes Gates MD Work Phone: [facility] 01-21-2023 13:44-0400 Diastolic blood pressure 82 mm[Hg] Wes Gates MD Work Phone: [facility] 01-21-2023 13:44-0400 SaO2% (BldA) [Mass fraction] 96 % Wes Gates MD Work Phone: [facility] 01-21-2023 13:44-0400 Systolic blood pressure 136 mm[Hg] Wes Gates MD Work Phone: [facility] 12-21-2022 15:26-0400 Body height 180.3 cm Wes Gates MD Work Phone: [facility] 12-21-2022 15:26-0400 Body weight 111.86 kg Wes Gates MD Work Phone: [facility] 12-21-2022 15:26-0400 Diastolic blood pressure 88 mm[Hg] Wes Gates MD Work Phone: [facility] 12-21-2022 15:26-0400 Heart rate 88 /min Wes Gates MD Work Phone: [facility] 12-21-2022 15:26-0400 SaO2% (BldA) [Mass fraction] 96 % Wes Gates MD Work Phone: [facility] 12-21-2022 15:26-0400 Systolic blood pressure 146 mm[Hg] Wes Gates MD Work Phone: [facility] 06-16-2022 09:51-0500 Diastolic blood pressure 92 mm[Hg] Rani Haagen HYDRAULIC GOVERNOR ASSEMBLER.WHEAT SHIPPER Work Phone: [facility] 06-16-2022 09:51-0500 Heart rate 82 /min Rani Haagen HYDRAULIC GOVERNOR ASSEMBLER.WHEAT SHIPPER Work Phone: [facility] 06-16-2022 09:51-0500 Systolic blood pressure 141 mm[Hg] Rani Haagen HYDRAULIC GOVERNOR ASSEMBLER.WHEAT SHIPPER Work Phone: [facility] 06-16-2022 09:40-0500 Body weight 113.4 kg Rani Haagen HYDRAULIC GOVERNOR ASSEMBLER.WHEAT SHIPPER Work Phone: [facility] 06-16-2022 09:40-0500 Respiratory rate 18 /min Rani Haagen HYDRAULIC GOVERNOR ASSEMBLER.WHEAT SHIPPER Work Phone: [facility] 06-16-2022 09:40-0500 SaO2% (BldA) [Mass fraction] 98 % Rani Haagen HYDRAULIC GOVERNOR ASSEMBLER.WHEAT SHIPPER Work Phone: [facility] 04-21-2022 09:11-0500 Diastolic blood pressure 92 mm[Hg] Arni Haagen HYDRAULIC GOVERNOR ASSEMBLER.WHEAT SHIPPER Work Phone: [facility] 04-21-2022 09:11-0500 Systolic blood pressure 161 mm[Hg] Rani Haagen HYDRAULIC GOVERNOR ASSEMBLER.WHEAT SHIPPER Work Phone: [facility] 04-21-2022 08:34-0500 Body weight 116.57 kg Rani Haagen HYDRAULIC GOVERNOR ASSEMBLER.WHEAT SHIPPER Work Phone: [facility] 04-21-2022 08:34-0500 Heart rate 82 /min Rani Haagen HYDRAULIC GOVERNOR ASSEMBLER.WHEAT SHIPPER Work Phone: [facility] 04-21-2022 08:34-0500 Respiratory rate 18 /min Rani Haagen HYDRAULIC GOVERNOR ASSEMBLER.WHEAT SHIPPER Work Phone: [facility] 04-21-2022 08:34-0500 SaO2% (BldA) [Mass fraction] 97 % Rani Perales APRN.WHEAT SHIPPER Work Phone: [facility] 03-16-2022 18:20-0400 Body weight 115.67 kg Wes Gates MD Work Phone: [facility] 03-16-2022 18:20-0400 Diastolic blood pressure 72 mm[Hg] Wes Gates MD Work Phone: [facility] 03-16-2022 18:20-0400 Heart rate 76 /min Wes Gates MD Work Phone: [facility] 03-16-2022 18:20-0400 Systolic blood pressure 132 mm[Hg] Wes Gates MD Work Phone: [facility] 10-16-2021 10:40-0400 Body weight 115.21 kg Wes Gates MD Work Phone: [facility] 10-16-2021 10:40-0400 Diastolic blood pressure 82 mm[Hg] Wes Gates MD Work Phone: [facility] 10-16-2021 10:40-0400 Heart rate 80 /min Wes Gates MD Work Phone: [facility] 10-16-2021 10:40-0400 Systolic blood pressure 138 mm[Hg] Wes Gates MD Work Phone: [facility] Encounters Encounter Date Encounter Type Care Provider Facility Start: 01-05-2025 ambulatory UNKNOWN PROVIDER Facili ty:[facility] Start: 01-05-2025 End: 01-05-2025 Subsequent hospital visit by physician [facility] Work Phone: Molecular Imaging Comment on above: Chest pain, unspecif ied type [R07.9] Start: 01-04-2025 End: 01-04-2025 ambulatory Preethi Causey APRN.WHEAT SHIPPER Work Phone: Cardiology Comment on above: Medication Start: 01-04-2025 End: 01-04-2025 Telephone encounter Diamond Zhu RN Cardiology Lab Comment on above: Reminder Call Start: 01-03-2025 End: 01-03-2025 Refill Wes Gates MD Work Phone: Family [facility] [place] Comment on above: Refill Request Start: 12-22-2024 End: 12-22-2024 Patient encounter procedure Wes Gates MD Work Phone: [facility] [place] Comment on above: 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) (Primary Dx); Essential hypertension; Mixed hyperlipidemia; Mild intermittent asthma without complication (HCC); Type 2 diabetes mellitus without complication, without long-term current use of insulin (HCC); Attention deficit hyperactivity disorder (ADHD), unspecified ADHD type; Class 1 obesity with body mass index (BMI) of 34.0 to 34.9 in adult, unspecified obesity type, unspecified whether serious comorbidity present; Hypogonadism in male; Screening for prostate cancer; Chest pain, unspecified type; Lightheaded Start: 12-22-2024 End: 12-22-2024 ambulatory WES GATES Facility:[facility] Start: 12-18-2024 End: 12-18-2024 ambulatory WES GATES Facility:[facility] Start: 12-17-2024 End: 12-17-2024 Emergency department patient visit Dr. Vadim Ng DO Work Phone: -Emergency Department Work Phone: Start: 11-23-2024 End: 11-24-2024 ambulatory Wes Gates MD Work Phone: [facility] [place] Comment on above: Bloodwork Start: 11-17-2024 End: 11-17-2024 ambulatory Devaughn [place] [facility] Comment on above: Acute pain of right shoulder (Primary Dx); Bilateral hip pain Start: 11-03-2024 End: 11-03-2024 Patient encounter procedure Preethi Causey APRN.CNP Work Phone: Cardiology Comment on above: Mixed hyperlipidemia (Primary Dx); Vitamin D deficiency; Vitamin B12 deficiency; Hypothyroidism, unspecified type; Iron deficiency anemia, unspecified iron deficiency anemia type Start: 11-03-2024 End: 11-03-2024 ambulatory WES GATES Facility:[facility] Start: 10-24-2024 End: 10-24-2024 ambulatory DEVAUGHN CHEN Facility:[facility] Start: 10-06-2024 End: 10-06-2024 ambulatory Wes Gates MD Work Phone: [facility] Comment on above: Question for Sivan Start: 10-03-2024 End: 10-03-2024 ambulatory Devaughn Chen [facility] Comment on above: Acute pain of right shoulder (Primary Dx); Bilateral hip pain Start: 10-03-2024 End: 10-03-2024 ambulatory DEVAUGHN CHEN Facility:[facility] Start: 09-19-2024 End: 09-19-2024 ambulatory Devaughn Chen [facility] Comment on above: Acute pain of right shoulder (Primary Dx); Bilateral hip pain Start: 09-13-2024 End: 09-13-2024 Refill Wes Gates MD Work Phone: [facility] Comment on above: Refill Request Start: 09-05-2024 End: 09-05-2024 ambulatory Devaughn Chen [facility] Comment on above: Acute pain of right shoulder (Primary Dx); Bilateral hip pain Start: 08-31-2024 End: 08-31-2024 ambulatory Devaughn Chen [facility] Comment on above: Acute pain of right shoulder (Primary Dx); Bilateral hip pain Start: 08-28-2024 End: 08-28-2024 Refill Wes Gates MD Work Phone: [facility] Comment on above: Refill Request Medication Problem Start: 08-17-2024 End: 10-17-2024 Follow-up encounter Wes Gates MD Work Phone: Pulmonology [facility] Start: 08-14-2024 End: 08-14-2024 Subsequent hospital visit by physician Zena [facility] [place] Work Phone: Radiology Comment on above: Bilateral hip pain [ M25.551, M25.552] Start: 08-14-2024 End: 08-14-2024 ambulatory WES GATES Facility:[facility] Start: 08-14-2024 End: 08-14-2024 Patient encounter procedure Wes Gates MD Work Phone: [facility] [place] Comment on above: Bilateral hip pain ( Primary Dx); Type 2 diabetes mellitus without complication, without long-term current use of insulin (HCC); Acute pain of right shoulder Start: 07-26-2024 End: 07-26-2024 Refill Haile Pollock MD Work Phone: [facility] Comment on above: Refill Request (ator vastatin (LIPITOR)) Start: 07-21-2024 End: 07-21-2024 ambulatory Wes Gates MD Work Phone: [facility] [place] Comment on above: Blood sugar numbers Start: 07-19-2024 End: 07-19-2024 Refill Jovanna Dunlap Work Phone: Cardiology Comment on above: Refill Request Start: 07-06-2024 End: 07-06-2024 ambulatory JACOB MAYS Facility:[facility] Start: 07-06-2024 End: 07-06-2024 Patient encounter procedure Jacob Mays OD Work Phone: Ophthalmology Comment on above: Type 2 diabetes ramu itus without retinopathy (HCC) (Primary Dx); Dry eye syndrome of bilateral lacrimal glands; Regular astigmatism of both eyes; Presbyopia Start: 06-23-2024 End: 06-23-2024 Patient encounter procedure Wes Gates MD Work Phone: [facility] [place] Comment on above: 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) (Primary Dx); Type 2 diabetes mellitus without complication, without long-term current use of insulin (HCC); Encounter for screening examination for other mental health and behavioral disorders; Screening for depression; Mixed hyperlipidemia; Essential hypertension; Obesity (BMI 30-39.9) Start: 06-23-2024 End: 06-23-2024 ambulatory WES GATES Facility:[facility] Start: 06-19-2024 End: 06-19-2024 ambulatory WES GATES Facility:[facility] Start: 06-16-2024 End: 06-16-2024 ambulatory Wes Gates MD Work Phone: [facility] [place] Start: 06-16-2024 End: 06-16-2024 Patient encounter procedure Wes Gates MD Work Phone: [facility] [place] Comment on above: Upcoming appointment . Start: 06-06-2024 End: 06-06-2024 E-mail encounter from caregiver Jovanna Stubbs Mendoza [place] Work Phone: Cardiology Start: 06-06-2024 End: 06-06-2024 Patient encounter procedure Jovanna Dunlap DO Work Phone: Cardiology Comment on above: 08/17 Appointment Start: 03-02-2024 End: 03-02-2024 ambulatory Wes Gates MD Work Phone: [facility] [place] Comment on above: Wrong glucose strips Start: 02-25-2024 End: 02-25-2024 ambulatory Wes Gates MD Work Phone: [facility] [place] Comment on above: Need a new glucose m onitor Start: 02-17-2024 End: 02-17-2024 ambulatory WES GATES Facility:[facility] Start: 02-17-2024 End: 02-17-2024 Patient encounter procedure Jovanna Dunlap DO Work Phone: Cardiology Comment on above: 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) (Primary Dx); Essential hypertension; Mixed hyperlipidemia Start: 02-06-2024 End: 02-08-2024 Refill Haile Pollock MD Work Phone: [facility] Comment on above: Refill Request Start: 01-21-2024 End: 01-28-2024 Telephone encounter Jovanna Dunlap DO Work Phone: Cardiology Comment on above: Patient Update Start: 09-08-2023 Refill Wes Gates MD Work Phone: [facility] [place] Comment on above: Refill Request Start: 08-12-2023 End: 08-12-2023 Patient encounter procedure Jovanna Dunlap DO Work Phone: Cardiology Comment on above: 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) (Primary Dx); Essential hypertension; Mixed hyperlipidemia Start: 07-29-2023 Telephone encounter Wes Gates MD Work Phone: Family [facility] [place] Comment on above: Results Start: 07-28-2023 ambulatory Wes Gates MD Work Phone: [facility] [place] Comment on above: Medication question Start: 05-17-2023 Telephone encounter Haile borden MD Work Phone: Cardiology Start: 05-12-2023 ambulatory Kenzie Henriquez RN Work Phone: [facility] Start: 05-12-2023 Follow-up encounter Kenzie Henriquez RN Work Phone: Test Analyst Management Comment on above: Transition Of Care ( TCM Follow Up/) Start: 05-11-2023 End: 05-11-2023 Patient encounter procedure Haile Pollock MD Work Phone: [facility] Comment on above: 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) (Primary Dx); Essential hypertension; Obesity, Class I, BMI 30-34.9; S/P angioplasty with stent; Type 2 diabetes mellitus without complication, without long-term current use of insulin (HCC) Start: 05-10-2023 End: 05-10-2023 Patient encounter procedure Wes Gates MD Work Phone: [facility] [place] Comment on above: 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) (Primary Dx); Essential hypertension; Mixed hyperlipidemia; Type 2 diabetes mellitus without complication, without long-term current use of insulin (HCC); S/P angioplasty with stent Start: 04-30-2023 Patient Outreach Kenzie Henriquez RN Work Phone: Test Analyst Management Comment on above: Transition Of Care ( TCM Initial Hospital Discharge 04/29/2023) Start: 04-29-2023 Telephone encounter Anneliese hughes APRN.WHEAT SHIPPER Work Phone: Provider Adult Comment on above: Appointment Start: 04-27-2023 End: 04-29-2023 Evaluation and management of inpatient HAILE POLLOCK Facility:[facility] Start: 04-27-2023 Telephone encounter Rory young MD Work Phone: ID Provider Adult Comment on above: Hospital Admission ( Hospital transfer from [facility] to [facility].) Start: 04-23-2023 End: 04-23-2023 Patient encounter procedure Wes Gates MD Work Phone: [facility] [place] Comment on above: Chest pain, unspecif ied type (Primary Dx); Primary hypertension; Mild intermittent asthma without complication; Type 2 diabetes mellitus without complication, without long-term current use of insulin (HCC) Start: 02-25-2023 End: 02-25-2023 ambulatory [facility] Facility:[facility] Start: 02-18-2023 ambulatory Zahira collado MD Work Phone: LD SURGERY Start: 01-21-2023 Telephone encounter Acosta Roth Dest[place] Comment on above: prescription assista nce Start: 01-21-2023 End: 01-21-2023 Patient encounter procedure Wes Gates MD Work Phone: [facility] [place] Comment on above: Primary hypertension (Primary Dx); Type 2 diabetes mellitus without complication, without long-term current use of insulin (HCC) Start: 12-22-2022 Telephone encounter Wes Gates MD Work Phone: [facility] [place] Comment on above: Results Start: 12-21-2022 End: [...] Wes Gates MD Work Phone: [facility] [place] Comment on above: Patient Update Start: 09-01-2022 End: 09-01-2022 Patient encounter procedure Jacob Mays OD Work Phone: Ophthalmology Comment on above: Type 2 diabetes ramu itus without retinopathy (HCC) (Primary Dx); Dry eye syndrome of bilateral lacrimal glands; Regular astigmatism of both eyes; Presbyopia Start: 07-16-2022 Refill Steve Alvarez DO Work Phone: [facility] [place] Start: 06-16-2022 End: 06-16-2022 Office outpatient visit 25 minutes Rani Perales APRN.WHEAT SHIPPER Work Phone: [facility] [place] Comment on above: Primary hypertension (Primary Dx); Type 2 diabetes mellitus without complication, without long-term current use of insulin (HCC); Screening for colon cancer; Type 2 diabetes mellitus with diabetic neuropathy, without long-term current use of insulin (HCC) Start: 06-09-2022 Refill Steve Alvarez DO Work Phone: [facility] [place] Comment on above: Refill Request Start: 05-13-2022 Refill Wes Gates MD Work Phone: [facility] Comment on above: Refill Request Start: 04-21-2022 End: 04-21-2022 Office outpatient visit 25 minutes Rani Perales APRN.WHEAT SHIPPER Work Phone: [facility] [place] Comment on above: Primary hypertension (Primary Dx); Type 2 diabetes mellitus without complication, without long-term current use of insulin (HCC); Mixed hyperlipidemia Start: 04-20-2022 ambulatory Wes Gates MD Work Phone: [facility] [place] Start: 04-20-2022 Patient encounter procedure Wes Gates MD Work Phone: [facility] [place] Comment on above: Office visits Start: 03-18-2022 Telephone encounter Wes Gates MD Work Phone: [facility] [place] Comment on above: Results Start: 03-16-2022 End: 03-16-2022 Patient encounter procedure Wes Gates MD Work Phone: [facility] [place] Comment on above: Primary hypertension (Primary Dx); Type 2 diabetes mellitus without complication, without long-term current use of insulin (HCC); Muscle cramping; Chronic pain of both knees Start: 03-11-2022 Telephone encounter Wes Gates MD Work Phone: [facility] [place] Comment on above: Patient Update Start: 02-03-2022 Refill Wes Gates MD Work Phone: [facility] Comment on above: Refill Request Start: 02-02-2022 Refill Steve Alvarez DO Work Phone: [facility] [place] Start: 01-22-2022 ambulatory Wes Gates MD Work Phone: [facility] [place] Start: 01-22-2022 Patient encounter procedure Wes Gates MD Work Phone: [facility] [place] Comment on above: My Appointment today Start: 12-31-2021 Telephone encounter Wes Gates MD Work Phone: [facility] [place] Comment on above: Patient Update Start: 10-16-2021 End: 10-16-2021 Patient encounter procedure Wes Gates MD Work Phone: [facility] [place] Comment on above: Primary hypertension (Primary Dx); Type 2 diabetes mellitus without complication, without long-term current use of insulin (HCC); Mixed hyperlipidemia Start: 06-09-2021 Telephone encounter Chata gilmore DO Work Phone: [facility] [place] Comment on above: Appointment Procedures Date Procedure Procedure Detail Performing Clinician Start: 01-05-2025 Myocardial spect mul tiple studies Wes Gates MD Work Phone: Start: 12-17-[address] Vadim Ng DO Work Phone: Start: 06-23-2024 Adult depression scr eening assessment Wes Gates MD Work Phone: Start: 05-11-2023 Ecg routine ecg w/le ast 12 lds i&r only [facility] Provider Start: 02-25-2023 Colonoscopy Wes Martin MD Work Phone: Plan of Treatment Date Care Activity Detail Author Start: 02-25-2033 Screening for malignant neoplasm of colon [facility] Start: 12-22-2025 Annual PCP Team Chronic Disease Visit Annual PCP Team Chronic Disease Visit [facility] Start: 11-03-2025 BP Controlled (<130/80) BP Controlled (<130/80) [facility] Start: 08-14-2025 Annual PCP Team Chronic Disease Visit Annual PCP Team Chronic Disease Visit [facility] Start: 07-10-2025 End: 07-10-2025 Patient encounter procedure 07/10/2025 1:00 PM EST Office Visit [facility] [address], [place] [id number] Jacob Mays, OD [address] [place] [address] 1 YR F/U for diabetic eye exam. Ophthalmology Comment on above: 1 YR F/U for diabetic eye exam. Start: 07-06-2025 End: 07-06-2025 Patient encounter procedure 07/06/2025 2:40 PM EST Office Visit [facility] [place] [address] [place] [address] Wes Gates MD [address] [place] [address] 6 mo follow p [facility] [place] Comment on above: 6 mo follow p Start: 07-06-2025 Glaucoma screening Dilated Retinal Exam [facility] Start: 06-23-2025 Annual PCP Team Chronic Disease Visit Annual PCP Team Chronic Disease Visit [facility] Start: 06-23-2025 Anxiety Screening Anxiety Screening [facility] Start: 06-23-2025 Covid-19 Vaccine ( season) Covid-19 Vaccine ( season) [facility] Comment on above: Postponed from 02/06/2024 (Declined at t his time) Start: 06-23-2025 Depression Screening Depression Screening [facility] Start: 06-23-2025 Diabetic foot examination Diabetic Foot Exam [facility] Start: 06-23-2025 Pneumococcal Vaccine: 50+ (1 of 2 - PCV) Pneumococcal Vaccine: 50+ (1 of 2 - PCV) [facility] Comment on above: Postponed from 1991 (Declined at t his time) Start: 06-20-2025 Hemoglobin A1c measurement HbA1C [facility] Start: 06-19-2025 Hepatitis B screening Urine Albumin:Creatinine Ratio [facility] Start: 06-19-2025 Hepatitis B surface antibody level LDL Cholesterol [facility] Start: 05-18-2025 End: 05-18-2025 Patient encounter procedure 05/18/2025 11:30 AM EST Office Visit Cardiology [address] [place] [id number] Preethi Causey APRN.WHEAT SHIPPER [address] [place] [id number] 6 month follow up Cardiology Comment on above: 6 month follow up Start: 03-21-2025 End: 03-21-2025 Patient encounter procedure 03/21/2025 2:20 PM EDT Office Visit [facility] [place] [address] [place], [place] [phone] Wes Gates MD [address] [place], [place] [id number] 8 week follow up [facility] [place] Comment on above: 8 week follow up Start: 02-05-2025 Influenza vaccination [facility] Start: 01-05-2025 End: 04-06-2025 Follitropin [Units/volume] in Serum or Plasma FOLLICLE STIMULATING HORMONE Lab Routine Hypogonadism in male Expected: 01/05/2025, Expires: 04/06/2025 [facility] Comment on above: Expected: 01/05/2025, Expires: Start: 01-05-2025 End: 04-06-2025 Lutropin [Units/volume] in Serum or Plasma LUTEINIZING HORMONE Lab Routine Hypogonadism in male Expected: 01/05/2025, Expires: 04/06/2025 [facility] Comment on above: Expected: 01/05/2025, Expires: Start: 01-05-2025 End: 04-06-2025 PSA/PROSTATE SPECIFIC ANTIGEN SCREENING PSA/PROSTATE SPECIFIC ANTIGEN SCREENING Lab Routine Screening for prostate cancer Expected: 01/05/2025, Expires: 04/06/2025 [facility] Comment on above: Expected: 01/05/2025, Expires: Start: 01-05-2025 End: 04-06-2025 Testosterone [Mass/volume] in Serum or Plasma TESTOSTERONE, TOTAL BY IMMUNOASSAY (ADULT MALES, OR INDIVIDUALS ON TESTOSTERONE THERAPY) Lab Routine Hypogonadism in male Expected: 01/05/2025, Expires: 04/06/2025 [facility] Work Phone: Comment on above: Expected: 01/05/2025, Expires: Start: 01-05-2025 Subsequent hospital visit by physician 01/05/2025 1:45 PM EDT Hospital Encounter Cardiology Lab [address] [place] [address] Chest pain, unspecified type [R07.9] Cardiology Lab Comment on above: Chest pain, unspecified type [R07.9] Start: 01-05-2025 End: 01-05-2025 Patient encounter procedure Molecular Imaging Comment on above: NM CARDIAC PERF STRESS/PHARM Cleared NM CARDIAC P ERF STRESS/PHARM Start: 12-22-2024 End: 12-22-2024 Patient encounter procedure 12/22/2024 3:40 PM EDT Office Visit [facility] [place] [address] [place], [place] [id number] Wes Gates MD [address] [place], [place] [phone] 6 month follow up. A1c prior [facility] [place] Comment on above: 6 month follow up. A1c prior Start: 12-21-2024 End: 03-22-2025 Hemoglobin A1c in Blood HEMOGLOBIN A1C Lab Routine Type 2 diabetes mellitus without complication, without long-term current use of insulin (HCC) Expected: 12/21/2024, Expires: 03/22/2025 [facility] Work Phone: Comment on above: Expected: 12/21/2024, Expires: Start: 12-17-2024 [facility] Start: 12-17-2024 [facility] Start: 12-17-2024 Hemoglobin A1c measurement HbA1C [facility] Start: 12-04-2024 Influenza vaccination Influenza Vaccine (#1) [facility] Comment on above: Postponed from 02/06/2024 (Declined at t his time) Start: 11-24-2024 End: 02-23-2025 Testosterone [Mass/volume] in Serum or Plasma TESTOSTERONE, TOTAL BY IMMUNOASSAY (ADULT MALES, OR INDIVIDUALS ON TESTOSTERONE THERAPY) Lab Routine Fatigue, unspecified type Expected: 11/24/2024, Expires: 02/23/2025 [facility] Work Phone: Comment on above: Expected: 11/24/2024, Expires: Start: 11-17-2024 End: 11-17-2024 ambulatory 11/17/2024 2:30 PM EDT OT/PT/Speech Visit [facility] [address] [place] [address] Devaughn Chen, PT M25.551,M25.552 (ICD-10-CM) - Bilateral hip pain [facility] Comment on above: M25.551,M25.552 (ICD-10-CM) - Bilateral hip pain Start: 11-10-2024 End: 11-10-2024 ambulatory 11/10/2024 1:45 PM EDT OT/PT/Speech Visit [facility] [address] [place] [address] Devaughn Chen, PT Bilateral hip pain [M25.551, M25.552] [facility] Comment on above: Bilateral hip pain [M25.551, M25.552] Start: 11-03-2024 End: 02-02-2025 25-hydroxyvitamin D3 [Mass/volume] in Serum or Plasma VITAMIN D 25 HYDROXY Lab Routine Vitamin D deficiency Expected: 11/03/2024, Expires: 02/02/2025 [facility] Comment on above: Expected: 11/03/2024, Expires: Start: 11-03-2024 End: 02-02-2025 Cobalamin (Vitamin B12) [Mass/volume] in Serum or Plasma VITAMIN B12 Lab Routine Vitamin B12 deficiency Expected: 11/03/2024, Expires: 02/02/2025 [facility] Comment on above: Expected: 11/03/2024, Expires: Start: 11-03-2024 End: 02-02-2025 Ferritin [Mass/volume] in Serum or Plasma FERRITIN Lab Routine Iron deficiency anemia, unspecified iron deficiency anemia type Expected: 11/03/2024, Expires: 02/02/2025 [facility] Comment on above: Expected: 11/03/2024, Expires: Start: 11-03-2024 End: 02-02-2025 Iron and Iron binding capacity panel - Serum or Plasma IRON AND TIBC Lab Routine Iron deficiency anemia, unspecified iron deficiency anemia type Expected: 11/03/2024, Expires: 02/02/2025 [facility] Comment on above: Expected: 11/03/2024, Expires: Start: 11-03-2024 End: 02-02-2025 Lipoprotein a [Mass/volume] in Serum or Plasma LIPOPROTEIN (A) Lab Routine Mixed hyperlipidemia Expected: 11/03/2024, Expires: 02/02/2025 [facility] Comment on above: Expected: 11/03/2024, Expires: Start: 11-03-2024 End: 02-02-2025 LIPOPROTEIN FRACTIONATION BY NMR WITH LIPIDS LIPOPROTEIN FRACTIONATION BY NMR WITH LIPIDS Lab Routine Mixed hyperlipidemia Expected: 11/03/2024, Expires: 02/02/2025 [facility] Work Phone: Comment on above: Expected: 11/03/2024, Expires: Start: 11-03-2024 End: 02-02-2025 Thyrotropin [Units/volume] in Serum or Plasma THYROID STIMULATING HORMONE Lab Routine Hypothyroidism, unspecified type Expected: 11/03/2024, Expires: 02/02/2025 [facility] Comment on above: Expected: 11/03/2024, Expires: Start: 11-03-2024 End: 02-02-2025 Triiodothyronine (T3) Free [Mass/volume] in Serum or Plasma T3, FREE Lab Routine Hypothyroidism, unspecified type Expected: 11/03/2024, Expires: 02/02/2025 [facility] Comment on above: Expected: 11/03/2024, Expires: Start: 11-03-2024 End: 11-03-2024 Patient encounter procedure 11/03/2024 11:30 AM EDT Office Visit Cardiology [address] [address] Preethi Causey APRN.[employer]HEAT SHIPPER [address] [place] [address] Follow up Cardiology Comment on above: Follow up Start: 10-24-2024 End: 10-24-2024 ambulatory 10/24/2024 12:30 PM EDT OT/PT/Speech Visit [facility] [address] [place] [address] Devaughn Chen, PT Bilateral hip pain [M25.551, M25.552] [facility] Comment on above: Bilateral hip pain [M25.551, M25.552] Start: 10-03-2024 End: 10-03-2024 ambulatory 10/03/2024 11:30 AM EDT OT/PT/Speech Visit [facility] [address] [place] [address] José Miguel Chenn, PT Bilateral hip pain [M25.551, M25.552] [facility] Comment on above: Bilateral hip pain [M25.551, M25.552] Start: 09-19-2024 End: 09-19-2024 ambulatory 09/19/2024 11:30 AM EDT OT/PT/Speech Visit [facility] [address] [place] [address] José Miguel Chenn, PT Bilateral hip pain [M25.551, M25.552] [facility] Comment on above: Bilateral hip pain [M25.551, M25.552] Start: 08-31-2024 End: 08-31-2024 ambulatory 08/31/2024 11:30 AM EDT OT/PT/Speech Visit [facility] [address] [place] [address] Devaughn Chen PT Bilateral hip pain [M25.551, M25.552] [facility] Comment on above: Bilateral hip pain [M25.551, M25.552] Start: 08-17-2024 End: 08-17-2024 Patient encounter procedure 08/17/2024 10:00 AM EDT Office Visit Cardiology [address] [id number] Jovanna Dunlap [address] [place], [place] [id number] 6 month follow up Cardiology Comment on above: 6 month follow up Start: 07-29-2024 Hepatitis B surface antibody level LDL Cholesterol [facility] Start: 07-13-2024 Annual PCP Team Chronic Disease Visit Annual PCP Team Chronic Disease Visit [facility] Start: 07-13-2024 BP Controlled (<130/80) BP Controlled (<130/80) [facility] Start: 07-13-2024 Covid-19 Vaccine (#1) Covid-19 Vaccine (#1) [facility] Comment on above: Postponed from 1972 (Declined at t his time) Start: 07-13-2024 Covid-19 Vaccine ( season) Covid-19 Vaccine ( season) [facility] Comment on above: Postponed from 02/05/2023 (Declined at t his time) Start: 07-13-2024 Diabetic foot examination Diabetic Foot Exam [facility] Start: 07-13-2024 Hepatitis B Vaccine (1 of 3 - 19+ 3-dose series) Hepatitis B Vaccine (1 of 3 - 19+ 3-dose series) [facility] Comment on above: Postponed from 1991 (Declined at t his time) Start: 07-13-2024 Hepatitis B Vaccine (1 of 3 - 3-dose series) Hepatitis B Vaccine (1 of 3 - 3-dose series) [facility] Comment on above: Postponed from 1972 (Declined at t his time) Start: 07-13-2024 Pneumococcal vaccination Pneumococcal Vaccine (1 of 2 - PCV) [facility] Comment on above: Postponed from 1978 (Declined at t his time) Start: 07-13-2024 Shingrix Vaccine (1 of 2) Shingrix Vaccine (1 of 2) [facility] Comment on above: Postponed from 2022 (Declined at t his time) Start: 07-13-2024 Spirometry Spirometry [facility] Comment on above: Postponed from 1990 (Declined at t his time) Start: 07-13-2024 Urine microalbumin profile DTaP,Tdap,Td Vaccine (1 - Tdap) [facility] Comment on above: Postponed from 1991 (Declined at t his time) Start: 07-06-2024 End: 07-06-2024 Patient encounter procedure 07/06/2024 9:00 AM EST Office Visit [facility] [address] [place] [id number] Jacob Mays, OD [address] [place] [address] Diabetic Eye Exam Ophthalmology Comment on above: Diabetic Eye Exam Start: 06-23-2024 End: 06-23-2024 Patient encounter procedure 06/23/2024 10:40 AM EST Office Visit [facility] [place] [address] [place] [address] Wes Gates MD [address] [place] [address] 6 month follow up [facility] Comment on above: 6 month follow up Start: 06-16-2024 End: 09-15-2024 CBC W Auto Differential panel - Blood COMPLETE BLOOD COUNT AND DIFFERENTIAL Lab Routine Type 2 diabetes mellitus without complication, without long-term current use of insulin (HCC) Expected: 06/16/2024, Expires: 09/15/2024 [facility] Comment on above: Expected: 06/16/2024, Expires: Start: 06-16-2024 End: 09-15-2024 Comprehensive metabolic 2000 panel - Serum or Plasma COMPREHENSIVE METABOLIC PANEL Lab Routine Type 2 diabetes mellitus without complication, without long-term current use of insulin (HCC) Mixed hyperlipidemia Essential hypertension Expected: 06/16/2024, Expires: 09/15/2024 [facility] Work Phone: Comment on above: Expected: 06/16/2024, Expires: Start: 06-16-2024 End: 09-15-2024 Hemoglobin A1c in Blood HEMOGLOBIN A1C Lab Routine Type 2 diabetes mellitus without complication, without long-term current use of insulin (HCC) Expected: 06/16/2024, Expires: 09/15/2024 [facility] Comment on above: Expected: 06/16/2024, Expires: Start: 06-16-2024 End: 09-15-2024 Lipid 1996 panel - Serum or Plasma LIPID PANEL BASIC Lab Routine Type 2 diabetes mellitus without complication, without long-term current use of insulin (HCC) Coronary artery disease involving [place] coronary artery of [place] heart with unstable angina pectoris (HCC) Mixed hyperlipidemia Essential hypertension Expected: 06/16/2024, Expires: 09/15/2024 [facility] Comment on above: Expected: 06/16/2024, Expires: Start: 06-16-2024 End: 09-15-2024 Microalbumin/Creatinine [Mass Ratio] in Urine ALBUMIN/CREATININE RATIO, URINE Lab Routine Type 2 diabetes mellitus without complication, without long-term current use of insulin (HCC) Expected: 06/16/2024, Expires: 09/15/2024 [facility] Comment on above: Expected: 06/16/2024, Expires: Start: 05-10-2024 Annual PCP Team Chronic Disease Visit Annual PCP Team Chronic Disease Visit [facility] Start: 05-10-2024 BP Controlled (<130/80) BP Controlled (<130/80) [facility] Start: 05-10-2024 Hepatitis B screening Urine Albumin:Creatinine Ratio [facility] Start: 04-24-2024 Hepatitis B surface antibody level LDL Cholesterol [facility] Start: 04-23-2024 Annual PCP Team Chronic Disease Visit Annual PCP Team Chronic Disease Visit [facility] Start: 04-23-2024 BP Controlled (<130/80) BP Controlled (<130/80) [facility] Start: 02-17-2024 End: 02-17-2024 Patient encounter procedure 02/17/2024 10:00 AM EDT Office Visit Cardiology [address] [id number] Jovanna Dunlap, [address] [place] [address] 6 month follow up Cardiology Comment on above: 6 month follow up Start: 02-06-2024 Covid-19 Vaccine ( season) Covid-19 Vaccine ( season) [facility] Start: 02-06-2024 Covid-19 Vaccine ( season) Covid-19 Vaccine ( season) [facility] Start: 02-06-2024 Influenza vaccination [facility] Start: 01-27-2024 Hemoglobin A1c measurement HbA1C [facility] Start: 01-22-2024 ANNUAL PCP TEAM CHRONIC DISEASE VISIT ANNUAL PCP TEAM CHRONIC DISEASE VISIT [facility] Start: 12-22-2023 ANNUAL PCP TEAM CHRONIC DISEASE VISIT ANNUAL PCP TEAM CHRONIC DISEASE VISIT [facility] Start: 12-05-2023 Influenza vaccination Influenza Vaccine (#1) [facility] Comment on above: Postponed from 02/05/2023 (Declined at t his time) Start: 10-27-2023 Hemoglobin A1c measurement HbA1C [facility] Start: 10-27-2023 Hemoglobin A1c/Hemoglobin.total in Blood HbA1C [facility] Start: 09-02-2023 Glaucoma screening Dilated Retinal Exam [facility] Start: 09-02-2023 Hepatitis C antibody, confirmatory test DILATED RETINAL EXAM [facility] Start: 07-05-2023 End: 10-04-2023 Hemoglobin A1c in Blood HGB A1C Lab Routine Mixed hyperlipidemia Expected: 07/05/2023, Expires: 10/04/2023 [facility] Work Phone: Comment on above: Expected: 07/05/2023, Expires: Start: 07-05-2023 End: 10-04-2023 Hepatic function 2000 panel - Serum or Plasma HEPATIC FUNCTION PNL Lab Routine Mixed hyperlipidemia Expected: 07/05/2023, Expires: 10/04/2023 [facility] Work Phone: Comment on above: Expected: 07/05/2023, Expires: Start: 07-05-2023 End: 10-04-2023 Lipid 1996 panel - Serum or Plasma LIPID PANEL BASIC Lab Routine Type 2 diabetes mellitus without complication, without long-term current use of insulin (HCC) Expected: 07/05/2023, Expires: 10/04/2023 [facility] Work Phone: Comment on above: Expected: 07/05/2023, Expires: Start: 06-16-2023 3 comp foot exam completed DIABETIC FOOT EXAM [facility] Start: 06-16-2023 ANNUAL PCP TEAM CHRONIC DISEASE VISIT ANNUAL PCP TEAM CHRONIC DISEASE VISIT [facility] Start: 06-16-2023 COVID-19 VACCINE (#1) COVID-19 VACCINE (#1) [facility] Comment on above: Postponed from 1972 (Declined at t his time) Start: 06-16-2023 HEPATITIS B (1 of 3 - 3-dose series) HEPATITIS B (1 of 3 - 3-dose series) [facility] Comment on above: Postponed from 1972 (Declined at t his time) Start: 06-16-2023 Hepatitis B Vaccine (1 of 3 - 3-dose series) Hepatitis B Vaccine (1 of 3 - 3-dose series) [facility] Comment on above: Postponed from 1972 (Declined at t his time) Start: 06-16-2023 PNEUMOCOCCAL (1 - PCV) PNEUMOCOCCAL (1 - PCV) [facility] Comment on above: Postponed from 1978 (Declined at t his time) Start: 06-16-2023 Pneumococcal vaccination Pneumococcal Vaccine (1 - PCV) [facility] Comment on above: Postponed from 1978 (Declined at t his time) Start: 06-16-2023 SHINGRIX VACCINE (1 of 2) SHINGRIX VACCINE (1 of 2) [facility] Comment on above: Postponed from 2022 (Declined at t his time) Start: 06-16-2023 Urine microalbumin profile [facility] Comment on above: Postponed from 1991 (Declined at t his time) Start: 05-10-2023 End: 08-09-2023 Basic metabolic 2000 panel - Serum or Plasma [facility] Work Phone: Comment on above: Expected: 05/10/2023, Expires: 4 Start: 04-21-2023 ANNUAL PCP TEAM CHRONIC DISEASE VISIT ANNUAL PCP TEAM CHRONIC DISEASE VISIT [facility] Start: 03-23-2023 Hemoglobin A1c/Hemoglobin.total in Blood HBA1C [facility] Start: 03-17-2023 Hepatitis B screening URINE ALBUMIN:CREATININE RATIO [facility] Start: 03-17-2023 Hepatitis B surface antibody level LDL CHOLESTEROL [facility] Start: 03-16-2023 ANNUAL PCP TEAM CHRONIC DISEASE VISIT ANNUAL PCP TEAM CHRONIC DISEASE VISIT [facility] Start: 02-05-2023 Influenza vaccination [facility] Start: 12-21-2022 End: 02-20-[address]c in Blood [facility] Work Phone: Comment on above: Expected: 12/21/2022, Expires: 3 Start: 12-21-2022 End: 02-20-[address] UR [facility] Work Phone: Comment on above: Expected: 12/21/2022, Expires: 3 Start: 12-04-2022 Influenza vaccination INFLUENZA (#1) [facility] Comment on above: Postponed from 02/05/2022 (Declined at t his time) Start: 10-16-2022 3 comp foot exam completed DIABETIC FOOT EXAM [facility] Start: 10-16-2022 ANNUAL PCP TEAM CHRONIC DISEASE VISIT ANNUAL PCP TEAM CHRONIC DISEASE VISIT [facility] Start: 07-05-2022 Hepatitis B screening URINE ALBUMIN:CREATININE RATIO [facility] Start: 07-05-2022 Hepatitis B surface antibody level LDL CHOLESTEROL [facility] Start: 06-17-2022 Hemoglobin A1c/Hemoglobin.total in Blood HBA1C [facility] Start: 06-16-2022 End: 08-16-2022 Hemoglobin A1c in Blood HGB A1C Lab Routine Type 2 diabetes mellitus without complication, without long-term current use of insulin (HCC) Expected: 06/16/2022, Expires: 08/16/2022 [facility] Work Phone: Comment on above: Expected: 06/16/2022, Expires: 3 Start: 06-07-2022 DEPRESSION ASSESSMENT DEPRESSION ASSESSMENT [facility] Start: 04-29-2022 End: 06-29-2022 Glucose [Mass/volume] in Serum or Plasma GLUCOSE RANDOM BLD Lab Routine Type 2 diabetes mellitus without complication, without long-term current use of insulin (HCC) Expected: 04/29/2022, Expires: 06/29/2022 [facility] Work Phone: Comment on above: Expected: 04/29/2022, Expires: 3 Start: 04-29-2022 End: 06-29-2022 Hepatic function 2000 panel - Serum or Plasma HEPATIC FUNCTION PNL Lab Routine Type 2 diabetes mellitus without complication, without long-term current use of insulin (HCC) Expected: 04/29/2022, Expires: 06/29/2022 [facility] Work Phone: Comment on above: Expected: 04/29/2022, Expires: 3 Start: 04-29-2022 End: 06-29-2022 Lipid 1996 panel - Serum or Plasma LIPID PANEL BASIC Lab Routine Type 2 diabetes mellitus without complication, without long-term current use of insulin (HCC) Expected: 04/29/2022, Expires: 06/29/2022 [facility] Work Phone: Comment on above: Expected: 04/29/2022, Expires: 3 Start: 2022 Hemoglobin A1c/Hemoglobin.total in Blood HBA1C [facility] Start: 2022 SHINGRIX VACCINE (1 of 2) SHINGRIX VACCINE (1 of 2) [facility] Start: 03-16-2022 End: 05-16-2022 ALBUMIN/CREAT RATIO RND UR ALBUMIN/CREAT RATIO RND UR Lab Routine Primary hypertension Type 2 diabetes mellitus without complication, without long-term current use of insulin (HCC) Expected: 03/16/2022, Expires: 05/16/2022 [facility] Work Phone: Comment on above: Expected: 03/16/2022, Expires: 2 Start: 03-16-2022 End: 05-16-2022 CBC W Auto Differential panel - Blood CBC + DIFF Lab Routine Primary hypertension Type 2 diabetes mellitus without complication, without long-term current use of insulin (HCC) Expected: 03/16/2022, Expires: 05/16/2022 [facility] Work Phone: Comment on above: Expected: 03/16/2022, Expires: 2 Start: 03-16-2022 End: 05-16-2022 Comprehensive metabolic 2000 panel - Serum or Plasma COMP METABOLIC PANEL Lab Routine Primary hypertension Type 2 diabetes mellitus without complication, without long-term current use of insulin (HCC) Expected: 03/16/2022, Expires: 05/16/2022 [facility] Work Phone: Comment on above: Expected: 03/16/2022, Expires: 2 Start: 03-16-2022 End: 05-16-2022 Hemoglobin A1c in Blood HGB A1C Lab Routine Primary hypertension Type 2 diabetes mellitus without complication, without long-term current use of insulin (HCC) Expected: 03/16/2022, Expires: 05/16/2022 [facility] Work Phone: Comment on above: Expected: 03/16/2022, Expires: 2 Start: 03-16-2022 End: 05-16-2022 Lipid 1996 panel - Serum or Plasma LIPID PANEL BASIC Lab Routine Primary hypertension Type 2 diabetes mellitus without complication, without long-term current use of insulin (HCC) Expected: 03/16/2022, Expires: 05/16/2022 [facility] Work Phone: Comment on above: Expected: 03/16/2022, Expires: 2 Start: 02-05-2022 Influenza vaccination [facility] Start: 12-31-2021 End: 03-02-2022 Hemoglobin A1c in Blood HGB A1C Lab Routine Type 2 diabetes mellitus without complication, without long-term current use of insulin (HCC) Expected: 12/31/2021, Expires: 03/02/2022 [facility] Work Phone: Comment on above: Expected: 12/31/2021, Expires: 2 Start: 10-16-2021 End: 12-16-2021 Basic metabolic 2000 panel - Serum or Plasma BASIC METABOLIC PNL Lab Routine Primary hypertension Expected: 10/16/2021, Expires: 12/16/2021 [facility] Work Phone: Comment on above: Expected: 10/16/2021, Expires: 2 Start: 10-16-2021 End: 12-16-2021 Hemoglobin A1c/Hemoglobin.total in Blood HGB A1C Lab Routine Type 2 diabetes mellitus without complication, without long-term current use of insulin (HCC) Expected: 10/16/2021, Expires: 12/16/2021 [facility] Work Phone: Comment on above: Expected: 10/16/2021, Expires: 2 Start: 10-16-2021 End: 12-16-2021 HEPATIC FUNCTION PNL HEPATIC FUNCTION PNL Lab Routine Mixed hyperlipidemia Expected: 10/16/2021, Expires: 12/16/2021 [facility] Work Phone: Comment on above: Expected: 10/16/2021, Expires: 2 Start: 10-16-2021 End: 12-16-2021 LIPID PANEL BASIC LIPID PANEL BASIC Lab Routine Mixed hyperlipidemia Expected: 10/16/2021, Expires: 12/16/2021 [facility] Work Phone: Comment on above: Expected: 10/16/2021, Expires: 2 Start: 10-02-2021 Hemoglobin A1c/Hemoglobin.total in Blood HBA1C [facility] Start: 08-29-2021 Hepatitis C antibody, confirmatory test DILATED RETINAL EXAM [facility] Start: 06-07-2021 DEPRESSION ASSESSMENT DEPRESSION ASSESSMENT [facility] Start: 2017 COLOGUARD (FIT-DNA) COLOGUARD (FIT-DNA) [facility] Start: 2017 Colonoscopy COLONOSCOPY [facility] Start: 2017 COLORECTAL CANCER SCREENING COLORECTAL CANCER SCREENING [facility] Start: [address] COLONOGRAPHY [facility] Start: 2017 FECAL OCCULT BLOOD FECAL OCCULT BLOOD [facility] Start: 2017 Screening for malignant neoplasm of colon [facility] Start: 2017 SIGMOIDOSCOPY SIGMOIDOSCOPY [facility] Start: 1991 HEPATITIS B (1 of 3 - Risk 3-dose series) HEPATITIS B (1 of 3 - Risk 3-dose series) [facility] Start: 1991 Hepatitis B Vaccine (1 of 3 - 19+ 3-dose series) Hepatitis B Vaccine (1 of 3 - 19+ 3-dose series) [facility] Start: 1991 Pneumococcal Vaccine: 50+ (1 of 2 - PCV) Pneumococcal Vaccine: 50+ (1 of 2 - PCV) [facility] Start: 1991 Urine microalbumin profile [facility] Start: 1990 Anxiety Screening Anxiety Screening [facility] Start: 1990 BP CONTROLLED (<130/80) BP CONTROLLED (<130/80) [facility] Start: 1990 Depression Screening Depression Screening [facility] Start: 1990 SPIROMETRY SPIROMETRY [facility] Start: 1988 ONE PNEUMOVAX PRIOR TO AGE 65 ONE PNEUMOVAX PRIOR TO AGE 67 [facility] Start: 1984 Adult depression screening assessment DEPRESSION SCREENING [facility] Start: 1978 PNEUMOCOCCAL (1 - PCV) PNEUMOCOCCAL (1 - PCV) [facility] Start: 1977 COVID-19 VACCINE (#1) COVID-19 VACCINE (#1) [facility] Start: 1972 COVID-19 VACCINE (#1) COVID-19 VACCINE (#1) [facility] Start: 1972 HEPATITIS B (1 of 3 - 3-dose series) HEPATITIS B (1 of 3 - 3-dose series) [facility] ECG COMPLETE ECG COMPLETE ECG Routine Chest pain, unspecified type Ordered: 04/23/2023 [facility] Work Phone: Comment on above: Ordered: 04/23/2023 ECG COMPLETE [facility] Work Phone: Comment on above: Ordered: 05/11/2023 End: 01-21-2026 NM Heart Perfusion W stress and W radionuclide IV NM CARDIAC PERF STRESS/PHARM Radiology Routine Chest pain, unspecified type Lightheaded 1 Occurrences starting 12/22/2024 until 01/21/2026 [facility] Comment on above: 1 Occurrences starting 12/22/2024 until 01/21/2026 Patient Education ED Heat Exhaus tion ED Vomiting (Adult) [facility] Work Phone: End: 09-13-2025 XR HIP BILATERAL 5V PEL/AP/LAT EACH HIP XR HIP BILATERAL 5V PEL/AP/LAT EACH HIP Radiology Routine Bilateral hip pain 1 Occurrences starting 08/14/2024 until 09/13/2025 [facility] Work Phone: Comment on above: 1 Occurrences starting 08/14/2024 until 09/13/2025 XR HIP BILATERAL 5V PEL/AP/LAT EACH HIP XR HIP BILATERAL 5V PEL/AP/LAT EACH HIP Radiology Routine Bilateral hip pain 08/14/2024 4:44 PM EDT [facility] End: 09-13-2025 XR Shoulder - right 3 Views XR SHOULDER GENERAL 3V OR MORE AP/TRUE AP/OTHER RIGHT Radiology Routine Acute pain of right shoulder 1 Occurrences starting 08/14/2024 until 09/13/2025 [facility] Comment on above: 1 Occurrences starting 08/14/2024 until 09/13/2025 XR Shoulder - right 3 Views XR SHOULDER GENERAL 3V OR MORE AP/TRUE AP/OTHER RIGHT Radiology Routine Acute pain of right shoulder 08/14/2024 4:44 PM EDT [facility] Payers Date Payer Category Payer Self-pay 2023 Unknown [id number] 2023 Medicaid [id number] Unknown [id number] Unknown [id number] Social History Date Type Detail Facility Start: 08-29-2020 End: 03-16-2022 Tobacco smoking status NHIS Never smoked tobacco [facility] Start: 10-16-2021 End: 12-22-2024 Alcohol intake Current non-drinker of alcohol (finding) [facility] Start: 08-07-2021 End: 05-18-2022 History SDOH Social Connections Phone 98 [facility] Start: 08-07-2021 End: 05-18-2022 History SDOH Social Connections Living 3 [facility] Start: 08-07-2021 End: 05-18-2022 History SDOH Physical Activity DPW 5 [facility] Start: 08-07-2021 History SDOH Physica l Activity MPS 6 [facility] Start: 08-07-2021 End: 05-18-2022 History SDOH Stress 1 [facility] Start: 08-07-2021 End: 05-18-2022 History SDOH Housing Unable to Pay 2 [facility] [facility] Start: 1970 Sex Assigned At Male C [facility] Start: 10-06-2021 End: 04-21-2022 Exposure to SARS-CoV-2 (event) Not sure [facility] Start: 08-29-2020 End: 03-16-2022 Tobacco use and exposure Smokeless tobacco non-user [facility] Start: 05-18-2022 History SDOH Physica l Activity MPS 9 [facility] Start: 05-17-2022 End: 12-25-2022 History of Social function [facility] Start: 05-17-2022 End: 12-25-2022 Social connection and isolation panel [facility] In a typical week, h ow many times do you talk on the telephone with family, friends, or neighbors? Patient refused [facility] Are you now , , , , never or living with a partner? [facility] Do you feel stress - tense, restless, nervous, or anxious, or unable to sleep at night because your mind is troubled all the time - these days [OSQ] Not at all [facility] (I/We) worried wheth er (my/our) food would run out before (I/we) got money to buy more. DK or Refused [facility] In the past 12 month s, was there a time when you were not able to pay the mortgage or rent on time? No [facility] Start: 08-04-2021 Gender identity Identifies as male gender (finding) [facility] Start: 08-04-2021 Sexual orientation Heterosexual (quinn savage) [facility] (I/We) worried wheth er (my/our) food would run out before (I/we) got money to buy more. Never true [facility] Work Phone: Start: 01-10-2014 Alcohol Alcohol [facility] Start: 01-10-2014 Lives Lives [facility] Start: 01-10-2014 Tobacco Use Tobacco Use [facility] Medical Equipment Procedure Code Equipment Code Equipment Origin al Text Equipment Identifier Dates Patch Ventralex St Sepra Sorbaflex 3.2in Large [employer] - [id number] Start: 01-08-2016 Test blood sugar (s) 1 times daily. Dx: Type 2 DM - Uncontrolled E11.65 Insulin: No [id number], [id number], [id number], [id number] Start: 05-10-2023 End: 09-13-2024 Comment on above: Test blood sugar(s) 1 times daily. Dx: Type 2 DM - Uncontrolled E11.65 Insulin: No Goals Date Patient Goal Desired Activity /State Personal health goal Functional Status Date Assessment Result Facility 04-29-2023 Are you deaf, or do you have serious difficulty hearing No 04/29/2023 1:36 PM Kem Lira RN [facility] 04-29-2023 Are you blind, or do you have serious difficulty seeing, even when wearing glasses No 04/29/2023 1:36 PM Kem Lira RN [facility] 04-29-2023 Do you have serious difficulty walking or climbing stairs No 04/29/2023 1:36 PM Kem Lira RN [facility] 04-29-2023 Do you have difficul ty dressing or bathing No 04/29/2023 1:36 PM EST Kem Correia RN No [facility] 04-29-2023 Because of a physica l, mental, or emotional condition, do you have difficulty doing errands alone such as visiting a physician's office or shopping No 04/29/2023 1:36 PM EST Kem Correia RN No [facility] Mental Status Date Assessment Result Facility 12-17-2024 Cognitive function Awake;Alert;A ppropriate; Follows Commands [facility] Work Phone: 04-29-2023 Because of a physica l, mental, or emotional condition, do you have serious difficulty concentrating, remembering, or making decisions No 04/29/2023 1:36 PM EST Kem Correia RN No [facility] Clinical Notes 06-09-2021 to 01-05-2025 Keyona Quinn, RT(R) - 01/05/2025 12:45 PM EDTTelephone Encounter - Diamond Zhu RN - 01/04/2025 3:24 PM EDTTelephone Encounter - Diamond Zhu RN - 01/04/2025 3:24 PM EDT Note Date & Type Note Facility 01-05-2025 History of Presen t illness Narrative RADIOLOGY SERVICE PROGRESS NOTE SERVICE DATE: 01/05/2025 SERVICE TIME: 1:53 PM PATIENT IDENTITY VERIFICATION COMPLETED USING TWO (2) STANDARD IDENTIFIERS: Name and Date of confirmed by patient verbally and Name and Date of confirmed by identification band FALL SCREENING: Has the patient had 2 falls in the last year or 1 fall with injury or currently using an Ambulatory Assistive Device (Walker, Cane, Wheelchair, Crutches, etc.)? No PATIENT GENDER DATA: .male ALLERGIES: Reviewed and unchanged MEDICATIONS REVIEWED: Yes PATIENT RELEVANT IMPLANT DATA REVIEWED: Not Applicable PATIENT PRESENTS WITH AN IMPLANTABLE OR ATTACHED DATA INPUT CLERK: No CREATININE: Creatinine Date Value Ref Range Status 06/19/2024 0.80 0.73 - 1.22 mg/dL Final 05/10/2023 0.75 0.73 - 1.22 mg/dL Final 04/29/2023 0.72 (L) 0.73 - 1.22 mg/dL Final Estimated Glomerular Filtration Rate Date Value Ref Range Status 06/19/2024 106 >=60 mL/min/1.73m Final Comment: Estimated Glomerular Filtration Rate (eGFR) [...] Status 07/05/2021 >60 Final P.O.C.T. RESULTS: N/A January 05, [address] PERFORMED: No IV SITE: Ambulatory: A peripheral IV was started in the Left hand with a Angio cath: 22 gauge. POST EXAM PIV STATUS: Discontinued PROCEDURE TYPE: NM Stress: 12mCi [id number] was administered IV for Rest Imaging at 1305 by roberto. 35.8 mCi To98l-Fvjmkhz was administered IV for Stress Imaging at 1353 by roberto. ADMINISTRATION TIME: 1305 PATIENT DISCHARGED TO: Ambulatory patient, left NM department area. Is this a therapy: No A Diagnostic radioactive procedure has taken place, with no further precautions necessary other than routine body substance precautions. More information regarding radiation safety can be found using this link: [email or web address]%20N uclear%20Medicine%20Procedures.p df SIGNATURE: URVASHI Hodge) PATIENT NAME: Sivan Tamayo DATE: January 05, 2025 TIME: 1:53 PM PAGER/CONTACT #: documented in this encounter [facility] 01-05-2025 Note HNO ID: [id number] Author: KEYONA QUINN RT(R) Service: ? Author Type: Clinical Documentation Manager Type: Progress Notes Filed: 01/05/2025 13:54 Note Text: RADIOLOGY SERVICE PROGRESS NOTE SERVICE DATE: 01/05/2025 SERVICE TIME: 1:53 PM PATIENT IDENTITY VERIFICATION COMPLETED USING TWO (2) STANDARD IDENTIFIERS: Name and Date of confirmed by patient verbally and Name and Date of confirmed by identification band FALL SCREENING: Has the patient had 2 falls in the last year or 1 fall with injury or currently using an Ambulatory Assistive Device (Walker, Cane, Wheelchair, Crutches, etc.)? No PATIENT GENDER DATA: .male ALLERGIES: Reviewed and unchanged MEDICATIONS REVIEWED: Yes PATIENT RELEVANT IMPLANT DATA REVIEWED: Not Applicable PATIENT PRESENTS WITH AN IMPLANTABLE OR ATTACHED DATA INPUT CLERK: No CREATININE: Creatinine Date Value Ref Range Status 06/19/2024 0.80 0.73 - 1.22 mg/dL Final 05/10/2023 0.75 0.73 - 1.22 mg/dL Final 04/29/2023 0.72 (L) 0.73 - 1.22 mg/dL Final Estimated Glomerular Filtration Rate Date Value Ref Range Status 06/19/2024 106 >=60 mL/min/1.73m? Final Comment: Estimated Glomerular Filtration [...] Status 07/05/2021 >60 Final P.O.C.T. RESULTS: N/A January 05, [address] PERFORMED: No IV SITE: Ambulatory: A peripheral IV was started in the Left hand with a Angio cath: 22 gauge. POST EXAM PIV STATUS: Discontinued PROCEDURE TYPE: NM Stress: 12mCi Ev36u-Dqfrtks was administered IV for Rest Imaging at 1305 by roberto. 35.8 mCi Eu58x-Nqnuyvq was administered IV for Stress Imaging at 1353 by roberto. ADMINISTRATION TIME: 1305 PATIENT DISCHARGED TO: Ambulatory patient, left ID department area. Is this a therapy: No A Diagnostic radioactive procedure has taken place, with no further precautions necessary other than routine body substance precautions. More information regarding radiation safety can be found using this link: [email or web address] [email or web address]-% 20Diagnostic%20Nuclear%20Medicin e%20Procedures.pdf SIGNATURE: RT Naveen(R) PATIENT NAME: Sivan Tamayo DATE: January 05, 2025 TIME: 1:53 PM PAGER/CONTACT #: [facility] 01-04-2025 Telephone encounter Note Spoke to pt regarding reminder and instructions for stress test tomorrow. This included where to check in, length of test and no caffeine for 12 hours prior to test. [facility] 01-04-2025 Miscellaneous Notes Spoke to pt regarding reminder and instructions for stress test tomorrow. This included where to check in, length of test and no caffeine for 12 hours prior to test. documented in this encounter [facility] 01-03-2025 Telephone encounter Note Prescription Refill Information The patient has been identified by name and date of : Yes Caregiver verified no other encounters exist for this prescription request: Yes Caregiver confirmed with patient/requestor that no other refills are due, in the near future, with this provider at this time: Yes The last office visit in the department: 12/22/24 Does the patient have a future office visit with this provider/department: Yes 03/21/25 Requested Prescriptions Pending Prescriptions Disp Refills DULoxetine DR (CYMBALTA) 30 mg capsule 30 capsule 2 Sig: Take 1 capsule by mouth once daily. Estelle Castano LPN January 03, 2025 4:03 PM [facility] 01-03-2025 Miscellaneous Notes Prescription Refill Information The patient has been identified by name and date of : Yes Caregiver verified no other encounters exist for this prescription request: Yes Caregiver confirmed with patient/requestor that no other refills are due, in the near future, with this provider at this time: Yes The last office visit in the department: 12/22/24 Does the patient have a future office visit with this provider/department: Yes 03/21/25 Requested Prescriptions Pending Prescriptions Disp Refills DULoxetine DR (CYMBALTA) 30 mg capsule 30 capsule 2 Sig: Take 1 capsule by mouth once daily. Estelle Castano LPN January 03, 2025 4:03 PM documented in this encounter [facility] 12-22-2024 Note HNO ID: [id number] Author: WES GATES MD Service: ? Author Type: Physician Type: Progress Notes Filed: 12/22/2024 17:16 Note Text: Sivan Tamayo is a 54-year-old male with a history of DM, presenting for follow-up after a recent ER visit dizziness and emesis, with additional complaints of intermittent chest pain, fatigue, and tremors. HPI Dizziness and Emesis: - Recent ER visit on 12/17 at [facility] for dizziness and emesis. - Symptoms began after being outside for an hour in hot weather. - Had some chest discomfort. - Initial emesis occurred after drinking water; subsequent emesis after consuming electrolytes. - Received IV fluids and Zofran in the ER, with improvement in symptoms. - ER workup included CBC, BMP, troponins, and EKG. - Suspects Jardiance may contribute to dizziness; denies checking blood glucose levels during episodes. - Discussed his amaryl is the most likely culprit for hypoglycemia. Chest Pain: - Intermittent, fleeting, non-radiating chest pain. - Recent episodes described as sharper and lasting longer than previous episodes. - Denies current significant chest pain or dyspnea. - Last stress test was over a year ago. - Does not feel due to his hip issues he can do a treadmill. Fatigue: - Reports significant fatigue, especially in the afternoon around [id number]. - Has a history of sleep apnea and uses a CPAP machine; notes improvement in snoring with weight loss. Tremors: - Persistent hand tremors noted since on cymbalta. Feels the med helps though. Diabetes Mellitus: - Recent hemoglobin A1c of 5.5; previously as high as 9. - Current medications include Jardiance, glimepiride, and Trulicity 3 mg. - Suspects Jardiance may contribute to dizziness. Discussed hydration. ADD: - Currently taking Cymbalta for ADD; reports increased sweating since starting medication. - Recently took Adderall for a week by mistake, leading to increased fatigue after discontinuation. - Denies missing doses of Cymbalta. Low Testosterone: - Recent testosterone level was borderline low. - Sivan's brother has a history of low testosterone and is on injections. MEDICATIONS: Current Outpatient Medications Medication Sig empagliflozin (JARDIANCE) 10 mg tablet Take 10 mg by mouth daily with breakfast. DULoxetine (CYMBALTA) 30 mg capsule Take 1 capsule by mouth once daily. clopidogrel (PLAVIX) 75 mg tablet Take 1 tablet by mouth once daily. dulaglutide (TRULICITY) 3 mg/0.5 mL pen injector [...] 2 DM - Uncontrolled E11.65 Insulin: No blood sugar diagnostic (BLOOD GLUCOSE TEST) test strip Test blood sugar(s) 1 times daily. Dx: Type 2 DM - Uncontrolled E11.65 Insulin: No TRUE METRIX GLUCOSE METER as directed. aspirin 81 mg chewable tablet Take 1 tablet by mouth once daily. No current facility-administered medications for this visit. ALLERGIES: ALLERGIES Allergen Reactions Amlodipine Other: See Comments Facial numbness PAST MEDICAL HISTORY Diagnosis Date ADD (attention deficit disorder) 08/28/2011 Coronary artery disease involving [place] coronary artery of [place] heart with unstable angina pectoris (HCC) Diabetes (HCC) Hypertension 08/28/2011 Mixed hyperlipidemia Obesity S/P angioplasty with stent PAST SURGICAL HISTORY Procedure Laterality Date ARTHROSCOPY KNEE DIAGNOSTIC W/WO SYNOVIAL BX SPX Left 06/07/2014 meniscus OSTECTOMY CALCANEUS SPUR W/WO PLNTAR FASCIAL RLS Left PCI/STENT 04/27/2023 [facility] 04/27/23 PCI x3 (diagonal, pda and [...] and social history today. REVIEW OF SYSTEMS Constitutional: (+) fatigue Head: (-) headache Eyes: (-) blurred vision, (-) double vision Cardiovascular: (+) chest pain Musculoskeletal: (+) hip pain Skin: (+) diaphoresis Neurological: (+) dizziness, (+) presyncope, (+) hand tremor, (-) numbness, (-) tingling, (-) weakness HEALTH MAINTENANCE: Reviewed health maintenance issues today and recommended the following in detail. DTaP,Tdap,Td Vaccine(1 - Tdap) Never done Hepatit (more content not included)... [facility] 12-22-2024 History of Presen t illness Narrative Sivan Tamayo is a 54-year-old male with a history of DM, presenting for follow-up after a recent ER visit dizziness and emesis, with additional complaints of intermittent chest pain, fatigue, and tremors. HPI Dizziness and Emesis: - Recent ER visit on 12/17 at [facility] for dizziness and emesis. - Symptoms began after being outside for an hour in hot weather. - Had some chest discomfort. - Initial emesis occurred after drinking water; subsequent emesis after consuming electrolytes. - Received IV fluids and Zofran in the ER, with improvement in symptoms. - ER workup included CBC, BMP, troponins, and EKG. - Suspects Jardiance may contribute to dizziness; denies checking blood glucose levels during episodes. - Discussed his amaryl is the most likely culprit for hypoglycemia. Chest Pain: - Intermittent, fleeting, non-radiating chest pain. - Recent episodes described as sharper and lasting longer than previous episodes. - Denies current significant chest pain or dyspnea. - Last stress test was over a year ago. - Does not feel due to his hip issues he can do a treadmill. Fatigue: - Reports significant fatigue, especially in the afternoon around [id number]. - Has a history of sleep apnea and uses a CPAP machine; notes improvement in snoring with weight loss. Tremors: - Persistent hand tremors noted since on cymbalta. Feels the med helps though. Diabetes Mellitus: - Recent hemoglobin A1c of 5.5; previously as high as 9. - Current medications include Jardiance, glimepiride, and Trulicity 3 mg. - Suspects Jardiance may contribute to dizziness. Discussed hydration. ADD: - Currently taking Cymbalta for ADD; reports increased sweating since starting medication. - Recently took Adderall for a week by mistake, leading to increased fatigue after discontinuation. - Denies missing doses of Cymbalta. Low Testosterone: - Recent testosterone level was borderline low. - Sivan's brother has a history of low testosterone and is on injections. MEDICATIONS: Current Outpatient Medications Medication Sig empagliflozin (JARDIANCE) 10 mg tablet Take 10 mg by mouth daily with breakfast. DULoxetine (CYMBALTA) 30 mg capsule Take 1 capsule by mouth once daily. clopidogrel (PLAVIX) 75 mg tablet Take 1 tablet by mouth once daily. dulaglutide (TRULICITY) 3 mg/0.5 mL pen injector [...] 2 DM - Uncontrolled E11.65 Insulin: No blood sugar diagnostic (BLOOD GLUCOSE TEST) test strip Test blood sugar(s) 1 times daily. Dx: Type 2 DM - Uncontrolled E11.65 Insulin: No TRUE METRIX GLUCOSE METER as directed. aspirin 81 mg chewable tablet Take 1 tablet by mouth once daily. No current facility-administered medications for this visit. ALLERGIES: ALLERGIES Allergen Reactions Amlodipine Other: See Comments Facial numbness PAST MEDICAL HISTORY Diagnosis Date ADD (attention deficit disorder) 08/28/2011 Coronary artery disease involving [place] coronary artery of [place] heart with unstable angina pectoris (HCC) Diabetes (HCC) Hypertension 08/28/2011 Mixed hyperlipidemia Obesity S/P angioplasty with stent PAST SURGICAL HISTORY Procedure Laterality Date ARTHROSCOPY KNEE DIAGNOSTIC W/WO SYNOVIAL BX SPX Left 06/07/2014 meniscus OSTECTOMY CALCANEUS SPUR W/WO PLNTAR FASCIAL RLS Left PCI/STENT 04/27/2023 [facility] 04/27/23 PCI x3 (diagonal, pda and [...] and social history today. REVIEW OF SYSTEMS Constitutional: (+) fatigue Head: (-) headache Eyes: (-) blurred vision, (-) double vision Cardiovascular: (+) chest pain Musculoskeletal: (+) hip pain Skin: (+) diaphoresis Neurological: (+) dizziness, (+) presyncope, (+) hand tremor, (-) numbness, (-) tingling, (-) weakness HEALTH MAINTENANCE: Reviewed health maintenance issues today and recommended the following in detail. DTaP,Tdap,Td Vaccine(1 - Tdap) Never done Hepatitis B Vaccine(1 of 3 - 19+ 3-dose series) Never done Shingrix Vaccine(1 of 2) Never done LAB REVIEWED: Labs: (12/17) - CBC - BMP - Troponins - Hemoglobin A1c: 5.5 - Vitamin D: normal - B12: normal - Thyroid function: normal - Iron studies: normal - Testosterone: borderline Tests: (12/17) - Orthostatic vital signs: No drop in blood pressure upon standing - EKG VITALS: BP 122/72 Wt 113.9 kg (251 lb) BMI 34.04 kg/m Last 4 Encounter Wt Readings: Date: Wt: 12/22/2024 113.9 kg (251 lb) 11/03/2024 118.3 kg (260 lb 12.9 oz) 08/14/2024 120.7 kg (266 lb) 06/23/2024 127 kg (279 lb 15.8 oz) PHYSICAL EXAMINATION: GENERAL: NAD, alert and oriented. SKIN: Unremarkable, no rash or skin lesions. HEAD: Normocephalic. NECK: Supple, no lymphadenopathy, normal thyroid, no carotid bruits. LUNGS: Clear to auscultation bilaterally, no wheezes/rhonchi/rales. HEART: Regular rate and rhythm, no murmurs. No ectopy. EXTREMITIES: Normal, no deformities, no skin discoloration, no edema. NEURO: Awake, alert and oriented x3, cranial nerves II-XII grossly intact, normal gait, no involuntary motions. ASSESSMENT AND PLAN 1. Coronary artery disease involving [place] coronary artery of [place] heart with unstable angina pectoris (HCC) (I25.110) 2. Chest pain, unspecified type (R07.9) - Intermittent, fleeting, localized, non-radiating chest pain; recent episodes more intense and prolonged. - Recent ER visit on 12/17 due to severe chest pain; EKG and cardiac enzymes were negative. - Ordered a nuclear stress test due to hip pain preventing treadmill use. - Follow-up with cardiology scheduled for May; attempting to expedite appointment. - Advised to seek immediate medical attention for severe chest pain. 3. Essential hypertension (I10) - Blood pressure readings are stable. - Continue current antihypertensive regimen. 4. Mixed hyperlipidemia (E78.2) - Continue current lipid-lowering therapy. 5. Mild intermittent asthma without complication (HCC) (J45.20) - No current exacerbations or complications. - Continue current asthma management plan. 6. Type 2 diabetes mellitus without complication, without long-term current use of insulin (HCC) (E11.9) 7. Lightheaded (R42) - Hemoglobin A1c is 5.5%. - Discontinued glimepiride due to potential hypoglycemia and weight gain. - Continue Jardiance and Trulicity 3 mg. - Monitor blood glucose levels twice daily and during symptomatic episodes; report via Sgnamhart in two weeks. 8. Attention deficit hyperactivity disorder (ADHD), unspecified ADHD type (F90.9) - Currently managed with Cymbalta. - No missed doses reported. 9. Class 1 obesity with body mass index (BMI) of 34.0 to 34.9 in adult, unspecified obesity type, unspecified whether serious comorbidity present (E66.811) - Continue weight management efforts. - Discussed potential improvement in testosterone levels with weight loss. 10. Special screening for malignant neoplasm of colon (Z12.11) - No current concerns; continue routine screening as scheduled. 11. Hypogonadism in male (E29.1) 12. Screening for prostate cancer (Z12.5) - Borderline low testosterone level noted. - Ordered repeat labs in two weeks: FSH, LH, testosterone, and PSA; to be done in the morning. - Discussed risks and benefits of testosterone replacement therapy. (See patient after visit summary for additional instructions to patient) Wes Gates MD Recording using Truist software for draft documentation of the visit was discussed with the patient/authorized nutrition representative; all questions welcomed and answered. Patient/authorized nutrition representative agreed to proceed documented in this encounter [facility] 12-22-2024 Instructions Wes Gates MD - 12/22/2024 4:17 PM EDT - Stop taking glimepiride as discussed. - Continue your other medications (Jardiance, Cymbalta, and Trulicity 3 mg weekly) exactly as prescribed. - Check your blood sugar twice daily and any time you feel lightheaded, dizzy, or have chest discomfort. - Wash your hands and get a good drop of blood for each reading. - Send your blood sugar results via Sgnamhart in about two weeks. - Schedule morning blood work in about two weeks to include PSA, LH, FSH, and testosterone. - Complete a pharmacologic nuclear stress test (not treadmill-based); our office will arrange this for you. - Follow up in approximately eight weeks to review your progress and test results. - If you develop severe chest pain, worsening lightheadedness, or other concerning symptoms, seek medical care promptly. documented in this encounter [facility] 11-17-2024 Note HNO ID: [id number] Author: DEVAUGHN CHEN PT Service: ? Author [...] Goals for Episode of Care: established 08/31/24 [place] in home exercise program. Met Patient will [...] Patient to be seen for Therapeutic exercise (59149), Manual therapy (87319), Neuromuscular re-education (56467), Therapeutic activities (30864), Self-long-term management (67435), Patient/Family/Caregiver Education, Body Mechanics Training PLAN FOR [...] Stop Time : 1402 Devaughn Chen PT [facility] 11-17-2024 History of Presen t illness Narrative Episode Visit Count: 6 Therapist That Will Accept/Oversee The Plan Of Care: Devaughn Chen Start of Care Date: 08/31/24 Onset Date: 07/03/24 Plan of Care Certification Date: 11/17/24 Next Certification Due Date: 01/17/25 [facility]AB[facility] SPORTS THERAPY PHYSICAL THERAPY PROGRESS REPORT PLAN OF CARE UPDATE: Assessment: Sivan Beatrice Tamayo demonstrates significant improvement in rising from [...] Goals for Episode of Care: established 08/31/24 [place] in home exercise program. Met Patient will [...] Patient to be seen for Therapeutic exercise (89869), Manual therapy (14513), Neuromuscular re-education (77009), Therapeutic activities (75883), Self-long-term management (20697), Patient/Family/Caregiver Education, Body Mechanics Training PLAN FOR [...] Devaughn Chen PT documented in this encounter [facility] [facility] Instructions Preethi Causey APRN.WHEAT SHIPPER - 11/03/2024 11:41 AM EDT We discussed [...] Schedule a follow-up with Dr. Toscano, the copy and print associate, in 1 year. Please let us know if you experience any new or worsening symptoms or have any questions before your next visit. Allulose as a sweetener Stop the atorvastatin for now Have fasting blood work including NMR lipid profile in January Follow up 6 months with Preethi Follow up [address] Dorcas Causey APRN.WHEAT SHIPPER documented in this encounter [facility] 11-03-2024 Note HNO ID: [id number] Author: PREETHI CAUSEY APRN.CNP Service: ? Author Type: Nurse Practitioner Type: Progress Notes Filed: 11/03/2024 13:50 Note Text: [facility] [place] [facility] Department of Cardiovascular Medicine SECTION OF CLINICAL CARDIOLOGY OUTPATIENT VISIT DATE November 03, 2024 OUTPATIENT VISIT TYPE ESTABLISHED PRIMARY CARE PHYSICIAN: Wes Gates [address] [place] [address] REFERRING PHYSICIAN: No referring provider defined for [...] with protein and creamer. He is a rpig-vo-obyd grandparent, caring for his grandchildren, ages 10, [...] deficit disorder) 08/28/2011 Coronary artery disease involving twin hills coronary artery of twin hills heart with unstable angina pectoris (HCC) Diabetes (HCC) Hypertension 08/28/2011 Mixed hyperlipidemia Obesity S/P angioplasty with stent PAST SURGICAL HISTORY Procedure Laterality Date ARTHROSCOPY KNEE DIAGNOSTIC W/WO SYNOVIAL BX SPX Left 06/07/2014 meniscus OSTECTOMY CALCANEUS SPUR W/WO PLNTAR FASCIAL RLS Left PCI/STENT 04/27/2023 [facility] 04/27/23 PCI x3 (diagonal, pda and [...] mass Respiratory: Clear (more content not included)... [facility] 11-03-2024 History of Presen t illness Narrative Images from the original note were not included. [facility] [place] [facility] Department of Cardiovascular Medicine SECTION OF CLINICAL CARDIOLOGY OUTPATIENT VISIT DATE November 03, 2024 OUTPATIENT VISIT TYPE ESTABLISHED PRIMARY CARE PHYSICIAN: Wes Gates [address] [place] [address] REFERRING PHYSICIAN: No referring provider defined for [...] found intolerable. He uses a product called BoMyCityWaytick to help clear his nasal passages before sleep. He drinks coffee in the morning, which his prepares with protein and creamer. 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 [...] Schedule a follow-up with Dr. Toscano, the copy and print associate, in 1 year. Please let us know [...] Cardiology Nurse Practitioner Section of [facility] Card[facility] Dept of Cardiovascular Medicine [facility] [place] [address] [place] [address] Office Office This note was partially generated using [employer] voice recognition system and may contain errors related to that system including grammar, punctuation, spelling, and words that may be inappropriate documented in this encounter [facility] 10-24-2024 Note HNO ID: [id number] Author: DEVAUGHN CHEN PT Service: ? Author [...] by supervising therapist. PLAN FOR NEXT VISIT: NC SUBJECTIVE: Patient notes that needling to QL [...] 1228 Session Stop Time : 1252 Devaughn Chen, PT [facility] 10-06-2024 Telephone encounter Note Please see pt message. Has not been on Adderall for extended period of time. Please advise. Pt last visit 08/14/24. Next visit 12/22/24. If visit is required, is VV acceptable? Ebony Valdes MA [facility] 10-06-2024 Miscellaneous Notes Please see pt message. Has not been on Adderall for extended period of time. Please advise. Pt last visit 08/14/24. Next visit 12/22/24. If visit is required, is VV acceptable? Ebony Valdes MA documented in this encounter [facility] 10-06-2024 Note HNO ID: [id number] Author: DEVAUGHN CHEN PT Service: ? Author [...] Goals for Episode of Care: established 08/31/24 [place] in home exercise program. Met Patient will [...] Patient to be seen for Therapeutic exercise (68990), Neuromuscular re-education (76485), Manual therapy (14615), Therapeutic activities (23042), Self-long-term management (89512), Patient/Family/Caregiver Education, Body Mechanics Training PLAN FOR [...] QL with pis (more content not included)... [facility] 10-06-2024 History of Presen t illness Narrative [...] Goals for Episode of Care: established 08/31/24 [place] in home exercise program. Met Patient will [...] Patient to be seen for Therapeutic exercise (90171), Neuromuscular re-education (07738), Manual therapy (56128), Therapeutic activities (61613), Self-long-term management (04123), Patient/Family/Caregiver Education, Body Mechanics Training PLAN FOR [...] Devaughn Chen PT documented in this encounter [facility] 10-03-2024 Progress note Formatting of t his note might be different from the original. Program_ID:[id number] Access Code: [email or web address] URL: [email or web address] Date: 10-03-2024 Prepared By: Devaughn Chen Program [...] weekly - 3 sets - 10 reps [facility] 10-03-2024 Miscellaneous Notes Program_ID:[id number] Access Code: [email or web address] URL: [email or web address] Date: 10-03-2024 Prepared By: Devaughn Chen Program [...] - 10 reps documented in this encounter [facility] 09-21-2024 Note HNO ID: [id number] Author: DEVAUGHN CHEN PT Service: ? Author [...] toward set goals. PLAN FOR NEXT VISIT: NC SUBJECTIVE: Patient notes some subtle improvements again. [...] facilitated with verbal, visual, and tactile cuing. Self-Chcf Management: 1: Reviewed imaging again and related [...] Stop Time : 1220 Devaughn Chen PT [facility] 09-21-2024 History of Presen t illness Narrative [...] toward set goals. PLAN FOR NEXT VISIT: NC SUBJECTIVE: Patient notes some subtle improvements again. [...] facilitated with verbal, visual, and tactile cuing. Self-Chcf Management: 1: Reviewed imaging again and related [...] Stop Time : 1220 Devaughn Chen PT Program_ID:[id number] Access Code: [email or web address] URL: [email or web address] Date: 09-19-2024 Prepared By: Devaughn Chen Program [...] - 10 reps documented in this encounter [facility] 09-13-2024 Telephone encounter Note Prescription Refill Information [...] Gan LPN September 13, 2024 11:10 AM [facility] 09-13-2024 Miscellaneous Notes Prescription Refill Information The [...] 2024 11:10 AM documented in this encounter [facility] 09-13-2024 Telephone encounter Note Patient has been identified by name and date of : Yes Pharmacy electronically sent a request for the following prescription(s) If there are any questions regarding this prescription request, call at home at: [phone] (home) [phone] (cell) RX INSTRUCTIONS: Patient aware RX will be sent to pharmacy. No need to notify patient. Date of last office visit: 02/17/2024 Date of last [facility] visit: Visit date not found Date [...] 07/29/2023 238 07/05/2021 467 Jessica Anderson MA [facility] 09-13-2024 Miscellaneous Notes Patient has been identified by name and date of : Yes Pharmacy electronically sent a request for the following prescription(s) If there are any questions regarding this prescription request, call at home at: [phone] (home) [phone] (cell) RX INSTRUCTIONS: Patient aware RX will be sent to pharmacy. No need to notify patient. Date of last office visit: 02/17/2024 Date of last [facility] visit: Visit date not found Date [...] Jessica Anderson MA documented in this encounter [facility] 09-06-2024 Note HNO ID: [id number] Author: DEVAUGHN CHEN, PT Service: ? Author Type: Physical Therapist Type: Progress Notes Filed: 09/06/2024 14:41 Note Text: Episode Visit Count: 2 Therapist That Will Accept/Oversee The Plan Of Care: Devaughn Chen Start of Care Date: 08/31/24 Onset Date: 07/03/24 Plan of Care Certification Date: 08/31/24 Next Certification Due Date: 10/31/24 REHABILITATION AND SPORTS THERAPY PHYSICAL THERAPY TREATMENT NOTE ASSESSMENT: Sivan Barron Tamayo tolerated the session with decreased symptoms. [...] Stop Time : 1628 Devaughn Chen PT [facility] 09-06-2024 History of Presen t illness Narrative Episode Visit Count: 2 Therapist That Will Accept/Oversee The Plan Of Care: Devaughn Chen Start of Care Date: 08/31/24 Onset Date: 07/03/24 Plan of Care Certification Date: 08/31/24 Next Certification Due Date: 10/31/24 REHABILITATION AND SPORTS THERAPY PHYSICAL THERAPY TREATMENT NOTE ASSESSMENT: Sivan Barron Tamayo tolerated the session with decreased symptoms. [...] Devaughn Chen PT documented in this encounter [facility] 08-31-2024 Note HNO ID: [id number] Author: DEVAUGHN CHEN PT Service: ? Author [...] Goals for Episode of Care: established 08/31/24 [place] in home exercise program. Patient will decrease [...] Planned: 4 Planned Treatment Interventions: Therapeutic exercise (64161), Neuromuscular re-education (30348), Manual therapy (98942), Therapeutic activities (57452), Self-long-term management (69176), Patient/Family/Caregiver Education, Body Mechanics Training PLAN FOR [...] Shoulder Special Tests: Empty Can, Solis-Williams, Neer, Burleson Empty Can: Right Negative Solis-Williams: Right Positive Neer: Right Positive Burleson: Right Negative Special Tests - Hip and Spine Hip and Spine Special Tests: SLR Test, FADDIR Test, Scour Test SLR Test: Right Negative, Left Negative FADDIR Test: Right Positive, Left Positive Scour Test: Right Positive, Left Positive Education: (more content not included)... [facility] 08-31-2024 History of Presen t illness Narrative [...] Goals for Episode of Care: established 08/31/24 [place] in home exercise program. Patient will decrease [...] Planned: 4 Planned Treatment Interventions: Therapeutic exercise (26728), Neuromuscular re-education (77746), Manual therapy (86134), Therapeutic activities (57722), Self-long-term management (59272), Patient/Family/Caregiver Education, Body Mechanics Training PLAN FOR NEXT VISIT: Assess carry over of HEP, manual to R scaular DR's Patient demonstrates good understanding of plan [...] Shoulder Special Tests: Empty Can, Solis-Williams, Neer, Burleson Empty Can: Right Negative Solis-Williams: Right Positive Neer: Right Positive Burleson: Right Negative Special Tests - Hip and [...] States/Identifies TREATMENT: PT Treatment Interventions: Therapeutic Exercise, Self-Chcf Management Evaluation Therapeutic Exercise: 1: *Prone quad [...] facilitated with verbal, visual, and tactile cuing. Self-Chcf Management: 1: Reviewed imaging of both shoulder [...] Stop Time : 1230 Devaughn Chen PT Program_ID:[id number] Access Code: [email or web address] URL: [email or web address] Date: 08-31-2024 Prepared By: Devaughn Chen Program [...] - 10 reps documented in this encounter [facility] 08-28-2024 Telephone encounter Note sent [facility] 08-28-2024 Miscellaneous Notes sent Spouse calls to [...] Smitha Minor RN documented in this encounter [facility] 08-28-2024 Telephone encounter Note Spouse calls to ask about Trulicity. She reports Dr. Gates wanted her to send a [facility] message to remind him to send a new prescription to increase dose. Patient received [facility] message back saying refill wasn't due as it requested the 1.5 mg current dose. Pended Trulicity 3 mg /0.5 ml dose for review. Smitha Minor RN [facility] 08-28-2024 Telephone encounter Note Prescription Refill Information [...] Thomas MA August 28, 2024 10:15 AM [facility] 08-28-2024 Miscellaneous Notes Prescription Refill Information The [...] 2024 10:15 AM documented in this encounter [facility] 08-14-2024 History of Presen t illness Narrative [...] PATIENT PRESENTS WITH AN IMPLANTABLE OR ATTACHED DATA INPUT CLERK: No RADIOLOGY DEPARTMENT: General X-ray: Exam(s) Completed: Pelvis X-Ray: Pelvis with Hip Bilateral Upper Extremity X-Ray(s): Shoulder, AP / TRUE AP / AXILLARY right PERIPHERAL IV DATA: Not applicable SIGNED BY: RT Nadya(R) August 14, 2024 4:29 PM documented in this encounter [facility] 08-14-2024 Note HNO ID: [id number] Author: LUCRETIA CHAVIS RT(R) Service: Radiology Author Type: Technologist Type: Progress [...] PATIENT PRESENTS WITH AN IMPLANTABLE OR ATTACHED DATA INPUT CLERK: No RADIOLOGY DEPARTMENT: General X-ray: Exam(s) Completed: Pelvis X-Ray: Pelvis with Hip Bilateral Upper Extremity X-Ray(s): Shoulder, AP / TRUE AP / AXILLARY right PERIPHERAL IV DATA: Not applicable SIGNED BY: RT Nadya(Tiny) August 14, 2024 4:29 PM [facility] 08-14-2024 Note Addended by: Sahil GATES on: 08/14/2024 04:23 PM Modules accepted: Orders [facility] 08-14-2024 Miscellaneous Notes Addended by: WES GATES on: 08/14/2024 04:23 PM Modules accepted: Orders documented in this encounter [facility] 08-14-2024 Note HNO ID: [id number] Author: WES GATES MD Service: ? Author [...] deficit disorder) 08/28/2011 Coronary artery disease involving twin hills coronary artery of twin hills heart with unstable angina pectoris (HCC) Diabetes (HCC) Hypertension 08/28/2011 Mixed hyperlipidemia Obesity S/P angioplasty with stent PAST SURGICAL HISTORY Procedure Laterality Date ARTHROSCOPY KNEE DIAGNOSTIC W/WO SYNOVIAL BX SPX Left 06/07/2014 meniscus OSTECTOMY CALCANEUS SPUR W/WO PLNTAR FASCIAL RLS Left PCI/STENT 04/27/2023 [facility] 04/27/23 PCI x3 (diagonal, pda and [...] shoulder. - CONSULT (more content not included)... [facility] 08-14-2024 History of Presen t illness Narrative [...] deficit disorder) 08/28/2011 Coronary artery disease involving twin hills coronary artery of twin hills heart with unstable angina pectoris (HCC) Diabetes [...] Wes Gates MD documented in this encounter [facility] 07-26-2024 Telephone encounter Note Patient has been identified by name and date of : Yes Pharmacy electronically sent a request for the following prescription(s) If there are any questions regarding this prescription request, call on cell at: [phone] (home) [phone] (cell) RX INSTRUCTIONS: Pharmacy initiated this request. No need to notify patient. Date of last office visit: 05/11/23 Date of last [facility] visit: Visit date not found Date [...] 134 07/29/2023 238 07/05/2021 467 THALIA Hoover [facility] 07-26-2024 Miscellaneous Notes Patient has been identified by name and date of : Yes Pharmacy electronically sent a request for the following prescription(s) If there are any questions regarding this prescription request, call on cell at: [phone] (home) [phone] (cell) RX INSTRUCTIONS: Pharmacy initiated this request. No need to notify patient. Date of last office visit: 05/11/23 Date of last [facility] visit: Visit date not found Date [...] 467 THALIA Hoover documented in this encounter [facility] 07-19-2024 Telephone encounter Note Patient is requesting a 90 day supply [facility] 07-19-2024 Miscellaneous Notes Patient is requesting a 90 day supply Pharmacy verified in [facility] Patient has been identified by name and [...] advise. Celestina Bridges documented in this encounter [facility] 07-19-2024 Telephone encounter Note Pharmacy verified in [facility] Patient has been identified by name and [...] (272 lb 4.3 oz) Not applicable Please adviseRadha Bridges [facility] 07-06-2024 Note HNO ID: [id number] Author: JACOB MAYS OD Service: ? Author Type: REGULATOR TESTER Type: Progress Notes Filed: 07/06/2024 09:55 Note Text: 1. Type 2 diabetes mellitus without retinopathy (HCC) Risk of diabetic changes and vision loss can be minimized by tight control of blood sugar, blood pressure, and cholesterol levels. Educated patient to continue care with primary care doctor and/or channel manager to maintain optimum levels as they are [...] Mays, OD July 06, 2024 9:53 AM [facility] 07-06-2024 History of Presen t illness Narrative 1. Type 2 diabetes mellitus without retinopathy (HCC) Risk of diabetic changes and vision loss can be minimized by tight control of blood sugar, blood pressure, and cholesterol levels. Educated patient to continue care with primary care doctor and/or channel manager to maintain optimum levels as they are [...] 2024 9:53 AM documented in this encounter [facility] 06-23-2024 History of Presen t illness Narrative [...] medication may not be the best for mcfp use. HLD: No myalgias. Follows with Cardiology. [...] Abs Lymph 1.00 - 4.00 k/uL 1.49 Iosco% % 9.3 Abs Iosco <0.87 k/uL 0.43 Eosin% % 3.5 Abs [...] deficit disorder) 08/28/2011 Coronary artery disease involving twin hills coronary artery of twin hills heart with unstable angina pectoris (HCC) Diabetes [...] 3oth Influenza Vaccine(1) Never done Covid-19 Vaccine( season) Never done Diabetic Foot Exam due [...] monofilament ASSESSMENT/PLAN: 1. Coronary artery disease involving twin hills coronary artery of twin hills heart with unstable angina pectoris (HCC) - [...] Wes Gates MD documented in this encounter [facility] 06-23-2024 Note HNO ID: [id number] Author: WES GATES MD Service: ? Author [...] 07/06/24. No unexpected weight loss. Since starting Trlos has gained weight. Makes him feel hungry. [...] medication may not be the best for terminal make up operator use. HLD: No myalgias. Follows with Cardiology. [...] Abs Lymph 1.00 - 4.00 k/uL 1.49 [place]osco% % 9.3 Abs Iosco <0.87 k/uL 0.43 Eosin% % 3.5 Abs [...] deficit disorder) 08/28/2011 Coronary artery disease involving twin hills coronary artery of twin [place] heart with unstable angina pectoris (HCC) Diabetes [...] reviewed and n (more content not included)... [facility] 06-16-2024 Miscellaneous Notes Please see pt message. Pt had last labs completed 07/29/23. A1c at that time was 8.0. Scheduled for a 6 mo f/u on 06/23/24. Pended orders. Please review and file and update pt via rimidi to complete fasting prior to his appt and keep appt as scheduled. Ebony Valdes MA documented in this encounter [facility] 06-16-2024 Telephone encounter Note Please see pt message. Pt had last labs completed 07/29/23. A1c at that time was 8.0. Scheduled for a 6 mo f/u on 06/23/24. Pended orders. Please review and file and update pt via rimidi to complete fasting prior to his appt and keep appt as scheduled. Ebony Valdes MA [facility] 02-17-2024 Note HNO ID: [id number] Author: JOVANNA DUNLAP DO Service: ? Author Type: Physician Type: Progress Notes Filed: 02/17/2024 10:36 Note Text: [facility] [place] [facility] Department of Cardiovascular Medicine SECTION OF [facility] CARDIOLOGY/[facility] OUTPATIENT VISIT DATE February 17, 2024 OUTPATIENT VISIT TYPE ESTABLISHED PATIENT Name: Sivan Tamayo : 1970 Date: February 17, 2024 PRIMARY CARE PHYSICIAN: Wes Gates [address] [place] [address] REFERRING PHYSICIAN: Haile Pollock [id number] [address] [facility] [id number] CHIEF COMPLAINT: Patient presents with: Cardiology Follow [...] stenting in April 2023 after presenting to [facility] with chest pain and subsequent findings with diagnostic cardiac catheterization and underwent stent placement at [facility]. He presents today for follow-up with his [...] disorder) No date: Coronary artery disease involving twin hills coronary artery of twin hills heart with unstable angina pectoris (HCC) No date: Diabetes (HCC) 08/28/2011: Hypertension No date: Mixed hyperlipidemia No date: Obesity No date: S/P angioplasty with stent PAST SURGICAL HISTORY 06/07/2014: ARTHROSCOPY KNEE DIAGNOSTIC W/WO SYNOVIAL BX SPX; Left Comment: meniscus No date: OSTECTOMY CALCANEUS SPUR W/WO PLNTAR FASCIAL RLS; Left 04/27/2023: PCI/STENT Comment: [facility] 04/27/23 PCI x3 (diagonal, pda and [...] isosorbide mononitrate ER (more content not included)... [facility] 02-17-2024 History of Presen t illness Narrative Images from the original note were not included. [facility] [place] [facility] Department of Cardiovascular Medicine SECTION OF [facility] OUTPATIENT VISIT DATE February 17, 2024 OUTPATIENT VISIT TYPE ESTABLISHED PATIENT Name: Sivan Tamayo : 1970 Date: February 17, 2024 PRIMARY CARE PHYSICIAN: Wes Gates [address] [place] [address] REFERRING PHYSICIAN: Haile Pollock [id number] [address] [facility] [address] CHIEF COMPLAINT: Patient presents with: Cardiology Follow [...] stenting in April 2023 after presenting to [facility] with chest pain and subsequent findings with diagnostic cardiac catheterization and underwent stent placement at [facility]. He presents today for follow-up with his [...] disorder) No date: Coronary artery disease involving [place] coronary artery of [place] heart with unstable angina pectoris ([facility]) No date: Diabetes ([facility]) 08/28/2011: Hypertension No date: Mixed hyperlipidemia No date: Obesity No date: S/P angioplasty with stent PAST SURGICAL HISTORY 06/07/2014: ARTHROSCOPY KNEE DIAGNOSTIC W/WO SYNOVIAL BX SPX; Left Comment: meniscus No date: OSTECTOMY CALCANEUS SPUR W/WO PLNTAR FASCIAL RLS; Left 04/27/2023: PCI/STENT Comment: [facility] 04/27/23 PCI x3 (diagonal, pda and [...] reviewed No Cardiovascular testing perfomed today. Jovanna uDnlap DO, [facility] Staff [employer] Jovanna and Sophie Villa Dept. of Cardiovascular Medicine Heart, Vascular and [facility] [place], [facility] This document was generated using the assistance of voice recognition software. If there are any errors of spelling, grammar, syntax or meaning, please feel free to contact me directly at anytime. documented in this encounter [facility] 01-21-2024 Telephone encounter Note Spoke with pt. [...] at goal. NOV: 02/17/[address] Dunlap [facility] 01-21-2024 Miscellaneous Notes Spoke with pt. Symptoms [...] sooner appointment, nothing available on provider and WHEAT SHIPPER schedules. PT placed on wait list. PT has been experiencing symptoms of what he felt before his surgery last year for heart blockages. PT is concerned he may have some blockages now. PT has been more winded, increased sweating, some dizziness. PT does not check BP at home. PT is requesting a return call to advise of symptoms at [phone] documented in this encounter [facility] 01-21-2024 Telephone encounter Note PT calling today for a sooner appointment, nothing available on provider and WHEAT SHIPPER schedules. PT placed on wait list. PT has been experiencing symptoms of what he felt before his surgery last year for heart blockages. PT is concerned he may have some blockages now. PT has been more winded, increased sweating, some dizziness. PT does not check BP at home. PT is requesting a return call to advise of symptoms at [phone] [facility] 09-08-2023 Miscellaneous Notes Patient has been identified [...] Last refill: 12/2022 documented in this encounter [facility] 08-12-2023 History of Presen t illness Narrative [facility] [place] [facility] Torres Department of Cardiovascular Medicine SECTION OF REGIONAL CARDIOLOGY/[facility] OUTPATIENT VISIT DATE August 12, 2023 OUTPATIENT VISIT TYPE ESTABLISHED PATIENT Name: Sivan Tamayo : 1970 Date: August 12, 2023 PRIMARY CARE PHYSICIAN: Wes Gates [address] [place] [address] REFERRING PHYSICIAN: Haile Pollock [id number] [address] [facility] [id number] CHIEF COMPLAINT: Patient presents with: CARD Follow Up 3 Month: [facility] 04/27/23 PCI x3 (diagonal, pda and [...] stenting in April 2023 after presenting to [facility] with chest pain and subsequent findings with diagnostic cardiac catheterization and underwent stent placement at [facility]. 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 Jovanna Dunlap DO, [facility] Staff Sizer Machine Jovanna and Sophie Villa Dept. of Cardiovascular Medicine Heart, Vascular and [facility] [place], [facility] This document was generated using the assistance of voice recognition software. If there are any errors of spelling, grammar, syntax or meaning, please feel free to contact me directly at anytime. documented in this encounter [facility] 07-30-2023 Miscellaneous Notes Pt returned call and [...] in two weeks. documented in this encounter [facility] 07-29-2023 Miscellaneous Notes Sees cardio 08/12/23 no upcoming visit with PCP scheduled. documented in this encounter [facility] 05-17-2023 Miscellaneous Notes Prior auth started on Ozempic 2mg/3ml through cover my meds. Jessica Bradley Ma documented in this encounter [facility] 05-12-2023 History of Presen t illness Narrative TRANSITION CARE MANAGEMENT (TCM) FOLLOW-UP NOTE Provider Action/FYI PCP TCM follow up: completed 05/10/2023 Encounter reviewed No need for TCM outreach Will continue with TCM monitoring for 30 days Summary: Pt discharged from [facility] on 04/29/2023. Admitted for: unstable angina Director Search Marketing Strategies plan for next outreach: Will follow up LOW Education Ordered -: No Signature Kenzie Henriquez RN May 12, 2023 documented in this encounter [facility] 05-11-2023 History of Presen t illness Narrative Images from the original note were not included. [facility] [place] [facility] Department of Cardiovascular Medicine [facility] OUTPATIENT VISIT DATE May 11, 2023 OUTPATIENT VISIT TYPE Established Patient PRIMARY CARE PHYSICIAN: Wes Gates [address] [place] [address] REFERRING PHYSICIAN: SELF CHIEF COMPLAINT: Office Follow-Up Visit HISTORY OF PRESENT ILLNESS: Mr. Tamayo is a 53 year old male who presents today for follow up doing well no angina. He denies chest pain, shortness of breath, orthopnea, cough, edema, palpitations, PND, lightheadedness or syncope. PROBLEM LIST: Specialty Problems Cardiology Problems Essential hypertension Coronary artery disease involving twin hills coronary artery of twin hills heart with unstable angina pectoris (HCC) Mixed [...] stable . (I25.110) Coronary artery disease involving twin hills coronary artery of twin hills heart with unstable angina pectoris (HCC) (primary encounter diagnosis) (I10) Essential hypertension (E66.9) Obesity, Class I, BMI 30-34.9 (Z95.820) S/P angioplasty with stent (E11.9) Type 2 diabetes mellitus without complication, without long-term current use of insulin (HCC) Had stent to diagonal, pda and plv1. Doing well Patient of Dr Dunlap in [place]. He will follow up with him I have reviewed the medications, adjusted it and renew it for another year. During this visit PLAN AND RECOMMENDATIONS: Lipid is managed and blood testing is done by pcp Continue present treatment CONTACT INFORMATION: MD Jovanna Adams and Sophie Torres Department of Cardiovascular Medicine Heart [facility] [place] [facility] Cardiology [address] [place] [address] documented in this encounter [facility] 05-10-2023 History of Presen t illness Narrative [...] Provider: Krish Urias MD Primary Service: , [facility] REASON FOR HOSPITALIZATION: chest pain, intermittent, with CAD on LHC at [facility] DIAGNOSIS: Principal Problem: 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 who presented to [facility] for CP. Troponins were negative. EKG [...] of placing stents. Pt. Was admitted to [facility], had a LHC on 04/28/[address] [...] Negative. ASSESSMENT/PLAN: 1. Coronary artery disease involving twin hills coronary artery of twin hills heart with unstable angina pectoris (HCC) - [...] Wes Gates MD documented in this encounter [facility] 04-30-2023 History of Presen t illness Narrative TCM Home Visit Referral Source of Stratification: [facility] Hospital Admission Status: Discharged Readmission [...] Network Status: In-Network Discharge Pt discharged from [facility] on 04/29/2023. Admitted for: unstable angina Contact made with patient: Yes Hi my name is Kenize Henriquez RN and I am calling from the [facility] on behalf of your PCP, Wes Gates [...] completed? Yes Medication Review Sivan Tamayo (MR# [id number]) Review Info User Date and Time KENZIE DUGAN, KAN [[id number]] 04/30/2023 12:23 PM Reviewed Medications As of [...] like to speak with a social work produce service team member to help give you support for any [...] I will send your request to a mobile security architect who will contact and assist you with [...] way if possible). LOW Education Ordered -: Dasha Henriquez RN April 30, 2023 12:18 PM documented in this encounter [facility] 04-29-2023 Miscellaneous Notes Please arrange for follow up with Dr. Pollock in 1-2 weeks, he is s/p heart cath w/ stents. Thank you! documented in this encounter [facility] 04-28-2023 Note HNO ID: [id number] Author: Krish Urias MD Service: Hospital Medicine Author Type: Physician Type: Progress Notes Filed: 04/28/2023 8:28 PM Note Text: DEPARTMENT OF HOSPITAL MEDICINE PROGRESS NOTE SERVICE DATE: 04/28/2023 SERVICE TIME: 4:00 PM Hospital Medicine/Primary Attending: Krish Urias MD NIGHT AND WEEKEND COVERAGE: [facility] COVERAGE:TEAM 4: Days AND Nights please call Team 4 pager [phone] Subjective INTERVAL HPI: Pt. Feels good , [...] Drains, and Airways Line Duration Peripheral 04/28/23 [facility] Short Left Forearm 22 Gauge <1 day DATA: Diagnostic tests reviewed for today's visit: Most recent labs and imaging results. Assessment/Plan Principal Problem: # Coronary artery disease, twin hills heart, twin hills arteries, with unstable angina - CC: CP - Left heart cath at [facility] showing significant coronary artery stenosis- - S/p [...] was given a dose of amlodipine at [facility] but had what they presumed was an [...] Dose Route Frequency Last Action Ordered Stop 04/29/23 09 clopidogrel 75 mg tab(s) (PLAVIX) 75 mg ORAL DAILY Ordered 04/28/23 1528 -- 04/28/23 0900 aspirin 81 mg chewable tab(s) 81 mg ORAL DAILY Given, 04/28 92204/27/232000 -- 04/27/232014 activity - mobilize patient (tn,sc) VTE Prophylaxis: VTE prophylaxis appropriate Disposition: Home Plan of care discussed with: Patient, Family/Significant Other: at bedside , and RN and copy and print associate dr. Pollock SIGNATURE: Krish Urias MD PATIENT NAME: Sivan Tamayo DATE: April 28, 2023 TIME: 4:00 PM etx [id number] [facility] 04-27-2023 Miscellaneous Notes Hospital transfer from [facility] to [facility]. Sivan Oconnor 53 yo male with hx of DM, HTN, dyslipidemia, obesity, tobacco abuse, with exertional chest pain. Abnormal stress and positive cath with needing revascularization of circumflex marginal branch and RCA. Accepted to [facility]. Rory Lee MD April 27, 2023 5:14 PM documented in this encounter [facility] 04-23-2023 History of Past i llness Narrative Problem Noted Date Diagnosed Date Resolved Date Exertional chest pain 04/23/20232022 documented as of this encounter (statuses as of 05/10/2023) [facility] History of Past illness Narrative* Problem Noted Date Diagnosed Date Resolved Date Exertional chest pain 04/23/20232022 documented as of this encounter (statuses as of 05/11/2023) [facility] History of Past illness Narrative* Problem Noted Date Diagnosed Date Resolved Date Exertional chest pain 04/23/20232022 documented as of this encounter (statuses as of 05/12/2023) [facility] History of Past illness Narrative* Problem Noted Date Diagnosed Date Resolved Date Exertional chest pain 04/23/20232022 documented as of this encounter (statuses as of 05/17/2023) [facility] History of Past illness Narrative* Problem Noted Date Diagnosed Date Resolved Date Exertional chest pain 04/23/20232022 documented as of this encounter (statuses as of 07/29/2023) [facility] History of Past illness Narrative* Problem Noted Date Diagnosed Date Resolved Date Exertional chest pain 04/23/20232022 documented as of this encounter (statuses as of 07/30/2023) [facility] History of Past illness Narrative* Problem Noted Date Diagnosed Date Resolved Date Exertional chest pain 04/23/20232022 documented as of this encounter (statuses as of 08/12/2023) [facility] History of Past illness Narrative* Problem Noted Date Diagnosed Date Resolved Date Exertional chest pain 04/23/20232022 documented as of this encounter (statuses as of 09/08/2023) [facility]11[facility] History of Present illness Narrative* Wes Gates [...] will follow. Wes Gates documented in this encounterAd[facility]23 NoteHNO ID: [id number] Author: Delma Cabrales RN Service: Nursing Author Type: Registered Nurse Type: Nursing Progress Note Filed: 03/02/2023 2:45 PM Note Text: Other: Patient states he is doing well after his procedure. No complaints verbalized.[facility]09-20-2023 Nurse Note* Candido Ann, KAN - 02/24/2023 12:56 PM EDTSummary: Pre-op Instruction Pt given arrival time. Pt's stated that they were unable to find the bowel prep. States that prep was started around noon. Pt instructed to continue clear liquid and finish prep prior to midnight. Pt's verbalizes understanding. documented in this encounter[facility] Miscellaneous Notes* Telephone Encounter - Wes Gates MD - 01/21/2023 4:58 PM EDT Thank you! * Telephone Encounter - Acosta Rivrea MSW - 01/21/2023 4:17 PM EDT Sw [...] forms in the mail. documented in this encounterAd[facility] History of Present illness Narrative* Wes Gates [...] Then keep next appt. documented in this encounterAd[facility]07-[facility]23 Miscellaneous Notes* Telephone Encounter - Jourdan Armendariz [...] Rto in eight weeks documented in this encounterAd[facility]07-[facility]-2023 Miscellaneous Notes* Addendum Note - Wes Gates MD - 12/21/2022 4:45 PM EDTAddended by: WES GATES on: 12/21/2022 04:45 PM Modules accepted: Orders * Addendum Note - Wes Gates MD - 12/21/2022 4:02 PM EDTAddended by: WES GATES on: 12/21/2022 04:02 PM Modules accepted: Orders documented in this encounterAd[facility]07-[facility]-2023 History of Present illness Narrative* Wes Gates [...] meds. Wes Gates MD documented in this encounterAd[facility]03-28-2023 Miscellaneous Notes* Telephone Encounter - Wes Gates MD - 09/01/2022 4:23 PM EDT Not tolerating his metformin. Not taking it. Will try actos. documented in this encounterAd[facility]03-28-2023 History of Present illness Narrative* Jacob Mays, OD - 09/01/2022 2:42 PM EDT 1. Type 2 diabetes mellitus without retinopathy (HCC) Risk of diabetic changes and vision loss can be minimized by tight control of blood sugar, blood pressure, and cholesterol levels. Educated patient to continue care with primary care doctor and/or channel manager to maintain optimum levels as they are [...] 01, 2022 2:43 PM documented in this encounterAd[facility]01-10-2023 Instructions* Patient Instructions* Rani Perales APRN.GRACE - 06/16/2022 10:20 AM EST Get labs. Schedule with gen surg for colonoscopy. Schedule with eye doctor. Start the amlodipine daily. Recheck in a month. documented in this encounterAd[facility]01-10-2023 History of Present illness Narrative* Rani Perales [...] as needed for worsening/no improvement. Rani Perales APRN.WHEAT SHIPPER documented in this encounterAd[facility]01-03-2023 Miscellaneous Notes* Telephone Encounter - Wes Gates MD - 06/09/2022 1:29 PM EST We do not write, will forward to writing physician. * Telephone Encounter - Rubina Mclaughlin MA - 06/09/2022 1:27 PM EST Pharmacy verified in [id number]. Patient has been identified by name and [...] advise. Rubina Mclaughlin MA documented in this [facility]12-07-2022 Miscellaneous Notes* Telephone Encounter - Beatriz Sanchez [...] primary care: 04/21/22 Please advise. Thank you. Beatriz Sanchez LPN documented in this [facility]11-15-2022 Instructions* Patient Instructions* Rani Perales APRN.GRACE - 04/21/2022 9:11 AM EST Start the losartan daily. Change the metformin to XR -- you can do one pill twice daily or two pills by mouth daily w/ breakfast. Get the repeat labwork. Recheck for BP check in 1 month. documented in this [facility]11-15-2022 History of Present illness Narrative* Rani Perales APRN.GRACE - 04/21/2022 8:41 AM EST This is [...] as needed for worsening/no improvement. Rani Perales APRN.WHEAT SHIPPER This note was partially generated using [employer] voice recognition system. Note was reviewed for accuracy. There may be minor misspellings or grammar miscues with [employer] voice recognition. documented in this encounterAd[facility]10-12-2022 Miscellaneous Notes* Telephone Encounter - Steffi Henriquez [...] weeks. Rx sent in documented in this encounterAd[facility]10-10-2022 History of Present illness Narrative* Wes Gates MD - 03/16/2022 6:36 PM EDT Patient presents with: Pain: Left calf pain. Warner pop playing football yesterday. Diabetes HPI: Patient [...] worsens. Wes Gates MD documented in this [facility]10-05-2022 Miscellaneous Notes* Telephone Encounter - Sharon Barnes RN - 03/11/2022 11:17 AM EDT Pt called for DM update. No answer. LM for pt to return call to phone number. Sharon Barnes RN documented in this [facility]08-30-2022 Miscellaneous Notes* Telephone Encounter - Carolina Thomas [...] patient. Carolina Thomas Ma documented in this [facility]07-27-2022 Miscellaneous Notes* Telephone Encounter - Sharon Barnes RN - 12/31/2021 11:32 AM EDT Spoke to pt for DM update. States his blood sugars have been running 160s fasting. Says he will come in tomorrow am for Hgb A1C lab draw. Please place orders. Thank you. Sharon Barnes RN documented in this [facility]05-12-2022 History of Present illness Narrative* Wes aGtes MD - 10/16/2021 10:50 AM EDT Patient [...] Abs Lymph 1.00 - 4.00 k/uL 1.46 Iosco% % 11.1 Abs Iosco <0.87 k/uL 0.41 Eosin% % 3.2 Abs [...] BASIC Wes Gates MD documented in this encounterAd[facility]01-03-2022 Miscellaneous Notes* Telephone Encounter - Jourdan Armendariz [...] Please review and advise. Call pt with 's message. Shaila Vernon LPN documented in [facility]Ad[facility]* Diagnosis Primary hypertension- Primary Unspecified essential hypertension Type 2 diabetes mellitus without complication, without long-term current use of insulin (HCC) Mixed hyperlipidemia documented [facility] this encounter [facility]* Diagnosis Type 2 diabetes mellitus without complication, without long-term current use of insulin (HCC)- Primary [facility] this [facility]* Diagnosis ADHD (attention deficit hyperactivity disorder), inattentive type Attention deficit disorder without mention of hyperactivity documented [facility] this encounter [facility]* Diagnosis ADHD (attention deficit hyperactivity disorder), inattentive type Attention deficit disorder without mention of hyperactivity [facility] Type 2 diabetes mellitus without complication, without long-term current use of insulin (HCC) documented in this encounter [facility]* Diagnosis Primary hypertension- Primary Unspecified essential hypertension Type 2 diabetes mellitus without complication, without long-term current use of insulin (HCC) Muscle cramping Cramp of limb Chronic pain of both knees [facility]* Diagnosis Type 2 diabetes mellitus without complication, without long-term current use of insulin (HCC)- Primary [facility]* Diagnosis Primary hypertension- Primary Unspecified essential hypertension Type 2 diabetes mellitus without complication, without long-term current use of insulin (HCC) Mixed hyperlipidemia documented in this encounter [facility]* Diagnosis Type 2 diabetes mellitus without complication, without long-term current use of insulin (HCC) [facility]* Diagnosis ADHD (attention deficit hyperactivity disorder), inattentive type Attention deficit disorder without mention of hyperactivity [facility] this [facility]* Diagnosis Primary hypertension- Primary Unspecified essential hypertension Type 2 diabetes mellitus without complication, without long-term current use of insulin (HCC) Screening for colon cancer Special screening for malignant neoplasms, colon Type 2 diabetes mellitus with diabetic neuropathy, without long-term current use of insulin (HCC) documented in this encounter [facility]* Diagnosis ADHD (attention deficit hyperactivity disorder), inattentive type Attention deficit disorder without mention of hyperactivity documented in this encounter [facility]* Diagnosis Type 2 diabetes mellitus without retinopathy (HCC)- Primary Type II or unspecified type diabetes mellitus without mention of complication, not stated as uncontrolled 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 film insufficiency, unspecified Regular astigmatism of both eyes Regular astigmatism Presbyopia [facility] Diagnosis Type 2 diabetes mellitus without complication, without long-term current use of insulin (HCC)- Primary documented in this encounter [facility]* Diagnosis ADHD (attention deficit hyperactivity disorder), inattentive type Attention deficit disorder without mention of hyperactivity documented [facility] this encounter [facility]* Diagnosis Primary hypertension- Primary Unspecified essential hypertension Screening for colon cancer Special screening for malignant neoplasms, colon Type 2 diabetes mellitus without complication, without long-term current use of insulin (HCC) Attention deficit disorder, unspecified hyperactivity presence Hyperlipidemia, unspecified hyperlipidemia type Medication monitoring encounter Encounter for therapeutic drug monitoring documented in this encounter [facility]* Diagnosis Type 2 diabetes mellitus without complication, without long-term current use of insulin (HCC) documented in this encounter [facility]* Diagnosis Primary hypertension- Primary Unspecified essential hypertension Type 2 diabetes mellitus without complication, without long-term current use of insulin (HCC) [facility]* Diagnosis Chest pain, unspecified type- Primary Primary hypertension Unspecified essential hypertension Mild intermittent asthma without complication Unspecified asthma Type 2 diabetes mellitus without complication, without long-term current use of insulin (HCC) documented in this encounter [facility]* Diagnosis Coronary artery disease involving twin hills coronary artery of twin [place] heart with unstable angina pectoris (HCC)- Primary Essential hypertension Unspecified essential hypertension Mixed hyperlipidemia Type 2 diabetes mellitus without complication, without long-term current use of insulin (HCC) S/P angioplasty with stent Other postprocedural status documented in this encounter [facility]* Diagnosis Coronary artery disease involving twin hills coronary artery of twin [place] heart with unstable angina pectoris (HCC)- Primary Essential hypertension Unspecified essential hypertension Obesity, Class I, BMI 30-34.9 Obesity, unspecified S/P angioplasty with stent Other postprocedural status Type 2 diabetes mellitus without complication, without long-term current use of insulin (HCC) [facility] Diagnosis Type 2 diabetes mellitus without complication, without long-term current use of insulin (HCC) [facility]* Diagnosis Coronary artery disease involving twin hills coronary artery of twin hills heart with unstable angina pectoris (HCC)- Primary Essential hypertension Unspecified essential hypertension Mixed hyperlipidemia [facility]* Diagnosis Type 2 diabetes mellitus without complication, without long-term current use of insulin (HCC) documented in this [facility] Med[facility] ref[facility]- Primary Issue of repeat prescriptions [facility] Diagnosis Coronary artery disease involving [place] coronary artery of [place] heart with unstable angina pectoris (HCC)- Primary Essential hypertension Unspecified essential hypertension Mixed hyperlipidemia [facility] Diagnosis Type 2 diabetes mellitus without complication, without long-term current use of insulin (HCC) [facility] Diagnosis Type 2 diabetes mellitus without complication, without long-term current use of insulin (HCC)- Primary Coronary artery disease involving [place] coronary artery of [place] heart with unstable angina pectoris (HCC) Mixed hyperlipidemia Essential hypertension Unspecified essential hypertension [facility] Diagnosis Coronary artery disease involving [place] coronary artery of [place] heart with unstable angina pectoris (HCC)- Primary Type 2 diabetes mellitus without complication, without long-term current use of insulin (HCC) Encounter for screening examination for other mental health and behavioral disorders Screening for depression Mixed hyperlipidemia Essential hypertension Unspecified essential hypertension Obesity (BMI 30-39.9) Obesity, unspecified [facility]* Diagnosis Type 2 diabetes mellitus without retinopathy (HCC)- Primary Type II or unspecified type diabetes mellitus without mention of complication, not stated as uncontrolled 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 film insufficiency, unspecified Regular astigmatism of both eyes Regular astigmatism Presbyopia [facility]* Diagnosis Bilateral hip pain- Primary Pain in joint, pelvic region and thigh Type 2 diabetes mellitus without complication, without long-term current use of insulin (HCC) Acute pain of right shoulder [facility]* Diagnosis Bilateral hip pain Pain in joint, pelvic region and thigh Acute pain of right shoulder documented in this encounter [facility] note* Diagnosis Type 2 diabetes mellitus without complication, without long-term current use of insulin (HCC) documented in this encounter [facility] note* Diagnosis Type 2 diabetes mellitus without complication, without long-term current use of insulin (HCC)- Primary documented in this encounter [facility] note* Diagnosis Acute pain of right shoulder- Primary Bilateral hip pain Pain in joint, pelvic region and thigh documented in this encounter [facility] note* Diagnosis Acute pain of right shoulder- Primary Bilateral hip pain Pain in joint, pelvic region and thigh documented in this encounter [facility] note* Diagnosis Type 2 diabetes mellitus without complication, without long-term current use of insulin (HCC) documented in this encounter [facility] note* Diagnosis Medication refill Issue of repeat prescriptions documented in this encounter [facility] note* Diagnosis Mixed hyperlipidemia- Primary Vitamin D deficiency Unspecified vitamin D deficiency Vitamin B12 deficiency Other B-complex deficiencies Hypothyroidism, unspecified type Iron deficiency anemia, unspecified iron deficiency anemia type documented in this encounter [facility] note* Diagnosis Acute pain of right shoulder- Primary Bilateral hip pain Pain in joint, pelvic region and thigh documented in this encounter [facility] note* Diagnosis Fatigue, unspecified type- Primary documented in this encounter [facility] noteNo assessment information availableWTrinity Health System Work Phone: Evaluation note* Diagnosis Coronary artery disease involving [place] coronary artery of [place] heart with unstable angina pectoris (HCC)- Primary Essential hypertension Unspecified essential hypertension Mixed hyperlipidemia Mild intermittent asthma without complication (HCC) Unspecified asthma Type 2 diabetes mellitus without complication, without long-term current use of insulin (HCC) Attention deficit hyperactivity disorder (ADHD), unspecified ADHD type Class 1 obesity with body mass index (BMI) of 34.0 to 34.9 in adult, unspecified obesity type, unspecified whether serious comorbidity present Hypogonadism in male Screening for prostate cancer Special screening for malignant neoplasm of prostate Chest pain, unspecified type Lightheaded Dizziness and giddiness documented in this encounter [facility] note* Diagnosis Chest pain, unspecified type Lightheaded Dizziness and giddiness documented in this encounter [facility] for referral (narrative)* Outpatient Procedure (Routine) - Pending Review Specialty Diagnoses / Procedures Referred By Contac t Referred To Contact [facility] Diagnoses Chest pain, unspecified type Procedures ECG COMPLETE ECG ROUTINE ECG W/LEAST 12 LDS W/I&R Wes Gates MD [address] [place] [address] [facility] [address] [place] [address] Referral ID Status Reason Start Date Expiration Date Visits Requested Visits Authorized [id number] Pending Review Auto-Generat ed Referral 3 04/22/2024 1 1 [facility] for referral (narrative)No reason for referral information availableWTrinity Health System Work Phone: Reason for visit Narrative* Diagnostic Procedure Only (Routine) - Closed Specialty Diagnoses / Procedures Referred By Lashawn t Referred To Contact XR IMAGING Diagnoses Acute pain of right shoulder Procedures XR SHOULDER GENERAL 3V OR MORE AP/TRUE AP/OTHER RIGHT RADEX SHOULDER COMPLETE MINIMUM 2 VIEWS Wes Gates MD [address] [place] [address] Phone: tel: fax: [place] [id number] Referral ID Status Reason Start Date Expiration Date V isits Requested Visits Authorized [id number] Closed Auto-Generate d Referral 08/14/2024 09/13/2025 1 1 [facility] for visit Narrative* Diagnostic Procedure Only (Routine) - Authorized Specialty Diagnoses / Procedures Referred By Lashawn t Referred To Contact [facility]LECULAR [facility]CTIONAL [facility]AGING Diagnoses Chest pain, unspecified type Lightheaded Procedures NM CARDIAC PERF STRESS/PHARM MYOCARDIAL SPECT MULTIPLE STUDIES Wes Gates MD [address] [place] [address] Phone: tel: fax: [facility] [address] [place] [address] Phone: tel: Referral ID Status Reason Start Date Expiration Date Visits Requested Visits Authorized [id number] Authorized Auto-Generat ed Referral Patient Cleared - Admin/Chairm an/Director advise to proceed or did not respond 12/26/2024 01/25/2025 3 3 [facility] for visit Narrative* Diagnostic Procedure Only (Routine) - Authorized Specialty Diagnoses / Procedures Referred By Contac t Referred To Contact [facility] Diagnoses Chest pain, unspecified type Lightheaded Procedures NM CARDIAC PERF STRESS/PHARM MYOCARDIAL SPECT MULTIPLE STUDIES Wes Gates MD [address] [place] [address] Phone: tel: fax: [facility] [address] [place] [id number] Phone: tel: Referral ID Status Reason Start Date Expiration Date Visits Requested Visits Authorized [id number] Authorized Auto-Generat ed Referral Patient Cleared - Admin/Chairm an/Director advise to proceed or did not respond 12/26/2024 01/25/2025 3 3 [facility] Summary Purpose Family History No Family History Records Found Relationship Condition Age at Onset Recorded Date/T sade Unknown Family History?Heart Disease, Unknown Unknown January 10, 2014 1:53am Family History?Heart Disease, Unknown Unknown January 10, 2014 1:53am Advance Directives No Advanced Directives Records FoundDocuments on File Type Date Recorded Patient Surgical Services Tech Expl anation Advance Directive(s) 01/08/2016 8:24 AM [...] Comments Full Code Order Discussed With: Patient Advance Directive Response Recorded Date/ Time Do you have a Healthcare Power of Computer Publisher? No December 17, 2024 7:15pm Advance Directives No January 24, 2015 1:51pm Reason for Referral Specialty Diagnoses / Procedures Referred By Contac t Referred To Contact Optometry Diagnoses Type 2 diabetes mellitus without complication, without long-term current use of insulin (HCC) Procedures CONSULT TO OPTOMETRY OFFICE/OUTPATIENT [facility] MDM 60-74 MINUTES Rani Perales, MALIA.[employer]HE[employer] SHIP[employer] [address] [place] [address] Referral ID Status Reason Start Date Expiration Date Visits Requested Visits Authorized [id number] Pending Review PCP Requested Referral 06/16/2022 06/16/2023 1 1 Specialty Diagnoses / Procedures Referred By Contac t Referred To Contact General Surgery Diagnoses Screening for colon cancer Procedures CONSULT TO GENERAL SURGERY OFFICE/OUTPATIENT NEW HIGH MDM 60-74 MINUTES Rani Perales, MALIA.[employer]HE[employer] SH[employer] [address] [place] [address] Referral ID Status Reason Start Date Expiration Date Visits Requested Visits Authorized [id number] Pending Review PCP Requested Referral 06/16/2022 06/16/2023 1 1 Specialty Diagnoses / Procedures Referred By Contac t Referred To Contact General Surgery Diagnoses Screening for colon cancer Procedures CONSULT TO GENERAL SURGERY OFFICE/OUTPATIENT NEW HIGH MDM 60-74 MINUTES Wes Gates MD [address] [place] [address] Referral ID Status Reason Start Date Expiration Date Visits Requested Visits Authorized [id number] Pending Review PCP Requested Referral 12/21/2022 12/21/2023 1 1 Specialty Diagnoses / Procedures Referred By Contac t Referred To Contact Diagnoses Type 2 diabetes mellitus without complication, without long-term current use of insulin ([facility]) Wes Gates MD [address] [place] [address] Referral ID Status Reason Start Date Expiration Date Visits Re quested Visits Authorized [id number] Closed 1 1 Specialty Diagnoses / Procedures Referred By Contac t Referred To Contact Diagnoses Type 2 diabetes mellitus without complication, without long-term current use of insulin ([facility]) [place] [address] [place] [address] Referral ID Status Reason Start Date Expiration Date V isits Requested Visits Authorized [id number] Pending Review 1 1 Specialty Diagnoses / Procedures Referred By Terryac t Referred To Contact [facility] Diagnoses Coronary artery disease involving [place] coronary artery of [place] heart with unstable angina pectoris ([facility]) Essential hypertension Procedures ECG COMPLETE ECG ROUTINE ECG W/LEAST 12 LDS W/I&[place] [address] [place] [address] [facility] [address] [place] [address] Referral ID Status Reason Start Date Expiration Date Visits Requested Visits Authorized [id number] Pending Review Auto-Generat ed Referral 05/11/2023 05/10/2024 [...] Given 09/01/2022 2:30 PM EDT 1 Drop Chief Complaint and Reason for Visit Chief Complaint Admit Date dizziness December 17, 2024 4:44 pm Additional Source Comments (unrecognized sect ion and content) No Status Records FoundNo Status Records FoundNo Status Records FoundNo Status Records FoundNo Status Records FoundNo Status Records Found INFORMATION SOURCE (unrecogn ized section and content) DATE CREATED AUTHOR 11/09/2020 [facility] DATE CREATED AUTHOR AUTHOR'S ORGANIZ ATION 03/10/2023 [facility] DATE CREATED AUTHOR AUTHOR'S ORGANIZ ATION 07/04/2023 [facility] DATE CREATED AUTHOR AUTHOR'S ORGANIZ ATION 12/26/2024 [facility] DATE CREATED AUTHOR AUTHOR'S ORGANIZ ATION 12/26/2024 [facility] DATE CREATED AUTHOR AUTHOR'S ORGANIZ ATION 01/07/2025 [facility] Source Comments (unrecognize d section and content) In the event this informatio n is protected by the Federal Confidentiality of Alcohol and Drug Abuse Patient Records regulations: The Federal rules restrict any use of the information to criminally investigate or prosecute any alcohol or drug abuse patient.[facility] Center[facility] the event this information is protected by the Federal Confidentiality of Alcohol and Drug Abuse Patient Records regulations: The Federal rules restrict any use of the information to criminally investigate or prosecute any alcohol or drug abuse patient.[facility] CenterIn the event this information is protected by the Federal Confidentiality of Alcohol and Drug Abuse Patient Records regulations: The Federal rules restrict any use of the information to criminally investigate or prosecute any alcohol or drug abuse patient.[facility] CenterIn the event this information is protected by the Federal Confidentiality of Alcohol and Drug Abuse Patient Records regulations: The Federal rules restrict any use of the information to criminally investigate or prosecute any alcohol or drug abuse patient.[facility] CenterIn the event this information is protected by the Federal Confidentiality of Alcohol and Drug Abuse Patient Records regulations: The Federal rules restrict any use of the information to criminally investigate or prosecute any alcohol or drug abuse patient.[facility] CenterIn the event this information is protected by the Federal Confidentiality of Alcohol and Drug Abuse Patient Records regulations: The Federal rules restrict any use of the information to criminally investigate or prosecute any alcohol or drug abuse patient.[facility] CenterIn the event this information is protected by the Federal Confidentiality of Alcohol and Drug Abuse Patient Records regulations: The Federal rules restrict any use of the information to criminally investigate or prosecute any alcohol or drug abuse patient.[facility] CenterIn the event this information is protected by the Federal Confidentiality of Alcohol and Drug Abuse Patient Records regulations: The Federal rules restrict any use of the information to criminally investigate or prosecute any alcohol or drug abuse patient.[facility] CenterIn the event this information is protected by the Federal Confidentiality of Alcohol and Drug Abuse Patient Records regulations: The Federal rules restrict any use of the information to criminally investigate or prosecute any alcohol or drug abuse patient.[facility] CenterIn the event this information is protected by the Federal Confidentiality of Alcohol and Drug Abuse Patient Records regulations: The Federal rules restrict any use of the information to criminally investigate or prosecute any alcohol or drug abuse patient.[facility] CenterIn the event this information is protected by the Federal Confidentiality of Alcohol and Drug Abuse Patient Records regulations: The Federal rules restrict any use of the information to criminally investigate or prosecute any alcohol or drug abuse patient.[facility] CenterIn the event this information is protected by the Federal Confidentiality of Alcohol and Drug Abuse Patient Records regulations: The Federal rules restrict any use of the information to criminally investigate or prosecute any alcohol or drug abuse patient.[facility] CenterIn the event this information is protected by the Federal Confidentiality of Alcohol and Drug Abuse Patient Records regulations: The Federal rules restrict any use of the information to criminally investigate or prosecute any alcohol or drug abuse patient.[facility] CenterIn the event this information is protected by the Federal Confidentiality of Alcohol and Drug Abuse Patient Records regulations: The Federal rules restrict any use of the information to criminally investigate or prosecute any alcohol or drug abuse patient.[facility] CenterIn the event this information is protected by the Federal Confidentiality of Alcohol and Drug Abuse Patient Records regulations: The Federal rules restrict any use of the information to criminally investigate or prosecute any alcohol or drug abuse patient.[facility] CenterIn the event this information is protected by the Federal Confidentiality of Alcohol and Drug Abuse Patient Records regulations: The Federal rules restrict any use of the information to criminally investigate or prosecute any alcohol or drug abuse patient.[facility] CenterIn the event this information is protected by the Federal Confidentiality of Alcohol and Drug Abuse Patient Records regulations: The Federal rules restrict any use of the information to criminally investigate or prosecute any alcohol or drug abuse patient.[facility] CenterIn the event this information is protected by the Federal Confidentiality of Alcohol and Drug Abuse Patient Records regulations: The Federal rules restrict any use of the information to criminally investigate or prosecute any alcohol or drug abuse patient.[facility] CenterIn the event this information is protected by the Federal Confidentiality of Alcohol and Drug Abuse Patient Records regulations: The Federal rules restrict any use of the information to criminally investigate or prosecute any alcohol or drug abuse patient.[facility] CenterIn the event this information is protected by the Federal Confidentiality of Alcohol and Drug Abuse Patient Records regulations: The Federal rules restrict any use of the information to criminally investigate or prosecute any alcohol or drug abuse patient.[facility] CenterIn the event this information is protected by the Federal Confidentiality of Alcohol and Drug Abuse Patient Records regulations: The Federal rules restrict any use of the information to criminally investigate or prosecute any alcohol or drug abuse patient.[facility] CenterIn the event this information is protected by the Federal Confidentiality of Alcohol and Drug Abuse Patient Records regulations: The Federal rules restrict any use of the information to criminally investigate or prosecute any alcohol or drug abuse patient.[facility] CenterIn the event this information is protected by the Federal Confidentiality of Alcohol and Drug Abuse Patient Records regulations: The Federal rules restrict any use of the information to criminally investigate or prosecute any alcohol or drug abuse patient.[facility] CenterIn the event this information is protected by the Federal Confidentiality of Alcohol and Drug Abuse Patient Records regulations: The Federal rules restrict any use of the information to criminally investigate or prosecute any alcohol or drug abuse patient.[facility] CenterIn the event this information is protected by the Federal Confidentiality of Alcohol and Drug Abuse Patient Records regulations: The Federal rules restrict any use of the information to criminally investigate or prosecute any alcohol or drug abuse patient.[facility] CenterIn the event this information is protected by the Federal Confidentiality of Alcohol and Drug Abuse Patient Records regulations: The Federal rules restrict any use of the information to criminally investigate or prosecute any alcohol or drug abuse patient.[facility] CenterIn the event this information is protected by the Federal Confidentiality of Alcohol and Drug Abuse Patient Records regulations: The Federal rules restrict any use of the information to criminally investigate or prosecute any alcohol or drug abuse patient.[facility] CenterIn the event this information is protected by the Federal Confidentiality of Alcohol and Drug Abuse Patient Records regulations: The Federal rules restrict any use of the information to criminally investigate or prosecute any alcohol or drug abuse patient.[facility] CenterIn the event this information is protected by the Federal Confidentiality of Alcohol and Drug Abuse Patient Records regulations: The Federal rules restrict any use of the information to criminally investigate or prosecute any alcohol or drug abuse patient.[facility] CenterIn the event this information is protected by the Federal Confidentiality of Alcohol and Drug Abuse Patient Records regulations: The Federal rules restrict any use of the information to criminally investigate or prosecute any alcohol or drug abuse patient.[facility] CenterIn the event this information is protected by the Federal Confidentiality of Alcohol and Drug Abuse Patient Records regulations: The Federal rules restrict any use of the information to criminally investigate or prosecute any alcohol or drug abuse patient.[facility] CenterIn the event this information is protected by the Federal Confidentiality of Alcohol and Drug Abuse Patient Records regulations: The Federal rules restrict any use of the information to criminally investigate or prosecute any alcohol or drug abuse patient.[facility] CenterIn the event this information is protected by the Federal Confidentiality of Alcohol and Drug Abuse Patient Records regulations: The Federal rules restrict any use of the information to criminally investigate or prosecute any alcohol or drug abuse patient.[facility] CenterIn the event this information is protected by the Federal Confidentiality of Alcohol and Drug Abuse Patient Records regulations: The Federal rules restrict any use of the information to criminally investigate or prosecute any alcohol or drug abuse patient.[facility] CenterIn the event this information is protected by the Federal Confidentiality of Alcohol and Drug Abuse Patient Records regulations: The Federal rules restrict any use of the information to criminally investigate or prosecute any alcohol or drug abuse patient.[facility] CenterIn the event this information is protected by the Federal Confidentiality of Alcohol and Drug Abuse Patient Records regulations: The Federal rules restrict any use of the information to criminally investigate or prosecute any alcohol or drug abuse patient.[facility] CenterIn the event this information is protected by the Federal Confidentiality of Alcohol and Drug Abuse Patient Records regulations: The Federal rules restrict any use of the information to criminally investigate or prosecute any alcohol or drug abuse patient.[facility] CenterIn the event this information is protected by the Federal Confidentiality of Alcohol and Drug Abuse Patient Records regulations: The Federal rules restrict any use of the information to criminally investigate or prosecute any alcohol or drug abuse patient.[facility] CenterIn the event this information is protected by the Federal Confidentiality of Alcohol and Drug Abuse Patient Records regulations: The Federal rules restrict any use of the information to criminally investigate or prosecute any alcohol or drug abuse patient.[facility] CenterIn the event this information is protected by the Federal Confidentiality of Alcohol and Drug Abuse Patient Records regulations: The Federal rules restrict any use of the information to criminally investigate or prosecute any alcohol or drug abuse patient.[facility] CenterIn the event this information is protected by the Federal Confidentiality of Alcohol and Drug Abuse Patient Records regulations: The Federal rules restrict any use of the information to criminally investigate or prosecute any alcohol or drug abuse patient.[facility] CenterIn the event this information is protected by the Federal Confidentiality of Alcohol and Drug Abuse Patient Records regulations: The Federal rules restrict any use of the information to criminally investigate or prosecute any alcohol or drug abuse patient.[facility] CenterIn the event this information is protected by the Federal Confidentiality of Alcohol and Drug Abuse Patient Records regulations: The Federal rules restrict any use of the information to criminally investigate or prosecute any alcohol or drug abuse patient.[facility] CenterIn the event this information is protected by the Federal Confidentiality of Alcohol and Drug Abuse Patient Records regulations: The Federal rules restrict any use of the information to criminally investigate or prosecute any alcohol or drug abuse patient.[facility] CenterIn the event this information is protected by the Federal Confidentiality of Alcohol and Drug Abuse Patient Records regulations: The Federal rules restrict any use of the information to criminally investigate or prosecute any alcohol or drug abuse patient.[facility] CenterIn the event this information is protected by the Federal Confidentiality of Alcohol and Drug Abuse Patient Records regulations: The Federal rules restrict any use of the information to criminally investigate or prosecute any alcohol or drug abuse patient.[facility] CenterIn the event this information is protected by the Federal Confidentiality of Alcohol and Drug Abuse Patient Records regulations: The Federal rules restrict any use of the information to criminally investigate or prosecute any alcohol or drug abuse patient.[facility] CenterIn the event this information is protected by the Federal Confidentiality of Alcohol and Drug Abuse Patient Records regulations: The Federal rules restrict any use of the information to criminally investigate or prosecute any alcohol or drug abuse patient.[facility] CenterIn the event this information is protected by the Federal Confidentiality of Alcohol and Drug Abuse Patient Records regulations: The Federal rules restrict any use of the information to criminally investigate or prosecute any alcohol or drug abuse patient.[facility] CenterIn the event this information is protected by the Federal Confidentiality of Alcohol and Drug Abuse Patient Records regulations: The Federal rules restrict any use of the information to criminally investigate or prosecute any alcohol or drug abuse patient.[facility] CenterIn the event this information is protected by the Federal Confidentiality of Alcohol and Drug Abuse Patient Records regulations: The Federal rules restrict any use of the information to criminally investigate or prosecute any alcohol or drug abuse patient.[facility] CenterIn the event this information is protected by the Federal Confidentiality of Alcohol and Drug Abuse Patient Records regulations: The Federal rules restrict any use of the information to criminally investigate or prosecute any alcohol or drug abuse patient.[facility] CenterIn the event this information is protected by the Federal Confidentiality of Alcohol and Drug Abuse Patient Records regulations: The Federal rules restrict any use of the information to criminally investigate or prosecute any alcohol or drug abuse patient.[facility] CenterIn the event this information is protected by the Federal Confidentiality of Alcohol and Drug Abuse Patient Records regulations: The Federal rules restrict any use of the information to criminally investigate or prosecute any alcohol or drug abuse patient.[facility] CenterIn the event this information is protected by the Federal Confidentiality of Alcohol and Drug Abuse Patient Records regulations: The Federal rules restrict any use of the information to criminally investigate or prosecute any alcohol or drug abuse patient.[facility] CenterIn the event this information is protected by the Federal Confidentiality of Alcohol and Drug Abuse Patient Records regulations: The Federal rules restrict any use of the information to criminally investigate or prosecute any alcohol or drug abuse patient.[facility] CenterIn the event this information is protected by the Federal Confidentiality of Alcohol and Drug Abuse Patient Records regulations: The Federal rules restrict any use of the information to criminally investigate or prosecute any alcohol or drug abuse patient.[facility] CenterIn the event this information is protected by the Federal Confidentiality of Alcohol and Drug Abuse Patient Records regulations: The Federal rules restrict any use of the information to criminally investigate or prosecute any alcohol or drug abuse patient.[facility] CenterIn the event this information is protected by the Federal Confidentiality of Alcohol and Drug Abuse Patient Records regulations: The Federal rules restrict any use of the information to criminally investigate or prosecute any alcohol or drug abuse patient.[facility] CenterIn the event this information is protected by the Federal Confidentiality of Alcohol and Drug Abuse Patient Records regulations: The Federal rules restrict any use of the information to criminally investigate or prosecute any alcohol or drug abuse patient.[facility] CenterIn the event this information is protected by the Federal Confidentiality of Alcohol and Drug Abuse Patient Records regulations: The Federal rules restrict any use of the information to criminally investigate or prosecute any alcohol or drug abuse patient.[facility] CenterIn the event this information is protected by the Federal Confidentiality of Alcohol and Drug Abuse Patient Records regulations: The Federal rules restrict any use of the information to criminally investigate or prosecute any alcohol or drug abuse patient.[facility] CenterIn the event this information is protected by the Federal Confidentiality of Alcohol and Drug Abuse Patient Records regulations: The Federal rules restrict any use of the information to criminally investigate or prosecute any alcohol or drug abuse patient.[facility] CenterIn the event this information is protected by the Federal Confidentiality of Alcohol and Drug Abuse Patient Records regulations: The Federal rules restrict any use of the information to criminally investigate or prosecute any alcohol or drug abuse patient.[facility] CenterIn the event this information is protected by the Federal Confidentiality of Alcohol and Drug Abuse Patient Records regulations: The Federal rules restrict any use of the information to criminally investigate or prosecute any alcohol or drug abuse patient.[facility] CenterIn the event this information is protected by the Federal Confidentiality of Alcohol and Drug Abuse Patient Records regulations: The Federal rules restrict any use of the information to criminally investigate or prosecute any alcohol or drug abuse patient.[facility] CenterIn the event this information is protected by the Federal Confidentiality of Alcohol and Drug Abuse Patient Records regulations: The Federal rules restrict any use of the information to criminally investigate or prosecute any alcohol or drug abuse patient.[facility] CenterIn the event this information is protected by the Federal Confidentiality of Alcohol and Drug Abuse Patient Records regulations: The Federal rules restrict any use of the information to criminally investigate or prosecute any alcohol or drug abuse patient.[facility] CenterIn the event this information is protected by the Federal Confidentiality of Alcohol and Drug Abuse Patient Records regulations: The Federal rules restrict any use of the information to criminally investigate or prosecute any alcohol or drug abuse patient.[facility] Reason for Visit (unrecogniz ed section and content) Reason Comments PT Progress Note Specialty Diagnoses / Procedures Referred By Lashawn devine Referred To Contact [facility] Diagnoses Bilateral hip pain Acute pain of right shoulder Procedures CONSULT TO PHYSICAL THERAPY PHYSICAL THERAPY EVALUATION HIGH COMPLEX 45 MINS Wes Gates MD [address] [place] [address] Phone: tel: fax: [facility] [address] [place] [address] Referral ID Status Reason Start Date Expiration Date Visits Requested Visits Authorized [id number] Authorized Auto-Generat ed Referral 06/07/2024 06/06/2025 8 8 Reason Comments Physical Therapy Reason Comments Hospital F/U Stent follow up Specialty Diagnoses / Procedures Referred By Lashawn devine Referred To Contact [facility] DEPARTMENT Diagnoses All Medically Necessaru Consults/Treatments Procedures All Medically Necessaru Consults/Treatments [place] [facility] [place] [address] Referral ID Status Reason Start Date Expiration Date Visits Requested Visits Authorized [id number] Authorized Financial Clearance Required - Self Pay Patient Cleared - Qualified HCAP/501/FA 3 07/20/2023 99 99 Reason Comments Transition Of Care Reason Comments Follow Up 2 month follow up Specialty Diagnoses / Procedures Referred By Lashawn devine Referred To Contact [facility] Department Diagnoses Procedures Self [facility] Referral ID Status Reason Start Date Expiration Date V isits Requested Visits Authorized [id number] Closed Financial Clearance Required - Self Pay Patient Cleared - Qualified HCAP/501/FA Patient Cleared - Qualified 100% FAS 05/22/2021 08/20/2021 99 99 Reason Comments Patient Update Reason Onset Date Comments Refill Request 02/03/2022 Reason Comments Pain Left calf pain. Warner pop playing football yesterday. Diabetes Specialty Diagnoses / Procedures Referred By Lashawn devine Referred To Contact Family Medicine / FAMILY MEDICINE Diagnoses My diabetes Procedures MYC OFFICE VISIT Self Wes Gates MD [address] [place] [address] Referral ID Status Reason Start Date Expiration Date Visits Requested Visits Authorized [id number] Authorized Patient Cleared - Qualified 100% FAS [...] OFFICE/OUTPATIENT NEW HIGH MDM 60-74 MINUTES Rani Perales APRN.WHEAT SHIPPER [address] [place] [address] [address] [id number] Referral ID Status Reason Start Date Expiration Date Visits Requested Visits Authorized [id number] Authorized PCP Requested Referral Financial Clearance Required - Self Pay Patient Cleared - Qualified HCAP/501/FA 06/16/2022 09/14/2022 99 99 Reason Comments Follow Up Specialty Diagnoses / Procedures Referred By Lashawn devine Referred To Contact Diagnoses FA Procedures [facility] Referral ID Status Reason Start Date Expiration Date Visits Requested Visits Authorized [id number] Authorized Patient Cleared - Qualified HCAP/501/FA 09/29/2022 12/28/2022 99 99 Reason Comments Follow Up Reason Comments prescription assistance Reason Comments Diabetes Reason Comments Hospital Admission Hospital transfer [facility]. Reason Onset Date Comments Appointment 04/29/2023 Reason Onset Date Comments Transition Of Care 04/30/2023 TCM Initial H ospital Discharge 04/29/2023 Reason Onset Date Comments Transition Of Care 05/12/2023 TCM Follow Up Reason Comments CARD Follow Up 3 Month FV 04/27/23 PCI x3 (diagonal, pda and plv1).Pt [...] 02/17/24 AmoryEKG 05/11/23 Cath 04/28/23Echo 04/27/23Stress 04/26/23 Reason Comments 6 Month Exam ER F/U Reason Onset Date Comments Refill Request 01/03/2025 Reason Comments Reminder Call Care Teams (unrecognized sec tion and content) Electrical Electronics Technician Relationship Specialty Start Date End Date Wes Gates MD [address] [place] [address] PCP - General Family Practice 07/04/21 Ashely Weiss formerly [facility] [address] [facility] [place] [address] Pharmacist Pharmacy 08/06/21 Electrical Electronics Technician Relationship Specialty Start Date End Date Wes Gates MD [address] [facility] [place] [address] PCP - General Family Practice 07/04/21 [facility] [address] [facility] [place] [address] Pharmacist Pharmacy 08/06/21 Electrical Electronics Technician Relationship Specialty Start Date End Date Wes Gates MD [address] [facility] [place] [address] PCP - General Family Practice 07/04/21 [facility] [address] [facility] [place] [address] Pharmacist Pharmacy 08/06/21 Electrical Electronics Technician Relationship Specialty Start Date End Date Wes Gates MD [address] [facility] [place] [address] PCP - General Family Practice 07/04/21 [facility] [address] [facility] [place] [address] Pharmacist Pharmacy 08/06/21 Electrical Electronics Technician Relationship Specialty Start Date End Date Wes Gates MD [address] [facility] [place] [address] PCP - General Family Practice 07/04/21 [facility] [address] [facility] [place] [address] Pharmacist Pharmacy 08/06/21 Electrical Electronics Technician Relationship Specialty Start Date End Date Wes Gates MD [address] [facility] [place] [address] PCP - General Family Medicine 07/04/21 [facility] [address] [facility] [place] [address] Pharmacist Pharmacy 08/06/21 Electrical Electronics Technician Relationship Specialty Start Date End Date Wes Gates MD [address] [facility] [place] [address] PCP - General Family Medicine 07/04/21 [facility] [address] [facility] [place] [address] Pharmacist Pharmacy 08/06/21 Electrical Electronics Technician Relationship Specialty Start Date End Date Wes Gates MD [address] [facility] [place] [address] PCP - General Family Medicine 07/04/21 [facility] [address] [facility] [place] [address] Pharmacist Pharmacy 08/06/21 Electrical Electronics Technician Relationship Specialty Start Date End Date Wes Gates MD [address] [facility] [place] [address] PCP - General Family Medicine 07/04/21 [facility] [address] [facility] [place] [address] Pharmacist Pharmacy 08/06/21 Electrical Electronics Technician Relationship Specialty Start Date End Date Wes Gates MD [address] [facility] [place] [address] PCP - General Family Medicine 07/04/21 [facility] [address] [facility] [place] [address] Pharmacist Pharmacy 08/06/21 Electrical Electronics Technician Relationship Specialty Start Date End Date Chata Joyce DO PCP - General Internal Medicine 10/26/13 07/03/21 Wes Gates MD [address] [facility] [place] [address] PCP - General Family Medicine 07/04/21 [facility] [address] [facility] [place] [address] Pharmacist Pharmacy 08/06/21 Electrical Electronics Technician Relationship Specialty Start Date End Date Wes Gates MD [address] [facility] [place] [address] PCP - General Family Medicine 07/04/21 [facility] [address] [facility] [place] [address] Pharmacist Pharmacy 08/06/21 Electrical Electronics Technician Relationship Specialty Start Date End Date Wes Gates MD [address] [facility] [place] [address] PCP - General Family Medicine 07/04/21 [facility] [address] [facility] [place] [address] Pharmacist Pharmacy 08/06/21 Electrical Electronics Technician Relationship Specialty Start Date End Date Wes Gates MD [address] [facility] [place] [address] PCP - General Family Medicine 07/04/21 [facility] [address] [facility] [place] [address] Pharmacist Pharmacy 08/06/21 Electrical Electronics Technician Relationship Specialty Start Date End Date Wes Gates MD [address] [facility] [place] [address] PCP - General Family Medicine 07/04/21 Ashely Weiss, formerly [facility] [address] [facility] [place] [address] Pharmacist Pharmacy 08/06/21 Electrical Electronics Technician Relationship Specialty Start Date End Date Wes Gates MD [address] [facility] [place] [address] PCP - General Family Medicine 07/04/21 [facility] [address] [place] [address] Pharmacist Pharmacy 08/06/21 Electrical Electronics Technician Relationship Specialty Start Date End Date Wes Gates MD [address] [facility] [place] [address] PCP - General Family Medicine 07/04/21 [facility] [address] [facility] [place] [address] Pharmacist Pharmacy 08/06/21 Electrical Electronics Technician Relationship Specialty Start Date End Date Wes Gates MD [address] [facility] [place] [address] PCP - General Family Medicine 07/04/21 [facility] [address] [facility] [place] [address] Pharmacist Pharmacy 08/06/21 Electrical Electronics Technician Relationship Specialty Start Date End Date Wes Gates MD [address] [facility] [place] [address] PCP - General Family Medicine 07/04/21 [facility] [address] [facility] [place] [address] Pharmacist Pharmacy 08/06/21 Electrical Electronics Technician Relationship Specialty Start Date End Date Wes Gates MD [address] [facility] [place] [address] PCP - General Family Medicine 07/04/21 [facility] [address] [place] [address] Pharmacist Pharmacy 08/06/21 Electrical Electronics Technician Relationship Specialty Start Date End Date Wes Gates MD [address] [place] [address] PCP - General Family Medicine 07/04/21 [facility] [address] [facility] [place] [address] Pharmacist Pharmacy 08/06/21 Electrical Electronics Technician Relationship Specialty Start Date End Date Wes Gates MD [address] [place] [address] PCP - General Family Medicine 07/04/21 [facility] [address] [place] [address] Pharmacist Pharmacy 08/06/21 Electrical Electronics Technician Relationship Specialty Start Date End Date Wes Gates MD [address] [place] [address] PCP - General Family Medicine 07/04/21 [facility] [address] [place] [address] Pharmacist Pharmacy 08/06/21 Electrical Electronics Technician Relationship Specialty Start Date End Date Wes Gates MD [address] [place] [address] PCP - General Family Medicine 07/04/21 Ashely Weiss, formerly [facility] [address] [place] [address] Pharmacist Pharmacy 08/06/21 Kenzie Dugan, KAN [address] [place] [phone] (Work) Primary Care Charge Account Clerk 04/30/23 05/28/23 Electrical Electronics Technician Relationship Specialty Start Date End Date Wes Gates MD [address] [facility] [place] [address] PCP - General Family Medicine 07/04/21 [facility] [address] [facility] [place] [address] Pharmacist Pharmacy 08/06/21 Kenzie Dugan, RN [address] [place] [address] Primary Care Charge Account Clerk 04/30/23 05/28/23 Electrical Electronics Technician Relationship Specialty Start Date End Date Wes Gates MD [address] [place] [address] PCP - General Family Medicine 07/04/21 [facility] [address] [place] [address] Pharmacist Pharmacy 08/06/21 Kenzie Dugan, RN [address] [place] [address] Primary Care Charge Account Clerk 04/30/23 05/28/23 Electrical Electronics Technician Relationship Specialty Start Date End Date Wes Gates MD [address] [place] [address] PCP - General Family Medicine 07/04/21 [facility] [address] [place] [address] Pharmacist Pharmacy 08/06/21 Kenzie Dugan, RN [address] [place] [address] Primary Care Charge Account Clerk 04/30/23 05/28/23 Electrical Electronics Technician Relationship Specialty Start Date End Date Wes Gates MD [address] [facility] [place] [address] PCP - General Family Medicine 07/04/21 [facility] [address] [facility] [place] [address] Pharmacist Pharmacy 08/06/21 Kenzie Dugan, KAN [address] [place] [address] Primary Care Charge Account Clerk 04/30/23 05/28/23 Electrical Electronics Technician Relationship Specialty Start Date End Date Wes Gates MD [address] [place] [address] PCP - General Family Medicine 07/04/21 [facility] [address] [place] [address] Pharmacist Pharmacy 08/06/21 Electrical Electronics Technician Relationship Specialty Start Date End Date Wes Gates MD [address] [place] [address] PCP - General Family Medicine 07/04/21 [facility] [address] [place] [address] Pharmacist Pharmacy 08/06/21 Electrical Electronics Technician Relationship Specialty Start Date End Date Wes Gates MD [address] [facility] [place] [address] PCP - General Family Medicine 07/04/21 Electrical Electronics Technician Relationship Specialty Start Date End Date Wes Gates MD [address] [facility] [place] [address] PCP - General Family Medicine 07/04/21 Electrical Electronics Technician Relationship Specialty Start Date End Date Wes Gates MD [address] [facility], [place] [address] PCP - General Family Medicine 07/04/21 Electrical Electronics Technician Relationship Specialty Start Date End Date Wes Gates MD [address] [facility], [place] [address] PCP - General Family Medicine 07/04/21 Electrical Electronics Technician Relationship Specialty Start Date End Date Wes Gates MD [address] [facility] [place] [address] PCP - General Family Medicine 07/04/21 Electrical Electronics Technician Relationship Specialty Start Date End Date Wes Gates MD [address] [facility] [place] [address] PCP - General Family Medicine 07/04/21 Rani Perales APRN.WHEAT SHIPPER [address] [place] [address] Airborne Operations Manager Family Medicine 05/15/24 Beatriz Matos APRN.WHEAT SHIPPER [address] [facility] [place] [address] Airborne Operations Manager Family Medicine 05/15/24 Electrical Electronics Technician Relationship Specialty Start Date End Date Wes Gates MD [address] [facility] [place] [address] PCP - General Family Medicine 07/04/21 Rani Perales APRN.WHEAT SHIPPER [address] [place] [address] Airborne Operations Manager Family Medicine 05/15/24 Beatriz Matos APRN.WHEAT SHIPPER [address] [facility] [place] [address] Airborne Operations Manager Family Medicine 05/15/24 Electrical Electronics Technician Relationship Specialty Start Date End Date Wes Gates MD [address] [facility] [place] [address] PCP - General Family Medicine 07/04/21 Rani Perales APRN.WHEAT SHIPPER [address] [place] [address] Airborne Operations Manager Family Medicine 05/15/24 Beatriz Matos APRN.WHEAT SHIPPER [address] [facility] [place] [address] [facility]borne Operations [facility] 05/15/24 Electrical Electronics Technician Relationship Specialty Start Date End Date Wes Gates MD [address] [facility] [place] [address] PCP - General Family Medicine 07/04/21 Rani Perales APRN.WHEAT SHIPPER [address] [place] [address] Airborne Operations Manager Family Medicine 05/15/24 Beatriz Matos HYDRAULIC GOVERNOR ASSEMBLER.WHEAT SHIPPER [address] [facility] [place] [address] Airborne Operations Manager Family Medicine 05/15/24 Electrical Electronics Technician Relationship Specialty Start Date End Date Wes Gates MD [address] [facility] [place] [address] PCP - General Family Medicine 07/04/21 Rani Perales HYDRAULIC GOVERNOR ASSEMBLER.WHEAT SHIPPER [address] [place] [address] Airborne Operations Manager Family [facility] 05/15/24 Beatriz Matos APRN.WHEAT SHIPPER [address] [place] [address] [facility] 05/15/24 Electrical Electronics Technician Relationship Specialty Start Date End Date Wes Gates MD [address] [place] [address] PCP - General Family Medicine 07/04/21 Rani Perales APRN.WHEAT SHIPPER [address] [place] [address] [facility] 05/15/24 Beatriz Matos APRN.WHEAT SHIPPER [address] [place] [address] [facility] 05/15/24 Electrical Electronics Technician Relationship Specialty Start Date End Date Wes Gates MD [address] [place] [address] PCP - General Family Medicine 07/04/21 Rani Perales APRN.WHEAT SHIPPER [address] [place] [address] [facility] 05/15/24 Beatriz Matos APRN.WHEAT SHIPPER [address] [place] [address] [facility] 05/15/24 Electrical Electronics Technician Relationship Specialty Start Date End Date Wes Gates MD [address] [facility] [place] [address] PCP - General Family Medicine 07/04/21 Rani Perales APRN.WHEAT SHIPPER [address] [place] [address] Airborne Operations Manager Family [facility] 05/15/24 Beatriz Matos HYDRAULIC GOVERNOR ASSEMBLER.WHEAT SHIPPER [address] [facility] [place] [address] [facility] 05/15/24 Electrical Electronics Technician Relationship Specialty Start Date End Date Wes Gates MD [address] [place] [address] PCP - General Family Medicine 07/04/21 Rani Perales APRN.WHEAT SHIPPER [address] [place] [address] [facility] 05/15/24 Beatriz Matos HYDRAULIC GOVERNOR ASSEMBLER.WHEAT SHIPPER [address] [place] [address] [facility] 05/15/24 Electrical Electronics Technician Relationship Specialty Start Date End Date Wes Gates MD [address] [place] [address] PCP - General Family Medicine 07/04/21 Rani Perales HYDRAULIC GOVERNOR ASSEMBLER.WHEAT SHIPPER [address] [place] [address] [facility] 05/15/24 Beatriz Matos HYDRAULIC GOVERNOR ASSEMBLER.WHEAT SHIPPER [address] [facility] [place] [place] [address] [facility] 05/15/24 Electrical Electronics Technician Relationship Specialty Start Date End Date Wes Gates MD [address] [facility] [place] [address] PCP - General Family Medicine 07/04/21 Rani Perales APRN.WHEAT SHIPPER [address] [facility] [place] [address] Airborne Operations Manager Family Medicine 05/15/24 Beatriz Matos APRN.WHEAT SHIPPER [address] [facility] [place] [address] Airborne Operations Manager [facility] 05/15/24 Electrical Electronics Technician Relationship Specialty Start Date End Date Wes Gates MD [address] [facility] [place] [address] PCP - General Family Medicine 07/04/21 Rani Perales APRN.WHEAT SHIPPER [address] [facility] [place] [address] Airborne Operations Manager Family [facility] 05/15/24 Beatriz Matos HYDRAULIC GOVERNOR ASSEMBLER.WHEAT SHIPPER [address] [facility] [place] [address] Airborne Operations Manager [facility] 05/15/24 Electrical Electronics Technician Relationship Specialty Start Date End Date Wes Gates MD [address] [facility] [place] [address] PCP - General Family Medicine 07/04/21 Rani Perales APRN.WHEAT SHIPPER [address] [facility] [place] [address] Airborne Operations Manager [facility] 05/15/24 Beatriz Matos APRN.WHEAT SHIPPER [address] [place] [address] Airborne Operations Manager [facility] 05/15/24 Electrical Electronics Technician Relationship Specialty Start Date End Date Wes Gates MD [address] [place] [address] PCP - General Family Medicine 07/04/21 Rani Perales, HYDRAULIC GOVERNOR ASSEMBLER.WHEAT SHIPPER [address] [place] [address] Airborne Operations Manager Family Medicine 05/15/24 Beatriz Matos HYDRAULIC GOVERNOR ASSEMBLER.WHEAT SHIPPER [address] [place] [address] [facility] 05/15/24 Electrical Electronics Technician Relationship Specialty Start Date End Date Wes Gates MD [address] [place] [address] PCP - General Family Medicine 07/04/21 Rani Perales, HYDRAULIC GOVERNOR ASSEMBLER.WHEAT SHIPPER [address] [place] [address] Airborne Operations Manager Family [facility] 05/15/24 Beatriz Matos HYDRAULIC GOVERNOR ASSEMBLER.WHEAT SHIPPER [address] [place] [address] Airborne Operations Manager [facility] 05/15/24 Electrical Electronics Technician Relationship Specialty Start Date End Date Wes Gates MD [address] [place] [address] PCP - General Family Medicine 07/04/21 Rani Perales, HYDRAULIC GOVERNOR ASSEMBLER.WHEAT SHIPPER [address] [place] [address] [facility] 05/15/24 Beatriz Matos APRN.WHEAT SHIPPER [address] [facility] [place], [place] [address] [facility] Operations ManagerP[facility] 05/15/24 Electrical Electronics Technician Relationship Specialty Start Date End Date Wes Gates MD [address] [place], [place] [address] PCP - General Family Medicine 07/04/21 Rani Perales APRN.WHEAT SHIPPER [address] [place], [place] [address] [facility] 05/15/24 Beatriz Matos APRN.WHEAT SHIPPER [address] [place], [place] [address] [facility] 05/15/24 Team Status: Active Member Role/Relationship Status Dates Dr. Wes Gates MD Primary Care Provider Active Team Status: Inactive Member Role/Relationship Status Dates Dr. Vadim Ng DO Emergency Provider Active S tart: December 17, 2024 End: December 17, 2024 Dr. Wes Gates MD Primary Care Provider Active Start: December 17, 2024 End: December 17, 2024 Electrical Electronics Technician Relationship Specialty Start Date End Date Wes Gates MD [address] [place], [place] [address] PCP - General Family Medicine 07/04/21 Rain Perales APRN.WHEAT SHIPPER [address] [facility], [place] [address] [facility] 05/15/24 Beatriz Matos APRN.WHEAT SHIPPER [address] [place], [place] [phone] [facility] 05/15/24 Electrical Electronics Technician Relationship Specialty Start Date End Date Wes Gates MD [address] [place] [address] PCP - General Family Medicine 07/04/21 Rani Perales APRN.WHEAT SHIPPER [address] [facility] [place] [address] Airborne Operations Manager Family Medicine 05/15/24 Beatriz Matos APRN.WHEAT SHIPPER [address] [facility] [place] [address] [facility] 05/15/24 Electrical Electronics Technician Relationship Specialty Start Date End Date Wes Gates MD [address] [facility] [place] [address] PCP - General Family Medicine 07/04/21 Rani Perales HYDRAULIC GOVERNOR ASSEMBLER.WHEAT SHIPPER [address] [place] [address] [facility] 05/15/24 Beatriz Matos HYDRAULIC GOVERNOR ASSEMBLER.WHEAT SHIPPER [address] [facility] [place] [address] [facility] 05/15/24 Electrical Electronics Technician Relationship Specialty Start Date End Date Wes Gates MD [address] [facility] [place] [address] PCP - General Family Medicine 07/04/21 Rani Perales HYDRAULIC GOVERNOR ASSEMBLER.WHEAT SHIPPER [address] [facility] [place] [address] [facility] 05/15/24 Beatriz Matos APRN.WHEAT SHIPPER [address] [place], [place] [address] [facility] 05/15/24 Electrical Electronics Technician Relationship Specialty Start Date End Date Wes Gates MD [address] [place], [place] [id number] PCP - General Family Medicine 07/04/21 Rani Perales APRN.WHEAT SHIPPER [address] [place] [address] [facility] 05/15/24 Beatriz Matos APRN.WHEAT SHIPPER [address] [place], [place] [id number] [facility] 05/15/24 Goals (unrecognized section and content) Goals may be documented in a n alternate section FOR RECORDS PERTAINING TO PATIENTS WHO ARE [...] BE BASED ON THE PRIMARY CLINICAL RECORDS. [employer] provides no warranty or guarantee of the accuracy or completeness of information in this document.
[2025-01-08 23:36] LABS: Anion Gap 13 (5-15); BUN 16 mg/dL (4-19); BUN/Creat Ratio 12.1 RATIO (10-20); Calcium,Total 8.6 mg/dL (7.6-11.0); Carbon Dioxide 20.9 mmol/L (21.0-32.0); Chloride 109 mmol/L (98-108); Glucose 176 mg/dL (70-99); Potassium 4.3 mmol/L (3.3-5.1)
[2025-01-09 00:16] VITALS: BMI 36.8
[2025-01-09 00:23] LABS: Mucous, Urine 0 SEEN /hpf (<or=2+)
[2025-01-09 00:24] LABS: Color, Urine Yellow (Yellow); Glucose, Dipstick 1000 mg/dl (Normal); Ketone-Dipstick Negative (Negative); Leukocyte Esterase-Dipstick Negative /ul (Negative); Nitrite-Dipstick Negative (Negative); Occult Blood-Urine 50 /ul (Negative); Protein-Dipstick Negative (Negative); Specific Gravity, Urine 1.020 (1.002-1.030); Urine Bilirubin Dipstick Negative (Negative)
[2025-01-09 00:30] LABS: Red Blood Cells-Urine 5-10 SEEN /hpf (0-5); Squamous Epithelial Cells - UA 0-5 SEEN /hpf (0-5)
[2025-01-09 00:35] VITALS: BP 142/94; PULSE 62; RESP 14; TEMP 36.6; O2SAT 97
== END 2025-01-09 00:36 | disposition home or self-care (01) ==
PROVIDERS: Emergency Provider Emergency Medicine; PCP Family Medicine; Visit Provider Emergency Medicine
DX: N13.2 Hydronephrosis with renal and ureteral calculous obstruction (principal); E11.9 Type 2 diabetes mellitus without complications; I10 Essential (primary) hypertension; N23 Unspecified renal colic
CPT/HCPCS: 74176; 80048; 81001; 85025; 96361; 96374; 96375; 99283; A4216; J2405

== ENCOUNTER → 2025-05-23 | Outpatient (CLI) | payer MEDICAID, SELFPAY ==
--- NOTE | 2025-05-23 15:42 | RAD_ITS ---
PROCEDURE: CHEST PA AND LATERAL 05/23/2025 REASON FOR EXAM: SOB TECHNIQUE: Procedure Code: RADCXR Modality: DX Procedure: CHEST PA AND LATERAL FINDINGS: No focal consolidation. No pleural effusion or pneumothorax. Cardiac silhouette is within normal limits. No acute fractures. RAD/Chest PA and Lateral IMPRESSION: No focal consolidation. Reading Location: [id number]
[2025-05-23 17:01] LABS: Hematocrit 46.8 % (40-54); Hemoglobin 15.2 g/dL (13.0-16.5); Immature Granulocytes Count 0.020 X10^3/uL (0.0-0.0); Mean Corp Hgb Conc 32.5 g/dL (32-36); Mean Corpuscular Volume 88.1 fL (80-94); Mean Platelet Vol. 9.6 fl (6.2-12.0); NRBC Flagged by Analyzer 0 % (0-5); Platelet Count 202 K/mm3 (150-450); RBC Distribution Width CV 13.5 % (11.6-14.6); RBC Distribution Width SD 43.6 fl (35.1-43.9); Red Blood Count 5.31 M/mm3 (4.6-6.2); White Blood Count 4.8 K/mm3 (4.4-11.0)
[2025-05-23 20:00] LABS: Anion Gap 18 (5-15); BUN 16 mg/dL (4-19); BUN/Creat Ratio 14.3 RATIO (10-20); Calcium,Total 9.0 mg/dL (7.6-11.0); Carbon Dioxide 17.6 mmol/L (21.0-32.0); Chloride 107 mmol/L (98-108); Glucose 166 mg/dL (70-99); Potassium 4.0 mmol/L (3.3-5.1)
== END | disposition home or self-care (01) ==
PROVIDERS: PCP Family Medicine; Referring Provider Internal Medicine Cardiovascular Disease; Visit Provider Internal Medicine Cardiovascular Disease
DX: I25.10 Atherosclerotic heart disease of native coronary artery without angina pectoris (principal); E11.9 Type 2 diabetes mellitus without complications; R06.02 Shortness of breath; R07.9 Chest pain, unspecified; R55 Syncope and collapse
CPT/HCPCS: 71046; 80048; 85025